=== PATIENT | female | born 1945 | race Caucasian/White ===

== ENCOUNTER → 2018-05-18 | Outpatient (CLI) | payer MEDICARE ==
--- NOTE | 2018-05-18 19:39 | CT ---
EXAMINATION TYPE: CT ChestAbdPelvis w con DATE OF EXAM: 05/18/2018 INDICATION: Colon cancer follow-up. COMPARISON: 02/26/2018, [facility] CT DLP: 665.1 mGycm CONTRAST: Performed with Oral Contrast and with IV Contrast, patient injected with 100 mL of Isovue M300. TECHNIQUE: Axial images at 5 mm thick sections. Reconstructed images in the coronal plane. Delayed images through the kidneys. FINDINGS: CT CHEST: Portion of the thyroid visualized is normal. No suspicious lung nodules or focal infiltrates are present. No enlarged mediastinal or hilar adenopathy is evident. The ascending aorta diameter at the level of the main pulmonary artery is 3.2 cm. The main pulmonary artery diameter at the bifurcation is 2.3 cm. Catheter is in the superior vena cava extending to the tip in the right atrium. CT ABDOMEN: Liver: Normal Spleen: Normal Pancreas: Normal Adrenal glands: The adrenal glands are normal. Gallbladder: Surgically absent. Kidneys: No masses are evident. No hydronephrosis is present. Left peripelvic cysts are present. D elayed images were obtained through the kidneys, which remain unremarkable. Aorta: Vascular calcification is within the aorta. Inferior vena cava: Normal. CT PELVIS: Loops of bowel within the abdomen and pelvis are normal. There are loops of bowel which are incom pletely distended or lack oral contrast limiting their evaluation. Scattered diverticuli are within t he sigmoid colon. Fecal debris is through the colon. Discrete underlying mass is not identified. Oral contrast extends to the distal descending colon region. Anastomosis from prior ascending marina-colect mae is evident. Appendix: Not evident Urinary bladder: Normal. Genitourinary structures: Uterus and ovaries are not identified. No free fluid is within the pelvis Osseous structures: No suspicious lytic or sclerotic lesions. Facet changes are present within the justyna mbar spine. Some degenerative disc changes are present. IMPRESSIONS: 1. No suspicious changes to suggest recurrent or metastatic colon cancer
== END | disposition home or self-care (01) ==
LOC: RADCTMAIN 10:13
PROVIDERS: ATTEND Internal Medicine Hematology & Oncology
DX: Z03.89 Encounter for observation for other suspected diseases and conditions ruled out (principal); C18.0 Malignant neoplasm of cecum
CPT/HCPCS: 82565; 84520; 71260; 74177; 36415; Q9967

== ENCOUNTER → 2018-06-15 | Outpatient (CLI) | payer MEDICARE ==
--- NOTE | 2018-06-15 13:35 | MM ---
Reason for exam: additional evaluation requested from prior study. Last mammogram was performed 9 years and 4 months ago. History: Patient is postmenopausal and has history of other cancer at age 72. Core biopsy of the left breast. 2 core biopsies of the right breast. Took estrogen for 12 years beginning at age 36. Took progesterone for 12 years beginning at age 36. Physical Findings: Nurse did not find any significant physical abnormalities on exam. MG 3D Diag Mammo W/Cad LT CC and MLO view(s) were taken of the left breast. Prior study comparison: April 10, 2018, mammogram. April 08, 2018, mammogram. There are scattered fibroglandular densities. Posterior upper outer quadrant group of calcifictions are unchanged from 3 months ago. Biopsy recommended. These results were verbally communicated with the patient and result sheet given to the patient on 06/15/18. ASSESSMENT: Suspicious, BI-RAD 4 RECOMMENDATION: Surgical consultation and stereotactic core biopsy of the left breast. Called with mammographic findings and has scheduled an appointment for the patient for 06/18/18 at 1:[address] Cobos. PRELIMINARY REPORT CALLED AND FAXED TO DR. COBOS ON 06/15/18.
== END | disposition home or self-care (01) ==
LOC: RADMAMWWP 09:59
PROVIDERS: ATTEND Internal Medicine Hematology & Oncology
DX: R92.8 Other abnormal and inconclusive findings on diagnostic imaging of breast (principal)
CPT/HCPCS: 77065; G0279; 77061

== ENCOUNTER → 2019-05-18 | Outpatient (CLI) | payer MEDICARE ==
--- NOTE | 2019-05-18 16:33 | CT ---
EXAMINATION TYPE: CT ChestAbdPelvis w con DATE OF EXAM: 05/18/2019 COMPARISON: 11/13/2018, 05/18/2018 HISTORY: 73-year-old female Follow up for colon cancer. TECHNIQUE: Contiguous axial scanning of the chest, abdomen, and pelvis performed with IV Contrast, pa tient injected with 100ml mL of Isovue 300. Delayed images through the kidneys were obtained. Coronal /sagittal reconstructions performed. CT DLP: 984.3 mGycm Automated exposure control for dose reduction was used. FINDINGS: CHEST: Heart upper limits of normal in size without pericardial effusion. Aorta normal caliber with conventional branching anatomy and mild arch calcifications. Right anterior chest wall injection port with catheter tip at the cavoatrial junction. No thoracic lymphadenopathy by CT size criteria. Mild hazy dependent atelectasis in the lungs. No consolidation or pleural effusion. ABDOMEN: Subcentimeter hypodensity peripheral right liver lobe is unchanged from 05/18/2018, probably represent ing a tiny cyst. Additional subcentimeter hypodensity medial aspect of the inferior right liver lobe is also unchanged. Portal venous system is patent. No biliary ductal dilatation. Cholecystectomy clips. Adrenal glands, right kidney, spleen, and pancreas appear within normal limits. Some surgical clips noted within the mesentery of the upper to mid abdomen. Parapelvic cyst left kidney unchanged. There is sigmoid diverticulosis without pericolonic inflammatory change. Evidence of prior right hemicolectomy with ileocolonic anastomosis at the level of the mid transverse colon. A 6 mm mesenteric lymph node in the right paramedian mid abdomen previously measured 8 mm on 9 and was not appreciable on 05/18/2018. Possible anterior mesenteric lymph node near the anastomosis measures 5 mm versus 1 cm, previously. Pelvis: Bladder partially distended. Uterus surgically absent. No abnormal fluid collection in the pelvis or pelvic lymphadenopathy. Some surgical clips along the right iliac chain. Bones: Hypertrophic facet arthropathy mid to lower lumbar spine with grade 1 anterolisthesis at L4-L5. Stabl e lucency within the L2 vertebral body probably represents a hemangioma. No osseous destructive proce ss seen. IMPRESSION: 1. STATUS POST RIGHT HEMICOLECTOMY WITH ILEOCOLONIC ANASTOMOSIS AT THE MID TRANSVERSE COLON. 2. A 6 MM RIGHT PARAMEDIAN MID ABDOMINAL MESENTERIC LYMPH NODE MEASURED 8 MM, PREVIOUSLY. AN ANTERIOR MESENTERIC LYMPH NODE NEAR THE ILEOCOLONIC ANASTOMOSIS MEASURES 5 MM VERSUS 1 CM, PREVIOUSLY. QUERY ANY INTERVAL TREATMENT. 3. NO NEW LYMPHADENOPATHY OR OTHER EVIDENCE FOR METASTATIC DISEASE.
== END | disposition home or self-care (01) ==
LOC: RADPROMAIN 13:46
PROVIDERS: ATTEND Internal Medicine Hematology & Oncology
DX: C18.4 Malignant neoplasm of transverse colon (principal)
CPT/HCPCS: 82565; 84520; 71260; 74177; 36415; J1642; Q9967

== ENCOUNTER → 2019-06-21 | Outpatient (CLI) | payer MEDICARE ==
--- NOTE | 2019-06-21 09:09 | MM ---
Reason for exam: additional evaluation requested from prior study. Last mammogram was performed 1 year ago. History: Patient is postmenopausal and has history of other cancer at age 72. Core biopsy of the left breast. 2 core biopsies of the right breast. Took estrogen for 12 years beginning at age 36. Took progesterone for 12 years beginning at age 36. Physical Findings: Nurse did not find any significant physical abnormalities on exam. MG 3D Diag Mammo W/Cad CIELO Bilateral CC and MLO view(s) were taken. Prior study comparison: June 15, 2018, left breast MG 3d diag mammo w/cad LT. April 10, 2018, mammogram. The breast tissue is heterogeneously dense. This may lower the sensitivity of mammography. Grouped calcifications with adjacent asymmetry unchanged for 1 yest. Additional 6 month follow up recommended. Otherwise, no significant change. These results were verbally communicated with the patient and result sheet given to the patient on 06/21/19. ASSESSMENT: Probably benign, BI-RAD 3 RECOMMENDATION: Follow-up diagnostic mammogram of the left breast in 6 months. (total 1.5 year follow up)
== END | disposition home or self-care (01) ==
LOC: RADMAMWWP 08:08
PROVIDERS: ATTEND Internal Medicine Hematology & Oncology
DX: R92.8 Other abnormal and inconclusive findings on diagnostic imaging of breast (principal)
CPT/HCPCS: 77066; G0279; 77062

== ENCOUNTER → 2020-06-16 | Outpatient (CLI) | payer MEDICARE ==
--- NOTE | 2020-06-16 14:53 | MM ---
Reason for exam: additional evaluation requested from prior study. Last mammogram was performed 1 year ago. History: Patient is postmenopausal and has history of other cancer at age 72. Core biopsy of the left breast. 2 core biopsies of the right breast. Took estrogen for 12 years beginning at age 36. Took progesterone for 12 years beginning at age 36. Physical Findings: Nurse did not find any significant physical abnormalities on exam. MG 3D Diag Mammo W/Cad LT CC, MLO, LM, CC with magnification, and LM with magnification view(s) were taken of the left breast. Prior study comparison: June 21, 2019, bilateral MG 3d diag mammo w/cad CIELO. June 15, 2018, left breast MG 3d diag mammo w/cad LT. There are scattered fibroglandular densities. This finding is changed when compared with previous exams. These results were verbally communicated with the patient and result sheet given to the patient on 06/16/20. ASSESSMENT: Suspicious, BI-RAD 4 RECOMMENDATION: Stereotactic core biopsy of the left breast. (2 sites) Called Dr. Cobos's office with mammographic findings. Patient will follow up with her physician in [place] and have the biopsy there. Patient is leaving for [place] and will not return until January 2021. PRELIMINARY REPORT CALLED AND FAXED TO DR. COBOS ON 06/16/20.
== END | disposition home or self-care (01) ==
LOC: RADMAMWWP 12:48
PROVIDERS: ATTEND Internal Medicine Hematology & Oncology
DX: R92.8 Other abnormal and inconclusive findings on diagnostic imaging of breast (principal)
CPT/HCPCS: 77065; G0279; 77061

== ENCOUNTER 2021-02-27 12:10 | Inpatient (IN) | payer MEDICARE ==
[2021-02-27 12:19] LABS: Glucose,Whole Blood 174 mg/dL (75-99)
[2021-02-27] MEDS ORDERED: SODIUM CHLORIDE 0.9% 1,000 ML IV STA (12:20)
[2021-02-27] MEDS ORDERED: ASPIRIN 81 MG PO STA (12:20)
[2021-02-27] MEDS ORDERED: TRIMETHOBENZAMIDE 100 MG/ML 2 ML VIAL IM STA (12:20)
[2021-02-27] MEDS ORDERED: AMIODARONE 360 MG in DEXTROSE 5% IN WATER 200 ML IV ONE ×2 (12:21)
--- NOTE | 2021-02-27 12:25 | ED ---
Arrhythmia/Palpitations HPI - General Stated Complaint: cardiac arrest Time Seen by Provider: 02/27/21 12:19 - History of Present Illness Initial Comments: This is a 75-year-old female with a history of CAD, congestive heart failure with like chest placement presents for department after ventricular arrhythmia and cardiac arrest. The patient recently had stents placed and the like us placed down in [place]. She states that she is planning to have a bypass however they're waiting for her heart function to improve. Prior to her undergoing surgery. She states that she was in her normal state of health and has been doing well when today she got lightheaded and then had a syncopal event. She states her life that shocked her and an ambulance was called. EMS states that the patient was awake and alert when they arrived however suddenly went unresponsive and appeared to go into ventricular tachycardia. [employer] again defibrillated her with results of sinus rhythm with multiple PVCs. She was loaded with 300 mg of amiodarone. The patient's mental status improved in route. Blood pressures ranged from 160 systolic to 60 systolic prior to ar rival. The patient follows with Dr. Nice as an outpatient for cardiology. She states that she recently had an appointment with him. She states over the last few days she's been having diarrhea after meals. No nausea or vomiting. No abdominal pain. No chest pain or shortness of breath or palpitations. She states that she did not have any chest pain, pressure, or shortness of breath today. No diaphoresis. She currently denies any of these things however does complain of feeling a little bit nauseated currently. Otherwise she feels generally weak however has no other Acute complaints. - Related Data Home Medications Medication Instructions Recorded Confirmed Aspirin EC [Ecotrin Low Dose] 81 mg PO DAILY 02/27/21 02/27/21 Bimatoprost [Lumigan .01% Ophth 1 drop LEFT EYE HS 02/27/21 02/27/21 Soln] Brimonidine Tartrate/Timolol 1 drop LEFT EYE BID 02/27/21 02/27/21 [Combigan 0.2%-0.5% Eye Drops] Loperamide [Imodium] 2 mg PO QID PRN 02/27/21 02/27/21 Loteprednol Etabonate [Inveltys] 1 drop RIGHT EYE DAILY 02/27/21 02/27/21 Melatonin 3 mg PO HS PRN 02/27/21 02/27/21 Metoprolol Succinate [Toprol XL] 25 mg PO DAILY 02/27/21 02/27/21 Pantoprazole Sodium [Protonix] 40 mg PO DAILY 02/27/21 02/27/21 Pravastatin Sodium [Pravachol] 80 mg PO HS 02/27/21 02/27/21 Ticagrelor [Brilinta] 90 mg PO BID 02/27/21 02/27/21 amLODIPine [Norvasc] 10 mg PO DAILY 02/27/21 02/27/21 lisinopriL 40 mg PO DAILY 02/27/21 02/27/21 Allergies Allergy/AdvReac Type Severity Reaction Status Date / Time morphine AdvReac Nausea & Verified 02/27/21 12:56 Vomiting Review of Systems ROS Statement: Those systems with pertinent positive or pertinent negative responses have been documented in the HPI. ROS Other: All systems not noted in ROS Statement are negative. General Exam - General Exam Comments Initial Comments: Constitutional: Awake alert patient is somewhat sleepy however will answer questions appropriately and give a history Head: Normocephalic atraumatic Eyes: no conjunctival injection No scleral icterus EOMI Neck: No JVD Supple Heart: Regular rate with multiple ectopic beats normal S1-S2 no murmurs Lungs: Clear to auscultation bilaterally No wheezing No rales Abdomen: Soft nondistended nontender Extremities: Non edematous DP pulses intact Radial pulses intact, the extremities are warm to touch Neuro: A&Ox3 No focal neurologic deficits Psych: Appropriate mood and affect Course Vital Signs 02/27/21 02/27/21 12:12 12:34 Temperature 97.9 F Pulse Rate 86 84 Respiratory 18 18 Rate Blood Pressure 131/49 126/60 O2 Sat by Pulse 96 96 Oximetry - Reevaluation(s) Reevaluation #1: Repeat EKG showing normal sinus rhythm with a rate of 81. There is no abnormal ST segment changes or T-wave inversions. QTC is 532 and QRS is 140. There is a right bundle-branch pathology present. Ectopy has resolved. 02/27/21 12:50 EKG Findings - EKG Comments: EKG Findings:: EKG is showing sinus rhythm with a rate of 94. There are multiple ectopic beats present. There is a right bundle-branch block pathology. QTC is 562. Other intervals appear normal. However QRS is slightly widened likely from the bundle-branch block. Medical Decision Making - Medical Decision Making Is a 75-year-old female who presents emergency department for ventricular tachycardia, sick being cardiac arrest. On arrival the patient was awake and al ert however complaining of generalized fatigue and nausea. Vital signs were stable on arrival. Her monitor and storage bin tender did reveal quite a bit of ectopy and some short runs of ventricular tachycardia. The patient was maintained on amiodarone drip. She is continued to be monitored. She was noted to have hypokalemia and hypomagnesemia and both of these were corrected with IV medications. Dr. Nice was able to evaluate the patient in the emergency department and plans on performing an echocardiogram and agrees with current management at this time. The patient will require ICU monitoring and Dr. Azul and Dr. helm were both updated and agree with plan of care at this time. - Lab Data Result diagrams: 02/27/21 12:23 02/27/21 12:23 Lab Results 02/27/21 02/27/21 02/27/21 Range/Units 12:17 12:23 12:23 WBC 10.8 H (3.8-10.6) k/uL RBC 3.89 (3.80-5.40) m/uL Hgb 11.5 (11.4-16.0) gm/dL Hct 35.2 (34.0-46.0) % MCV 90.5 (80.0-100.0) fL MCH 29.5 (25.0-35.0) pg MCHC 32.6 (31.0-37.0) g/dL RDW 15.3 (11.5-15.5) % Plt Count 381 (150-450) k/uL MPV 8.4 Neutrophils % 87 % Lymphocytes % 6 % Monocytes % 4 % Eosinophils % 1 % Basophils % 0 % Neutrophils # 9.4 H (1.3-7.7) k/uL Lymphocytes # 0.6 L (1.0-4.8) k/uL Monocytes # 0.5 (0-1.0) k/uL Eosinophils # 0.1 (0-0.7) k/uL Basophils # 0.0 (0-0.2) k/uL Sodium 139 (137-145) mmol/L Potassium 3.0 L (3.5-5.1) mmol/L Chloride 113 H (98-107) mmol/L Carbon Dioxide 17 L (22-30) mmol/L Anion Gap 9 mmol/L BUN 15 (7-17) mg/dL Creatinine 1.14 H (0.52-1.04) mg/dL Est GFR (CKD-EPI)AfAm 54 (>60 ml/min/1.73 sqM) Est GFR (CKD-EPI)NonAf 47 (>60 ml/min/1.73 sqM) Glucose 174 H (74-99) mg/dL POC Glucose (mg/dL) 174 H (75-99) mg/dL POC Glu Flight [employer] Scheduler ID Rhonda Branch Calcium 8.3 L (8.4-10.2) mg/dL Magnesium 1.5 L (1.6-2.3) mg/dL Total Bilirubin 0.7 (0.2-1.3) mg/dL AST 26 (14-36) U/L ALT 11 (4-34) U/L Alkaline Phosphatase 68 (38-126) U/L NT-Pro-B Natriuret Pep pg/mL Total Protein 5.7 L (6.3-8.2) g/dL Albumin 3.3 L (3.5-5.0) g/dL 02/27/21 Range/Units 12:23 WBC (3.8-10.6) k/uL RBC (3.80-5.40) m/uL Hgb (11.4-16.0) gm/dL Hct (34.0-46.0) % MCV (80.0-100.0) fL MCH (25.0-35.0) pg MCHC (31.0-37.0) g/dL RDW (11.5-15.5) % Plt Count (150-450) k/uL MPV Neutrophils % % Lymphocytes % % Monocytes % % Eosinophils % % Basophils % % Neutrophils # (1.3-7.7) k/uL Lymphocytes # (1.0-4.8) k/uL Monocytes # (0-1.0) k/uL Eosinophils # (0-0.7) k/uL Basophils # (0-0.2) k/uL Sodium (137-145) mmol/L Potassium (3.5-5.1) mmol/L Chloride (98-107) mmol/L Carbon Dioxide (22-30) mmol/L Anion Gap mmol/L BUN (7-17) mg/dL Creatinine (0.52-1.04) mg/dL Est GFR (CKD-EPI)AfAm (>60 ml/min/1.73 sqM) Est GFR (CKD-EPI)NonAf (>60 ml/min/1.73 sqM) Glucose (74-99) mg/dL POC Glucose (mg/dL) (75-99) mg/dL POC Glu Flight Crew Scheduler ID Calcium (8.4-10.2) mg/dL Magnesium (1.6-2.3) mg/dL Total Bilirubin (0.2-1.3) mg/dL AST (14-36) U/L ALT (4-34) U/L Alkaline Phosphatase (38-126) U/L NT-Pro-B Natriuret Pep 4950 pg/mL Total Protein (6.3-8.2) g/dL Albumin (3.5-5.0) g/dL Critical Care Time Critical Care Time: Yes (VTACH) Total Critical Care Time: 45 Critical Care Time: Ur care time was spent obtaining history from EMS, the patient, and family, exam ining the patient, ordering labs and radiographic studies, interpreting the studies, speaking with consultants. Patient had medications ordered and the patient was reevaluated multiple times. Disposition Clinical Impression: V-tach Disposition: ADMITTED IP TO THIS HOSP Condition: Critical Referrals: Nonstaff,Physician [REFERRING] - 1-2 days
[2021-02-27 12:46] LABS: Basophils % (A) 0 %; Eosinophils # (A) 0.1 k/uL (0-0.7); Eosinophils % (A) 1 %; HCT 35.2 % (34.0-46.0); HGB 11.5 gm/dL (11.4-16.0); Lymphocytes # (A) 0.6 k/uL (1.0-4.8); Lymphocytes % (A) 6 %; MCH 29.5 pg (25.0-35.0); MCHC 32.6 g/dL (31.0-37.0); MCV 90.5 fL (80.0-100.0); Mean Platelet Volume 8.4; Monocytes # (A) 0.5 k/uL (0-1.0); Monocytes % (A) 4 %; Neutrophils # (A) 9.4 k/uL (1.3-7.7); Neutrophils % (A) 87 %; Platelet Count 381 k/uL (150-450); RBC 3.89 m/uL (3.80-5.40); RDW 15.3 % (11.5-15.5); WBC 10.8 k/uL (3.8-10.6)
[2021-02-27 12:52] LABS: Albumin 3.3 g/dL (3.5-5.0); Calcium 8.3 mg/dL (8.4-10.2); Magnesium 1.5 mg/dL (1.6-2.3); Total Bilirubin 0.7 mg/dL (0.2-1.3); Total Protein 5.7 g/dL (6.3-8.2)
[2021-02-27] MEDS: MAGNESIUM SULFATE-D5W PMX 1 GM in DEXTROSE/WATER 1 100ML.BAG IVPB SCH ×2 (13:10→14:36)
[2021-02-27] MEDS: POTASSIUM CHLORIDE 10 MEQ in WATER FOR INJECTION 1 100ML.BAG IVPB SCH ×5 (13:10→21:32)
--- NOTE | 2021-02-27 13:19 | XR ---
EXAMINATION TYPE: XR chest 1V portable DATE OF EXAM: 02/27/2021 COMPARISON: None HISTORY: Chest pain TECHNIQUE: Single frontal view of the chest is obtained. FINDINGS: Mediport catheter seen near surgical clip involving the left lung apex. Heart size is mild ly prominent. No pleural effusion. No interstitial edema. Atherosclerotic change of the aorta. IMPRESSION: No acute process. Mild cardiomegaly.
[2021-02-27] MEDS ORDERED: NALOXONE 0.4 MG/ML 1 ML VIAL IV PRN (13:22)
[2021-02-27 14:57] LABS: INR 1.1 (<1.2); Partial Thromboplastin Time 23.4 sec (22.0-30.0); Prothrombin Time 11.7 sec (9.0-12.0)
[2021-02-27] MEDS: SPIRONOLACTONE 25 MG TAB PO SCH (15:05)
--- NOTE | 2021-02-27 17:28 | ECHOF ---
Referral Reason:cm MEASUREMENTS -------- HEIGHT: 152.4 cm WEIGHT: 65.8 kg BP: IVSd: 1.3 cm (0.6 - 1.1) LVIDd: 3.7 cm (3.9 - 5.3) LVPWd: 1.1 cm (0.6 - 1.1) IVSs: 1.2 cm LVIDs: 3.4 cm LVPWs: 2.0 cm LAESV Index (A-L): 32.81 ml/m Ao Diam: 3.2 cm (2.0 - 3.7) AV Cusp: 1.8 cm (1.5 - 2.6) LA Diam: 3.1 cm (2.7 - 3.8) MV EXCURSION: 12.842 mm (> 18.000) MV EF SLOPE: 66 mm/s (70 - 150) EPSS: 1.8 cm MV E Roel: 1.33 m/s MV DecT: 193 ms MV A Roel: 0.62 m/s MV E/A Ratio: 2.16 RAP: 5.00 mmHg RVSP: 9.79 mmHg FINDINGS -------- This was a technically adequate study. The left ventricular size is normal. There is mild concentric left ventricular hypertrophy. Overa ll left ventricular systolic function is severely impaired with, an EF between 25 - 30 %. Basal Seg ment Lv only. The right ventricle is normal in size. LA is midly dilated 29-33ml/m2. The right atrial size is normal. The aortic valve is trileaflet and appears structurally normal. The mitral valve is normal. Mild mitral regurgitation is present. The tricuspid valve appears structurally normal. Mild tricuspid regurgitation present. Right vent ricular systolic pressure is normal at < 35 mmHg. There is no pulmonic regurgitation present. The aortic root size is normal. There is no pericardial effusion. CONCLUSIONS -------- 1. The left ventricular size is normal. 2. There is mild concentric left ventricular hypertrophy. 3. Overall left ventricular systolic function is severely impaired with, an EF between 25 - 30 %. 4. Basal Segment Lv only. apex is akinetic 5. LA is midly dilated 29-33ml/m2. 6. Mild mitral regurgitation is present. 7. Mild tricuspid regurgitation present. 8. There is no pericardial effusion. MUD JACK NOZZLE WORKER: Margareth Flores RDCS
--- NOTE | 2021-02-27 17:31 | P.CNPUL ---
History of Present Illness Consult date: 02/27/21 Requesting physician: Ritu Walker Reason for consult: other (Recurrent episodes of ventricular tachycardia) Chief complaint: Syncopal episodes and ventricular tachycardia History of present illness: This is a 75-year-old female with history of coronary artery disease, previous [place], previous stent placement 2 in [place], patient had a life vest placed recently while in [place], and stent placement in [place], apparently the patient has history of severe LV dysfunction, and the plan was to decide in the future whether the patient would require AICD placement. This will depend on her LV function improvement if any. I am not certain whether the patient was also being considered for CABG. Patient has been experiencing since early this morning intermittent episodes of lightheadedness and had 1 syncopal event. Patient had 1 defibrillation done by her life vest earlier this morning, and since then she had at least 5 further episodes. EMS arrived to the scene after her initial defibrillation. Patient was almost going into a syncopal episode, and she was noted to have ventricular tachycardia. Patient had a witnessed defibrillation done by the life vest when they were at the scene. On the monitor the patient had ventricular tachycardia and later on had multiple PVCs. Patient was loaded with 300 mg of amiodarone, and arrangements were made for her to be brought into the ER. Patient normally sees Dr. Nice on outpatient basis. And he will be seeing the patient in the ER. During my evaluation, the patient had a bit of nausea but no palpitations, no chest pain, no shortness of breath. EKG in the ER showed normal sinus rhythm rate of 81, no acute ischemic changes noted. Labs in the ER showed normal CBC. Normal pro time and INR. Low potassium of 3.0 bicarb is 17 BUN of 15 creatinine 1.14, BNP level was 4950 troponin 0.024. PCR for COVID-19 was negative. Chest x-ray showed no evidence of infiltrate and no evidence of pulmonary edema considering the patient is having intermittent episodes of ventricular tachycardia, I was asked to see the patient for admission to the ICU. I will accept the patient to be admitted to the ICU, and cardiology to see the patient in consultation Review of Systems Constitutional: Weakness, no weight loss, no fever, no chills. HEENT: Negative. Pulmonary: Negative. Cardiac: As noted in HPI. GI: Intermittent episodes of nausea Genitourinary: Negative. Musculoskeletal: Negative Endocrine: Negative Hematologic: Negative Neurologic: Near syncopal episode. Psychiatric: Negative. Skin: Negative. Past Medical History Past Medical History: Cancer, Chest Pain / Angina Additional Past Medical History / Comment(s): Colon. History of Any Multi-Drug Resistant Organisms: None Reported Past Surgical History: Heart Catheterization, Heart Catheterization With Stent Past Psychological History: No Psychological Hx Reported Smoking Status: Never smoker Past Alcohol Use History: Occasional Past Drug Use History: None Reported Medications and Allergies Home Medications Medication Instructions Recorded Confirmed Type Aspirin EC [Ecotrin Low Dose] 81 mg PO DAILY 02/27/21 02/27/21 History Bimatoprost [Lumigan .01% Ophth 1 drop LEFT EYE HS 02/27/21 02/27/21 History Soln] Brimonidine Tartrate/Timolol 1 drop LEFT EYE BID 02/27/21 02/27/21 History [Combigan 0.2%-0.5% Eye Drops] Loperamide [Imodium] 2 mg PO QID PRN 02/27/21 02/27/21 History Loteprednol Etabonate [Inveltys] 1 drop RIGHT EYE DAILY 02/27/21 02/27/21 History Melatonin 3 mg PO HS PRN 02/27/21 02/27/21 History Metoprolol Succinate [Toprol XL] 25 mg PO DAILY 02/27/21 02/27/21 History Pantoprazole Sodium [Protonix] 40 mg PO DAILY 02/27/21 02/27/21 History Pravastatin Sodium [Pravachol] 80 mg PO HS 02/27/21 02/27/21 History Ticagrelor [Brilinta] 90 mg PO BID 02/27/21 02/27/21 History amLODIPine [Norvasc] 10 mg PO DAILY 02/27/21 02/27/21 History lisinopriL 40 mg PO DAILY 02/27/21 02/27/21 History Allergies Allergy/AdvReac Type Severity Reaction Status Date / Time morphine AdvReac Nausea & Verified 02/27/21 12:56 Vomiting Physical Exam Vitals: Vital Signs Temp Pulse Resp BP Pulse Ox 02/27/21 16:48 75 16 121/60 99 02/27/21 15:00 67 20 112/57 98 02/27/21 14:50 71 18 112/57 96 02/27/21 14:40 71 20 117/58 98 02/27/21 14:30 70 22 115/62 94 L 02/27/21 14:20 76 18 115/62 90 L 02/27/21 14:10 75 18 114/59 99 02/27/21 14:00 75 18 115/58 94 L 02/27/21 13:50 70 18 115/58 97 02/27/21 13:40 74 18 109/56 98 02/27/21 13:20 77 18 121/57 98 02/27/21 13:10 78 18 128/76 97 02/27/21 13:00 89 18 114/56 99 02/27/21 12:50 81 18 114/56 97 02/27/21 12:40 82 18 126/60 98 02/27/21 12:34 83 18 126/60 96 02/27/21 12:12 97.9 F 86 18 131/49 96 Intake and Output 02/27/21 02/27/21 02/27/21 06:59 14:59 22:59 Other: Weight 63.503 kg Physical Exam: Revealed a 75-year-old female in no distress, pleasant. Head: Atraumatic, normocephalic. HEENT:[Neck is supple.] [No neck masses.] [No thyromegaly.] [No JVD.] Chest: [Clear throughout, no crackles, no rhonchi, no wheezes.] Cardiac Exam: [Normal S1 and S2, no S3 gallop, no murmur.] Abdomen: [Soft, nontender, no megaly, no rebound, no guarding, normal bowel sounds.] Extremities: [No clubbing, no edema, no cyanosis.] Neurological Exam: [No focal neurologic deficit.] Alert and oriented 3. Psychiatric: Normal mood affect and normal mental status examination. Skin: No rashes. Results - Laboratory Findings CBC and BMP: 02/27/21 12:23 02/27/21 12:23 PT/INR, D-dimer PT 11.7 sec (9.0-12.0) 02/27/21 12:23 INR 1.1 (<1.2) 02/27/21 12:23 Abnormal lab findings: Abnormal Labs 02/27/21 02/27/21 02/27/21 12:17 12:23 12:23 WBC 10.8 H Neutrophils # 9.4 H Lymphocytes # 0.6 L Potassium 3.0 L Chloride 113 H Carbon Dioxide 17 L Creatinine 1.14 H Glucose 174 H POC Glucose (mg/dL) 174 H Calcium 8.3 L Magnesium 1.5 L Total Protein 5.7 L Albumin 3.3 L - Diagnostic Findings Chest x-ray: image reviewed (As noted in HPI) Additional studies: EKG: As noted in HPI Assessment and Plan Assessment: Impression: Recurrent ventricular tachycardia Recurrent activation of life vest secondary to ventricular tachycardia Hypokalemia and hypomagnesemia, being treated as per protocol. History of underlying coronary artery disease. Acute kidney injury secondary to ventricular tachycardia and LV dysfunction Ischemic cardiomyopathy and LV dysfunction Recommendation: Transfer patient to ICU Continue close monitoring Address electrolyte imbalance including hypokalemia and hypomagnesemia Continue amiodarone as per protocol. Cardiology to see on consultation. Patient may require AICD. We'll continue to follow while in ICU. Time with Patient: Greater than 30
[2021-02-27 19:25] LABS: Glucose,Whole Blood 130 mg/dL (75-99)
[2021-02-27] MEDS: AMIODARONE 450 MG in DEXTROSE 5% IN WATER 250 ML IV SCH ×2 (20:04)
[2021-02-27] MEDS: METOPROLOL SUCCINATE (ER) 25 MG TAB.ER.24H PO SCH (20:05)
[2021-02-27] MEDS: TICAGRELOR 90 MG TAB PO SCH (20:05)
[2021-02-27] MEDS ORDERED: ONDANSETRON 4 MG/2 ML VIAL IVP PRN (20:16)
[2021-02-27] MEDS ORDERED: Potassium Replacement Protocol 1 EACH MISC MISCELLANE PRN (20:20)
[2021-02-27] MEDS: PRAVASTATIN SODIUM 80 MG TAB PO SCH (20:39)
--- NOTE | 2021-02-27 20:53 | CONS ---
CONSULTATION ATTENDING PHYSICIAN: Dr. Cobos. Mrs. Contreras is a 75-year-old female with a history of colon cancer, followed by Dr. Cobos, who recently returned from [place]. In November of this year while in [place], had evidence of an acute anterior wall myocardial infarction and received two stents. She had evidence of cardiomyopathy and had a LifeVest. She was seen in out office for the first time last week and she was stable clinically. She had no symptoms of chest discomfort. Her breathing has been stable. She had no dizziness or palpitation. She had no significant peripheral edema. For the last three days she has been having nausea and vomiting and diarrhea and this morning had a syncopal episode and what appears a discharge from the Life vest and had another episode of discharge in the ambulance. In the emergency room she is in sinus mechanism with frequent single PVCs. The patient denies any chest pain. She is feeling weak and tired. She is still having some nausea. She did not feel the discharge from the device. Her coronary risk factors are remarkable for history of hypertension. She is a nonsmoker, nondiabetic. MEDICATION: Her medications at home include lisinopril 40 mg daily, amlodipine 10 mg daily, Brilinta 90 mg twice a day, pravastatin 80 mg daily, Protonix 40 mg daily, metoprolol succinate 25 mg daily, ( ), Imodium, aspirin, and the eyedrops. REVIEW OF SYSTEMS: RESPIRATORY SYSTEM: She had dyspnea on exertion. She has the fatigue. No recent cough or fever. GI SYSTEM: She had nausea, vomiting, diarrhea. No GI bleeding. SYSTEM: No dysuria or hematuria. NERVOUS SYSTEM: No stroke or seizure. PHYSICAL EXAMINATION: She is a 75-year-old female, alert, appears to be tired. Blood pressure 122/60 with a heart rate in the 80s. HEAD: Normocephalic. EYES: Sclerae anicteric, NECK: Good carotid upstroke. No bruit. LUNGS: Clear to auscultation. HEART: Regular rate and rhythm, S1, S2. No S3 with extra systole and a systolic murmur. No diastolic murmur, no rub. ABDOMEN: Soft, nontender. Positive bowel sounds. No organomegaly. EXTREMITIES: No edema. Chest x-ray revealed no acute changes. EKG revealed a sinus mechanism with right bundle branch block, evidence of anterior wall myocardial infarction and single PVCs with left axis deviation and evidence of inferior wall myocardial infarction consistent with anteroapical myocardial infarction. LAB DATA: Revealed potassium 3.0, BUN and creatinine 15 and 1.1, magnesium 1.5, hemoglobin of 11.5, white blood cell of 10.8. IMPRESSION: 1. Syncopal episode, probable ventricular tachycardia. Could be exacerbated by the hypokalemia and hypomagnesemia. 2. History of ischemic cardiomyopathy status post stenting of the LAD in a setting of an acute myocardial infarction in [place]. 3. Status post LifeVest for the ischemic cardiomyopathy. 4. Diarrhea and nausea, etiology unclear. 5. History of hypertension. 6. History of colon cancer, stable, followed by Dr. Cobos. RECOMMENDATION: Will replace her potassium and magnesium. I will restart her on a beta chris. Will continue IV amiodarone. Will continue on aspirin and Brilinta. I will obtain echocardiogram with Doppler. Follow her cardiac enzymes. We will download the data from the LifeVest and depending on her progress, further recommendations will be made. Thank you for this consult. We will follow with you. MMODL / IJN: [id number] /
[2021-02-27] MEDS ORDERED: TRIMETHOBENZAMIDE 100 MG/ML 2 ML VIAL IM PRN (20:58)
[2021-02-27] MEDS ORDERED: POTASSIUM CHLORIDE ER 20 MEQ TAB.ER PO ONE (22:30)
[2021-02-28 05:13] LABS: Basophils % (A) 0 %; Eosinophils % (A) 0 %; HCT 34.5 % (34.0-46.0); HGB 11.2 gm/dL (11.4-16.0); Lymphocytes # (A) 0.6 k/uL (1.0-4.8); Lymphocytes % (A) 5 %; MCH 29.5 pg (25.0-35.0); MCHC 32.3 g/dL (31.0-37.0); MCV 91.1 fL (80.0-100.0); Mean Platelet Volume 8.6; Monocytes # (A) 0.5 k/uL (0-1.0); Monocytes % (A) 5 %; Neutrophils # (A) 9.8 k/uL (1.3-7.7); Neutrophils % (A) 89 %; Platelet Count 275 k/uL (150-450); RBC 3.79 m/uL (3.80-5.40); RDW 15.3 % (11.5-15.5)
[2021-02-28 05:29] LABS: ALT 17 U/L (4-34); AST 32 U/L (14-36); African American GFR (CKD) >90 (>60 ml/min/1.73 sqM); Albumin 3.4 g/dL (3.5-5.0); Alkaline Phosphatase 82 U/L (38-126); Anion Gap 10 mmol/L; Blood Urea Nitrogen 8 mg/dL (7-17); Calcium 8.8 mg/dL (8.4-10.2); Carbon Dioxide 17 mmol/L (22-30); Chloride 113 mmol/L (98-107); Glucose 98 mg/dL (74-99); Non-African American GFR(CKD) 80 (>60 ml/min/1.73 sqM); Potassium 4.2 mmol/L (3.5-5.1); Sodium 140 mmol/L (137-145); Total Bilirubin 0.5 mg/dL (0.2-1.3); Total Protein 5.9 g/dL (6.3-8.2)
--- NOTE | 2021-02-28 08:53 | PN ---
PROGRESS NOTE Mrs. Contreras is a 75-year-old female with a known history of colon cancer, followed by sarai Palm, who has sustained an acute myocardial infarction in the anterior wall in [place], underwent stenting. At that time had severe ischemic cardiomyopathy, has been maintained on a LifeVest pending repeat evaluation of left ventricular systolic function. She presented yesterday to the hospital with symptoms of nausea and vomiting and diarrhea. Had syncope with probable discharge from the LifeVest. The rhythm strip from the LifeVest downloads are not available at this time. She is feeling better this morning. Her breathing is better. She still has mild nausea but no diarrhea. She has no further ventricular tachycardia. She was hypokalemic and hypomagnesemic on presentation that has been replaced. She had a repeat echocardiogram yesterday that revealed ejection fraction of 25% to 30% with mild mitral and tricuspid regurgitation. She continues to be at this time on IV amiodarone, aspirin once a day, lisinopril 20 mg daily, metoprolol succinate 25 mg twice a day, pravastatin 80 mg daily, spironolactone 25 mg daily, Brilinta 90 mg twice a day. PHYSICAL EXAMINATION: Blood pressure 125/60 with a heart rate in 70s. LUNGS: Clear. HEART: Regular rate and rhythm S1, S2. No S3. No rub. ABDOMEN: Soft and nontender. EXTREMITIES: No edema. LAB DATA: Revealed hemoglobin of 11.2 BUN and creatinine of 8 and 0.73. Her troponin 0.026 and 0.022. IMPRESSION: 1. Syncopal episode with probable ventricular tachycardia and discharge from the LifeVest. 2. Severe ischemic cardiomyopathy, unchanged with no significant improvement. 3. Status post stenting of the left anterior descending in [place] in November. 4. History of colon cancer, stable. 5. Hypokalemia and hypomagnesemia, treated. RECOMMENDATION: From the cardiac standpoint in view of the event, I will obtain consultation with Dr. Upton to proceed with an ICD implantation. I discussed with the patient those findings and recommendation and she has full understanding and agreement. MMODL / IJN: [id number] /
[2021-02-28] MEDS: TICAGRELOR 90 MG TAB PO SCH ×2 (09:59→22:46)
[2021-02-28] MEDS: lisinopriL 20 MG TAB PO SCH (09:59)
[2021-02-28] MEDS: METOPROLOL SUCCINATE (ER) 25 MG TAB.ER.24H PO SCH ×2 (09:59→19:37)
[2021-02-28] MEDS: ASPIRIN 81 MG PO SCH (09:59)
[2021-02-28] MEDS: SPIRONOLACTONE 25 MG TAB PO SCH (10:00)
--- NOTE | 2021-02-28 10:08 | P.HPIM ---
History of Present Illness H&P Date: 02/27/21 Valerie Contreras, he is a 75-year-old female who presented to [facility] after having a syncopal episode, patient has a known history of coronary artery disease she recently had cardiac catheterization with stent placement, she was told that she needs coronary artery bypass surgery, however surgeon was waiting for her cardiac function to improve. In the meanwhile patient had a life vest placed on. Patient stated that she felt lightheaded and then had a syncopal episode, apparently patient had a ventricular arrhythmia and her life vest shocked her, EMS were called patient initially was alert and oriented when EMS arrived however he had a second episode of unresponsiveness, and apparently her life vest shocked her again. Patient was brought in to [facility] emergency room, on arrival to emergency room she was alert and oriented 3 in no distress, she denied having any chest pain or shortness of breath, vital examination on presentation revealed a temperature of 97.9 pulse 86 respiration 18 blood pressure 131/49 pulse ox 96% on room air. Laboratory data revealed a white blood count of 10.8 hemoglobin 11.5 platelet count 381 sodium 139 potassium 3.0 chloride 113 CO2 17 BUN 15 creatinine 1.14 glucose 174 troponin level 0.0-4 BNP 4950 COVID-19 PCR was negative , chest x- ray done in the emergency room revealed no acute pulmonary process mild cardio megaly , first EKG done in the emergency room revealed undetermined rhythm with right bundle branch block and T-wave abnormalities , repeat EKG revealed normal sinus rhythm with right bundle branch block and T-wave abnormality in the anterior and lateral . she was admitted to intensive care unit for further evaluation and treatment. Past Medical History Past Medical History: Cancer, Chest Pain / Angina Additional Past Medical History / Comment(s): Colon. History of Any Multi-Drug Resistant Organisms: None Reported Past Surgical History: Heart Catheterization, Heart Catheterization With Stent Past Psychological History: No Psychological Hx Reported Smoking Status: Never smoker Past Alcohol Use History: Occasional Past Drug Use History: None Reported Medications and Allergies Home Medications Medication Instructions Recorded Confirmed Type Aspirin EC [Ecotrin Low Dose] 81 mg PO DAILY 02/27/21 02/27/21 History Bimatoprost [Lumigan .01% Ophth 1 drop LEFT EYE HS 02/27/21 02/27/21 History Soln] Brimonidine Tartrate/Timolol 1 drop LEFT EYE BID 02/27/21 02/27/21 History [Combigan 0.2%-0.5% Eye Drops] Loperamide [Imodium] 2 mg PO QID PRN 02/27/21 02/27/21 History Loteprednol Etabonate [Inveltys] 1 drop RIGHT EYE DAILY 02/27/21 02/27/21 History Melatonin 3 mg PO HS PRN 02/27/21 02/27/21 History Metoprolol Succinate [Toprol XL] 25 mg PO DAILY 02/27/21 02/27/21 History Pantoprazole Sodium [Protonix] 40 mg PO DAILY 02/27/21 02/27/21 History Pravastatin Sodium [Pravachol] 80 mg PO HS 02/27/21 02/27/21 History Ticagrelor [Brilinta] 90 mg PO BID 02/27/21 02/27/21 History amLODIPine [Norvasc] 10 mg PO DAILY 02/27/21 02/27/21 History lisinopriL 40 mg PO DAILY 02/27/21 02/27/21 History Allergies Allergy/AdvReac Type Severity Reaction Status Date / Time morphine AdvReac Nausea & Verified 02/27/21 12:56 Vomiting Physical Exam Vitals: Vital Signs Temp Pulse Resp BP Pulse Ox 02/27/21 18:03 72 20 139/66 100 02/27/21 16:48 75 16 121/60 99 02/27/21 15:00 67 20 112/57 98 02/27/21 14:50 71 18 112/57 96 02/27/21 14:40 71 20 117/58 98 02/27/21 14:30 70 22 115/62 94 L 02/27/21 14:20 76 18 115/62 90 L 02/27/21 14:10 75 18 114/59 99 02/27/21 14:00 75 18 115/58 94 L 02/27/21 13:50 70 18 115/58 97 02/27/21 13:40 74 18 109/56 98 02/27/21 13:20 77 18 121/57 98 02/27/21 13:10 78 18 128/76 97 02/27/21 13:00 89 18 114/56 99 02/27/21 12:50 81 18 114/56 97 02/27/21 12:40 82 18 126/60 98 02/27/21 12:34 83 18 126/60 96 02/27/21 12:12 97.9 F 86 18 131/49 96 Intake and Output 02/27/21 02/27/21 02/27/21 06:59 14:59 22:59 Other: Weight 63.503 kg In general patient is alert and oriented x3 in no distress HEENT head normocephalic and atraumatic Neck is supple no JVD no goiter no lymphadenopathy no carotid bruit Chest examination is clear to auscultation no crackles no wheezing Cardiac exam reveals regular heart sounds S1 and S2 no gallops no murmurs Abdomen is soft nontender no organomegaly with normal bowel sounds Extremity exam reveals no edema no cyanosis or clubbing Neurological examination reveals no gross focal deficits Results CBC & Chem 7: 02/27/21 12:23 02/27/21 12:23 Labs: Abnormal Lab Results - Last 24 Hours (Table) 02/27/21 02/27/21 02/27/21 Range/Units 12:17 12:23 12:23 WBC 10.8 H (3.8-10.6) k/uL Neutrophils # 9.4 H (1.3-7.7) k/uL Lymphocytes # 0.6 L (1.0-4.8) k/uL Potassium 3.0 L (3.5-5.1) mmol/L Chloride 113 H (98-107) mmol/L Carbon Dioxide 17 L (22-30) mmol/L Creatinine 1.14 H (0.52-1.04) mg/dL Glucose 174 H (74-99) mg/dL POC Glucose (mg/dL) 174 H (75-99) mg/dL Calcium 8.3 L (8.4-10.2) mg/dL Magnesium 1.5 L (1.6-2.3) mg/dL Total Protein 5.7 L (6.3-8.2) g/dL Albumin 3.3 L (3.5-5.0) g/dL 02/27/21 Range/Units 19:23 WBC (3.8-10.6) k/uL Neutrophils # (1.3-7.7) k/uL Lymphocytes # (1.0-4.8) k/uL Potassium (3.5-5.1) mmol/L Chloride (98-107) mmol/L Carbon Dioxide (22-30) mmol/L Creatinine (0.52-1.04) mg/dL Glucose (74-99) mg/dL POC Glucose (mg/dL) 130 H (75-99) mg/dL Calcium (8.4-10.2) mg/dL Magnesium (1.6-2.3) mg/dL Total Protein (6.3-8.2) g/dL Albumin (3.5-5.0) g/dL Assessment and Plan Plan: Episodes of ventricular tachycardia, with syncope and loss of consciousness Underlying history of ischemic cardiomyopathy Hypokalemia and hypomagnesemia Acute kidney injury Underlying history of hypertension Underlying history of hyperlipidemia Underlying history of coronary artery disease with recent angioplasty and stent placement Patient was started on IV amiodarone in the emergency room She was admitted to intensive care unit Echocardiogram ordered Cardiology consultation and pulmonary consultation is requested
--- NOTE | 2021-02-28 10:12 | P.PN ---
Subjective Progress Note Date: 02/28/21 Valerie Contreras, he is a 75-year-old female who presented to [facility] after having a syncopal episode, patient has a known history of coronary artery disease she recently had cardiac catheterization with stent placement, she was told that she needs coronary artery bypass surgery, however surgeon was waiting for her cardiac function to improve. In the meanwhile patient had a life vest placed on. Patient stated that she felt lightheaded and then had a syncopal episode, apparently patient had a ventricular arrhythmia and her life vest shocked her, EMS were called patient initially was alert and oriented when EMS arrived however he had a second episode of unresponsiveness, and apparently her life vest shocked her again. Patient was brought in to [facility] emergency room, on arrival to emergency room she was alert and oriented 3 in no distress, she denied having any chest pain or shortness of breath, vital examination on presentation revealed a temperature of 97.9 pulse 86 respiration 18 blood pressure 131/49 pulse ox 96% on room air. Laboratory data revealed a white blood count of 10.8 hemoglobin 11.5 platelet count 381 sodium 139 potassium 3.0 chloride 113 CO2 17 BUN 15 creatinine 1.14 glucose 174 troponin level 0.0-4 BNP 4950 COVID-19 PCR was negative , chest x- ray done in the emergency room revealed no acute pulmonary process mild cardiomegaly , first EKG done in the emergency room revealed undetermined rhythm with right bundle branch block and T-wave abnormalities , repeat EKG revealed normal sinus rhythm with right bundle branch block and T-wave abnormality in the anterior and lateral . she was admitted to intensive care unit for further evaluation and treatment. On 02/28/2021 patient alert and oriented 3. Patient currently resting in the intensive care unit. She remains on IV amiodarone. Per cardiology plans for ICD placement. Patient reports she has had diarrhea for the past 6 days which could contribute to her electrolyte imbalance. Patient reports occasional nausea and vomiting. Will order stool for C. diff and stool culture. Continue electrolyte replacement. At this time patient denies chest pain or shortness breath. Patient denies any urinary burning or frequency Objective - Vital Signs Vital signs: Vital Signs Temp 97.7 F 02/28/21 04:00 Pulse 72 02/28/21 07:00 Resp 16 02/28/21 07:00 BP 125/66 02/28/21 07:00 Pulse Ox 94 L 02/28/21 07:00 Intake & Output 02/27/21 02/28/21 02/28/21 18:59 06:59 18:59 Intake Total 1510 10 Output Total 1565 250 Balance -55 -240 Weight 63.503 kg 71.1 kg Intake: IV 1110 10 0.9 KVO 10 10 Potassium Chloride 10 meq 100 In Water For Injection 1 100ml.bag @ 100 mls/hr IVPB Q1HR SPRING Rx#: [id number] Sodium Chloride 0.9% 1, 1000 000 ml @ 100 mls/hr IV . Q10H STA Rx#:[id number] Oral 400 Output: Urine 1565 250 Other: Voiding Method Indwelling Catheter - Exam In general patient is alert and oriented x3 in no distress HEENT head normocephalic and atraumatic Neck is supple no JVD no goiter no lymphadenopathy no carotid bruit Chest examination is clear to auscultation no crackles no wheezing Cardiac exam reveals regular heart sounds S1 and S2 no gallops no murmurs Abdomen is soft nontender no organomegaly with normal bowel sounds Extremity exam reveals no edema no cyanosis or clubbing Neurological examination reveals no gross focal deficits - Labs CBC & Chem 7: 02/28/21 04:48 02/28/21 04:48 Labs: Abnormal Lab Results - Last 24 Hours (Table) 02/27/21 02/27/21 02/27/21 Range/Units 12:17 12:23 12:23 WBC 10.8 H (3.8-10.6) k/uL RBC (3.80-5.40) m/uL Hgb (11.4-16.0) gm/dL Neutrophils # 9.4 H (1.3-7.7) k/uL Lymphocytes # 0.6 L (1.0-4.8) k/uL Potassium 3.0 L (3.5-5.1) mmol/L Chloride 113 H (98-107) mmol/L Carbon Dioxide 17 L (22-30) mmol/L Creatinine 1.14 H (0.52-1.04) mg/dL Glucose 174 H (74-99) mg/dL POC Glucose (mg/dL) 174 H (75-99) mg/dL Calcium 8.3 L (8.4-10.2) mg/dL Magnesium 1.5 L (1.6-2.3) mg/dL Total Protein 5.7 L (6.3-8.2) g/dL Albumin 3.3 L (3.5-5.0) g/dL 02/27/21 02/28/21 02/28/21 Range/Units 19:23 04:48 04:48 WBC 11.0 H (3.8-10.6) k/uL RBC 3.79 L (3.80-5.40) m/uL Hgb 11.2 L (11.4-16.0) gm/dL Neutrophils # 9.8 H (1.3-7.7) k/uL Lymphocytes # 0.6 L (1.0-4.8) k/uL Potassium (3.5-5.1) mmol/L Chloride 113 H (98-107) mmol/L Carbon Dioxide 17 L (22-30) mmol/L Creatinine (0.52-1.04) mg/dL Glucose (74-99) mg/dL POC Glucose (mg/dL) 130 H (75-99) mg/dL Calcium (8.4-10.2) mg/dL Magnesium (1.6-2.3) mg/dL Total Protein 5.9 L (6.3-8.2) g/dL Albumin 3.4 L (3.5-5.0) g/dL Assessment and Plan Plan: Episodes of ventricular tachycardia, with syncope and loss of consciousness Underlying history of ischemic cardiomyopathy. 2-D echo completed showing an EF of 25-30% Hypokalemia and hypomagnesemia Acute kidney injury Underlying history of hypertension Underlying history of hyperlipidemia Underlying history of coronary artery disease with recent angioplasty and stent placement Diarrhea. Stool for C. diff and stool culture ordered She remains on IV amiodarone Cardiology and critical care service is following Per cardiology plans for AICD placement Stool for C. diff and stool cultures ordered replace electrolytes per protocol
--- NOTE | 2021-02-28 13:52 | P.PN ---
Subjective Progress Note Date: 02/28/21 Principal diagnosis: Recurrent ventricular tachycardia This is a 75-year-old female with history of coronary artery disease, previous [place], previous stent placement 2 in [place], patient had a life vest placed recently while in [place], and stent placement in [place], apparently the patient has history of severe LV dysfunction, and the plan was to decide in the future whether the patient would require AICD placement. This will depend on her LV function improvement if any. I am not certain whether the patient was also being considered for CABG. Patient has been experiencing since early this morning intermittent episodes of lightheadedness and had 1 syncopal event. Kimberly ent had 1 defibrillation done by her life vest earlier this morning, and since then she had at least 5 further episodes. EMS arrived to the scene after her initial defibrillation. Patient was almost going into a syncopal episode, and she was noted to have ventricular tachycardia. Patient had a witnessed defibrillation done by the life vest when they were at the scene. On the monitor the patient had ventricular tachycardia and later on had multiple PVCs. Patient was loaded with 300 mg of amiodarone, and arrangements were made for her to be brought into the ER. Patient normally sees Dr. Nice on outpatient basis. And he will be seeing the patient in the ER. During my evaluation, the patient had a bit of nausea but no palpitations, no chest pain, no shortness of breath. EKG in the ER showed normal sinus rhythm rate of 81, no acute ischemic changes noted. Labs in the ER showed normal CBC. Normal pro time and INR. Low potassium of 3.0 bicarb is 17 BUN of 15 creatinine 1.14, BNP level was 4950 troponin 0.024. PCR for COVID-19 was negative. Chest x-ray showed no evidence of infiltrate and no evidence of pulmonary edema considering the patient is having intermittent episodes of ventricular tachycardia, I was asked to see the patient for admission to the ICU. I will accept the patient to be admitted to the ICU, and cardiology to see the patient in consultation Age and was reevaluated today on 02/28/2021, patient remains in the ICU, I saw her yesterday on consultation, patient had a new life vest placed yesterday, no further episodes of ventricular tachycardia since she was admitted to the ICU. Repeat echocardiogram showed poor LV function with ejection fraction of 25-50%. Patient remains on amiodarone at 0.5 mg her minutes. Her IV fluid to KVO. Patient is on room air and over/is 93%. She is in sinus rhythm, evaluated by cardiology, and she will be seen by Dr. Flores for possible ICD placement. Labs today were basically unremarkable including normal CBC and normal electrolytes normal renal profile Objective - Vital Signs Vital signs: Vital Signs Temp 97.7 F 02/28/21 04:00 Pulse 90 02/28/21 13:00 Resp 22 02/28/21 13:00 BP 139/104 02/28/21 13:00 Pulse Ox 90 L 02/28/21 13:00 Intake & Output 02/27/21 02/28/21 02/28/21 18:59 06:59 18:59 Intake Total 1510 40 Output Total 1565 800 Balance -55 -760 Weight 63.503 kg 71.1 kg Intake: IV 1110 40 0.9 KVO 10 40 Potassium Chloride 10 meq 100 In Water For Injection 1 100ml.bag @ 100 mls/hr IVPB Q1HR [facility] Rx#: [id number] Sodium Chloride 0.9% 1, 1000 000 ml @ 100 mls/hr IV . Q10H [facility] Rx#:[id number] Oral 400 Output: Urine 1565 800 Other: Voiding Method Indwelling Catheter Indwelling Catheter - Exam Physical Exam: Revealed a 75-year-old female in no distress, pleasant. On room air. Head: Atraumatic, normocephalic. HEENT:[Neck is supple.] [No neck masses.] [No thyromegaly.] [No JVD.] Chest: [Clear throughout, no crackles, no rhonchi, no wheezes.] Cardiac Exam: [Normal S1 and S2, no S3 gallop, no murmur.] Abdomen: [Soft, nontender, no megaly, no rebound, no guarding, normal bowel sounds.] Extremities: [No clubbing, no edema, no cyanosis.] Neurological Exam: [No focal neurologic deficit.] Alert and oriented 3. Psychiatric: Normal mood affect and normal mental status examination. Skin: No rashes. - Labs CBC & Chem 7: 02/28/21 04:48 02/28/21 04:48 Labs: Abnormal Lab Results - Last 24 Hours (Table) 02/27/21 02/28/2102/28/21 Range/Units 19:23 04:48 04:48 WBC 11.0 H (3.8-10.6) k/uL RBC 3.79 L (3.80-5.40) m/uL Hgb 11.2 L (11.4-16.0) gm/dL Neutrophils # 9.8 H (1.3-7.7) k/uL Lymphocytes # 0.6 L (1.0-4.8) k/uL Chloride 113 H (98-107) mmol/L Carbon Dioxide 17 L (22-30) mmol/L POC Glucose (mg/dL) 130 H (75-99) mg/dL Total Protein 5.9 L (6.3-8.2) g/dL Albumin 3.4 L (3.5-5.0) g/dL Assessment and Plan Assessment: Impression: Ischemic cardiomyopathy and poor LV function. Recurrent ventricular tachycardia Hypokalemia and hypomagnesemia, being treated as per protocol. History of underlying coronary artery disease. Acute kidney injury secondary to ventricular tachycardia and LV dysfunction Ischemic cardiomyopathy and LV dysfunction Recommendation: Continue amiodarone. Continue to monitor in the ICU. Continue to monitor and adjust electrolytes accordingly. Patient will be seen by Dr. Flores and possibly plan ICD placement. We will continue to follow while in the ICU. Time with Patient: Less than 30
[2021-02-28] MEDS: AMIODARONE 450 MG in DEXTROSE 5% IN WATER 250 ML IV SCH ×2 (18:23)
[2021-02-28] MEDS ORDERED: METOPROLOL SUCCINATE (ER) 25 MG TAB.ER.24H PO STA (19:22)
[2021-02-28] MEDS ORDERED: DEXTROSE 5% IN WATER 100 ML with AMIODARONE 150 MG IV ONE (19:45)
[2021-02-28] MEDS ORDERED: AMIODARONE 360 MG in DEXTROSE 5% IN WATER 200 ML IV ONE ×2 (20:00)
[2021-02-28 20:16] LABS: Magnesium 1.5 mg/dL (1.6-2.3); Potassium 3.4 mmol/L (3.5-5.1)
[2021-02-28] MEDS ORDERED: Magnesium Replacement Protocol 1 EACH MISC MISCELLANE PRN (20:20)
[2021-02-28] MEDS ORDERED: LIDOCAINE-D5W PMX 2G/250ML 8 MG/ML IV ONE (20:26)
[2021-02-28] MEDS ORDERED: LIDOCAINE 2% SYG (PF) 100 MG/5 ML IV ONE (20:29)
[2021-02-28] MEDS: MAGNESIUM SULFATE-D5W PMX 1 GM in DEXTROSE/WATER 1 100ML.BAG IVPB SCH ×2 (20:46→21:59)
[2021-02-28] MEDS: POTASSIUM CHLORIDE 10 MEQ in WATER FOR INJECTION 1 100ML.BAG IVPB SCH ×4 (20:46→23:56)
[2021-02-28] MEDS: LIDOCAINE-D5W PMX 2G/250ML 2,000 MG in DEXTROSE/WATER 1 250ML.BAG IV SCH ×2 (20:47→23:57)
[2021-02-28] MEDS: [UNRECOGNIZED DRUG - OTHER] RIGHT EYE SCH (21:07)
[2021-02-28] MEDS: SODIUM CHLORIDE 5% BOTH EYES PRN (21:07)
[2021-02-28] MEDS: COMBIGAN LEFT EYE SCH (21:07)
[2021-02-28] MEDS: PRAVASTATIN SODIUM 80 MG TAB PO SCH (22:46)
[2021-02-28] MEDS ORDERED: FUROSEMIDE 10 MG/ML 4 ML VIAL ONE (23:29)
[2021-02-28] MEDS ORDERED: FUROSEMIDE 10 MG/ML 4 ML VIAL IV STA (23:38)
--- NOTE | 2021-02-28 23:56 | XR ---
EXAMINATION TYPE: XR chest 1V portable DATE OF EXAM: 02/28/2021 COMPARISON: NONE HISTORY: Short of breath TECHNIQUE: Single view FINDINGS: There is right central venous catheter with tip in the right atrium. Heart is slightly enla rged. There is pulmonary vascular congestion. There is airspace infiltrates in both upper lobes. No d efinite pleural effusion seen. IMPRESSION: New pulmonary infiltrates and pulmonary vascular congestion compared to yesterday and con sistent with acute heart failure and bilateral pneumonia.
[2021-03-01] MEDS ORDERED: SODIUM CHLORIDE 0.9% 1,000 ML IV SCH ×2
[2021-03-01] MEDS: AMIODARONE 450 MG in DEXTROSE 5% IN WATER 250 ML IV SCH ×4 (01:40→17:24)
[2021-03-01] MEDS ORDERED: FUROSEMIDE 10 MG/ML 2 ML VIAL IV ONE (06:00)
[2021-03-01] MEDS ORDERED: FUROSEMIDE 10 MG/ML 4 ML VIAL IV ONE (06:00)
[2021-03-01] MEDS ORDERED: ONDANSETRON 4 MG/2 ML VIAL ONE (07:35)
[2021-03-01] MEDS ORDERED: ETOMIDATE 2 MG/ML 10 ML VIAL ONE (07:35)
[2021-03-01] MEDS ORDERED: fentaNYL (PF) 50 MCG/ML 2 ML AMP ONE (07:35)
[2021-03-01] MEDS ORDERED: ePHEDrine SULFATE/0.9% NACL/PF 50 MG/5 ML SYRINGE IV ONE (07:35)
[2021-03-01] MEDS ORDERED: LIDOCAINE 1% INJ 10MG/ML (20 ML MDV) ONE ×3 (07:35→08:23)
[2021-03-01] MEDS ORDERED: SUCCINYLCHOLINE CHLORIDE 100 MG/5 ML SYR IV ONE (07:35)
[2021-03-01] MEDS ORDERED: ROCURONIUM 10 MG/ML (5 ML VIAL) IV ONE (07:35)
[2021-03-01] MEDS ORDERED: DEXAMETHASONE SOD PHOSPHATE 10 MG/ML 1 ML VIAL ONE (07:35)
[2021-03-01] MEDS ORDERED: SODIUM CHLORIDE 0.9% 500 ML 500 ML IV ONE ×2 (07:35→15:43)
[2021-03-01] MEDS ORDERED: GLYCOPYRROLATE 0.2 MG/ML 2 ML VIAL ONE (07:35)
[2021-03-01] MEDS ORDERED: NEOSTIGMINE 1 MG/ML 10 ML VIAL ONE (07:35)
[2021-03-01] MEDS: ceFAZolin 1 GM in SODIUM CHLORIDE 0.9% 250 ML IRRIGATION PRN ×3 (07:52→08:05)
[2021-03-01] MEDS ORDERED: IOPAMIDOL-370 50ML BTL INJ ONE (07:59)
[2021-03-01] MEDS ORDERED: LIDOCAINE 1% INJ 10MG/ML (20 ML MDV) SQ ONE (08:19)
--- NOTE | 2021-03-01 08:24 | XR ---
EXAMINATION TYPE: XR chest 1V portable DATE OF EXAM: 03/01/2021 COMPARISON: 02/28/2021 INDICATION: Short of breath TECHNIQUE: Single frontal view of the chest is obtained. FINDINGS: The heart size is normal. The pulmonary vasculature is normal. Some mild upper perihilar infiltrates may be present. Multiple electronic devices overlie the chest. IMPRESSION: 1. Improving perihilar infiltrates. Residual remains and continued follow-up is recommended.
[2021-03-01] MEDS ORDERED: ACETAMINOPHEN TAB 325 MG TAB PO PRN (08:49)
[2021-03-01] MEDS ORDERED: METOPROLOL SUCCINATE (ER) 50 MG TAB.ER.24H PO SCH (09:00)
--- NOTE | 2021-03-01 09:01 | P.CARDCATH ---
Date of Procedure: 03/01/21 Preoperative Diagnosis: Recurrent V. tach, V. fib, ischemic cardio myopathy Postoperative Diagnosis: The same Procedure(s) Performed: Axillary venography and ICD implantation Description of Procedure: HISTORY: This is a 75-year-old female with history of ischemic cardiomyopathy status post stent placement of the LAD who was admitted to the hospital with shock from her LifeVest. Patient was having diarrhea and also found to be slightly hypokalemic and hypomagnesemic. This was corrected but patient still having recurrent V. tach. She was treated with IV amiodarone lidocaine and beta blockers. She is also seemed to be in CHF. Received IV Lasix and seemed to be diuresing. An AICD implantation is requested. CONSENT:I have discussed the risks, benefits and alternative therapies for the above-mentioned procedure and for both sedation/analgesia as well as necessary blood product administration, if indicated, as they pertain to this patient. The patient has indicated understanding and acceptance of the risks and proc edures discussed. PROCEDURE: Patient was brought to the lab in a fasting state. Patient was prepped and draped in the usual fashion. Patient was given sedation and anesthesia by department of anesthesia. The skin below the left clavicle was infiltrated with lidocaine. An incision was made parallel to deltopectoral groove was deepened until the pectoral fascia was exposed. A pocket was created by blunt dissection and cautery. Axillary venography was performed to delineate the course of the axillary vein. A single venous stick was performed into extrathoracic portion of the axillary vein and a single sheath was advanced over the guidewires and left in subclavian vein. Conscious Sedation: As for anesthesia Duration 27 minutes LEADS: VENTRICULAR: This is manufactured by [employer]. The model number is [id number] and the serial number is [id number]. The ventricular lead is maneuvered l with help of a straight and curved stylets into the left ventricle apical region. Satisfactory position was obtained and threshold measurements were made. The atrial lead was then maneuvered into the right atrial appendage. And thresholds were obtained. THRESHOLDS: VENTRICLE: The minimal patient threshold is 0.75 V at a pulse width of 0.4 with impedance of 456 ohms. R-wave: 16.5 The leads and pulse generator remained in the pocket after it was washed with antibiotics. Pocket was closed in the usual fashion. The fasc ia was closed with 2-0 Prolene ,the subcutaneous tissue was closed with 3-0 Prolene and the skin was closed with 4-0 Prolene. PROGRAMMING: Bradycardia programming: MODE: VVI RATE: 40 OUTPUT: Ventricle: 3.5 Tachycardia Programming : VF zone was programmed to a rate of 2 15 bpm. Initial detect was programmed 30 out of 40 and the reader was programmed to 12-16. The VT zone is programmed to a rate of 171 with initial detect of 16 beats and a direct of 12. The monitor zone is programmed to 1 50 bpm. Therapy for V. fib is programmed to 35 J 6 with the 2 shocks with reversed polarity. The VT zone is programmed to burst pacing followed by cardioversion at 20 J followed by 30 J 3 FINAL IMPRESSION: #1. Axillary venography #2. Single-chamber AICD implantation #3. DFT testing is deferred at this time as patient is in CHF COMPLICATIONS:None PLAN: Continue current medical therapy with IV amiodarone and lidocaine. Correct hypokalemia and hypomagnesemia. Switched to by mouth medications. May consider cardiac cath to rule out any progression of ischemic heart disease. When patient is stable will consider DFT testing.
--- NOTE | 2021-03-01 09:40 | PN ---
PROGRESS NOTE Mrs. Contreras is a 75-year-old female who has a history of coronary disease, history of ischemic cardiomyopathy, status post stenting of the LAD in a setting of myocardial infarction in [place] in November, who had severe ischemic cardiomyopathy and a LifeVest. Had a discharge from the device. Was scheduled to undergo ICD implantation today. During the night, she had an episode of recurrent ventricular tachycardia requiring recurrent discharge from the LifeVest. She is in sinus mechanism at this time. She is on the BiPAP. She was started on lidocaine. She denies any chest discomfort at this time. Her breathing is stable. She denies any dizziness. She had no anginal pain. She continues on the IV amiodarone and IV lidocaine. She is on aspirin, she is on Zestril 20 mg daily, metoprolol succinate 25 mg twice a day, spironolactone 25 mg daily and Brilinta 90 mg twice a day. PHYSICAL EXAMINATION: Blood pressure 117/60 with a heart rate in the 70s. Lungs: Mild decrease in breath sounds at bases. No wheezes. Heart regular rate and rhythm, S1, S2. No S3. No rub appreciated. ABDOMEN: Soft, nontender. EXTREMITIES: No edema. LAB DATA: BUN and creatinine of 8 and 0.73, potassium 4.2. Hemoglobin is 11.2. The chest x-ray shows mild congestion. Her echocardiogram reveals severe cardiomyopathy. IMPRESSION: 1. Recurrent ventricular tachycardia in a patient with known history of ischemic cardiomyopathy, she is scheduled to undergo ICD implantation today. There is no evidence of acute ischemic event. First troponin has been negative. 2. Status post stenting of the LAD in November of this year in [place]. 3. Prior history of colon cancer, stable. 4. Hypertension. 5. Hyperlipidemia. RECOMMENDATION: 1. From the cardiac standpoint, we will continue the IV lidocaine, IV amiodarone. 2. For now, I will increase the dose of her beta chris. We will proceed with the ICD implantation. I will start her on oral dose of diuretics. Follow her renal function. 3. Depending on her progress, we will make a decision regarding the need to undergo repeat coronary angiography to re-evaluate the LAD territory. MMODL / IJN: [id number] /
[2021-03-01 10:17] LABS: ABG Base Excess -1.9 mmol/L; ABG HCO3 24 mmol/L (21-25); ABG Oxygen Saturation 93.2 % (94-97); ABG PCO2 44 mmHg (35-45); ABG PH 7.34 (7.35-7.45); ABG PO2 74 mmHg (83-108); ABG TCO2 25 mmol/L (19-24); Allen Test Performed? Yes
[2021-03-01] MEDS: FUROSEMIDE 10 MG/ML 4 ML VIAL IV SCH ×2 (12:50→16:23)
[2021-03-01 13:28] LABS: INR 1.1 (<1.2); Partial Thromboplastin Time 24.1 sec (22.0-30.0); Prothrombin Time 11.7 sec (9.0-12.0)
[2021-03-01 13:32] LABS: Albumin 3.1 g/dL (3.5-5.0); Calcium 8.1 mg/dL (8.4-10.2); Potassium 3.7 mmol/L (3.5-5.1); Total Bilirubin 0.3 mg/dL (0.2-1.3); Total Protein 5.6 g/dL (6.3-8.2)
[2021-03-01 13:38] LABS: Basophils % (A) 0 %; Eosinophils % (A) 0 %; HCT 34.4 % (34.0-46.0); HGB 11.3 gm/dL (11.4-16.0); Lymphocytes # (A) 0.3 k/uL (1.0-4.8); Lymphocytes % (A) 2 %; MCH 29.5 pg (25.0-35.0); MCHC 32.8 g/dL (31.0-37.0); MCV 89.8 fL (80.0-100.0); Mean Platelet Volume 8.2; Monocytes # (A) 0.3 k/uL (0-1.0); Monocytes % (A) 2 %; Neutrophils # (A) 14.8 k/uL (1.3-7.7); Neutrophils % (A) 96 %; Platelet Count 337 k/uL (150-450); RBC 3.83 m/uL (3.80-5.40); RDW 15.4 % (11.5-15.5); WBC 15.4 k/uL (3.8-10.6)
--- NOTE | 2021-03-01 13:48 | XR ---
EXAMINATION TYPE: XR chest 1V portable DATE OF EXAM: 03/01/2021 COMPARISON: 03/01/2021 INDICATION: OGT placement TECHNIQUE: Single frontal view of the chest is obtained. FINDINGS: The heart size is normal. The pulmonary vasculature is normal. There is a small left pleural effusion. Mild left and right perihilar infiltrates remain present. So me improvement may be present Endotracheal tube tip is above the dimitri. Pacemaker overlies the left chest. Nasogastric tube transv erses the thorax with the tip in the proximal left upper quadrant. This could be advanced slightly. R ight-sided port is present with the tip in the right atrium. No pneumothorax is evident. IMPRESSION: 1. Suprahilar infiltrates may have some improvement. 2. Lines and catheters discussed above. The nasogastric tube could be advanced approximately 4 cm. 3. Small left pleural effusion
[2021-03-01 13:58] VITALS: BMI 29.3
[2021-03-01] MEDS: lisinopriL 20 MG TAB PO SCH (14:38)
[2021-03-01] MEDS: COMBIGAN LEFT EYE SCH ×2 (14:38→22:14)
[2021-03-01] MEDS: [UNRECOGNIZED DRUG - OTHER] RIGHT EYE SCH ×2 (14:38→22:15)
--- NOTE | 2021-03-01 14:43 | P.PN ---
Subjective Progress Note Date: 03/01/21 Principal diagnosis: Acute hypoxic respiratory failure secondary to acute on chronic systolic congestive heart failure This is a 75-year-old female with history of coronary artery disease, previous [place], previous stent placement 2 in [place], patient had a life vest placed recently while in [place], and stent placement in [place], apparently the patient has history of severe LV dysfunction, and the plan was to decide in the future whether the patient would require AICD placement. This will depend on her LV function improvement if any. I am not certain whether the patient was also being considered for CABG. Patient has been experiencing since early this morning intermittent episodes of lightheadedness and had 1 syncopal event. Patient had 1 defibrillation done by her life vest earlier this morning, and since then she had at least 5 further episodes. EMS arrived to the scene after her initial defibrillation. Patient was almost going into a syncopal episode, and she was noted to have ventricular tachycardia. Patient had a witnessed defibrillation done by the life vest when they were at the scene. On the monitor the patient had ventricular tachycardia and later on had multiple PVCs. Patient was loaded with 300 mg of amiodarone, and arrangements were made for her to be brought into the ER. Patient normally sees Dr. Nice on outpatient basis. And he will be seeing the patient in the ER. During my evaluation, the patient had a bit of nausea but no palpitations, no chest pain, no shortness of breath. EKG in the ER showed normal sinus rhythm rate of 81, no acute ischemic changes noted. Labs in the ER showed normal CBC. Normal pro time and INR. Low potassium of 3.0 bicarb is 17 BUN of 15 creatinine 1.14, BNP level was 4950 troponin 0.024. PCR for COVID-19 was negative. Chest x-ray showed no evidence of infiltrate and no evidence of pulmonary edema considering the patient is having intermittent episodes of ventricular tachycardia, I was asked to see the patient for admission to the ICU. I will accept the patient to be admitted to the ICU, and cardiology to see the patient in consultation Age and was reevaluated today on 02/28/2021, patient remains in the ICU, I saw her yesterday on consultation, patient had a new life vest placed yesterday, no further episodes of ventricular tachycardia since she was admitted to the ICU. Repeat echocardiogram showed poor LV function with ejection fraction of 25-50%. Patient remains on amiodarone at 0.5 mg her minutes. Her IV fluid to KVO. Patient is on room air and over/is 93%. She is in sinus rhythm, evaluated by cardiology, and she will be seen by Dr. Flores for possible ICD placement. Labs today were basically unremarkable including normal CBC and normal electrolytes normal renal profile Patient was reevaluated today on 03/01/2021, patient underwent ICD placement today, however she came back from the lab support tech on mechanical ventilation. Apparently the patient went on to develop acute pulmonary edema worsening hypoxemia and required intubation while in the lab support tech, back to the ICU and I was asked to see her again after arrival to the ICU. Chest x-ray is clearly showing evidence of pulmonary edema. Hence Lasix was ordered, patient is hemodynamically stable, not requiring any inotropes or process, but she remains on amiodarone. Actually last night the patient's pulmonary status was deteriorating and she required Lasix at night. Presently the patient is on assist control rate of 14, volume 400 FiO2 100% PEEP of 5 and a increase it up to 8. ABG showed a pO2 of 74 pCO2 44 pH of 7.36. Patient is on lidocaine and amiodarone and propofol. This a.m., patient had ventricular tachycardia, and went on to develop pulmonary edema. Apparently she had also an episode of ventricular tachycardia last night when she was in the unit. And she was defibrillated 6 times. Labs today were reviewed, she had a relatively normal electrolytes and normal renal profile. Lips count is 15.4 hemoglobin is 11.3. PTT is 24.1. Potassium is 3.7 Objective - Vital Signs Vital signs: Vital Signs Temp 97 F L 03/01/21 12:00 Pulse 56 L 03/01/21 13:30 Resp 16 03/01/21 13:30 BP 99/59 03/01/21 10:00 Pulse Ox 99 03/01/21 13:30 Intake & Output 02/28/21 03/01/21 03/01/21 18:59 06:59 18:59 Intake Total 120 53.75 525 Output Total 1610 1210 980 Balance -1490 -1156.25 -455 Weight 68.1 kg 68.1 kg Intake: IV 120 30 525 0.9 KVO 120 30 Intake, IV Titration 23.75 Amount Lidocaine-D5w Pmx 2G/ 23.75 250Ml 2,000 mg In Dextrose/Water 1 250ml. bag @ 1 MG/MIN 7.5 mls/hr IV .Q24H [facility] Rx#: [id number] Output: Urine 1610 1210 980 Other: Voiding Method Indwelling Catheter Indwelling Catheter ABP, PAP, CO, CI - Last Documented Arterial Blood Pressure 89/47 - Exam Physical Exam: Revealed a 75-year-old female intubated, mechanically ventilated, on assist control mode of mechanical ventilation, and she is also on propofol. Head: Atraumatic, normocephalic. Endotracheal tube is intact. Orogastric tube is not placed HEENT:[Neck is supple.] [No neck masses.] [No thyromegaly.] [No JVD.] Chest: [Symmetrical chest expansion, crackles at the bases, no rhonchi and no wheezes. Cardiac Exam: [Distant S1 and S2, no S3 gallop, 2/6 systolic murmur thought the precordium..] Abdomen: [Soft, nontender, no megaly, no rebound, no guarding, normal bowel sounds.] Extremities: [No clubbing, no edema, no cyanosis.] Neurological Exam: Could not assess, patient is sedated. On propofol Psychiatric: Could not assess Skin: No rashes. - Labs CBC & Chem 7: 03/01/21 12:55 03/01/21 12:55 Labs: Abnormal Lab Results - Last 24 Hours (Table) 02/28/21 03/01/21 03/01/21 Range/Units 17:03 10:07 12:55 WBC 15.4 H (3.8-10.6) k/uL Hgb 11.3 L (11.4-16.0) gm/dL Neutrophils # 14.8 H (1.3-7.7) k/uL Lymphocytes # 0.3 L (1.0-4.8) k/uL ABG pH 7.34 L (7.35-7.45) ABG pO2 74 L (83-108) mmHg ABG Total CO2 25 H (19-24) mmol/L ABG O2 Saturation 93.2 L (94-97) % Sodium (137-145) mmol/L Potassium 3.4 L (3.5-5.1) mmol/L Glucose (74-99) mg/dL Calcium (8.4-10.2) mg/dL Magnesium 1.5 L (1.6-2.3) mg/dL Total Protein (6.3-8.2) g/dL Albumin (3.5-5.0) g/dL 03/01/21 Range/Units 12:55 WBC (3.8-10.6) k/uL Hgb (11.4-16.0) gm/dL Neutrophils # (1.3-7.7) k/uL Lymphocytes # (1.0-4.8) k/uL ABG pH (7.35-7.45) ABG pO2 (83-108) mmHg ABG Total CO2 (19-24) mmol/L ABG O2 Saturation (94-97) % Sodium 134 L (137-145) mmol/L Potassium (3.5-5.1) mmol/L Glucose 147 H (74-99) mg/dL Calcium 8.1 L (8.4-10.2) mg/dL Magnesium (1.6-2.3) mg/dL Total Protein 5.6 L (6.3-8.2) g/dL Albumin 3.1 L (3.5-5.0) g/dL Microbiology - Last 24 Hours (Table) 02/28/21 12:23 Stool Culture - Preliminary Stool Assessment and Plan Assessment: Impression: Acute hypoxic respiratory failure secondary to acute systolic congestive heart failure and chronic ischemic LV dysfunction requiring intubation and mechanical ventilation. Status post ICD placement for recurrent ventricular tachycardia Ischemic cardiomyopathy and poor LV function. Recurrent ventricular tachycardia Hypokalemia and hypomagnesemia, being treated as per protocol. History of underlying coronary artery disease. Acute kidney injury secondary to ventricular tachycardia and LV dysfunction, improving. Ischemic cardiomyopathy and LV dysfunction Recommendation: Presently on 100 percent FiO2, PEEP at at 8 tidal volume 400 assist control rate is 16. Continue ventilatory support. Adjust ventilatory settings based on the next ABG. Continue amiodarone. Continue lidocaine drip as per cardiology. Continue to monitor in the ICU. Nutritional support/enteral feeding. Arterial line placement for hemodynamic monitoring. Continue Lasix and assess oxygenation as well as response to diuretics. Continue to monitor and adjust electrolytes accordingly. Discussed her condition with her daughter and her at bedside. Made aware that her prognosis is guarded. We'll continue to follow. Critical care time is over 30 minutes. Not including time spent on procedures. Time with Patient: Greater than 30
[2021-03-01] MEDS: POTASSIUM CHLORIDE 10 MEQ in WATER FOR INJECTION 1 100ML.BAG IVPB SCH ×2 (15:06→16:22)
[2021-03-01] MEDS: SPIRONOLACTONE 25 MG TAB PO SCH (15:07)
[2021-03-01] MEDS: MAGNESIUM SULFATE-D5W PMX 1 GM in DEXTROSE/WATER 1 100ML.BAG IVPB SCH ×2 (15:07→16:23)
[2021-03-01] MEDS: TICAGRELOR 90 MG TAB PO SCH ×2 (17:23→22:16)
[2021-03-01] MEDS: NOREPINEPHRINE 4 MG in SODIUM CHLORIDE 0.9% 250 ML IV SCH ×2 (17:24→17:58)
[2021-03-01] MEDS: ASPIRIN 81 MG PO SCH (17:24)
[2021-03-01] MEDS ORDERED: FUROSEMIDE 20 MG TAB PO SCH (18:00)
[2021-03-01] MEDS: METOPROLOL TARTRATE 25 MG TAB PO SCH (22:07)
[2021-03-01] MEDS: SODIUM CHLORIDE 5% BOTH EYES PRN (22:14)
[2021-03-01] MEDS: PRAVASTATIN SODIUM 80 MG TAB PO SCH (22:17)
[2021-03-01 22:44] LABS: ABG Base Excess -2.3 mmol/L; ABG HCO3 22 mmol/L (21-25); ABG Oxygen Saturation 94.5 % (94-97); ABG PCO2 32 mmHg (35-45); ABG PH 7.44 (7.35-7.45); ABG PO2 72 mmHg (83-108); ABG TCO2 23 mmol/L (19-24)
[2021-03-01 23:00] LABS: Allen Test Performed? no
--- NOTE | 2021-03-01 23:33 | PCN ---
PROCEDURE NOTE PROCEDURE IN DETAIL: Placement of the left radial arterial line. PREOPERATIVE DIAGNOSIS: Acute hypoxic respiratory failure secondary to pulmonary edema. POSTOPERATIVE DIAGNOSIS: Acute hypoxic respiratory failure secondary to pulmonary edema. ANESTHESIA: Used none deployed. PROCEDURE: The left wrist was prepared in a sterile fashion. Drapes were applied. The left radial artery was palpated, cannulated easily and a guidewire was placed. A Cook catheter was inserted over the guidewire, and the guidewire was removed. Good blood flow, good waveform noted, line was secured using 3.0 silk sutures. Sterile dressing applied. No complications. MMODL / IJN: [id number] /
[2021-03-02] MEDS: FUROSEMIDE 10 MG/ML 4 ML VIAL IV SCH ×3 (01:14→23:28)
[2021-03-02] MEDS: CHLORHEXIDINE GLUCONATE 15 ML CUP MUCOUS MEM SCH ×2 (01:18→07:58)
[2021-03-02] MEDS: LIDOCAINE-D5W PMX 2G/250ML 2,000 MG in DEXTROSE/WATER 1 250ML.BAG IV SCH (02:08)
[2021-03-02 06:01] LABS: Basophils % (A) 0 %; Eosinophils # (A) 0.1 k/uL (0-0.7); Eosinophils % (A) 1 %; HCT 32.5 % (34.0-46.0); HGB 10.5 gm/dL (11.4-16.0); Lymphocytes # (A) 0.4 k/uL (1.0-4.8); Lymphocytes % (A) 3 %; MCH 29.1 pg (25.0-35.0); MCHC 32.4 g/dL (31.0-37.0); MCV 89.7 fL (80.0-100.0); Mean Platelet Volume 8.4; Monocytes # (A) 0.7 k/uL (0-1.0); Monocytes % (A) 4 %; Neutrophils # (A) 15.6 k/uL (1.3-7.7); Neutrophils % (A) 92 %; Platelet Count 372 k/uL (150-450); RBC 3.62 m/uL (3.80-5.40); RDW 15.5 % (11.5-15.5); WBC 16.9 k/uL (3.8-10.6)
[2021-03-02 06:13] LABS: Albumin 3.3 g/dL (3.5-5.0); Calcium 8.1 mg/dL (8.4-10.2); Magnesium 2.4 mg/dL (1.6-2.3); Potassium 3.6 mmol/L (3.5-5.1); Total Bilirubin 0.3 mg/dL (0.2-1.3)
[2021-03-02] MEDS ORDERED: POTASSIUM CHLORIDE ER 20 MEQ TAB.ER PO SCH ×2 (08:00→16:30)
[2021-03-02] MEDS: COMBIGAN LEFT EYE SCH ×2 (08:56→22:00)
--- NOTE | 2021-03-02 09:06 | PN ---
PROGRESS NOTE Mrs. Contreras is a 75-year-old female with known history of severe ischemic cardiomyopathy status post myocardial infarction in November and stenting of the LAD. She presented with nausea and diarrhea and subsequently had a discharge from her LifeVest and had recurrent discharges about 36 hours ago. She underwent placement of an ICD yesterday and was intubated electively prior to the procedure. She was extubated last night. She is awake, alert this morning. She continued on IV amiodarone and IV lidocaine. She is also on a low dose of norepinephrine. Her urine output is stable. She has no chest discomfort. She had no further episode of ventricular tachyarrhythmia. She continues to be on the IV amiodarone, aspirin once a day, furosemide 40 mg IV q.8 hours, Zestril 20 mg daily, metoprolol tartrate 25 mg twice a day, pravastatin 80 mg daily, Aldactone 25 mg daily, Brilinta 90 mg twice a day. PHYSICAL EXAMINATION: Blood pressure running in the one teens to 120s with a heart rate in 60s. Lungs no rales appreciated. HEART: Regular rate and rhythm S1, S2. No S3. No rub. ABDOMEN: Soft, nontender. EXTREMITIES: No edema. LAB DATA: Hemoglobin of 10.5, white blood cell of 16.9. Her BUN and creatinine are 16 and 1.2. IMPRESSION: 1. Recurrent ventricular tachycardia with shocks from her LifeVest with severe ischemic cardiomyopathy. 2. Status post ICD implantation. 3. Respiratory failure with fluid overload improved. 4. History of coronary artery disease. 5. History of colon CA, stable. 6. Hypokalemia, corrected. 7. Hypomagnesemia, corrected. RECOMMENDATION: From the cardiac standpoint, I will stop the IV amiodarone as well as the IV lidocaine. I will switch her to oral amiodarone. We will continue on her beta chris and MANN inhibitor. Follow her renal function. I will decrease her diuretic, increase her level of activity and depending her progress further recommendations will be made. MMODL / IJN: [id number] /
[2021-03-02] MEDS: lisinopriL 10 MG TAB PO SCH ×2 (09:20→22:00)
[2021-03-02] MEDS: SPIRONOLACTONE 25 MG TAB PO SCH (09:20)
[2021-03-02] MEDS: METOPROLOL TARTRATE 25 MG TAB PO SCH ×2 (09:21→22:00)
[2021-03-02] MEDS: ASPIRIN 81 MG PO SCH (09:21)
[2021-03-02] MEDS: TICAGRELOR 90 MG TAB PO SCH ×2 (09:22→22:00)
[2021-03-02] MEDS: AMIODARONE 200 MG TAB PO SCH ×2 (09:49→22:00)
--- NOTE | 2021-03-02 09:58 | XR ---
EXAMINATION TYPE: XR chest 1V portable DATE OF EXAM: 03/02/2021 CLINICAL HISTORY: Difficulty breathing progress study. TECHNIQUE: Single AP portable upright view of the chest is obtained. COMPARISON: Chest x-ray from one day earlier and older studies. FINDINGS: Interval extubation with removal of endotracheal and orogastric tubes. Stable right international exchange coordinator al jugular Mediport catheter. Persistent mild cardiomegaly with atherosclerotic aorta and single lead pacemaker/defibrillator. Mining Engineering Technologist catrina parenchymal changes redemonstrated. Persistent left basilar opacity. Improved aeration suprahilar region. Cholecystectomy clips are redemonstrated. Osseous structures are intact. Left supraclavicula r surgical clips again seen. IMPRESSION: Interval extubation. Continued improvement in suprahilar opacities. Persistent cardiomega ly with small left pleural effusion and associated left basilar compressive atelectasis.
--- NOTE | 2021-03-02 10:08 | P.PN ---
Subjective Progress Note Date: 03/01/21 Valerie Contreras, he is a 75-year-old female who presented to [facility] after having a syncopal episode, patient has a known history of coronary artery disease she recently had cardiac catheterization with stent placement, she was told that she needs coronary artery bypass surgery, however surgeon was waiting for her cardiac function to improve. In the meanwhile patient had a life vest placed on. Patient stated that she felt lightheaded and then had a syncopal episode, apparently patient had a ventricular arrhythmia and her life vest shocked her, EMS were called patient initially was alert and oriented when EMS arrived however he had a second episode of unresponsiveness, and apparently her life vest shocked her again. Patient was brought in to [facility] emergency room, on arrival to emergency room she was alert and oriented 3 in no distress, she denied having any chest pain or shortness of breath, vital examination on presentation revealed a temperature of 97.9 pulse 86 respiration 18 blood pressure 131/49 pulse ox 96% on room air. Laboratory data revealed a white blood count of 10.8 hemoglobin 11.5 platelet count 381 sodium 139 potassium 3.0 chloride 113 CO2 17 BUN 15 creatinine 1.14 glucose 174 troponin level 0.0-4 BNP 4950 COVID-19 PCR was negative , chest x- ray done in the emergency room revealed no acute pulmonary process mild cardiomegaly , first EKG done in the emergency room revealed undetermined rhythm with right bundle branch block and T-wave abnormalities , repeat EKG revealed normal sinus rhythm with right bundle branch block and T-wave abnormality in the anterior and lateral . she was admitted to intensive care unit for further evaluation and treatment. On 02/28/2021 patient alert and oriented 3. Patient currently resting in the intensive care unit. She remains on IV amiodarone. Per cardiology plans for ICD placement. Patient reports she has had diarrhea for the past 6 days which could contribute to her electrolyte imbalance. Patient reports occasional nausea and vomiting. Will order stool for C. diff and stool culture. Continue electrolyte replacement. At this time patient denies chest pain or shortness breath. Patient denies any urinary burning or frequency On 03/01/2021 status post AICD placement patient currently on mechanical ventilation resting comfortably in intensive care unit. Cardiology and pulmonary services following. Objective - Vital Signs Vital signs: Vital Signs Temp 97 F L 03/01/21 12:00 Pulse 54 L 03/01/21 19:00 Resp 16 03/01/21 19:00 BP 99/59 03/01/21 10:00 Pulse Ox 99 03/01/21 19:00 Intake & Output 03/01/21 03/01/21 03/02/21 06:59 18:59 06:59 Intake Total 53.75 1580.596 10 Output Total 1210 1140 30 Balance -1156.25 440.596 -20 Weight 68.1 kg 68.1 kg Intake: IV 30 1025 10 0.9 KVO 30 10 Sodium Chloride 0.9% 500 500 ml 500 ml @ 999 mls/hr IV .Q31M [facility] Rx#:[id number] Intake, IV Titration 23.75 555.596 Amount Amiodarone 450 mg In 250 Dextrose 5% in Water 250 ml @ 0.5 MG/MIN 16.667 mls/hr IV .Q15H [facility] Rx#: [id number] Lidocaine-D5w Pmx 2G/ 23.75 250Ml 2,000 mg In Dextrose/Water 1 250ml. bag @ 1 MG/MIN 7.5 mls/hr IV .Q24H [facility] Rx#: [id number] Magnesium Sulfate-D5w Pmx 100 1 gm In Dextrose/Water 1 100ml.bag @ 100 mls/hr IVPB Q1H [facility] Rx#: [id number] Norepinephrine 4 mg In 2.595 Sodium Chloride 0.9% 250 ml @ 0.05 MCG/KG/MIN 12. 973 mls/hr IV .[id number] [facility] Rx#:[id number] Potassium Chloride 10 meq 100 In Water For Injection 1 100ml.bag @ 100 mls/hr IVPB Q1H [facility] Rx#: [id number] propofoL 1,000 mg In 103.001 Empty Bag 1 bag @ Titrate IV .Q0M [facility] Rx#: [id number] Output: Urine 1210 1140 30 Other: Voiding Method Indwelling Catheter Indwelling Catheter ABP, PAP, CO, CI - Last Documented Arterial Blood Pressure 97/53 - Exam In general patient is alert and oriented x3 in no distress HEENT head normocephalic and atraumatic Neck is supple no JVD no goiter no lymphadenopathy no carotid bruit Chest examination is clear to auscultation no crackles no wheezing Cardiac exam reveals regular heart sounds S1 and S2 no gallops no murmurs Abdomen is soft nontender no organomegaly with normal bowel sounds Extremity exam reveals no edema no cyanosis or clubbing Neurological examination reveals no gross focal deficits - Labs CBC & Chem 7: 03/02/21 05:50 03/02/21 05:50 Labs: Abnormal Lab Results - Last 24 Hours (Table) 02/28/21 03/01/21 03/01/21 Range/Units 17:03 10:07 12:55 WBC 15.4 H (3.8-10.6) k/uL Hgb 11.3 L (11.4-16.0) gm/dL Neutrophils # 14.8 H (1.3-7.7) k/uL Lymphocytes # 0.3 L (1.0-4.8) k/uL ABG pH 7.34 L (7.35-7.45) ABG pO2 74 L (83-108) mmHg ABG Total CO2 25 H (19-24) mmol/L ABG O2 Saturation 93.2 L (94-97) % Sodium (137-145) mmol/L Potassium 3.4 L (3.5-5.1) mmol/L Glucose (74-99) mg/dL Calcium (8.4-10.2) mg/dL Magnesium 1.5 L (1.6-2.3) mg/dL Total Protein (6.3-8.2) g/dL Albumin (3.5-5.0) g/dL 03/01/21 Range/Units 12:55 WBC (3.8-10.6) k/uL Hgb (11.4-16.0) gm/dL Neutrophils # (1.3-7.7) k/uL Lymphocytes # (1.0-4.8) k/uL ABG pH (7.35-7.45) ABG pO2 (83-108) mmHg ABG Total CO2 (19-24) mmol/L ABG O2 Saturation (94-97) % Sodium 134 L (137-145) mmol/L Potassium (3.5-5.1) mmol/L Glucose 147 H (74-99) mg/dL Calcium 8.1 L (8.4-10.2) mg/dL Magnesium (1.6-2.3) mg/dL Total Protein 5.6 L (6.3-8.2) g/dL Albumin 3.1 L (3.5-5.0) g/dL Microbiology - Last 24 Hours (Table) 02/28/21 12:23 Stool Culture - Preliminary Stool Assessment and Plan Plan: Episodes of ventricular tachycardia, with syncope and loss of consciousness Underlying history of ischemic cardiomyopathy. 2-D echo completed showing an EF of 25-30% Hypokalemia and hypomagnesemia Acute kidney injury Underlying history of hypertension Underlying history of hyperlipidemia Underlying history of coronary artery disease with recent angioplasty and stent placement Diarrhea. Stool for C. diff and stool culture ordered She remains on IV amiodarone Cardiology and critical care service is following Per cardiology plans for AICD placement Stool for C. diff and stool cultures ordered replace electrolytes per protocol
--- NOTE | 2021-03-02 10:11 | P.PN ---
Subjective Progress Note Date: 03/02/21 Valerie Contreras, he is a 75-year-old female who presented to [facility] after having a syncopal episode, patient has a known history of coronary artery disease she recently had cardiac catheterization with stent placement, she was told that she needs coronary artery bypass surgery, however surgeon was waiting for her cardiac function to improve. In the meanwhile patient had a life vest placed on. Patient stated that she felt lightheaded and then had a syncopal episode, apparently patient had a ventricular arrhythmia and her life vest shocked her, EMS were called patient initially was alert and oriented when EMS arrived however he had a second episode of unresponsiveness, and apparently her life vest shocked her again. Patient was brought in to [facility] emergency room, on arrival to emergency room she was alert and oriented 3 in no distress, she denied having any chest pain or shortness of breath, vital examination on presentation revealed a temperature of 97.9 pulse 86 respiration 18 blood pressure 131/49 pulse ox 96% on room air. Laboratory data revealed a white blood count of 10.8 hemoglobin 11.5 platelet count 381 sodium 139 potassium 3.0 chloride 113 CO2 17 BUN 15 creatinine 1.14 glucose 174 troponin level 0.0-4 BNP 4950 COVID-19 PCR was negative , chest x- ray done in the emergency room revealed no acute pulmonary process mild cardiomegaly , first EKG done in the emergency room revealed undetermined rhythm with right bundle branch block and T-wave abnormalities , repeat EKG revealed normal sinus rhythm with right bundle branch block and T-wave abnormality in the anterior and lateral . she was admitted to intensive care unit for further evaluation and treatment. On 02/28/2021 patient alert and oriented 3. Patient currently resting in the intensive care unit. She remains on IV amiodarone. Per cardiology plans for ICD placement. Patient reports she has had diarrhea for the past 6 days which could contribute to her electrolyte imbalance. Patient reports occasional nausea and vomiting. Will order stool for C. diff and stool culture. Continue electrolyte replacement. At this time patient denies chest pain or shortness breath. Patient denies any urinary burning or frequency On 03/01/2021 status post AICD placement patient currently on mechanical ventilation resting comfortably in intensive care unit. Cardiology and pulmonary services following. On 03/02/2021 patient has been extubated to 4 L. GI services have been consulted due to diarrhea 1 week C. diff was negative. WBC elevated at 16.9 Will order UA chest x-ray and blood culture. At the time patient denies any chest pain or shortness of breath. Patient denies nausea vomiting or diarrhea. Patient denies any urinary burning or frequency. Objective - Vital Signs Vital signs: Vital Signs Temp 97.9 F 03/02/21 08:00 Pulse 74 03/02/21 09:00 Resp 8 L 03/02/21 09:00 BP 119/69 03/02/21 09:00 Pulse Ox 96 03/02/21 09:00 Intake & Output 03/01/21 03/02/21 03/02/21 18:59 06:59 18:59 Intake Total 1580.596 316.375 125.733 Output Total 1140 1200 415 Balance 440.596 -883.625 -289.267 Weight 68.1 kg Intake: IV 1025 120 20 0.9 KVO 120 20 Sodium Chloride 0.9% 500 500 ml 500 ml @ 999 mls/hr IV .Q31M [facility] Rx#:[id number] Intake, IV Titration 555.596 196.375 105.733 Amount Amiodarone 450 mg In 250 Dextrose 5% in Water 250 ml @ 0.5 MG/MIN 16.667 mls/hr IV .Q15H [facility] Rx#: [id number] Lidocaine-D5w Pmx 2G/ 196.375 250Ml 2,000 mg In Dextrose/Water 1 250ml. bag @ 1 MG/MIN 7.5 mls/hr IV .Q24H [facility] Rx#: [id number] Magnesium Sulfate-D5w Pmx 100 1 gm In Dextrose/Water 1 100ml.bag @ 100 mls/hr IVPB Q1H [facility] Rx#: [id number] Norepinephrine 4 mg In 2.595 105.733 Sodium Chloride 0.9% 250 ml @ 0.05 MCG/KG/MIN 12. 973 mls/hr IV .[id number] [facility] Rx#:[id number] Potassium Chloride 10 meq 100 In Water For Injection 1 100ml.bag @ 100 mls/hr IVPB Q1H [facility] Rx#: [id number] propofoL 1,000 mg In 103.001 Empty Bag 1 bag @ Titrate IV .Q0M [facility] Rx#: [id number] Output: Urine 1140 1200 415 Other: Voiding Method Indwelling Catheter Indwelling Catheter ABP, PAP, CO, CI - Last Documented Arterial Blood Pressure 118/52 - Exam In general patient is alert and oriented x3 in no distress HEENT head normocephalic and atraumatic Neck is supple no JVD no goiter no lymphadenopathy no carotid bruit Chest examination is clear to auscultation no crackles no wheezing Cardiac exam reveals regular heart sounds S1 and S2 no gallops no murmurs Abdomen is soft nontender no organomegaly with normal bowel sounds Extremity exam reveals no edema no cyanosis or clubbing Neurological examination reveals no gross focal deficits - Labs CBC & Chem 7: 03/02/21 05:50 03/02/21 05:50 Labs: Abnormal Lab Results - Last 24 Hours (Table) 03/01/21 03/01/21 03/01/21 Range/Units 10:07 12:55 12:55 WBC 15.4 H (3.8-10.6) k/uL RBC (3.80-5.40) m/uL Hgb 11.3 L (11.4-16.0) gm/dL Hct (34.0-46.0) % Neutrophils # 14.8 H (1.3-7.7) k/uL Lymphocytes # 0.3 L (1.0-4.8) k/uL ABG pH 7.34 L (7.35-7.45) ABG pCO2 (35-45) mmHg ABG pO2 74 L (83-108) mmHg ABG Total CO2 25 H (19-24) mmol/L ABG O2 Saturation 93.2 L (94-97) % Sodium 134 L (137-145) mmol/L Creatinine (0.52-1.04) mg/dL Glucose 147 H (74-99) mg/dL Calcium 8.1 L (8.4-10.2) mg/dL Magnesium (1.6-2.3) mg/dL Total Protein 5.6 L (6.3-8.2) g/dL Albumin 3.1 L (3.5-5.0) g/dL 03/01/21 03/02/21 03/02/21 Range/Units 22:43 05:50 05:50 WBC 16.9 H (3.8-10.6) k/uL RBC 3.62 L (3.80-5.40) m/uL Hgb 10.5 L (11.4-16.0) gm/dL Hct 32.5 L (34.0-46.0) % Neutrophils # 15.6 H (1.3-7.7) k/uL Lymphocytes # 0.4 L (1.0-4.8) k/uL ABG pH (7.35-7.45) ABG pCO2 32 L (35-45) mmHg ABG pO2 72 L (83-108) mmHg ABG Total CO2 (19-24) mmol/L ABG O2 Saturation (94-97) % Sodium 134 L (137-145) mmol/L Creatinine 1.20 H (0.52-1.04) mg/dL Glucose 127 H (74-99) mg/dL Calcium 8.1 L (8.4-10.2) mg/dL Magnesium 2.4 H (1.6-2.3) mg/dL Total Protein 6.0 L (6.3-8.2) g/dL Albumin 3.3 L (3.5-5.0) g/dL Assessment and Plan Plan: Episodes of ventricular tachycardia, with syncope and loss of consciousness. Status post AICD placement Underlying history of ischemic cardiomyopathy. 2-D echo completed showing an EF of 25-30% Hypokalemia and hypomagnesemia Acute kidney injury Underlying history of hypertension Underlying history of hyperlipidemia Underlying history of coronary artery disease with recent angioplasty and stent placement Diarrhea. Stool for C. diff and stool culture ordered. Stool culture negative. GI service is consulted Elevated white blood cell count. Chest x-ray, blood culture and urinary analysis ordered Cardiology and critical care service is following Status post AICD placement on 03/01/2021 Stool for C. diff and stool cultures ordered replace electrolytes per protocol
[2021-03-02 10:42] LABS: Appearance,Urine Clear (Clear); Bilirubin,Urine Negative (Negative); Blood,Urine Negative (Negative); Color,Urine Colorless; Glucose,Urine (UA) Negative (Negative); Ketones,Urine Negative (Negative); Leukocyte Esterase,Urine Negative (Negative); Nitrite,Urine Negative (Negative); Protein,Urine Negative (Negative); Specific Gravity,Urine 1.004 (1.001-1.035); Urobilinogen,Urine <2.0 mg/dL (<2.0)
--- NOTE | 2021-03-02 12:25 | P.PN ---
Subjective Progress Note Date: 03/02/21 Principal diagnosis: Acute hypoxic respiratory failure secondary to acute on chronic systolic congestive heart failure This is a 75-year-old female with history of coronary artery disease, previous DC, previous stent placement 2 in [place], patient had a life vest placed recently while in [place], and stent placement in [place], apparently the patient has history of severe LV dysfunction, and the plan was to decide in the future whether the patient would require AICD placement. This will depend on her LV function improvement if any. I am not certain whether the patient was also being considered for CABG. Patient has been experiencing since early this morning intermittent episodes of lightheadedness and had 1 syncopal event. Patient had 1 defibrillation done by her life vest earlier this morning, and since then she had at least 5 further episodes. EMS arrived to the scene after her initial defibrillation. Patient was almost going into a syncopal episode, and she was noted to have ventricular tachycardia. Patient had a witnessed defibrillation done by the life vest when they were at the scene. On the monitor the patient had ventricular tachycardia and later on had multiple PVCs. Patient was loaded with 300 mg of amiodarone, and arrangements were made for her to be brought into the ER. Patient normally sees Dr. Nice on outpatient basis. And he will be seeing the patient in the ER. During my evaluation, the patient had a bit of nausea but no palpitations, no chest pain, no shortness of breath. EKG in the ER showed normal sinus rhythm rate of 81, no acute ischemic changes noted. Labs in the ER showed normal CBC. Normal pro time and INR. Low potassium of 3.0 bicarb is 17 BUN of 15 creatinine 1.14, BNP level was 4950 troponin 0.024. PCR for COVID-19 was negative. Chest x-ray showed no evidence of infiltrate and no evidence of pulmonary edema considering the patient is having intermittent episodes of ventricular tachycardia, I was asked to see the patient for admission to the ICU. I will accept the patient to be admitted to the ICU, and cardiology to see the patient in consultation Age and was reevaluated today on 02/28/2021, patient remains in the ICU, I saw her yesterday on consultation, patient had a new life vest placed yesterday, no further episodes of ventricular tachycardia since she was admitted to the ICU. Repeat echocardiogram showed poor LV function with ejection fraction of 25-50%. Patient remains on amiodarone at 0.5 mg her minutes. Her IV fluid to KVO. Patient is on room air and over/is 93%. She is in sinus rhythm, evaluated by cardiology, and she will be seen by Dr. Flores for possible ICD placement. Labs today were basically unremarkable including normal CBC and normal electrolytes normal renal profile Patient was reevaluated today on 03/01/2021, patient underwent ICD placement today, however she came back from the blood bank laboratory technician on mechanical ventilation. Apparently the patient went on to develop acute pulmonary edema worsening hypoxemia and required intubation while in the blood bank laboratory technician, back to the ICU and I was asked to see her again after arrival to the ICU. Chest x-ray is clearly showing evidence of pulmonary edema. Hence Lasix was ordered, patient is hemodynamically stable, not requiring any inotropes or process, but she remains on amiodarone. Actually last night the patient's pulmonary status was deteriorating and she required Lasix at night. Presently the patient is on assist control rate of 14, volume 400 FiO2 100% PEEP of 5 and a increase it up to 8. ABG showed a pO2 of 74 pCO2 44 pH of 7.36. Patient is on lidocaine and amiodarone and propofol. This a.m., patient had ventricular tachycardia, and went on to develop pulmonary edema. Apparently she had also an episode of ventricular tachycardia last night when she was in the unit. And she was defibrillated 6 times. Labs today were reviewed, she had a relatively normal electrolytes and normal renal profile. Lips count is 15.4 hemoglobin is 11.3. PTT is 24.1. Potassium is 3.7 Patient was reevaluated today on 03/02/2021, patient remains in the ICU, she was intubated yesterday, last night her clinical condition showed significant improvement, hence the patient was taken off propofol, checked her weaning parameters, and she was weaned and extubated around midnight last night. Her chest x-ray this morning showed significant improvement in her pulmonary edema. Patient is not requiring any pressors or any inotropes. She is on 4 L nasal cannula and O2 saturations 96%. She is off IV lidocaine and off IV amiodarone, she will be placed on oral amiodarone as per cardiology. Chest x-ray again as noted above. Patient is developing a bit of a hematoma at the insertion site of her ICD in the left subclavian area, cardiology is aware. WBC count today 16.9 hemoglobin is 10.5. Electrolytes are normal slight worsening of the renal profile creatinine up to 1.20. BUN is 16. Objective - Vital Signs Vital signs: Vital Signs Temp 97.6 F 03/02/21 12:00 Pulse 70 03/02/21 12:00 Resp 12 03/02/21 12:00 BP 119/57 03/02/21 12:00 Pulse Ox 94 L 03/02/21 12:00 Intake & Output 03/01/21 03/02/21 03/02/21 18:59 06:59 18:59 Intake Total 1580.596 316.375 635.733 Output Total 1140 1200 1230 Balance 440.596 -883.625 -594.267 Weight 68.1 kg 68.1 kg Intake: IV 1025 120 50 0.9 KVO 120 50 Sodium Chloride 0.9% 500 500 ml 500 ml @ 999 mls/hr IV .Q31M [facility] Rx#:[id number] Intake, IV Titration 555.596 196.375 105.733 Amount Amiodarone 450 mg In 250 Dextrose 5% in Water 250 ml @ 0.5 MG/MIN 16.667 mls/hr IV .Q15H [facility] Rx#: [id number] Lidocaine-D5w Pmx 2G/ 196.375 250Ml 2,000 mg In Dextrose/Water 1 250ml. bag @ 1 MG/MIN 7.5 mls/hr IV .Q24H [facility] Rx#: [id number] Magnesium Sulfate-D5w Pmx 100 1 gm In Dextrose/Water 1 100ml.bag @ 100 mls/hr IVPB Q1H [facility] Rx#: [id number] Norepinephrine 4 mg In 2.595 105.733 Sodium Chloride 0.9% 250 ml @ 0.05 MCG/KG/MIN 12. 973 mls/hr IV .[id number] [facility] Rx#:[id number] Potassium Chloride 10 meq 100 In Water For Injection 1 100ml.bag @ 100 mls/hr IVPB Q1H [facility] Rx#: [id number] propofoL 1,000 mg In 103.001 Empty Bag 1 bag @ Titrate IV .Q0M [facility] Rx#: [id number] Oral 480 Output: Urine 1140 1200 1230 Other: Voiding Method Indwelling Catheter Indwelling Catheter Indwelling Catheter ABP, PAP, CO, CI - Last Documented Arterial Blood Pressure 122/52 - Exam Physical Exam: Revealed a 75-year-old female, in no distress on 4 L nasal cannula with O2 saturation of 96%. Head: Atraumatic, normocephalic. HEENT:[Neck is supple.] [No neck masses.] [No thyromegaly.] [No JVD.] Chest: [Symmetrical chest expansion, minimal crackles at the bases. Small hematoma noted at the site of insertion of the ICD in the left subclavian area. Cardiac Exam: [Distant S1 and S2, no S3 gallop, 2/6 systolic murmur thought the precordium..] Abdomen: [Soft, nontender, no megaly, no rebound, no guarding, normal bowel sounds.] Extremities: [No clubbing, trace of bipedal edema, no cyanosis.] Neurological Exam: Alert oriented 3 no gross focal deficits. Psychiatric: Normal mood, affect and normal mental status exam Skin: No rashes. - Labs CBC & Chem 7: 03/02/21 05:50 03/02/21 05:50 Labs: Abnormal Lab Results - Last 24 Hours (Table) 03/01/21 03/01/21 03/01/21 Range/Units 12:55 12:55 22:43 WBC 15.4 H (3.8-10.6) k/uL RBC (3.80-5.40) m/uL Hgb 11.3 L (11.4-16.0) gm/dL Hct (34.0-46.0) % Neutrophils # 14.8 H (1.3-7.7) k/uL Lymphocytes # 0.3 L (1.0-4.8) k/uL ABG pCO2 32 L (35-45) mmHg ABG pO2 72 L (83-108) mmHg Sodium 134 L (137-145) mmol/L Creatinine (0.52-1.04) mg/dL Glucose 147 H (74-99) mg/dL Calcium 8.1 L (8.4-10.2) mg/dL Magnesium (1.6-2.3) mg/dL Total Protein 5.6 L (6.3-8.2) g/dL Albumin 3.1 L (3.5-5.0) g/dL 03/02/21 03/02/21 Range/Units 05:50 05:50 WBC 16.9 H (3.8-10.6) k/uL RBC 3.62 L (3.80-5.40) m/uL Hgb 10.5 L (11.4-16.0) gm/dL Hct 32.5 L (34.0-46.0) % Neutrophils # 15.6 H (1.3-7.7) k/uL Lymphocytes # 0.4 L (1.0-4.8) k/uL ABG pCO2 (35-45) mmHg ABG pO2 (83-108) mmHg Sodium 134 L (137-145) mmol/L Creatinine 1.20 H (0.52-1.04) mg/dL Glucose 127 H (74-99) mg/dL Calcium 8.1 L (8.4-10.2) mg/dL Magnesium 2.4 H (1.6-2.3) mg/dL Total Protein 6.0 L (6.3-8.2) g/dL Albumin 3.3 L (3.5-5.0) g/dL Assessment and Plan Assessment: Impression: Acute hypoxic respiratory failure secondary to acute systolic congestive heart failure and chronic ischemic LV dysfunction requiring intubation and mechanical ventilation. Status post ICD placement for recurrent ventricular tachycardia Ischemic cardiomyopathy and poor LV function. Recurrent ventricular tachycardia Hypokalemia and hypomagnesemia, being treated as per protocol. History of underlying coronary artery disease. Acute kidney injury secondary to ventricular tachycardia and LV dysfunction, improving. Ischemic cardiomyopathy and LV dysfunction Chest wall hematoma, iatrogenic, related to ICD placement. Expected. Recommendation: Patient was successfully extubated last night. However will need to be monitored in the ICU. For at least the next 24 hours. Oral amiodarone instead of IV amiodarone and IV lidocaine. Continue to monitor in the ICU. Discontinue arterial line in the next 24 hours. Advanced diet as tolerated. Continue Lasix Follow-up chest x-ray this morning was reviewed. Continue to monitor and adjust electrolytes accordingly. We'll continue to follow while in the ICU. Time with Patient: Less than 30
[2021-03-02] MEDS ORDERED: Potassium Replacement Protocol 1 EACH MISC MISCELLANE PRN ×2 (15:05→15:12)
[2021-03-02] MEDS: POTASSIUM CHLORIDE 10 MEQ in WATER FOR INJECTION 1 100ML.BAG IVPB SCH ×2 (15:51→17:09)
--- NOTE | 2021-03-02 16:11 | P.CONS ---
History of Present Illness - Reason for Consult Consult date: 03/02/21 Diarrhea Requesting physician: Ritu Walker - Chief Complaint Palpitations, syncope - History of Present Illness 75-year-old female with a medical history significant for coronary artery disease, hypertension, reported history of colon cancer for which the patient underwent partial colectomy and subsequent chemotherapy which she reports last receiving in November who presented to the hospital due to complaints of palpitations and a syncopal episode. Patient has subsequently been treated in the intensive care unit and is being treated by the cardiology service and is st atus post AICD placement. Gastric neurology was called to see the patient regarding diarrhea. The patient reports possibly 1 week of frequent loose bowel movements. She reports bowel movements occurring after eating. No abdominal pain or cramping reported. No nausea vomiting reported. Testing for Clostridium difficile has been negative. Laboratory evaluation significant for WBC 16.9, hemoglobin 10.3, platelet count 373 cell thousand. Patient reports that she has had diarrhea in the past, in general this is been associated with her chemotherapy. She reports that she has a known history of colon cancer initially diagnosed on colonoscopy in 2016 the patient subsequently underwent surgical resection and has received chemotherapy since that time. She reports last receiving chemotherapy in 12/16. She reports that she has used antidiarrheals and Imodium for treatment of her diarrhea in the past but that occasionally this is caused constipation. She is also use Zofran for nausea. Review of Systems REVIEW OF SYSTEMS: CONSTITUTIONAL: Denies any fevers, chills, weight change or fatigue. CARDIOVASCULAR: Denies any chest pain, palpitations high or low blood pressures at this time but she did have syncope palpitations on presentation and is status post AICD placement. RESPIRATORY: Denies any shortness of breath, hemoptysis or cough. GENITOURINARY: No dysuria or hematuria. MUSCULOSKELETAL: No weakness reported. SKIN: Denies any new rashes or lesions, jaundice or pallor. PSYCHIATRIC: Denies any depression or anxiety. NEUROLOGY: Denies headache, denies any new focal deficits. EARS/NOSE/THROAT: No recent hearing change, congestion, nasal discharge or sore throat. EYES: No pain in eyes, discharge or change in vision. GASTROINTESTINAL: As per HPI. Past Medical History Past Medical History: Cancer, Chest Pain / Angina Additional Past Medical History / Comment(s): Colon. Last Myocardial Infarction Date:: 12/15/20 History of Any Multi-Drug Resistant Organisms: None Reported Past Surgical History: Heart Catheterization, Heart Catheterization With Stent Additional Past Surgical History / Comment(s): CHOLECYSTECTOMY 10/2016, GLAUCOMA, CATARACTS SURG RIGHT EYE 12/13/20 Past Anesthesia/Blood Transfusion Reactions: Postoperative Nausea & Vomiting (PONV) Date of Last Stent Placement:: 12/13/2020 2 STENTS PLACED "FRONT". Past Psychological History: No Psychological Hx Reported Smoking Status: Never smoker Past Alcohol Use History: Occasional Past Drug Use History: None Reported Additional History: Family history: Reviewed with the patient and noncontributory to current medical presentation. Medications and Allergies Home Medications Medication Instructions Recorded Confirmed Type Aspirin EC [Ecotrin Low Dose] 81 mg PO DAILY 02/27/21 02/27/21 History Bimatoprost [Lumigan .01% Ophth 1 drop LEFT EYE HS 02/27/21 02/27/21 History Soln] Brimonidine Tartrate/Timolol 1 drop LEFT EYE BID 02/27/21 02/27/21 History [Combigan 0.2%-0.5% Eye Drops] Loperamide [Imodium] 2 mg PO QID PRN 02/27/21 02/27/21 History Loteprednol Etabonate [Inveltys] 1 drop RIGHT EYE DAILY 02/27/21 02/27/21 History Melatonin 3 mg PO HS PRN 02/27/21 02/27/21 History Metoprolol Succinate [Toprol XL] 25 mg PO DAILY 02/27/21 02/27/21 History Pantoprazole Sodium [Protonix] 40 mg PO DAILY 02/27/21 02/27/21 History Pravastatin Sodium [Pravachol] 80 mg PO HS 02/27/21 02/27/21 History Ticagrelor [Brilinta] 90 mg PO BID 02/27/21 02/27/21 History amLODIPine [Norvasc] 10 mg PO DAILY 02/27/21 02/27/21 History lisinopriL 40 mg PO DAILY 02/27/21 02/27/21 History Allergies Allergy/AdvReac Type Severity Reaction Status Date / Time morphine AdvReac Nausea & Verified 02/27/21 12:56 Vomiting Physical Exam Vitals: Vital Signs Temp Pulse Resp BP Pulse Ox 03/02/21 13:00 69 17 106/60 94 L 03/02/21 12:00 97.6 F 70 12 119/57 94 L 03/02/21 11:00 68 16 118/67 97 03/02/21 10:00 67 12 113/62 97 03/02/21 09:00 74 14 119/69 96 03/02/21 08:00 97.9 F 70 13 113/62 96 03/02/21 07:00 71 17 124/69 98 03/02/21 06:00 69 16 113/65 96 03/02/21 05:00 62 16 117/79 95 03/02/21 04:00 65 17 119/74 96 03/02/21 03:00 62 18 107/65 93 L 03/02/21 02:00 63 17 122/80 93 L 03/02/21 01:00 64 18 110/69 93 L 03/02/21 00:10 97.8 F 72 21 109/68 94 L 03/02/21 00:00 98.2 F 66 17 117/78 94 L 03/01/21 23:00 78 13 122/73 95 03/01/21 22:00 76 20 102/79 97 03/01/21 21:00 64 17 117/71 95 03/01/21 20:00 98 F 66 17 113/76 94 L 03/01/21 19:00 54 L 16 99 03/01/21 18:30 55 L 16 99 03/01/21 18:00 54 L 16 99 03/01/21 17:30 57 L 16 99 03/01/21 17:00 56 L 16 99 03/01/21 16:30 58 L 16 98 03/01/21 16:00 57 L 16 99 03/01/21 15:30 56 L 16 99 03/01/21 15:00 56 L 16 100 03/01/21 14:30 61 22 98 03/01/21 14:00 56 L 16 99 Intake and Output 03/01/21 03/02/21 03/02/21 22:59 06:59 14:59 Intake Total 1095.596 839.297 3036.733 Output Total 225 1110 1580 Balance 870.596 -833.625 -454.267 Intake: IV 540 80 60 0.9 KVO 40 80 60 Sodium Chloride 0.9% 500 500 ml 500 ml @ 999 mls/hr IV .Q31M [facility] Rx#:[id number] Intake, IV Titration 555.596 196.375 105.733 Amount Amiodarone 450 mg In 250 Dextrose 5% in Water 250 ml @ 0.5 MG/MIN 16.667 mls/hr IV .Q15H [facility] Rx#: [id number] Lidocaine-D5w Pmx 2G/ 196.375 250Ml 2,000 mg In Dextrose/Water 1 250ml. bag @ 1 MG/MIN 7.5 mls/hr IV .Q24H [facility] Rx#: [id number] Magnesium Sulfate-D5w Pmx 100 1 gm In Dextrose/Water 1 100ml.bag @ 100 mls/hr IVPB Q1H [facility] Rx#: [id number] Norepinephrine 4 mg In 2.595 105.733 Sodium Chloride 0.9% 250 ml @ 0.05 MCG/KG/MIN 12. 973 mls/hr IV .[id number] [facility] Rx#:[id number] Potassium Chloride 10 meq 100 In Water For Injection 1 100ml.bag @ 100 mls/hr IVPB Q1H [facility] Rx#: [id number] propofoL 1,000 mg In 103.001 Empty Bag 1 bag @ Titrate IV .Q0M [facility] Rx#: [id number] Oral 960 Output: Urine 225 1110 1580 Other: Voiding Method Indwelling Catheter Indwelling Catheter Indwelling Catheter # Bowel Movements 1 Weight 68.1 kg ABP, PAP, CO, CI - Last 8 Hours Arterial Blood Pressure 130/65 Arterial Blood Pressure 122/52 Arterial Blood Pressure 129/60 Arterial Blood Pressure 145/74 Arterial Blood Pressure 118/52 Arterial Blood Pressure 121/52 Arterial Blood Pressure 122/52 Arterial Blood Pressure 121/52 On physical examination, patient appears comfortable in no apparent distress. HEAD: Normocephalic, atraumatic. EYES: No scleral icterus. No conjunctival injection. MOUTH: No lesions, tongue midline. NECK: Trachea midline, no gross abnormalities. CHEST: Clear to auscultation with no wheezing or rhonchi appreciated. HEART: S1-S2 appreciated. ABDOMEN: Soft, soft and nontender to palpation. Bowel sounds are positive. No organomegaly. No guarding or rigidity. EXTREMITIES: No pedal edema. SKIN: No rashes, no jaundice. NEUROLOGIC: Alert and oriented x3. No focal deficits. Results CBC & Chem 7: 06/04/21 05:50 03/02/21 14:21 Labs: Abnormal Lab Results - Last 24 Hours (Table) 03/01/21 03/01/21 03/02/21 Range/Units 12:55 22:43 05:50 WBC 15.4 H 16.9 H (3.8-10.6) k/uL RBC 3.62 L (3.80-5.40) m/uL Hgb 11.3 L 10.5 L (11.4-16.0) gm/dL Hct 32.5 L (34.0-46.0) % Neutrophils # 14.8 H 15.6 H (1.3-7.7) k/uL Lymphocytes # 0.3 L 0.4 L (1.0-4.8) k/uL ABG pCO2 32 L (35-45) mmHg ABG pO2 72 L (83-108) mmHg Sodium (137-145) mmol/L Creatinine (0.52-1.04) mg/dL Glucose (74-99) mg/dL Calcium (8.4-10.2) mg/dL Magnesium (1.6-2.3) mg/dL Total Protein (6.3-8.2) g/dL Albumin (3.5-5.0) g/dL 03/02/21 Range/Units 05:50 WBC (3.8-10.6) k/uL RBC (3.80-5.40) m/uL Hgb (11.4-16.0) gm/dL Hct (34.0-46.0) % Neutrophils # (1.3-7.7) k/uL Lymphocytes # (1.0-4.8) k/uL ABG pCO2 (35-45) mmHg ABG pO2 (83-108) mmHg Sodium 134 L (137-145) mmol/L Creatinine 1.20 H (0.52-1.04) mg/dL Glucose 127 H (74-99) mg/dL Calcium 8.1 L (8.4-10.2) mg/dL Magnesium 2.4 H (1.6-2.3) mg/dL Total Protein 6.0 L (6.3-8.2) g/dL Albumin 3.3 L (3.5-5.0) g/dL Chest x-ray: report reviewed Assessment and Plan (1) Acute diarrhea Narrative/Plan: 75-year-old female who presented to the hospital due to palpitations and syncope found to be in ventricular tachycardia status post AICD placement. Patient is currently being managed in the ICU in association with the cardiology service. Patient has had loose frequent bowel movements since presentation to the hospital. Testing for Clostridium difficile negative. General patient reports she is regular but does report that she has had diarrhea in association with chemotherapy in the past and has used Imodium as needed for treatment. Currently reporting frequent loose bowel movements worsened with eating. No abdominal pain or cramping. Unclear etiology, may be medication related to m ultiple medical medications, would recommend repeat stool testing to rule out infectious etiology, or other etiology. Current Visit: Yes Status: Acute Code(s): R19.7 - DIARRHEA, UNSPECIFIED SNOMED Code(s): 399028454 (2) History of colon cancer Narrative/Plan: Patient reports personal history of colon cancer diagnosed in 2017 status post surgical resection and is subsequently received chemotherapy last treated in 11/2020 as per reports by the patient and her daughter who is seated bedside. Current Visit: Yes Status: Acute Code(s): Z85.038 - PERSONAL HISTORY OF MALIGNANT NEOPLASM OF LARGE INTESTINE SNOMED Code(s): 727524158 Plan: Supportive care Okay for diet as tolerated, extensive discussion with the patient and her family and recommendations for low lactose, low fiber Clostridium difficile testing ordered an negative, would recommend repeat testing with PCR as well as stool studies including parasites, lactoferrin and culture, although given the acuity of symptoms suspicion is for diarrhea related to new medications Cholestyramine twice a day added for stool bulking, if stool testing is negative will add antidiarrheal either Imodium or Lomotil Continue to monitor stool output Continue other medical management as per primary team, cardiology and inspector of dredging service Thank you for allowing us to participate in the care of the patient
[2021-03-02] MEDS: CHOLESTYRAMINE (WITH SUGAR) 4 GM PACKET PO SCH (16:23)
[2021-03-02] MEDS: [UNRECOGNIZED DRUG - OTHER] RIGHT EYE SCH (22:00)
[2021-03-02] MEDS: SODIUM CHLORIDE 5% BOTH EYES PRN (22:00)
[2021-03-03] MEDS: CHLORHEXIDINE GLUCONATE 15 ML CUP MUCOUS MEM SCH ×2 (00:39→08:56)
[2021-03-03] MEDS: PRAVASTATIN SODIUM 80 MG TAB PO SCH (00:40)
[2021-03-03 05:22] LABS: Basophils % (A) 0 %; Eosinophils # (A) 0.3 k/uL (0-0.7); Eosinophils % (A) 2 %; HCT 28.7 % (34.0-46.0); HGB 10.1 gm/dL (11.4-16.0); Lymphocytes # (A) 0.5 k/uL (1.0-4.8); Lymphocytes % (A) 4 %; MCHC 35.1 g/dL (31.0-37.0); MCV 88.2 fL (80.0-100.0); Monocytes # (A) 0.5 k/uL (0-1.0); Monocytes % (A) 4 %; Neutrophils # (A) 10.2 k/uL (1.3-7.7); Neutrophils % (A) 89 %; Platelet Count 226 k/uL (150-450); RBC 3.25 m/uL (3.80-5.40); RDW 15.1 % (11.5-15.5); WBC 11.5 k/uL (3.8-10.6)
[2021-03-03 05:34] LABS: Albumin 3.2 g/dL (3.5-5.0); Calcium 8.5 mg/dL (8.4-10.2); Magnesium 1.8 mg/dL (1.6-2.3); Potassium 3.2 mmol/L (3.5-5.1); Total Bilirubin 0.4 mg/dL (0.2-1.3); Total Protein 5.8 g/dL (6.3-8.2)
--- NOTE | 2021-03-03 07:22 | XR ---
EXAMINATION TYPE: XR chest 1V portable DATE OF EXAM: 03/03/2021 COMPARISON: 03/02/2021 HISTORY: CHF TECHNIQUE: Single frontal view of the chest is obtained. FINDINGS: Mediport catheter tip in the SVC/RA junction unchanged in position. Single lead cardiac pa cemaker unchanged in position. The lungs are clear of consolidative, interstitial or masslike opacity. There is no pleural effusion or pneumothorax. Heart size is normal and the pulmonary vasculature is n ot congested. The osseous structures are intact. . IMPRESSION: No acute process. No interval change
[2021-03-03] MEDS ORDERED: Potassium Replacement Protocol 1 EACH MISC MISCELLANE PRN ×2 (07:35→14:54)
[2021-03-03] MEDS: POTASSIUM BICARBONATE/CIT AC 20 MEQ TABLET.EFF NG-TUBE SCH ×2 (08:54→11:11)
[2021-03-03] MEDS: CHOLESTYRAMINE (WITH SUGAR) 4 GM PACKET PO SCH (08:54)
[2021-03-03] MEDS: lisinopriL 10 MG TAB PO SCH (08:55)
[2021-03-03] MEDS: TICAGRELOR 90 MG TAB PO SCH (08:55)
[2021-03-03] MEDS: ASPIRIN 81 MG PO SCH (08:55)
[2021-03-03] MEDS: SPIRONOLACTONE 25 MG TAB PO SCH (08:55)
[2021-03-03] MEDS: AMIODARONE 200 MG TAB PO SCH (08:55)
[2021-03-03] MEDS: FUROSEMIDE 40 MG TAB PO SCH ×2 (08:56→14:52)
[2021-03-03] MEDS: NOREPINEPHRINE 4 MG in SODIUM CHLORIDE 0.9% 250 ML IV SCH (08:56)
[2021-03-03] MEDS: COMBIGAN LEFT EYE SCH (08:59)
[2021-03-03] MEDS ORDERED: POTASSIUM CHLORIDE ER 20 MEQ TAB.ER PO SCH (09:00)
[2021-03-03] MEDS ORDERED: METOPROLOL TARTRATE 50 MG TAB PO SCH (09:00)
[2021-03-03] MEDS ORDERED: DIPHENOX-ATROP 2.5-0.025 MG 1 EACH TAB PO PRN (11:41)
--- NOTE | 2021-03-03 12:13 | PN ---
PROGRESS NOTE Mrs. Contreras is a 75-year-old female with known history of severe ischemic cardiomyopathy status post myocardial infarction involving the left anterior descending artery in [place], presented with diarrhea and subsequent discharge with her LifeVest. With recurrent ventricular tachycardia, she underwent placement of an ICD. She had an episode of pulmonary edema that resolved. She is feeling well this morning. Her breathing is stable. She denies any chest pain. She denies any dizziness. No palpitation. She is sitting up in the bed in sinus mechanism. She continues to be on amiodarone 400 mg twice a day, aspirin once a day, furosemide 40 mg IV q.12 hours, lisinopril 10 mg twice a day, metoprolol tartrate 25 mg twice a day, Aldactone 25 mg daily, Brilinta 90 mg twice a day in addition to pravastatin 80 mg daily. PHYSICAL EXAMINATION: VITAL SIGNS: Blood pressure running in the 120s with a heart rate in 60s and 70s. LUNGS: Clear. HEART: Regular rate and rhythm, S1, S2. No S3. No rub appreciated with a systolic murmur. Pacemaker site has mild swelling but no erythema. ABDOMEN: Soft, nontender. EXTREMITIES: No edema. LAB DATA: Lab data revealed BUN and creatinine are 23 and 1.22. Potassium of 3.2, hemoglobin 10.5, white blood cell of 11.5. IMPRESSION: 1. Status post ICD implantation for recurrent ventricular tachycardia in the setting of severe ischemic cardiomyopathy. 2. Severe ischemic cardiomyopathy. 3. History of coronary artery disease status post stenting with no evidence to suggest stent occlusion. 4. Hypokalemia, being treated. 5. Diarrhea workup in progress. 6. History of lung cancer. RECOMMENDATION: I will increase the dose of beta chris, switch her to oral diuretics and her put on a supplementation of her potassium. Increase her level of activity gradually and depending on her progress, further recommendation will be made. MMODL / IJN: [id number] /
--- NOTE | 2021-03-03 12:20 | P.PN ---
Subjective Progress Note Date: 03/03/21 Principal diagnosis: Acute hypoxic respiratory failure secondary to acute on chronic systolic congestive heart failure This is a 75-year-old female with history of coronary artery disease, previous [place], previous stent placement 2 in [place], patient had a life vest placed recently while in [place], and stent placement in [place], apparently the patient has history of severe LV dysfunction, and the plan was to decide in the future whether the patient would require AICD placement. This will depend on her LV function improvement if any. I am not certain whether the patient was also being considered for CABG. Patient has been experiencing since early this morning intermittent episodes of lightheadedness and had 1 syncopal event. Patient had 1 defibrillation done by her life vest earlier this morning, and since then she had at least 5 further episodes. EMS arrived to the scene after her initial defibrillation. Patient was almost going into a syncopal episode, and she was noted to have ventricular tachycardia. Patient had a witnessed defibrillation done by the life vest when they were at the scene. On the monitor the patient had ventricular tachycardia and later on had multiple PVCs. Patient was loaded with 300 mg of amiodarone, and arrangements were made for her to be brought into the ER. Patient normally sees Dr. Nice on outpatient basis. And he will be seeing the patient in the ER. During my evaluation, the patient had a bit of nausea but no palpitations, no chest pain, no shortness of breath. EKG in the ER showed normal sinus rhythm rate of 81, no acute ischemic changes noted. Labs in the ER showed normal CBC. Normal pro time and INR. Low potassium of 3.0 bicarb is 17 BUN of 15 creatinine 1.14, BNP level was 4950 troponin 0.024. PCR for COVID-19 was negative. Chest x-ray showed no evidence of infiltrate and no evidence of pulmonary edema considering the patient is having intermittent episodes of ventricular tachycardia, I was asked to see the patient for admission to the ICU. I will accept the patient to be admitted to the ICU, and cardiology to see the patient in consultation Age and was reevaluated today on 02/28/2021, patient remains in the ICU, I saw her yesterday on consultation, patient had a new life vest placed yesterday, no further episodes of ventricular tachycardia since she was admitted to the ICU. Repeat echocardiogram showed poor LV function with ejection fraction of 25-50%. Patient remains on amiodarone at 0.5 mg her minutes. Her IV fluid to KVO. Patient is on room air and over/is 93%. She is in sinus rhythm, evaluated by cardiology, and she will be seen by Dr. Flores for possible ICD placement. Labs today were basically unremarkable including normal CBC and normal electrolytes normal renal profile Patient was reevaluated today on 03/01/2021, patient underwent ICD placement today, however she came back from the sleep lab technologist on mechanical ventilation. Apparently the patient went on to develop acute pulmonary edema worsening hypoxemia and required intubation while in the sleep lab technologist, back to the ICU and I was asked to see her again after arrival to the ICU. Chest x-ray is clearly showing evidence of pulmonary edema. Hence Lasix was ordered, patient is hemodynamically stable, not requiring any inotropes or process, but she remains on amiodarone. Actually last night the patient's pulmonary status was deteriorating and she required Lasix at night. Presently the patient is on assist control rate of 14, volume 400 FiO2 100% PEEP of 5 and a increase it up to 8. ABG showed a pO2 of 74 pCO2 44 pH of 7.36. Patient is on lidocaine and amiodarone and propofol. This a.m., patient had ventricular tachycardia, and went on to develop pulmonary edema. Apparently she had also an episode of ventricular tachycardia last night when she was in the unit. And she was defibrillated 6 times. Labs today were reviewed, she had a relatively normal electrolytes and normal renal profile. Lips count is 15.4 hemoglobin is 11.3. PTT is 24.1. Potassium is 3.7 Patient was reevaluated today on 03/02/2021, patient remains in the ICU, she was intubated yesterday, last night her clinical condition showed significant improvement, hence the patient was taken off propofol, checked her weaning parameters, and she was weaned and extubated around midnight last night. Her chest x-ray this morning showed significant improvement in her pulmonary edema. Patient is not requiring any pressors or any inotropes. She is on 4 L nasal cannula and O2 saturations 96%. She is off IV lidocaine and off IV amiodarone, she will be placed on oral amiodarone as per cardiology. Chest x-ray again as noted above. Patient is developing a bit of a hematoma at the insertion site of her ICD in the left subclavian area, cardiology is aware. WBC count today 16.9 hemoglobin is 10.5. Electrolytes are normal slight worsening of the renal profile creatinine up to 1.20. BUN is 16. Patient was reevaluated today on 03/03/2021, remains in the ICU, she tolerated the extubation well over the last 36 hours, patient has no active pulmonary symptoms, however she continues to have more GI symptoms and diarrhea, and she was seen by gastroenterology on consultation who is recommending other diagnostic studies including culture for parasites, lactoferrin which is positive, and mostly symptomatic treatment. Cardiac-davis, patient seems to be doing better, no further episodes of ventricular tachycardia. Chest x-ray s howed no acute process, and there is complete resolution of pulmonary edema. CBC today showed relatively normal CBC. WBC count is 11.5 hemoglobin is 10.1. Renal profile is slightly worse with creatinine of 1.2 to potassium is 3.2 being corrected as per protocol. Objective - Vital Signs Vital signs: Vital Signs Temp 98.4 F 03/03/21 08:00 Pulse 56 L 03/03/21 11:00 Resp 17 03/03/21 11:00 BP 108/60 03/03/21 11:00 Pulse Ox 99 03/03/21 09:00 Intake & Output 03/02/21 03/03/21 03/03/21 18:59 06:59 18:59 Intake Total 1525.733 30 50 Output Total 2675 1675 555 Balance -1149.267 -1645 -505 Weight 68.1 kg 68.8 kg Intake: IV 110 30 50 0.9 KVO 110 30 50 Intake, IV Titration 305.733 Amount Norepinephrine 4 mg In 105.733 Sodium Chloride 0.9% 250 ml @ 0.05 MCG/KG/MIN 12. 973 mls/hr IV .[id number] [facility] Rx#:[id number] Potassium Chloride 10 meq 200 In Water For Injection 1 100ml.bag @ 100 mls/hr IVPB Q1H [facility] Rx#: [id number] Oral 1110 Output: Urine 2675 1675 555 Other: Voiding Method Indwelling Catheter Indwelling Catheter Indwelling Catheter # Bowel Movements 1 ABP, PAP, CO, CI - Last Documented Arterial Blood Pressure 112/52 - Exam Physical Exam: Revealed a 75-year-old female, in no distress on 4 L nasal cannula , asymptomatic except for diarrhea. Head: Atraumatic, normocephalic. HEENT:[Neck is supple.] [No neck masses.] [No thyromegaly.] [No JVD.] Chest: [Symmetrical chest expansion, clear throughout no crackles or rhonchi or wheezes. Small hematoma noted at the site of insertion of the ICD in the left subclavian area. Still present. Cardiac Exam: [Distant S1 and S2, no S3 gallop, 2/6 systolic murmur thought the precordium..] Abdomen: [Soft, nontender, no megaly, no rebound, no guarding, normal bowel sounds.] Extremities: [No clubbing, trace of bipedal edema, no cyanosis.] Neurological Exam: Alert oriented 3 no gross focal deficits. Psychiatric: Normal mood, affect and normal mental status exam Skin: No rashes. - Labs CBC & Chem 7: 03/03/21 05:05 03/03/21 05:05 Labs: Abnormal Lab Results - Last 24 Hours (Table) 03/02/21 03/03/21 03/03/21 Range/Units 15:31 05:05 05:05 WBC 11.5 H (3.8-10.6) k/uL RBC 3.25 L (3.80-5.40) m/uL Hgb 10.1 L (11.4-16.0) gm/dL Hct 28.7 L (34.0-46.0) % Neutrophils # 10.2 H (1.3-7.7) k/uL Lymphocytes # 0.5 L (1.0-4.8) k/uL Sodium 134 L (137-145) mmol/L Potassium 3.2 L (3.5-5.1) mmol/L BUN 23 H (7-17) mg/dL Creatinine 1.22 H (0.52-1.04) mg/dL Glucose 100 H (74-99) mg/dL Total Protein 5.8 L (6.3-8.2) g/dL Albumin 3.2 L (3.5-5.0) g/dL Stool Lactoferrin POSITIVE A (NEGATIVE) Microbiology - Last 24 Hours (Table) 02/28/21 12:23 Stool Culture - Preliminary Stool Assessment and Plan Assessment: Impression: Acute hypoxic respiratory failure secondary to acute systolic congestive heart failure and chronic ischemic LV dysfunction requiring intubation and mechanical ventilation. Resolved. Status post ICD placement for recurrent ventricular tachycardia Ischemic cardiomyopathy and poor LV function. Recurrent ventricular tachycardia Hypokalemia and hypomagnesemia, being treated as per protocol. History of underlying coronary artery disease. Acute kidney injury secondary to ventricular tachycardia and LV dysfunction, improving. Ischemic cardiomyopathy and LV dysfunction Chest wall hematoma, iatrogenic, related to ICD placement. Expected. Chronic diarrhea. Being addressed by gastroenterology on the case Recommendation: Continue present supportive care measures. GI to address her chronic diarrhea. Continue to monitor in the ICU. We'll likely transfer out of the ICU in the next 24 hours. Advanced diet as tolerated. Continue Lasix however may consider cutting down on the dose. Or switched to oral. Follow-up chest x-ray this morning was reviewed. Continue to monitor and adjust electrolytes accordingly. Time with Patient: Less than 30
[2021-03-03 14:45] VITALS: TEMP 98.2
[2021-03-03 16:09] VITALS: BP 105/61; PULSE 58; RESP 12
[2021-03-03] MEDS ORDERED: RX INFO: IV CONTRAST WAS GIVEN 1 EACH MISC MISCELLANE PRN (16:46)
[2021-03-03 16:47] LABS: Glucose,Whole Blood 140 mg/dL (75-99)
[2021-03-03] MEDS ORDERED: EPINEPHrine 10 ML SYRINGE (0.1 MG/ML) ONE (16:49)
[2021-03-03 17:17] LABS: ABG Base Excess 4.9 mmol/L; ABG HCO3 28 mmol/L (21-25); ABG Oxygen Saturation 99.6 % (94-97); ABG PCO2 38 mmHg (35-45); ABG PH 7.49 (7.35-7.45); ABG PO2 188 mmHg (83-108); ABG TCO2 30 mmol/L (19-24); Allen Test Performed? Yes
--- NOTE | 2021-03-03 17:17 | CT ---
EXAMINATION TYPE: CT brain wo con for TPA DATE OF EXAM: 03/03/2021 COMPARISON: None HISTORY: Altered mental status. CT DLP: 1079.8 mGycm Automated exposure control for dose reduction was used. There is cerebral atrophy. There is no mass effect nor midline shift. There is no sign of intracrania l hemorrhage. The calvarium is intact. IMPRESSION: Mild atrophy. No acute intracranial abnormality.
[2021-03-03] MEDS ORDERED: ALTEPLASE BOLUS 6 MG in EMPTY SYRINGE 1 SYR IV STA (17:25)
[2021-03-03] MEDS ORDERED: ALTEPLASE 56 MG in EMPTY BAG 1 BAG IV STA (17:25)
[2021-03-03] MEDS ORDERED: Alteplase PER PHARMACY Stroke 1 EACH MISC MISCELLANE PRN (17:26)
--- NOTE | 2021-03-03 17:36 | CT ---
EXAMINATION TYPE: CODE STROKE: CTA head neck DATE OF EXAM: 03/03/2021 COMPARISON: None HISTORY: Altered mental status. CT DLP: mGycm Automated exposure control for dose reduction was used. CONTRAST: Performed with IV Contrast, patient injected with 65 mL of Isovue 370. There are 3-D post processed images. Images obtained from the aortic arch to the vertex of the brain with IV contrast. There is arterial flow in both subclavian arteries. There is normal branching pattern of the great ve ssels on the aortic arch. There is arterial flow in the common internal and external carotid arteries bilaterally. There is wide patency of the carotid artery bifurcations. There is minimal plaque at th e carotid artery bifurcations. There is arterial flow in both vertebral arteries. There is arterial flow in the vertebrobasilar aurelio ry system. There is no evidence of carotid or vertebral artery aneurysm or dissection. There is arterial flow in the anterior middle and posterior cerebral arteries. There is no mass effec t. There is decreased arterial flow in the right middle cerebral artery at the bifurcation. The Arter y appears to be occluded but there are branches in the sylvian fissure which are opacified with contr ast. I see no aneurysm or neovascularity. IMPRESSION: There is almost complete occlusion of the right middle cerebral artery at the bifurcation. No significant angiographic abnormality in the neck.
--- NOTE | 2021-03-03 17:44 | P.EN ---
A-Team: Code Stroke 1635: Patient was getting from bed to chair and became unresponsive. Vital signs were stable. She was noted to have decreased responsiveness and was noted to have left facial droop. Patient became more responsive and was protecting her airway. She was emergently taken to CT Neuro exam: Uvular deviation to the right, tondue deviation to the left, loss of nassal labial fold on the left, slurred speech, difficuly with word finding, Right PERRL tracking light, left eye with lateral gaze deviation and not responsive or tracking light. Upper extremity: Right: muscle streght 4/4 and pinpoint sensation intact distal and proximal Left: flaccid 0/5 muslce strength, pinpoint sensation not intact Lower extremity Right: no with drawal to pain, unable to lift from bed Left: stength 4/5 and able to localize pinpoint pain. Neglect on the left side. Alert to hospital and year CT head : Negative CTA head and neck: Reviewed with Dr. Burger and need thrombectomy Dr. Walker admitting service notified DX: acute ischemic CVA Transfer line contacted by myself, face sheet faxed TPA started per Interventional Neurology NIH: 34 ABG without abnormality HX V fib with AICD placed 03/01/21 Critical care time 65 minutes.
[2021-03-03] MEDS ORDERED: SODIUM CHLORIDE 0.9% 50 ML MINI-BAG IV ONE (18:25)
--- NOTE | 2021-03-04 09:21 | P.PN ---
Subjective Progress Note Date: 03/03/21 Principal diagnosis: Diarrhea Patient seen lying in bed still reporting some loose stool. Tolerating diet. No signs or symptoms of GI bleeding. Objective - Vital Signs Vital signs: Vital Signs Temp 98.4 F 03/03/21 08:00 Pulse 56 L 03/03/21 11:00 Resp 17 03/03/21 11:00 BP 108/60 03/03/21 11:00 Pulse Ox 99 03/03/21 09:00 Intake & Output 03/02/21 03/03/21 03/03/21 18:59 06:59 18:59 Intake Total 1525.733 30 50 Output Total 2675 1675 555 Balance -1149.267 -1645 -505 Weight 68.1 kg 68.8 kg Intake: IV 110 30 50 0.9 KVO 110 30 50 Intake, IV Titration 305.733 Amount Norepinephrine 4 mg In 105.733 Sodium Chloride 0.9% 250 ml @ 0.05 MCG/KG/MIN 12. 973 mls/hr IV .[id number] [facility] Rx#:[id number] Potassium Chloride 10 meq 200 In Water For Injection 1 100ml.bag @ 100 mls/hr IVPB Q1H [facility] Rx#: [id number] Oral 1110 Output: Urine 2674 8285 555 Other: Voiding Method Indwelling Catheter Indwelling Catheter Indwelling Catheter # Bowel Movements 1 ABP, PAP, CO, CI - Last Documented Arterial Blood Pressure 112/52 - Exam On physical examination, patient appears comfortable in no apparent distress. HEAD: Normocephalic, atraumatic. EYES: No scleral icterus. No conjunctival injection. MOUTH: No lesions, tongue midline. NECK: Trachea midline, no gross abnormalities. ABDOMEN: Soft, nontender to palpation. Bowel sounds are positive. No organomegaly. No guarding or rigidity. EXTREMITIES: No pedal edema. SKIN: No rashes, no jaundice. NEUROLOGIC: Alert and oriented x3. No focal deficits. - Labs CBC & Chem 7: 03/03/21 05:05 03/03/21 15:04 Labs: Abnormal Lab Results - Last 24 Hours (Table) 03/02/21 03/03/21 03/03/21 Range/Units 15:31 05:05 05:05 WBC 11.5 H (3.8-10.6) k/uL RBC 3.25 L (3.80-5.40) m/uL Hgb 10.1 L (11.4-16.0) gm/dL Hct 28.7 L (34.0-46.0) % Neutrophils # 10.2 H (1.3-7.7) k/uL Lymphocytes # 0.5 L (1.0-4.8) k/uL Sodium 134 L (137-145) mmol/L Potassium 3.2 L (3.5-5.1) mmol/L BUN 23 H (7-17) mg/dL Creatinine 1.22 H (0.52-1.04) mg/dL Glucose 100 H (74-99) mg/dL Total Protein 5.8 L (6.3-8.2) g/dL Albumin 3.2 L (3.5-5.0) g/dL Stool Lactoferrin POSITIVE A (NEGATIVE) Microbiology - Last 24 Hours (Table) 02/28/21 12:23 Stool Culture - Preliminary Stool Assessment and Plan (1) Acute diarrhea Narrative/Plan: 75-year-old female who presented to the hospital due to palpitations and syncope found to be in ventricular tachycardia status post AICD placement. Patient is currently being managed in the ICU in association with the cardiology service. Patient has had loose frequent bowel movements since presentation to the hospital. Testing for Clostridium difficile negative. General patient reports she is regular but does report that she has had diarrhea in association with chemotherapy in the past and has used Imodium as needed for treatment. Currently reporting frequent loose bowel movements worsened with eating. No abdominal pain or cramping. Unclear etiology, may be medication related to multiple medical medications, would recommend repeat stool testing to rule out infectious etiology, or other etiology. Repeat testing for C. diff was negative, lactoferrin positive. Status: Acute Code(s): R19.7 - DIARRHEA, UNSPECIFIED SNOMED Code(s): 4099 57097 (2) History of colon cancer Narrative/Plan: Patient reports personal history of colon cancer diagnosed in 2017 status post surgical resection and is subsequently received chemotherapy last treated in 11/2020 as per reports by the patient and her daughter who is seated bedside. Status: Acute Code(s): Z85.038 - PERSONAL HISTORY OF MALIGNANT NEOPLASM OF LARGE INTESTINE SNOMED Code(s): 285490598 Plan: Supportive care Okay for diet as tolerated, extensive discussion with the patient and her family and recommendations for low lactose, low fiber Cholestyramine twice a day added for stool bulking Lomotil 3 times a day as needed for diarrhea added with 1 dose requested Continue to monitor stool output Continue other medical management as per primary team, cardiology and windows server support technician service Thank you for allowing us to participate in the care of the patient
--- NOTE | 2021-03-04 14:56 | P.PN ---
Subjective Progress Note Date: 03/03/21 Valerie Contreras, he is a 75-year-old female who presented to [facility] after having a syncopal episode, patient has a known history of coronary artery disease she recently had cardiac catheterization with stent placement, she was told that she needs coronary artery bypass surgery, however surgeon was waiting for her cardiac function to improve. In the meanwhile patient had a life vest placed on. Patient stated that she felt lightheaded and then had a syncopal episode, apparently patient had a ventricular arrhythmia and her life vest shocked her, EMS were called patient initially was alert and oriented when EMS arrived however he had a second episode of unresponsiveness, and apparently her life vest shocked her again. Patient was brought in to [facility] emergency room, on arrival to emergency room she was alert and oriented 3 in no distress, she denied having any chest pain or shortness of breath, vital examination on presentation revealed a temperature of 97.9 pulse 86 respiration 18 blood pressure 131/49 pulse ox 96% on room air. Laboratory data revealed a white blood count of 10.8 hemoglobin 11.5 platelet count 381 sodium 139 potassium 3.0 chloride 113 CO2 17 BUN 15 creatinine 1.14 glucose 174 troponin level 0.0-4 BNP 4950 COVID-19 PCR was negative , chest x- ray done in the emergency room revealed no acute pulmonary process mild cardiomegaly , first EKG done in the emergency room revealed undetermined rhythm with right bundle branch block and T-wave abnormalities , repeat EKG revealed normal sinus rhythm with right bundle branch block and T-wave abnormality in the anterior and lateral . she was admitted to intensive care unit for further evaluation and treatment. On 02/28/2021 patient alert and oriented 3. Patient currently resting in the intensive care unit. She remains on IV amiodarone. Per cardiology plans for ICD placement. Patient reports she has had diarrhea for the past 6 days which could contribute to her electrolyte imbalance. Patient reports occasional nausea and vomiting. Will order stool for C. diff and stool culture. Continue electrolyte replacement. At this time patient denies chest pain or shortness breath. Patient denies any urinary burning or frequency On 03/01/2021 status post AICD placement patient currently on mechanical ventilation resting comfortably in intensive care unit. Cardiology and pulmonary services following. On 03/02/2021 patient has been extubated to 4 L. GI services have been consulted due to diarrhea 1 week C. diff was negative. WBC elevated at 16.9 Will order UA chest x-ray and blood culture. At the time patient denies any chest pain or shortness of breath. Patient denies nausea vomiting or diarrhea. Patient denies any urinary burning or frequency. On 03/03/2021 patient was seen and examined in the ICU she is alert responsive in no apparent distress she is complaining of abdominal discomfort , and diarrhea she was seen by gastroenterology in that regard stool studies are done, white blood count is 11.5 potassium 3.2 being corrected per protocol BUN 23 creatinine 1.22 , continue was current management will monitor pulmonary critical care are following in ICU Objective - Vital Signs Vital signs: Vital Signs Temp 98.4 F 03/03/21 08:00 Pulse 67 03/03/21 08:00 Resp 14 03/03/21 09:00 BP 120/56 03/03/21 09:00 Pulse Ox 99 03/03/21 09:00 Intake & Output 03/02/21 03/03/21 03/03/21 18:59 06:59 18:59 Intake Total 1525.733 30 30 Output Total 2675 1675 355 Balance -1149.267 -1645 -325 Weight 68.1 kg 68.8 kg Intake: IV 110 30 30 0.9 KVO 110 30 30 Intake, IV Titration 305.733 Amount Norepinephrine 4 mg In 105.733 Sodium Chloride 0.9% 250 ml @ 0.05 MCG/KG/MIN 12. 973 mls/hr IV .[id number] [facility] Rx#:[id number] Potassium Chloride 10 meq 200 In Water For Injection 1 100ml.bag @ 100 mls/hr IVPB Q1H [facility] Rx#: [id number] Oral 1110 Output: Urine 2675 1675 355 Other: Voiding Method Indwelling Catheter Indwelling Catheter Indwelling Catheter # Bowel Movements 1 ABP, PAP, CO, CI - Last Documented Arterial Blood Pressure 112/52 - Exam In general patient is alert and oriented x3 in no distress HEENT head normocephalic and atraumatic Neck is supple no JVD no goiter no lymphadenopathy no carotid bruit Chest examination is clear to auscultation no crackles no wheezing Cardiac exam reveals regular heart sounds S1 and S2 no gallops no murmurs Abdomen is soft nontender no organomegaly with normal bowel sounds Extremity exam reveals no edema no cyanosis or clubbing Neurological examination reveals no gross focal deficits - Labs CBC & Chem 7: 03/03/21 05:05 03/03/21 15:04 Labs: Abnormal Lab Results - Last 24 Hours (Table) 03/02/21 03/03/21 03/03/21 Range/Units 15:31 05:05 05:05 WBC 11.5 H (3.8-10.6) k/uL RBC 3.25 L (3.80-5.40) m/uL Hgb 10.1 L (11.4-16.0) gm/dL Hct 28.7 L (34.0-46.0) % Neutrophils # 10.2 H (1.3-7.7) k/uL Lymphocytes # 0.5 L (1.0-4.8) k/uL Sodium 134 L (137-145) mmol/L Potassium 3.2 L (3.5-5.1) mmol/L BUN 23 H (7-17) mg/dL Creatinine 1.22 H (0.52-1.04) mg/dL Glucose 100 H (74-99) mg/dL Total Protein 5.8 L (6.3-8.2) g/dL Albumin 3.2 L (3.5-5.0) g/dL Stool Lactoferrin POSITIVE A (NEGATIVE) Microbiology - Last 24 Hours (Table) 02/28/21 12:23 Stool Culture - Preliminary Stool Assessment and Plan Plan: Episodes of ventricular tachycardia, with syncope and loss of consciousness. Status post AICD placement Underlying history of ischemic cardiomyopathy. 2-D echo completed showing an EF of 25-30% Hypokalemia and hypomagnesemia Acute kidney injury Underlying history of hypertension Underlying history of hyperlipidemia Underlying history of coronary artery disease with recent angioplasty and stent placement Diarrhea. Stool for C. diff and stool culture ordered. Stool culture negative. GI service is consulted Elevated white blood cell count. Chest x-ray, blood culture and urinary analysis ordered Cardiology and critical care service is following Status post AICD placement on 03/01/2021 Stool for C. diff and stool cultures ordered replace electrolytes per protocol
--- NOTE | 2021-03-04 15:02 | P.DS ---
Providers Date of admission: 02/27/21 13:22 Expected date of discharge: 03/04/21 Attending physician: Ritu Walker Consults: 02/27/21 13:06 Consult Physician Stat Consulting Provider: Clary Nice Consult Reason/Comments: VTach Do you want consulting provider notified?: Already Contacted 02/27/21 13:22 Consult Physician Stat Consulting Provider: Suzie Azul Consult Reason/Comments: ICU management, VTach Do you want consulting provider notified?: Already Contacted 03/02/21 09:09 Consult Physician Routine Consulting Provider: Hyacinth Easton Consult Reason/Comments: lasting diarrhea X1 week, negative cdiff Do you want consulting provider notified?: Yes Primary care physician: Crystal [facility] Course: Diagnosis on discharge: Episodes of ventricular tachycardia, with syncope and loss of consciousness. Status post AICD placement Underlying history of ischemic cardiomyopathy. 2-D echo completed showing an EF of 25-30% Hypokalemia and hypomagnesemia Acute kidney injury Underlying history of hypertension Underlying history of hyperlipidemia Underlying history of coronary artery disease with recent angioplasty and stent placement Diarrhea. Stool for C. diff and stool culture ordered. Stool culture negative. GI service is consulted Elevated white blood cell count. Chest x-ray, blood culture and urinary analysis ordered Evidence of stroke on 03/03/2021 patient became and responsive, CT angiogram revealed almost complete occlusion of the right middle cerebral artery at the bifurcation, patient was transferred emergently to a tertiary care center Hospital course: Valerie Contreras, he is a 75-year-old female who presented to [facility] after having a syncopal episode, patient has a known history of coronary artery disease she recently had cardiac catheterization with stent placement, she was told that she needs coronary artery bypass surgery, however surgeon was waiting for her cardiac function to improve. In the meanwhile patient had a life vest placed on. Patient stated that she felt lightheaded and then had a syncopal episode, apparently patient had a ventricular arrhythmia and her life vest shocked her, EMS were called patient initially was alert and oriented when EMS arrived however he had a second episode of unresponsiveness, and apparently her life vest shocked her again. Patient was brought in to [facility] emergency room, on arrival to emergency room she was alert and oriented 3 in no distress, she denied having any chest pain or shortness of breath, vital examination on presentation revealed a temperature of 97.9 pulse 86 respiration 18 blood pressure 131/49 pulse ox 96% on room air. Laboratory data revealed a white blood count of 10.8 hemoglobin 11.5 platelet count 381 sodium 139 potassium 3.0 chloride 113 CO2 17 BUN 15 creatinine 1.14 glucose 174 troponin level 0.0-4 BNP 4950 COVID-19 PCR was negative , chest x- ray done in the emergency room revealed no acute pulmonary process mild cardiomegaly , first EKG done in the emergency room revealed undetermined rhythm with right bundle branch block and T-wave abnormalities , repeat EKG revealed normal sinus rhythm with right bundle branch block and T-wave abnormality in the anterior and lateral . she was admitted to intensive care unit for further evaluation and treatment. On 02/28/2021 patient alert and oriented 3. Patient currently resting in the intensive care unit. She remains on IV amiodarone. Per cardiology plans for ICD placement. Patient reports she has had diarrhea for the past 6 days which could contribute to her electrolyte imbalance. Patient reports occasional nausea and vomiting. Will order stool for C. diff and stool culture. Continue electrolyte replacement. At this time patient denies chest pain or shortness breath. Patient denies any urinary burning or frequency On 03/01/2021 status post AICD placement patient currently on mechanical ventilation resting comfortably in intensive care unit. Cardiology and pulmonary services following. On 03/02/2021 patient has been extubated to 4 L. GI services have been consulted due to diarrhea 1 week C. diff was negative. WBC elevated at 16.9 Will order UA chest x-ray and blood culture. At the time patient denies any chest pain or shortness of breath. Patient denies nausea vomiting or diarrhea. Patient denies any urinary burning or frequency. On 03/03/2021 patient was seen and examined in the ICU she is alert responsive in no apparent distress she is complaining of abdominal discomfort , and diarrhea she was seen by gastroenterology in that regard stool studies are done, white blood count is 11.5 potassium 3.2 being corrected per protocol BUN 23 creatinine 1.22 , continue was current management will monitor pulmonary critical care are following in ICU On 03/03/2021 patient was weaned transferred from her bed to her chair and became suddenly and responsive, code stroke was done at 16:35 CT angiogram of the brain revealed almost complete occlusion of the right middle cerebral artery patient was transferred immediately. Patient Condition at Discharge: Critical Plan - Discharge Summary New Discharge Prescriptions: No Action Loteprednol Etabonate [Inveltys] 1 drop RIGHT EYE DAILY Loperamide [Imodium] 2 mg PO QID PRN PRN Reason: Loose Stool Melatonin 3 mg PO HS PRN PRN Reason: Insomnia Brimonidine Tartrate/Timolol [Combigan 0.2%-0.5% Eye Drops] 1 drop LEFT EYE BID Bimatoprost [Lumigan .01% Ophth Soln] 1 drop LEFT EYE HS Ticagrelor [Brilinta] 90 mg PO BID amLODIPine [Norvasc] 10 mg PO DAILY Aspirin EC [Ecotrin Low Dose] 81 mg PO DAILY Pravastatin Sodium [Pravachol] 80 mg PO HS Pantoprazole Sodium [Protonix] 40 mg PO DAILY Metoprolol Succinate [Toprol XL] 25 mg PO DAILY lisinopriL 40 mg PO DAILY Discharge Medication List Aspirin EC [Ecotrin Low Dose] 81 mg PO DAILY 02/27/21 [History] Bimatoprost [Lumigan .01% Ophth Soln] 1 drop LEFT EYE HS 02/27/21 [History] Brimonidine Tartrate/Timolol [Combigan 0.2%-0.5% Eye Drops] 1 drop LEFT EYE BID 02/27/21 [History] Loperamide [Imodium] 2 mg PO QID PRN 02/27/21 [History] Loteprednol Etabonate [Inveltys] 1 drop RIGHT EYE DAILY 02/27/21 [History] Melatonin 3 mg PO HS PRN 02/27/21 [History] Metoprolol Succinate [Toprol XL] 25 mg PO DAILY 02/27/21 [History] Pantoprazole Sodium [Protonix] 40 mg PO DAILY 02/27/21 [History] Pravastatin Sodium [Pravachol] 80 mg PO HS 02/27/21 [History] Ticagrelor [Brilinta] 90 mg PO BID 02/27/21 [History] amLODIPine [Norvasc] 10 mg PO DAILY 02/27/21 [History] lisinopriL 40 mg PO DAILY 02/27/21 [History] Follow up Appointment(s)/Referral(s): [facility], [NON-STAFF] - (Contact home care agency after appointment with primary care physician so you can be seen.) Clary Nice MD [STAFF PHYSICIAN] - 2 Weeks Crystal Cifuentes MD [Primary Care Provider] - 1-2 Days
== END 2021-03-03 17:55 | disposition short-term general hospital (02) | DRG 226 ==
LOC: SUPCPDRO 12:10 → EC 12:10 → 2SICU 13:22
PROVIDERS: ADMIT Internal Medicine; ATTEND Internal Medicine
PROC: 02HL3KZ Insertion of Defibrillator Lead into Left Ventricle, Percutaneous Approach (ICD-10-PCS; 2021-03-01)
PROC: 03HY32Z Insertion of Monitoring Device into Upper Artery, Percutaneous Approach (ICD-10-PCS; 2021-03-01)
PROC: 4A133B1 Monitoring of Arterial Pressure, Peripheral, Percutaneous Approach (ICD-10-PCS; 2021-03-01)
PROC: 4A133J1 Monitoring of Arterial Pulse, Peripheral, Percutaneous Approach (ICD-10-PCS; 2021-03-01)
PROC: 3E033XZ Introduction of Vasopressor into Peripheral Vein, Percutaneous Approach (ICD-10-PCS; 2021-03-01)
PROC: 5A09357 Assistance with Respiratory Ventilation, Less than 24 Consecutive Hours, Continuous Positive Airway Pressure (ICD-10-PCS; 2021-03-01)
PROC: 5A0945A Assistance with Respiratory Ventilation, 24-96 Consecutive Hours, High Flow/Velocity Cannula (ICD-10-PCS; 2021-03-01)
PROC: 0JH609Z Insertion of Cardiac Resynchronization Defibrillator Pulse Generator into Chest Subcutaneous Tissue and Fascia, Open Approach (ICD-10-PCS; principal; 2021-03-01 07:30)
PROC: 3E03317 Introduction of Other Thrombolytic into Peripheral Vein, Percutaneous Approach (ICD-10-PCS; 2021-03-03)
DX: I47.2 Ventricular tachycardia (principal); I50.23 Acute on chronic systolic (congestive) heart failure; J96.01 Acute respiratory failure with hypoxia; I63.511 Cerebral infarction due to unspecified occlusion or stenosis of right middle cerebral artery; N17.9 Acute kidney failure, unspecified; R55 Syncope and collapse; I25.5 Ischemic cardiomyopathy; E83.42 Hypomagnesemia; E87.6 Hypokalemia; I25.10 Atherosclerotic heart disease of native coronary artery without angina pectoris; Z20.822 Contact with and (suspected) exposure to COVID-19; Z95.5 Presence of coronary angioplasty implant and graft; E78.5 Hyperlipidemia, unspecified; I11.0 Hypertensive heart disease with heart failure; R19.7 Diarrhea, unspecified; Z85.038 Personal history of other malignant neoplasm of large intestine; Z79.82 Long term (current) use of aspirin; I25.2 Old myocardial infarction; Z85.118 Personal history of other malignant neoplasm of bronchus and lung; Z90.49 Acquired absence of other specified parts of digestive tract; Z79.02 Long term (current) use of antithrombotics/antiplatelets; Z92.21 Personal history of antineoplastic chemotherapy; I49.3 Ventricular premature depolarization; Z79.899 Other long term (current) drug therapy; S20.219A Contusion of unspecified front wall of thorax, initial encounter; Y83.8 Other surgical procedures as the cause of abnormal reaction of the patient, or of later complication, without mention of misadventure at the time of the procedure; Y92.239 Unspecified place in hospital as the place of occurrence of the external cause; R29.734 NIHSS score 34
CPT/HCPCS: 33249; 36410; 36415; 36600; 70450; 70496; 70498; 71045; 76937; 80053; 81003; 82805; 83630; 83735; 83880; 84132; 84484; 85025; 85610; 85730; 87045; 87046; 87324; 87635; 93005; 93306; 94002; 94660; 96365; 96372; 96375; 99291

== ENCOUNTER 2021-04-03 00:55 | Inpatient (IN) | payer MEDICARE ==
--- NOTE | 2021-04-03 01:03 | ED ---
Weakness HPI - General Stated complaint: SOB Time Seen by Provider: 04/03/21 01:02 Source: RN notes reviewed, old records reviewed, Caregiver Mode of arrival: EMS Limitations: physical limitation - History of Present Illness Initial comments: This is a 75-year-old female DF for evaluation. Patient is safe for evaluation regarding severe shortness of breath no recent travel history or sick contacts. Patient has weakness. No recent hospitalizations. No fevers. Patient states she is not cannot catch her breath. No chest pain. MD Complaint: generalized weakness, lack of energy (SOB) -: hour(s) Location: generalized Severity: severe Severity scale (1-10): 10 Consistency: constant Improves with: none Worsens with: none Context: recent illness Associated Symptoms: shortness of breath - Related Data Home Medications Medication Instructions Recorded Confirmed Bimatoprost [Lumigan .01% Ophth 1 drop LEFT EYE HS 02/27/21 04/03/21 Soln] Brimonidine Tartrate/Timolol 1 drop LEFT EYE BID 02/27/21 04/03/21 [Combigan 0.2%-0.5% Eye Drops] Loperamide [Imodium] 2 mg PO QID PRN 02/27/21 04/03/21 Loteprednol Etabonate [Inveltys] 1 drop RIGHT EYE DAILY 02/27/21 04/03/21 Melatonin 3 mg PO HS PRN 02/27/21 04/03/21 Metoprolol Succinate [Toprol XL] 25 mg PO DAILY 02/27/21 04/03/21 Pantoprazole Sodium [Protonix] 40 mg PO DAILY 02/27/21 04/03/21 Pravastatin Sodium [Pravachol] 80 mg PO HS 02/27/21 04/03/21 Ticagrelor [Brilinta] 90 mg PO BID 02/27/21 04/03/21 Apixaban [Eliquis] 5 mg PO BID 04/03/21 04/03/21 lisinopriL [Zestril] 2.5 mg PO DAILY 04/03/21 04/03/21 Previous Rx's Medication Instructions Recorded Amiodarone [Cordarone] 200 mg PO Q12HR 30 Days #60 tab 04/04/21 Furosemide [Lasix] 40 mg PO DAILY 30 Days #30 tab 04/04/21 Allergies Allergy/AdvReac Type Severity Reaction Status Date / Time morphine AdvReac Nausea & Verified 04/03/21 06:58 Vomiting Review of Systems ROS Statement: Those systems with pertinent positive or pertinent negative responses have been documented in the HPI. ROS Other: All systems not noted in ROS Statement are negative. Past Medical History Past Medical History: Cancer, Chest Pain / Angina Additional Past Medical History / Comment(s): Colon. Last Myocardial Infarction Date:: 12/15/20 History of Any Multi-Drug Resistant Organisms: None Reported Past Surgical History: Heart Catheterization, Heart Catheterization With Stent Additional Past Surgical History / Comment(s): CHOLECYSTECTOMY 10/2016, GLAUCOMA, CATARACTS SURG RIGHT EYE 12/13/20 Past Anesthesia/Blood Transfusion Reactions: Postoperative Nausea & Vomiting (PONV) Date of Last Stent Placement:: 12/13/2020 2 STENTS PLACED "FRONT". Past Psychological History: No Psychological Hx Reported Smoking Status: Never smoker Past Alcohol Use History: Occasional Past Drug Use History: None Reported General Exam General appearance: alert, in no apparent distress, anxious, in distress Head exam: Present: atraumatic, normocephalic, normal inspection Eye exam: Present: normal appearance, PERRL, EOMI. Absent: scleral icterus, conjunctival injection, periorbital swelling ENT exam: Present: normal exam, mucous membranes moist Neck exam: Present: normal inspection. Absent: tenderness, meningismus, lymphadenopathy Respiratory exam: Present: respiratory distress, wheezes, rhonchi, decreased breath sounds, prolonged expiratory. Absent: rales, stridor Cardiovascular Exam: Present: regular rate, normal rhythm, normal heart sounds. Absent: systolic murmur, diastolic murmur, rubs, gallop, clicks GI/Abdominal exam: Present: soft, normal bowel sounds. Absent: distended, tenderness, guarding, rebound, rigid Extremities exam: Present: normal inspection, full ROM, normal capillary refill. Absent: tenderness, pedal edema, joint swelling, calf tenderness Back exam: Present: normal inspection Neurological exam: Present: alert, oriented X3, CN II-XII intact Psychiatric exam: Present: normal affect, normal mood Skin exam: Present: warm, dry, intact, normal color. Absent: rash Course Vital Signs 04/03/21 04/03/21 04/03/21 00:56 01:13 01:25 Temperature 97.8 F Pulse Rate 83 72 Respiratory 24 26 H Rate Blood Pressure 180/99 O2 Sat by Pulse 84 L Oximetry 04/03/21 04/03/21 04/03/21 01:49 02:05 04:20 Temperature Pulse Rate 73 64 78 Respiratory 24 18 18 Rate Blood Pressure 128/64 148/92 O2 Sat by Pulse 94 L 96 Oximetry 04/03/21 04/03/21 04/03/21 07:42 07:58 08:05 Temperature Pulse Rate 60 60 Respiratory Rate Blood Pressure O2 Sat by Pulse 100 Oximetry 04/03/21 04/03/21 04/03/21 11:00 12:17 12:26 Temperature 98.7 F 98.7 F Pulse Rate 70 70 60 Respiratory 20 20 Rate Blood Pressure 139/70 139/70 O2 Sat by Pulse 100 100 Oximetry 04/03/21 12:40 Temperature Pulse Rate 58 L Respiratory Rate Blood Pressure O2 Sat by Pulse Oximetry - Reevaluation(s) Reevaluation #1: Medical records reviewed Patient symptoms are improved significantly here in the ER Patient remains a mild rust for a stress Patient informed of results and questions answered EKG Findings - EKG Comments: EKG Findings:: EKG is sinus rhythm 74, [place] 200 QRS 162 QTC 506 Medical Decision Making - Medical Decision Making 75 female DF for evaluation. Patient has history of heart lung disease. Patient coming in for CHF COPD hypoxia. Patient be admitted for supportive care. - Lab Data Result diagrams: 04/04/21 07:13 04/04/21 07:13 Lab Results 04/03/21 04/03/21 04/03/21 Range/Units 01:46 01:46 01:46 WBC 14.8 H (3.8-10.6) k/uL RBC 4.33 (3.80-5.40) m/uL Hgb 13.1 D (11.4-16.0) gm/dL Hct 38.9 (34.0-46.0) % MCV 89.8 (80.0-100.0) fL MCH 30.3 (25.0-35.0) pg MCHC 33.7 (31.0-37.0) g/dL RDW 16.2 H (11.5-15.5) % Plt Count 319 (150-450) k/uL MPV 8.4 Neutrophils % 92 % Lymphocytes % 3 % Monocytes % 2 % Eosinophils % 2 % Basophils % 1 % Neutrophils # 13.6 H (1.3-7.7) k/uL Lymphocytes # 0.4 L (1.0-4.8) k/uL Monocytes # 0.3 (0-1.0) k/uL Eosinophils # 0.4 (0-0.7) k/uL Basophils # 0.1 (0-0.2) k/uL Anisocytosis Slight PT 13.6 H (9.0-12.0) sec INR 1.3 H (<1.2) APTT 26.2 (22.0-30.0) sec Sodium 138 (137-145) mmol/L Potassium 3.5 (3.5-5.1) mmol/L Chloride 107 (98-107) mmol/L Carbon Dioxide 21 L (22-30) mmol/L Anion Gap 10 mmol/L BUN 14 (7-17) mg/dL Creatinine 0.94 (0.52-1.04) mg/dL Est GFR (CKD-EPI)AfAm 68 (>60 ml/min/1.73 sqM) Est GFR (CKD-EPI)NonAf 59 (>60 ml/min/1.73 sqM) Glucose 153 H (74-99) mg/dL Calcium 9.5 (8.4-10.2) mg/dL Phosphorus 3.8 (2.5-4.5) mg/dL Magnesium 1.5 L (1.6-2.3) mg/dL Total Bilirubin 0.9 (0.2-1.3) mg/dL AST 28 (14-36) U/L ALT 19 (4-34) U/L Alkaline Phosphatase 79 (38-126) U/L Creatine Kinase 43 (30-135) U/L CK-MB (CK-2) (0.0-2.4) ng/mL Troponin I (0.000-0.034) ng/mL NT-Pro-B Natriuret Pep pg/mL Total Protein 6.7 (6.3-8.2) g/dL Albumin 4.2 (3.5-5.0) g/dL 04/03/21 04/03/21 Range/Units 01:46 01:46 WBC (3.8-10.6) k/uL RBC (3.80-5.40) m/uL Hgb (11.4-16.0) gm/dL Hct (34.0-46.0) % MCV (80.0-100.0) fL MCH (25.0-35.0) pg MCHC (31.0-37.0) g/dL RDW (11.5-15.5) % Plt Count (150-450) k/uL MPV Neutrophils % % Lymphocytes % % Monocytes % % Eosinophils % % Basophils % % Neutrophils # (1.3-7.7) k/uL Lymphocytes # (1.0-4.8) k/uL Monocytes # (0-1.0) k/uL Eosinophils # (0-0.7) k/uL Basophils # (0-0.2) k/uL Anisocytosis PT (9.0-12.0) sec INR (<1.2) APTT (22.0-30.0) sec Sodium (137-145) mmol/L Potassium (3.5-5.1) mmol/L Chloride (98-107) mmol/L Carbon Dioxide (22-30) mmol/L Anion Gap mmol/L BUN (7-17) mg/dL Creatinine (0.52-1.04) mg/dL Est GFR (CKD-EPI)AfAm (>60 ml/min/1.73 sqM) Est GFR (CKD-EPI)NonAf (>60 ml/min/1.73 sqM) Glucose (74-99) mg/dL Calcium (8.4-10.2) mg/dL Phosphorus (2.5-4.5) mg/dL Magnesium (1.6-2.3) mg/dL Total Bilirubin (0.2-1.3) mg/dL AST (14-36) U/L ALT (4-34) U/L Alkaline Phosphatase (38-126) U/L Creatine Kinase (30-135) U/L CK-MB (CK-2) 1.1 (0.0-2.4) ng/mL Troponin I 0.054 H* (0.000-0.034) ng/mL NT-Pro-B Natriuret Pep 9370 pg/mL Total Protein (6.3-8.2) g/dL Albumin (3.5-5.0) g/dL - Radiology Data Radiology results: report reviewed (Chest x-rays positive for pulmonary edema), image reviewed Critical Care Time Critical Care Time: Yes Total Critical Care Time: 31 Disposition Clinical Impression: Congestive heart failure, Acute pulmonary edema, Acute exacerbation of chronic obstructive pulmonary disease, Hypoxia Disposition: ADMITTED IP TO THIS HOSP Condition: Serious Is patient prescribed a controlled substance at d/c from ED?: No
[2021-04-03] MEDS ORDERED: ENALAPRILAT 1.25 MG/ML 1 ML VIAL IVP STA (01:09)
[2021-04-03] MEDS ORDERED: IPRATROPIUM-ALBUTEROL 3 ML NEB INHALATION STA (01:09)
--- NOTE | 2021-04-03 01:33 | XR ---
EXAMINATION TYPE: XR chest 1V portable DATE OF EXAM: 04/03/2021 COMPARISON: 03/03/2021 HISTORY: Short of breath TECHNIQUE: FINDINGS: There is pulmonary interstitial and airspace edema. There is left axillary pacemaker. Heart appears slightly enlarged. There is right central venous catheter with tip in the superior vena cava .. IMPRESSION: There is new pulmonary edema compared to old exam and consistent with acute heart failure .
[2021-04-03 02:03] LABS: Anisocytosis Slight; Basophils # (A) 0.1 k/uL (0-0.2); Basophils % (A) 1 %; Eosinophils # (A) 0.4 k/uL (0-0.7); Eosinophils % (A) 2 %; HCT 38.9 % (34.0-46.0); Lymphocytes # (A) 0.4 k/uL (1.0-4.8); Lymphocytes % (A) 3 %; MCH 30.3 pg (25.0-35.0); MCHC 33.7 g/dL (31.0-37.0); MCV 89.8 fL (80.0-100.0); Mean Platelet Volume 8.4; Monocytes # (A) 0.3 k/uL (0-1.0); Monocytes % (A) 2 %; Neutrophils # (A) 13.6 k/uL (1.3-7.7); Neutrophils % (A) 92 %; Platelet Count 319 k/uL (150-450); RBC 4.33 m/uL (3.80-5.40); RDW 16.2 % (11.5-15.5); WBC 14.8 k/uL (3.8-10.6)
[2021-04-03 02:09] LABS: HGB 13.1 gm/dL (11.4-16.0)
[2021-04-03 02:13] LABS: INR 1.3 (<1.2); Partial Thromboplastin Time 26.2 sec (22.0-30.0); Prothrombin Time 13.6 sec (9.0-12.0)
[2021-04-03 02:21] LABS: Albumin 4.2 g/dL (3.5-5.0); Calcium 9.5 mg/dL (8.4-10.2); Magnesium 1.5 mg/dL (1.6-2.3); Phosphorus 3.8 mg/dL (2.5-4.5); Potassium 3.5 mmol/L (3.5-5.1); Total Bilirubin 0.9 mg/dL (0.2-1.3); Total Protein 6.7 g/dL (6.3-8.2)
[2021-04-03 02:32] LABS: Creatine Kinase MB 1.1 ng/mL (0.0-2.4)
[2021-04-03 03:35] LABS: Troponin I 0.054 ng/mL (0.000-0.034)
[2021-04-03] MEDS: FUROSEMIDE 10 MG/ML 4 ML VIAL IV SCH ×3 (03:50→18:57)
[2021-04-03] MEDS: methylPREDNISolone SOD SUCCI 125 MG/2 ML VIAL IV SCH ×2 (06:30→11:58)
[2021-04-03] MEDS: ALBUTEROL NEBULIZED 2.5 MG/3 ML INHALATION SCH ×4 (07:38→19:01)
[2021-04-03] MEDS ORDERED: MELATONIN 3 MG TABLET PO PRN (12:11)
[2021-04-03] MEDS ORDERED: LOPERAMIDE 2 MG CAP PO PRN (12:11)
[2021-04-03] MEDS ORDERED: AMIODARONE 200 MG TAB PO SCH ×2 (12:15→16:00)
[2021-04-03] MEDS ORDERED: POTASSIUM CHLORIDE ER 20 MEQ TAB.ER PO STA (13:33)
--- NOTE | 2021-04-03 14:03 | P.CNPUL ---
History of Present Illness Consult date: 04/03/21 Reason for consult: dyspnea History of present illness: This is a 75-year-old female patient who is coming to the hospital after a recent hospitalization in early February where the patient was admitted for complications of heart disease, recurrent V. tach and acute kidney injury secondary to CHF and LV dysfunction and ischemic cardiomyopathy. The patient at that time was taken care of by our service in the intensive care unit. Electrolytes were adjusted. Patient was treated with amiodarone. Given a AICD and discharged home. She is known to have coronary artery disease, previous KS, previous coronary stenting 2, and during her stay in [place] she was given a LifeVest after undergoing a cardiac intervention stent placement. She is known to have severe LV dysfunction systolic heart failure. The echocardiogram back then that was done on 02/27/2021 showed a level is good ejection fraction of 25- 30%, no pericardial effusion, no significant valvular abnormalities. The patient had mild concentric LVH. My understanding is that the patient also needed coronary artery bypass surgery and she was being looked into the surgery after some further stabilization of her cardiac status. 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 She is able to move all extremities without any major difficulties. The patient came into the emergency department yesterday because of worsening shortness of breath. This happened around midnight yesterday. No reported chest pain. No syncope. No angina. No swelling in lower extremities. She came into the hospital and a chest x-ray was consistent with pulmonary edema. She was placed on BiPAP. She was placed on oxygen. She was given Lasix in the emergency department. Immediately following that her breathing improved. At the time of my evaluation, her cardiac rhythm is sinus. She is breathing normally. Her breathing is nonlabored. She has diuresed adequately. Her EKG showing a normal sinus rhythm and there is a bundle-branch block pattern on her EKG. Blood work showed troponin leak with elevation of the troponins in the order of 0.05 and 0.07 and 0.05 respectively 3. The proBNP level was 9317. Renal function was stable with a creatinine of 0.9. Coagulation profile was normal. White cell count was at 14.8. Review of Systems Constitutional: Denies chills, Denies fever Eyes: denies as per HPI, denies blurred vision, denies bulging eye, denies decreased vision, denies diplopia, denies discharge, denies dry eye, denies irritation, denies itching, denies pain, denies photophobia, denies loss of peripheral vision, denies loss of vision, denies tunnel vision/blind spots Ears: deny: decreased hearing, ear discharge, earache, tinnitus Ears, nose, mouth and throat: Reports as per HPI Breasts: absent: as per HPI, change in shape, gynecomastia, masses, nipple discharge, pain, skin changes, swelling Cardiovascular: Reports decreased exercise tolerance, Reports dyspnea on exertion, Reports shortness of breath Respiratory: Reports as per HPI, Reports dyspnea Gastrointestinal: Reports as per HPI Genitourinary: Reports as per HPI Menstruation: Reports as per HPI Musculoskeletal: Reports as per HPI Musculoskeletal: absent: ankle pain, ankle stiffness, ankle swelling Integumentary: Reports as per HPI Neurological: Reports as per HPI Psychiatric: Reports as per HPI Endocrine: Reports as per HPI Hematologic/Lymphatic: Reports as per HPI Allergic/Immunologic: Reports as per HPI Past Medical History Past Medical History: Coronary Artery Disease (CAD), Cancer Additional Past Medical History / Comment(s): Imaging cardiomyopathy with ejection fraction of 25-30%, hypertension, hyperlipidemia, coronary artery disease with previous coronary stenting, 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 Last Myocardial Infarction Date:: 12/15/20 History of Any Multi-Drug Resistant Organisms: None Reported Past Surgical History: Heart Catheterization, Heart Catheterization With Stent Additional Past Surgical History / Comment(s): CHOLECYSTECTOMY 10/2016, GLAUCOMA, CATARACTS SURG RIGHT EYE 12/13/20 Past Anesthesia/Blood Transfusion Reactions: Postoperative Nausea & Vomiting (PONV) Date of Last Stent Placement:: 12/13/2020 2 STENTS PLACED "FRONT". Past Psychological History: No Psychological Hx Reported Smoking Status: Never smoker Past Alcohol Use History: Occasional Past Drug Use History: None Reported Medications and Allergies Home Medications Medication Instructions Recorded Confirmed Type Bimatoprost [Lumigan .01% Ophth 1 drop LEFT EYE HS 02/27/21 04/03/21 History Soln] Brimonidine Tartrate/Timolol 1 drop LEFT EYE BID 02/27/21 04/03/21 History [Combigan 0.2%-0.5% Eye Drops] Loperamide [Imodium] 2 mg PO QID PRN 02/27/21 04/03/21 History Loteprednol Etabonate [Inveltys] 1 drop RIGHT EYE DAILY 02/27/21 04/03/21 History Melatonin 3 mg PO HS PRN 02/27/21 04/03/21 History Metoprolol Succinate [Toprol XL] 25 mg PO DAILY 02/27/21 04/03/21 History Pantoprazole Sodium [Protonix] 40 mg PO DAILY 02/27/21 04/03/21 History Pravastatin Sodium [Pravachol] 80 mg PO HS 02/27/21 04/03/21 History Ticagrelor [Brilinta] 90 mg PO BID 02/27/21 04/03/21 History Amiodarone [Cordarone] 400 mg PO Q12H 04/03/21 04/03/21 History Apixaban [Eliquis] 5 mg PO BID 04/03/21 04/03/21 History lisinopriL [Zestril] 2.5 mg PO DAILY 04/03/21 04/03/21 History Allergies Allergy/AdvReac Type Severity Reaction Status Date / Time morphine AdvReac Nausea & Verified 04/03/21 06:58 Vomiting Physical Exam Vitals: Vital Signs Temp Pulse Resp BP Pulse Ox 04/03/21 12:40 58 L 04/03/21 12:26 60 04/03/21 12:17 98.7 F 70 20 139/70 100 04/03/21 11:00 98.7 F 70 20 139/70 100 04/03/21 08:05 100 04/03/21 07:58 60 04/03/21 07:42 60 04/03/21 04:20 78 18 148/92 96 04/03/21 02:05 64 18 128/64 94 L 04/03/21 01:49 73 24 04/03/21 01:25 180/99 04/03/21 01:13 72 26 H 04/03/21 00:56 97.8 F 83 24 84 L Intake and Output 04/02/21 04/03/21 04/03/21 22:59 06:59 14:59 Other: Weight 61.689 kg Physical Exam: Revealed a 75-year-old female, in no distress on RA , eating is nonlabored and the patient is calm and comfortable. Head: Atraumatic, normocephalic. HEENT:[Neck is supple.] [No neck masses.] [No thyromegaly.] [No JVD.] Chest: [Symmetrical chest expansion, clear throughout no crackles or rhonchi or wheezes. Small hematoma noted at the site of insertion of the ICD in the left subclavian area. Still present. The patient has a pacemaker/defibrillator pocket over the left anterior chest area. Cardiac Exam: [Distant S1 and S2, no S3 gallop, 2/6 systolic murmur thought the precordium..] Abdomen: [Soft, nontender, no megaly, no rebound, no guarding, normal bowel sounds.] Extremities: [No clubbing, trace of bipedal edema, no cyanosis.] Neurological Exam: Alert oriented 3 no gross focal deficits. Psychiatric: Normal mood, affect and normal mental status exam Skin: No rashes. Results - Laboratory Findings CBC and BMP: 04/03/21 01:46 04/03/21 01:46 PT/INR, D-dimer PT 13.6 sec (9.0-12.0) H 04/03/21 01:46 INR 1.3 (<1.2) H 04/03/21 01:46 Abnormal lab findings: Abnormal Labs 04/03/21 04/03/21 04/03/21 01:46 01:46 01:46 WBC 14.8 H RDW 16.2 H Neutrophils # 13.6 H Lymphocytes # 0.4 L PT 13.6 H INR 1.3 H Carbon Dioxide 21 L Glucose 153 H Magnesium 1.5 L Troponin I 04/03/21 04/03/21 04/03/21 01:46 03:47 07:54 WBC RDW Neutrophils # Lymphocytes # PT INR Carbon Dioxide Glucose Magnesium Troponin I 0.054 H* 0.072 H* 0.058 H* - Diagnostic Findings Chest x-ray: image reviewed Assessment and Plan Plan: 1 acute pulmonary edema with secondary shortness of breath. The patient's presentation is typical with CHF and pulmonary edema and the proBNP is elevated and the patient responded nicely to diuretics and the patient is currently off the BiPAP and off oxygen currently on room air oxygen. 2 CHF with an underlying ischemic cardiomyopathy with an ejection fraction of 20-25% 3 coronary artery disease, please refer to previous cardiology evaluations in this regard. The patient undergone previous coronary stenting that was done in [place]. 4 history of ventricular tachycardia, episodic, post-AICD placement and cur rently she is on amiodarone 5 hypertension 6 hyperlipidemia 7 history of colon cancer post-colectomy and followed by systemic chemotherapy 8 history of CVA requiring immediate vascular intervention and removal of clot along the right MCA distribution without any neurologic deficits Plan Continue Lasix at a dose of 40 mg every 8 hours. Patient is responding. Monitor fluid balance. Monitor electrolytes. Oxidation is improved. Repeat chest x-ray in the morning. Resume home medications. Continue to coagulation with Eliquis 5 mg by mouth twice a day. Continue [place] top. Continue ami odarone 200 mg every 12 hours. Cardiology consultation. No need for systemic steroids and this will be discontinued. No need for BiPAP and this will be discontinued. We'll continue to follow.
--- NOTE | 2021-04-03 14:27 | P.CRDCN ---
History of Present Illness Consult date: 04/03/21 History of present illness: HISTORY OF PRESENT ILLNESS: This is a 75-year-old female with a past medical history significant for cardiomyopathy with recent AICD placement on 03/01/2021, recurrent ventricular tachycardia, CVA with TPA administration, and coronary artery disease with previous stenting. Patient follows in the office with Dr. Nice. We have been asked to see the patient in consultation for congestive heart failure. It is noted that the patient was recently admitted to the hospital secondary to diarrhea. Patient had subsequent discharge of her life vest in the hospital and had recurrent ventricular tachycardia and underwent AICD implantation. Patient then suffered a CVA and was transferred to [facility]. Patient examined at the bedside in the emergency room. Patient presented to the hospital secondary to shortness of breath. Patient was found to be in acute heart failure. She denies a history of heart failure. She was started on IV lasix. Patient was initially placed on a bipap but is currently on 3L NC. She states her breathing has improved since coming to the hospital. She denies chest pain or pressure. EKG reveals sinus mechanism. Right bundle branch block. Left axis deviation. Chest xray new pulmonary edema compared to old exam and consistent with acute heart failure Laboratory data: WBC 14.8. Hemoglobin 13.1. Platelet count 319. Sodium 138. Potassium 3.5. BUN 14. Creatinine 0.94. Magnesium 1.5. Troponin 0.054. 0.072. 0.058. BNP 9370. Current home cardiac medications include lisinopril 2.5 mg daily, Brilinta 90 mg twice a day, pravastatin 80 mg daily, metoprolol succinate 25 mg daily, Eliquis 5 mg twice a day, and amiodarone 400 mg every 12 hours Most recent echocardiogram obtained in February 2021 revealed ejection fraction 25- 30%, basal segment temo only. [place] is akinetic. Mild mitral regurgitation, mild tricuspid regurgitation. Cardiac catheterization history: November 2020 in [place] and had PCI to the mid LAD and proximal LAD REVIEW OF SYSTEMS: At the time of my exam: CONSTITUTIONAL: Denies fever or chills. HEENT: Denies blurred vision, vision changes, or eye pain. Denies hemoptysis CARDIOVASCULAR: Denies chest pain. Denies orthopnea. Denies PND. Denies palpitations RESPIRATORY: Denies shortness of breath. GASTROINTESTINAL: Denies abdominal pain. Denies nausea or vomiting. HEMATOLOGIC: Denies bleeding disorders. GENITOURINARY: Denies any blood in urine. SKIN: Denies pruitis. Denies rash. PHYSICAL EXAM: VITAL SIGNS: Reviewed. GENERAL: Well-developed in no acute distress. HEENT: Head is normocephalic. Pupils are equal, round. Sclerae anicteric. Mucous membranes of the mouth are moist. Neck supple. No JVD or thyromegaly LUNGS: Respirations even and unlabored. Lungs essentially clear to auscultation bilaterally. HEART: Regular rate and rhythm. S1 and S2 heard. ABDOMEN: Soft. Nondistended. Nontender. EXTREMITIES: Normal range of motion. No clubbing or cyanosis. Peripheral pulses intact. No lower extremity edema NEUROLOGIC: Awake and alert. Oriented x 3. ASSESSMENT: Acute systolic heart failure Coronary artery disease with previous PCI to LAD, most recently in November 2020 in [place] Abnormal troponins, likely secondary to CHF, not suggestive of ACS Ischemic cardiomyopathy Ventricular tachycardia, status post ICD in February 2021 History of CVA with thrombectomy Hypertension History of colon cancer Hypomagnesemia PLAN: No need to repeat echo Resume home cardiac medications Decrease amio to 200mg BID Continue IV lasix. Anticipate transitioning to oral Lasix tomorrow Monitor kidney function Supplement potassium Supplement magnesium Recheck electrolytes in a.m. Accurate I&O Further recommendations pending patient's course Nurse practitioner note has been reviewed by physician. Signing provider agrees with the documented findings, assessment, and plan of care. Past Medical History Past Medical History: Coronary Artery Disease (CAD), Cancer Additional Past Medical History / Comment(s): Imaging cardiomyopathy with ejection fraction of 25-30%, hypertension, hyperlipidemia, coronary artery disease with previous coronary stenting, history of CVA along the MCA distribution on the right, post emergent vascular intervention and removal of bl ood clots, history of ventricular tachycardia, history of STD placements, history of colon cancer post resection followed by chemotherapy back in 2016. Last Myocardial Infarction Date:: 12/15/20 History of Any Multi-Drug Resistant Organisms: None Reported Past Surgical History: Heart Catheterization, Heart Catheterization With Stent Additional Past Surgical History / Comment(s): CHOLECYSTECTOMY 10/2016, GLAUCOMA, CATARACTS SURG RIGHT EYE 12/13/20 Past Anesthesia/Blood Transfusion Reactions: Postoperative Nausea & Vomiting (PONV) Date of Last Stent Placement:: 12/13/2020 2 STENTS PLACED "FRONT". Past Psychological History: No Psychological Hx Reported Smoking Status: Never smoker Past Alcohol Use History: Occasional Past Drug Use History: None Reported Medications and Allergies Home Medications Medication Instructions Recorded Confirmed Type Bimatoprost [Lumigan .01% Ophth 1 drop LEFT EYE HS 02/27/21 04/03/21 History Soln] Brimonidine Tartrate/Timolol 1 drop LEFT EYE BID 02/27/21 04/03/21 History [Combigan 0.2%-0.5% Eye Drops] Loperamide [Imodium] 2 mg PO QID PRN 02/27/21 04/03/21 History Loteprednol Etabonate [Inveltys] 1 drop RIGHT EYE DAILY 02/27/21 04/03/21 History Melatonin 3 mg PO HS PRN 02/27/21 04/03/21 History Metoprolol Succinate [Toprol XL] 25 mg PO DAILY 02/27/21 04/03/21 History Pantoprazole Sodium [Protonix] 40 mg PO DAILY 02/27/21 04/03/21 History Pravastatin Sodium [Pravachol] 80 mg PO HS 02/27/21 04/03/21 History Ticagrelor [Brilinta] 90 mg PO BID 02/27/21 04/03/21 History Amiodarone [Cordarone] 400 mg PO Q12H 04/03/21 04/03/21 History Apixaban [Eliquis] 5 mg PO BID 04/03/21 04/03/21 History lisinopriL [Zestril] 2.5 mg PO DAILY 04/03/21 04/03/21 History Allergies Allergy/AdvReac Type Severity Reaction Status Date / Time morphine AdvReac Nausea & Verified 04/03/21 06:58 Vomiting Physical Exam Vitals: Vital Signs Temp Pulse Resp BP Pulse Ox 04/03/21 12:40 58 L 04/03/21 12:26 60 04/03/21 12:17 98.7 F 70 20 139/70 100 04/03/21 11:00 98.7 F 70 20 139/70 100 04/03/21 08:05 100 04/03/21 07:58 60 04/03/21 07:42 60 04/03/21 04:20 78 18 148/92 96 04/03/21 02:05 64 18 128/64 94 L 04/03/21 01:49 73 24 04/03/21 01:25 180/99 04/03/21 01:13 72 26 H 04/03/21 00:56 97.8 F 83 24 84 L Intake and Output 04/02/21 04/03/21 04/03/21 22:59 06:59 14:59 Other: Weight 61.689 kg Results 04/03/21 01:46 04/03/21 01:46 Cardiac Enzymes 04/03/21 04/03/21 04/03/21 Range/Units 01:46 01:46 03:47 AST 28 (14-36) U/L CK-MB (CK-2) 1.1 (0.0-2.4) ng/mL Troponin I 0.054 H* 0.072 H* (0.000-0.034) ng/mL 04/03/21 Range/Units 07:54 AST (14-36) U/L CK-MB (CK-2) (0.0-2.4) ng/mL Troponin I 0.058 H* (0.000-0.034) ng/mL Coagulation 04/03/21 Range/Units 01:46 PT 13.6 H (9.0-12.0) sec APTT 26.2 (22.0-30.0) sec CBC 04/03/21 Range/Units 01:46 WBC 14.8 H (3.8-10.6) k/uL RBC 4.33 (3.80-5.40) m/uL Hgb 13.1 D (11.4-16.0) gm/dL Hct 38.9 (34.0-46.0) % Plt Count 319 (150-450) k/uL Comprehensive Metabolic Panel 04/03/21 Range/Units 01:46 Sodium 138 (137-145) mmol/L Potassium 3.5 (3.5-5.1) mmol/L Chloride 107 (98-107) mmol/L Carbon Dioxide 21 L (22-30) mmol/L BUN 14 (7-17) mg/dL Creatinine 0.94 (0.52-1.04) mg/dL Glucose 153 H (74-99) mg/dL Calcium 9.5 (8.4-10.2) mg/dL AST 28 (14-36) U/L ALT 19 (4-34) U/L Alkaline Phosphatase 79 (38-126) U/L Total Protein 6.7 (6.3-8.2) g/dL Albumin 4.2 (3.5-5.0) g/dL Current Medications Generic Name Dose Route Start Last Admin Trade Name Freq PRN Reason Stop Dose Admin Albuterol Sulfate 5 mg 04/03/21 08:00 04/03/21 12:23 Albuterol Nebulized 2.5 Mg/3 Ml INHALATION 5 mg RT-QID [place] Administration Amiodarone HCl 200 mg 04/03/21 16:00 Amiodarone 200 Mg Tab PO Q12H [place] Apixaban 5 mg 04/03/21 21:00 Apixaban 5 Mg Tab PO BID [facility] Protocol Brimonidine Tartrate 1 drops 04/03/21 21:00 Brimonidine Tartrate 0.2% Drops 5 Ml Btl LEFT EYE BID [facility] Furosemide 40 mg 04/03/21 03:00 04/03/21 11:58 Furosemide 10 Mg/Ml 4 Ml Vial IV 40 mg Q8H [place] Administration Magnesium Sulfate/Dextrose 1 100 mls @ 100 mls/hr 04/03/21 14:00 gm/ IV Solution IVPB 04/03/21 15:59 Q1H [facility] Latanoprost 1 drops 04/03/21 21:00 Latanoprost 0.005% Ophth Drops 2.5 Ml Btl LEFT EYE HS [facility] Lisinopril 2.5 mg 04/04/21 09:00 Lisinopril 2.5 Mg Tab PO DAILY [facility] Loperamide HCl 2 mg 04/03/21 12:11 Loperamide 2 Mg Cap PO QID PRN Loose Stool Melatonin 3 mg 04/03/21 12:11 Melatonin 3 Mg Tablet PO HS PRN Insomnia Metoprolol Succinate 25 mg 04/04/21 09:00 Metoprolol Succinate (Er) 25 Mg Tab.Er.24h PO DAILY [facility] Non-Formulary Medication 1 drop 04/04/21 09:00 Loteprednol Etabonate [Inveltys] RIGHT EYE DAILY [facility] Pantoprazole Sodium 40 mg 04/04/21 07:30 Pantoprazole 40 Mg Tablet PO DAILY@0730 [facility] Pravastatin Sodium 80 mg 04/03/21 21:00 Pravastatin Sodium 80 Mg Tab PO HS [place] Ticagrelor 90 mg 04/03/21 21:00 Ticagrelor 90 Mg Tab PO BID [place] Timolol Maleate 1 drops 04/03/21 21:00 Timolol 0.5% Ophth Drops 5 Ml Btl LEFT EYE BID [place] Intake and Output 04/02/21 04/03/21 04/03/21 22:59 06:59 14:59 Other: Weight 61.689 kg 04/03/21 01:46 04/03/21 01:46
[2021-04-03] MEDS: MAGNESIUM SULFATE-D5W PMX 1 GM in DEXTROSE/WATER 1 100ML.BAG IVPB SCH ×2 (15:04→16:31)
--- NOTE | 2021-04-03 17:42 | P.HPIM ---
History of Present Illness H&P Date: 04/03/21 Hernan Contreras, is a 75-year-old female who presented to [facility] emergency room with a chief complaint of generalized weakness and shortness of breath He was evaluated in the emergency room vital examination on presentation revealed a temperature of 97.8 pulse 83 respiration 24 pulse ox 84% on 2 L nasal cannula Laboratory data reveals a white blood count of 14.8 hemoglobin 13.1 platelet count 319 sodium 138 potassium 3.5 chloride 107 CO2 21 BUN 14 creatinine 0.94 glucose 153 troponin 0.058 BNP was elevated at 9370 Testing in the emergency room revealed chest x-ray revealed evidence of pulmonary edema, EKG revealed evidence of normal sinus rhythm with right bundle branch block. Patient was admitted to medical floor for further evaluation and treatment Past medical history is significant for history of hypertension, history of hyperlipidemia, history of gastroesophageal reflux disease, history of coronary artery disease with history of angioplasty and stent placement in November 2020, history of ischemic cardiomyopathy, history of ventricular tachycardia patient is maintained on amiodarone she had a life vest and then an ICD placement in February 2021, history of stroke with history of thrombectomy, and history of colon cancer On review of systems patient is alert and oriented 3 she is complaining of generalized weakness and shortness of breath with activity otherwise she denies any complaints . There is no fever or chills no headache or dizziness no chest pain no shortness of breath at rest no palpitation no cough no nausea or vomiting no abdominal pain no diarrhea no blood in the stools no burning with urination no frequency or urgency and no hematuria, there is no weakness or numbness in any of the extremities no change in vision speech or gait. Past Medical History Past Medical History: Cancer, Chest Pain / Angina Additional Past Medical History / Comment(s): Colon. Last Myocardial Infarction Date:: 12/15/20 History of Any Multi-Drug Resistant Organisms: None Reported Past Surgical History: Heart Catheterization, Heart Catheterization With Stent Additional Past Surgical History / Comment(s): CHOLECYSTECTOMY 10/2016, GLAUCOMA, CATARACTS SURG RIGHT EYE 12/13/20 Past Anesthesia/Blood Transfusion Reactions: Postoperative Nausea & Vomiting (PONV) Date of Last Stent Placement:: 12/13/2020 2 STENTS PLACED "FRONT". Past Psychological History: No Psychological Hx Reported Smoking Status: Never smoker Past Alcohol Use History: Occasional Past Drug Use History: None Reported Medications and Allergies Home Medications Medication Instructions Recorded Confirmed Type Bimatoprost [Lumigan .01% Ophth 1 drop LEFT EYE HS 02/27/21 04/03/21 History Soln] Brimonidine Tartrate/Timolol 1 drop LEFT EYE BID 02/27/21 04/03/21 History [Combigan 0.2%-0.5% Eye Drops] Loperamide [Imodium] 2 mg PO QID PRN 02/27/21 04/03/21 History Loteprednol Etabonate [Inveltys] 1 drop RIGHT EYE DAILY 02/27/21 04/03/21 History Melatonin 3 mg PO HS PRN 02/27/21 04/03/21 History Metoprolol Succinate [Toprol XL] 25 mg PO DAILY 02/27/21 04/03/21 History Pantoprazole Sodium [Protonix] 40 mg PO DAILY 02/27/21 04/03/21 History Pravastatin Sodium [Pravachol] 80 mg PO HS 02/27/21 04/03/21 History Ticagrelor [Brilinta] 90 mg PO BID 02/27/21 04/03/21 History Amiodarone [Cordarone] 400 mg PO Q12H 04/03/21 04/03/21 History Apixaban [Eliquis] 5 mg PO BID 04/03/21 04/03/21 History lisinopriL [Zestril] 2.5 mg PO DAILY 04/03/21 04/03/21 History Allergies Allergy/AdvReac Type Severity Reaction Status Date / Time morphine AdvReac Nausea & Verified 04/03/21 06:58 Vomiting Physical Exam Vitals: Vital Signs Temp Pulse Resp BP Pulse Ox 04/03/21 11:00 98.7 F 70 20 139/70 100 04/03/21 08:05 100 04/03/21 07:58 60 04/03/21 07:42 60 04/03/21 04:20 78 18 148/92 96 04/03/21 02:05 64 18 128/64 94 L 04/03/21 01:49 73 24 04/03/21 01:25 180/99 04/03/21 01:13 72 26 H 04/03/21 00:56 97.8 F 83 24 84 L Intake and Output 04/02/21 04/03/2121 22:59 06:59 14:59 Other: Weight 61.689 kg In general patient is alert and oriented x 3 in no distress HEENT head normocephalic and atraumatic Neck is supple no JVD no goiter no lymphadenopathy no carotid bruit Chest examination is clear to auscultation no crackles no wheezing Cardiac exam reveals regular heart sounds S1 and S2 no gallops no murmurs Abdomen is soft nontender no organomegaly with normal bowel sounds Extremity exam reveals no edema no cyanosis or clubbing Neurological examination reveals no gross focal deficits Results CBC & Chem 7: 04/03/21 01:46 04/03/21 01:46 Labs: Abnormal Lab Results - Last 24 Hours (Table) 04/03/21 04/03/21 04/03/21 Range/Units 01:46 01:46 01:46 WBC 14.8 H (3.8-10.6) k/uL RDW 16.2 H (11.5-15.5) % Neutrophils # 13.6 H (1.3-7.7) k/uL Lymphocytes # 0.4 L (1.0-4.8) k/uL PT 13.6 H (9.0-12.0) sec INR 1.3 H (<1.2) Carbon Dioxide 21 L (22-30) mmol/L Glucose 153 H (74-99) mg/dL Magnesium 1.5 L (1.6-2.3) mg/dL Troponin I (0.000-0.034) ng/mL 04/03/21 04/03/21 04/03/21 Range/Units 01:46 03:47 07:54 WBC (3.8-10.6) k/uL RDW (11.5-15.5) % Neutrophils # (1.3-7.7) k/uL Lymphocytes # (1.0-4.8) k/uL PT (9.0-12.0) sec INR (<1.2) Carbon Dioxide (22-30) mmol/L Glucose (74-99) mg/dL Magnesium (1.6-2.3) mg/dL Troponin I 0.054 H* 0.072 H* 0.058 H* (0.000-0.034) ng/mL Assessment and Plan Plan: Acute systolic congestive heart failure exacerbation Underlying history of coronary artery disease with recent angioplasty and stent placement Underlying history of ventricular tachycardia maintained on amiodarone with recent history of ICD placement in February 2021 Mildly Elevated troponin level, cardiology consult requested Previous history of stroke Underlying history of hypertension Underlying history of hyperlipidemia Previous history of colon cancer At this time patient is admitted to telemetry floor, she was started on IV Lasix 40 mg every 8 hours Pulmonary consultation and cardiology consultation were requested Home medications reviewed and reordered will recheck labs in a.m.
[2021-04-03] MEDS: APIXABAN 5 MG TAB PO SCH (20:50)
[2021-04-03] MEDS: AMIODARONE 200 MG TAB PO SCH (20:50)
[2021-04-03] MEDS: PRAVASTATIN SODIUM 80 MG TAB PO SCH (20:50)
[2021-04-03] MEDS: MELATONIN 5 MG TABLET PO SCH (20:51)
[2021-04-03] MEDS: TICAGRELOR 90 MG TAB PO SCH (20:51)
[2021-04-03] MEDS: BRIMONIDINE TARTRATE 0.2% DROPS 5 ML BTL LEFT EYE SCH (20:52)
[2021-04-03] MEDS: TIMOLOL 0.5% OPHTH DROPS 5 ML BTL LEFT EYE SCH (20:53)
[2021-04-03] MEDS: LATANOPROST 0.005% OPHTH DROPS 2.5 ML BTL LEFT EYE SCH (20:53)
[2021-04-04] MEDS: FUROSEMIDE 10 MG/ML 4 ML VIAL IV SCH (03:18)
[2021-04-04] MEDS: PANTOPRAZOLE 40 MG TABLET PO SCH (06:14)
--- NOTE | 2021-04-04 07:37 | XR ---
EXAMINATION TYPE: XR chest 1V portable DATE OF EXAM: 04/04/2021 HISTORY: Shortness of breath. COMPARISON: 04/03/2021 TECHNIQUE: Single view of the chest is submitted. FINDINGS: Much improved appearance of the chest. Changes of pulmonary venous congestion and interstitial edema all. There is no evidence for focal infiltrate. The heart is stable. Hilar and mediastinal structures are within normal limits. Degenerative changes are seen of the dorsal spine. IMPRESSION: 1. Much improved appearance of the chest. Changes of pulmonary venous congestion and interstitial ed jacey all.
[2021-04-04] MEDS: ALBUTEROL NEBULIZED 2.5 MG/3 ML INHALATION SCH ×4 (07:52→19:11)
[2021-04-04 08:14] LABS: Anisocytosis Slight; Basophils % (A) 0 %; Eosinophils % (A) 0 %; HCT 37.1 % (34.0-46.0); HGB 12.6 gm/dL (11.4-16.0); Lymphocytes # (A) 0.3 k/uL (1.0-4.8); Lymphocytes % (A) 2 %; MCH 30.4 pg (25.0-35.0); MCV 89.3 fL (80.0-100.0); Mean Platelet Volume 8.7; Monocytes # (A) 0.5 k/uL (0-1.0); Monocytes % (A) 3 %; Neutrophils # (A) 16.7 k/uL (1.3-7.7); Neutrophils % (A) 95 %; Platelet Count 265 k/uL (150-450); RBC 4.15 m/uL (3.80-5.40); RDW 16.1 % (11.5-15.5); WBC 17.6 k/uL (3.8-10.6)
[2021-04-04] MEDS: APIXABAN 5 MG TAB PO SCH ×2 (08:26→21:05)
[2021-04-04] MEDS: METOPROLOL SUCCINATE (ER) 25 MG TAB.ER.24H PO SCH (08:26)
[2021-04-04] MEDS: TIMOLOL 0.5% OPHTH DROPS 5 ML BTL LEFT EYE SCH ×2 (08:26→21:06)
[2021-04-04] MEDS: AMIODARONE 200 MG TAB PO SCH ×2 (08:26→21:05)
[2021-04-04] MEDS: TICAGRELOR 90 MG TAB PO SCH ×2 (08:26→21:05)
[2021-04-04 08:43] LABS: Calcium 9.4 mg/dL (8.4-10.2); Magnesium 2.1 mg/dL (1.6-2.3); Total Bilirubin 0.9 mg/dL (0.2-1.3); Total Protein 6.5 g/dL (6.3-8.2)
[2021-04-04 09:01] LABS: Potassium 4.3 mmol/L (3.5-5.1)
[2021-04-04 11:25] VITALS: BMI 25.4
[2021-04-04] MEDS: FUROSEMIDE 40 MG TAB PO SCH (12:14)
[2021-04-04] MEDS: BRIMONIDINE TARTRATE 0.2% DROPS 5 ML BTL LEFT EYE SCH ×2 (12:17→21:06)
--- NOTE | 2021-04-04 12:25 | P.PN ---
Subjective Progress Note Date: 04/04/21 Hernan Contreras, is a 75-year-old female who presented to [facility] emergency room with a chief complaint of generalized weakness and shortness of breath He was evaluated in the emergency room vital examination on presentation revealed a temperature of 97.8 pulse 83 respiration 24 pulse ox 84% on 2 L nasal cannula Laboratory data reveals a white blood count of 14.8 hemoglobin 13.1 platelet count 319 sodium 138 potassium 3.5 chloride 107 CO2 21 BUN 14 creatinine 0.94 glucose 153 troponin 0.058 BNP was elevated at 9370 Testing in the emergency room revealed chest x-ray revealed evidence of pulmonary edema, EKG revealed evidence of normal sinus rhythm with right bundle branch block. Patient was admitted to medical floor for further evaluation and treatment Past medical history is significant for history of hypertension, history of hyperlipidemia, history of gastroesophageal reflux disease, history of coronary artery disease with history of angioplasty and stent placement in November 2020, history of ischemic cardiomyopathy, history of ventricular tachycardia patient is maintained on amiodarone she had a life vest and then an ICD placement in February 2021, history of stroke with history of thrombectomy, and history of colon cancer On review of systems patient is alert and oriented 3 she is complaining of generalized weakness and shortness of breath with activity otherwise she denies any complaints . There is no fever or chills no headache or dizziness no chest pain no shortness of breath at rest no palpitation no cough no nausea or vomiting no abdominal pain no diarrhea no blood in the stools no burning with urination no frequency or urgency and no hematuria, there is no weakness or numbness in any of the extremities no change in vision speech or gait. On 04/04/2021 patient's alert and oriented 3. Patient has been transitioned to oral Lasix. Patient has been cleared by cardiology services. Patient requesting to stay 1 more day. Will order repeat labs for a.m. to monitor kidney function. At this time patient denies chest pain or shortness of breath. Patient denies nausea vomiting or diarrhea. Patient denies any urinary burning or frequency. Per cardiology services patient to be discharged on decreased dose of amiodarone. Objective - Vital Signs Vital signs: Vital Signs Temp 98.2 F 04/04/21 08:25 Pulse 63 04/04/21 08:25 Resp 18 04/04/21 08:25 BP 118/64 04/04/21 08:25 Pulse Ox 99 04/04/21 08:25 Intake & Output 04/03/21 04/04/21 04/04/21 18:59 06:59 18:59 Intake Total 420 240 240 Output Total 375 575 Balance 45 -335 240 Weight 41 kg 59 kg Intake: Oral 420 240 240 Output: Urine 375 575 Other: Voiding Method Toilet Toilet Toilet # Voids 1 2 - Exam In general patient is alert and oriented x 3 in no distress HEENT head normocephalic and atraumatic Neck is supple no JVD no goiter no lymphadenopathy no carotid bruit Chest examination is clear to auscultation no crackles no wheezing Cardiac exam reveals regular heart sounds S1 and S2 no gallops no murmurs Abdomen is soft nontender no organomegaly with normal bowel sounds Extremity exam reveals no edema no cyanosis or clubbing Neurological examination reveals no gross focal deficits - Labs CBC & Chem 7: 04/04/21 07:13 04/04/21 07:13 Labs: Abnormal Lab Results - Last 24 Hours (Table) 04/04/21 04/04/21 Range/Units 07:13 07:13 WBC 17.6 H (3.8-10.6) k/uL RDW 16.1 H (11.5-15.5) % Neutrophils # 16.7 H (1.3-7.7) k/uL Lymphocytes # 0.3 L (1.0-4.8) k/uL BUN 25 H (7-17) mg/dL Creatinine 1.15 H (0.52-1.04) mg/dL Glucose 139 H (74-99) mg/dL Assessment and Plan Plan: Acute systolic congestive heart failure exacerbation Underlying history of coronary artery disease with recent angioplasty and stent placement Underlying history of ventricular tachycardia maintained on amiodarone with recent history of ICD placement in February 2021 Mildly Elevated troponin level, cardiology consult requested per cardiology this is likely due to CHF not suggestive ACS Previous history of stroke Underlying history of hypertension Underlying history of hyperlipidemia Previous history of colon cancer Patient has been transitioned to oral Lasix Repeat labs ordered for a.m. Anticipate discharge in the next 24-48 hours
--- NOTE | 2021-04-04 12:56 | P.PN ---
Subjective Progress Note Date: 04/04/21 HISTORY OF PRESENT ILLNESS: This is a 75-year-old female with a past medical history significant for cardiomyopathy with recent AICD placement on 03/01/2021, recurrent ventricular tachycardia, CVA with TPA administration, and coronary artery disease with previous stenting. Patient follows in the office with Dr. Nice. We have been asked to see the patient in consultation for congestive heart failure. It is noted that the patient was recently admitted to the hospital secondary to diarrhea. Patient had subsequent discharge of her life vest in the hospital and had recurrent ventricular tachycardia and underwent AICD implantation. Patient then suffered a CVA and was transferred to [facility]. Patient examined at the bedside in the emergency room. Patient presented to the hospital secondary to shortness of breath. Patient was found to be in acute heart failure. She de nies a history of heart failure. She was started on IV lasix. Patient was initially placed on a bipap but is currently on 3L NC. She states her breathing has improved since coming to the hospital. She denies chest pain or pressure. EKG reveals sinus mechanism. Right bundle branch block. Left axis deviation. Chest xray new pulmonary edema compared to old exam and consistent with acute heart failure Laboratory data: WBC 14.8. Hemoglobin 13.1. Platelet count 319. Sodium 138. Potassium 3.5. BUN 14. Creatinine 0.94. Magnesium 1.5. Troponin 0.054. 0.072. 0.058. BNP 9370. Current home cardiac medications include lisinopril 2.5 mg daily, Brilinta 90 mg twice a day, pravastatin 80 mg daily, metoprolol succinate 25 mg daily, Eliquis 5 mg twice a day, and amiodarone 400 mg every 12 hours Most recent echocardiogram obtained in February 2021 revealed ejection fraction 25- 30%, basal segment temo only. [place] is akinetic. Mild mitral regurgitation, mild tricuspid regurgitation. Cardiac catheterization history: November 2020 in [place] and had PCI to the mid LAD and proximal LAD 04/04/2021 Patient examined this morning at the bedside. Patient denies chest pain or pressure. She denies shortness of breath. Patient states she has been up and bleeding to the bathroom without dyspnea. Vital signs are stable. PHYSICAL EXAM: VITAL SIGNS: Reviewed. GENERAL: Well-developed in no acute distress. HEENT: Head is normocephalic. Pupils are equal, round. Sclerae anicteric. Mucous membranes of the mouth are moist. Neck supple. No JVD or thyromegaly LUNGS: Respirations even and unlabored. Lungs essentially clear to auscultation bilaterally. HEART: Regular rate and rhythm. S1 and S2 heard. ABDOMEN: Soft. Nondistended. Nontender. EXTREMITIES: Normal range of motion. No clubbing or cyanosis. Peripheral pulses intact. No lower extremity edema NEUROLOGIC: Awake and alert. Oriented x 3. ASSESSMENT: Acute systolic heart failure Coronary artery disease with previous PCI to LAD, most recently in November 2020 in [place] Abnormal troponins, likely secondary to CHF, not suggestive of ACS Ischemic cardiomyopathy Ventricular tachycardia, status post ICD in February 2021 History of CVA with thrombectomy Hypertension History of colon cancer Hypomagnesemia PLAN: Discontinue IV Lasix. Begin oral Lasix 40 mg daily Continue additional cardiac medications Patient may be discharged home today. She is to follow up on an outpatient basis. Nurse practitioner note has been reviewed by physician. Signing provider agrees with the documented findings, assessment, and plan of care. Objective - Vital Signs Vital signs: Vital Signs Temp 97.6 F 04/04/21 12:11 Pulse 55 L 04/04/21 12:11 Resp 16 04/04/21 12:11 BP 128/74 04/04/21 12:11 Pulse Ox 99 04/04/21 12:11 Intake & Output 04/03/21 04/04/21 04/04/21 18:59 06:59 18:59 Intake Total 420 240 240 Output Total 375 575 300 Balance 45 -335 -60 Weight 41 kg 59 kg Intake: Oral 420 240 240 Output: Urine 375 575 300 Other: Voiding Method Toilet Toilet Toilet # Voids 1 2 - Labs CBC & Chem 7: 04/04/21 07:13 04/04/21 07:13 Labs: Abnormal Lab Results - Last 24 Hours (Table) 04/04/21 04/04/21 Range/Units 07:13 07:13 WBC 17.6 H (3.8-10.6) k/uL RDW 16.1 H (11.5-15.5) % Neutrophils # 16.7 H (1.3-7.7) k/uL Lymphocytes # 0.3 L (1.0-4.8) k/uL BUN 25 H (7-17) mg/dL Creatinine 1.15 H (0.52-1.04) mg/dL Glucose 139 H (74-99) mg/dL
[2021-04-04] MEDS: NON FORMULARY DRUG (Loteprednol Etabonate [Inveltys] 2.8 ML Drops.Susp) RIGHT EYE SCH (13:52)
--- NOTE | 2021-04-04 14:32 | P.PN ---
Subjective Progress Note Date: 04/04/21 Principal diagnosis: Dyspnea This is a 75-year-old female patient who is coming to the hospital after a recent hospitalization in early February where the patient was admitted for com plications of heart disease, recurrent V. tach and acute kidney injury secondary to CHF and LV dysfunction and ischemic cardiomyopathy. The patient at that time was taken care of by our service in the intensive care unit. Electrolytes were adjusted. Patient was treated with amiodarone. Given a AICD and discharged home. She is known to have coronary artery disease, previous [place], previous coronary stenting 2, and during her stay in [place] she was given a LifeVest after undergoing a cardiac intervention stent placement. She is known to have severe LV dysfunction systolic heart failure. The echocardiogram back then that was done on 02/27/2021 showed a level is good ejection fraction of 25-30%, no pericardial effusion, no significant valvular abnormalities. The patient had mild concentric LVH. My understanding is that the patient also needed coronary artery bypass surgery and she was being looked into the surgery after some further stabilization of her cardiac status. 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 She is able to move all extremities without any major difficulties. The patient came into the emergency department yesterday because of worsening shortness of breath. This happened around midnight yesterday. No reported chest pain. No syncope. No angina. No swelling in lower extremities. She came into the hospital and a chest x-ray was consistent with pulmonary edema. She was placed on BiPAP. She was placed on oxygen. She was given Lasix in the emergency department. Immediately following that her breathing improved. At the time of my evaluation, her cardiac rhythm is sinus. She is breathing normally. Her breathing is nonlabored. She has diuresed adequately. Her EKG showing a normal sinus rhythm and there is a bundle-branch block pattern on her EKG. Blood work showed troponin leak with elevation of the troponins in the order of 0.05 and 0.07 and 0.05 respectively 3. The proBNP level was 9317. Renal function was stable with a creatinine of 0.9. Coagulation profile was normal. White cell count was at 14.8. On 04/04/2021 patient seen in follow-up on selective care unit, she is sitting up in the recliner, currently on room air, breathing quite comfortably, her O2 saturation is 99%, no complaints of chest pain, a lot of signs have been stable. Patient has been diuresed, her chest x-ray today shows much improved appearance of the chest, which changes of pulmonary venous congestion and interstitial edema. Lung sounds reveal minimal crackles. Patient is maintaining stable O2 saturations on room air, has not required BiPAP support in the last 24 hours. Patient is in sinus mechanism with a right bundle branch block. Patient has not had any episodes of arrhythmias this admission, she is currently on oral amiodarone 200 mg twice daily, she is on Toprol-XL 25 mg daily, and oral anticoagulation form of Eliquis. She has been transitioned to oral Lasix 40 mg once daily. She is on combination of high-dose statins in the form of Pravachol 80 mg at bedtime, she is on Brillinta and Lisinopril Objective - Vital Signs Vital signs: Vital Signs Temp 97.6 F 04/04/21 12:11 Pulse 55 L 04/04/21 12:11 Resp 16 04/04/21 12:11 BP 128/74 04/04/21 12:11 Pulse Ox 99 04/04/21 12:11 Intake & Output 04/03/21 04/04/21 04/04/21 18:59 06:59 18:59 Intake Total 420 240 240 Output Total 375 575 300 Balance 45 -335 -60 Weight 41 kg 59 kg Intake: Oral 420 240 240 Output: Urine 375 575 300 Other: Voiding Method Toilet Toilet Toilet # Voids 1 2 - Exam GENERAL EXAM: Alert, very pleasant, 75-year-old white female, on room air with pulse ox of 99%, comfortable in no apparent distress. HEAD: Normocephalic/atraumatic. EYES: Normal reaction of pupils, equal size. Conjunctiva pink, sclera white. NOSE: Clear with pink turbinates. THROAT: No erythema or exudates. NECK: No masses, no JVD, no thyroid enlargement, no adenopathy. CHEST: No chest wall deformity. Symmetrical expansion. LUNGS: Equal air entry with minimal crackles CVS: Regular rate and rhythm, normal S1 and S2, no gallops, no murmurs, no rubs ABDOMEN: Soft, nontender. No hepatosplenomegaly, normal bowel sounds, no guarding or rigidity. EXTREMITIES: No clubbing, no edema, no cyanosis, 2+ pulses and upper and lower extremities. MUSCULOSKELETAL: Muscle strength and tone normal. SPINE: No scoliosis or deformity SKIN: No rashes CENTRAL NERVOUS SYSTEM: Alert and oriented -3. No focal deficits, tone is normal in all 4 extremities. PSYCHIATRIC: Alert and oriented -3. Appropriate affect. Intact judgment and insight. - Labs CBC & Chem 7: 04/04/21 07:13 04/04/21 07:13 Labs: Abnormal Lab Results - Last 24 Hours (Table) 04/04/21 04/04/21 Range/Units 07:13 07:13 WBC 17.6 H (3.8-10.6) k/uL RDW 16.1 H (11.5-15.5) % Neutrophils # 16.7 H (1.3-7.7) k/uL Lymphocytes # 0.3 L (1.0-4.8) k/uL BUN 25 H (7-17) mg/dL Creatinine 1.15 H (0.52-1.04) mg/dL Glucose 139 H (74-99) mg/dL Assessment and Plan Plan: Assessment: 1 acute pulmonary edema with secondary shortness of breath. The patient's presentation is typical with CHF and pulmonary edema and the proBNP is elevated and the patient responded nicely to diuretics and the patient is currently off the BiPAP and off oxygen currently on room air oxygen. 2 CHF with an underlying ischemic cardiomyopathy with an ejection fraction of 20-25% 3 coronary artery disease, please refer to previous cardiology evaluations in this regard. The patient undergone previous coronary stenting that was done in [place]. 4 history of ventricular tachycardia, episodic, post-AICD placement and currently she is on amiodarone 5 hypertension 6 hyperlipidemia 7 history of colon cancer post-colectomy and followed by systemic chemotherapy 8 history of CVA requiring immediate vascular intervention and removal of clot along the right MCA distribution without any neurologic deficits Plan: Today's chest x-ray has been reviewed showing significant improvement in aeration Patient is maintaining stable O2 saturations on room air She has been transitioned to oral Lasix Vital signs have been stable No recurrence of arrhythmias Breathing comfortably Anticipate discharge home tomorrow Time with Patient: Less than 30
[2021-04-04] MEDS: LATANOPROST 0.005% OPHTH DROPS 2.5 ML BTL LEFT EYE SCH (21:05)
[2021-04-04] MEDS: PRAVASTATIN SODIUM 80 MG TAB PO SCH (21:05)
[2021-04-04] MEDS: MELATONIN 5 MG TABLET PO SCH (21:05)
[2021-04-05 01:19] VITALS: RESP 16
[2021-04-05] MEDS: PANTOPRAZOLE 40 MG TABLET PO SCH (06:28)
[2021-04-05] MEDS: ALBUTEROL NEBULIZED 2.5 MG/3 ML INHALATION SCH ×3 (08:36→15:17)
[2021-04-05] MEDS: METOPROLOL SUCCINATE (ER) 25 MG TAB.ER.24H PO SCH (09:32)
[2021-04-05] MEDS: AMIODARONE 200 MG TAB PO SCH (09:32)
[2021-04-05] MEDS: APIXABAN 5 MG TAB PO SCH (09:32)
[2021-04-05] MEDS: TICAGRELOR 90 MG TAB PO SCH (09:32)
[2021-04-05] MEDS: FUROSEMIDE 40 MG TAB PO SCH (09:32)
[2021-04-05] MEDS: BRIMONIDINE TARTRATE 0.2% DROPS 5 ML BTL LEFT EYE SCH (09:32)
[2021-04-05] MEDS: NON FORMULARY DRUG (Loteprednol Etabonate [Inveltys] 2.8 ML Drops.Susp) RIGHT EYE SCH (09:32)
[2021-04-05] MEDS: TIMOLOL 0.5% OPHTH DROPS 5 ML BTL LEFT EYE SCH (09:33)
[2021-04-05 10:54] VITALS: TEMP 97.6
--- NOTE | 2021-04-05 11:44 | P.PN ---
Subjective Progress Note Date: 04/05/21 HISTORY OF PRESENT ILLNESS: This is a 75-year-old female with a past medical history significant for cardiomyopathy with recent AICD placement on 03/01/2021, recurrent ventricular tachycardia, CVA with TPA administration, and coronary artery disease with previous stenting. Patient follows in the office with Dr. Nice. We have been asked to see the patient in consultation for congestive heart failure. It is noted that the patient was recently admitted to the hospital secondary to diarrhea. Patient had subsequent discharge of her life vest in the hospital and had recurrent ventricular tachycardia and underwent AICD implantation. Patient then suffered a CVA and was transferred to [facility]. Patient examined at the bedside in the emergency room. Patient presented to the hospital secondary to shortness of breath. Patient was found to be in acute heart failure. She de nies a history of heart failure. She was started on IV lasix. Patient was initially placed on a bipap but is currently on 3L NC. She states her breathing has improved since coming to the hospital. She denies chest pain or pressure. EKG reveals sinus mechanism. Right bundle branch block. Left axis deviation. Chest xray new pulmonary edema compared to old exam and consistent with acute heart failure Laboratory data: WBC 14.8. Hemoglobin 13.1. Platelet count 319. Sodium 138. Potassium 3.5. BUN 14. Creatinine 0.94. Magnesium 1.5. Troponin 0.054. 0.072. 0.058. BNP 9370. Current home cardiac medications include lisinopril 2.5 mg daily, Brilinta 90 mg twice a day, pravastatin 80 mg daily, metoprolol succinate 25 mg daily, Eliquis 5 mg twice a day, and amiodarone 400 mg every 12 hours Most recent echocardiogram obtained in February 2021 revealed ejection fraction 25- 30%, basal segment temo only. [place] is akinetic. Mild mitral regurgitation, mild tricuspid regurgitation. Cardiac catheterization history: November 2020 in [place] and had PCI to the mid LAD and proximal LAD 04/04/2021 Patient examined this morning at the bedside. Patient denies chest pain or pressure. She denies shortness of breath. Patient states she has been up and bleeding to the bathroom without dyspnea. Vital signs are stable. 04/05/2021 Patient examined this morning at the bedside. Patient denies chest pain or pressure. She denies shortness of breath. She remains on oral Lasix. Vital signs are stable. PHYSICAL EXAM: VITAL SIGNS: Reviewed. GENERAL: Well-developed in no acute distress. HEENT: Head is normocephalic. Pupils are equal, round. Sclerae anicteric. Mucous membranes of the mouth are moist. Neck supple. No JVD or thyromegaly LUNGS: Respirations even and unlabored. Lungs essentially clear to auscultation bilaterally. HEART: Regular rate and rhythm. S1 and S2 heard. ABDOMEN: Soft. Nondistended. Nontender. EXTREMITIES: Normal range of motion. No clubbing or cyanosis. Peripheral pulses intact. No lower extremity edema NEUROLOGIC: Awake and alert. Oriented x 3. ASSESSMENT: Acute systolic heart failure Coronary artery disease with previous PCI to LAD, most recently in November 2020 in [place] Abnormal troponins, likely secondary to CHF, not suggestive of ACS Ischemic cardiomyopathy Ventricular tachycardia, status post ICD in February 2021 History of CVA with thrombectomy Hypertension History of colon cancer Hypomagnesemia PLAN: Continue current cardiac medications Patient may be discharged home today. She is to follow up on an outpatient basis. We will sign off. Please reconsult if needed. Nurse practitioner note has been reviewed by physician. Signing provider agrees with the documented findings, assessment, and plan of care. Objective - Vital Signs Vital signs: Vital Signs Temp 97.6 F 04/05/21 08:00 Pulse 60 04/05/21 08:50 Resp 16 04/05/21 08:50 BP 149/74 04/05/21 08:00 Pulse Ox 99 04/05/21 08:37 Intake & Output 04/04/21 04/05/21 04/05/21 18:59 06:59 18:59 Intake Total 720 240 540 Output Total 300 100 Balance 420 140 540 Weight 59 kg 59.2 kg Intake: Oral 720 240 540 Output: Urine 300 100 Other: Voiding Method Toilet Toilet # Voids 1 - Labs CBC & Chem 7: 04/04/21 07:13 04/04/21 07:13
--- NOTE | 2021-04-05 12:17 | P.PN ---
Subjective Progress Note Date: 04/05/21 Principal diagnosis: Dyspnea This is a 75-year-old female patient who is coming to the hospital after a recent hospitalization in early February where the patient was admitted for com plications of heart disease, recurrent V. tach and acute kidney injury secondary to CHF and LV dysfunction and ischemic cardiomyopathy. The patient at that time was taken care of by our service in the intensive care unit. Electrolytes were adjusted. Patient was treated with amiodarone. Given a AICD and discharged home. She is known to have coronary artery disease, previous [place], previous coronary stenting 2, and during her stay in [place] she was given a LifeVest after undergoing a cardiac intervention stent placement. She is known to have severe LV dysfunction systolic heart failure. The echocardiogram back then that was done on 02/27/2021 showed a level is good ejection fraction of 25-30%, no pericardial effusion, no significant valvular abnormalities. The patient had mild concentric LVH. My understanding is that the patient also needed coronary artery bypass surgery and she was being looked into the surgery after some further stabilization of her cardiac status. 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 She is able to move all extremities without any major difficulties. The patient came into the emergency department yesterday because of worsening shortness of breath. This happened around midnight yesterday. No reported chest pain. No syncope. No angina. No swelling in lower extremities. She came into the hospital and a chest x-ray was consistent with pulmonary edema. She was placed on BiPAP. She was placed on oxygen. She was given Lasix in the emergency department. Immediately following that her breathing improved. At the time of my evaluation, her cardiac rhythm is sinus. She is breathing normally. Her breathing is nonlabored. She has diuresed adequately. Her EKG showing a normal sinus rhythm and there is a bundle-branch block pattern on her EKG. Blood work showed troponin leak with elevation of the troponins in the order of 0.05 and 0.07 and 0.05 respectively 3. The proBNP level was 9317. Renal function was stable with a creatinine of 0.9. Coagulation profile was normal. White cell count was at 14.8. On 04/04/2021 patient seen in follow-up on selective care unit, she is sitting up in the recliner, currently on room air, breathing quite comfortably, her O2 saturation is 99%, no complaints of chest pain, a lot of signs have been stable. Patient has been diuresed, her chest x-ray today shows much improved appearance of the chest, which changes of pulmonary venous congestion and interstitial edema. Lung sounds reveal minimal crackles. Patient is maintaining stable O2 saturations on room air, has not required BiPAP support in the last 24 hours. Patient is in sinus mechanism with a right bundle branch block. Patient has not had any episodes of arrhythmias this admission, she is currently on oral amiodarone 200 mg twice daily, she is on Toprol-XL 25 mg daily, and oral anticoagulation form of Eliquis. She has been transitioned to oral Lasix 40 mg once daily. She is on combination of high-dose statins in the form of Pravachol 80 mg at bedtime, she is on Brillinta and Lisinopril On 04/05/2021 patient seen in follow-up on selective care unit, she is awake alert, in no acute distress, breathing comfortably, lung sounds are essentially clear to auscultation, no chest pain, no episodes of arrhythmia overnight, vital signs are stable, patient is on room air, with a pulse ox of 99%. No acute events overnight, patient is anticipated to go home today, she has been transitioned to oral Lasix 40 mg once daily Objective - Vital Signs Vital signs: Vital Signs Temp 97.6 F 04/05/21 08:00 Pulse 60 04/05/21 08:50 Resp 16 04/05/21 08:50 BP 149/74 04/05/21 08:00 Pulse Ox 99 04/05/21 08:37 Intake & Output 04/04/21 04/05/21 04/05/21 18:59 06:59 18:59 Intake Total 720 240 540 Output Total 300 100 Balance 420 140 540 Weight 59 kg 59.2 kg Intake: Oral 720 240 540 Output: Urine 300 100 Other: Voiding Method Toilet Toilet # Voids 1 - Exam GENERAL EXAM: Alert, very pleasant, 75-year-old white female, on room air with pulse ox of 99%, comfortable in no apparent distress. HEAD: Normocephalic/atraumatic. EYES: Normal reaction of pupils, equal size. Conjunctiva pink, sclera white. NOSE: Clear with pink turbinates. THROAT: No erythema or exudates. NECK: No masses, no JVD, no thyroid enlargement, no adenopathy. CHEST: No chest wall deformity. Symmetrical expansion. LUNGS: Equal air entry with minimal crackles CVS: Regular rate and rhythm, normal S1 and S2, no gallops, no murmurs, no rubs ABDOMEN: Soft, nontender. No hepatosplenomegaly, normal bowel sounds, no guarding or rigidity. EXTREMITIES: No clubbing, no edema, no cyanosis, 2+ pulses and upper and lower extremities. MUSCULOSKELETAL: Muscle strength and tone normal. SPINE: No scoliosis or deformity SKIN: No rashes CENTRAL NERVOUS SYSTEM: Alert and oriented -3. No focal deficits, tone is normal in all 4 extremities. PSYCHIATRIC: Alert and oriented -3. Appropriate affect. Intact judgment and insight. - Labs CBC & Chem 7: 04/04/21 07:13 04/04/21 07:13 Assessment and Plan Plan: Assessment: 1 acute pulmonary edema with secondary shortness of breath. The patient's presentation is typical with CHF and pulmonary edema and the proBNP is elevated and the patient responded nicely to diuretics and the patient is currently off the BiPAP and off oxygen currently on room air oxygen. 2 CHF with an underlying ischemic cardiomyopathy with an ejection fraction of 20-25% 3 coronary artery disease, please refer to previous cardiology evaluations in this regard. The patient undergone previous coronary stenting that was done in [place]. 4 history of ventricular tachycardia, episodic, post-AICD placement and currently she is on amiodarone 5 hypertension 6 hyperlipidemia 7 history of colon cancer post-colectomy and followed by systemic chemotherapy 8 history of CVA requiring immediate vascular intervention and removal of clot along the right MCA distribution without any neurologic deficits Plan: Vital signs are stable, Patient is maintaining stable O2 saturations on room air She has been transitioned to oral Lasix No recurrence of arrhythmias Breathing comfortably Anticipate discharge home today I performed a history & physical examination of the patient and discussed their management with my nurse practitioner, Elizabeth Dial. I reviewed the nurse practitioner's note and agree with the documented findings and plan of care. Lung sounds are positive for diminished breath sounds. The findings and the impression was discussed with the patient. I attest to the documentation by the nurse practitioner. Time with Patient: Less than 30
[2021-04-05 13:00] VITALS: BP 130/81; PULSE 50
--- NOTE | 2021-04-11 11:37 | P.DS ---
Providers Date of admission: 04/03/21 02:23 Expected date of discharge: 04/05/21 Attending physician: Ritu Walker Consults: 04/03/21 02:23 Consult Physician Routine Consulting Provider: Suzie Azul Consult Reason/Comments: copd Do you want consulting provider notified?: Yes Consult Physician Routine Consulting Provider: Clary Nice Consult Reason/Comments: chf Do you want consulting provider notified?: Yes Primary care physician: Crystal Cifuentes Hospital Course: Diagnoses on discharge: Acute systolic congestive heart failure exacerbation Underlying history of coronary artery disease with recent angioplasty and stent placement Underlying history of ventricular tachycardia maintained on amiodarone with recent history of ICD placement in February 2021 Mildly Elevated troponin level, cardiology consult requested per cardiology this is likely due to CHF not suggestive ACS Previous history of stroke Underlying history of hypertension Underlying history of hyperlipidemia Previous history of colon cancer Hospital course: Hernan Contreras, is a 75-year-old female who presented to [facility] emergency room with a chief complaint of generalized weakness and shortness of breath He was evaluated in the emergency room vital examination on presentation revealed a temperature of 97.8 pulse 83 respiration 24 pulse ox 84% on 2 L nasal cannula Laboratory data reveals a white blood count of 14.8 hemoglobin 13.1 platelet count 319 sodium 138 potassium 3.5 chloride 107 CO2 21 BUN 14 creatinine 0.94 glucose 153 troponin 0.058 BNP was elevated at 9370 Testing in the emergency room revealed chest x-ray revealed evidence of pulmonary edema, EKG revealed evidence of normal sinus rhythm with right bundle branch block. Patient was admitted to medical floor for further evaluation and treatment Past medical history is significant for history of hypertension, history of hyperlipidemia, history of gastroesophageal reflux disease, history of coronary artery disease with history of angioplasty and stent placement in November 2020, history of ischemic cardiomyopathy, history of ventricular tachycardia patient is maintained on amiodarone she had a life vest and then an ICD placement in February 2021, history of stroke with history of thrombectomy, and history of colon cancer On review of systems patient is alert and oriented 3 she is complaining of generalized weakness and shortness of breath with activity otherwise she denies any complaints . There is no fever or chills no headache or dizziness no chest pain no shortness of breath at rest no palpitation no cough no nausea or vomiting no abdominal pain no diarrhea no blood in the stools no burning with urination no frequency or urgency and no hematuria, there is no weakness or numbness in any of the extremities no change in vision speech or gait. On 04/04/2021 patient's alert and oriented 3. Patient has been transitioned to oral Lasix. Patient has been cleared by cardiology services. Patient requesting to stay 1 more day. Will order repeat labs for a.m. to monitor kidney function. At this time patient denies chest pain or shortness of breath. Patient denies nausea vomiting or diarrhea. Patient denies any urinary burning or frequency. Per cardiology services patient to be discharged on decreased dose of amiodarone. On 04/05/2021 patient's alert and oriented 3. Patient has been cleared for discharge. Patient will be discharged on amiodarone and Lasix. At this time patient denies chest pain or shortness of breath. Patient denies nausea vomiting or diarrhea. Patient denies any urinary burning or frequency Patient Condition at Discharge: Serious Plan - Discharge Summary Discharge Rx Participant: Yes New Discharge Prescriptions: New Amiodarone [Cordarone] 200 mg PO Q12HR 30 Days #60 tab Furosemide [Lasix] 40 mg PO DAILY 30 Days #30 tab Continue Loteprednol Etabonate [Inveltys] 1 drop RIGHT EYE DAILY Loperamide [Imodium] 2 mg PO QID PRN PRN Reason: Loose Stool Melatonin 3 mg PO HS PRN PRN Reason: Insomnia Brimonidine Tartrate/Timolol [Combigan 0.2%-0.5% Eye Drops] 1 drop LEFT EYE BID Bimatoprost [Lumigan .01% Ophth Soln] 1 drop LEFT EYE HS Ticagrelor [Brilinta] 90 mg PO BID Apixaban [Eliquis] 5 mg PO BID Pravastatin Sodium [Pravachol] 80 mg PO HS Pantoprazole Sodium [Protonix] 40 mg PO DAILY Metoprolol Succinate [Toprol XL] 25 mg PO DAILY lisinopriL [Zestril] 2.5 mg PO DAILY Discontinued Amiodarone [Cordarone] 400 mg PO Q12H Discharge Medication List Bimatoprost [Lumigan .01% Ophth Soln] 1 drop LEFT EYE HS 02/27/21 [History] Brimonidine Tartrate/Timolol [Combigan 0.2%-0.5% Eye Drops] 1 drop LEFT EYE BID 02/27/21 [History] Loperamide [Imodium] 2 mg PO QID PRN 02/27/21 [History] Loteprednol Etabonate [Inveltys] 1 drop RIGHT EYE DAILY 02/27/21 [History] Melatonin 3 mg PO HS PRN 02/27/21 [History] Metoprolol Succinate [Toprol XL] 25 mg PO DAILY 02/27/21 [History] Pantoprazole Sodium [Protonix] 40 mg PO DAILY 02/27/21 [History] Pravastatin Sodium [Pravachol] 80 mg PO HS 02/27/21 [History] Ticagrelor [Brilinta] 90 mg PO BID 02/27/21 [History] Apixaban [Eliquis] 5 mg PO BID 04/03/21 [History] lisinopriL [Zestril] 2.5 mg PO DAILY 04/03/21 [History] Amiodarone [Cordarone] 200 mg PO Q12HR 30 Days #60 tab 04/04/21 [Rx] Furosemide [Lasix] 40 mg PO DAILY 30 Days #30 tab 04/04/21 [Rx] Follow up Appointment(s)/Referral(s): Clary Nice MD [STAFF PHYSICIAN] - 04/17/21 1:45 pm (Appointment with Lou LESLIE) Crystal Cifuentes MD [Primary Care Provider] - 04/09/21 2:30 pm [facility], [NON-STAFF] - Patient Instructions/Handouts: Heart Failure (DC) Discharge Disposition: HOME WITH HOME HEALTH SERVICES
== END 2021-04-05 15:35 | disposition home health service (06) | DRG 291 ==
LOC: EC 00:55 → 3SCARD 02:23
PROVIDERS: ADMIT Internal Medicine; ATTEND Internal Medicine
DX: I11.0 Hypertensive heart disease with heart failure (principal); I50.21 Acute systolic (congestive) heart failure; I47.2 Ventricular tachycardia; J44.1 Chronic obstructive pulmonary disease with (acute) exacerbation; N17.9 Acute kidney failure, unspecified; E78.5 Hyperlipidemia, unspecified; E83.42 Hypomagnesemia; I25.10 Atherosclerotic heart disease of native coronary artery without angina pectoris; I25.2 Old myocardial infarction; I25.5 Ischemic cardiomyopathy; I45.10 Unspecified right bundle-branch block; I66.01 Occlusion and stenosis of right middle cerebral artery; R09.02 Hypoxemia; Z79.01 Long term (current) use of anticoagulants; Z79.02 Long term (current) use of antithrombotics/antiplatelets; Z79.899 Other long term (current) drug therapy; Z85.038 Personal history of other malignant neoplasm of large intestine; Z86.73 Personal history of transient ischemic attack (TIA), and cerebral infarction without residual deficits; Z86.79 Personal history of other diseases of the circulatory system; Z95.1 Presence of aortocoronary bypass graft; Z95.5 Presence of coronary angioplasty implant and graft; Z95.810 Presence of automatic (implantable) cardiac defibrillator; K21.9 Gastro-esophageal reflux disease without esophagitis
CPT/HCPCS: 36415; 71045; 80053; 82550; 82553; 83735; 83880; 84100; 84484; 85025; 85610; 85730; 93005; 94640; 94660; 94760; 99291

== ENCOUNTER 2021-04-12 12:46 | Inpatient (IN) | payer MEDICARE ==
[2021-04-12] MEDS ORDERED: SODIUM CHLORIDE 0.9% 500 ML 500 ML IV STA (13:36)
--- NOTE | 2021-04-12 13:40 | ED ---
General Adult HPI - General Chief complaint: Dizziness Stated complaint: Dizziness Time Seen by Provider: 04/12/21 13:00 Source: patient, EMS, RN notes reviewed, old records reviewed Mode of arrival: EMS Limitations: no limitations - History of Present Illness Initial comments: This is a 75-year-old female with past medical history significant for heart attack with multiple stent placements as well as a pacer defibrillator and had a stroke which she states she is fully recovered from. Patient comes in because at 12:15 today she felt very lightheaded and thought she was given a passout. Patient states that symptoms continued and she vomited times one patient states she continues to be mildly nauseated and lightheaded. Patient states she was no t dizzy he did not feel off balance. Patient denies headache patient denies any numbness or focal weakness. Patient denies any chest pain difficulty breathing shortness of breath. Patient denies any palpitations. Patient denies any recent fever chills or cough. Patient states she has no abdominal pain though she vomited once. Patient denies any diarrhea. - Related Data Home Medications Medication Instructions Recorded Confirmed Bimatoprost [Lumigan .01% Ophth 1 drop LEFT EYE HS 02/27/21 04/12/21 Soln] Brimonidine Tartrate/Timolol 1 drop LEFT EYE BID 02/27/21 04/12/21 [Combigan 0.2%-0.5% Eye Drops] Loperamide [Imodium] 2 mg PO QID PRN 02/27/21 04/12/21 Loteprednol Etabonate [Inveltys] 1 drop RIGHT EYE DAILY 02/27/21 04/12/21 Melatonin 3 mg PO HS PRN 02/27/21 04/12/21 Metoprolol Succinate [Toprol XL] 25 mg PO DAILY 02/27/21 04/12/21 Pantoprazole Sodium [Protonix] 40 mg PO DAILY 02/27/21 04/12/21 Pravastatin Sodium [Pravachol] 80 mg PO HS 02/27/21 04/12/21 Ticagrelor [Brilinta] 90 mg PO BID 02/27/21 04/12/21 Apixaban [Eliquis] 5 mg PO BID 04/03/21 04/12/21 lisinopriL [Zestril] 2.5 mg PO DAILY 04/03/21 04/12/21 Previous Rx's Medication Instructions Recorded Amiodarone [Cordarone] 200 mg PO Q12HR 30 Days #60 tab 04/04/21 Furosemide [Lasix] 40 mg PO DAILY 30 Days #30 tab 04/04/21 Allergies Allergy/AdvReac Type Severity Reaction Status Date / Time morphine AdvReac Nausea & Verified 04/12/21 15:22 Vomiting Review of Systems ROS Statement: Those systems with pertinent positive or pertinent negative responses have been documented in the HPI. ROS Other: All systems not noted in ROS Statement are negative. Past Medical History Past Medical History: Cancer, Chest Pain / Angina Additional Past Medical History / Comment(s): Colon. Last Myocardial Infarction Date:: 12/15/20 History of Any Multi-Drug Resistant Organisms: None Reported Past Surgical History: Heart Catheterization, Heart Catheterization With Stent Additional Past Surgical History / Comment(s): CHOLECYSTECTOMY 10/2016, GLAUCOMA, CATARACTS SURG RIGHT EYE 12/13/20 Past Anesthesia/Blood Transfusion Reactions: Postoperative Nausea & Vomiting (PONV) Date of Last Stent Placement:: 12/13/2020 2 STENTS PLACED "FRONT". Past Psychological History: No Psychological Hx Reported Smoking Status: Never smoker Past Alcohol Use History: Occasional Past Drug Use History: None Reported General Exam - General Exam Comments Initial Comments: GENERAL: Patient is well-developed and well-nourished. Patient is nontoxic and well-hydrated and is in mild distress. ENT: Neck is soft and supple. No significant lymphadenopathy is noted. Oropharynx is clear. Moist mucous membranes. Neck has full range of motion without eliciting any pain. EYES: The sclera were anicteric and conjunctiva were pink and moist. Extraocular movements were intact and pupils were equal round and reactive to light. Eyelids were unremarkable. PULMONARY: Unlabored respirations. Good breath sounds bilaterally. No audible rales rhonchi or wheezing was noted. CARDIOVASCULAR: There is a regular rate and rhythm without any murmurs gallops or rubs. ABDOMEN: Soft and nontender with normal bowel sounds. SKIN: Skin is clear with no lesions or rashes and otherwise unremarkable. NEUROLOGIC: Patient is alert and oriented x3. Cranial nerves II through XII are grossly intact. Motor and sensory are also intact. Normal speech, volume and content. Symmetrical smile. MUSCULOSKELETAL: Normal extremities with adequate strength and full range of motion. No lower extremity swelling or edema. No calf tenderness. LYMPHATICS: No significant lymphadenopathy is noted PSYCHIATRIC: Normal psychiatric evaluation. Limitations: no limitations Course Vital Signs 04/12/21 04/12/21 13:03 15:20 Temperature 97.6 F Pulse Rate 58 L 58 L Respiratory 18 16 Rate Blood Pressure 158/62 177/68 O2 Sat by Pulse 99 100 Oximetry Medical Decision Making - Medical Decision Making EKG shows a normal sinus rhythm at 69 bpm OH interval is 170 QRS is 168 QT interval 440 QTC is 471. Patient's EKG shows a right bundle branch block. There is no ST segment elevation Patient was taken to x-ray she went unresponsive when I arrived she was having some agonal breathing 45/m and had no pulses. CPR was begun at that time and when we put her in the trauma to her defibrillator went off and her pulses returned and then she eventually and doesn't remember the event at all. I spoke with Dr. nesbitt at this point time and he wanted amiodarone started. I gave the patient 300 mg amiodarone bolus and then put the patient on a drip. I repeated an EKG showed sinus bradycardia 57 bpm OH interval is 210 QRS is 154 QT interval is 516 QTC is 502. Patient's EKG shows some inverted T waves in all precordial leads. No real changes compared to the earlier EKG. Chest x-ray shows no acute abnormality. I spoke with Dr. Walker he agreed to admit the patient admitted the patient spoke with Dr. Hanna to admit the patient to ICU. Patient continues on an amiodarone drip at this time - Lab Data Result diagrams: 04/12/21 13:47 04/12/21 13:47 Lab Results 04/12/21 04/12/21 04/12/21 Range/Units 13:47 13:47 13:47 WBC 9.5 (3.8-10.6) k/uL RBC 3.92 (3.80-5.40) m/uL Hgb 11.3 L (11.4-16.0) gm/dL Hct 34.7 (34.0-46.0) % MCV 88.5 (80.0-100.0) fL MCH 28.8 (25.0-35.0) pg MCHC 32.6 (31.0-37.0) g/dL RDW 15.8 H (11.5-15.5) % Plt Count 273 (150-450) k/uL MPV 8.3 Neutrophils % 89 % Lymphocytes % 5 % Monocytes % 4 % Eosinophils % 1 % Basophils % 0 % Neutrophils # 8.5 H (1.3-7.7) k/uL Lymphocytes # 0.4 L (1.0-4.8) k/uL Monocytes # 0.3 (0-1.0) k/uL Eosinophils # 0.1 (0-0.7) k/uL Basophils # 0.0 (0-0.2) k/uL PT 13.3 H (9.0-12.0) sec INR 1.3 H (<1.2) APTT 27.8 (22.0-30.0) sec Sodium 138 (137-145) mmol/L Potassium 2.7 L* (3.5-5.1) mmol/L Chloride 99 (98-107) mmol/L Carbon Dioxide 28 (22-30) mmol/L Anion Gap 11 mmol/L BUN 29 H (7-17) mg/dL Creatinine 2.13 H (0.52-1.04) mg/dL Est GFR (CKD-EPI)AfAm 25 (>60 ml/min/1.73 sqM) Est GFR (CKD-EPI)NonAf 22 (>60 ml/min/1.73 sqM) Glucose 124 H (74-99) mg/dL Calcium 9.1 (8.4-10.2) mg/dL Magnesium 1.8 (1.6-2.3) mg/dL Total Bilirubin 0.8 (0.2-1.3) mg/dL AST 37 H (14-36) U/L ALT 26 (4-34) U/L Alkaline Phosphatase 62 (38-126) U/L Troponin I (0.000-0.034) ng/mL Total Protein 6.4 (6.3-8.2) g/dL Albumin 4.0 (3.5-5.0) g/dL 04/12/21 Range/Units 13:47 WBC (3.8-10.6) k/uL RBC (3.80-5.40) m/uL Hgb (11.4-16.0) gm/dL Hct (34.0-46.0) % MCV (80.0-100.0) fL MCH (25.0-35.0) pg MCHC (31.0-37.0) g/dL RDW (11.5-15.5) % Plt Count (150-450) k/uL MPV Neutrophils % % Lymphocytes % % Monocytes % % Eosinophils % % Basophils % % Neutrophils # (1.3-7.7) k/uL Lymphocytes # (1.0-4.8) k/uL Monocytes # (0-1.0) k/uL Eosinophils # (0-0.7) k/uL Basophils # (0-0.2) k/uL PT (9.0-12.0) sec INR (<1.2) APTT (22.0-30.0) sec Sodium (137-145) mmol/L Potassium (3.5-5.1) mmol/L Chloride (98-107) mmol/L Carbon Dioxide (22-30) mmol/L Anion Gap mmol/L BUN (7-17) mg/dL Creatinine (0.52-1.04) mg/dL Est GFR (CKD-EPI)AfAm (>60 ml/min/1.73 sqM) Est GFR (CKD-EPI)NonAf (>60 ml/min/1.73 sqM) Glucose (74-99) mg/dL Calcium (8.4-10.2) mg/dL Magnesium (1.6-2.3) mg/dL Total Bilirubin (0.2-1.3) mg/dL AST (14-36) U/L ALT (4-34) U/L Alkaline Phosphatase (38-126) U/L Troponin I 0.048 H* (0.000-0.034) ng/mL Total Protein (6.3-8.2) g/dL Albumin (3.5-5.0) g/dL Critical Care Time Critical Care Time: Yes Total Critical Care Time: 45 Disposition Clinical Impression: Cardiac arrest, Hypokalemia, Near syncope, Renal insufficiency, Elevated t roponin Disposition: ADMITTED IP TO THIS [facility] Referrals: Crystal Cifuentes MD [Primary Care Provider] - 1-2 days Time of Disposition: 16:09
[2021-04-12 13:57] LABS: Basophils % (A) 0 %; Eosinophils # (A) 0.1 k/uL (0-0.7); Eosinophils % (A) 1 %; HCT 34.7 % (34.0-46.0); HGB 11.3 gm/dL (11.4-16.0); Lymphocytes # (A) 0.4 k/uL (1.0-4.8); Lymphocytes % (A) 5 %; MCH 28.8 pg (25.0-35.0); MCHC 32.6 g/dL (31.0-37.0); MCV 88.5 fL (80.0-100.0); Mean Platelet Volume 8.3; Monocytes # (A) 0.3 k/uL (0-1.0); Monocytes % (A) 4 %; Neutrophils # (A) 8.5 k/uL (1.3-7.7); Neutrophils % (A) 89 %; Platelet Count 273 k/uL (150-450); RBC 3.92 m/uL (3.80-5.40); RDW 15.8 % (11.5-15.5); WBC 9.5 k/uL (3.8-10.6)
[2021-04-12 14:13] LABS: INR 1.3 (<1.2); Partial Thromboplastin Time 27.8 sec (22.0-30.0); Prothrombin Time 13.3 sec (9.0-12.0)
[2021-04-12 14:29] LABS: Calcium 9.1 mg/dL (8.4-10.2); Magnesium 1.8 mg/dL (1.6-2.3); Total Bilirubin 0.8 mg/dL (0.2-1.3); Total Protein 6.4 g/dL (6.3-8.2)
[2021-04-12] MEDS ORDERED: DEXTROSE 5% IN WATER 100 ML with AMIODARONE 150 MG IV ONE (14:30)
--- NOTE | 2021-04-12 14:32 | XR ---
EXAMINATION TYPE: XR chest 1V portable DATE OF EXAM: 04/12/2021 COMPARISON: 04/04/2021 HISTORY: Chest pain TECHNIQUE: Single frontal view of the chest is obtained. FINDINGS: Right port is in unchanged position. Lungs are grossly clear. Cardiac silhouette is unchanged in size with a single lead AICD. IMPRESSION: No acute process.
[2021-04-12 14:36] LABS: Potassium 2.7 mmol/L (3.5-5.1)
[2021-04-12] MEDS ORDERED: DEXTROSE 5% IN WATER 250 ML with AMIODARONE 300 MG IV ONE ×4 (14:40)
[2021-04-12] MEDS ORDERED: POTASSIUM CHLORIDE ER 20 MEQ TAB.ER PO STA (14:46)
[2021-04-12] MEDS ORDERED: POTASSIUM CHLORIDE 20 MEQ in WATER FOR INJECTION 1 100ML.BAG IVPB STA (14:46)
[2021-04-12] MEDS ORDERED: METOCLOPRAMIDE 5 MG/ML 2 ML VIAL IVP STA (14:52)
[2021-04-12] MEDS ORDERED: AMIODARONE 360 MG in DEXTROSE 5% IN WATER 200 ML IV ONE ×4 (15:40→20:30)
[2021-04-12] MEDS ORDERED: NALOXONE 0.4 MG/ML 1 ML VIAL IV PRN (16:28)
[2021-04-12] MEDS: POTASSIUM CHLORIDE 10 MEQ in WATER FOR INJECTION 1 100ML.BAG IVPB SCH ×4 (18:49→23:04)
[2021-04-12] MEDS: AMIODARONE 360 MG in DEXTROSE 5% IN WATER 200 ML IV SCH ×2 (20:50)
[2021-04-13] MEDS: POTASSIUM CHLORIDE 10 MEQ in WATER FOR INJECTION 1 100ML.BAG IVPB SCH ×2 (00:25→01:42)
[2021-04-13] MEDS: AMIODARONE 360 MG in DEXTROSE 5% IN WATER 200 ML IV SCH ×4 (03:46→14:56)
[2021-04-13 09:18] LABS: Basophils # (A) 0.1 k/uL (0-0.2); Basophils % (A) 0 %; Eosinophils # (A) 0.1 k/uL (0-0.7); Eosinophils % (A) 1 %; HCT 34.5 % (34.0-46.0); HGB 11.5 gm/dL (11.4-16.0); Lymphocytes # (A) 0.7 k/uL (1.0-4.8); Lymphocytes % (A) 5 %; MCH 30.1 pg (25.0-35.0); MCHC 33.4 g/dL (31.0-37.0); MCV 90.1 fL (80.0-100.0); Mean Platelet Volume 8.5; Monocytes # (A) 0.6 k/uL (0-1.0); Monocytes % (A) 5 %; Neutrophils # (A) 10.4 k/uL (1.3-7.7); Neutrophils % (A) 86 %; Platelet Count 250 k/uL (150-450); RBC 3.83 m/uL (3.80-5.40); RDW 15.6 % (11.5-15.5)
[2021-04-13 09:29] LABS: Albumin 3.5 g/dL (3.5-5.0); Calcium 9.3 mg/dL (8.4-10.2); Potassium 3.8 mmol/L (3.5-5.1); Total Bilirubin 0.7 mg/dL (0.2-1.3)
[2021-04-13] MEDS: AMIODARONE 200 MG TAB PO SCH ×2 (10:13→20:49)
[2021-04-13] MEDS: APIXABAN 5 MG TAB PO SCH ×2 (10:13→20:49)
[2021-04-13] MEDS: MEXILETINE 150 MG CAP PO SCH ×2 (10:13→20:49)
[2021-04-13] MEDS: SPIRONOLACTONE 25 MG TAB PO SCH (10:14)
[2021-04-13] MEDS: TICAGRELOR 90 MG TAB PO SCH ×2 (10:14→20:49)
--- NOTE | 2021-04-13 10:53 | P.HPIM ---
History of Present Illness H&P Date: 04/13/21 Chief Complaint: Hypokalemia cardiac arrest This is a 75-year-old female patient of Dr. Cifuentes who initially presented to the ER with complaints of feeling lightheaded and feeling like she was going to pass out. Patient did report that she throughout once in route to ER. Upon arrival to the ER patient was sent to x-ray where she became unresponsive and pulseless. CPR was initiated and patient evaluated went off and pulses did return. Patient has past medical history of coronary artery disease with multiple stents, AICD and pacemaker placement and patient was recently hospitalized for CHF in which she was started on Lasix. Upon arrival patient was found to have a low potassium of 2.7. Creatinine also elevated 2.13 and bun 29. Troponins also mildly elevated 0.048 and 0.059. Patient was started on IV amiodarone and cardiology services have been consulted. Dr. Flores also consulted for AICD and pacemaker check. Patient is currently resting comfortably in bed heart rate remains in the 40s. Patient currently on IV amiodarone. Currently on room air sating 100%. Chest x-ray was performed showing no acute pulmonary process. Patient denies any recent illness. Patient denies nausea vomiting or diarrhea at home. Patient denies any urinary burning or frequency Review of Systems please refer to HPI otherwise unremarkable Past Medical History Past Medical History: Cancer, Chest Pain / Angina Additional Past Medical History / Comment(s): Colon. Last Myocardial Infarction Date:: 12/15/20 History of Any Multi-Drug Resistant Organisms: None Reported Past Surgical History: Heart Catheterization, Heart Catheterization With Stent Additional Past Surgical History / Comment(s): CHOLECYSTECTOMY 10/2016, GLAUCOMA, CATARACTS SURG RIGHT EYE 12/13/20 Past Anesthesia/Blood Transfusion Reactions: Postoperative Nausea & Vomiting (PONV) Date of Last Stent Placement:: 12/13/2020 2 STENTS PLACED "FRONT". Past Psychological History: No Psychological Hx Reported Smoking Status: Never smoker Past Alcohol Use History: Occasional Past Drug Use History: None Reported Medications and Allergies Home Medications Medication Instructions Recorded Confirmed Type Bimatoprost [Lumigan .01% Ophth 1 drop LEFT EYE HS 02/27/21 04/12/21 History Soln] Brimonidine Tartrate/Timolol 1 drop LEFT EYE BID 02/27/21 04/12/21 History [Combigan 0.2%-0.5% Eye Drops] Loperamide [Imodium] 2 mg PO QID PRN 02/27/21 04/12/21 History Loteprednol Etabonate [Inveltys] 1 drop RIGHT EYE DAILY 02/27/21 04/12/21 History Melatonin 3 mg PO HS PRN 02/27/21 04/12/21 History Metoprolol Succinate [Toprol XL] 25 mg PO DAILY 02/27/21 04/12/21 History Pantoprazole Sodium [Protonix] 40 mg PO DAILY 02/27/21 04/12/21 History Pravastatin Sodium [Pravachol] 80 mg PO HS 02/27/21 04/12/21 History Ticagrelor [Brilinta] 90 mg PO BID 02/27/21 04/12/21 History Apixaban [Eliquis] 5 mg PO BID 04/03/21 04/12/21 History lisinopriL [Zestril] 2.5 mg PO DAILY 04/03/21 04/12/21 History Amiodarone [Cordarone] 200 mg PO Q12HR 30 Days #60 tab 04/04/21 04/12/21 Rx Allergies Allergy/AdvReac Type Severity Reaction Status Date / Time morphine AdvReac Nausea & Verified 04/12/21 15:22 Vomiting Physical Exam Vitals: Vital Signs Temp Pulse Resp BP Pulse Ox 04/13/21 10:00 56 L 18 127/60 100 04/13/21 09:00 46 L 18 121/57 100 04/13/21 08:00 47 L 18 123/55 100 04/13/21 07:00 47 L 17 130/58 100 04/13/21 06:00 48 L 18 134/58 100 04/13/21 05:00 49 L 16 145/61 100 04/13/21 04:00 51 L 18 142/66 100 04/13/21 03:00 50 L 14 141/67 100 04/13/21 02:00 51 L 15 140/67 100 04/13/21 01:00 50 L 16 134/61 100 04/13/21 00:34 51 L 17 140/62 100 04/12/21 17:21 68 16 147/87 96 04/12/21 16:27 85 16 143/67 99 04/12/21 15:20 58 L 16 177/68 100 04/12/21 13:03 97.6 F 58 L 18 158/62 99 Intake and Output 04/12/21 04/13/21 04/13/21 22:59 06:59 14:59 Intake Total 200 Balance 200 Intake: Intake, IV Titration 200 Amount Amiodarone 360 mg In 200 Dextrose 5% in Water 200 ml @ 1 MG/MIN 33.333 mls/ hr IV .Q6H [facility] Rx#: [id number] Head normocephalic Neck supple Lungs clear to auscultation bilaterally no wheezing or crackles Heart regular rate and rhythm S1-S2, no rub or gallop Abdomen is soft nontender nondistended positive bowel sounds no hepatosplenomegaly Extremities no edema Neuro alert and orientated to 3 Results CBC & Chem 7: 04/13/21 07:37 04/13/21 07:37 Labs: Abnormal Lab Results - Last 24 Hours (Table) 04/12/21 04/12/21 04/12/21 Range/Units 13:47 13:47 13:47 WBC (3.8-10.6) k/uL Hgb 11.3 L (11.4-16.0) gm/dL RDW 15.8 H (11.5-15.5) % Neutrophils # 8.5 H (1.3-7.7) k/uL Lymphocytes # 0.4 L (1.0-4.8) k/uL PT 13.3 H (9.0-12.0) sec INR 1.3 H (<1.2) Potassium 2.7 L* (3.5-5.1) mmol/L BUN 29 H (7-17) mg/dL Creatinine 2.13 H (0.52-1.04) mg/dL Glucose 124 H (74-99) mg/dL AST 37 H (14-36) U/L ALT (4-34) U/L Troponin I (0.000-0.034) ng/mL Total Protein (6.3-8.2) g/dL 04/12/21 04/12/21 04/13/21 Range/Units 13:47 14:45 07:37 WBC (3.8-10.6) k/uL Hgb (11.4-16.0) gm/dL RDW (11.5-15.5) % Neutrophils # (1.3-7.7) k/uL Lymphocytes # (1.0-4.8) k/uL PT (9.0-12.0) sec INR (<1.2) Potassium (3.5-5.1) mmol/L BUN 20 H (7-17) mg/dL Creatinine 1.32 H (0.52-1.04) mg/dL Glucose 105 H (74-99) mg/dL AST 107 H (14-36) U/L ALT 102 H (4-34) U/L Troponin I 0.048 H* 0.059 H* (0.000-0.034) ng/mL Total Protein 6.0 L (6.3-8.2) g/dL 04/13/21 Range/Units 07:37 WBC 12.0 H (3.8-10.6) k/uL Hgb (11.4-16.0) gm/dL RDW 15.6 H (11.5-15.5) % Neutrophils # 10.4 H (1.3-7.7) k/uL Lymphocytes # 0.7 L (1.0-4.8) k/uL PT (9.0-12.0) sec INR (<1.2) Potassium (3.5-5.1) mmol/L BUN (7-17) mg/dL Creatinine (0.52-1.04) mg/dL Glucose (74-99) mg/dL AST (14-36) U/L ALT (4-34) U/L Troponin I (0.000-0.034) ng/mL Total Protein (6.3-8.2) g/dL Assessment and Plan Assessment: 1. Cardiac arrest secondary to arrhythmia. Defibrillator fired with pulses returning. Cardiology services consulted. Patient currently maintained on amiodarone 2. Hypokalemia likely secondary to initiation of Lasix. Replace per protocol repeat potassium 3.8 3. Recent hospitalization for acute systolic congestive heart failure. Patient was started on Lasix as has been adjusted to Aldactone per cardiology services to prevent hypokalemia 4. Underlying history of ventricular tachycardia. AICD placement in February 2021 5. Mildly elevated troponin level. Cardiology services have been consulted 6. Underlying history of coronary artery disease with recent angioplasty and stent placement. Patient maintained on Brilinta 7. History of stroke 8. History of essential hypertension 9. History of hyperlipidemia 10. History of colon cancer Cardiology services consulted Patient has been admitted to the intensive care unit awaiting bed Maintained on IV amiodarone Dr. Upton consulted for EP Repeat labs ordered
--- NOTE | 2021-04-13 11:55 | P.EPCON ---
Electrophysiology Consult - EP Consult Electrophysiology Consult: Summary note Please see full dictation is practitioner 75-year-old female who has known coronary artery disease history of [place] history of stenting in [place], ischemic cardio myopathy status post LifeVest She had VT or ventricular fibrillation and a shock from the LifeVest At that time she had diarrhea low magnesium and low potassium Subsequently a single chamber ICD was implanted by Dr. Thomas, [employer] She was readmitted with heart failure symptoms and was treated with oral Lasix and discharged home about a week back She came into the hospital to the ER with an episode of loss of consciousness and dizzy spells While in the radiology department she had an episode of VT/VF and received an ICD shock The patient had completely passed out Once again she has a low potassium She is currently on IV amiodarone Previously she was on oral amiodarone She is also started on oral mexiletine as well as Aldactone There is worsening of renal function and this time but last week her renal function was better, acute and chronic kidney disease Suggest Avoid overdiuresis This lady is quite sensitive to furosemide and her renal function is definitely worse since last week Agree with oral Aldactone, start oral magnesium, oral potassium as needed Agree with IV amiodarone for now and adding mexiletine to suppress her ventricular tachycardia ICD interrogation reveals very frequent runs of nonsustained ventricular tachycardia and nonsustained ventricular fibrillation mostly on April 12 likely worsened in the setting of hypokalemia although she does have a clear substrate for this She has sinus bradycardia. I would use carvedilol instead of metoprolol especially since he is had VF Hold lisinopril Once her renal function improves and approaches baseline out consider ENTRESTO to unload her left ventricle and hopefully her diuretic requirements but acutely for Lasix unless her on ENTRESTO This is best done as an inpatient since she is quite sensitive to diuretics, programmed to ventricular fibrillation with frequent nonsustained episodes final impression Ischemic cardio myopathy Q waves on twelve-lead EKG in the anterior leads Sinus bradycardia, right bundle branch block pattern Congestive heart failure with recent exacerbation Mild chronic kidney disease, worsened with IV diuretics Recurrent episodes of nonsustained fast VT and nonsustained ventricular fibrillation in the last 24-48 hours Syncope at home Syncope here in the radiology Department Documented fast VT with antitachycardia pacing on 2 occasions. Both failed but she spontaneously terminated to sinus rhythm In the radiology department she had an episode of ventricular fibrillation and required an ICD shock Hypokalemia first in the setting of diarrhea previously and now in the setting of average doses of Lasix While her episodes of ventricular fibrillation occurred in the setting of hypokalemia she has a clear substrate for VT VF 2 days after the ICD was implanted she had an episode of CVA with the middle cerebral artery occlusion which is clearly embolic. She is now on ELIIS To get records from [facility] to see what the exact diagnosis was. This is most likely paroxysmal atrial fibrillation but we would like to confirm this For now amiodarone plus mexiletine along with heart failure medications including carvedilol and ENTRESTO and Aldactone should be pursued as an inpatient
[2021-04-13] MEDS: carvediloL 6.25 MG TAB PO SCH ×2 (12:41→16:45)
--- NOTE | 2021-04-13 13:41 | P.CNPUL ---
History of Present Illness Consult date: 04/13/21 Requesting physician: Ritu Walker Reason for consult: dyspnea Chief complaint: Dizziness, syncope History of present illness: This is a very pleasant 75-year-old female patient with a known history of coronary artery disease with previous stent placement, ischemic cardiomyopathy status post ICD placement and 2 days following developed an embolic CVA involving the middle cerebral artery and transferred to [facility], currently on Eliquis, congestive heart failure and recent adjustment of diuretics. She presented here to the emergency room yesterday after developing a syncopal episode and subsequent shock from her device. She also became unresponsive while in the radiology department. Brief CPR and received ICD shock. She was found to be hypokalemic with a potassium of 2.7. She was initiated on amiodarone drip and the plan was for her to be admitted to the ICU. She is seen today in consultation in the emergency room. Currently sitting up in a stretcher. Awake and alert in no acute distress. Maintaining O2 saturation of 200% on 3 L/m per nasal cannula. Currently sinus bradycardia. Right bundle branch block. No further arrhythmias this morning. Chest x-ray reveals no acute pulmonary process. White count 12.0. Hemoglobin 11.5. Sodium 139. Potassium up to 3.8. Creatinine 1.32. AST 107. ALT 102. Magnesium 1.8. Troponin 0.048, 0.059. She was transitioned back to oral amiodarone. Initiated on mexiletine per EP services. Anticoagulated with Eliquis. Remains on Brilinta. Electrolytes being replaced. Review of Systems REVIEW OF SYSTEMS: CONSTITUTIONAL: Denies any recent significant weight loss or weight gain. EYES: Denies change in vision. EARS, NOSE, MOUTH, THROAT: Denies headaches, denies sore throat. CARDIOVASCULAR: Syncopal episode. VT/VF RESPIRATORY: Denies shortness of breath, cough, congestion or hemoptysis. GASTROINTESTINAL: Denies change in appetite, denies abdominal pain GENITOURINARY: Denies hematuria, denies infections. MUSKULOSKELETAL: Denies pain, denies swelling. INTEGUMENTARY: Denies rash, denies eczema. NEUROLOGICAL: Denies recent memory loss, no recent seizure activity. PSYCHIATRIC: Denies anxiety, denies depression. HEMATOLOGIC/LYMPHATIC: Denies anemia, denies enlarged lymph nodes. Past Medical History Past Medical History: Cancer, Chest Pain / Angina Additional Past Medical History / Comment(s): Colon. Last Myocardial Infarction Date:: 12/15/20 History of Any Multi-Drug Resistant Organisms: None Reported Past Surgical History: Heart Catheterization, Heart Catheterization With Stent Additional Past Surgical History / Comment(s): CHOLECYSTECTOMY 10/2016, GLAUCOMA, CATARACTS SURG RIGHT EYE 12/13/20 Past Anesthesia/Blood Transfusion Reactions: Postoperative Nausea & Vomiting (PONV) Date of Last Stent Placement:: 12/13/2020 2 STENTS PLACED "FRONT". Past Psychological History: No Psychological Hx Reported Smoking Status: Never smoker Past Alcohol Use History: Occasional Past Drug Use History: None Reported Medications and Allergies Home Medications Medication Instructions Recorded Confirmed Type Bimatoprost [Lumigan .01% Ophth 1 drop LEFT EYE HS 02/27/21 04/12/21 History Soln] Brimonidine Tartrate/Timolol 1 drop LEFT EYE BID 02/27/21 04/12/21 History [Combigan 0.2%-0.5% Eye Drops] Loperamide [Imodium] 2 mg PO QID PRN 02/27/21 04/12/21 History Loteprednol Etabonate [Inveltys] 1 drop RIGHT EYE DAILY 02/27/21 04/12/21 History Melatonin 3 mg PO HS PRN 02/27/21 04/12/21 History Metoprolol Succinate [Toprol XL] 25 mg PO DAILY 02/27/21 04/12/21 History Pantoprazole Sodium [Protonix] 40 mg PO DAILY 02/27/21 04/12/21 History Pravastatin Sodium [Pravachol] 80 mg PO HS 02/27/21 04/12/21 History Ticagrelor [Brilinta] 90 mg PO BID 02/27/21 04/12/21 History Apixaban [Eliquis] 5 mg PO BID 04/03/21 04/12/21 History lisinopriL [Zestril] 2.5 mg PO DAILY 04/03/21 04/12/21 History Amiodarone [Cordarone] 200 mg PO Q12HR 30 Days #60 tab 04/04/21 04/12/21 Rx Allergies Allergy/AdvReac Type Severity Reaction Status Date / Time morphine AdvReac Nausea & Verified 04/12/21 15:22 Vomiting Physical Exam Vitals: Vital Signs Pulse Resp BP Pulse Ox 04/13/21 12:00 47 L 18 119/53 100 04/13/21 11:00 53 L 18 119/53 100 04/13/21 10:00 56 L 18 127/60 100 04/13/21 09:00 46 L 18 121/57 100 04/13/21 08:00 47 L 18 123/55 100 04/13/21 07:00 47 L 17 130/58 100 04/13/21 06:00 48 L 18 134/58 100 04/13/21 05:00 49 L 16 145/61 100 04/13/21 04:00 51 L 18 142/66 100 04/13/21 03:00 50 L 14 141/67 100 04/13/21 02:00 51 L 15 140/67 100 04/13/21 01:00 50 L 16 134/61 100 04/13/21 00:34 51 L 17 140/62 100 04/12/21 17:21 68 16 147/87 96 04/12/21 16:27 85 16 143/67 99 04/12/21 15:20 58 L 16 177/68 100 Intake and Output 04/12/21 04/13/21 04/13/21 22:59 06:59 14:59 Intake Total 200 Balance 200 Intake: Intake, IV Titration 200 Amount Amiodarone 360 mg In 200 Dextrose 5% in Water 200 ml @ 1 MG/MIN 33.333 mls/ hr IV .Q6H [facility] Rx#: [id number] GENERAL EXAM: Alert, very pleasant 75-year-old female patient, and 3 L nasal cannula, O2 saturation 100%, fairly comfortable in no apparent distress. HEAD: Normocephalic. EYES: Normal reaction of pupils, equal size. NOSE: Clear with pink turbinates. THROAT: No erythema or exudates. NECK: No masses, no JVD. CHEST: No chest wall deformity. LUNGS: Equal air entry with no crackles, wheeze, rhonchi or dullness. CVS: S1 and S2 normal with no audible murmur, regular rhythm. ABDOMEN: No hepatosplenomegaly, normal bowel sounds, no guarding or rigidity. SPINE: No scoliosis or deformity SKIN: No rashes CENTRAL NERVOUS SYSTEM: No focal deficits, tone is normal in all 4 extremities. EXTREMITIES: There is no peripheral edema. No clubbing, no cyanosis. Peripheral pulses are intact. Results - Laboratory Findings CBC and BMP: 04/13/21 07:37 04/13/21 07:37 PT/INR, D-dimer PT 13.3 sec (9.0-12.0) H 04/12/21 13:47 INR 1.3 (<1.2) H 04/12/21 13:47 Abnormal lab findings: Abnormal Labs 04/12/21 04/12/21 04/12/21 13:47 13:47 13:47 WBC Hgb 11.3 L RDW 15.8 H Neutrophils # 8.5 H Lymphocytes # 0.4 L PT 13.3 H INR 1.3 H Potassium 2.7 L* BUN 29 H Creatinine 2.13 H Glucose 124 H AST 37 H ALT Troponin I Total Protein 04/12/21 04/12/21 04/13/21 13:47 14:45 07:37 WBC Hgb RDW Neutrophils # Lymphocytes # PT INR Potassium BUN 20 H Creatinine 1.32 H Glucose 105 H AST 107 H ALT 102 H Troponin I 0.048 H* 0.059 H* Total Protein 6.0 L 04/13/21 07:37 WBC 12.0 H Hgb RDW 15.6 H Neutrophils # 10.4 H Lymphocytes # 0.7 L PT INR Potassium BUN Creatinine Glucose AST ALT Troponin I Total Protein - Diagnostic Findings Chest x-ray: image reviewed Assessment and Plan Assessment: 1 Syncopal episode secondary to VT/VF requiring shock from AICD 2 Ischemic cardiomyopathy with severely impaired left ventricular systolic function ejection fraction 25-30%, status post AICD placement on 03/01/2021 3 Recent CVA, 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 Plan: The patient was seen and evaluated by Dr. Hanna She could be downgraded to the selective care unit Remains on oral amiodarone Initiated on mexiletine Electrolyte replacement Titrate the FiO2 down as tolerated We will continue to follow and make further recommendations based on her clinical status I, the cosigning physician, performed a history & physical examination of the patient. Lungs sounds are clear. Maintaining good O2 saturations in the 90s on 3 L/m per nasal cannula. I discussed the assessment and plan of care with my nurse practitioner, Ying Campa. I attest to the above consultation as dictated by her. Time with Patient: Greater than 30
--- NOTE | 2021-04-13 13:47 | P.CRDCN ---
History of Present Illness History of present illness: HISTORY OF PRESENTING ILLNESS This is a pleasant 75-year-old female past medical history significant for coronary artery disease status post PCI proximal LAD and mid LAD 11/2020, ischemic cardiomyopathy status post AICD placement in 02/2021, dyslipidemia, hypertension, CVA. She follows in the office with Dr. Nice. We have been asked to see in consultation for cardiac arrest near-syncope. Patient is seen and examined in the emergency department no acute distress. Patient presents to the emergency department with complaint lightheadedness and presyncope. She also was admitted with hypokalemia. Yesterday patient was taken to x-ray and she went unresponsive, she had agonal breathing, she had no pulse. CPR was begun at that time. Her ICD went off and her pulses returned. Patient does not remember this event. Patient was started on amiodarone drip. Reviewing her device check- She did have an Episode of VF/VT and received an ICD shock. Patient seen and examined at bedside, no acute distress. She does state chest pain, shortness of breath, lightheadedness dizziness at this time. She denies any diarrhea, nausea or vomiting. She was admitted in 02/2021 due to diarrhea was also discharged on LifeVest. She had recurrent ventricular tachycardia requiring shocks and subsequently received an ICD. On the following day patient had symptoms of CVA with the middle cerebral artery occlusion which is clearly embolic, received TPA and was transported [facility]. She started anticoagulation Eliquis and Brilinta. While she was inpatient at [facility] there is no documentations of atrial fibrillation during her hospital stay and her echocardiogram showed a severely impaired systolic function no evidence of apical thrombus. DIAGNOSTICS EKG reveals sinus rhythm, heart rate 69, left axis deviation, right bundle branch block with T wave inversions in precordial leads. Chest xray no acute cardiopulmonary process. ICD interrogation reveals epidsode of VF/VT with received ICD shock. She also has had frequent runs of nonsustained ventricular tachycardia and nonsustained ventricular fibrillation, mostly yesterday April 12. Laboratory reviewed, on admission sodium 1:30, potassium 2.7, BUN 29, serum creatinine 2.1, magnesium 1.8, troponin 0.04, 0.05. Current home cardiac medications includeamiodarone 200 mg twice daily, Eliquis 5 mg twice a day, metoprolol succinate 25 mg daily, pravastatin 80 mg daily, Brilinta 90 mg twice daily, lisinopril 2.5 mg daily Most recent echocardiogram 02/27/2021 revealed an EF 25-30%, mild MR REVIEW OF SYSTEMS At the time of my exam: CONSTITUTIONAL: Denies fever or chills. CARDIOVASCULAR: +syncope Denies chest pain, shortness of breath, orthopnea, PND or palpitations. RESPIRATORY: Denies cough. GASTROINTESTINAL: Denies abdominal pain, diarrhea, constipation, nausea or vomiting. MUSCULOSKELETAL: Denies myalgias. NEUROLOGIC: +dizziness, Denies numbness, tingling, headacbe or weakness. ENDOCRINE: Denies fatigue, weight change, polydipsia or polyurina. GENITOURINARY: Denies burning, hematuria or urgency with micturation. HEMATOLOGIC: Denies history of anemia or bleeding. PHYSICAL EXAMINATION Blood pressure 119/53 heart rate 47 afebrile and maintaining oxygen saturation 100% 3L nasal cannula CONSTITUTIONAL: No apparent distress. HEENT: Head is normocephalic. Pupils are equal, round. Sclerae anicteric. Mucous membranes of the mouth are moist. No JVD. No carotid bruit. CHEST EXAMINATION: Lungs are clear to auscultation. Her chest is sore HEART EXAMINATION: Regular rate and rhythm. S1, S2 heard. Systolic murmur ABDOMEN: Soft, nontender. Positive bowel sounds. EXTREMITIES: 2+ peripheral pulses, no lower extremity edema and no calf tenderness. NEUROLOGIC EXAMINATION: Patient is awake, alert and oriented x3. ASSESSMENT Dizziness, Lightheadedness Syncope Episode of Vfib/Vtach with ICD shock Hypokalemia Episodes of nonsustained fast VT and nonsustained ventricular fibrillation Sinus bradycardia, right bundle branch block pattern Ischemic cardiomyopathy Congestive systolic heart failure PLAN Replace potassium Start amiodarone 400mg BID, discontinue drip Continue Eliquis, Brilinta Start Mexiletine 150mg BID, Coreg 6.25mg BID Hold Lasix Start Spironolactone 25mg daily Monitor renal function and electrolytes Continue cardiac telemetry Limited Echo Dr. Upton, EP consulted to see patient Further recommendations based on clinical course Nurse Practitioner note has been reviewed, I agree with a documented findings and plan of care. Patient was seen and examined. Past Medical History Past Medical History: Cancer, Chest Pain / Angina Additional Past Medical History / Comment(s): Colon. Last Myocardial Infarction Date:: 12/15/20 History of Any Multi-Drug Resistant Organisms: None Reported Past Surgical History: Heart Catheterization, Heart Catheterization With Stent Additional Past Surgical History / Comment(s): CHOLECYSTECTOMY 10/2016, GLAUCOMA, CATARACTS SURG RIGHT EYE 12/13/20 Past Anesthesia/Blood Transfusion Reactions: Postoperative Nausea & Vomiting (PONV) Date of Last Stent Placement:: 12/13/2020 2 STENTS PLACED "FRONT". Past Psychological History: No Psychological Hx Reported Smoking Status: Never smoker Past Alcohol Use History: Occasional Past Drug Use History: None Reported Medications and Allergies Home Medications Medication Instructions Recorded Confirmed Type Bimatoprost [Lumigan .01% Ophth 1 drop LEFT EYE HS 02/27/21 04/12/21 History Soln] Brimonidine Tartrate/Timolol 1 drop LEFT EYE BID 02/27/21 04/12/21 History [Combigan 0.2%-0.5% Eye Drops] Loperamide [Imodium] 2 mg PO QID PRN 02/27/21 04/12/21 History Loteprednol Etabonate [Inveltys] 1 drop RIGHT EYE DAILY 02/27/21 04/12/21 History Melatonin 3 mg PO HS PRN 02/27/21 04/12/21 History Metoprolol Succinate [Toprol XL] 25 mg PO DAILY 02/27/21 04/12/21 History Pantoprazole Sodium [Protonix] 40 mg PO DAILY 02/27/21 04/12/21 History Pravastatin Sodium [Pravachol] 80 mg PO HS 02/27/21 04/12/21 History Ticagrelor [Brilinta] 90 mg PO BID 02/27/21 04/12/21 History Apixaban [Eliquis] 5 mg PO BID 04/03/21 04/12/21 History lisinopriL [Zestril] 2.5 mg PO DAILY 04/03/21 04/12/21 History Amiodarone [Cordarone] 200 mg PO Q12HR 30 Days #60 tab 04/04/21 04/12/21 Rx Allergies Allergy/AdvReac Type Severity Reaction Status Date / Time morphine AdvReac Nausea & Verified 04/12/21 15:22 Vomiting Physical Exam Vitals: Vital Signs Temp Pulse Resp BP Pulse Ox 04/13/21 07:00 47 L 17 130/58 100 04/13/21 06:00 48 L 18 134/58 100 04/13/21 05:00 49 L 16 145/61 100 04/13/21 04:00 51 L 18 142/66 100 04/13/21 03:00 50 L 14 141/67 100 04/13/21 02:00 51 L 15 140/67 100 04/13/21 01:00 50 L 16 134/61 100 04/13/21 00:34 51 L 17 140/62 100 04/12/21 17:21 68 16 147/87 96 04/12/21 16:27 85 16 143/67 99 04/12/21 15:20 58 L 16 177/68 100 04/12/21 13:03 97.6 F 58 L 18 158/62 99 Intake and Output 04/12/21 04/13/21 04/13/21 22:59 06:59 14:59 Intake Total 200 Balance 200 Intake: Intake, IV Titration 200 Amount Amiodarone 360 mg In 200 Dextrose 5% in Water 200 ml @ 1 MG/MIN 33.333 mls/ hr IV .Q6H [facility] Rx#: [id number] Results 04/13/21 07:37 04/13/21 07:37 Cardiac Enzymes 04/12/21 04/12/21 04/12/21 Range/Units 13:47 13:47 14:45 AST 37 H (14-36) U/L Troponin I 0.048 H* 0.059 H* (0.000-0.034) ng/mL Coagulation 04/12/21 Range/Units 13:47 PT 13.3 H (9.0-12.0) sec APTT 27.8 (22.0-30.0) sec CBC 04/12/21 Range/Units 13:47 WBC 9.5 (3.8-10.6) k/uL RBC 3.92 (3.80-5.40) m/uL Hgb 11.3 L (11.4-16.0) gm/dL Hct 34.7 (34.0-46.0) % Plt Count 273 (150-450) k/uL Comprehensive Metabolic Panel 04/12/21 Range/Units 13:47 Sodium 138 (137-145) mmol/L Potassium 2.7 L* (3.5-5.1) mmol/L Chloride 99 (98-107) mmol/L Carbon Dioxide 28 (22-30) mmol/L BUN 29 H (7-17) mg/dL Creatinine 2.13 H (0.52-1.04) mg/dL Glucose 124 H (74-99) mg/dL Calcium 9.1 (8.4-10.2) mg/dL AST 37 H (14-36) U/L ALT 26 (4-34) U/L Alkaline Phosphatase 62 (38-126) U/L Total Protein 6.4 (6.3-8.2) g/dL Albumin 4.0 (3.5-5.0) g/dL Current Medications Generic Name Dose Route Start Last Admin Trade Name Freq PRN Reason Stop Dose Admin Amiodarone HCl 360 mg/ 200 mls @ 33.333 mls/hr 04/12/21 20:30 04/13/21 03:46 Dextrose/Water IV 04/13/21 20:30 1 mg/min .Q6H [place] 33.333 mls/hr Administration Protocol 1 MG/MIN Naloxone HCl 0.2 mg 04/12/21 16:28 Naloxone 0.4 Mg/Ml 1 Ml Vial IV Q2M PRN Opioid Reversal Intake and Output 04/12/21 04/13/21 04/13/21 22:59 06:59 14:59 Intake Total 200 Balance 200 Intake: Intake, IV Titration 200 Amount Amiodarone 360 mg In 200 Dextrose 5% in Water 200 ml @ 1 MG/MIN 33.333 mls/ hr IV .Q6H [facility] Rx#: [id number] 04/12/21 13:47 04/12/21 13:47
[2021-04-13] MEDS: TIMOLOL 0.5% OPHTH DROPS 5 ML BTL LEFT EYE SCH (20:49)
[2021-04-13] MEDS: LATANOPROST 0.005% OPHTH DROPS 2.5 ML BTL LEFT EYE SCH (20:50)
[2021-04-13] MEDS: BRIMONIDINE TARTRATE 0.2% DROPS 5 ML BTL LEFT EYE SCH (20:50)
[2021-04-13] MEDS: PRAVASTATIN SODIUM 80 MG TAB PO SCH (20:50)
[2021-04-14] MEDS: carvediloL 6.25 MG TAB PO SCH ×2 (06:28→18:18)
[2021-04-14] MEDS: PANTOPRAZOLE 40 MG TABLET PO SCH (06:28)
[2021-04-14] MEDS: NON FORMULARY DRUG (Loteprednol Etabonate [Inveltys] 2.8 ML Drops.Susp) RIGHT EYE SCH (08:04)
[2021-04-14] MEDS: SPIRONOLACTONE 25 MG TAB PO SCH (08:10)
[2021-04-14] MEDS: APIXABAN 5 MG TAB PO SCH ×2 (08:10→20:06)
[2021-04-14] MEDS: AMIODARONE 200 MG TAB PO SCH ×2 (08:10→20:05)
[2021-04-14] MEDS: TICAGRELOR 90 MG TAB PO SCH ×2 (08:10→20:05)
[2021-04-14] MEDS: BRIMONIDINE TARTRATE 0.2% DROPS 5 ML BTL LEFT EYE SCH ×2 (08:11→20:05)
[2021-04-14] MEDS: TIMOLOL 0.5% OPHTH DROPS 5 ML BTL LEFT EYE SCH ×2 (08:11→20:05)
[2021-04-14] MEDS: MEXILETINE 150 MG CAP PO SCH ×2 (08:12→20:06)
[2021-04-14 08:29] LABS: Basophils % (A) 0 %; Eosinophils # (A) 0.2 k/uL (0-0.7); Eosinophils % (A) 1 %; HCT 39.3 % (34.0-46.0); HGB 12.2 gm/dL (11.4-16.0); Hypochromasia Slight; Lymphocytes # (A) 0.6 k/uL (1.0-4.8); Lymphocytes % (A) 5 %; MCH 28.4 pg (25.0-35.0); MCV 91.6 fL (80.0-100.0); Mean Platelet Volume 8.6; Monocytes # (A) 0.5 k/uL (0-1.0); Monocytes % (A) 4 %; Neutrophils # (A) 11.3 k/uL (1.3-7.7); Neutrophils % (A) 89 %; Platelet Count 245 k/uL (150-450); RDW 15.7 % (11.5-15.5); WBC 12.7 k/uL (3.8-10.6)
[2021-04-14 08:39] LABS: Calcium 9.6 mg/dL (8.4-10.2)
[2021-04-14 08:40] LABS: Magnesium 1.6 mg/dL (1.6-2.3); Potassium 3.8 mmol/L (3.5-5.1); Total Protein 6.6 g/dL (6.3-8.2)
[2021-04-14 08:41] LABS: Albumin 3.8 g/dL (3.5-5.0)
--- NOTE | 2021-04-14 09:10 | P.PN ---
Subjective Progress Note Date: 04/14/21 This is a 75-year-old female patient of Dr. Cifuentes who initially presented to the ER with complaints of feeling lightheaded and feeling like she was going to pass out. Patient did report that she throughout once in route to ER. Upon arrival to the ER patient was sent to x-ray where she became unresponsive and pulseless. CPR was initiated and patient evaluated went off and pulses did return. Patient has past medical history of coronary artery disease with multiple stents, AICD and pacemaker placement and patient was recently hospitalized for CHF in which she was started on Lasix. Upon arrival patient was found to have a low potassium of 2.7. Creatinine also elevated 2.13 and bun 29. Troponins also mildly elevated 0.048 and 0.059. Patient was started on IV amiodarone and cardiology services have been consulted. Dr. Flores also consulted for AICD and pacemaker check. Patient is currently resting comfortably in bed heart rate remains in the 40s. Patient currently on IV amiodarone. Currently on room air sating 100%. Chest x-ray was performed showing no acute pulmonary process. Patient denies any recent illness. Patient denies nausea vomiting or diarrhea at home. Patient denies any urinary burning or frequency On 04/14/2021 patient is alert and oriented 3. Patient reports she had an uneventful night was able to get some sleep. Medications were adjusted yesterday to Core, Mexiti,l and Aldactone. Heart rate remains in the 40s and 50s. Dr. Flores following for AICD and pacemaker. Pulmoary. services also consulted. We'll continue to monitor patient and replace electrolytes as needed. At this time patient denies chest pain or shortness of breath. Patient denies nausea vomiting or diarrhea. Patient denies any urinary burning or frequency Objective - Vital Signs Vital signs: Vital Signs Temp 97.9 F 04/14/21 08:00 Pulse 50 L 04/14/21 08:00 Resp 16 04/14/21 08:00 BP 120/60 04/14/21 08:00 Pulse Ox 100 04/14/21 08:00 Intake & Output 04/13/21 04/14/21 04/14/21 18:59 06:59 18:59 Intake Total 660 480 118 Output Total 300 Balance 360 480 118 Weight 58.287 kg 58.8 kg Intake: Oral 660 480 118 Output: Urine 300 Other: Voiding Method Toilet # Voids 1 - Exam Head normocephalic Neck supple Lungs clear to auscultation bilaterally no wheezing or crackles Heart regular rate and rhythm S1-S2, no rub or gallop Abdomen is soft nontender nondistended positive bowel sounds no hepatosplenome tyrell Extremities no edema Neuro alert and orientated to 3 - Labs CBC & Chem 7: 04/14/21 07:46 04/14/21 07:46 Labs: Abnormal Lab Results - Last 24 Hours (Table) 04/13/21 04/13/21 04/14/21 Range/Units 07:37 07:37 07:46 WBC 12.0 H (3.8-10.6) k/uL RDW 15.6 H (11.5-15.5) % Neutrophils # 10.4 H (1.3-7.7) k/uL Lymphocytes # 0.7 L (1.0-4.8) k/uL Sodium 136 L (137-145) mmol/L BUN 20 H 20 H (7-17) mg/dL Creatinine 1.32 H 1.15 H (0.52-1.04) mg/dL Glucose 105 H 119 H (74-99) mg/dL AST 107 H 86 H (14-36) U/L ALT 102 H 96 H (4-34) U/L Total Protein 6.0 L (6.3-8.2) g/dL 04/14/21 Range/Units 07:46 WBC 12.7 H (3.8-10.6) k/uL RDW 15.7 H (11.5-15.5) % Neutrophils # 11.3 H (1.3-7.7) k/uL Lymphocytes # 0.6 L (1.0-4.8) k/uL Sodium (137-145) mmol/L BUN (7-17) mg/dL Creatinine (0.52-1.04) mg/dL Glucose (74-99) mg/dL AST (14-36) U/L ALT (4-34) U/L Total Protein (6.3-8.2) g/dL Assessment and Plan Assessment: 1. Cardiac arrest secondary to arrhythmia. Defibrillator fired with pulses returning. Cardiology services consulted. Patient currently maintained on amiodarone. Mexitil added 2. Hypokalemia likely secondary to initiation of Lasix. Replace per protocol repeat potassium 3.8 3. Recent hospitalization for acute systolic congestive heart failure. Patient was started on Lasix as has been adjusted to Aldactone per cardiology services to prevent hypokalemia 4. Underlying history of ventricular tachycardia. AICD placement in February 2021 5. Mildly elevated troponin level. Cardiology services have been consulted 6. Underlying history of coronary artery disease with recent angioplasty and stent placement. Patient maintained on Brilinta 7. History of stroke 8. History of essential hypertension 9. History of hyperlipidemia 10. History of colon cancer Cardiology services following. Medications adjusted Repeat labs ordered
[2021-04-14 11:25] VITALS: BMI 25.3
--- NOTE | 2021-04-14 12:32 | P.PN ---
Subjective Progress Note Date: 04/14/21 HISTORY OF PRESENT ILLNESS: This is a pleasant 75-year-old female past medical history significant for coronary artery disease status post PCI proximal LAD and mid LAD 11/2020, isch emic cardiomyopathy status post AICD placement in 02/2021, dyslipidemia, hypertension, CVA. She follows in the office with Dr. Nice. We have been asked to see in consultation for cardiac arrest near-syncope. Patient is seen and examined in the emergency department no acute distress. Patient presents to the emergency department with complaint lightheadedness and presyncope. She also was admitted with hypokalemia. Yesterday patient was taken to x-ray and she went unresponsive, she had agonal breathing, she had no pulse. CPR was begun at that time. Her ICD went off and her pulses returned. Patient does not remember this event. Patient was started on amiodarone drip. Reviewing her device check- She did have an Episode of VF/VT and received an ICD shock. Patient seen and examined at bedside, no acute distress. She does state chest pain, shortness of breath, lightheadedness dizziness at this time. She denies any diarrhea, nausea or vomiting. She was admitted in 02/2021 due to diarrhea was also discharged on LifeVest. She had recurrent ventricular tachycardia requiring shocks and subsequently received an ICD. On the following day patient had symptoms of CVA with the middle cerebral artery occlusion which is clearly embolic, received TPA and was transported [facility]. She started anticoagulation Eliquis and Brilinta. While she was inpatient at [facility] there is no documentations of atrial fibrillation during her hospital stay and her echocardiogram showed a severely impaired systolic function no evidence of apical thrombus. DIAGNOSTICS EKG reveals sinus rhythm, heart rate 69, left axis deviation, right bundle branch block with T wave inversions in precordial leads. Chest xray no acute cardiopulmonary process. ICD interrogation reveals epidsode of VF/VT with received ICD shock. She also has had frequent runs of nonsustained ventricular tachycardia and nonsustained ventricular fibrillation, mostly yesterday April 12. Laboratory reviewed, on admission sodium 1:30, potassium 2.7, BUN 29, serum creatinine 2.1, magnesium 1.8, troponin 0.04, 0.05. Current home cardiac medications includeamiodarone 200 mg twice daily, Eliquis 5 mg twice a day, metoprolol succinate 25 mg daily, pravastatin 80 mg daily, Brilinta 90 mg twice daily, lisinopril 2.5 mg daily Most recent echocardiogram 02/27/2021 revealed an EF 25-30%, mild MR 04/14/2021 Patient examined this morning at the bedside. She reports her chest feels sore this morning. She denies chest pain or pressure. She reports feeling a little unsteady on her feet when ambulating. No further episodes of VT/VF. PHYSICAL EXAM: VITAL SIGNS: Reviewed. GENERAL: Well-developed in no acute distress. NECK: Supple. No JVD or thyromegaly LUNGS: Respirations even and unlabored. Lungs essentially clear to auscultation bilaterally. HEART: Regular rate and rhythm. S1 and S2 heard. Systolic murmur. EXTREMITIES: Normal range of motion. No clubbing or cyanosis. Peripheral pulses intact. No lower extremity edema ASSESSMENT: Dizziness, Lightheadedness Syncope Episode of Vfib/Vtach with ICD shock Hypokalemia Episodes of nonsustained fast VT and nonsustained ventricular fibrillation Sinus bradycardia, right bundle branch block pattern Ischemic cardiomyopathy Congestive systolic heart failure Acute on chronic kidney disease PLAN: Continue current cardiac medications including amiodarone 400 mg twice a day, Eliquis 5 mg twice a day, carvedilol 6.25 mg twice a day, mexiletine 150 mg every 12 hours, Pravachol 80 mg daily, Aldactone 25 mg daily, and Brilinta 90 mg twice a day Continue telemetry monitoring Further recommendations pending patient course Nurse practitioner note has been reviewed by physician. Signing provider agrees with the documented findings, assessment, and plan of care. Objective - Vital Signs Vital signs: Vital Signs Temp 97.9 F 04/14/21 08:00 Pulse 59 L 04/14/21 11:50 Resp 16 04/14/21 11:50 BP 128/58 04/14/21 11:50 Pulse Ox 97 04/14/21 11:50 Intake & Output 04/13/21 04/14/21 04/14/21 18:59 06:59 18:59 Intake Total 660 480 118 Output Total 300 Balance 360 480 118 Weight 58.287 kg 58.8 kg 58.8 kg Intake: Oral 660 480 118 Output: Urine 300 Other: Voiding Method Toilet Toilet # Voids 1 - Labs CBC & Chem 7: 04/14/21 07:46 04/14/21 07:46 Labs: Abnormal Lab Results - Last 24 Hours (Table) 04/14/21 04/14/21 Range/Units 07:46 07:46 WBC 12.7 H (3.8-10.6) k/uL RDW 15.7 H (11.5-15.5) % Neutrophils # 11.3 H (1.3-7.7) k/uL Lymphocytes # 0.6 L (1.0-4.8) k/uL Sodium 136 L (137-145) mmol/L BUN 20 H (7-17) mg/dL Creatinine 1.15 H (0.52-1.04) mg/dL Glucose 119 H (74-99) mg/dL AST 86 H (14-36) U/L ALT 96 H (4-34) U/L
[2021-04-14] MEDS: ACETAMINOPHEN TAB 325 MG TAB PO PRN (14:16)
[2021-04-14] MEDS: LATANOPROST 0.005% OPHTH DROPS 2.5 ML BTL LEFT EYE SCH (20:05)
[2021-04-14] MEDS: PRAVASTATIN SODIUM 80 MG TAB PO SCH (20:06)
[2021-04-15] MEDS: PANTOPRAZOLE 40 MG TABLET PO SCH (06:15)
[2021-04-15] MEDS: carvediloL 6.25 MG TAB PO SCH ×2 (06:15→17:01)
[2021-04-15 07:42] LABS: Basophils # (A) 0.1 k/uL (0-0.2); Basophils % (A) 0 %; Eosinophils # (A) 0.3 k/uL (0-0.7); Eosinophils % (A) 2 %; HCT 34.1 % (34.0-46.0); HGB 11.5 gm/dL (11.4-16.0); Lymphocytes # (A) 0.6 k/uL (1.0-4.8); Lymphocytes % (A) 4 %; MCH 29.8 pg (25.0-35.0); MCHC 33.6 g/dL (31.0-37.0); MCV 88.7 fL (80.0-100.0); Mean Platelet Volume 8.4; Monocytes # (A) 0.5 k/uL (0-1.0); Monocytes % (A) 3 %; Neutrophils # (A) 12.8 k/uL (1.3-7.7); Neutrophils % (A) 90 %; Platelet Count 289 k/uL (150-450); RBC 3.85 m/uL (3.80-5.40); RDW 15.5 % (11.5-15.5); WBC 14.3 k/uL (3.8-10.6)
[2021-04-15 08:05] LABS: Albumin 3.7 g/dL (3.5-5.0); Calcium 9.6 mg/dL (8.4-10.2); Total Bilirubin 0.6 mg/dL (0.2-1.3); Total Protein 6.3 g/dL (6.3-8.2)
[2021-04-15] MEDS: NON FORMULARY DRUG (Loteprednol Etabonate [Inveltys] 2.8 ML Drops.Susp) RIGHT EYE SCH (09:57)
[2021-04-15] MEDS ORDERED: Potassium Replacement Protocol 1 EACH MISC MISCELLANE PRN (10:01)
[2021-04-15] MEDS: APIXABAN 5 MG TAB PO SCH ×2 (10:11→20:27)
[2021-04-15] MEDS: SPIRONOLACTONE 25 MG TAB PO SCH (10:11)
[2021-04-15] MEDS: AMIODARONE 200 MG TAB PO SCH ×2 (10:11→20:26)
[2021-04-15] MEDS: MEXILETINE 150 MG CAP PO SCH ×2 (10:11→20:26)
[2021-04-15] MEDS: TICAGRELOR 90 MG TAB PO SCH ×2 (10:11→20:27)
[2021-04-15] MEDS: POTASSIUM CHLORIDE ER 20 MEQ TAB.ER PO SCH ×2 (10:11→13:06)
[2021-04-15] MEDS: TIMOLOL 0.5% OPHTH DROPS 5 ML BTL LEFT EYE SCH ×2 (10:12→20:27)
[2021-04-15] MEDS: BRIMONIDINE TARTRATE 0.2% DROPS 5 ML BTL LEFT EYE SCH ×2 (10:12→20:27)
--- NOTE | 2021-04-15 10:13 | P.PN ---
Subjective Progress Note Date: 04/15/21 HISTORY OF PRESENT ILLNESS: This is a pleasant 75-year-old female past medical history significant for coronary artery disease status post PCI proximal LAD and mid LAD 11/2020, isch emic cardiomyopathy status post AICD placement in 02/2021, dyslipidemia, hypertension, CVA. She follows in the office with Dr. Nice. We have been asked to see in consultation for cardiac arrest near-syncope. Patient is seen and examined in the emergency department no acute distress. Patient presents to the emergency department with complaint lightheadedness and presyncope. She also was admitted with hypokalemia. Yesterday patient was taken to x-ray and she went unresponsive, she had agonal breathing, she had no pulse. CPR was begun at that time. Her ICD went off and her pulses returned. Patient does not remember this event. Patient was started on amiodarone drip. Reviewing her device check- She did have an Episode of VF/VT and received an ICD shock. Patient seen and examined at bedside, no acute distress. She does state chest pain, shortness of breath, lightheadedness dizziness at this time. She denies any diarrhea, nausea or vomiting. She was admitted in 02/2021 due to diarrhea was also discharged on LifeVest. She had recurrent ventricular tachycardia requiring shocks and subsequently received an ICD. On the following day patient had symptoms of CVA with the middle cerebral artery occlusion which is clearly embolic, received TPA and was transported [facility]. She started anticoagulation Eliquis and Brilinta. While she was inpatient at [facility] there is no documentations of atrial fibrillation during her hospital stay and her echocardiogram showed a severely impaired systolic function no evidence of apical thrombus. DIAGNOSTICS EKG reveals sinus rhythm, heart rate 69, left axis deviation, right bundle branch block with T wave inversions in precordial leads. Chest xray no acute cardiopulmonary process. ICD interrogation reveals epidsode of VF/VT with received ICD shock. She also has had frequent runs of nonsustained ventricular tachycardia and nonsustained ventricular fibrillation, mostly yesterday April 12. Laboratory reviewed, on admission sodium 1:30, potassium 2.7, BUN 29, serum creatinine 2.1, magnesium 1.8, troponin 0.04, 0.05. Current home cardiac medications includeamiodarone 200 mg twice daily, Eliquis 5 mg twice a day, metoprolol succinate 25 mg daily, pravastatin 80 mg daily, Brilinta 90 mg twice daily, lisinopril 2.5 mg daily Most recent echocardiogram 02/27/2021 revealed an EF 25-30%, mild MR 04/14/2021 Patient examined this morning at the bedside. She reports her chest feels sore this morning. She denies chest pain or pressure. She reports feeling a little unsteady on her feet when ambulating. No further episodes of VT/VF. 04/15/2021 Patient examined this morning at the bedside. Patient denies chest pain or pressure. She denies shortness of breath. She states she is not as unsteady on her feet as she was yesterday. No further epiodes of VT/VF. Heart rate is in the 50s. Blood pressure 149/64. PHYSICAL EXAM: VITAL SIGNS: Reviewed. GENERAL: Well-developed in no acute distress. NECK: Supple. No JVD or thyromegaly LUNGS: Respirations even and unlabored. Lungs essentially clear to auscultation bilaterally. HEART: Regular rate and rhythm. S1 and S2 heard. Systolic murmur. EXTREMITIES: Normal range of motion. No clubbing or cyanosis. Peripheral pulses intact. No lower extremity edema ASSESSMENT: Dizziness, Lightheadedness Syncope Episode of Vfib/Vtach with ICD shock Hypokalemia Episodes of nonsustained fast VT and nonsustained ventricular fibrillation Sinus bradycardia, right bundle branch block pattern Ischemic cardiomyopathy Congestive systolic heart failure Acute on chronic kidney disease PLAN: Continue current cardiac medications including amiodarone 400 mg twice a day, Eliquis 5 mg twice a day, carvedilol 6.25 mg twice a day, mexiletine 150 mg every 12 hours, Pravachol 80 mg daily, Aldactone 25 mg daily, and Brilinta 90 mg twice a day Continue telemetry monitoring Further recommendations pending patient course Nurse practitioner note has been reviewed by physician. Signing provider agrees with the documented findings, assessment, and plan of care. Objective - Vital Signs Vital signs: Vital Signs Temp 98.0 F 04/15/21 09:55 Pulse 55 L 04/15/21 09:55 Resp 16 04/15/21 09:55 BP 149/64 04/15/21 09:55 Pulse Ox 98 04/15/21 09:55 Intake & Output 04/14/21 04/15/21 04/15/21 18:59 06:59 18:59 Intake Total 354 480 120 Balance 354 480 120 Weight 58.8 kg 59.1 kg Intake: Oral 354 480 120 Other: Voiding Method Toilet Toilet # Voids 2 1 1 # Bowel Movements 1 - Labs CBC & Chem 7: 04/15/21 07:28 04/15/21 07:28 Labs: Abnormal Lab Results - Last 24 Hours (Table) 04/15/21 04/15/21 Range/Units 07:28 07:28 WBC 14.3 H (3.8-10.6) k/uL Neutrophils # 12.8 H (1.3-7.7) k/uL Lymphocytes # 0.6 L (1.0-4.8) k/uL Potassium 3.0 L (3.5-5.1) mmol/L Creatinine 1.18 H (0.52-1.04) mg/dL Glucose 127 H (74-99) mg/dL AST 46 H (14-36) U/L ALT 66 H (4-34) U/L
--- NOTE | 2021-04-15 12:52 | ECHOF ---
Referral Reason:cardiac arrest MEASUREMENTS -------- HEIGHT: 154.9 cm WEIGHT: 58.1 kg BP: IVSd: 1.2 cm (0.6 - 1.1) LVIDd: 5.1 cm (3.9 - 5.3) LVPWd: 1.2 cm (0.6 - 1.1) IVSs: 1.5 cm LVIDs: 4.3 cm LVPWs: 1.1 cm FINDINGS -------- Limited Study The left ventricular size is normal. There is mild concentric left ventricular hypertrophy. Overa ll left ventricular systolic function is severely impaired with, an EF between 25 - 30 %. Basal Seg ment Lv only. Lumason used There is no pericardial effusion. CONCLUSIONS -------- 1. Limited Study 2. The left ventricular size is normal. 3. There is mild concentric left ventricular hypertrophy. 4. Overall left ventricular systolic function is severely impaired with, an EF between 25 - 30 %. 5. Basal Segment Lv only. 6. There is no pericardial effusion. CHILI MAKER: Margareth Flores [facility]
--- NOTE | 2021-04-15 13:10 | XR ---
EXAMINATION TYPE: XR chest 2V DATE OF EXAM: 04/15/2021 COMPARISON: 04/12/2021 INDICATION: Leukocytosis TECHNIQUE: Frontal and lateral views of the chest are obtained. FINDINGS: The heart size is normal. The pulmonary vasculature is normal. The lungs are clear. Pacemaker overlies left chest. Port is present on the right with the tip in the right atrium. IMPRESSION: 1. No acute pulmonary process.
--- NOTE | 2021-04-15 13:55 | P.PN ---
Subjective Progress Note Date: 04/15/21 This is a 75-year-old female patient of Dr. Cifuentes who initially presented to the ER with complaints of feeling lightheaded and feeling like she was going to pass out. Patient did report that she throughout once in route to ER. Upon arrival to the ER patient was sent to x-ray where she became unresponsive and pulseless. CPR was initiated and patient evaluated went off and pulses did return. Patient has past medical history of coronary artery disease with multiple stents, AICD and pacemaker placement and patient was recently hospitalized for CHF in which she was started on Lasix. Upon arrival patient was found to have a low potassium of 2.7. Creatinine also elevated 2.13 and bun 29. Troponins also mildly elevated 0.048 and 0.059. Patient was started on IV amiodarone and cardiology services have been consulted. Dr. Flores also consulted for AICD and pacemaker check. Patient is currently resting comfortably in bed heart rate remains in the 40s. Patient currently on IV amiodarone. Currently on room air sating 100%. Chest x-ray was performed showing no acute pulmonary process. Patient denies any recent illness. Patient denies nausea vomiting or diarrhea at home. Patient denies any urinary burning or frequency On 04/14/2021 patient is alert and oriented 3. Patient reports she had an uneventful night was able to get some sleep. Medications were adjusted yesterday to Core, Mexiti,l and Aldactone. Heart rate remains in the 40s and 50s. Dr. Flores following for AICD and pacemaker. Pulmoary. services also consulted. We'll continue to monitor patient and replace electrolytes as needed. At this time patient denies chest pain or shortness of breath. Patient denies nausea vomiting or diarrhea. Patient denies any urinary burning or frequency On 04/15/2021 Patient was seen and examined on the medical floor, she is alert and oriented x 3 in no distress, she denies any complaints there is no fever or chills no headache or dizziness no chest pain no shortness of breath no palpitation no cough no nausea or vomiting no abdominal pain no diarrhea no blood in the stools no burning with urination no frequency or urgency and no hematuria, there is no weakness or numbness in any of the extremities no change in vision speech or gait. White blood count continues to be elevated will check urine analysis and chest x-ray will continue to monitor closely Objective - Vital Signs Vital signs: Vital Signs Temp 98.3 F 04/14/21 20:00 Pulse 53 L 04/15/21 04:00 Resp 18 04/15/21 04:00 BP 147/74 04/15/21 04:00 Pulse Ox 97 04/15/21 04:00 Intake & Output 04/14/21 04/15/21 04/15/21 18:59 06:59 18:59 Intake Total 354 480 Balance 354 480 Weight 58.8 kg 59.1 kg Intake: Oral 354 480 Other: Voiding Method Toilet Toilet # Voids 2 1 - Exam Head normocephalic Neck supple Lungs clear to auscultation bilaterally no wheezing or crackles Heart regular rate and rhythm S1-S2, no rub or gallop Abdomen is soft nontender nondistended positive bowel sounds no hepatosplenomegaly Extremities no edema Neuro alert and orientated to 3 - Labs CBC & Chem 7: 04/15/21 07:28 04/15/21 07:28 Labs: Abnormal Lab Results - Last 24 Hours (Table) 04/14/21 04/14/21 04/15/21 Range/Units 07:46 07:46 07:28 WBC 12.7 H 14.3 H (3.8-10.6) k/uL RDW 15.7 H (11.5-15.5) % Neutrophils # 11.3 H 12.8 H (1.3-7.7) k/uL Lymphocytes # 0.6 L 0.6 L (1.0-4.8) k/uL Sodium 136 L (137-145) mmol/L Potassium (3.5-5.1) mmol/L BUN 20 H (7-17) mg/dL Creatinine 1.15 H (0.52-1.04) mg/dL Glucose 119 H (74-99) mg/dL AST 86 H (14-36) U/L ALT 96 H (4-34) U/L 04/15/21 Range/Units 07:28 WBC (3.8-10.6) k/uL RDW (11.5-15.5) % Neutrophils # (1.3-7.7) k/uL Lymphocytes # (1.0-4.8) k/uL Sodium (137-145) mmol/L Potassium 3.0 L (3.5-5.1) mmol/L BUN (7-17) mg/dL Creatinine 1.18 H (0.52-1.04) mg/dL Glucose 127 H (74-99) mg/dL AST 46 H (14-36) U/L ALT 66 H (4-34) U/L Assessment and Plan Assessment: 1. Cardiac arrest secondary to arrhythmia. Defibrillator fired with pulses returning. Cardiology services consulted. Patient currently maintained on amiodarone. Mexitil added 2. Hypokalemia likely secondary to initiation of Lasix. Replace per protocol repeat potassium 3.8 3. Recent hospitalization for acute systolic congestive heart failure. Patient was started on Lasix as has been adjusted to Aldactone per cardiology services to prevent hypokalemia 4. Underlying history of ventricular tachycardia. AICD placement in February 2021 5. Mildly elevated troponin level. Cardiology services have been consulted 6. Underlying history of coronary artery disease with recent angioplasty and stent placement. Patient maintained on Brilinta 7. History of stroke 8. History of essential hypertension 9. History of hyperlipidemia 10. History of colon cancer 11. Leukocytosis will check urine analysis and chest x-ray Cardiology services following. Medications adjusted Repeat labs ordered
[2021-04-15] MEDS: ACETAMINOPHEN TAB 325 MG TAB PO PRN ×2 (15:44→22:10)
[2021-04-15 15:55] LABS: Appearance,Urine Cloudy (Clear); Bacteria,Urine Moderate /hpf; Bilirubin,Urine Negative (Negative); Blood,Urine Negative (Negative); Color,Urine Yellow; Glucose,Urine (UA) Negative (Negative); Ketones,Urine Negative (Negative); Leukocyte Esterase,Urine Large (Negative); Mucus,Urine Rare /hpf; Nitrite,Urine Positive (Negative); Protein,Urine Trace (Negative); RBC,Urine 2 /hpf (0-5); Specific Gravity,Urine 1.009 (1.001-1.035); Squamous Epithelial Cell,Urine 3 /hpf (0-4); Urobilinogen,Urine <2.0 mg/dL (<2.0); WBC,Urine 60 /hpf (0-5)
[2021-04-15] MEDS: LATANOPROST 0.005% OPHTH DROPS 2.5 ML BTL LEFT EYE SCH (20:27)
[2021-04-15] MEDS: PRAVASTATIN SODIUM 80 MG TAB PO SCH (20:49)
[2021-04-16] MEDS: carvediloL 6.25 MG TAB PO SCH (06:39)
[2021-04-16] MEDS: PANTOPRAZOLE 40 MG TABLET PO SCH (06:39)
[2021-04-16 07:31] LABS: Basophils % (A) 0 %; Eosinophils # (A) 0.2 k/uL (0-0.7); Eosinophils % (A) 1 %; HGB 10.8 gm/dL (11.4-16.0); Lymphocytes # (A) 0.4 k/uL (1.0-4.8); Lymphocytes % (A) 3 %; MCH 29.6 pg (25.0-35.0); MCHC 33.7 g/dL (31.0-37.0); Mean Platelet Volume 8.5; Monocytes # (A) 0.4 k/uL (0-1.0); Monocytes % (A) 3 %; Neutrophils # (A) 12.9 k/uL (1.3-7.7); Neutrophils % (A) 93 %; Platelet Count 225 k/uL (150-450); RBC 3.63 m/uL (3.80-5.40); RDW 15.6 % (11.5-15.5); WBC 13.9 k/uL (3.8-10.6)
[2021-04-16 07:46] LABS: Albumin 3.2 g/dL (3.5-5.0); Calcium 9.3 mg/dL (8.4-10.2); Potassium 3.2 mmol/L (3.5-5.1); Total Bilirubin 0.6 mg/dL (0.2-1.3); Total Protein 5.7 g/dL (6.3-8.2)
[2021-04-16] MEDS: MEXILETINE 150 MG CAP PO SCH ×2 (08:41→19:55)
[2021-04-16] MEDS: AMIODARONE 200 MG TAB PO SCH ×2 (08:41→19:55)
[2021-04-16] MEDS: TICAGRELOR 90 MG TAB PO SCH ×2 (08:41→19:55)
[2021-04-16] MEDS: SPIRONOLACTONE 25 MG TAB PO SCH (08:41)
[2021-04-16] MEDS: APIXABAN 5 MG TAB PO SCH ×2 (08:42→19:55)
[2021-04-16] MEDS: POTASSIUM CHLORIDE ER 20 MEQ TAB.ER PO SCH ×2 (08:42→09:00)
[2021-04-16] MEDS: NON FORMULARY DRUG (Loteprednol Etabonate [Inveltys] 2.8 ML Drops.Susp) RIGHT EYE SCH (08:43)
[2021-04-16] MEDS: TIMOLOL 0.5% OPHTH DROPS 5 ML BTL LEFT EYE SCH ×2 (08:43→19:56)
[2021-04-16] MEDS: BRIMONIDINE TARTRATE 0.2% DROPS 5 ML BTL LEFT EYE SCH ×2 (08:43→19:55)
--- NOTE | 2021-04-16 11:04 | P.PN ---
Subjective This is a pleasant 75-year-old female past medical history significant for coronary artery disease status post PCI proximal LAD and mid LAD 11/2020, ischemic cardiomyopathy status post AICD placement in 02/2021, dyslipidemia, hypertension, CVA. She follows in the office with Dr. Nice. We have been asked to see in consultation for cardiac arrest near-syncope. Patient presents to the emergency department with complaint lightheadedness and presyncope. She also was admitted with hypokalemia. On 04/13 Patient was taken to x-ray and she went unresponsive, she had agonal breathing, she had no pulse. CPR was begun at that time. Her ICD went off and her pulses returned. Patient was started on amiodarone drip. Patient was transition to PO amiodarone, Mexiletine, Coreg spironolactone were added, Lasix was held. ICD interrogation reveals epidsode of VF/VT with received ICD shock. She also has had frequent runs of nonsustained ventricular tachycardia and nonsustained ventricular fibrillation, mostly yesterday April 12. 04/16/21 Patient seen and examined at bedside, no acute distress. Denies chest pain or shortness of breath. She does endorse nausea and an episode of emesis this morning. She does feel lightheaded when standing and walking to the bathroom and bending over. Limited Echocardiogram 04/13/21 revealed an EF 25-30% basal segm ents temo only. Previous Echocardiogram 02/27/21 revealed an EF 25-30%, mild MR. Laboratory data reviewed, reviewed WBC 13.9, hemoglobin 10.8, platelets 225, sodium 137, potassium 3.1, BUN 15, serum creatinine 1.06. Telemetry reviewed- patient in sinus mechanism HR 55-60s. PHYSICAL EXAMINATION Blood pressure 155/71 heart rate 67 afebrile and maintaining oxygen saturation on room air CONSTITUTIONAL: No apparent distress. HEENT: Head is normocephalic. No JVD. No carotid bruit. CHEST EXAMINATION: Lungs are clear to auscultation. Her chest is sore HEART EXAMINATION: Regular rate and rhythm. S1, S2 heard. Systolic murmur at apex ABDOMEN: Soft, nontender. Positive bowel sounds. EXTREMITIES: 2+ peripheral pulses, no lower extremity edema and no calf tenderness. NEUROLOGIC EXAMINATION: Patient is awake, alert and oriented x3. 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 Patient states she is possibly able to afford, will we re-address with patient. Increase Carvedilol 12.5mg BID Increase spironolactone 50mg daily Amiodarone 400mg BID (started 04/13/21) Continue Eliquis, Brilinta Continue Mexiletine 150mg BID Monitor renal function and electrolytes Continue cardiac telemetry Further recommendations based on clinical course Nurse Practitioner note has been reviewed, I agree with a documented findings and plan of care. Patient was seen and examined. Objective - Vital Signs Vital signs: Vital Signs Temp 97.8 F 04/16/21 08:00 Pulse 61 04/16/21 09:29 Resp 16 04/16/21 08:00 BP 160/57 04/16/21 09:29 Pulse Ox 98 04/16/21 08:00 Intake & Output 04/15/21 04/16/21 04/16/21 18:59 06:59 18:59 Intake Total 200 480 0 Output Total 0 Balance 200 480 0 Weight 59.1 kg Intake: Oral 200 480 0 Output: Urine 0 Stool 0 Other: Voiding Method Toilet Toilet Toilet # Voids 2 1 0 # Bowel Movements 1 0 - Labs CBC & Chem 7: 04/16/21 07:03 04/16/21 07:03 Labs: Abnormal Lab Results - Last 24 Hours (Table) 04/15/21 04/16/21 04/16/21 Range/Units 15:41 07:03 07:03 WBC 13.9 H (3.8-10.6) k/uL RBC 3.63 L (3.80-5.40) m/uL Hgb 10.8 L (11.4-16.0) gm/dL Hct 32.0 L (34.0-46.0) % RDW 15.6 H (11.5-15.5) % Neutrophils # 12.9 H (1.3-7.7) k/uL Lymphocytes # 0.4 L (1.0-4.8) k/uL Potassium 3.2 L (3.5-5.1) mmol/L Creatinine 1.06 H (0.52-1.04) mg/dL Glucose 111 H (74-99) mg/dL ALT 47 H (4-34) U/L Total Protein 5.7 L (6.3-8.2) g/dL Albumin 3.2 L (3.5-5.0) g/dL Urine Appearance Cloudy H (Clear) Urine Protein Trace H (Negative) Urine Nitrite Positive H (Negative) Ur Leukocyte Esterase Large H (Negative) Urine WBC 60 H (0-5) /hpf Urine Bacteria Moderate H (None) /hpf Urine Mucus Rare H (None) /hpf
[2021-04-16] MEDS: SACUBITRIL/VALSARTAN 24 MG-26 MG TABLET PO SCH ×2 (11:18→19:55)
[2021-04-16] MEDS: ACETAMINOPHEN TAB 325 MG TAB PO PRN ×2 (14:18→20:49)
--- NOTE | 2021-04-16 15:51 | CDI ---
Documentation Clarification Form Date: 04/16/2021 03:43:14 PM From: Stephie Agustin CCS, CCDS Admit Date: 04/12/2021 04:28:00 PM Patient Name: Valerie Contreras Visit Number: [id number] Discharge Date: ATTENTION: The Clinical Documentation Specialists (CDI) and [facility] Coding Staff appreciate your assistance in clarifying documentation. Please respond to the clarification below the line at the bottom and electronically sign. The CDI & [facility] Coding staff will review the response and follow-up if needed. Please note: Queries are made part of the Legal Health Record. If you have any questions, please contact the author of this message via ITS. Dr. Clary Nice: Unspecified CKD is documented in the 04/13 AICD Device Interrogation Study Note and the 04/14 & 04/15 Cardiology Progress Note without further clarification. Additional clarification regarding the stage of CKD is requested. History/Risk Factors per the 04/13 H/P: CAD with stents, Chronic Systolic CHF, Paroxysmal Atrial Fibrillation, Ventricular tachycardia with AICD in place, Colon Cancer, CVA, Hypertension, Hyperlipidemia. Clinical Indicators: Presented to the ED on 04/12 with Dizziness via EMS. ED Clinical Impression: Cardiac Arrest, Hypokalemia, Near Syncope, Renal Insufficiency, Elevated Troponin. 04/12 LAB: BUN: 29, Creatinine 2.13. GFR: 04/12: 22, 04/13: 39, 04/14: 46, 04/15: 45 Historical GFR: 07/01/2016: >60 Treatment: IV fl Na Cl 500 mls @ 999 mls/hr q31M, IV Dextrose/Water w/Amiodarone 256 mls @ 256 mls/hr q1Hr, IV Kcl, IV Reglan, IV KCL Nephrology is not consulted. Please clarify the stage of the CKD, if known: [ ] CKD Stage 2 (GFR 60-89) [ ] CKD Stage 3 (GFR 30-59) [ ] CKD Stage 3a (GFR 45-59) [ ] CKD Stage 3b (GFR 30-44) [ ] CKD Stage 4 (GFR 15-29) [ xxx] Other, please specify AKI , improved [ ] Unable to determine (Template Last revised: October 2020) MTDD
--- NOTE | 2021-04-16 17:20 | P.PN ---
Subjective Progress Note Date: 04/16/21 This is a 75-year-old female patient of Dr. Cifuentes who initially presented to the ER with complaints of feeling lightheaded and feeling like she was going to pass out. Patient did report that she throughout once in route to ER. Upon arrival to the ER patient was sent to x-ray where she became unresponsive and pulseless. CPR was initiated and patient evaluated went off and pulses did return. Patient has past medical history of coronary artery disease with multiple stents, AICD and pacemaker placement and patient was recently hospitalized for CHF in which she was started on Lasix. Upon arrival patient was found to have a low potassium of 2.7. Creatinine also elevated 2.13 and bun 29. Troponins also mildly elevated 0.048 and 0.059. Patient was started on IV amiodarone and cardiology services have been consulted. Dr. Flores also consulted for AICD and pacemaker check. Patient is currently resting comfortably in bed heart rate remains in the 40s. Patient currently on IV amiodarone. Currently on room air sating 100%. Chest x-ray was performed showing no acute pulmonary process. Patient denies any recent illness. Patient denies nausea vomiting or diarrhea at home. Patient denies any urinary burning or frequency On 04/14/2021 patient is alert and oriented 3. Patient reports she had an uneventful night was able to get some sleep. Medications were adjusted yesterday to Core, Mexiti,l and Aldactone. Heart rate remains in the 40s and 50s. Dr. Flores following for AICD and pacemaker. Pulmoary. services also consulted. We'll continue to monitor patient and replace electrolytes as needed. At this time patient denies chest pain or shortness of breath. Patient denies nausea vomiting or diarrhea. Patient denies any urinary burning or frequency On 04/15/2021 Patient was seen and examined on the medical floor, she is alert and oriented x 3 in no distress, she denies any complaints there is no fever or chills no headache or dizziness no chest pain no shortness of breath no palpitation no cough no nausea or vomiting no abdominal pain no diarrhea no blood in the stools no burning with urination no frequency or urgency and no hematuria, there is no weakness or numbness in any of the extremities no change in vision speech or gait. White blood count continues to be elevated will check urine analysis and chest x-ray will continue to monitor closely On 04/16/2021 Patient is alert and oriented x 3 in no distress, she denies any complaints there is no fever or chills no headache or dizziness no chest pain no shortness of breath no palpitation no cough no nausea or vomiting no abdominal pain no diarrhea no blood in the stools no burning with urination no frequency or urgency and no hematuria, there is no weakness or numbness in any of the extremities no change in vision speech or gait. patient has evidence of UTI, she was started on IV Rocephin. Urine culture requested. Cardiology started Entresto, will continue to monitor. Objective - Vital Signs Vital signs: Vital Signs Temp 97.8 F 04/16/21 10:01 Pulse 67 04/16/21 10:01 Resp 16 04/16/21 10:01 BP 155/71 04/16/21 10:01 Pulse Ox 98 04/16/21 10:01 Intake & Output 04/15/21 04/16/21 04/16/21 18:59 06:59 18:59 Intake Total 200 480 0 Output Total 0 Balance 200 480 0 Weight 59.1 kg Intake: Oral 200 480 0 Output: Urine 0 Stool 0 Other: Voiding Method Toilet Toilet Toilet # Voids 2 1 0 # Bowel Movements 1 0 - Exam Head normocephalic Neck supple Lungs clear to auscultation bilaterally no wheezing or crackles Heart regular rate and rhythm S1-S2, no rub or gallop Abdomen is soft nontender nondistended positive bowel sounds no hepatosplenomegaly Extremities no edema Neuro alert and orientated to 3 - Labs CBC & Chem 7: 04/16/21 07:03 04/16/21 07:03 Labs: Abnormal Lab Results - Last 24 Hours (Table) 04/15/21 04/16/21 04/16/21 Range/Units 15:41 07:03 07:03 WBC 13.9 H (3.8-10.6) k/uL RBC 3.63 L (3.80-5.40) m/uL Hgb 10.8 L (11.4-16.0) gm/dL Hct 32.0 L (34.0-46.0) % RDW 15.6 H (11.5-15.5) % Neutrophils # 12.9 H (1.3-7.7) k/uL Lymphocytes # 0.4 L (1.0-4.8) k/uL Potassium 3.2 L (3.5-5.1) mmol/L Creatinine 1.06 H (0.52-1.04) mg/dL Glucose 111 H (74-99) mg/dL Magnesium (1.6-2.3) mg/dL ALT 47 H (4-34) U/L Total Protein 5.7 L (6.3-8.2) g/dL Albumin 3.2 L (3.5-5.0) g/dL Urine Appearance Cloudy H (Clear) Urine Protein Trace H (Negative) Urine Nitrite Positive H (Negative) Ur Leukocyte Esterase Large H (Negative) Urine WBC 60 H (0-5) /hpf Urine Bacteria Moderate H (None) /hpf Urine Mucus Rare H (None) /hpf 04/16/21 Range/Units 07:03 WBC (3.8-10.6) k/uL RBC (3.80-5.40) m/uL Hgb (11.4-16.0) gm/dL Hct (34.0-46.0) % RDW (11.5-15.5) % Neutrophils # (1.3-7.7) k/uL Lymphocytes # (1.0-4.8) k/uL Potassium (3.5-5.1) mmol/L Creatinine (0.52-1.04) mg/dL Glucose (74-99) mg/dL Magnesium 1.4 L (1.6-2.3) mg/dL ALT (4-34) U/L Total Protein (6.3-8.2) g/dL Albumin (3.5-5.0) g/dL Urine Appearance (Clear) Urine Protein (Negative) Urine Nitrite (Negative) Ur Leukocyte Esterase (Negative) Urine WBC (0-5) /hpf Urine Bacteria (None) /hpf Urine Mucus (None) /hpf Assessment and Plan Assessment: 1. Cardiac arrest secondary to arrhythmia. Defibrillator fired with pulses returning. Cardiology services consulted. Patient currently maintained on amiodarone. Mexitil added 2. Hypokalemia likely secondary to initiation of Lasix. Replace per protocol repeat potassium 3.8 3. Recent hospitalization for acute systolic congestive heart failure. Patient was started on Lasix as has been adjusted to Aldactone per cardiology services to prevent hypokalemia 4. Underlying history of ventricular tachycardia. AICD placement in February 2021 5. Mildly elevated troponin level. Cardiology services have been consulted 6. Underlying history of coronary artery disease with recent angioplasty and stent placement. Patient maintained on Brilinta 7. History of stroke 8. History of essential hypertension 9. History of hyperlipidemia 10. History of colon cancer 11. Leukocytosis will check urine analysis and chest x-ray Cardiology services following. Medications adjusted Repeat labs ordered
[2021-04-16] MEDS: carvediloL 12.5 MG TAB PO SCH (17:33)
[2021-04-16] MEDS: PRAVASTATIN SODIUM 80 MG TAB PO SCH (19:55)
[2021-04-16] MEDS: LATANOPROST 0.005% OPHTH DROPS 2.5 ML BTL LEFT EYE SCH (19:56)
[2021-04-17] MEDS: carvediloL 12.5 MG TAB PO SCH ×2 (06:08→17:05)
[2021-04-17] MEDS: PANTOPRAZOLE 40 MG TABLET PO SCH (06:08)
[2021-04-17 07:41] LABS: Basophils # (A) 0.1 k/uL (0-0.2); Basophils % (A) 0 %; Eosinophils # (A) 0.2 k/uL (0-0.7); Eosinophils % (A) 1 %; HCT 39.2 % (34.0-46.0); HGB 12.8 gm/dL (11.4-16.0); Lymphocytes # (A) 0.6 k/uL (1.0-4.8); Lymphocytes % (A) 5 %; MCH 30.1 pg (25.0-35.0); MCHC 32.8 g/dL (31.0-37.0); MCV 91.8 fL (80.0-100.0); Mean Platelet Volume 9.1; Monocytes # (A) 0.4 k/uL (0-1.0); Monocytes % (A) 3 %; Neutrophils # (A) 11.1 k/uL (1.3-7.7); Neutrophils % (A) 90 %; Platelet Count 330 k/uL (150-450); RBC 4.27 m/uL (3.80-5.40); RDW 15.5 % (11.5-15.5); WBC 12.3 k/uL (3.8-10.6)
[2021-04-17 08:07] LABS: Albumin 3.6 g/dL (3.5-5.0); Calcium 9.7 mg/dL (8.4-10.2); Potassium 3.5 mmol/L (3.5-5.1); Total Bilirubin 0.6 mg/dL (0.2-1.3); Total Protein 6.3 g/dL (6.3-8.2)
[2021-04-17] MEDS: MEXILETINE 150 MG CAP PO SCH (09:15)
[2021-04-17] MEDS: SPIRONOLACTONE 25 MG TAB PO SCH (09:15)
[2021-04-17] MEDS: AMIODARONE 200 MG TAB PO SCH ×2 (09:16→21:17)
[2021-04-17] MEDS: APIXABAN 5 MG TAB PO SCH ×2 (09:16→21:18)
[2021-04-17] MEDS: TICAGRELOR 90 MG TAB PO SCH ×2 (09:16→21:18)
[2021-04-17] MEDS: BRIMONIDINE TARTRATE 0.2% DROPS 5 ML BTL LEFT EYE SCH ×2 (09:18→21:14)
[2021-04-17] MEDS: NON FORMULARY DRUG (Loteprednol Etabonate [Inveltys] 2.8 ML Drops.Susp) RIGHT EYE SCH (09:18)
[2021-04-17] MEDS: TIMOLOL 0.5% OPHTH DROPS 5 ML BTL LEFT EYE SCH ×2 (09:19→21:14)
[2021-04-17] MEDS: SACUBITRIL/VALSARTAN 24 MG-26 MG TABLET PO SCH ×2 (09:19→21:19)
[2021-04-17] MEDS ORDERED: Magnesium Replacement Protocol 1 EACH MISC MISCELLANE PRN (10:47)
--- NOTE | 2021-04-17 11:19 | P.PN ---
Subjective This is a pleasant 75-year-old female past medical history significant for coronary artery disease status post PCI proximal LAD and mid LAD 11/2020, ischemic cardiomyopathy status post AICD placement in 02/2021, dyslipidemia, hypertension, CVA. She follows in the office with Dr. Nice. We have been asked to see in consultation for cardiac arrest near-syncope. Patient presents to the emergency department with complaint lightheadedness and presyncope. She also was admitted with hypokalemia. On 04/13 Patient was taken to x-ray and she went unresponsive, she had agonal breathing, she had no pulse. CPR was begun at that time. Her ICD went off and her pulses returned. Patient was started on amiodarone drip. Patient was transition to PO amiodarone, Mexiletine, Coreg spironolactone were added, Lasix was held. Limited Echocardiogram 04/13/21 r evealed an EF 25-30% basal segments temo only. ICD interrogation reveals epidsode of VF/VT with received ICD shock. She also has had frequent runs of nonsustained ventricular tachycardia and nonsustained ventricular fibrillation, mostly April 12. 04/17/21 Patient seen and examined at bedside, no acute distress. Denies chest pain or shortness of breath. She continues to have nausea and 2 episodes of emesis this morning, at 1:00am and 6:00am. She is havin bowel movements, that are soft, last BM 04/16 night. She states her lightheaded and dizziness has improved. She is maintaining sinus mechanism with right bundle branch block. Laboratory data reviewed, reviewed WBC 12.3, hemoglobin 12.8, platelets 30, sodium 136, potassium 3.5, BUN 12, serum creatinine 0.86, magnesium 1.4. She is currently maintained on mexiletine 150 mg twice a day, Crestor 25 mg26 mg twice a day, carvedilol 12.5 mg twice day, spironolactone 50 mg daily, amiodarone 400 mg twice a day, Eliquis 5 mg twice daily, Brilinta 90 mg BID. PHYSICAL EXAMINATION Blood pressure 111/57 heart rate 63 afebrile and maintaining oxygen saturation on room air CONSTITUTIONAL: No apparent distress. HEENT: Head is normocephalic. No JVD. No carotid bruit. CHEST EXAMINATION: Lungs are clear to auscultation. Her chest is sore HEART EXAMINATION: Regular rate and rhythm. S1, S2 heard. Systolic murmur at apex ABDOMEN: Soft, nontender. Positive bowel sounds. EXTREMITIES: 2+ peripheral pulses, no lower extremity edema and no calf tenderness. NEUROLOGIC EXAMINATION: Patient is awake, alert and oriented x3. 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 Patient states she is possibly able to afford. Continue Carvedilol 12.5mg BID, spironolactone 50mg daily, and Amiodarone 400mg BID (started 04/13/21) Continue Eliquis and Brilinta Monitor renal function and electrolytes Continue cardiac telemetry Further recommendations based on clinical course Nurse Practitioner note has been reviewed, I agree with a documented findings and plan of care. Patient was seen and examined. Objective - Vital Signs Vital signs: Vital Signs Temp 98 F 04/17/21 09:06 Pulse 63 04/17/21 09:06 Resp 16 04/17/21 09:06 BP 111/57 04/17/21 09:06 Pulse Ox 98 04/17/21 09:06 Intake & Output 04/16/21 04/17/21 04/17/21 18:59 06:59 18:59 Intake Total 240 480 Output Total 0 Balance 240 480 Weight 59 kg Intake: Oral 240 480 Output: Urine 0 Stool 0 Other: Voiding Method Toilet Toilet Toilet # Voids 1 1 1 # Bowel Movements 1 1 1 - Labs CBC & Chem 7: 04/17/21 06:44 04/17/21 06:44 Labs: Abnormal Lab Results - Last 24 Hours (Table) 04/17/21 04/17/21 04/17/21 Range/Units 06:44 06:44 06:44 WBC 12.3 H (3.8-10.6) k/uL Neutrophils # 11.1 H (1.3-7.7) k/uL Lymphocytes # 0.6 L (1.0-4.8) k/uL Sodium 136 L (137-145) mmol/L Glucose 126 H (74-99) mg/dL Magnesium 1.4 L (1.6-2.3) mg/dL ALT 40 H (4-34) U/L Microbiology - Last 24 Hours (Table) 04/16/21 17:41 Urine Culture - Preliminary Urine,Voided
[2021-04-17] MEDS: MAGNESIUM SULFATE-D5W PMX 1 GM in DEXTROSE/WATER 1 100ML.BAG IVPB SCH ×3 (11:56→14:28)
[2021-04-17] MEDS: PROCHLORPERAZINE INJ 10 MG/2 ML VIAL IVP PRN (12:05)
--- NOTE | 2021-04-17 17:01 | P.PN ---
Subjective Progress Note Date: 04/17/21 This is a 75-year-old female patient of Dr. Cifuentes who initially presented to the ER with complaints of feeling lightheaded and feeling like she was going to pass out. Patient did report that she throughout once in route to ER. Upon arrival to the ER patient was sent to x-ray where she became unresponsive and pulseless. CPR was initiated and patient evaluated went off and pulses did return. Patient has past medical history of coronary artery disease with multiple stents, AICD and pacemaker placement and patient was recently hospitalized for CHF in which she was started on Lasix. Upon arrival patient was found to have a low potassium of 2.7. Creatinine also elevated 2.13 and bun 29. Troponins also mildly elevated 0.048 and 0.059. Patient was started on IV amiodarone and cardiology services have been consulted. Dr. Flores also consulted for AICD and pacemaker check. Patient is currently resting comfortably in bed heart rate remains in the 40s. Patient currently on IV amiodarone. Currently on room air sating 100%. Chest x-ray was performed showing no acute pulmonary process. Patient denies any recent illness. Patient denies nausea vomiting or diarrhea at home. Patient denies any urinary burning or frequency On 04/14/2021 patient is alert and oriented 3. Patient reports she had an uneventful night was able to get some sleep. Medications were adjusted yesterday to Core, Mexiti,l and Aldactone. Heart rate remains in the 40s and 50s. Dr. Flores following for AICD and pacemaker. Pulmoary. services also consulted. We'll continue to monitor patient and replace electrolytes as needed. At this time patient denies chest pain or shortness of breath. Patient denies nausea vomiting or diarrhea. Patient denies any urinary burning or frequency On 04/15/2021 Patient was seen and examined on the medical floor, she is alert and oriented x 3 in no distress, she denies any complaints there is no fever or chills no headache or dizziness no chest pain no shortness of breath no palpitation no cough no nausea or vomiting no abdominal pain no diarrhea no blood in the stools no burning with urination no frequency or urgency and no hematuria, there is no weakness or numbness in any of the extremities no change in vision speech or gait. White blood count continues to be elevated will check urine analysis and chest x-ray will continue to monitor closely On 04/16/2021 Patient is alert and oriented x 3 in no distress, she denies any complaints there is no fever or chills no headache or dizziness no chest pain no shortness of breath no palpitation no cough no nausea or vomiting no abdominal pain no diarrhea no blood in the stools no burning with urination no frequency or urgency and no hematuria, there is no weakness or numbness in any of the extremities no change in vision speech or gait. patient has evidence of UTI, she was started on IV Rocephin. Urine culture requested. Cardiology started Entresto, will continue to monitor. On 04/17/2021 Patient was seen and examined on the medical floor, he is alert and oriented x 3 in no distress, he denies any complaints there is no fever or chills no headache or dizziness no chest pain no shortness of breath no palpitation no cough no nausea or vomiting no abdominal pain no diarrhea no blood in the stools no burning with urination no frequency or urgency and no hematuria, there is no weakness or numbness in any of the extremities no change in vision speech or gait., Magnesium is low we are replacing today, medication reviewed continue current regimen with recheck in a.m. Objective - Vital Signs Vital signs: Vital Signs Temp 97.6 F 04/17/21 15:30 Pulse 55 L 04/17/21 15:30 Resp 18 04/17/21 15:30 BP 114/57 04/17/21 15:30 Pulse Ox 97 04/17/21 15:30 Intake & Output 04/16/21 04/17/21 04/17/21 18:59 06:59 18:59 Intake Total 240 480 200 Output Total 0 Balance 240 480 200 Weight 59 kg Intake: Oral 240 480 200 Output: Urine 0 Stool 0 Other: Voiding Method Toilet Toilet Toilet # Voids 1 1 1 # Bowel Movements 1 1 1 - Exam Head normocephalic Neck supple Lungs clear to auscultation bilaterally no wheezing or crackles Heart regular rate and rhythm S1-S2, no rub or gallop Abdomen is soft nontender nondistended positive bowel sounds no hepatosplenomegaly Extremities no edema Neuro alert and orientated to 3 - Labs CBC & Chem 7: 04/17/21 06:44 04/17/21 06:44 Labs: Abnormal Lab Results - Last 24 Hours (Table) 04/17/21 04/17/21 04/17/21 Range/Units 06:44 06:44 06:44 WBC 12.3 H (3.8-10.6) k/uL Neutrophils # 11.1 H (1.3-7.7) k/uL Lymphocytes # 0.6 L (1.0-4.8) k/uL Sodium 136 L (137-145) mmol/L Glucose 126 H (74-99) mg/dL Magnesium 1.4 L (1.6-2.3) mg/dL ALT 40 H (4-34) U/L Microbiology - Last 24 Hours (Table) 04/16/21 17:41 Urine Culture - Preliminary Urine,Voided Assessment and Plan Assessment: 1. Cardiac arrest secondary to arrhythmia. Defibrillator fired with pulses returning. Cardiology services consulted. Patient currently maintained on amiodarone. Mexitil added 2. Hypokalemia likely secondary to initiation of Lasix. Replace per protocol repeat potassium 3.8 3. Recent hospitalization for acute systolic congestive heart failure. Patient was started on Lasix as has been adjusted to Aldactone per cardiology services to prevent hypokalemia 4. Underlying history of ventricular tachycardia. AICD placement in February 2021 5. Mildly elevated troponin level. Cardiology services have been consulted 6. Underlying history of coronary artery disease with recent angioplasty and stent placement. Patient maintained on Brilinta 7. History of stroke 8. History of essential hypertension 9. History of hyperlipidemia 10. History of colon cancer 11. Leukocytosis will check urine analysis and chest x-ray Cardiology services following. Medications adjusted Repeat labs ordered
[2021-04-17] MEDS ORDERED: AMIODARONE 200 MG TAB PO SCH (21:00)
[2021-04-17] MEDS: LATANOPROST 0.005% OPHTH DROPS 2.5 ML BTL LEFT EYE SCH (21:13)
[2021-04-17] MEDS: PRAVASTATIN SODIUM 80 MG TAB PO SCH (21:19)
[2021-04-18] MEDS: MELATONIN 3 MG TABLET PO PRN ×2 (00:02→23:59)
[2021-04-18] MEDS: PANTOPRAZOLE 40 MG TABLET PO SCH (06:37)
[2021-04-18 07:08] LABS: Magnesium 2.1 mg/dL (1.6-2.3); Potassium 2.9 mmol/L (3.5-5.1)
[2021-04-18] MEDS ORDERED: Potassium Replacement Protocol 1 EACH MISC MISCELLANE PRN (08:42)
[2021-04-18] MEDS: AMIODARONE 200 MG TAB PO SCH ×2 (08:46→20:27)
[2021-04-18] MEDS: SPIRONOLACTONE 25 MG TAB PO SCH (08:46)
[2021-04-18] MEDS: APIXABAN 5 MG TAB PO SCH ×2 (08:46→20:27)
[2021-04-18] MEDS: carvediloL 12.5 MG TAB PO SCH ×2 (08:46→17:49)
[2021-04-18] MEDS: SACUBITRIL/VALSARTAN 24 MG-26 MG TABLET PO SCH ×2 (08:46→20:26)
[2021-04-18] MEDS: NON FORMULARY DRUG (Loteprednol Etabonate [Inveltys] 2.8 ML Drops.Susp) RIGHT EYE SCH (08:47)
[2021-04-18] MEDS: TICAGRELOR 90 MG TAB PO SCH ×2 (08:47→20:26)
[2021-04-18] MEDS: BRIMONIDINE TARTRATE 0.2% DROPS 5 ML BTL LEFT EYE SCH ×2 (08:48→20:28)
[2021-04-18] MEDS: POTASSIUM CHLORIDE ER 20 MEQ TAB.ER PO SCH ×4 (08:57→11:38)
[2021-04-18] MEDS: TIMOLOL 0.5% OPHTH DROPS 5 ML BTL LEFT EYE SCH ×2 (09:05→20:28)
[2021-04-18 09:28] LABS: Basophils % (A) 0 %; Eosinophils # (A) 0.2 k/uL (0-0.7); Eosinophils % (A) 2 %; HGB 10.3 gm/dL (11.4-16.0); Lymphocytes # (A) 0.6 k/uL (1.0-4.8); Lymphocytes % (A) 7 %; MCHC 33.1 g/dL (31.0-37.0); MCV 90.8 fL (80.0-100.0); Mean Platelet Volume 9.1; Monocytes # (A) 0.5 k/uL (0-1.0); Monocytes % (A) 6 %; Neutrophils # (A) 7.3 k/uL (1.3-7.7); Neutrophils % (A) 84 %; Platelet Count 244 k/uL (150-450); RBC 3.42 m/uL (3.80-5.40); RDW 15.5 % (11.5-15.5); WBC 8.7 k/uL (3.8-10.6)
--- NOTE | 2021-04-18 10:59 | P.PN ---
Subjective Progress Note Date: 04/18/21 This is a 75-year-old female patient of Dr. Cifuentes who initially presented to the ER with complaints of feeling lightheaded and feeling like she was going to pass out. Patient did report that she throughout once in route to ER. Upon arrival to the ER patient was sent to x-ray where she became unresponsive and pulseless. CPR was initiated and patient evaluated went off and pulses did return. Patient has past medical history of coronary artery disease with multiple stents, AICD and pacemaker placement and patient was recently hospitalized for CHF in which she was started on Lasix. Upon arrival patient was found to have a low potassium of 2.7. Creatinine also elevated 2.13 and bun 29. Troponins also mildly elevated 0.048 and 0.059. Patient was started on IV amiodarone and cardiology services have been consulted. Dr. Flores also consulted for AICD and pacemaker check. Patient is currently resting comfortably in bed heart rate remains in the 40s. Patient currently on IV amiodarone. Currently on room air sating 100%. Chest x-ray was performed showing no acute pulmonary process. Patient denies any recent illness. Patient denies nausea vomiting or diarrhea at home. Patient denies any urinary burning or frequency On 04/14/2021 patient is alert and oriented 3. Patient reports she had an uneventful night was able to get some sleep. Medications were adjusted yesterday to Core, Mexiti,l and Aldactone. Heart rate remains in the 40s and 50s. Dr. Flores following for AICD and pacemaker. Pulmoary. services also consulted. We'll continue to monitor patient and replace electrolytes as needed. At this time patient denies chest pain or shortness of breath. Patient denies nausea vomiting or diarrhea. Patient denies any urinary burning or frequency On 04/15/2021 Patient was seen and examined on the medical floor, she is alert and oriented x 3 in no distress, she denies any complaints there is no fever or chills no headache or dizziness no chest pain no shortness of breath no palpitation no cough no nausea or vomiting no abdominal pain no diarrhea no blood in the stools no burning with urination no frequency or urgency and no hematuria, there is no weakness or numbness in any of the extremities no change in vision speech or gait. White blood count continues to be elevated will check urine analysis and chest x-ray will continue to monitor closely On 04/16/2021 Patient is alert and oriented x 3 in no distress, she denies any complaints there is no fever or chills no headache or dizziness no chest pain no shortness of breath no palpitation no cough no nausea or vomiting no abdominal pain no diarrhea no blood in the stools no burning with urination no frequency or urgency and no hematuria, there is no weakness or numbness in any of the extremities no change in vision speech or gait. patient has evidence of UTI, she was started on IV Rocephin. Urine culture requested. Cardiology started Entresto, will continue to monitor. On 04/17/2021 Patient was seen and examined on the medical floor, he is alert and oriented x 3 in no distress, he denies any complaints there is no fever or chills no headache or dizziness no chest pain no shortness of breath no palpitation no cough no nausea or vomiting no abdominal pain no diarrhea no blood in the stools no burning with urination no frequency or urgency and no hematuria, there is no weakness or numbness in any of the extremities no change in vision speech or gait., Magnesium is low we are replacing today, medication reviewed continue current regimen with recheck in a.m. On 04/18/2021 patient alert and oriented 3. Potassium low at 2.9. Orders to replace per protocol. We'll also order patient to receive potassium daily 10 mEq and magnesium 400 daily. At this time patient denies chest pain or shortness of breath. Patient denies nausea vomiting or diarrhea. Patient denies any urinary burning or frequency. Per Cardiology mexiletine was DC'd due to increased nausea patient currently maintained on Entresto and Aldactone Objective - Vital Signs Vital signs: Vital Signs Temp 97 F L 04/18/21 08:43 Pulse 57 L 04/18/21 08:43 Resp 16 04/18/21 08:43 BP 116/59 04/18/21 08:43 Pulse Ox 97 04/18/21 08:43 Intake & Output 04/17/21 04/18/21 04/18/21 18:59 06:59 18:59 Intake Total 1460 50 Balance 1460 50 Weight 58.9 kg Intake: Intake, IV Titration 300 Amount Magnesium Sulfate-D5w Pmx 300 1 gm In Dextrose/Water 1 100ml.bag @ 100 mls/hr IVPB Q1H SPRING Rx#: [id number] Oral 1160 50 Other: Voiding Method Toilet Toilet # Voids 1 1 1 # Bowel Movements 1 1 - Exam Head normocephalic Neck supple Lungs clear to auscultation bilaterally no wheezing or crackles Heart regular rate and rhythm S1-S2, no rub or gallop Abdomen is soft nontender nondistended positive bowel sounds no hepa tosplenomegaly Extremities no edema Neuro alert and orientated to 3 - Labs CBC & Chem 7: 04/18/21 05:25 04/18/21 05:25 Labs: Abnormal Lab Results - Last 24 Hours (Table) 04/18/21 04/18/21 Range/Units 05:25 05:25 RBC 3.42 L (3.80-5.40) m/uL Hgb 10.3 L (11.4-16.0) gm/dL Hct 31.0 L (34.0-46.0) % Lymphocytes # 0.6 L (1.0-4.8) k/uL Sodium 134 L (137-145) mmol/L Potassium 2.9 L (3.5-5.1) mmol/L Glucose 103 H (74-99) mg/dL Microbiology - Last 24 Hours (Table) 04/16/21 17:41 Urine Culture - Final Urine,Voided Assessment and Plan Assessment: 1. Cardiac arrest secondary to arrhythmia. Defibrillator fired with pulses returning. Cardiology services consulted. Patient currently maintained on amiodarone. Mexitil added 2. Hypokalemia likely secondary to initiation of Lasix. Replace per protocol repeat potassium 3.8 3. Recent hospitalization for acute systolic congestive heart failure. Patient was started on Lasix as has been adjusted to Aldactone per cardiology services to prevent hypokalemia 4. Underlying history of ventricular tachycardia. AICD placement in February 2021 5. Mildly elevated troponin level. Cardiology services have been consulted 6. Underlying history of coronary artery disease with recent angioplasty and stent placement. Patient maintained on Brilinta 7. History of stroke 8. History of essential hypertension 9. History of hyperlipidemia 10. History of colon cancer 11. Leukocytosis will check urine analysis and chest x-ray. Patient's UA positive for urinary tract infection. Patient maintained on Rocephin. Urine culture pending Cardiology services following. Medications adjusted Repeat labs ordered Patient started on daily potassium and magnesium 04/18/2001 repeat potassium per protocol ordered Repeat labs in a.m.
--- NOTE | 2021-04-18 11:09 | PN ---
PROGRESS NOTE Ms. Contreras is a 75-year-old female with known history of severe ischemic cardiomyopathy status post percutaneous revascularization of her LAD in [place], status post ICD implant for recurrent ventricular tachycardia and ventricular fibrillation, history of recent stroke. She is feeling better today. Her nausea has resolved after stopping the mexiletine. She denying any chest pain. No dizziness. No palpitation. She has no nausea. She has been ambulating. She continued on amiodarone 400 mg twice a day, Eliquis 5 mg twice a day, Coreg 12.5 mg twice a day. She is on pravastatin 80 mg daily, Entresto 24/26 mg daily, Brilinta 90 mg twice a day and spironolactone 50 mg daily. PHYSICAL EXAMINATION: Blood pressure 116/60 with a heart rate in the 60s. LUNGS: Clear. HEART: Regular rhythm S1, S2. No S3. No rub. ABDOMEN: Soft and nontender. EXTREMITIES: No edema. LAB DATA: Lab data revealed a potassium down to 2.9 again, BUN and creatinine 11 and 0.82. Her hemoglobin is 10.3, white blood cell of 8.7. IMPRESSION: 1. Recurrent ventricular tachycardia in a patient with a history of severe ischemic cardiomyopathy status post myocardial infarction early this year in [place]. 2. Status post ICD implantation. 3. Recurrent episodes of hypokalemia. 4. Hypomagnesemia, resolved. 5. History of colon cancer. RECOMMENDATION: From the cardiac standpoint, I will start her on daily dose of potassium. I will add magnesium oxide to her regimen. We will follow her renal function and her potassium. If they remains stable, I am hopeful she may be able to be discharged home tomorrow with close followup with her potassium. It appears that whenever she is hypokalemic that is when she is getting into the increased risk of ventricle ectopic activity. Depending on her progress, further recommendation will be made. MMODL / IJN: [id number] /
[2021-04-18] MEDS: MAGNESIUM OXIDE 400 MG TAB PO SCH (11:38)
[2021-04-18] MEDS: LOPERAMIDE 2 MG CAP PO PRN (11:40)
[2021-04-18] MEDS ORDERED: POTASSIUM CHLORIDE ER 20 MEQ TAB.ER PO STA (16:58)
[2021-04-18] MEDS: PRAVASTATIN SODIUM 80 MG TAB PO SCH (20:27)
[2021-04-18] MEDS: LATANOPROST 0.005% OPHTH DROPS 2.5 ML BTL LEFT EYE SCH (20:28)
[2021-04-19] MEDS: LOPERAMIDE 2 MG CAP PO PRN (03:27)
[2021-04-19] MEDS: PROCHLORPERAZINE INJ 10 MG/2 ML VIAL IVP PRN ×2 (06:38→22:19)
[2021-04-19] MEDS: carvediloL 12.5 MG TAB PO SCH ×2 (06:39→17:11)
[2021-04-19] MEDS: PANTOPRAZOLE 40 MG TABLET PO SCH (06:39)
[2021-04-19] MEDS ORDERED: POTASSIUM CHLORIDE ER 10 MEQ TAB.ER.PRT PO SCH (09:00)
[2021-04-19] MEDS: TICAGRELOR 90 MG TAB PO SCH ×2 (09:05→19:52)
[2021-04-19] MEDS: POTASSIUM CHLORIDE ER 20 MEQ TAB.ER PO SCH (09:05)
[2021-04-19] MEDS: APIXABAN 5 MG TAB PO SCH ×2 (09:06→19:52)
[2021-04-19] MEDS: SPIRONOLACTONE 25 MG TAB PO SCH (09:06)
[2021-04-19] MEDS: AMIODARONE 200 MG TAB PO SCH ×2 (09:06→19:52)
[2021-04-19] MEDS: MAGNESIUM OXIDE 400 MG TAB PO SCH (09:06)
[2021-04-19] MEDS: SACUBITRIL/VALSARTAN 24 MG-26 MG TABLET PO SCH ×2 (09:06→19:52)
[2021-04-19] MEDS: TIMOLOL 0.5% OPHTH DROPS 5 ML BTL LEFT EYE SCH ×2 (09:09→19:53)
[2021-04-19] MEDS: BRIMONIDINE TARTRATE 0.2% DROPS 5 ML BTL LEFT EYE SCH ×3 (09:10→19:52)
[2021-04-19] MEDS: NON FORMULARY DRUG (Loteprednol Etabonate [Inveltys] 2.8 ML Drops.Susp) RIGHT EYE SCH (09:10)
[2021-04-19 09:45] LABS: Basophils % (A) 0 %; Eosinophils # (A) 0.3 k/uL (0-0.7); Eosinophils % (A) 3 %; HCT 33.8 % (34.0-46.0); HGB 10.9 gm/dL (11.4-16.0); Lymphocytes # (A) 0.8 k/uL (1.0-4.8); Lymphocytes % (A) 9 %; MCH 29.6 pg (25.0-35.0); MCHC 32.2 g/dL (31.0-37.0); MCV 91.9 fL (80.0-100.0); Mean Platelet Volume 8.7; Monocytes # (A) 0.5 k/uL (0-1.0); Monocytes % (A) 5 %; Neutrophils # (A) 7.3 k/uL (1.3-7.7); Neutrophils % (A) 81 %; Platelet Count 341 k/uL (150-450); RBC 3.68 m/uL (3.80-5.40); RDW 15.8 % (11.5-15.5)
[2021-04-19 10:04] LABS: Albumin 3.2 g/dL (3.5-5.0); Calcium 9.5 mg/dL (8.4-10.2); Potassium 4.2 mmol/L (3.5-5.1); Total Bilirubin 0.4 mg/dL (0.2-1.3); Total Protein 5.7 g/dL (6.3-8.2)
--- NOTE | 2021-04-19 13:17 | PN ---
PROGRESS NOTE Ms. Contreras is a 75-year-old female with known history of severe ischemic cardiomyopathy status post ICD implantation and discharges from the device, history of recent stroke, history of colon cancer. She is feeling better overall. Her diarrhea and nausea are improving. Her breathing is stable. She denies any chest pain. She denies any dizziness or palpitation. She ambulated yesterday and felt reasonably well. On the monitor, she is in sinus mechanism. She continues to be on amiodarone 400 mg twice a day, Eliquis 5 mg twice a day, carvedilol 12.5 mg twice a day, Entresto 24-26 mg daily Aldactone 50 mg daily, potassium 20 mEq daily, pravastatin 80 mg daily and Brilinta 90 mg twice a day. PHYSICAL EXAMINATION: Blood pressure running in the 110s to 120s with a heart rate in the 50s and 60s. LUNGS: Clear. HEART: Regular rate and rhythm. S1, S2. No S3. No rub. ABDOMEN: Soft, nontender. EXTREMITIES: No edema. LAB DATA: Potassium up to 4.2. BUN creatinine of 10 and 0.85. Her AST is 29, ALT 28. IMPRESSION: 1. Severe ischemic cardiomyopathy with no overt signs of failure at this time. 2. Status post ICD implantation with discharge from the device, stable. 3. Hypokalemia, resolving. 4. Hypomagnesemia, resolving. 5. Recent cerebrovascular accident, treated with tPA. 6. History of colon cancer. RECOMMENDATION: From the cardiac standpoint, will continue present therapy. She may be able to be discharged home today and she will have a renal function and magnesium evaluation in addition to potassium on Friday to further adjusted the treatment. We may need to stop her supplementation of potassium. It appears that every time she had diarrhea she gets the hypokalemia. Depending on her progress further recommendation will be made. She will be followed in the office after discharge. MMODL / IJN: [id number] /
--- NOTE | 2021-04-19 17:41 | P.PN ---
Subjective Progress Note Date: 04/19/21 This is a 75-year-old female patient of Dr. Cifuentes who initially presented to the ER with complaints of feeling lightheaded and feeling like she was going to pass out. Patient did report that she throughout once in route to ER. Upon arrival to the ER patient was sent to x-ray where she became unresponsive and pulseless. CPR was initiated and patient evaluated went off and pulses did return. Patient has past medical history of coronary artery disease with multiple stents, AICD and pacemaker placement and patient was recently hospitalized for CHF in which she was started on Lasix. Upon arrival patient was found to have a low potassium of 2.7. Creatinine also elevated 2.13 and bun 29. Troponins also mildly elevated 0.048 and 0.059. Patient was started on IV amiodarone and cardiology services have been consulted. Dr. Flores also consulted for AICD and pacemaker check. Patient is currently resting comfortably in bed heart rate remains in the 40s. Patient currently on IV amiodarone. Currently on room air sating 100%. Chest x-ray was performed showing no acute pulmonary process. Patient denies any recent illness. Patient denies nausea vomiting or diarrhea at home. Patient denies any urinary burning or frequency On 04/14/2021 patient is alert and oriented 3. Patient reports she had an uneventful night was able to get some sleep. Medications were adjusted yesterday to Core, Mexiti,l and Aldactone. Heart rate remains in the 40s and 50s. Dr. Flores following for AICD and pacemaker. Pulmoary. services also consulted. We'll continue to monitor patient and replace electrolytes as needed. At this time patient denies chest pain or shortness of breath. Patient denies nausea vomiting or diarrhea. Patient denies any urinary burning or frequency On 04/15/2021 Patient was seen and examined on the medical floor, she is alert and oriented x 3 in no distress, she denies any complaints there is no fever or chills no headache or dizziness no chest pain no shortness of breath no palpitation no cough no nausea or vomiting no abdominal pain no diarrhea no blood in the stools no burning with urination no frequency or urgency and no hematuria, there is no weakness or numbness in any of the extremities no change in vision speech or gait. White blood count continues to be elevated will check urine analysis and chest x-ray will continue to monitor closely On 04/16/2021 Patient is alert and oriented x 3 in no distress, she denies any complaints there is no fever or chills no headache or dizziness no chest pain no shortness of breath no palpitation no cough no nausea or vomiting no abdominal pain no diarrhea no blood in the stools no burning with urination no frequency or urgency and no hematuria, there is no weakness or numbness in any of the extremities no change in vision speech or gait. patient has evidence of UTI, she was started on IV Rocephin. Urine culture requested. Cardiology started Entresto, will continue to monitor. On 04/17/2021 Patient was seen and examined on the medical floor, he is alert and oriented x 3 in no distress, he denies any complaints there is no fever or chills no headache or dizziness no chest pain no shortness of breath no palpitation no cough no nausea or vomiting no abdominal pain no diarrhea no blood in the stools no burning with urination no frequency or urgency and no hematuria, there is no weakness or numbness in any of the extremities no change in vision speech or gait., Magnesium is low we are replacing today, medication reviewed continue current regimen with recheck in a.m. On 04/18/2021 patient alert and oriented 3. Potassium low at 2.9. Orders to replace per protocol. We'll also order patient to receive potassium daily 10 mEq and magnesium 400 daily. At this time patient denies chest pain or shortness of breath. Patient denies nausea vomiting or diarrhea. Patient denies any urinary burning or frequency. Per Cardiology mexiletine was DC'd due to increased nausea patient currently maintained on Entresto and Aldactone On 04/19/2021 Patient was seen and examined on the medical floor, he is alert and oriented x 3 in no distress, she was still having episodes of diarrhea last night and nausea as this morning she was very concerned about going home and having her potassium and magnesium go out of range again he denies any complaints there is no fever or chills no headache or dizziness no chest pain no shortness of breath no palpitation no cough no vomiting no abdominal pain no bl ood in the stools no burning with urination no frequency or urgency and no hematuria, there is no weakness or numbness in any of the extremities no change in vision speech or gait. Objective - Vital Signs Vital signs: Vital Signs Temp 96.7 F L 04/19/21 12:28 Pulse 59 L 04/19/21 12:28 Resp 16 04/19/21 12:28 BP 128/78 04/19/21 12:28 Pulse Ox 97 04/19/21 12:28 Intake & Output 04/18/21 04/19/21 04/19/21 18:59 06:59 18:59 Intake Total 1010 480 720 Output Total 0 Balance 1010 480 720 Weight 60.5 kg Intake: Oral 1010 480 720 Output: Stool 0 Other: Voiding Method Toilet # Voids 1 1 1 # Bowel Movements 1 1 - Exam Head normocephalic Neck supple Lungs clear to auscultation bilaterally no wheezing or crackles Heart regular rate and rhythm S1-S2, no rub or gallop Abdomen is soft nontender nondistended positive bowel sounds no hepatosplenomegaly Extremities no edema Neuro alert and orientated to 3 - Labs CBC & Chem 7: 04/19/21 08:27 04/19/21 08:27 Labs: Abnormal Lab Results - Last 24 Hours (Table) 04/19/21 04/19/21 Range/Units 08:27 08:27 RBC 3.68 L (3.80-5.40) m/uL Hgb 10.9 L (11.4-16.0) gm/dL Hct 33.8 L (34.0-46.0) % RDW 15.8 H (11.5-15.5) % Lymphocytes # 0.8 L (1.0-4.8) k/uL Sodium 136 L (137-145) mmol/L Chloride 109 H (98-107) mmol/L Carbon Dioxide 21 L (22-30) mmol/L Glucose 119 H (74-99) mg/dL Total Protein 5.7 L (6.3-8.2) g/dL Albumin 3.2 L (3.5-5.0) g/dL Assessment and Plan Assessment: 1. Cardiac arrest secondary to arrhythmia. Defibrillator fired with pulses returning. Cardiology services consulted. Patient currently maintained on amiodarone. Mexitil added 2. Hypokalemia likely secondary to initiation of Lasix. Replace per protocol repeat potassium 3.8 3. Recent hospitalization for acute systolic congestive heart failure. Patient was started on Lasix as has been adjusted to Aldactone per cardiology services to prevent hypokalemia 4. Underlying history of ventricular tachycardia. AICD placement in February 2021 5. Mildly elevated troponin level. Cardiology services have been consulted 6. Underlying history of coronary artery disease with recent angioplasty and stent placement. Patient maintained on Brilinta 7. History of stroke 8. History of essential hypertension 9. History of hyperlipidemia 10. History of colon cancer 11. Leukocytosis will check urine analysis and chest x-ray. Patient's UA positive for urinary tract infection. Patient maintained on Rocephin. Urine culture pending Cardiology services following. Medications adjusted Repeat labs ordered Patient started on daily potassium and magnesium 04/18/2001 repeat potassium per protocol ordered Repeat labs in a.m. Will continue with current management will recheck labs including potassium and magnesium in a.m. possible discharge to home tomorrow
[2021-04-19] MEDS: LATANOPROST 0.005% OPHTH DROPS 2.5 ML BTL LEFT EYE SCH (19:52)
[2021-04-19] MEDS: PRAVASTATIN SODIUM 80 MG TAB PO SCH (19:52)
[2021-04-20] MEDS: PANTOPRAZOLE 40 MG TABLET PO SCH (06:28)
[2021-04-20] MEDS: carvediloL 12.5 MG TAB PO SCH (06:28)
[2021-04-20 08:45] LABS: Basophils # (A) 0.1 k/uL (0-0.2); Basophils % (A) 1 %; Eosinophils # (A) 0.2 k/uL (0-0.7); Eosinophils % (A) 3 %; HCT 33.9 % (34.0-46.0); HGB 10.5 gm/dL (11.4-16.0); Hypochromasia Slight; Lymphocytes # (A) 0.7 k/uL (1.0-4.8); Lymphocytes % (A) 9 %; MCH 29.3 pg (25.0-35.0); MCHC 31.1 g/dL (31.0-37.0); MCV 94.3 fL (80.0-100.0); Mean Platelet Volume 8.5; Monocytes # (A) 0.3 k/uL (0-1.0); Monocytes % (A) 4 %; Neutrophils # (A) 6.2 k/uL (1.3-7.7); Neutrophils % (A) 82 %; Platelet Count 298 k/uL (150-450); RBC 3.59 m/uL (3.80-5.40); RDW 15.9 % (11.5-15.5); WBC 7.6 k/uL (3.8-10.6)
[2021-04-20 09:02] LABS: Calcium 9.5 mg/dL (8.4-10.2); Magnesium 1.7 mg/dL (1.6-2.3); Potassium 4.1 mmol/L (3.5-5.1); Total Bilirubin 0.4 mg/dL (0.2-1.3); Total Protein 5.6 g/dL (6.3-8.2)
[2021-04-20 09:13] VITALS: BP 122/58; PULSE 61; RESP 18; TEMP 98.2
[2021-04-20] MEDS: APIXABAN 5 MG TAB PO SCH (09:24)
[2021-04-20] MEDS: AMIODARONE 200 MG TAB PO SCH (09:24)
[2021-04-20] MEDS: MAGNESIUM OXIDE 400 MG TAB PO SCH (09:25)
[2021-04-20] MEDS: SACUBITRIL/VALSARTAN 24 MG-26 MG TABLET PO SCH (09:25)
[2021-04-20] MEDS: TICAGRELOR 90 MG TAB PO SCH (09:25)
[2021-04-20] MEDS: POTASSIUM CHLORIDE ER 20 MEQ TAB.ER PO SCH (09:25)
[2021-04-20] MEDS: SPIRONOLACTONE 25 MG TAB PO SCH (09:25)
[2021-04-20] MEDS: BRIMONIDINE TARTRATE 0.2% DROPS 5 ML BTL LEFT EYE SCH (09:30)
[2021-04-20] MEDS: TIMOLOL 0.5% OPHTH DROPS 5 ML BTL LEFT EYE SCH (09:32)
[2021-04-20] MEDS: NON FORMULARY DRUG (Loteprednol Etabonate [Inveltys] 2.8 ML Drops.Susp) RIGHT EYE SCH (09:32)
--- NOTE | 2021-04-20 10:30 | P.DS ---
Providers Date of admission: 04/12/21 16:28 Expected date of discharge: 04/20/21 Attending physician: Ritu Walker Consults: 04/12/21 16:28 Consult Physician Stat Consulting Provider: Richy Boyle Consult Reason/Comments: Cardiac arrest, near syncope Do you want consulting provider notified?: Yes 04/13/21 10:02 Consult Physician Routine Consulting Provider: Owen Upton Consult Reason/Comments: V fib and V tach with shock Do you want consulting provider notified?: Yes Primary care physician: Crystal Cifuentes [facility] Course: Discharge diagnosis 1. Cardiac arrest secondary to arrhythmia. Defibrillator fired with pulses returning. Cardiology services consulted. Patient currently maintained on amiodarone. 2. Hypokalemia likely secondary to initiation of Lasix. 3. Recent hospitalization for acute systolic congestive heart failure. Patient was started on Lasix as has been adjusted to Aldactone per cardiology services to prevent hypokalemia 4. Underlying history of ventricular tachycardia. AICD placement in February 2021 5. Mildly elevated troponin level. Cardiology services have been consulted 6. Underlying history of coronary artery disease with recent angioplasty and stent placement. Patient maintained on Brilinta 7. History of stroke 8. History of essential hypertension 9. History of hyperlipidemia 10. History of colon cancer 11. Leukocytosis will check urine analysis and chest x-ray. Patient's UA positive for urinary tract infection. Patient maintained on Rocephin. Urine culture pending. Patient completed antibiotic course no antibiotics upon discharge recommend Dr. Cifuentes check UA in office next week Hospital course This is a 75-year-old female patient of Dr. Cifuentes who initially presented to the ER with complaints of feeling lightheaded and feeling like she was going to pass out. Patient did report that she throughout once in route to ER. Upon arrival to the ER patient was sent to x-ray where she became unresponsive and pulseless. CPR was initiated and patient evaluated went off and pulses did return. Patient has past medical history of coronary artery disease with multiple stents, AICD and pacemaker placement and patient was recently hospitalized for CHF in which she was started on Lasix. Upon arrival patient was found to have a low potassium of 2.7. Creatinine also elevated 2.13 and bun 29. Troponins also mildly elevated 0.048 and 0.059. Patient was started on IV amiodarone and cardiology services have been consulted. Dr. Flores also consulted for AICD and pacemaker check. Patient is currently resting comfortably in bed heart rate remains in the 40s. Patient currently on IV amiodarone. Currently on room air sating 100%. Chest x-ray was performed showing no acute pulmonary process. Patient denies any recent illness. Patient denies nausea vomiting or diarrhea at home. Patient denies any urinary burning or frequency On 04/14/2021 patient is alert and oriented 3. Patient reports she had an uneventful night was able to get some sleep. Medications were adjusted yesterday to Core, Mex[place],l and Aldactone. Heart rate remains in the 40s and 50s. Dr. Flores following for AICD and pacemaker. Pulmoary. services also consulted. We'll continue to monitor patient and replace electrolytes as needed. At this time patient denies chest pain or shortness of breath. Patient denies nausea vomiting or diarrhea. Patient denies any urinary burning or frequency On 04/15/2021 Patient was seen and examined on the medical floor, she is alert and oriented x 3 in no distress, she denies any complaints there is no fever or chills no headache or dizziness no chest pain no shortness of breath no palpitation no cough no nausea or vomiting no abdominal pain no diarrhea no blood in the stools no burning with urination no frequency or urgency and no hematuria, there is no weakness or numbness in any of the extremities no change in vision speech or gait. White blood count continues to be elevated will check urine analysis and chest x-ray will continue to monitor closely On 04/16/2021 Patient is alert and oriented x 3 in no distress, she denies any complaints there is no fever or chills no headache or dizziness no chest pain no shortness of breath no palpitation no cough no nausea or vomiting no abdominal pain no diarrhea no blood in the stools no burning with urination no frequency or urgency and no hematuria, there is no weakness or numbness in any of the extremities no change in vision speech or gait. patient has evidence of UTI, she was started on IV Rocephin. Urine culture requested. Cardiology started Entresto, will continue to monitor. On 04/17/2021 Patient was seen and examined on the medical floor, he is alert and oriented x 3 in no distress, he denies any complaints there is no fever or chills no headache or dizziness no chest pain no shortness of breath no palpitation no cough no nausea or vomiting no abdominal pain no diarrhea no blood in the stools no burning with urination no frequency or urgency and no hematuria, there is no weakness or numbness in any of the extremities no change in vision speech or gait., Magnesium is low we are replacing today, medication reviewed continue current regimen with recheck in a.m. On 04/18/2021 patient alert and oriented 3. Potassium low at 2.9. Orders to replace per protocol. We'll also order patient to receive potassium daily 10 mEq and magnesium 400 daily. At this time patient denies chest pain or shortness of breath. Patient denies nausea vomiting or diarrhea. Patient denies any urinary burning or frequency. Per Cardiology mexiletine was DC'd due to increased nausea patient currently maintained on Entresto and Aldactone On 04/19/2021 Patient was seen and examined on the medical floor, he is alert and oriented x 3 in no distress, she was still having episodes of diarrhea last night and nausea as this morning she was very concerned about going home and having her potassium and magnesium go out of range again he denies any complaints there is no fever or chills no headache or dizziness no chest pain no shortness of breath no palpitation no cough no vomiting no abdominal pain no blood in the stools no burning with urination no frequency or urgency and no hematuria, there is no weakness or numbness in any of the extremities no change in vision speech or gait. On 04/20/2021 patient alert and oriented 3. Potassium 4.1 magnesium 1.7 this AM. Medication for discharge completed per cardiology. Patient will be disch arged on potassium replacement 20 mEq and magnesium 400 BID. Orders to have labs rechecked on Friday per cardiology. Patient to follow-up with PCP and recommend recheck of urinary analysis next week. Patient did complete course of IV antibiotics during admission. At this time patient is complaining of occasional nausea at night after medication. Will DC with Compazine. Patient denies chest pain or shortness of breath. Patient denies nausea vomiting or diarrhea. Patient denies any urinary burning or frequency at this time Patient Condition at Discharge: Stable Plan - Discharge Summary Discharge Rx Participant: No New Discharge Prescriptions: New Magnesium Oxide [Mag-Ox] 400 mg PO BID 30 Days #60 tablet Sacubitril/Valsartan [Entresto 24 mg-26 mg Tablet] 1 each PO BID 30 Days #60 tablet Spironolactone [Aldactone] 50 mg PO DAILY 30 Days #60 tab carvediloL [Coreg*] 12.5 mg PO BID-W/MEALS 30 Days #60 tab Potassium Chloride ER [K-Dur 20] 20 meq PO DAILY 20 Days #20 tab.er.prt Amiodarone [Cordarone] 400 mg PO BID #120 tab Prochlorperazine [Compazine] 5 mg PO Q6HR PRN 2 Days #8 tab PRN Reason: Nausea Continue Ticagrelor [Brilinta] 90 mg PO BID Apixaban [Eliquis] 5 mg PO BID Pravastatin Sodium [Pravachol] 80 mg PO HS Discontinued Metoprolol Succinate [Toprol XL] 25 mg PO DAILY lisinopriL [Zestril] 2.5 mg PO DAILY Amiodarone [Cordarone] 200 mg PO Q12HR 30 Days #60 tab Furosemide [Lasix] 40 mg PO DAILY 30 Days #30 tab No Action Loteprednol Etabonate [Inveltys] 1 drop RIGHT EYE DAILY Loperamide [Imodium] 2 mg PO QID PRN PRN Reason: Loose Stool Melatonin 3 mg PO HS PRN PRN Reason: Insomnia Brimonidine Tartrate/Timolol [Combigan 0.2%-0.5% Eye Drops] 1 drop LEFT EYE BID Bimatoprost [Lumigan .01% Ophth Soln] 1 drop LEFT EYE HS Pantoprazole Sodium [Protonix] 40 mg PO DAILY Discharge Medication List Bimatoprost [Lumigan .01% Ophth Soln] 1 drop LEFT EYE HS 02/27/21 [History] Brimonidine Tartrate/Timolol [Combigan 0.2%-0.5% Eye Drops] 1 drop LEFT EYE BID 02/27/21 [History] Loperamide [Imodium] 2 mg PO QID PRN 02/27/21 [History] Loteprednol Etabonate [Inveltys] 1 drop RIGHT EYE DAILY 02/27/21 [History] Melatonin 3 mg PO HS PRN 02/27/21 [History] Pantoprazole Sodium [Protonix] 40 mg PO DAILY 02/27/21 [History] Pravastatin Sodium [Pravachol] 80 mg PO HS 02/27/21 [History] Ticagrelor [Brilinta] 90 mg PO BID 02/27/21 [History] Apixaban [Eliquis] 5 mg PO BID 04/03/21 [History] Sacubitril/Valsartan [Entresto 24 mg-26 mg Tablet] 1 each PO BID 30 Days #60 tablet 04/16/21 [Rx] Amiodarone [Cordarone] 400 mg PO BID #120 tab 04/19/21 [Rx] Potassium Chloride ER [K-Dur 20] 20 meq PO DAILY 20 Days #20 tab.er.prt 04/19/21 [Rx] Spironolactone [Aldactone] 50 mg PO DAILY 30 Days #60 tab 04/19/21 [Rx] carvediloL [Coreg*] 12.5 mg PO BID-W/MEALS 30 Days #60 tab 04/19/21 [Rx] Magnesium Oxide [Mag-Ox] 400 mg PO BID 30 Days #60 tablet 04/20/21 [Rx] Prochlorperazine [Compazine] 5 mg PO Q6HR PRN 2 Days #8 tab 04/20/21 [Rx] Follow up Appointment(s)/Referral(s): Clary Nice MD [STAFF PHYSICIAN] - 04/26/21 10:30 am Crystal Cifuentes MD [Primary Care Provider] - 04/23/21 2:15 pm (Saúl Boland NP) [facility], [NON-STAFF] - Ambulatory/Diagnostic Orders: Basic Metabolic Panel [LAB.AMB] Location: None Selected Magnesium [LAB.AMB] Location: None Selected Patient Instructions/Handouts: Acute Kidney Injury (DC), Hypokalemia (DC), Acute Coronary Syndrome (DC)
--- NOTE | 2021-04-20 14:42 | PN ---
PROGRESS NOTE Mrs. Contreras is a 75-year-old female with known history of severe ischemic cardiomyopathy, history of ICD implantation, recent cerebrovascular accident, who presented with discharge from the device related to hypokalemia. She is complaining of nausea at night. Otherwise, her breathing is stable. She is ambulating without difficulty. She denies any dizziness or palpitation. She is in sinus mechanism. She continues to be at this time on amiodarone 400 mg twice a day, Eliquis 5 mg twice a day, Coreg 12.5 mg twice a day, pravastatin 80 mg daily, Entresto 24/26 mg twice a day and Aldactone 50 mg daily in addition to Brilinta 90 mg twice a day and potassium 20 mEq daily. PHYSICAL EXAMINATION: Blood pressure 122/58 with the heart rate in the 60s. LUNGS: Clear. HEART: Regular rhythm S1, S2. No S3 with systolic murmur, no diastolic murmur. ABDOMEN: Soft nontender. EXTREMITIES: No edema. LAB DATA: Lab data revealed hemoglobin 10.5. BUN creatinine of 9 and 0.82. Potassium 4.1. Her sodium is 136. IMPRESSION: 1. History of recent ventricular tachycardia with a history of severe ischemic cardiomyopathy exacerbated by hypokalemia. 2. Ischemic cardiomyopathy. 3. Status post ICD implantation. 4. Status post stenting of the LAD in [place] earlier this year. 5. Recent stroke. 6. Hyperlipidemia. RECOMMENDATION: From the cardiac standpoint, the patient should be able to be discharged home today. She will be followed next week. She will have an evaluation of her renal function and potassium next week and depending on her level, further recommendation will be made. MMODL / IJN: [id number] /
--- NOTE | 2021-04-23 14:12 | CDI ---
Documentation Clarification Form Date: 04/23/2021 02:02:46 PM From: Alonzo Mujica Admit Date: 04/12/2021 04:28:00 PM Patient Name: Valerie Contreras Visit Number: [id number] Discharge Date: 04/20/2021 03:19:00 PM ATTENTION: The Clinical Documentation Specialists (CDI) and [facility] Coding Staff appreciate your assistance in clarifying documentation. Please respond to the clarification below the line at the bottom and electronically sign. The CDI & [facility] Coding staff will review the response and follow-up if needed. Please note: Queries are made part of the Legal Health Record. If you have any questions, please contact the author of this message via ITS. Dr. Ritu Walker Your patient has the documented diagnosis of unspecified systolic CHF per cardiac consult. Additional information regarding the acuity of the CHF. History/Risk Factors: prior hospitalization for acute systolic CHF Clinical Indicators: cardiac consult: systolic CHF Chest X Ray: No acute abnormality Treatment: Aldactone In your professional opinion, can you please clarify the [acuity and type] of CHF if known? [ ] Acute Systolic Heart Failure (reduced EF) [ ] Chronic Systolic Heart Failure (reduced EF) [ ] Acute on Chronic Systolic Heart Failure (reduced EF) [ ] Acute Diastolic Heart Failure (preserved EF) [ ] Chronic Diastolic Heart Failure (preserved EF) [ ] Acute on Chronic Diastolic Heart Failure (preserved EF) [ ] Acute Systolic & Diastolic Heart Failure [ ] Chronic Systolic & Diastolic Heart Failure [ ] Acute on Chronic Heart Failure Systolic & Diastolic Heart Failure [ ] Other, please specify [ ] Unable to determine Acute on chronic systolic congestive heart failure MTDD
== END 2021-04-20 15:19 | disposition home health service (06) | DRG 308 ==
LOC: EC 12:46 → 2SICU 16:28 → 3SCARD 04-13 10:23
PROVIDERS: ADMIT Internal Medicine; ATTEND Internal Medicine
DX: I49.01 Ventricular fibrillation (principal); I50.23 Acute on chronic systolic (congestive) heart failure; N17.9 Acute kidney failure, unspecified; I13.0 Hypertensive heart and chronic kidney disease with heart failure and stage 1 through stage 4 chronic kidney disease, or unspecified chronic kidney disease; N39.0 Urinary tract infection, site not specified; I46.2 Cardiac arrest due to underlying cardiac condition; I47.2 Ventricular tachycardia; I25.2 Old myocardial infarction; Z95.5 Presence of coronary angioplasty implant and graft; E87.6 Hypokalemia; R77.8 Other specified abnormalities of plasma proteins; I25.10 Atherosclerotic heart disease of native coronary artery without angina pectoris; Z95.810 Presence of automatic (implantable) cardiac defibrillator; Z79.02 Long term (current) use of antithrombotics/antiplatelets; Z79.01 Long term (current) use of anticoagulants; Z86.73 Personal history of transient ischemic attack (TIA), and cerebral infarction without residual deficits; I45.10 Unspecified right bundle-branch block; Z85.038 Personal history of other malignant neoplasm of large intestine; Z90.49 Acquired absence of other specified parts of digestive tract; Z92.21 Personal history of antineoplastic chemotherapy; I25.5 Ischemic cardiomyopathy; E83.42 Hypomagnesemia; R19.7 Diarrhea, unspecified; E78.5 Hyperlipidemia, unspecified; N18.9 Chronic kidney disease, unspecified; Z79.899 Other long term (current) drug therapy; Z86.79 Personal history of other diseases of the circulatory system
CPT/HCPCS: 36415; 71045; 71046; 80048; 80053; 81001; 83735; 84132; 84484; 85025; 85610; 85730; 87086; 93005; 93308; 96361; 96365; 96366; 96368; 96375; 99291

== ENCOUNTER 2021-05-07 13:15 | Inpatient (IN) | payer MEDICARE ==
[2021-05-07] MEDS ORDERED: MECLIZINE 25 MG TAB PO STA (13:41)
--- NOTE | 2021-05-07 13:45 | ED ---
General Adult HPI - General Chief complaint: Syncope Stated complaint: Syncope Time Seen by Provider: 05/07/21 13:25 Source: patient, RN notes reviewed, old records reviewed Mode of arrival: EMS Limitations: no limitations - History of Present Illness Initial comments: This is a 75-year-old female presents emergency Department stating that she felt dizzy today. Patient states when she moved her head things seemed kind of floating in front of her visit she was on a ship. Patient states she became nauseated but did not vomit. Patient denies any headache patient denies any numbness or weakness. Patient any palpitations. Patient denies any chest pain difficulty breathing shortness of breath. Patient denies any recent fever chills or cough. Patient denies any change in her hearing or any ringing in the ears. Patient denies abdominal pain. Patient states she's never had anything like this before. Patient was recently in the hospital for cardiac arrest had a few medication changes and was sent home. - Related Data Home Medications Medication Instructions Recorded Confirmed Bimatoprost [Lumigan .01% Ophth 1 drop LEFT EYE HS 02/27/21 04/12/21 Soln] Brimonidine Tartrate/Timolol 1 drop LEFT EYE BID 02/27/21 04/12/21 [Combigan 0.2%-0.5% Eye Drops] Loperamide [Imodium] 2 mg PO QID PRN 02/27/21 04/12/21 Loteprednol Etabonate [Inveltys] 1 drop RIGHT EYE DAILY 02/27/21 04/12/21 Melatonin 3 mg PO HS PRN 02/27/21 04/12/21 Pantoprazole Sodium [Protonix] 40 mg PO DAILY 02/27/21 04/12/21 Pravastatin Sodium [Pravachol] 80 mg PO HS 02/27/21 04/12/21 Ticagrelor [Brilinta] 90 mg PO BID 02/27/21 04/12/21 Apixaban [Eliquis] 5 mg PO BID 04/03/21 04/12/21 Previous Rx's Medication Instructions Recorded Sacubitril/Valsartan [Entresto 24 1 each PO BID 30 Days #60 tablet 04/16/21 mg-26 mg Tablet] Amiodarone [Cordarone] 400 mg PO BID #120 tab 04/19/21 Potassium Chloride ER [K-Dur 20] 20 meq PO DAILY 20 Days #20 04/19/21 tab.er.prt Spironolactone [Aldactone] 50 mg PO DAILY 30 Days #60 tab 04/19/21 carvediloL [Coreg*] 12.5 mg PO BID-W/MEALS 30 Days #60 04/19/21 tab Magnesium Oxide [Mag-Ox] 400 mg PO BID 30 Days #60 tablet 04/20/21 Prochlorperazine [Compazine] 5 mg PO Q6HR PRN 2 Days #8 tab 04/20/21 Allergies Allergy/AdvReac Type Severity Reaction Status Date / Time morphine AdvReac Nausea & Verified 05/07/21 13:25 Vomiting Review of Systems ROS Statement: Those systems with pertinent positive or pertinent negative responses have been documented in the HPI. ROS Other: All systems not noted in ROS Statement are negative. Past Medical History Past Medical History: Atrial Fibrillation, Cancer, Chest Pain / Angina, Heart Failure, Myocardial Infarction (VT) Additional Past Medical History / Comment(s): heart cath with stents, Cardiomyopathy, Colon cancer. treatment stopped overa month ago, AICD/ pace maker placed in march 19, cva with clot in february, transferred to [facility] for clot retrieval, Last Myocardial Infarction Date:: 11/2020 History of Any Multi-Drug Resistant Organisms: None Reported Past Surgical History: Heart Catheterization, Heart Catheterization With Stent Additional Past Surgical History / Comment(s): CHOLECYSTECTOMY 10/2016, GLAUCOMA, CATARACTS SURG RIGHT EYE 12/13/20 Past Anesthesia/Blood Transfusion Reactions: Postoperative Nausea & Vomiting (PONV) Date of Last Stent Placement:: 12/13/2020 2 STENTS PLACED "FRONT". Past Psychological History: No Psychological Hx Reported Smoking Status: Never smoker Past Alcohol Use History: Occasional Past Drug Use History: None Reported General Exam - General Exam Comments Initial Comments: GENERAL: Patient is well-developed and well-nourished. Patient is nontoxic and well- hydrated and is in mild distress. ENT: Neck is soft and supple. No significant lymphadenopathy is noted. Oropharynx is clear. Moist mucous membranes. Neck has full range of motion without eliciting any pain. EYES: The sclera were anicteric and conjunctiva were pink and moist. Extraocular movements were intact and pupils were equal round and reactive to light. Eyelids were unremarkable. PULMONARY: Unlabored respirations. Good breath sounds bilaterally. No audible rales rhonchi or wheezing was noted. CARDIOVASCULAR: There is a regular rate and rhythm without any murmurs gallops or rubs. ABDOMEN: Soft and nontender with normal bowel sounds. SKIN: Skin is clear with no lesions or rashes and otherwise unremarkable. NEUROLOGIC: Patient is alert and oriented x3. Cranial nerves II through XII are grossly intact. Motor and sensory are also intact. Normal speech, volume and content. Symmetrical smile. Finger to nose testing is normal bilaterally MUSCULOSKELETAL: Normal extremities with adequate strength and full range of motion. LYMPHATICS: No significant lymphadenopathy is noted PSYCHIATRIC: Normal psychiatric evaluation. Limitations: no limitations Course Vital Signs 05/07/21 05/07/21 05/07/21 13:22 13:39 13:56 Temperature 98.6 F Pulse Rate 60 Pulse Rate [ 60 72 Structural Engineering Technician ] Respiratory 20 Rate Blood Pressure 119/52 Blood Pressure 125/71 [Sitting] Blood Pressure 125/60 [Supine] O2 Sat by Pulse 99 Oximetry 05/07/21 14:41 Temperature Pulse Rate 58 L Pulse Rate [ Structural Engineering Technician ] Respiratory 20 Rate Blood Pressure 108/53 Blood Pressure [Sitting] Blood Pressure [Supine] O2 Sat by Pulse 100 Oximetry Medical Decision Making - Medical Decision Making EKG shows sinus rhythm at 60 bpm CO interval is 214 QRS is 156 QT intervals 532 QTC is 532. Patient's EKG shows a right bundle akhil block. Patient's hemoglobin dropped from 10.5-8.0. Patient was given Antivert in the emergency department she stated that it did help her symptoms a little. I spoke with Dr. Walker he agreed to admit the patient admitted the patient I wrote admitting orders - Lab Data Result diagrams: 05/07/21 13:47 05/07/21 13:47 Lab Results 05/07/21 05/07/21 05/07/21 Range/Units 13:47 13:47 13:47 WBC 7.8 (3.8-10.6) k/uL RBC 2.69 L (3.80-5.40) m/uL Hgb 8.0 L D (11.4-16.0) gm/dL Hct 25.1 L (34.0-46.0) % MCV 93.2 (80.0-100.0) fL MCH 29.9 (25.0-35.0) pg MCHC 32.1 (31.0-37.0) g/dL RDW 16.7 H (11.5-15.5) % Plt Count 230 (150-450) k/uL MPV 8.5 Neutrophils % 88 % Lymphocytes % 6 % Monocytes % 4 % Eosinophils % 1 % Basophils % 0 % Neutrophils # 6.8 (1.3-7.7) k/uL Lymphocytes # 0.4 L (1.0-4.8) k/uL Monocytes # 0.3 (0-1.0) k/uL Eosinophils # 0.1 (0-0.7) k/uL Basophils # 0.0 (0-0.2) k/uL Anisocytosis Slight PT 12.4 H (9.0-12.0) sec INR 1.2 H (<1.2) APTT 22.5 (22.0-30.0) sec Sodium 132 L (137-145) mmol/L Potassium 4.4 (3.5-5.1) mmol/L Chloride 105 (98-107) mmol/L Carbon Dioxide 19 L (22-30) mmol/L Anion Gap 8 mmol/L BUN 21 H (7-17) mg/dL Creatinine 1.02 (0.52-1.04) mg/dL Est GFR (CKD-EPI)AfAm 62 (>60 ml/min/1.73 sqM) Est GFR (CKD-EPI)NonAf 54 (>60 ml/min/1.73 sqM) Glucose 117 H (74-99) mg/dL Calcium 8.8 (8.4-10.2) mg/dL Magnesium 2.1 (1.6-2.3) mg/dL Total Bilirubin 0.5 (0.2-1.3) mg/dL AST 29 (14-36) U/L ALT 18 (4-34) U/L Alkaline Phosphatase 50 (38-126) U/L Troponin I (0.000-0.034) ng/mL Total Protein 5.6 L (6.3-8.2) g/dL Albumin 3.2 L (3.5-5.0) g/dL 05/07/21 Range/Units 13:47 WBC (3.8-10.6) k/uL RBC (3.80-5.40) m/uL Hgb (11.4-16.0) gm/dL Hct (34.0-46.0) % MCV (80.0-100.0) fL MCH (25.0-35.0) pg MCHC (31.0-37.0) g/dL RDW (11.5-15.5) % Plt Count (150-450) k/uL MPV Neutrophils % % Lymphocytes % % Monocytes % % Eosinophils % % Basophils % % Neutrophils # (1.3-7.7) k/uL Lymphocytes # (1.0-4.8) k/uL Monocytes # (0-1.0) k/uL Eosinophils # (0-0.7) k/uL Basophils # (0-0.2) k/uL Anisocytosis PT (9.0-12.0) sec INR (<1.2) APTT (22.0-30.0) sec Sodium (137-145) mmol/L Potassium (3.5-5.1) mmol/L Chloride (98-107) mmol/L Carbon Dioxide (22-30) mmol/L Anion Gap mmol/L BUN (7-17) mg/dL Creatinine (0.52-1.04) mg/dL Est GFR (CKD-EPI)AfAm (>60 ml/min/1.73 sqM) Est GFR (CKD-EPI)NonAf (>60 ml/min/1.73 sqM) Glucose (74-99) mg/dL Calcium (8.4-10.2) mg/dL Magnesium (1.6-2.3) mg/dL Total Bilirubin (0.2-1.3) mg/dL AST (14-36) U/L ALT (4-34) U/L Alkaline Phosphatase (38-126) U/L Troponin I 0.024 (0.000-0.034) ng/mL Total Protein (6.3-8.2) g/dL Albumin (3.5-5.0) g/dL Disposition Clinical Impression: Anemia, Vertigo Disposition: ADMITTED IP TO THIS [facility] Referrals: Crystal Cifuentes MD [Primary Care Provider] - 1-2 days Time of Disposition: 15:33
[2021-05-07 14:09] LABS: INR 1.2 (<1.2); Partial Thromboplastin Time 22.5 sec (22.0-30.0); Prothrombin Time 12.4 sec (9.0-12.0)
[2021-05-07 14:11] LABS: Albumin 3.2 g/dL (3.5-5.0); Calcium 8.8 mg/dL (8.4-10.2); Magnesium 2.1 mg/dL (1.6-2.3); Potassium 4.4 mmol/L (3.5-5.1); Total Bilirubin 0.5 mg/dL (0.2-1.3); Total Protein 5.6 g/dL (6.3-8.2)
[2021-05-07 14:29] LABS: Anisocytosis Slight; Basophils % (A) 0 %; Eosinophils # (A) 0.1 k/uL (0-0.7); Eosinophils % (A) 1 %; HCT 25.1 % (34.0-46.0); Lymphocytes # (A) 0.4 k/uL (1.0-4.8); Lymphocytes % (A) 6 %; MCH 29.9 pg (25.0-35.0); MCHC 32.1 g/dL (31.0-37.0); MCV 93.2 fL (80.0-100.0); Mean Platelet Volume 8.5; Monocytes # (A) 0.3 k/uL (0-1.0); Monocytes % (A) 4 %; Neutrophils # (A) 6.8 k/uL (1.3-7.7); Neutrophils % (A) 88 %; Platelet Count 230 k/uL (150-450); RBC 2.69 m/uL (3.80-5.40); RDW 16.7 % (11.5-15.5); WBC 7.8 k/uL (3.8-10.6)
--- NOTE | 2021-05-07 14:46 | CT ---
EXAMINATION TYPE: CT brain wo con DATE OF EXAM: 05/07/2021 COMPARISON: 03/03/2021 HISTORY: dizzizness CT DLP: 1023.4 mGycm Automated exposure control for dose reduction was used. FINDINGS: Mild generalized degenerative change with low attenuation in the white matter which is nonspecific. N o evidence of midline shift or mass effect. No acute hemorrhage. Intracranial calcifications are noted. Atherosclerotic change is seen. Orbits are symmetric. Craniocervical junction maintained. Calvarium intact. Metallic density overlyin g the right orbit could be related to foreign body or possibly calcification correlate clinically. IMPRESSION: NO ACUTE HEMORRHAGE OR MASS EFFECT. DEGENERATIVE AND NONSPECIFIC WHITE MATTER CHANGES.
--- NOTE | 2021-05-07 14:54 | XR ---
EXAMINATION TYPE: XR chest 2V DATE OF EXAM: 05/07/2021 COMPARISON: 04/15/2021 HISTORY: 75-year-old female with chest pain TECHNIQUE: AP and lateral views FINDINGS: Left anterior chest wall AICD generator with right ventricular lead. Right anterior chest wall with c atheter tip in the upper right atrium. Heart upper limits of normal in size. Some surgical clips proj ect at the left apex. Focal eventration right hemidiaphragm redemonstrated. No consolidation or pleur al effusion. IMPRESSION: Stable exam. No acute process seen.
[2021-05-07] MEDS ORDERED: SODIUM CHLORIDE 0.9% 1,000 ML IV ONE (15:33)
[2021-05-07] MEDS ORDERED: MECLIZINE 25 MG TAB PO PRN (15:36)
[2021-05-07 16:13] LABS: Anisocytosis Slight; Basophils % (A) 0 %; Eosinophils # (A) 0.1 k/uL (0-0.7); Eosinophils % (A) 1 %; Lymphocytes # (A) 0.4 k/uL (1.0-4.8); Lymphocytes % (A) 5 %; MCH 30.8 pg (25.0-35.0); MCHC 33.5 g/dL (31.0-37.0); MCV 91.8 fL (80.0-100.0); Mean Platelet Volume 8.8; Monocytes # (A) 0.4 k/uL (0-1.0); Monocytes % (A) 5 %; Neutrophils # (A) 6.6 k/uL (1.3-7.7); Neutrophils % (A) 87 %; Platelet Count 221 k/uL (150-450); RBC 2.61 m/uL (3.80-5.40); RDW 16.7 % (11.5-15.5); WBC 7.6 k/uL (3.8-10.6)
[2021-05-07] MEDS: TICAGRELOR 90 MG TAB PO SCH (22:00)
[2021-05-07] MEDS: AMIODARONE 200 MG TAB PO SCH (22:00)
[2021-05-07] MEDS: SACUBITRIL/VALSARTAN 24 MG-26 MG TABLET PO SCH (22:01)
[2021-05-07] MEDS: PRAVASTATIN SODIUM 80 MG TAB PO SCH (22:01)
[2021-05-07] MEDS: prednisoLONE ACETATE 1% OPHTH DROPS 5 ML BTL RIGHT EYE SCH (22:03)
[2021-05-07] MEDS: LATANOPROST 0.005% OPHTH DROPS 2.5 ML BTL LEFT EYE SCH (22:03)
[2021-05-07] MEDS: BRIMONIDINE TARTRATE 0.2% DROPS 5 ML BTL LEFT EYE SCH (22:03)
[2021-05-07] MEDS: MAGNESIUM OXIDE 400 MG TAB PO SCH (22:24)
[2021-05-07] MEDS: APIXABAN 5 MG TAB PO SCH (22:24)
[2021-05-08] MEDS: carvediloL 12.5 MG TAB PO SCH ×2 (08:05→17:58)
[2021-05-08] MEDS: TICAGRELOR 90 MG TAB PO SCH ×2 (08:05→20:39)
[2021-05-08] MEDS: PANTOPRAZOLE 40 MG TABLET PO SCH (08:05)
[2021-05-08] MEDS: SPIRONOLACTONE 25 MG TAB PO SCH (08:05)
[2021-05-08] MEDS: SACUBITRIL/VALSARTAN 24 MG-26 MG TABLET PO SCH ×2 (08:05→20:39)
[2021-05-08] MEDS: AMIODARONE 200 MG TAB PO SCH ×2 (08:05→20:39)
[2021-05-08] MEDS: APIXABAN 5 MG TAB PO SCH ×2 (08:05→20:39)
[2021-05-08] MEDS: POTASSIUM CHLORIDE ER 20 MEQ TAB.ER PO SCH (08:06)
[2021-05-08] MEDS: MAGNESIUM OXIDE 400 MG TAB PO SCH ×2 (08:06→20:39)
[2021-05-08] MEDS: BRIMONIDINE TARTRATE 0.2% DROPS 5 ML BTL LEFT EYE SCH ×3 (08:12→20:49)
[2021-05-08] MEDS: TIMOLOL 0.5% OPHTH DROPS 5 ML BTL LEFT EYE SCH ×3 (08:12→20:48)
[2021-05-08] MEDS: prednisoLONE ACETATE 1% OPHTH DROPS 5 ML BTL RIGHT EYE SCH (08:12)
[2021-05-08 12:19] LABS: Reticulocyte % 3.6 % (0.5-2.0)
--- NOTE | 2021-05-08 12:56 | P.HPIM ---
History of Present Illness H&P Date: 05/08/21 Hernan Contreras, is a 75-year-old female presented to [facility] emergency room with a chief complaint of dizziness, patient stated that she went to have a blood test at Dr. Cifuentes's office when she returned home she was feeling very dizzy and she fell down to her knees, she was helped to a chair by her family, she continued to feel dizzy, she describes her head floating in front of her, she describes difficulty looking to the sides due to feeling dizzy and feeling nauseated . She was evaluated in the emergency room, vital examination on presentation revealed a temperature of 98.6 pulse 60 respiration 20 blood pressure 119/52 pulse ox 99% on room air. Laboratory data in the emergency room revealed a white blood count of 7.8 hemoglobin 8.0 and a platelet count of 2:30 sodium 132 potassium 4.4 chloride 105 CO2 19 BUN 21 creatinine 1.02 troponin level 0.024 testing in the emergency room included an EKG that revealed a sinus rhythm with first-degree AV block and right bundle branch block and T-wave abnormality in the inferior leads chest x-ray revealed no acute abnormality, computed tomography scan of the brain revealed no acute hemorrhage or mass affect. Patient was admitted to telemetry floor for further evaluation, carotid Doppler was ordered, cardiology consultation was requested, gastroenterology consultation was requested in regard to anemia. Patient was recently admitted to [facility] after having a cardiac arrest and having her defibrillator firing, at that time she was having hypokalemia, patient has a known history of acute systolic congestive heart failure with ejection fraction of 25-30% she has underlying history of ventricular tachycardia and had an AICD placed in February 2021, she has a history of coronary artery disease with recent angioplasty and stent placement, she has a history of hypertension, hyperlipidemia, and a previous history of colon cancer. Past Medical History Past Medical History: Atrial Fibrillation, Cancer, Chest Pain / Angina, Heart Failure, Myocardial Infarction ([place]) Additional Past Medical History / Comment(s): heart cath with stents, Cardiomyopathy, Colon cancer. treatment stopped overa month ago, AICD/ pace maker placed in march 19, cva with clot in february, transferred to [facility] for clot retrieval, Last Myocardial Infarction Date:: 11/2020 History of Any Multi-Drug Resistant Organisms: None Reported Past Surgical History: Heart Catheterization, Heart Catheterization With Stent Additional Past Surgical History / Comment(s): CHOLECYSTECTOMY 10/2016, GLAUCOMA, CATARACTS SURG RIGHT EYE 12/13/20 Past Anesthesia/Blood Transfusion Reactions: Postoperative Nausea & Vomiting (PONV) Date of Last Stent Placement:: 12/13/2020 2 STENTS PLACED "FRONT". Past Psychological History: No Psychological Hx Reported Smoking Status: Never smoker Past Alcohol Use History: Occasional Past Drug Use History: None Reported Medications and Allergies Home Medications Medication Instructions Recorded Confirmed Type Bimatoprost [Lumigan .01% Ophth 1 drop LEFT EYE HS 02/27/21 05/07/21 History Soln] Brimonidine Tartrate/Timolol 1 drop LEFT EYE BID 02/27/21 05/07/21 History [Combigan 0.2%-0.5% Eye Drops] Loteprednol Etabonate [Inveltys] 1 drop RIGHT EYE DAILY 02/27/21 05/07/21 History Pantoprazole Sodium [Protonix] 40 mg PO DAILY 02/27/21 05/07/21 History Pravastatin Sodium [Pravachol] 80 mg PO HS 02/27/21 05/07/21 History Ticagrelor [Brilinta] 90 mg PO BID 02/27/21 05/07/21 History Apixaban [Eliquis] 5 mg PO BID 04/03/21 05/07/21 History Potassium Chloride ER [K-Dur 20] 20 meq PO DAILY 20 Days #20 04/19/21 05/07/21 Rx tab.er.prt Spironolactone [Aldactone] 50 mg PO DAILY 30 Days #60 tab 04/19/21 05/07/21 Rx carvediloL [Coreg*] 12.5 mg PO BID-W/MEALS 30 Days #60 04/19/21 05/07/21 Rx tab Magnesium Oxide [Mag-Ox] 400 mg PO BID 30 Days #60 tablet 04/20/21 05/07/21 Rx Prochlorperazine [Compazine] 5 mg PO Q6HR PRN 2 Days #8 tab 04/20/21 05/07/21 Rx Sacubitril/Valsartan [Entresto 24 1 tab PO BID 05/07/21 05/07/21 History mg-26 mg Tablet] Amiodarone [Cordarone] 200 mg PO BID tab 05/08/21 Rx Allergies Allergy/AdvReac Type Severity Reaction Status Date / Time morphine AdvReac Nausea & Verified 05/07/21 16:05 Vomiting Physical Exam Vitals: Vital Signs Temp Pulse Pulse Pulse Pulse Pulse Resp 05/08/21 07:00 98.0 F 60 16 05/08/21 01:54 98.3 F 60 17 05/07/21 22:00 72 73 66 05/07/21 20:00 65 17 05/07/21 19:56 98.3 F 65 17 05/07/21 18:18 98.3 F 61 20 05/07/21 17:03 63 20 05/07/21 14:41 58 L 20 05/07/21 13:56 72 05/07/21 13:39 60 05/07/21 13:22 98.6 F 60 20 BP BP BP BP Pulse Ox 05/08/21 07:00 99/62 100 05/08/21 01:54 100/59 97 05/07/21 22:00 124/70 114/49 126/68 05/07/21 20:00 05/07/21 19:56 113/69 100 05/07/21 18:18 118/50 100 05/07/21 17:03 121/53 100 05/07/21 14:41 108/53 100 05/07/21 13:56 125/71 125/60 05/07/21 13:39 05/07/21 13:22 119/52 99 Intake and Output 05/07/21 05/08/21 05/08/21 22:59 06:59 14:59 Other: Voiding Method Bedside Commode # Voids 1 2 Weight 58.513 kg In general patient is alert and oriented x 3 in no distress HEENT head normocephalic and atraumatic Neck is supple no JVD no goiter no lymphadenopathy no carotid bruit Chest examination is clear to auscultation no crackles no wheezing Cardiac exam reveals regular heart sounds S1 and S2 no gallops no murmurs Abdomen is soft nontender no organomegaly with normal bowel sounds Extremity exam reveals no edema no cyanosis or clubbing Neurological examination reveals no gross focal deficits Results CBC & Chem 7: 05/07/21 16:05 05/07/21 13:47 Labs: Abnormal Lab Results - Last 24 Hours (Table) 05/07/21 05/07/21 05/07/21 Range/Units 13:47 13:47 13:47 RBC 2.69 L (3.80-5.40) m/uL Hgb 8.0 L D (11.4-16.0) gm/dL Hct 25.1 L (34.0-46.0) % RDW 16.7 H (11.5-15.5) % Lymphocytes # 0.4 L (1.0-4.8) k/uL PT 12.4 H (9.0-12.0) sec INR 1.2 H (<1.2) Sodium 132 L (137-145) mmol/L Carbon Dioxide 19 L (22-30) mmol/L BUN 21 H (7-17) mg/dL Glucose 117 H (74-99) mg/dL Total Protein 5.6 L (6.3-8.2) g/dL Albumin 3.2 L (3.5-5.0) g/dL 05/07/21 Range/Units 16:05 RBC 2.61 L (3.80-5.40) m/uL Hgb 8.0 L (11.4-16.0) gm/dL Hct 24.0 L (34.0-46.0) % RDW 16.7 H (11.5-15.5) % Lymphocytes # 0.4 L (1.0-4.8) k/uL PT (9.0-12.0) sec INR (<1.2) Sodium (137-145) mmol/L Carbon Dioxide (22-30) mmol/L BUN (7-17) mg/dL Glucose (74-99) mg/dL Total Protein (6.3-8.2) g/dL Albumin (3.5-5.0) g/dL Thrombosis Risk Factor Assmnt - Choose All That Apply Any of the Below Risk Factors Present?: No Other Risk Factors: Yes Each Risk Factor Represents 3 Points: Age 75 years or older Other congenital or acquired thrombophilia - If yes, enter type in comment: No Thrombosis Risk Factor Assessment Total Risk Factor Score: 3 Thrombosis Risk Factor Assessment Level: Moderate Risk Assessment and Plan Plan: 1. Dizziness and lightheadedness, cause is unclear could be related to inner ear vertigo, Antivert was ordered, will check carotid Doppler 2. Episode of presyncope with falling down to her knees at home prior to presentation 3. Anemia hemoglobin down to 8.0 her hemoglobin was 10.5 on 04/20/2021 patient is maintained on Eliquis and Brillinta, gastroenterology consultation was requested stool Hemoccult was ordered Will check iron profile, vitamin B12 and folate levels and replace if needed 4. Underlying history of coronary artery disease, EKG is abnormal and first troponin level is slightly elevated, will check troponin again, cardiology consult was requested 5. Underlying history of cardiomyopathy with ejection fraction of 25-30% 6. Hypotension which may be contributing to patient feeling of dizziness cardiology consultation was requested to reevaluate cardiac medications 7. Underlying history of hyperlipidemia maintained on Pravachol 80 mg once daily Home medications reviewed and reordered Cardiology and gastroenterology consultation requested Carotid Doppler were ordered Echocardiogram was done recently, no need to repeat at this time Will follow closely
--- NOTE | 2021-05-08 13:51 | P.CRDCN ---
History of Present Illness History of present illness: This is a pleasant 75-year-old female past medical history significant for coronary artery disease status post PCI proximal LAD and mid LAD 11/2020, ischemic cardiomyopathy status post AICD placement in 02/2021, dyslipidemia, hypertension, CVA. She follows in the office with Dr. Nice. We have been asked to see in consultation for dizziness. Patient states that over the past 4 days she has been having episodes of dizziness when she rotates her neck and terns her head from side to side. When she does this she states it looks "fuzzy" and she cant see clearly. She denies room spinning sensation. If she is looking straight ahead she has no symptoms. Yesterday in particular she had another episode of dizziness, felt lightheaded and did fall to her knees. She denies loss of consciousness. She recently followed up with Dr. Nice on 04/26 and her amiodarone was decreased to 200mg BID from 400mg and she was restarted on her spironolactone. She has been feeling fine since then. She denies any weakness, headache, chest pain, shortness of breath, palpitations, nausea, vomiting, diar [place], denies blood in urine or stool, denies dark bowel movements. She endorses having a decreased appetite. Patient was ecently admitted on 04/03/2021 with complaints of lightheadedness and presyncope. She was found to be hypokalemic. Cardiology was consulted due to cardiac arrest near-syncope. At that time patient was taken to x-ray and she went unresponsive, she had agonal breathing, she had no pulse. CPR was begun at that time. Her ICD went off and her pulses returned. Patient did not remember this event. Patient was started on amiodarone drip. Reviewing her device check- She did have an Episode of VF/VT and received an ICD shock. She also was having very frequent runs of nonsustained ventricular tachycardia and nonsustained ventricular fibrillation Patient's VF/VT was attributed to her severe hypokalemia. Dr. Upton evaluated the patient, and recommended aldactone, avoid overdiuresis, and mexiletine. However, patient could not tolerate mexiletine due to nausea and vomiting. Patient was also started on Entresto. She was also admitted in 02/2021 due to diarrhea and hypokalemia was also discharged on LifeVest. She had recurrent ventricular tachycardia requiring shocks and subsequently received an ICD. On the following day patient had symptoms of CVA with the middle cerebral artery occlusion which is clearly embolic, received TPA and was transported [facility]. She started anticoagulation Eliquis and Brilinta. While she was inpatient at [facility] there is no documentations of atrial fibrillation during her hospital stay and her echocardiogram showed a severely impaired systolic function no evidence of apical thrombus. She is unsure of her carotid ultrasound results. DIAGNOSTICS EKG reveals sinus rhythm, heart rate 60, left axis deviation, right bundle branch block with T wave inversions in precordial leads. Prior EKG appears similar Chest xray No acute cardiopulmonary process CT brain- no acute intracranial process Laboratory reviewed, WBC 7.8, hemoglobin 8.0, platelets 2:30, sodium 132, potassium 4.4, BUN 21, serum creatinine 1.02, magnesium 2.1, troponin negative 1 Current home cardiac medications include amiodarone 200 mg twice daily, Eliquis 5 mg twice daily, potassium chloride 20 mEq daily, and Entresto 24 mg-26 mg t wice a day, spironolactone 50 mg daily, Brilinta 90 mg twice a day, magnesium oxide 400 mg twice day, carvedilol 12.5 mg twice a day, pravastatin 80 mg daily Most recent limited echocardiogram 04/13/2021 revealed an EF 25-30%, mild MR REVIEW OF SYSTEMS At the time of my exam: CONSTITUTIONAL: Denies fever or chills. CARDIOVASCULAR: Denies chest pain, shortness of breath, orthopnea, PND or palpitations. RESPIRATORY: Denies cough. GASTROINTESTINAL: Denies abdominal pain, diarrhea, constipation, nausea or vomiting. MUSCULOSKELETAL: Denies myalgias. NEUROLOGIC: +dizziness, Denies numbness, tingling, headacbe or weakness. ENDOCRINE: Denies fatigue, weight change, polydipsia or polyurina. GENITOURINARY: Denies burning, hematuria or urgency with micturation. HEMATOLOGIC: Denies history of anemia or bleeding. PHYSICAL EXAMINATION Blood pressure 99/62 heart rate 60 afebrile and maintaining oxygen saturation 100% on room air CONSTITUTIONAL: No apparent distress. HEENT: Head is normocephalic. Pupils are equal, round. Sclerae anicteric. Mucous membranes of the mouth are moist. No JVD. No carotid bruit. CHEST EXAMINATION: Lungs are clear to auscultation. HEART EXAMINATION: Regular rate and rhythm. S1, S2 heard. Systolic murmur at apex ABDOMEN: Soft, nontender. Positive bowel sounds. EXTREMITIES: 2+ peripheral pulses, no lower extremity edema and no calf tenderness. NEUROLOGIC EXAMINATION: Patient is awake, alert and oriented x3. ASSESSMENT Dizziness, Lightheadedness Coronary artery disease status post PCI proximal LAD and mid LAD 11/2020 Ischemic cardiomyopathy status post single chamber AICD placement in 02/[address] Thomas History of nonsustained fast VT and nonsustained ventricular fibrillation with ICD shock in March 2021 Congestive systolic heart failure Dyslipidemia Hypertension CVA in February 2021 PLAN Patient's symptoms appear to be more vertigo in nature rather than a cardiac etiology Continue cardiac telemetry for additional 24 hours Orthostatic vital signs Continue home cardiac medications Carotid Doppler ordered by primary- which is pending Further recommendations pending clinical course Nurse Practitioner note has been reviewed, I agree with a documented findings and plan of care. Patient was seen and examined. Past Medical History Past Medical History: Atrial Fibrillation, Cancer, Chest Pain / Angina, Heart Failure, Myocardial Infarction ([place]) Additional Past Medical History / Comment(s): heart cath with stents, Cardiomyopathy, Colon cancer. treatment stopped overa month ago, AICD/ pace maker placed in march 19, cva with clot in february, transferred to [facility] clot retrieval, Last Myocardial Infarction Date:: 11/2020 History of Any Multi-Drug Resistant Organisms: None Reported Past Surgical History: Heart Catheterization, Heart Catheterization With Stent Additional Past Surgical History / Comment(s): CHOLECYSTECTOMY 10/2016, GLAUCOMA, CATARACTS SURG RIGHT EYE 12/13/20 Past Anesthesia/Blood Transfusion Reactions: Postoperative Nausea & Vomiting (PONV) Date of Last Stent Placement:: 12/13/2020 2 STENTS PLACED "FRONT". Past Psychological History: No Psychological Hx Reported Smoking Status: Never smoker Past Alcohol Use History: Occasional Past Drug Use History: None Reported Medications and Allergies Home Medications Medication Instructions Recorded Confirmed Type Bimatoprost [Lumigan .01% Ophth 1 drop LEFT EYE HS 02/27/21 05/07/21 History Soln] Brimonidine Tartrate/Timolol 1 drop LEFT EYE BID 02/27/21 05/07/21 History [Combigan 0.2%-0.5% Eye Drops] Loteprednol Etabonate [Inveltys] 1 drop RIGHT EYE DAILY 02/27/21 05/07/21 History Pantoprazole Sodium [Protonix] 40 mg PO DAILY 02/27/21 05/07/21 History Pravastatin Sodium [Pravachol] 80 mg PO HS 02/27/21 05/07/21 History Ticagrelor [Brilinta] 90 mg PO BID 02/27/21 05/07/21 History Apixaban [Eliquis] 5 mg PO BID 04/03/21 05/07/21 History Potassium Chloride ER [K-Dur 20] 20 meq PO DAILY 20 Days #20 04/19/21 05/07/21 Rx tab.er.prt Spironolactone [Aldactone] 50 mg PO DAILY 30 Days #60 tab 04/19/21 05/07/21 Rx carvediloL [Coreg*] 12.5 mg PO BID-W/MEALS 30 Days #60 04/19/21 05/07/21 Rx tab Magnesium Oxide [Mag-Ox] 400 mg PO BID 30 Days #60 tablet 04/20/21 05/07/21 Rx Prochlorperazine [Compazine] 5 mg PO Q6HR PRN 2 Days #8 tab 04/20/21 05/07/21 Rx Sacubitril/Valsartan [Entresto 24 1 tab PO BID 05/07/21 05/07/21 History mg-26 mg Tablet] Amiodarone [Cordarone] 200 mg PO BID tab 05/08/21 Rx Allergies Allergy/AdvReac Type Severity Reaction Status Date / Time morphine AdvReac Nausea & Verified 05/07/21 16:05 Vomiting Physical Exam Vitals: Vital Signs Temp Pulse Pulse Pulse Pulse Pulse Resp 05/08/21 07:00 98.0 F 60 16 05/08/21 01:54 98.3 F 60 17 05/07/21 22:00 72 73 66 05/07/21 20:00 65 17 05/07/21 19:56 98.3 F 65 17 05/07/21 18:18 98.3 F 61 20 05/07/21 17:03 63 20 05/07/21 14:41 58 L 20 05/07/21 13:56 72 05/07/21 13:39 60 05/07/21 13:22 98.6 F 60 20 BP BP BP BP Pulse Ox 05/08/21 07:00 99/62 100 05/08/21 01:54 100/59 97 05/07/21 22:00 124/70 114/49 126/68 05/07/21 20:00 05/07/21 19:56 113/69 100 05/07/21 18:18 118/50 100 05/07/21 17:03 121/53 100 05/07/21 14:41 108/53 100 05/07/21 13:56 125/71 125/60 05/07/21 13:39 05/07/21 13:22 119/52 99 Intake and Output 05/07/21 05/08/21 05/08/21 22:59 06:59 14:59 Other: Voiding Method Bedside Commode # Voids 1 2 Weight 58.513 kg Results 05/07/21 16:05 05/07/21 13:47 Cardiac Enzymes 05/07/21 05/07/21 Range/Units 13:47 13:47 AST 29 (14-36) U/L Troponin I 0.024 (0.000-0.034) ng/mL Coagulation 05/07/21 Range/Units 13:47 PT 12.4 H (9.0-12.0) sec APTT 22.5 (22.0-30.0) sec CBC 05/07/21 05/07/21 Range/Units 13:47 16:05 WBC 7.8 7.6 (3.8-10.6) k/uL RBC 2.69 L 2.61 L (3.80-5.40) m/uL Hgb 8.0 L D 8.0 L (11.4-16.0) gm/dL Hct 25.1 L 24.0 L (34.0-46.0) % Plt Count 230 221 (150-450) k/uL Comprehensive Metabolic Panel 05/07/21 Range/Units 13:47 Sodium 132 L (137-145) mmol/L Potassium 4.4 (3.5-5.1) mmol/L Chloride 105 (98-107) mmol/L Carbon Dioxide 19 L (22-30) mmol/L BUN 21 H (7-17) mg/dL Creatinine 1.02 (0.52-1.04) mg/dL Glucose 117 H (74-99) mg/dL Calcium 8.8 (8.4-10.2) mg/dL AST 29 (14-36) U/L ALT 18 (4-34) U/L Alkaline Phosphatase 50 (38-126) U/L Total Protein 5.6 L (6.3-8.2) g/dL Albumin 3.2 L (3.5-5.0) g/dL Current Medications Generic Name Dose Route Start Last Admin Trade Name Freq PRN Reason Stop Dose Admin Amiodarone HCl 400 mg 05/07/21 21:00 05/08/21 08:05 Amiodarone 200 Mg Tab PO 400 mg BID SPRING Administration Apixaban 5 mg 05/07/21 21:00 05/08/21 08:05 Apixaban 5 Mg Tab PO 5 mg BID [place] Administration Protocol Brimonidine Tartrate 1 drops 05/07/21 21:00 05/08/21 08:12 Brimonidine Tartrate 0.2% Drops 5 Ml Btl LEFT EYE 1 drops BID [place] Administration Carvedilol 12.5 mg 05/08/21 07:30 05/08/21 08:05 Carvedilol 12.5 Mg Tab PO 12.5 mg BID-W/MEALS [place] Administration Latanoprost 1 drops 05/07/21 21:00 05/07/21 22:03 Latanoprost 0.005% Ophth Drops 2.5 Ml Btl LEFT EYE Not Given HS SPRING Magnesium Oxide 400 mg 05/07/21 21:00 05/08/21 08:06 Magnesium Oxide 400 Mg Tab PO 400 mg BID [place] Administration Meclizine HCl 25 mg 05/07/21 15:36 05/07/21 16:54 Meclizine 25 Mg Tab PO 25 mg TID PRN Administration Vertigo Pantoprazole Sodium 40 mg 05/08/21 07:30 05/08/21 08:05 Pantoprazole 40 Mg Tablet PO 40 mg [id number] [place] Administration Potassium Chloride 20 meq 05/08/21 09:00 05/08/21 08:06 Potassium Chloride Er 20 Meq Tab.Er PO 20 meq DAILY [place] Administration Pravastatin Sodium 80 mg 05/07/21 21:00 05/07/21 22:01 Pravastatin Sodium 80 Mg Tab PO 80 mg HS [place] Administration Prednisolone Acetate 1 drops 05/07/21 21:00 05/08/21 08:12 Prednisolone Acetate 1% Ophth Drops 5 Ml Btl RIGHT EYE 1 drops DAILY [place] Administration Prochlorperazine Maleate 5 mg 05/07/21 21:00 Prochlorperazine 5 Mg Tab PO Q6HR PRN Nausea Sacubitril/Valsartan 1 each 05/07/21 21:00 05/08/21 08:05 Sacubitril/Valsartan 24 Mg-26 Mg Tablet PO 1 each BID [place] Administration Spironolactone 50 mg 05/08/21 09:00 05/08/21 08:05 Spironolactone 25 Mg Tab PO 50 mg DAILY [place] Administration Ticagrelor 90 mg 05/07/21 21:00 05/08/21 08:05 Ticagrelor 90 Mg Tab PO 90 mg BID [place] Administration Timolol Maleate 1 drops 05/08/21 09:00 05/08/21 08:12 Timolol 0.5% Ophth Drops 5 Ml Btl LEFT EYE 1 drops BID [place] Administration Intake and Output 05/07/21 05/08/21 05/08/21 22:59 06:59 14:59 Other: Voiding Method Bedside Commode # Voids 1 2 Weight 58.513 kg 05/07/21 16:05 05/07/21 13:47
--- NOTE | 2021-05-08 15:23 | US ---
EXAMINATION TYPE: US carotid duplex BILAT DATE OF EXAM: 05/08/2021 COMPARISON: CT Brain, CTA CLINICAL HISTORY: dizziness. post recent CVA EXAM MEASUREMENTS: RIGHT: Peak Systolic Velocity (PSV) cm/sec ----- Right CCA: 110.6 ----- Right ICA: 115.7 ----- Right ECA: 76.5 ICA/CCA ratio: 1.0 RIGHT: End Diastole cm/sec ----- Right CCA: 21.5 ----- Right ICA: 26.8 ----- Right ECA: 0.0 LEFT: Peak Systolic Velocity (PSV) cm/sec ----- Left CCA: 90.3 ----- Left ICA: 97.9 ----- Left ECA: 40.7 ICA/CCA ratio: 1.1 LEFT: End Diastole cm/sec ----- Left CCA: 14.6 ----- Left ICA: 15.9 ----- Left ECA: 0.0 VERTEBRALS (direction of flow): Right Vertebral: Antegrade Left Vertebral: Antegrade Rhythm: Normal Mild intimal wall changes seen at bilateral carotid bifurcation, but PSV is wnl bilaterally. This may be slightly greater on the right. IMPRESSION: Atheromatous plaquing without significant flow-limiting stenosis. NASCET criteria was used in interpretation of this exam? Criteria for Assigning % of Stenosis / Diameter reduction (Estimation based on the indirect measurements of the internal carotid artery velocities (ICA PSV). 1. Normal (no stenosis)=ICA PSV < 125 cm/s: ratio < 2.0: ICA EDV<40 cm/s. 2. Less than 50% stenosis=ICA PSV < 125 cm/s: ratio < 2.0: ICA EDV<40 cm/s. 3. 50 to 69% stenosis=ICA PSV of 125 to 230 cm/s: ration 2.0 ? 4.0: ICA EDV 40-100 cm/s. 4. Greater than 70% stenosis to near occlusion= ICA PSV > 230 cm/s: ratio > 4.0: ICA EDV > 100 cm/s. 5. Near occlusion= ICA PSV velocities may be low or undetectable: variable ratio and ICA EDV. 6. Total occlusion=unable to detect flow.
--- NOTE | 2021-05-08 17:08 | P.CONS ---
History of Present Illness - Reason for Consult Consult date: 05/08/21 Anemia Requesting physician: Ritu Walker - Chief Complaint Dizziness, nausea, weakness - History of Present Illness A 75-year-old white female with a significant history of coronary artery disease status post recent recent stents, pacemaker, atrial fibrillation, colon cancer, and CVA presented to the emergency department with complaints of dizziness, weakness, and passing out. On presentation to the emergency department she was noted to be anemic with a hemoglobin of 8.0. She had a recent hemoglobin on 04/20/2021 of 10.5. Today's repeat labs show WBC 7.6, hemoglobin 8, hematocrit 24, platelet count 221,000, INR 1.2, total bilirubin 0.5, alkaline phosphatase 50, AST 29, ALT 18. The patient denies any signs of GI bleed, she denies any black stool or blood in her stool. States her bowel movements are normal. She denies any use of NSAIDs, she is currently on Brilinta and Eliquis for recent AICD/pacemaker that was placed in February 2021 as well as recent stents around December of this year. The patient has a history of colon cancer which she states was diagnosed 5 years ago and underwent colon resection without any colostomy bag, she was also started on chemotherapy and her treatment was done in [place]. States she went into remission but recently cancer came back. She follows with Dr. Cobos and stopped her chemotherapy about 4 months ago due to her cardiac issues. States she has nausea with dizziness, occasional vomiting. States she has a decreased appetite but is eating okay. No recent weight loss. States her last colonoscopy was 5 years ago when they diagnosed her colon cancer. She has had no repeat colonoscopy since. No history of EGD. Review of Systems REVIEW OF SYSTEMS: CARDIOPULMONARY: No chest pain or shortness of breath. Gastrointestinal: No abdominal pain.. Nausea, no vomiting. No hematemesis, coffee-ground emesis. No rectal bleeding, or melena. GENITOURINARY: No dysuria or hematuria. MUSCULOSKELETAL: Reports normal range of motion., Joint pain. SKIN: No rashes. No jaundice. ENDOCRINE: No chills, fevers. No excessive weight gain or loss. No polydipsia or polyuria. PSYCHIATRIC: Unremarkable. NEUROLOGY: Dizziness, weakness. Syncopal episode. ENT: Vision unremarkable. CONSTITUTIONAL: No recent weight loss. No fever, chills, night sweats. Past Medical History Past Medical History: Atrial Fibrillation, Cancer, Chest Pain / Angina, Heart Failure, Myocardial Infarction (MA) Additional Past Medical History / Comment(s): heart cath with stents, Cardiomyopathy, Colon cancer. treatment stopped overa month ago, AICD/ pace maker placed in march 19, cva with clot in february, transferred to [facility] for clot retrieval, Last Myocardial Infarction Date:: 11/2020 History of Any Multi-Drug Resistant Organisms: None Reported Past Surgical History: Heart Catheterization, Heart Catheterization With Stent Additional Past Surgical History / Comment(s): CHOLECYSTECTOMY 10/2016, GLAUCOMA, CATARACTS SURG RIGHT EYE 12/13/20 Past Anesthesia/Blood Transfusion Reactions: Postoperative Nausea & Vomiting (PONV) Date of Last Stent Placement:: 12/13/2020 2 STENTS PLACED "FRONT". Past Psychological History: No Psychological Hx Reported Smoking Status: Never smoker Past Alcohol Use History: Occasional Past Drug Use History: None Reported Medications and Allergies Home Medications Medication Instructions Recorded Confirmed Type Bimatoprost [Lumigan .01% Ophth 1 drop LEFT EYE HS 02/27/21 05/07/21 History Soln] Brimonidine Tartrate/Timolol 1 drop LEFT EYE BID 02/27/21 05/07/21 History [Combigan 0.2%-0.5% Eye Drops] Loteprednol Etabonate [Inveltys] 1 drop RIGHT EYE DAILY 02/27/21 05/07/21 History Pantoprazole Sodium [Protonix] 40 mg PO DAILY 02/27/21 05/07/21 History Pravastatin Sodium [Pravachol] 80 mg PO HS 02/27/21 05/07/21 History Ticagrelor [Brilinta] 90 mg PO BID 02/27/21 05/07/21 History Apixaban [Eliquis] 5 mg PO BID 04/03/21 05/07/21 History Potassium Chloride ER [K-Dur 20] 20 meq PO DAILY 20 Days #20 04/19/21 05/07/21 Rx tab.er.prt Spironolactone [Aldactone] 50 mg PO DAILY 30 Days #60 tab 04/19/21 05/07/21 Rx carvediloL [Coreg*] 12.5 mg PO BID-W/MEALS 30 Days #60 04/19/21 05/07/21 Rx tab Magnesium Oxide [Mag-Ox] 400 mg PO BID 30 Days #60 tablet 04/20/21 05/07/21 Rx Prochlorperazine [Compazine] 5 mg PO Q6HR PRN 2 Days #8 tab 04/20/21 05/07/21 Rx Sacubitril/Valsartan [Entresto 24 1 tab PO BID 05/07/21 05/07/21 History mg-26 mg Tablet] Amiodarone [Cordarone] 200 mg PO BID tab 05/08/21 Rx Allergies Allergy/AdvReac Type Severity Reaction Status Date / Time morphine AdvReac Nausea & Verified 05/07/21 16:05 Vomiting Physical Exam Vitals: Vital Signs Temp Pulse Pulse Pulse Pulse Pulse Resp 05/08/21 15:00 98.1 F 57 L 16 05/08/21 07:00 98.0 F 60 16 05/08/21 01:54 98.3 F 60 17 05/07/21 22:00 72 73 66 05/07/21 20:00 65 17 05/07/21 19:56 98.3 F 65 17 05/07/21 18:18 98.3 F 61 20 05/07/21 17:03 63 20 BP BP BP BP Pulse Ox 05/08/21 15:00 91/60 100 05/08/21 07:00 99/62 100 05/08/21 01:54 100/59 97 05/07/21 22:00 124/70 114/49 126/68 05/07/21 20:00 05/07/21 19:56 113/69 100 05/07/21 18:18 118/50 100 05/07/21 17:03 121/53 100 Intake and Output 05/08/21 05/08/21 05/08/21 06:59 14:59 22:59 Other: # Voids 2 2 Results CBC & Chem 7: 05/07/21 16:05 05/07/21 13:47 Labs: Abnormal Lab Results - Last 24 Hours (Table) 05/07/21 05/07/21 05/08/21 Range/Units 11:25 16:05 12:30 RBC 2.61 L (3.80-5.40) m/uL Hgb 8.0 L (11.4-16.0) gm/dL Hct 24.0 L (34.0-46.0) % RDW 16.7 H (11.5-15.5) % Lymphocytes # 0.4 L (1.0-4.8) k/uL Retic Count 3.6 H (0.5-2.0) % Troponin I 0.039 H* (0.000-0.034) ng/mL CT Scan - head: report reviewed (No acute hemorrhage or mass effect. Degenerative and nonspecific white matter changes.) Assessment and Plan (1) Normochromic normocytic anemia Narrative/Plan: C 75-year-old female with multiple medical comorbidities including coronary artery disease with history of chronic atrial fibrillation and recent cardiac arrest. Patient recently had a AICD placed in February of this year as well as recent cardiac stent placements done earlier this year with a history of colon cancer diagnosed about 5 years ago in [place]. At that time the patient underwent bowel resection without colostomy and chemotherapy. Patient states that she went into remission however the cancer returned and she was restarted with chemotherapy. The chemotherapy was stopped approximately 4 months ago and follows with Dr. Cobos. She presented to the emergency department with complaints of dizziness, weakness, and syncope. Cardiology is following closely, she follows with a event operations manager out of [facility]. The patient denies any signs of GI bleed, no hematemesis or coffee-ground emesis, no black stools or blood in her stool. She denies abdominal pain. She states that she has nausea but no vomiting. No complaints of recent weight loss, appetite has been decreased but is eating. Her last colonoscopy was reported approximately 5 years ago prior to her diagnosis of colon cancer. She has not had a repeat colonoscopy since. She currently is taking Brilinta and Eliquis, she denies any NSAID use. She has no history of peptic ulcer disease and no previous EGD. Hematology will be consult that, we'll need to discuss with cardiology regarding possibility of stopping Eliquis and Brilinta and will need cardiac clearance for any endoscopic evaluation. Patient presents with a normochromic normocytic anemia, this may also be related to anemia of chronic disease. Iron studies will be ordered. Current Visit: Yes Status: Acute Code(s): D64.9 - ANEMIA, UNSPECIFIED SNOMED Code(s): 44603667 (2) History of colon cancer Current Visit: No Status: Acute Code(s): Z85.038 - PERSONAL HISTORY OF MALIGNANT NEOPLASM OF LARGE INTESTINE SNOMED Code(s): 762322446 (3) Coronary artery disease Current Visit: Yes Status: Acute Code(s): I25.10 - ATHSCL HEART DISEASE OF [place] CORONARY ARTERY W/O ANG PCTRS SNOMED Code(s): 15546767 (4) History of chronic atrial fibrillation Current Visit: Yes Status: Acute Code(s): Z86.79 - PERSONAL HISTORY OF OTHER DISEASES OF THE CIRCULATORY SYSTEM SNOMED Code(s): 582043839 (5) Elevated troponin Current Visit: No Status: Acute Code(s): R77.8 - OTHER SPECIFIED ABNORMALITIES OF PLASMA PROTEINS SNOMED Code(s): 659846556 Plan: 1. Continue symptomatic and supportive care 2. Diet as tolerated 3. Will discuss with cardiology regarding proceeding with possible endoscopic evaluation, will need cardiac clearance and clearance to hold Brilinta and Eliqu is 4. Anemia panel ordered 5. Hematology consulted, patient known to Dr. Cobos 6. Daily CBC, transfuse for hemoglobin less than 7 Thank you for this consultation, we will continue to follow. Dr. Sumner I agree with the dictator's note, documented as a scribe by Valerie Izaguirre.
[2021-05-08] MEDS: PRAVASTATIN SODIUM 80 MG TAB PO SCH (20:39)
[2021-05-08] MEDS: LATANOPROST 0.005% OPHTH DROPS 2.5 ML BTL LEFT EYE SCH ×2 (20:40→20:48)
[2021-05-08 20:57] LABS: % Iron Saturation 15.55 (12.00-45.00)
[2021-05-08 21:06] LABS: Ferritin 41.3 ng/mL (10.0-291.0)
[2021-05-09 04:05] LABS: Folate, Serum 11.7 ng/mL
[2021-05-09] MEDS: PANTOPRAZOLE 40 MG TABLET PO SCH (08:44)
[2021-05-09] MEDS: SPIRONOLACTONE 25 MG TAB PO SCH (08:44)
[2021-05-09] MEDS: carvediloL 12.5 MG TAB PO SCH (08:44)
[2021-05-09] MEDS: POTASSIUM CHLORIDE ER 20 MEQ TAB.ER PO SCH (08:44)
[2021-05-09] MEDS: APIXABAN 5 MG TAB PO SCH (08:44)
[2021-05-09] MEDS: MAGNESIUM OXIDE 400 MG TAB PO SCH ×2 (08:44→20:19)
[2021-05-09] MEDS: AMIODARONE 200 MG TAB PO SCH ×2 (08:48→20:19)
[2021-05-09] MEDS: SACUBITRIL/VALSARTAN 24 MG-26 MG TABLET PO SCH ×2 (08:48→20:19)
[2021-05-09] MEDS: TICAGRELOR 90 MG TAB PO SCH (08:49)
[2021-05-09] MEDS: BRIMONIDINE TARTRATE 0.2% DROPS 5 ML BTL LEFT EYE SCH ×2 (08:51→20:19)
[2021-05-09] MEDS: prednisoLONE ACETATE 1% OPHTH DROPS 5 ML BTL RIGHT EYE SCH (08:51)
[2021-05-09] MEDS: TIMOLOL 0.5% OPHTH DROPS 5 ML BTL LEFT EYE SCH ×2 (08:52→20:19)
[2021-05-09 10:11] LABS: Basophils # (A) 0.02 X 10*3/uL (0.00-0.10); Basophils % (A) 0.3 %; Eosinophils # (A) 0.09 X 10*3/uL (0.04-0.35); Eosinophils % (A) 1.5 %; HCT 18.7 % (37.2-46.3); HGB 5.9 g/dL (12.0-15.0); Lymphocytes # (A) 0.45 X 10*3/uL (0.90-5.00); Lymphocytes % (A) 7.4 %; MCH 30.6 pg (27.0-32.0); MCHC 31.6 g/dL (32.0-37.0); MCV 96.9 fL (80.0-97.0); Mean Platelet Volume 11.7 fL (9.5-12.2); Monocytes # (A) 0.35 X 10*3/uL (0.20-1.00); Monocytes % (A) 5.7 %; Neutrophils # (A) 5.16 X 10*3/uL (1.80-7.70); Neutrophils % (A) 84.6 %; Platelet Count 182 X 10*3/uL (140-440); RBC 1.93 X 10*6/uL (4.10-5.20); RDW 17.6 % (11.5-14.5)
[2021-05-09 10:25] LABS: African American GFR (CKD) 50.5 (60.0-200.0); Albumin 3.3 g/dL (3.80-4.90); Albumin/Globulin Ratio 1.94 (1.60-3.17); Anion Gap 6.1 mmol/L (4.00-12.00); BUN/Creat Ratio 17.5 Ratio (12.00-20.00); Calcium 8.6 mg/dL (8.7-10.3); Carbon Dioxide 24.9 mmol/L (21.6-31.8); Globulin 1.7 g/dL (1.6-3.3); Non-African American GFR(CKD) 43.6 (60.0-200.0); Potassium 4.5 mmol/L (3.5-5.5); Total Bilirubin 0.4 mg/dL (0.3-1.2)
[2021-05-09] MEDS ORDERED: Potassium Replacement Protocol 1 EACH MISC MISCELLANE PRN (11:11)
--- NOTE | 2021-05-09 11:15 | P.PN ---
Subjective This is a pleasant 75-year-old female past medical history significant for coronary artery disease status post PCI proximal LAD and mid LAD 11/2020, ischemic cardiomyopathy status post AICD placement in 02/2021, dyslipidemia, hypertension, CVA. History of colon cancer diagnosed about 5 years ago in [place]. At that time the patient underwent bowel resection without colostomy and chemotherapy. Patient states that she went into remission however the cancer returned and she was restarted with chemotherapy. The chemotherapy was stopped approximately 4 months ago. She follows in the office with Dr. Nice. We have been asked to see in consultation for dizziness. Patient states that over the past 4 days she has been having episodes of dizziness when she rotates her neck and turns her head from side to side. When she does this she states it looks "fuzzy" and she cant see clearly. She denies room spinning sensation. If she is looking straight ahead she has no symptoms. Yesterday in particular she had another episode of dizziness, felt lightheaded and did fall to her knees. She denies loss of consciousness. She recently followed up with Dr. Nice on 04/26 and her amiodarone was decreased to 200mg BID from 400mg and she was restarted on her spironolactone. She has been feeling fine since then. She denies any weakness, headache, chest pain, shortness of breath, palpitations, nausea, vomiting, diarrhea, denies blood in urine or stool, denies dark bowel movements. She endorses having a decreased appetite. Patient was recently admitted on 04/03/2021 with complaints of lightheadedness and presyncope. She was found to be hypokalemic. Cardiology was consulted due to cardiac arrest near-syncope. At that time patient was taken to x-ray and she went unresponsive, she had agonal breathing, she had no pulse. CPR was begun at that time. Her ICD went off and her pulses returned. Patient did not remember this event. Patient was started on amiodarone drip. Reviewing her device check- She did have an Episode of VF/VT and received an ICD shock. She also was having very frequent runs of nonsustained ventricular tachycardia and nonsustained ventricular fibrillation Patient's VF/VT was attributed to her severe hypokalemia. Dr. Upton evaluated the patient, and recommended aldactone, avoid overdiuresis, and mexiletine. However, patient could not tolerate mexiletine due to nausea and vomiting. Patient was also started on Entresto. She was also admitted in 02/2021 due to diarrhea and hypokalemia was also discharged on LifeVest. She had recurrent ventricular tachycardia requiring shocks and subsequently received an ICD. On the following day patient had symptoms of CVA with the middle cerebral artery occlusion which is clearly embolic, received TPA and was transported [facility]. She started anticoagulation Eliquis and Brilinta. While she was inpatient at [facility] there is no documentations of atrial fibrillation during her hospital stay and her echocardiogram showed a severely impaired systolic function no evidence of apical thrombus. Most recent limited echocardiogram 04/13/2021 revealed an EF 25-30%, mild MR 05/10/2021: Patient seen at bedside. This morning when patient was walking to and from the bathroom she became lightheaded and had associated dizziness. Her blood pressure per nursing was 78/40s.HR 60s. When patient sat down and rested BP returned to 102/67. Patient also endorses dark bowel movements. She states she does feel fatigued. Laboratory data review WBC 6.1, hemoglobin 5.9, platelets 182, sodium 136, potassium 4.5, BUN 21, serum creatinine 1.2. Patient currently maintained on amiodarone 20 mg twice a day, carvedilol to 0.5 mg twice daily, Eliquis 5 mg twice a day, Brilinta 90 mg twice a day, potassium chloride 20 mEq daily, pravastatin 80 mg nightly, and Entresto 24 mg26 mg twice a day, spironolactone 50 mg daily. Telemetry reviewed patient continues to be in sinus mechanism heart rate 55-60's. Carotid ultrasound revealed mild intimal wall changes seen in the bilateral carotid bifurcation. No significant flow-limiting stenosis. PHYSICAL EXAMINATION Blood pressure 112/67 heart rate 64 afebrile and maintaining oxygen saturation 100% on room air CONSTITUTIONAL: No apparent distress. HEENT: Neck Supple. No JVD. CHEST EXAMINATION: Lungs are clear to auscultation. HEART EXAMINATION: Regular rate and rhythm. S1, S2 heard. Systolic murmur at ape x ABDOMEN: Soft, nontender. Positive bowel sounds. EXTREMITIES: 2+ peripheral pulses, no lower extremity edema and no calf tenderness. NEUROLOGIC EXAMINATION: Patient is awake, alert and oriented x3. ASSESSMENT Dizziness, Lightheadedness Coronary artery disease status post PCI proximal LAD and mid LAD 11/2020 Ischemic cardiomyopathy status post single chamber AICD placement in 02/[address] Thomas History of nonsustained fast VT and nonsustained ventricular fibrillation with ICD shock in March 2021 Congestive systolic heart failure Dyslipidemia Hypertension CVA in February 2021 History of colon cancer s/p bowel resection without colostomy and chemotherapy Anemia- Hgb 5.6 this morning PLAN Hold Eliquis and Brilinta Reduce Carvedilol 6.25mg BID Will obtain records from [facility] in regards to why patient was started on Eliquis and if patient was diagnosed with atrial fibrillation Obtain Limited Echo Patient may need intermittent IV Lasix with blood transfusions Patient is sensitive with prep, will check electrolytes overnight after prep is started. From a cardiology perspective, the benefits of EGD/Colonoscopy outweigh the risks at this time. Patient does have history of congestive heart failure, history of ischemic heart disease, history of CVA. Patient may proceed with EGD/Colonoscopy with GI with no additional cardiac testing or procedures. Patient is currently hemodynamically stable. Recommend cautious fluid administration and optimal BP control. Continue cardiac telemetry Further recommendations pending clinical course Nurse Practitioner note has been reviewed, I agree with a documented findings and plan of care. Patient was seen and examined. Objective - Vital Signs Vital signs: Vital Signs Temp 97.9 F 05/09/21 07:00 Pulse 64 05/09/21 07:00 Resp 16 05/09/21 07:00 BP 112/67 05/09/21 07:00 Pulse Ox 98 05/09/21 07:00 Intake & Output 05/08/21 05/09/21 05/09/21 18:59 06:59 18:59 Other: Voiding Method Bedside Commode # Voids 2 2 # Bowel Movements 1 - Labs CBC & Chem 7: 05/09/21 04:45 05/09/21 04:45 Labs: Abnormal Lab Results - Last 24 Hours (Table) 05/07/21 05/07/21 05/08/21 Range/Units 11:25 11:25 12:30 RBC (4.10-5.20) X 10*6/uL Hgb (12.0-15.0) g/dL Hct (37.2-46.3) % MCHC (32.0-37.0) g/dL RDW (11.5-14.5) % Lymphocytes # (0.90-5.00) X 10*3/uL Retic Count 3.6 H (0.5-2.0) % Est GFR (CKD-EPI)AfAm (60.0-200.0) Est GFR (CKD-EPI)NonAf (60.0-200.0) Calcium (8.7-10.3) mg/dL Troponin I 0.039 H* (0.000-0.034) ng/mL Total Protein (6.2-8.2) g/dL Albumin (3.80-4.90) g/dL Vitamin B12 149.0 L (200.0-944.0) pg/mL 05/09/21 05/09/21 Range/Units 04:45 04:45 RBC 1.93 L (4.10-5.20) X 10*6/uL Hgb 5.9 L* (12.0-15.0) g/dL Hct 18.7 L* (37.2-46.3) % MCHC 31.6 L (32.0-37.0) g/dL RDW 17.6 H (11.5-14.5) % Lymphocytes # 0.45 L (0.90-5.00) X 10*3/uL Retic Count (0.5-2.0) % Est GFR (CKD-EPI)AfAm 50.5 L (60.0-200.0) Est GFR (CKD-EPI)NonAf 43.6 L (60.0-200.0) Calcium 8.6 L (8.7-10.3) mg/dL Troponin I (0.000-0.034) ng/mL Total Protein 5.0 L (6.2-8.2) g/dL Albumin 3.30 L (3.80-4.90) g/dL Vitamin B12 (200.0-944.0) pg/mL
--- NOTE | 2021-05-09 11:48 | P.PN ---
Subjective Progress Note Date: 05/09/21 Hernan Contreras, is a 75-year-old female presented to [facility] emergency room with a chief complaint of dizziness, patient stated that she went to have a blood test at Dr. Cifuentes's office when she returned home she was feeling very dizzy and she fell down to her knees, she was helped to a chair by her family, she continued to feel dizzy, she describes her head floating in front of her, she describes difficulty looking to the sides due to feeling dizzy and feeling nauseated . She was evaluated in the emergency room, vital examination on presentation revealed a temperature of 98.6 pulse 60 respiration 20 blood pressure 119/52 pulse ox 99% on room air. Laboratory data in the emergency room revealed a white blood count of 7.8 hemoglobin 8.0 and a platelet count of 2:30 sodium 132 potassium 4.4 chloride 105 CO2 19 BUN 21 creatinine 1.02 troponin level 0.024 testing in the emergency room included an EKG that revealed a sinus rhythm with first-degree AV block and right bundle branch block and T-wave abnormality in the inferior leads chest x-ray revealed no acute abnormality, computed tomography scan of the brain revealed no acute hemorrhage or mass affect. Patient was admitted to telemetry floor for further evaluation, carotid Doppler was ordered, cardiology consultation was requested, gastroenterology consultation was requested in regard to anemia. Patient was recently admitted to [facility] after having a cardiac arrest and having her defibrillator firing, at that time she was having hypokalemia, patient has a known history of acute systolic congestive heart failure with ejection fraction of 25-30% she has underlying history of ventricular tachycardia and had an AICD placed in February 2021, she has a history of coronary artery disease with recent angioplasty and stent placement, she has a history of hypertension, hyperlipidemia, and a previous history of colon cancer. On 05/09/2021 patient alert and oriented 3. Hemoglobin today 5.9. 1 unit of PRBCs ordered. GI services are following with possible plans of endoscopic exams. Cardiology services are also following 2-D echo has been ordered. Brilinta and eliquis on hold. Carotid ultrasound completed showing no significant flow-limiting stenosis.Patient denies any nausea or vomiting. Patient denies any dark stool. Patient denies any urinary burning or frequency. Patient received IV Lasix 20 mg after each unit Objective - Vital Signs Vital signs: Vital Signs Temp 97.9 F 05/09/21 07:00 Pulse 64 05/09/21 07:00 Resp 16 05/09/21 07:00 BP 112/67 05/09/21 07:00 Pulse Ox 98 05/09/21 07:00 Intake & Output 05/08/21 05/09/21 05/09/21 18:59 06:59 18:59 Other: Voiding Method Bedside Commode # Voids 2 2 # Bowel Movements 1 - Exam In general patient is alert and oriented x 3 in no distress HEENT head normocephalic and atraumatic Neck is supple no JVD no goiter no lymphadenopathy no carotid bruit Chest examination is clear to auscultation no crackles no wheezing Cardiac exam reveals regular heart sounds S1 and S2 no gallops no murmurs Abdomen is soft nontender no organomegaly with normal bowel sounds Extremity exam reveals no edema no cyanosis or clubbing Neurological examination reveals no gross focal deficits - Labs CBC & Chem 7: 05/09/21 04:45 05/09/21 04:45 Labs: Abnormal Lab Results - Last 24 Hours (Table) 05/07/21 05/07/21 05/08/21 Range/Units 11:25 11:25 12:30 RBC (4.10-5.20) X 10*6/uL Hgb (12.0-15.0) g/dL Hct (37.2-46.3) % MCHC (32.0-37.0) g/dL RDW (11.5-14.5) % Lymphocytes # (0.90-5.00) X 10*3/uL Retic Count 3.6 H (0.5-2.0) % Est GFR (CKD-EPI)AfAm (60.0-200.0) Est GFR (CKD-EPI)NonAf (60.0-200.0) Calcium (8.7-10.3) mg/dL Troponin I 0.039 H* (0.000-0.034) ng/mL Total Protein (6.2-8.2) g/dL Albumin (3.80-4.90) g/dL Vitamin B12 149.0 L (200.0-944.0) pg/mL 05/09/21 05/09/21 Range/Units 04:45 04:45 RBC 1.93 L (4.10-5.20) X 10*6/uL Hgb 5.9 L* (12.0-15.0) g/dL Hct 18.7 L* (37.2-46.3) % MCHC 31.6 L (32.0-37.0) g/dL RDW 17.6 H (11.5-14.5) % Lymphocytes # 0.45 L (0.90-5.00) X 10*3/uL Retic Count (0.5-2.0) % Est GFR (CKD-EPI)AfAm 50.5 L (60.0-200.0) Est GFR (CKD-EPI)NonAf 43.6 L (60.0-200.0) Calcium 8.6 L (8.7-10.3) mg/dL Troponin I (0.000-0.034) ng/mL Total Protein 5.0 L (6.2-8.2) g/dL Albumin 3.30 L (3.80-4.90) g/dL Vitamin B12 (200.0-944.0) pg/mL Assessment and Plan Plan: 1. Dizziness and lightheadedness, cause is unclear could be related to inner ear vertigo, Antivert was ordered, will check carotid Doppler 2. Episode of presyncope with falling down to her knees at home prior to presentation 3. Anemia hemoglobin down to 8.0 her hemoglobin was 10.5 on 04/20/2021 patient i s maintained on Eliquis and Brillinta, gastroenterology consultation was requested stool Hemoccult was ordered. Hemoglobin 5.9. 1 unit of PRBCs ordered Will check iron profile, vitamin B12 and folate levels and replace if needed 4. Underlying history of coronary artery disease, EKG is abnormal and first troponin level is slightly elevated, will check troponin again, cardiology consult was requested 5. Underlying history of cardiomyopathy with ejection fraction of 25-30% 6. Hypotension which may be contributing to patient feeling of dizziness cardiology consultation was requested to reevaluate cardiac medications 7. Underlying history of hyperlipidemia maintained on Pravachol 80 mg once daily Home medications reviewed and reordered Cardiology and gastroenterology consultation requested Carotid Doppler completed showing no flow-limiting stenosis Echocardiogram was done recently, no need to repeat at this time Blood transfusion ordered. Patient to receive IV Lasix after transfusion Possible endoscopic exam per GI services Will follow closely
[2021-05-09] MEDS ORDERED: FUROSEMIDE 10 MG/ML 2 ML VIAL IV ONE (13:00)
--- NOTE | 2021-05-09 13:39 | ECHOF ---
Referral Reason:repeat. rule out effusion MEASUREMENTS -------- HEIGHT: 152.4 cm WEIGHT: 58.5 kg BP: 112/67 IVSd: 0.9 cm (0.6 - 1.1) LVIDd: 4.9 cm (3.9 - 5.3) LVPWd: 1.2 cm (0.6 - 1.1) IVSs: 1.2 cm LVIDs: 4.2 cm LVPWs: 1.4 cm FINDINGS -------- Sinus rhythm. This was a technically adequate study. Limited Study The left ventricular size is normal. Left ventricular wall thickness is normal. Overall left vent ricular systolic function is moderate-severely impaired with, an EF between 30 - 35 %. Mid inferose ptal LV wall motion is akinetic. Mid anteroseptal LV wall motion is akinetic. Apical anterior L V wall motion is akinetic. Apical lateral LV wall motion is akinetic. Apical inferior LV wall m otion is akinetic. Apical septum LV wall motion is akinetic. Electronic pacemaker lead seen in the right atrial cavity. There is no pericardial effusion. CONCLUSIONS -------- 1. The left ventricular size is normal. 2. Left ventricular wall thickness is normal. 3. Overall left ventricular systolic function is moderate-severely impaired with, an EF between 30 - 35 %. 4. Mid inferoseptal LV wall motion is akinetic. 5. Mid anteroseptal LV wall motion is akinetic. 6. Apical anterior LV wall motion is akinetic. 7. Apical lateral LV wall motion is akinetic. 8. Apical inferior LV wall motion is akinetic. 9. Apical septum LV wall motion is akinetic. LOOPING INSPECTOR: Matilda De Jesus, [facility]
--- NOTE | 2021-05-09 15:23 | P.CONS ---
History of Present Illness - Reason for Consult Consult date: 05/09/21 History of colon cancer Requesting physician: Valerie Vargas - Chief Complaint Symptomatic Anemia - History of Present Illness Valerie is being evaluated in office today to resume Oncologic care of recently diagnosed metastatic Colon Cancer. She presented to PCP in [place] with bloating, abdominal discomfort and weight loss, she was found to have microcytic anemia and refered to Gi > Had EGD/Colonoscopy on 11/13/2017 revealing cicumfrential mass in transverse Colon, biopsy was C/W Adenocarcinoma. She had partial Hemicolectomt with intraperitoneal tumor biopsy and right salpingo- oophorectomy on 12/02/2017 revealing 7cm moderately differentiated Adenocarcinoma extending to Omentum with involvement of 04/17 Lymph nodes, pelvic and retroperitoneal mets were identified as well. She was seen by Dr Bal (Medical Oncology)> started on palliative Chemotherapy with FOLFOX/Avastin regimen > tolerated well to start, but she developed severe peripheral neuropathy including motor neuropathy in feet, severe numbness in hands and ptosis (MRI of brain negative) > Oxalplatinum stopped > Chemotherapy resumed with 5FU/Leucovorin/Avastin. Total of 7 cycles given, Avastin held cycle#7 (Given 04/14/18) due to possible L Breast Core needle biopsy after routine screening mammograms revealed mildly suspecious calcifications. She feels well, no abdominal pain, has intermitent constipation, no N/V. Has mild upper extremities hands sensory neuropathy. No further anorexia or weight l oss, remains fully active. She denies family history of Colon or breast Ca, a lifetime non smoker, denies ETOH use. She is being treated for Avastin-induced mild HTN. 05/21/18: Feels well, tolerating 5FU/Avastin well, fully active, no abdominal pain. 06/18/18: Feels Ok, completed Chemotherapy, had abnormal mammogram with Calcium deposits in UOQ L Breast. 02/10/19: Feels well, tolerating Avastin well (Y1ddtls) without any side effects, remains fully active. 03/23/19Toleraing Avastin well, had recent UTI > symptoms resolved. 05/25/19: Feels well, tolerating Avastin well. 03/31/20: Tolerating Avastin well (now 7.5mg /Kg IV Q 3 weeks), asymptomatic & fully active. 05/26/20: Tolerating maintenance Avastin well ( Occasional gums bleed), feels well, no abdominal pain, no constitutional symptoms of malignancy. 06/13/20: Feels well, tolerating Avastin well, no abdominal pain or changes in bowel habits. 02/16/21: Had AMI while in [place], had 2 stents placed, wearing event monitor. Avastin stopped after RI (Last dose early November 2020). Stated feeling well at present, C/O fatigue, no visceral or skeletal pain, no anorexia or weight loss. PET scan was scheduled last visit in JANUARY for 03/23/21, patient never had done. Therefore her follow-up visit was rescheduled as well as PET, although she did not show for this appointment either. This appears to be related to her recurrent admissions for cardiac problems resulting in cath, lifevest AICD. She now presents to [facility] with symptomatic severe anemia, hemoglobin 5.6 Review of Systems Poor HIstorian All systems: negative Constitutional: Reports as per HPI Past Medical History Past Medical History: Atrial Fibrillation, Cancer, Chest Pain / Angina, Heart Failure, Myocardial Infarction (RI) Additional Past Medical History / Comment(s): heart cath with stents, Cardiomyopathy, Colon cancer. treatment stopped overa month ago, AICD/ pace maker placed in march 19, cva with clot in february, transferred to [facility] clot retrieval, Last Myocardial Infarction Date:: 11/2020 History of Any Multi-Drug Resistant Organisms: None Reported Past Surgical History: Heart Catheterization, Heart Catheterization With Stent Additional Past Surgical History / Comment(s): CHOLECYSTECTOMY 10/2016, GLAUCOMA, CATARACTS SURG RIGHT EYE 12/13/20 Past Anesthesia/Blood Transfusion Reactions: Postoperative Nausea & Vomiting (PONV) Date of Last Stent Placement:: 12/13/2020 2 STENTS PLACED "FRONT". Past Psychological History: No Psychological Hx Reported Smoking Status: Never smoker Past Alcohol Use History: Occasional Past Drug Use History: None Reported Medications and Allergies Home Medications Medication Instructions Recorded Confirmed Type Bimatoprost [Lumigan .01% Ophth 1 drop LEFT EYE HS 02/27/21 05/07/21 History Soln] Brimonidine Tartrate/Timolol 1 drop LEFT EYE BID 02/27/21 05/07/21 History [Combigan 0.2%-0.5% Eye Drops] Loteprednol Etabonate [Inveltys] 1 drop RIGHT EYE DAILY 02/27/21 05/07/21 History Pantoprazole Sodium [Protonix] 40 mg PO DAILY 02/27/21 05/07/21 History Pravastatin Sodium [Pravachol] 80 mg PO HS 02/27/21 05/07/21 History Ticagrelor [Brilinta] 90 mg PO BID 02/27/21 05/07/21 History Apixaban [Eliquis] 5 mg PO BID 04/03/21 05/07/21 History Potassium Chloride ER [K-Dur 20] 20 meq PO DAILY 20 Days #20 04/19/21 05/07/21 Rx tab.er.prt Spironolactone [Aldactone] 50 mg PO DAILY 30 Days #60 tab 04/19/21 05/07/21 Rx carvediloL [Coreg*] 12.5 mg PO BID-W/MEALS 30 Days #60 04/19/21 05/07/21 Rx tab Magnesium Oxide [Mag-Ox] 400 mg PO BID 30 Days #60 tablet 04/20/21 05/07/21 Rx Prochlorperazine [Compazine] 5 mg PO Q6HR PRN 2 Days #8 tab 04/20/21 05/07/21 Rx Sacubitril/Valsartan [Entresto 24 1 tab PO BID 05/07/21 05/07/21 History mg-26 mg Tablet] Amiodarone [Cordarone] 200 mg PO BID tab 05/08/21 Rx Allergies Allergy/AdvReac Type Severity Reaction Status Date / Time morphine AdvReac Nausea & Verified 05/07/21 16:05 Vomiting Physical Exam Vitals: Vital Signs Temp Pulse Pulse Resp BP BP Pulse Ox 05/09/21 07:00 97.9 F 64 16 112/67 98 05/09/21 01:41 98.2 F 61 16 94/59 98 05/08/21 20:00 16 05/08/21 19:23 98.3 F 57 L 18 113/70 100 05/08/21 15:00 98.1 F 57 L 16 91/60 100 Intake and Output 05/08/21 05/09/21 05/09/21 22:59 06:59 14:59 Other: Voiding Method Bedside Commode # Voids 2 2 - Constitutional General appearance: cooperative, no acute distress - EENT Eyes: EOMI ENT: hard of hearing, NA/AT - Neck Neck: normal ROM - Respiratory Respiratory: bilateral: diminished - Cardiovascular Rhythm: irregularly irregular - Gastrointestinal General gastrointestinal: soft, tenderness - Integumentary Integumentary: pale - Musculoskeletal Musculoskeletal: generalized weakness - Psychiatric poor historian Psychiatric: A&O x's 3 Results CBC & Chem 7: 05/09/21 04:45 05/09/21 04:45 Labs: Abnormal Lab Results - Last 24 Hours (Table) 05/07/21 05/07/21 05/08/21 Range/Units 11:25 11:25 12:30 Retic Count 3.6 H (0.5-2.0) % Troponin I 0.039 H* (0.000-0.034) ng/mL Vitamin B12 149.0 L (200.0-944.0) pg/mL Assessment and Plan (1) Metastatic colorectal cancer Current Visit: Yes Status: Acute Code(s): C19 - MALIGNANT NEOPLASM OF RECTOSIGMOID JUNCTION SNOMED Code(s): 68367450 (2) Anemia Current Visit: Yes Status: Acute Code(s): D64.9 - ANEMIA, UNSPECIFIED SNOMED Code(s): 465298212 (3) Vertigo Current Visit: Yes Status: Acute Code(s): R42 - DIZZINESS AND GIDDINESS SNOMED Code(s): 015613089 Plan: Assessment and Recommendations: Symptomatic Anemia: - Need to assess for bleeding, recurrent or progressive cancer, hemolysis - GI Eval - Iron studies prior to transfusion - Repeat CBC in am Metastatic Colon Cancer: - Treatment interrupted and restaging interrupted with need for cardiac interventions over the past 2 months - Recheck CEA - Restaging PET at discharge (originally scheduled in February) Physician Attest: I have completed the fullhistory and physical and agree with above dictation, dictated as a scribe
--- NOTE | 2021-05-09 16:07 | P.PN ---
Subjective Progress Note Date: 05/09/21 Principal diagnosis: Anemia Patient seen and examined. She denies any signs or symptoms of GI bleed. She denies any abdominal pain, nausea, or vomiting. Dr. Cheema was at the bedside and would like gastroenterology to proceed with EGD and colonoscopy to rule out GI bleed, as patient did have iron studies are consistent with mild iron deficiency anemia. Also spoke with Dr. Zimmerman from cardiology who would like the patient to remain on her Brilinta due to recent cardiac stent placement within the last 3 months. Objective - Vital Signs Vital signs: Vital Signs Temp 97.9 F 05/09/21 07:00 Pulse 64 05/09/21 07:00 Resp 16 05/09/21 07:00 BP 112/67 05/09/21 07:00 Pulse Ox 98 05/09/21 07:00 Intake & Output 05/08/21 05/09/21 05/09/21 18:59 06:59 18:59 Other: Voiding Method Bedside Commode # Voids 2 2 # Bowel Movements 1 - Exam General appearance: The patient is alert, oriented, appears in no acute dis tress. HET: Head is normocephalic and atraumatic. Conjunctiva pink. Sclera anicteric. Neck: Supple without lymphadenopathy. Abdomen: Soft, nontender, nondistended with bowel sounds. No guarding or rigidity. Extremities: Normal skin color and turgor. No pedal edema Skin: No rashes, no jaundice Neurological: No focal deficits. Alert and oriented 3. - Labs CBC & Chem 7: 05/09/21 04:45 05/09/21 04:45 Labs: Abnormal Lab Results - Last 24 Hours (Table) 05/07/21 05/07/21 05/08/21 Range/Units 11:25 11:25 12:30 Retic Count 3.6 H (0.5-2.0) % Troponin I 0.039 H* (0.000-0.034) ng/mL Vitamin B12 149.0 L (200.0-944.0) pg/mL Assessment and Plan (1) Normochromic normocytic anemia Narrative/Plan: C 75-year-old female with multiple medical comorbidities including coronary artery disease with history of chronic atrial fibrillation and recent cardiac arrest. Patient recently had a AICD placed in February of this year as well as re cent cardiac stent placements done earlier this year with a history of colon cancer diagnosed about 5 years ago in [place]. At that time the patient underwent bowel resection without colostomy and chemotherapy. Patient states that she went into remission however the cancer returned and she was restarted with chemotherapy. The chemotherapy was stopped approximately 4 months ago and follows with Dr. Cobos. She presented to the emergency department with complaints of dizziness, weakness, and syncope. Cardiology is following closely, she follows with a digital media representative out of [facility]. The patient denies any signs of GI bleed, no hematemesis or coffee-ground emesis, no black stools or blood in her stool. She denies abdominal pain. She states that she has nausea but no vomiting. No complaints of recent weight loss, appetite has been decreased but is eating. Her last colonoscopy was reported approximately 5 years ago prior to her diagnosis of colon cancer. She has not had a repeat colonoscopy since. She currently is taking Brilinta and Eliquis, she denies any NSAID use. She has no history of peptic ulcer disease and no previous EGD. Hematology will be consult that, we'll need to discuss with cardiology regarding possibility of stopping Eliquis and Brilinta and will need cardiac clearance for any endoscopic evaluation. Patient presents with a normochromic normocytic anemia, this may also be related to anemia of chronic disease. Iron studies will be ordered. Current Visit: Yes Status: Acute Code(s): D64.9 - ANEMIA, UNSPECIFIED SNOMED Code(s): 77319330 (2) History of colon cancer Current Visit: No Status: Acute Code(s): Z85.038 - PERSONAL HISTORY OF MALIGNANT NEOPLASM OF LARGE INTESTINE SNOMED Code(s): 979387891 (3) Coronary artery disease Current Visit: Yes Status: Acute Code(s): I25.10 - ATHSCL HEART DISEASE OF [place] CORONARY ARTERY W/O ANG PCTRS SNOMED Code(s): 70149456 (4) History of chronic atrial fibrillation Current Visit: Yes Status: Acute Code(s): Z86.79 - PERSONAL HISTORY OF OTHER DISEASES OF THE CIRCULATORY SYSTEM SNOMED Code(s): 681680493 (5) Elevated troponin Current Visit: No Status: Acute Code(s): R77.8 - OTHER SPECIFIED ABNORMALITIES OF PLASMA PROTEINS SNOMED Code(s): 345771782 Plan: 1. Continue symptomatic and supportive care 2. Diet as tolerated, clear liquid diet starting in the morning 3. Discussed patient with oncology who would like estrogen neurology to proceed with upper and lower endoscopy. This was also discussed with cardiology who would like patient to remain on her [place] test, but okay to discontinue eliquis. 4. Anemia panel ordered and reviewed 5. Hematology on consult, appreciate the recommendations 6. Daily CBC, transfuse for hemoglobin less than 7 7. Discussed with patient and her recommendation is to proceed with EGD and colonoscopy to evaluate for possible GI source for anemia Friday. Continue to hold Eliquis. Patient may continue Brilinta, as no biopsies will be completed at this time. 8. Cardiology to clear patient for EGD and colonoscopy Thank you for this consultation, we will continue to follow. Dr. Sumner I agree with the dictator's note, documented as a scribe by Valerie zIaguirre.
[2021-05-09] MEDS: carvediloL 6.25 MG TAB PO SCH (17:36)
[2021-05-09] MEDS: LATANOPROST 0.005% OPHTH DROPS 2.5 ML BTL LEFT EYE SCH (20:18)
[2021-05-09] MEDS: PRAVASTATIN SODIUM 80 MG TAB PO SCH (20:19)
[2021-05-09 23:18] LABS: Reticulocyte % 3.59 % (0.10-1.80)
[2021-05-10 01:38] LABS: Anisocytosis Slight; Basophils % (A) 0 %; Eosinophils # (A) 0.1 k/uL (0-0.7); Eosinophils % (A) 1 %; HCT 27.6 % (34.0-46.0); HGB 9.4 gm/dL (11.4-16.0); Lymphocytes # (A) 0.6 k/uL (1.0-4.8); Lymphocytes % (A) 7 %; MCH 31.7 pg (25.0-35.0); MCHC 34.2 g/dL (31.0-37.0); MCV 92.6 fL (80.0-100.0); Mean Platelet Volume 8.8; Monocytes # (A) 0.4 k/uL (0-1.0); Monocytes % (A) 4 %; Neutrophils # (A) 7.2 k/uL (1.3-7.7); Neutrophils % (A) 86 %; Platelet Count 173 k/uL (150-450); Poikilocytosis Slight; RBC 2.98 m/uL (3.80-5.40); RDW 16.7 % (11.5-15.5); WBC 8.4 k/uL (3.8-10.6)
[2021-05-10] MEDS: carvediloL 6.25 MG TAB PO SCH ×2 (06:41→17:40)
[2021-05-10] MEDS: PANTOPRAZOLE 40 MG TABLET PO SCH (06:41)
[2021-05-10] MEDS ORDERED: bisacodyL 5 MG TABLET.DR PO STA (07:54)
[2021-05-10 08:12] LABS: Anisocytosis Slight; Basophils % (A) 0 %; Eosinophils # (A) 0.1 k/uL (0-0.7); Eosinophils % (A) 2 %; HCT 27.6 % (34.0-46.0); HGB 9.3 gm/dL (11.4-16.0); Lymphocytes # (A) 0.6 k/uL (1.0-4.8); Lymphocytes % (A) 7 %; MCH 31.3 pg (25.0-35.0); MCHC 33.7 g/dL (31.0-37.0); MCV 92.7 fL (80.0-100.0); Monocytes # (A) 0.4 k/uL (0-1.0); Monocytes % (A) 5 %; Neutrophils % (A) 85 %; Platelet Count 176 k/uL (150-450); Poikilocytosis Slight; RBC 2.98 m/uL (3.80-5.40); RDW 16.8 % (11.5-15.5); WBC 8.3 k/uL (3.8-10.6)
[2021-05-10 08:32] LABS: Albumin 2.9 g/dL (3.5-5.0); Calcium 8.8 mg/dL (8.4-10.2); Potassium 4.1 mmol/L (3.5-5.1); Total Protein 5.2 g/dL (6.3-8.2)
[2021-05-10] MEDS: SACUBITRIL/VALSARTAN 24 MG-26 MG TABLET PO SCH ×2 (09:19→21:16)
[2021-05-10] MEDS: POTASSIUM CHLORIDE ER 20 MEQ TAB.ER PO SCH (09:19)
[2021-05-10] MEDS: AMIODARONE 200 MG TAB PO SCH ×2 (09:19→21:16)
[2021-05-10] MEDS: SPIRONOLACTONE 25 MG TAB PO SCH (09:19)
[2021-05-10] MEDS: LATANOPROST 0.005% OPHTH DROPS 2.5 ML BTL LEFT EYE SCH (09:20)
[2021-05-10] MEDS: MAGNESIUM OXIDE 400 MG TAB PO SCH ×2 (09:20→21:16)
[2021-05-10] MEDS: BRIMONIDINE TARTRATE 0.2% DROPS 5 ML BTL LEFT EYE SCH ×2 (09:21→21:18)
[2021-05-10] MEDS: TIMOLOL 0.5% OPHTH DROPS 5 ML BTL LEFT EYE SCH ×2 (09:23→21:17)
[2021-05-10] MEDS: prednisoLONE ACETATE 1% OPHTH DROPS 5 ML BTL RIGHT EYE SCH (09:24)
[2021-05-10] MEDS ORDERED: ONDANSETRON 4 MG/2 ML VIAL IVP PRN (09:32)
[2021-05-10] MEDS: CYANOCOBALAMIN 1,000 MCG/ML 1 ML VIAL IM SCH (09:33)
--- NOTE | 2021-05-10 12:18 | P.PN ---
Subjective Progress Note Date: 05/10/21 Hernan Contreras, is a 75-year-old female presented to [facility] emergency room with a chief complaint of dizziness, patient stated that she went to have a blood test at Dr. Cifuentes's office when she returned home she was feeling very dizzy and she fell down to her knees, she was helped to a chair by her family, she continued to feel dizzy, she describes her head floating in front of her, she describes difficulty looking to the sides due to feeling dizzy and feeling nauseated . She was evaluated in the emergency room, vital examination on presentation revealed a temperature of 98.6 pulse 60 respiration 20 blood pressure 119/52 pulse ox 99% on room air. Laboratory data in the emergency room revealed a white blood count of 7.8 hemoglobin 8.0 and a platelet count of 2:30 sodium 132 potassium 4.4 chloride 105 CO2 19 BUN 21 creatinine 1.02 troponin level 0.024 testing in the emergency room included an EKG that revealed a sinus rhythm with first-degree AV block and right bundle branch block and T-wave abnormality in the inferior leads chest x-ray revealed no acute abnormality, computed tomography scan of the brain revealed no acute hemorrhage or mass affect. Patient was admitted to telemetry floor for further evaluation, carotid Doppler was ordered, cardiology consultation was requested, gastroenterology consultation was requested in regard to anemia. Patient was recently admitted to [facility] after having a cardiac arrest and having her defibrillator firing, at that time she was having hypokalemia, patient has a known history of acute systolic congestive heart failure with ejection fraction of 25-30% she has underlying history of ventricular tachycardia and had an AICD placed in February 2021, she has a history of coronary artery disease with recent angioplasty and stent placement, she has a history of hypertension, hyperlipidemia, and a previous history of colon cancer. On 05/09/2021 patient alert and oriented 3. Hemoglobin today 5.9. 1 unit of PRBCs ordered. GI services are following with possible plans of endoscopic exams. Cardiology services are also following 2-D echo has been ordered. Brilinta and eliquis on hold. Carotid ultrasound completed showing no significant flow-limiting stenosis.Patient denies any nausea or vomiting. Patient denies any dark stool. Patient denies any urinary burning or frequency. Patient received IV Lasix 20 mg after each unit On 05/10/2021 Patient was seen and examined on the medical floor, he is alert and oriented x 3 in no distress, he denies any complaints there is no fever or chills no headache or dizziness no chest pain no shortness of breath no palpitation no cough no nausea or vomiting no abdominal pain no diarrhea no blood in the stools no burning with urination no frequency or urgency and no hematuria, there is no weakness or numbness in any of the extremities no change in vision speech or gait. Hemoglobin is up to 9.3 after 2 units of red blood transfusion, EGD and colonos copy are scheduled for tomorrow to assess for any source of bleeding. Objective - Vital Signs Vital signs: Vital Signs Temp 97.9 F 05/10/21 08:00 Pulse 88 05/10/21 08:00 Resp 16 05/10/21 08:00 BP 124/59 05/10/21 08:00 Pulse Ox 98 05/10/21 08:00 Intake & Output 05/09/21 05/10/21 05/10/21 18:59 06:59 18:59 Intake Total 550 550 240 Output Total 980 200 Balance 550 -430 40 Weight 68.5 kg Intake: Oral 240 240 240 Blood Product 310 310 Rc As-1 Unit 310 [id number] Rc As-1 Unit 0 310 [id number] Output: Urine 580 200 Stool 400 Other: Voiding Method Bedside Commode External Catheter External Catheter # Voids 2 2 # Bowel Movements 1 1 - Exam In general patient is alert and oriented x 3 in no distress HEENT head normocephalic and atraumatic Neck is supple no JVD no goiter no lymphadenopathy no carotid bruit Chest examination is clear to auscultation no crackles no wheezing Cardiac exam reveals regular heart sounds S1 and S2 no gallops no murmurs Abdomen is soft nontender no organomegaly with normal bowel sounds Extremity exam reveals no edema no cyanosis or clubbing Neurological examination reveals no gross focal deficits - Labs CBC & Chem 7: 05/10/21 07:05 05/10/21 07:05 Labs: Abnormal Lab Results - Last 24 Hours (Table) 05/07/21 05/09/21 05/09/21 Range/Units 16:05 11:36 11:36 RBC (3.80-5.40) m/uL Hgb (11.4-16.0) gm/dL Hct (34.0-46.0) % RDW (11.5-15.5) % Lymphocytes # (1.0-4.8) k/uL Retic Count 3.6 H 3.59 H (0.5-2.0) % Sodium (137-145) mmol/L BUN (7-17) mg/dL Creatinine (0.52-1.04) mg/dL Glucose (74-99) mg/dL Total Protein (6.3-8.2) g/dL Albumin (3.5-5.0) g/dL Crossmatch See Detail 05/10/21 05/10/21 05/10/21 Range/Units 01:26 07:05 07:05 RBC 2.98 L 2.98 L (3.80-5.40) m/uL Hgb 9.4 L 9.3 L (11.4-16.0) gm/dL Hct 27.6 L 27.6 L (34.0-46.0) % RDW 16.7 H 16.8 H (11.5-15.5) % Lymphocytes # 0.6 L 0.6 L (1.0-4.8) k/uL Retic Count (0.5-2.0) % Sodium 132 L (137-145) mmol/L BUN 20 H (7-17) mg/dL Creatinine 1.06 H (0.52-1.04) mg/dL Glucose 109 H (74-99) mg/dL Total Protein 5.2 L (6.3-8.2) g/dL Albumin 2.9 L (3.5-5.0) g/dL Crossmatch Assessment and Plan Plan: 1. Dizziness and lightheadedness, cause is unclear could be related to inner ear vertigo, Antivert was ordered, will check carotid Doppler 2. Episode of presyncope with falling down to her knees at home prior to presentation 3. Anemia hemoglobin down to 8.0 her hemoglobin was 10.5 on 04/20/2021 patient is maintained on Eliquis and Brillinta, gastroenterology consultation was requ ested stool Hemoccult was ordered. Hemoglobin 5.9. 2 unit of PRBCs given yesterday, hemoglobin is up to 9.3 gastroenterology are following and planning for EGD and colonoscopy tomorrow, Brillinta is continued due to recent stent placement, Eliquis is on hold at this time. Will check iron profile, vitamin B12 and folate levels and replace if needed 4. Underlying history of coronary artery disease, EKG is abnormal and first troponin level is slightly elevated, will check troponin again, cardiology consult was requested 5. Underlying history of cardiomyopathy with ejection fraction of 25-30% 6. Hypotension which may be contributing to patient feeling of dizziness cardiology consultation was requested to reevaluate cardiac medications 7. Underlying history of hyperlipidemia maintained on Pravachol 80 mg once daily Home medications reviewed and reordered Cardiology and gastroenterology consultation requested Carotid Doppler completed showing no flow-limiting stenosis Echocardiogram was done recently, no need to repeat at this time Blood transfusion ordered. Patient to receive IV Lasix after transfusion Possible endoscopic exam per GI services Will follow closely
[2021-05-10] MEDS: ASPIRIN 81 MG PO SCH (12:30)
[2021-05-10] MEDS: TICAGRELOR 90 MG TAB PO SCH ×2 (12:30→21:16)
--- NOTE | 2021-05-10 12:48 | P.PN ---
Subjective Progress Note Date: 05/10/21 Principal diagnosis: Anemia The patient is seen and examined lying in bed. She is status post 1 unit of PRBC transfusion from yesterday and her repeat hemoglobin this morning was 9.1. Patient states she did have a bowel movement this morning but she was unsure if there was any blood or black stool. She denies any abdominal pain, nausea, or vomiting. Yesterday her Brilinta and Eliquis were put on hold due to her drop in hemoglobin. Plan is for EGD and colonoscopy tomorrow. Ear subsequently contacted gastroenterology and stated that patient had 2 bowel loose bowel move ments with multiple blood clots. Objective - Vital Signs Vital signs: Vital Signs Temp 98.4 F 05/10/21 03:37 Pulse 60 05/10/21 03:37 Resp 16 05/10/21 03:37 BP 106/67 05/10/21 03:37 Pulse Ox 96 05/10/21 03:37 Intake & Output 05/09/21 05/10/21 05/10/21 18:59 06:59 18:59 Intake Total 550 550 240 Output Total 980 200 Balance 550 -430 40 Weight 68.5 kg Intake: Oral 240 240 240 Blood Product 310 310 Rc As-1 Unit 310 [id number] Rc As-1 Unit 0 310 [id number] Output: Urine 580 200 Stool 400 Other: Voiding Method Bedside Commode External Catheter # Voids 2 2 # Bowel Movements 1 1 - Exam General appearance: The patient is alert, oriented, appears in no acute distress. HET: Head is normocephalic and atraumatic. Conjunctiva pink. Sclera anicteric. Neck: Supple without lymphadenopathy. Abdomen: Soft, nontender, nondistended with bowel sounds. No guarding or rigidity. Extremities: Normal skin color and turgor. No pedal edema Skin: No rashes, no jaundice Neurological: No focal deficits. Alert and oriented 3. - Labs CBC & Chem 7: 05/10/21 07:05 05/10/21 07:05 Labs: Abnormal Lab Results - Last 24 Hours (Table) 05/07/21 05/09/21 05/09/21 Range/Units 16:05 04:45 04:45 RBC 1.93 L (4.10-5.20) X 10*6/uL Hgb 5.9 L* (12.0-15.0) g/dL Hct 18.7 L* (37.2-46.3) % MCHC 31.6 L (32.0-37.0) g/dL RDW 17.6 H (11.5-14.5) % Lymphocytes # 0.45 L (0.90-5.00) X 10*3/uL Retic Count 3.6 H (0.5-2.0) % Sodium (137-145) mmol/L BUN (7-17) mg/dL Creatinine (0.52-1.04) mg/dL Est GFR (CKD-EPI)AfAm 50.5 L (60.0-200.0) Est GFR (CKD-EPI)NonAf 43.6 L (60.0-200.0) Glucose (74-99) mg/dL Calcium 8.6 L (8.7-10.3) mg/dL Total Protein 5.0 L (6.2-8.2) g/dL Albumin 3.30 L (3.80-4.90) g/dL Crossmatch 05/09/21 05/09/21 05/10/21 Range/Units 11:36 11:36 01:26 RBC 2.98 L (4.10-5.20) X 10*6/uL Hgb 9.4 L (12.0-15.0) g/dL Hct 27.6 L (37.2-46.3) % MCHC (32.0-37.0) g/dL RDW 16.7 H (11.5-14.5) % Lymphocytes # 0.6 L (0.90-5.00) X 10*3/uL Retic Count 3.59 H (0.5-2.0) % Sodium (137-145) mmol/L BUN (7-17) mg/dL Creatinine (0.52-1.04) mg/dL Est GFR (CKD-EPI)AfAm (60.0-200.0) Est GFR (CKD-EPI)NonAf (60.0-200.0) Glucose (74-99) mg/dL Calcium (8.7-10.3) mg/dL Total Protein (6.2-8.2) g/dL Albumin (3.80-4.90) g/dL Crossmatch See Detail 05/10/21 05/10/21 Range/Units 07:05 07:05 RBC 2.98 L (4.10-5.20) X 10*6/uL Hgb 9.3 L (12.0-15.0) g/dL Hct 27.6 L (37.2-46.3) % MCHC (32.0-37.0) g/dL RDW 16.8 H (11.5-14.5) % Lymphocytes # 0.6 L (0.90-5.00) X 10*3/uL Retic Count (0.5-2.0) % Sodium 132 L (137-145) mmol/L BUN 20 H (7-17) mg/dL Creatinine 1.06 H (0.52-1.04) mg/dL Est GFR (CKD-EPI)AfAm (60.0-200.0) Est GFR (CKD-EPI)NonAf (60.0-200.0) Glucose 109 H (74-99) mg/dL Calcium (8.7-10.3) mg/dL Total Protein 5.2 L (6.2-8.2) g/dL Albumin 2.9 L (3.80-4.90) g/dL Crossmatch Assessment and Plan (1) Normochromic normocytic anemia Narrative/Plan: C 75-year-old female with multiple medical comorbidities including coronary artery disease with history of chronic atrial fibrillation and recent cardiac arrest. Patient recently had a AICD placed in February of this year as well as recent cardiac stent placements done earlier this year with a history of colon cancer diagnosed about 5 years ago in [place]. At that time the patient underwent bowel resection without colostomy and chemotherapy. Patient states that she went into remission however the cancer returned and she was restarted with chemotherapy. The chemotherapy was stopped approximately 4 months ago and follows with Dr. Cobos. She presented to the emergency department with complaints of dizziness, weakness, and syncope. Cardiology is following closely, she follows with a womens health nurse practitioner out of [facility]. The patient denies any signs of GI bleed, no hematemesis or coffee-ground emesis, no black stools or blood in her stool. She denies abdominal pain. She states that she has nausea but no vomiting. No complaints of recent weight loss, appetite has been decreased but is eating. Her last colonoscopy was reported approximately 5 years ago prior to her diagnosis of colon cancer. She has not had a repeat colonoscopy since. She currently is taking Brilinta and Eliquis, she denies any NSAID use. She has no history of peptic ulcer disease and no previous EGD. Hematology will be consult that, we'll need to discuss with cardiology regarding possibility of stopping Eliquis and Brilinta and will need cardiac clearance for any endoscopic evaluation. Patient presents with a normochromic normocytic anemia, this may also be related to anemia of chronic disease. Iron studies will be ordered. Current Visit: Yes Status: Acute Code(s): D64.9 - ANEMIA, UNSPECIFIED SNOMED Code(s): 43323373 (2) History of colon cancer Current Visit: No Status: Acute Code(s): Z85.038 - PERSONAL HISTORY OF MALIGNANT NEOPLASM OF LARGE INTESTINE SNOMED Code(s): 242883840 (3) Coronary artery disease Current Visit: Yes Status: Acute Code(s): I25.10 - ATHSCL HEART DISEASE OF [place] CORONARY ARTERY W/O ANG PCTRS SNOMED Code(s): 69865300 (4) History of chronic atrial fibrillation Current Visit: Yes Status: Acute Code(s): Z86.79 - PERSONAL HISTORY OF OTHER DISEASES OF THE CIRCULATORY SYSTEM SNOMED Code(s): 559028148 (5) Elevated troponin Current Visit: No Status: Acute Code(s): R77.8 - OTHER SPECIFIED ABNORMALITIES OF PLASMA PROTEINS SNOMED Code(s): 594816553 Plan: 1. Continue symptomatic and supportive care 2. Clear liquid diet, nothing by mouth after midnight 3. Plan is for EGD and colonoscopy tomorrow. 4. Bowel prep this afternoon 5. Hematology on consult, appreciate the recommendations 6. Daily CBC, transfuse for hemoglobin less than 7 7. Repeat CBC at 1800 8. Discussed with patient and her recommendation is to proceed with EGD and colonoscopy to evaluate for possible GI source for anemia Friday. Continue to hold Eliquis. Patient may have aspirin or Brilinta if needed for recent stent placments, as no biopsies will be completed at this time. 9. Cardiology to clear patient for EGD and colonoscopy Thank you for this consultation, we will continue to follow. Dr. Sumner I agree with the dictator's note, documented as a scribe by Valerie Izaguirre.
[2021-05-10] MEDS ORDERED: PEG 3350-NA SULF,BICARB,CL/KCL 4,000 ML BOTTLE PO ONE (16:00)
--- NOTE | 2021-05-10 16:05 | PN ---
PROGRESS NOTE Mrs. Contreras is a 75-year-old female with known history of coronary artery disease status post myocardial infarction in November of this year, severe ischemic cardiomyopathy who had prior episode of recurrent ventricular tachycardia, and ICD implantation. She had a stroke. She presented to the hospital with symptoms of dizziness, weakness and had evidence of GI bleeding. She is feeling reasonably well this morning. She denies any dizziness, palpitation. She denies any nausea. She still feels dizzy sometime, but no arrhythmia on the monitor. She continues to be in sinus mechanism. There is no evidence of recurrent ventricular tachycardia. She had an echocardiogram that showed a severely impaired left ventricular systolic function with segmental wall motion abnormality that was documented in the past. She continues to be at this time on amiodarone 200 mg twice a day, carvedilol 6.25 mg twice a day, magnesium 400 mg twice a day, potassium 10 mEq daily and Entresto 24-26 mg twice a day and spironolactone 50 mg daily. PHYSICAL EXAMINATION: Blood pressure 124/59 with a heart rate in the 50s. Lungs: Clear. Heart regular rate and rhythm, S1, S2. No S3. No rub with a systolic murmur. No diastolic murmur. Abdomen: Soft nontender. Extremities: No edema. LAB DATA: Hemoglobin up to 9.3. Her BUN and creatinine 21 and 0.06. Her potassium is 4.1. Her magnesium was 2.1. IMPRESSION: 1. Gastrointestinal bleeding, her anticoagulation is on hold including Brilinta and the Eliquis. 2. History of severe ischemic cardiomyopathy status post ICD implantation with prior episode of ventricular tachycardia. 3. Status post stenting of the LAD in a setting of myocardial infarction in November of this year in [place]. 4. History of stroke. 5. Prior episode of hypokalemia. RECOMMENDATIONS: From the cardiac standpoint, we will await the input of the GI service regarding re- initiating treatment with anticoagulation at least aspirin and probably Plavix instead of the Brilinta. The patient was started on the Eliquis with the possibility that she may have had an apical thrombus that caused her stroke, although we have no documentation of that and there is no documentation of atrial fibrillation. Depending on her progress, further recommendations will be made. MMODL / IJN: [id number] /
[2021-05-10] MEDS ORDERED: RX INFO: IV CONTRAST WAS GIVEN 1 EACH MISC MISCELLANE PRN (16:18)
--- NOTE | 2021-05-10 16:18 | P.PN ---
Subjective Progress Note Date: 05/10/21 Principal diagnosis: Symptomatic Anemia COmponent of B12 deficiency, B12 140. Supplement added. Hemoglobin improved today after transfusions of PRBC. She is nauseated during evaluation states she has been nauseated, dizzy and unsteady for weeka. Objective - Vital Signs Vital signs: Vital Signs Temp 98.4 F 05/10/21 03:37 Pulse 60 05/10/21 03:37 Resp 16 05/10/21 03:37 BP 106/67 05/10/21 03:37 Pulse Ox 96 05/10/21 03:37 Intake & Output 05/09/21 05/10/21 05/10/21 18:59 06:59 18:59 Intake Total 550 550 240 Output Total 980 200 Balance 550 -430 40 Weight 68.5 kg Intake: Oral 240 240 240 Blood Product 310 310 Rc As-1 Unit 310 [id number] Rc As-1 Unit 0 310 [id number] Output: Urine 580 200 Stool 400 Other: Voiding Method Bedside Commode External Catheter # Voids 2 2 # Bowel Movements 1 1 - Exam - Constitutional General appearance: cooperative, no acute distress - EENT Eyes: EOMI ENT: hard of hearing, NA/AT - Neck Neck: normal ROM - Respiratory Respiratory: bilateral: diminished - Cardiovascular Rhythm: irregularly irregular - Gastrointestinal General gastrointestinal: soft, tenderness - Integumentary Integumentary: pale - Musculoskeletal Musculoskeletal: generalized weakness - Psychiatric poor historian - Labs CBC & Chem 7: 05/10/21 07:05 05/10/21 07:05 Labs: Abnormal Lab Results - Last 24 Hours (Table) 05/07/21 05/09/21 05/09/21 Range/Units 16:05 04:45 04:45 RBC 1.93 L (4.10-5.20) X 10*6/uL Hgb 5.9 L* (12.0-15.0) g/dL Hct 18.7 L* (37.2-46.3) % MCHC 31.6 L (32.0-37.0) g/dL RDW 17.6 H (11.5-14.5) % Lymphocytes # 0.45 L (0.90-5.00) X 10*3/uL Retic Count 3.6 H (0.5-2.0) % Sodium (137-145) mmol/L BUN (7-17) mg/dL Creatinine (0.52-1.04) mg/dL Est GFR (CKD-EPI)AfAm 50.5 L (60.0-200.0) Est GFR (CKD-EPI)NonAf 43.6 L (60.0-200.0) Glucose (74-99) mg/dL Calcium 8.6 L (8.7-10.3) mg/dL Total Protein 5.0 L (6.2-8.2) g/dL Albumin 3.30 L (3.80-4.90) g/dL Crossmatch 05/09/21 05/09/21 05/10/21 Range/Units 11:36 11:36 01:26 RBC 2.98 L (4.10-5.20) X 10*6/uL Hgb 9.4 L (12.0-15.0) g/dL Hct 27.6 L (37.2-46.3) % MCHC (32.0-37.0) g/dL RDW 16.7 H (11.5-14.5) % Lymphocytes # 0.6 L (0.90-5.00) X 10*3/uL Retic Count 3.59 H (0.5-2.0) % Sodium (137-145) mmol/L BUN (7-17) mg/dL Creatinine (0.52-1.04) mg/dL Est GFR (CKD-EPI)AfAm (60.0-200.0) Est GFR (CKD-EPI)NonAf (60.0-200.0) Glucose (74-99) mg/dL Calcium (8.7-10.3) mg/dL Total Protein (6.2-8.2) g/dL Albumin (3.80-4.90) g/dL Crossmatch See Detail 05/10/21 05/10/21 Range/Units 07:05 07:05 RBC 2.98 L (4.10-5.20) X 10*6/uL Hgb 9.3 L (12.0-15.0) g/dL Hct 27.6 L (37.2-46.3) % MCHC (32.0-37.0) g/dL RDW 16.8 H (11.5-14.5) % Lymphocytes # 0.6 L (0.90-5.00) X 10*3/uL Retic Count (0.5-2.0) % Sodium 132 L (137-145) mmol/L BUN 20 H (7-17) mg/dL Creatinine 1.06 H (0.52-1.04) mg/dL Est GFR (CKD-EPI)AfAm (60.0-200.0) Est GFR (CKD-EPI)NonAf (60.0-200.0) Glucose 109 H (74-99) mg/dL Calcium (8.7-10.3) mg/dL Total Protein 5.2 L (6.2-8.2) g/dL Albumin 2.9 L (3.80-4.90) g/dL Crossmatch Assessment and Plan (1) Metastatic colorectal cancer Current Visit: Yes Status: Acute Code(s): C19 - MALIGNANT NEOPLASM OF RECTOSIGMOID JUNCTION SNOMED Code(s): 04115998 (2) Anemia Current Visit: Yes Status: Acute Code(s): D64.9 - ANEMIA, UNSPECIFIED SNO MED Code(s): 272344303 (3) Vertigo Current Visit: Yes Status: Acute Code(s): R42 - DIZZINESS AND GIDDINESS SNOMED Code(s): 936004562 Plan: Assessment and Recommendations: Symptomatic Anemia: - Need to assess for bleeding, recurrent or progressive cancer, hemolysis - GI Eval - Iron studies prior to transfusion - Repeat CBC in am Metastatic Colon Cancer: - Treatment interrupted and restaging interrupted with need for cardiac interventions over the past 2 months - pENDING CEA - Restaging PET at discharge (originally scheduled in February) Plan: - Nausea and dizzy not improved after blood transfusion, she has had a delay in treatment and restaging - Check CT brAIN
--- NOTE | 2021-05-10 17:09 | CT ---
EXAMINATION TYPE: CT brain w con DATE OF EXAM: 05/10/2021 COMPARISON: 05/07/2021. HISTORY: Weakness, dizziness and headache CT DLP: 1099.4 mGycm Automated exposure control for dose reduction was used. CONTRAST: CT scan of the head is performed with IV Contrast, patient injected with 100 mL of Isovue 300. FINDINGS: There is no abnormal enhancing mass or midline shift identified. The ventricles and sulci are within normal limits in size. The globes are intact and the visualized sinuses are clear. IMPRESSION: Negative contrast enhanced head CT exam.
[2021-05-10 17:19] LABS: Folate, Serum 8.1 ng/mL
[2021-05-10 17:27] LABS: % Iron Saturation 8.92 (12.00-45.00)
[2021-05-10 17:28] LABS: Ferritin 78.3 ng/mL (10.0-291.0)
[2021-05-10 18:02] LABS: Anisocytosis Slight; HCT 31.5 % (34.0-46.0); HGB 10.8 gm/dL (11.4-16.0); MCHC 34.3 g/dL (31.0-37.0); MCV 93.4 fL (80.0-100.0); Mean Platelet Volume 8.9; Platelet Count 261 k/uL (150-450); Poikilocytosis Slight; RBC 3.37 m/uL (3.80-5.40); RDW 16.7 % (11.5-15.5); WBC 13.2 k/uL (3.8-10.6)
[2021-05-10] MEDS: PROCHLORPERAZINE 5 MG TAB PO PRN (21:04)
[2021-05-10] MEDS: PRAVASTATIN SODIUM 80 MG TAB PO SCH (21:17)
[2021-05-11] MEDS: PANTOPRAZOLE 40 MG TABLET PO SCH (06:44)
[2021-05-11] MEDS: carvediloL 6.25 MG TAB PO SCH ×2 (06:44→15:41)
[2021-05-11 08:06] LABS: Albumin 2.9 g/dL (3.5-5.0); Calcium 8.9 mg/dL (8.4-10.2); Potassium 4.3 mmol/L (3.5-5.1); Total Bilirubin 0.8 mg/dL (0.2-1.3); Total Protein 5.2 g/dL (6.3-8.2)
[2021-05-11 08:22] LABS: Anisocytosis Slight; Basophils % (A) 0 %; Eosinophils # (A) 0.1 k/uL (0-0.7); Eosinophils % (A) 2 %; HCT 24.7 % (34.0-46.0); Lymphocytes # (A) 0.6 k/uL (1.0-4.8); Lymphocytes % (A) 8 %; MCH 31.5 pg (25.0-35.0); MCHC 34.5 g/dL (31.0-37.0); MCV 91.4 fL (80.0-100.0); Mean Platelet Volume 8.5; Monocytes # (A) 0.4 k/uL (0-1.0); Monocytes % (A) 5 %; Neutrophils % (A) 84 %; Platelet Count 224 k/uL (150-450); Poikilocytosis Slight; RDW 17.2 % (11.5-15.5); WBC 7.1 k/uL (3.8-10.6)
[2021-05-11 08:28] LABS: HGB 8.5 gm/dL (11.4-16.0)
[2021-05-11] MEDS: BRIMONIDINE TARTRATE 0.2% DROPS 5 ML BTL LEFT EYE SCH ×2 (09:17→20:32)
[2021-05-11] MEDS: AMIODARONE 200 MG TAB PO SCH ×2 (09:17→20:32)
[2021-05-11] MEDS: SPIRONOLACTONE 25 MG TAB PO SCH (09:17)
[2021-05-11] MEDS: POTASSIUM CHLORIDE ER 20 MEQ TAB.ER PO SCH (09:17)
[2021-05-11] MEDS: MAGNESIUM OXIDE 400 MG TAB PO SCH ×2 (09:17→20:34)
[2021-05-11] MEDS: TIMOLOL 0.5% OPHTH DROPS 5 ML BTL LEFT EYE SCH ×2 (09:18→20:34)
[2021-05-11] MEDS: prednisoLONE ACETATE 1% OPHTH DROPS 5 ML BTL RIGHT EYE SCH (09:18)
[2021-05-11] MEDS: CYANOCOBALAMIN 1,000 MCG/ML 1 ML VIAL IM SCH (09:22)
[2021-05-11] MEDS: SACUBITRIL/VALSARTAN 24 MG-26 MG TABLET PO SCH ×2 (09:22→20:34)
--- NOTE | 2021-05-11 10:16 | P.PN ---
Subjective Progress Note Date: 05/11/21 Hernan Contreras, is a 75-year-old female presented to [facility] emergency room with a chief complaint of dizziness, patient stated that she went to have a blood test at Dr. Cifuentes's office when she returned home she was feeling very dizzy and she fell down to her knees, she was helped to a chair by her family, she continued to feel dizzy, she describes her head floating in front of her, she describes difficulty looking to the sides due to feeling dizzy and feeling nauseated . She was evaluated in the emergency room, vital examination on presentation revealed a temperature of 98.6 pulse 60 respiration 20 blood pressure 119/52 pulse ox 99% on room air. Laboratory data in the emergency room revealed a white blood count of 7.8 hemoglobin 8.0 and a platelet count of 2:30 sodium 132 potassium 4.4 chloride 105 CO2 19 BUN 21 creatinine 1.02 troponin level 0.024 testing in the emergency room included an EKG that revealed a sinus rhythm with first-degree AV block and right bundle branch block and T-wave abnormality in the inferior leads chest x-ray revealed no acute abnormality, computed tomography scan of the brain revealed no acute hemorrhage or mass affect. Patient was admitted to telemetry floor for further evaluation, carotid Doppler was ordered, cardiology consultation was requested, gastroenterology consultation was requested in regard to anemia. Patient was recently admitted to [facility] after having a cardiac arrest and having her defibrillator firing, at that time she was having hypokalemia, patient has a known history of acute systolic congestive heart failure with ejection fraction of 25-30% she has underlying history of ventricular tachycardia and had an AICD placed in February 2021, she has a history of coronary artery disease with recent angioplasty and stent placement, she has a history of hypertension, hyperlipidemia, and a previous history of colon cancer. On 05/09/2021 patient alert and oriented 3. Hemoglobin today 5.9. 1 unit of PRBCs ordered. GI services are following with possible plans of endoscopic exams. Cardiology services are also following 2-D echo has been ordered. Brilinta and eliquis on hold. Carotid ultrasound completed showing no significant flow-limiting stenosis.Patient denies any nausea or vomiting. Patient denies any dark stool. Patient denies any urinary burning or frequency. Patient received IV Lasix 20 mg after each unit On 05/10/2021 Patient was seen and examined on the medical floor, he is alert and oriented x 3 in no distress, he denies any complaints there is no fever or chills no headache or dizziness no chest pain no shortness of breath no palpitation no cough no nausea or vomiting no abdominal pain no diarrhea no blood in the stools no burning with urination no frequency or urgency and no hematuria, there is no weakness or numbness in any of the extremities no change in vision speech or gait. Hemoglobin is up to 9.3 after 2 units of red blood transfusion, EGD and colonos copy are scheduled for tomorrow to assess for any source of bleeding. On 05/11/2020 Patient is alert and oriented 3. Hemoglobin 8.5. Plans for EGD and colonoscopy today. Patient did report bleeding with prep for colonoscopy. Patient denies any abdominal discomfort. Patient denies any nausea or vomiting. Patient denies any burning with urination. Objective - Vital Signs Vital signs: Vital Signs Temp 97.7 F 05/11/21 09:15 Pulse 63 05/11/21 09:15 Resp 16 05/11/21 09:15 BP 104/54 05/11/21 09:15 Pulse Ox 100 05/11/21 09:15 Intake & Output 05/10/21 05/11/21 05/11/21 18:59 06:59 18:59 Intake Total 240 Output Total 850 3430 Balance -610 -3430 Weight 68.1 kg Intake: Oral 240 Output: Urine 200 450 Stool 650 2980 Other: Voiding Method External Catheter External Catheter # Voids 2 # Bowel Movements 1 1 - Exam In general patient is alert and oriented x 3 in no distress HEENT head normocephalic and atraumatic Neck is supple no JVD no goiter no lymphadenopathy no carotid bruit Chest examination is clear to auscultation no crackles no wheezing Cardiac exam reveals regular heart sounds S1 and S2 no gallops no murmurs Abdomen is soft nontender no organomegaly with normal bowel sounds Extremity exam reveals no edema no cyanosis or clubbing Neurological examination reveals no gross focal deficits - Labs CBC & Chem 7: 05/11/21 07:35 05/11/21 07:21 Labs: Abnormal Lab Results - Last 24 Hours (Table) 05/09/21 05/09/21 05/09/21 Range/Units 11:36 11:36 11:36 WBC (3.8-10.6) k/uL RBC (3.80-5.40) m/uL Hgb (11.4-16.0) gm/dL Hct (34.0-46.0) % RDW (11.5-15.5) % Lymphocytes # (1.0-4.8) k/uL Sodium (137-145) mmol/L Carbon Dioxide (22-30) mmol/L BUN (7-17) mg/dL Creatinine (0.52-1.04) mg/dL Iron 29 L (50-170) ug/dL % Saturation 8.92 L (12.00-45.00) Lactate Dehydrogenase 301 H (120-246) U/L Total Protein (6.3-8.2) g/dL Albumin (3.5-5.0) g/dL Carcinoembryonic Ag 17.5 H (0.0-4.9) ng/mL Vitamin B12 127.0 L (200.0-944.0) pg/mL Methylmalonic Acid 0.57 H (<0.40) umol/L 05/10/21 05/11/21 05/11/21 Range/Units 17:50 07:21 07:35 WBC 13.2 H (3.8-10.6) k/uL RBC 3.37 L 2.70 L (3.80-5.40) m/uL Hgb 10.8 L 8.5 L D (11.4-16.0) gm/dL Hct 31.5 L 24.7 L (34.0-46.0) % RDW 16.7 H 17.2 H (11.5-15.5) % Lymphocytes # 0.6 L (1.0-4.8) k/uL Sodium 131 L (137-145) mmol/L Carbon Dioxide 20 L (22-30) mmol/L BUN 19 H (7-17) mg/dL Creatinine 1.06 H (0.52-1.04) mg/dL Iron (50-170) ug/dL % Saturation (12.00-45.00) Lactate Dehydrogenase (120-246) U/L Total Protein 5.2 L (6.3-8.2) g/dL Albumin 2.9 L (3.5-5.0) g/dL Carcinoembryonic Ag (0.0-4.9) ng/mL Vitamin B12 (200.0-944.0) pg/mL Methylmalonic Acid (<0.40) umol/L Assessment and Plan Plan: 1. Dizziness and lightheadedness, cause is unclear could be related to inner ear vertigo, Antivert was ordered, will check carotid Doppler 2. Episode of presyncope with falling down to her knees at home prior to presentation 3. Anemia hemoglobin down to 8.0 her hemoglobin was 10.5 on 04/20/2021 patient is maintained on Eliquis and Brillinta, gastroenterology consultation was requested stool Hemoccult was ordered. Hemoglobin 5.9. 2 unit of PRBCs given yesterday, hemoglobin is up to 9.3 gastroenterology are following and planning for EGD and colonoscopy tomorrow, Brillinta is continued due to recent stent placement, Eliquis is on hold at this time. Will check iron profile, vitamin B12 and folate levels and replace if needed 4. Underlying history of coronary artery disease, EKG is abnormal and first troponin level is slightly elevated, will check troponin again, cardiology consult was requested 5. Underlying history of cardiomyopathy with ejection fraction of 25-30% 6. Hypotension which may be contributing to patient feeling of dizziness cardiology consultation was requested to reevaluate cardiac medications 7. Underlying history of hyperlipidemia maintained on Pravachol 80 mg once daily Home medications reviewed and reordered Cardiology and gastroenterology consultation requested Carotid Doppler completed showing no flow-limiting stenosis Echocardiogram was done recently, no need to repeat at this time Status post 2 units of PRBCs Plans for cough be an EGD today 05/11/2021 Will follow closely
[2021-05-11 12:04] LABS: Anisocytosis Slight; HCT 24.8 % (34.0-46.0); HGB 8.3 gm/dL (11.4-16.0); MCH 30.9 pg (25.0-35.0); MCHC 33.5 g/dL (31.0-37.0); MCV 92.3 fL (80.0-100.0); Mean Platelet Volume 8.5; Platelet Count 227 k/uL (150-450); RBC 2.69 m/uL (3.80-5.40); RDW 17.1 % (11.5-15.5); WBC 7.1 k/uL (3.8-10.6)
--- NOTE | 2021-05-11 12:11 | PN ---
PROGRESS NOTE Mrs. Contreras is a 75-year-old female who sustained an acute myocardial infarction in [place] in November, underwent stenting of the LAD, had severe cardiomyopathy and a subsequent episode of ventricular tachycardia. She underwent placement of an ICD. She had a CVA, treated with tPA with resolution of her symptoms. She was admitted with significant anemia and suggestion of GI bleeding. She is scheduled to undergo upper and lower endoscopy today. She is feeling well. Her dizziness is better. She is denying any chest pain. Her breathing is stable. She denies any dizziness or palpitation. She denies any nausea. She denies any cough or fever. On the monitor, she is in sinus mechanism. She continues to be on amiodarone 200 mg twice a day, aspirin 81 mg daily, carvedilol 6.25 mg twice a day, magnesium 400 mg twice a day, pravastatin 80 mg daily, Entresto 24-26 mg twice a day, Brilinta 90 mg twice a day, and spironolactone 50 mg daily. PHYSICAL EXAMINATION: Blood pressure 112/60 with a heart rate in the 60s. LUNGS: Clear. HEART: Regular rate and rhythm. S1, S2. No S3. No rub appreciated, with a systolic murmur at the base. No diastolic murmur. No rub. ABDOMEN: Soft, nontender. EXTREMITIES: No edema. LAB DATA: Lab data revealed a hemoglobin of 8.5, which dropped from 10.8 yesterday. Her BUN and creatinine were 19 and 1.06. IMPRESSION: 1. Severe anemia with possible gastrointestinal bleeding. Workup in progress. 2. History of severe ischemic cardiomyopathy. 3. Status post stenting of the LAD in November of this year. 4. Recurrent ventricular tachycardia with ICD implantation. 5. Recent stroke. 6. History of colorectal cancer. RECOMMENDATIONS: From the cardiac standpoint, we will await the results of her endoscopy. At this time we will continue her on aspirin and Brilinta. The patient had no documented history of atrial fibrillation, and the anticoagulation was started at [facility] for possible apical thrombus causing the stroke, although never visualized on her echocardiogram. Depending on her progress, further recommendations will be made. MMODL / IJN: [id number] /
[2021-05-11] MEDS: SODIUM FERRIC GLUCONAT-SUCROSE 125 MG in SODIUM CHLORIDE 0.9% 100 ML IVPB SCH (12:39)
[2021-05-11] MEDS ORDERED: LIDOCAINE 1% INJ 10MG/ML (20 ML MDV) ONE (14:41)
[2021-05-11] MEDS ORDERED: PHENYLEPHRINE-0.9% NACL SYG 1,000 MCG/10 ML SYRINGE ONE (14:41)
[2021-05-11] MEDS ORDERED: ePHEDrine SULFATE/0.9% NACL/PF 50 MG/5 ML SYRINGE IV ONE (14:41)
[2021-05-11] MEDS ORDERED: PROPOFOL 10 MG/ML 20 ML VIAL IV ONE (14:41)
[2021-05-11] MEDS ORDERED: IV FLUID CONTINUATION 1,000 ML IV ONE (15:11)
--- NOTE | 2021-05-11 15:27 | P.PCN ---
Date of Procedure: 05/11/21 Description of Procedure: Brief history: 75-year-old female with multiple medical comorbidities including coronary artery disease with history of chronic atrial fibrillation and recent cardiac arrest. Patient recently had a AICD placed in February of this year as well as recent cardiac stent placements done earlier this year with a history of colon cancer diagnosed about 5 years ago in [place]. At that time the patient underwent bowel resection without colostomy and chemotherapy. Patient states that she went into remission however the cancer returned and she was restarted with chemotherapy. The chemotherapy was stopped approximately 4 months ago and follows with Dr. Cobos. She presented to the emergency department with complaints of dizziness, weakness, and syncope. Cardiology is following closely, she follows with a manager of software out of [facility]. The patient denies any signs of GI bleed, no hematemesis or coffee-ground emesis, no black stools or blood in her stool. She denies abdominal pain. She states that she has nausea but no vomiting. No complaints of recent weight loss, appetite has been decreased but is eating. Her last colonoscopy was reported approximately 5 years ago prior to her diagnosis of colon cancer. She has not had a repeat colonoscopy since. She currently is taking Brilinta and Eliquis, she denies any NSAID use. She has no history of peptic ulcer disease and no previous EGD. Hematology will be consult that, we'll need to discuss with cardiology regarding possibility of stopping Eliquis and Brilinta and will need cardiac clearance for any endoscopic evaluation. Patient presents with a normochromic normocytic anemia, this may also be related to anemia of chronic disease. Iron studies will be ordered. Procedure performed: Esophagogastroduodenoscopy with biopsy Colonoscopy Estimated blood loss: Minimal. Preoperative diagnosis: Anemia, melena Anesthesia: [facility] [place] Procedure: After informed consent was obtained from the patient was brought into the endoscopy unit and IV sedation was administered by anesthesia under continuous monitoring. Initially upper endoscopy was done. The Olympus GF 190 video endoscope was inserted into the mouth and esophagus intubated without any difficulty and was gradually advanced into the stomach and duodenum and carefully examined. The bulb and second part of the duodenum appeared normal, with biopsies taken. The scope was then withdrawn into the stomach adequately insufflated with air and upon careful examination the antrum and body, cardia and fundus appeared normal, except for some mild scattered erythema suggestive of mild gastritis with biopsies taken. There are also a few diminutive fundic gland polyps. The scope was then withdrawn into the esophagus. The GE junction was located at 36 cm to the incisors. It appeared regular with no erythema erosions or ulcerations. Rest of the esophagus appeared normal. Patient tolerated the procedure well. At this time the patient continued to remain sedation. Initial digital rectal examination was normal. Olympus CF 190 video colonoscope was then inserted into the rectum and gradually advanced to the anastomotic site from prior right hemicolectomy. Careful examination was performed as the scope was gradually being withdrawn. The prep was excellent. The anastomotic site, transverse colon, descending colon, sigmoid colon and rectum appeared normal, with the scope passed into the small bowel which also appeared intact. There was dark hemolyzed blood throughout the small bowel which was visualized as well as the entire colon. The patient had moderate herr diverticulosis with multiple small and large mouth diverticula throughout the colon. Retroflexion was performed in the rectum and no lesions were noted, low-grade internal hemorrhoids. Patient tolerated the procedure well. Impression: 1. No active bleeding, old blood, or pathology to explain anemia on EGD. Mild gastritis. Biopsies of the duodenum, antrum and body. 2. Old hemolyzed blood throughout the entire visualized colon as well as into the small bowel past the anastomotic site. Prior partial colectomy/right hemicolectomy with intact anastomosis. Moderate pandiverticulosis. Internal hemorrhoids. Recommendations: Findings of this examination were discussed with the patient as well as her and daughter. At this time would recommend continuing to hold anticoagulation therapy for another 72 hours. Okay to continue Brilinta in the setting of recent stent placement. Continue to monitor stool output as well as hemoglobin and hematocrit and transfuse as needed. Unclear etiology of the bleed, may be secondary to small bowel bleed from angiectasia, metastatic disease or may be diverticular in nature. Recommendation is that if any further bleeding occurs patient be transferred to tertiary center for CT angiography and possible coiling.
[2021-05-11] MEDS: ASPIRIN 81 MG PO SCH (15:41)
[2021-05-11] MEDS: TICAGRELOR 90 MG TAB PO SCH ×2 (15:41→20:35)
[2021-05-11] MEDS: IOPAMIDOL CONTRAST (ORAL USE) VIAL PO PRN ×2 (16:45→17:45)
--- NOTE | 2021-05-11 20:25 | P.PN ---
Subjective Progress Note Date: 05/11/21 Principal diagnosis: Symptomatic Anemia CEA is increased, concerning for progression of Colon cancer. CT head negative. Iron and B12 decreased - Supplement ordered. GI is further evaluating today with EGD and COlonoscopy. Restaging CTs have been ordered. Objective - Vital Signs Vital signs: Vital Signs Temp 97.9 F 05/11/21 04:40 Pulse 60 05/11/21 06:44 Resp 16 05/11/21 04:40 BP 112/65 05/11/21 06:44 Pulse Ox 98 05/11/21 04:40 Intake & Output 05/10/21 05/11/21 05/11/21 18:59 06:59 18:59 Intake Total 240 Output Total 850 3430 Balance -610 -3430 Weight 68.1 kg Intake: Oral 240 Output: Urine 200 450 Stool 650 2980 Other: Voiding Method External Catheter External Catheter # Voids 2 # Bowel Movements 1 1 - Exam - Constitutional General appearance: cooperative, no acute distress - EENT Eyes: EOMI ENT: hard of hearing, NA/AT - Neck Neck: normal ROM - Respiratory Respiratory: bilateral: diminished - Cardiovascular Rhythm: irregularly irregular - Gastrointestinal General gastrointestinal: soft, tenderness - Integumentary Integumentary: pale - Musculoskeletal Musculoskeletal: generalized weakness - Psychiatric poor historian - Labs CBC & Chem 7: 05/11/21 11:39 05/11/21 07:21 Labs: Abnormal Lab Results - Last 24 Hours (Table) 05/09/21 05/09/21 05/10/21 Range/Units 11:36 11:36 07:05 WBC (3.8-10.6) k/uL RBC 2.98 L (3.80-5.40) m/uL Hgb 9.3 L (11.4-16.0) gm/dL Hct 27.6 L (34.0-46.0) % RDW 16.8 H (11.5-15.5) % Lymphocytes # 0.6 L (1.0-4.8) k/uL Sodium (137-145) mmol/L BUN (7-17) mg/dL Creatinine (0.52-1.04) mg/dL Glucose (74-99) mg/dL Iron 29 L (50-170) ug/dL % Saturation 8.92 L (12.00-45.00) Lactate Dehydrogenase 301 H (120-246) U/L Total Protein (6.3-8.2) g/dL Albumin (3.5-5.0) g/dL Carcinoembryonic Ag 17.5 H (0.0-4.9) ng/mL Vitamin B12 127.0 L (200.0-944.0) pg/mL 05/10/21 05/10/21 Range/Units 07:05 17:50 WBC 13.2 H (3.8-10.6) k/uL RBC 3.37 L (3.80-5.40) m/uL Hgb 10.8 L (11.4-16.0) gm/dL Hct 31.5 L (34.0-46.0) % RDW 16.7 H (11.5-15.5) % Lymphocytes # (1.0-4.8) k/uL Sodium 132 L (137-145) mmol/L BUN 20 H (7-17) mg/dL Creatinine 1.06 H (0.52-1.04) mg/dL Glucose 109 H (74-99) mg/dL Iron (50-170) ug/dL % Saturation (12.00-45.00) Lactate Dehydrogenase (120-246) U/L Total Protein 5.2 L (6.3-8.2) g/dL Albumin 2.9 L (3.5-5.0) g/dL Carcinoembryonic Ag (0.0-4.9) ng/mL Vitamin B12 (200.0-944.0) pg/mL Assessment and Plan (1) Metastatic colorectal cancer Current Visit: Yes Status: Acute Code(s): C19 - MALIGNANT NEOPLASM OF RECTOSIGMOID JUNCTION SNOMED Code(s): 00558191 (2) Anemia Current Visit: Yes Status: Acute Code(s): D64.9 - ANEMIA, UNSPECIFIED SNOMED Code(s): 283706679 (3) Vertigo Current Visit: Yes Status: Acute Code(s): R42 - DIZZINESS AND GIDDINESS SNOMED Code(s): 055292865 Plan: Assessment and Recommendations: Symptomatic Anemia: - Need to assess for bleeding, recurrent or progressive cancer, hemolysis - GI Eval - Iron studies prior to transfusion - Repeat CBC in am Metastatic Colon Cancer: - Treatment interrupted and restaging interrupted with need for cardiac interventions over the past 2 months - Increased CEA, concern for progression, Restage, Await GI evalu - Restaging PET at discharge (originally scheduled in February) Plan: CEA is increased, concerning for progression of Colon cancer. CT head negative. Iron and B12 decreased - Supplement ordered. GI is further evaluating today with EGD and COlonoscopy. Restaging CTs have been ordere
[2021-05-11] MEDS: LATANOPROST 0.005% OPHTH DROPS 2.5 ML BTL LEFT EYE SCH (20:33)
[2021-05-11] MEDS: PRAVASTATIN SODIUM 80 MG TAB PO SCH (20:34)
--- NOTE | 2021-05-11 22:54 | CT ---
EXAMINATION TYPE: CT ChestAbdPelvis w con DATE OF EXAM: 05/11/2021 COMPARISON: 05/18/2019 HISTORY: Increased CEA, blood loss, anemia. CT DLP: 859.2 mGycm Automated exposure control for dose reduction was used. CONTRAST: Performed with IV Contrast, patient injected with 80 mL of Isovue 300. Images obtained from the thoracic inlet to the floor the pelvis with IV contrast. There is some mild perihilar groundglass interstitial pulmonary infiltrate. Heart is slightly enlarge d. There is no pericardial effusion. There are no hilar masses. There is no mediastinal adenopathy. T here is small left pleural effusion and pleural thickening at the left lung base. There is minimal at electasis right posterior lung base. There is 6 mm rounded hypodensity in the lateral right lobe of the liver. There is similar 7 mm round ed hypodensity in the right lobe of the liver adjacent to the right kidney. There are clips from chol ecystectomy. The bile ducts are not dilated. The stomach is intact. Spleen is intact. The pancreas ap pears normal. Pancreatic duct appears normal. There is no adrenal mass. Kidneys show satisfactory contrast opacification. There are left side renal small parapelvic cysts. There is no hydronephrosis. Ureters are not dilated. Bladder distends smooth ly. There is no inguinal hernia. There is no free fluid in the pelvis. There are some sigmoid diverti cula. There are surgical clips in the pelvis. Large bowel is mostly on the left side. Appendix is not seen. There is no sign of thickened appendix. There are multiple enlarged retroperitoneal lymph nodes. The largest is measuring 4.7 X3.5 x 2.1 cm on the right side of the mid abdominal aorta. There are some enlarged mesenteric lymph nodes in the r ight mid abdomen. These measure up to 2.7 cm in greatest dimension. There is enlarged hepato pancreat ic lymph node measuring 3.3 x 2.3 cm. Thoracic and lumbar vertebra show no compression fracture. There is a mild degenerative first-degree L4-5 spondylolisthesis. The bony pelvis is intact. The hip joints are intact. There is no hip dysplas ia. There is no evidence of a rib fracture. Shoulder joints are intact. There is no evidence of a bow el obstruction. There is no mesenteric edema. There is no ascites. There is no evidence of free air. IMPRESSION: Compared to old exam there is development of significant retroperitoneal adenopathy and mesenteric ad enopathy consistent with recurrent tumor. Stable small rounded hypodensities in the liver. There is a new small left pleural effusion and minimal atelectasis at the lung bases.
[2021-05-12] MEDS: PROCHLORPERAZINE 5 MG TAB PO PRN (00:09)
[2021-05-12] MEDS: PANTOPRAZOLE 40 MG TABLET PO SCH (06:37)
[2021-05-12] MEDS: carvediloL 6.25 MG TAB PO SCH ×2 (06:37→17:23)
[2021-05-12 07:24] LABS: Anisocytosis Slight; Basophils % (A) 0 %; Eosinophils # (A) 0.1 k/uL (0-0.7); Eosinophils % (A) 2 %; HCT 24.9 % (34.0-46.0); HGB 8.5 gm/dL (11.4-16.0); Lymphocytes # (A) 0.3 k/uL (1.0-4.8); Lymphocytes % (A) 6 %; MCHC 34.2 g/dL (31.0-37.0); MCV 93.4 fL (80.0-100.0); Mean Platelet Volume 8.3; Monocytes # (A) 0.3 k/uL (0-1.0); Monocytes % (A) 5 %; Neutrophils # (A) 5.1 k/uL (1.3-7.7); Neutrophils % (A) 84 %; Platelet Count 227 k/uL (150-450); RBC 2.66 m/uL (3.80-5.40); RDW 17.3 % (11.5-15.5); WBC 6.1 k/uL (3.8-10.6)
[2021-05-12 07:39] LABS: Potassium 4.5 mmol/L (3.5-5.1); Total Bilirubin 0.6 mg/dL (0.2-1.3); Total Protein 5.3 g/dL (6.3-8.2)
[2021-05-12] MEDS: AMIODARONE 200 MG TAB PO SCH ×2 (08:21→20:43)
[2021-05-12] MEDS: ASPIRIN 81 MG PO SCH (08:21)
[2021-05-12] MEDS: MAGNESIUM OXIDE 400 MG TAB PO SCH ×2 (08:21→20:43)
[2021-05-12] MEDS: TICAGRELOR 90 MG TAB PO SCH ×2 (08:21→20:43)
[2021-05-12] MEDS: SPIRONOLACTONE 25 MG TAB PO SCH (08:21)
[2021-05-12] MEDS: POTASSIUM CHLORIDE ER 20 MEQ TAB.ER PO SCH (08:21)
[2021-05-12] MEDS: CYANOCOBALAMIN 1,000 MCG/ML 1 ML VIAL IM SCH (08:22)
[2021-05-12] MEDS: SACUBITRIL/VALSARTAN 24 MG-26 MG TABLET PO SCH ×2 (08:23→20:43)
[2021-05-12] MEDS: BRIMONIDINE TARTRATE 0.2% DROPS 5 ML BTL LEFT EYE SCH ×2 (08:24→20:43)
[2021-05-12] MEDS: prednisoLONE ACETATE 1% OPHTH DROPS 5 ML BTL RIGHT EYE SCH (08:24)
[2021-05-12] MEDS: TIMOLOL 0.5% OPHTH DROPS 5 ML BTL LEFT EYE SCH ×2 (08:25→20:44)
[2021-05-12] MEDS: SODIUM FERRIC GLUCONAT-SUCROSE 125 MG in SODIUM CHLORIDE 0.9% 100 ML IVPB SCH (08:46)
--- NOTE | 2021-05-12 18:41 | P.PN ---
Subjective Progress Note Date: 05/12/21 Hernan Contreras, is a 75-year-old female presented to [facility] emergency room with a chief complaint of dizziness, patient stated that she went to have a blood test at Dr. Cifuentes's office when she returned home she was feeling very dizzy and she fell down to her knees, she was helped to a chair by her family, she continued to feel dizzy, she describes her head floating in front of her, she describes difficulty looking to the sides due to feeling dizzy and feeling nauseated . She was evaluated in the emergency room, vital examination on presentation revealed a temperature of 98.6 pulse 60 respiration 20 blood pressure 119/52 pulse ox 99% on room air. Laboratory data in the emergency room revealed a white blood count of 7.8 hemoglobin 8.0 and a platelet count of 2:30 sodium 132 potassium 4.4 chloride 105 CO2 19 BUN 21 creatinine 1.02 troponin level 0.024 testing in the emergency room included an EKG that revealed a sinus rhythm with first-degree AV block and right bundle branch block and T-wave abnormality in the inferior leads chest x-ray revealed no acute abnormality, computed tomography scan of the brain revealed no acute hemorrhage or mass affect. Patient was admitted to telemetry floor for further evaluation, carotid Doppler was ordered, cardiology consultation was requested, gastroenterology consultation was requested in regard to anemia. Patient was recently admitted to [facility] after having a cardiac arrest and having her defibrillator firing, at that time she was having hypokalemia, patient has a known history of acute systolic congestive heart failure with ejection fraction of 25-30% she has underlying history of ventricular tachycardia and had an AICD placed in February 2021, she has a history of coronary artery disease with recent angioplasty and stent placement, she has a history of hypertension, hyperlipidemia, and a previous history of colon cancer. On 05/09/2021 patient alert and oriented 3. Hemoglobin today 5.9. 1 unit of PRBCs ordered. GI services are following with possible plans of endoscopic exams. Cardiology services are also following 2-D echo has been ordered. Brilinta and eliquis on hold. Carotid ultrasound completed showing no significant flow-limiting stenosis.Patient denies any nausea or vomiting. Patient denies any dark stool. Patient denies any urinary burning or frequency. Patient received IV Lasix 20 mg after each unit On 05/10/2021 Patient was seen and examined on the medical floor, he is alert and oriented x 3 in no distress, he denies any complaints there is no fever or chills no headache or dizziness no chest pain no shortness of breath no palpitation no cough no nausea or vomiting no abdominal pain no diarrhea no blood in the stools no burning with urination no frequency or urgency and no hematuria, there is no weakness or numbness in any of the extremities no change in vision speech or gait. Hemoglobin is up to 9.3 after 2 units of red blood transfusion, EGD and colonos copy are scheduled for tomorrow to assess for any source of bleeding. On 05/11/2020 Patient is alert and oriented 3. Hemoglobin 8.5. Plans for EGD and colonoscopy today. Patient did report bleeding with prep for colonoscopy. Patient denies any abdominal discomfort. Patient denies any nausea or vomiting. Patient denies any burning with urination. On 05/12/2021 Patient was seen and examined on the medical floor, he is alert and oriented x 3 in no distress, he denies any complaints there is no fever or chills no headache or dizziness no chest pain no shortness of breath no palpitation no cough no nausea or vomiting no abdominal pain no diarrhea no blood in the stools no burning with urination no frequency or urgency and no hematuria, there is no weakness or numbness in any of the extremities no change in vision speech or gait. EGD and colonoscopy results discussed with patient and family member at the bedside will continue to monitor hemoglobin closely will recheck labs in a.m. Objective - Vital Signs Vital signs: Vital Signs Temp 97.7 F 05/12/21 04:00 Pulse 64 05/12/21 08:00 Resp 20 05/12/21 08:00 BP 119/56 05/12/21 08:00 Pulse Ox 100 05/12/21 08:00 Intake & Output 05/11/21 05/12/21 05/12/21 18:59 06:59 18:59 Intake Total 320 240 Output Total 200 Balance 120 240 Weight 57.9 kg Intake: IV 200 Oral 120 240 Output: Urine 200 Other: # Voids 1 1 # Bowel Movements 1 1 - Exam In general patient is alert and oriented x 3 in no distress HEENT head normocephalic and atraumatic Neck is supple no JVD no goiter no lymphadenopathy no carotid bruit Chest examination is clear to auscultation no crackles no wheezing Cardiac exam reveals regular heart sounds S1 and S2 no gallops no murmurs Abdomen is soft nontender no organomegaly with normal bowel sounds Extremity exam reveals no edema no cyanosis or clubbing Neurological examination reveals no gross focal deficits - Labs CBC & Chem 7: 05/12/21 06:51 05/12/21 06:51 Labs: Abnormal Lab Results - Last 24 Hours (Table) 05/11/21 05/12/21 05/12/21 Range/Units 11:39 06:51 06:51 RBC 2.69 L 2.66 L (3.80-5.40) m/uL Hgb 8.3 L 8.5 L (11.4-16.0) gm/dL Hct 24.8 L 24.9 L (34.0-46.0) % RDW 17.1 H 17.3 H (11.5-15.5) % Lymphocytes # 0.3 L (1.0-4.8) k/uL Sodium 129 L (137-145) mmol/L Carbon Dioxide 20 L (22-30) mmol/L BUN 19 H (7-17) mg/dL AST 42 H (14-36) U/L ALT 36 H (4-34) U/L Total Protein 5.3 L (6.3-8.2) g/dL Albumin 3.0 L (3.5-5.0) g/dL Assessment and Plan Plan: 1. Dizziness and lightheadedness, cause is unclear could be related to inner ear vertigo, Antivert was ordered, will check carotid Doppler 2. Episode of presyncope with falling down to her knees at home prior to presentation 3. Anemia hemoglobin down to 8.0 her hemoglobin was 10.5 on 04/20/2021 patient is maintained on Eliquis and Brillinta, gastroenterology consultation was requested stool Hemoccult was ordered. Hemoglobin 5.9. 2 unit of PRBCs given yesterday, hemoglobin is up to 9.3 gastroenterology are following and planning for EGD and colonoscopy tomorrow, Brillinta is continued due to recent stent placement, Eliquis is on hold at this time. Will check iron profile, vitamin B12 and folate levels and replace if needed 4. Underlying history of coronary artery disease, EKG is abnormal and first troponin level is slightly elevated, will check troponin again, cardiology consult was requested 5. Underlying history of cardiomyopathy with ejection fraction of 25-30% 6. Hypotension which may be contributing to patient feeling of dizziness cardiology consultation was requested to reevaluate cardiac medications 7. Underlying history of hyperlipidemia maintained on Pravachol 80 mg once daily Home medications reviewed and reordered Cardiology and gastroenterology consultation requested Carotid Doppler completed showing no flow-limiting stenosis Echocardiogram was done recently, no need to repeat at this time Status post 2 units of PRBCs Plans for cough be an EGD today 05/11/2021 Will follow closely
--- NOTE | 2021-05-12 19:08 | P.PN ---
Subjective This is a pleasant 75-year-old female past medical history significant for coronary artery disease status post PCI proximal LAD and mid LAD 11/2020, ischemic cardiomyopathy status post AICD placement in 02/2021, dyslipidemia, hypertension, CVA. History of colon cancer diagnosed about 5 years ago in [place]. At that time the patient underwent bowel resection without colostomy and chemotherapy. Patient states that she went into remission however the cancer returned and she was restarted with chemotherapy. The chemotherapy was stopped approximately 4 months ago. She follows in the office with Dr. Nice. We have been asked to see in consultation for dizziness. Patient states that over the past 4 days she has been having episodes of dizziness when she rotates her neck and turns her head from side to side. When she does this she states it looks "fuzzy" and she cant see clearly. She denies room spinning sensation. If she is looking straight ahead she has no symptoms. Yesterday in particular she had another episode of dizziness, felt lightheaded and did fall to her knees. She denies loss of consciousness. She recently followed up with Dr. Nice on 04/26 and her amiodarone was decreased to 200mg BID from 400mg and she was restarted on her spironolactone. She has been feeling fine since then. She denies any weakness, headache, chest pain, shortness of breath, palpitations, nausea, vomiting, diarrhea, denies blood in urine or stool, denies dark bowel movements. She endorses having a decreased appetite. Patient was recently admitted on 04/03/2021 with complaints of lightheadedness and presyncope. She was found to be hypokalemic. Cardiology was consulted due to cardiac arrest near-syncope. At that time patient was taken to x-ray and she went unresponsive, she had agonal breathing, she had no pulse. CPR was begun at that time. Her ICD went off and her pulses returned. Patient did not remember this event. Patient was started on amiodarone drip. Reviewing her device check- She did have an Episode of VF/VT and received an ICD shock. She also was having very frequent runs of nonsustained ventricular tachycardia and nonsustained ventricular fibrillation Patient's VF/VT was attributed to her severe hypokalemia. Dr. Upton evaluated the patient, and recommended aldactone, avoid overdiuresis, and mexiletine. However, patient could not tolerate mexiletine due to nausea and vomiting. Patient was also started on Entresto. She was also admitted in 02/2021 due to diarrhea and hypokalemia was also discharged on LifeVest. She had recurrent ventricular tachycardia requiring shocks and subsequently received an ICD. On the following day patient had symptoms of CVA with the middle cerebral artery occlusion which is clearly embolic, received TPA and was transported [facility]. She started anticoagulation Eliquis and Brilinta. While she was inpatient at [facility] there is no documentations of atrial fibrillation during her hospital stay and her echocardiogram showed a severely impaired systolic function no evidence of apical thrombus. Most recent limited echocardiogram 04/13/2021 revealed an EF 25-30%, mild MR 05/10/2021: Patient seen at bedside. This morning when patient was walking to and from the bathroom she became lightheaded and had associated dizziness. Her blood pressure per nursing was 78/40s.HR 60s. When patient sat down and rested BP returned to 102/67. Patient also endorses dark bowel movements. She states she does feel fatigued. Laboratory data review WBC 6.1, hemoglobin 5.9, platelets 182, sodium 136, potassium 4.5, BUN 21, serum creatinine 1.2. Patient currently maintained on amiodarone 20 mg twice a day, carvedilol to 0.5 mg twice daily, Eliquis 5 mg twice a day, Brilinta 90 mg twice a day, potassium chloride 20 mEq daily, pravastatin 80 mg nightly, and Entresto 24 mg26 mg twice a day, spironolactone 50 mg daily. Telemetry reviewed patient continues to be in sinus mechanism heart rate 55-60's. Carotid ultrasound revealed mild intimal wall changes seen in the bilateral carotid bifurcation. No significant flow-limiting stenosis. 05/12 Sincerely examined. Patient was placed back on her aspirin Brilinta. She denies any further dark stools. She has been on only a clear liquid diet and has some hyponatremia. Potassium has been stable as she has had issues with ventricular tachycardia in the past with hypokalemia. She denies any shortness breath or chest pain. Prior scopes showed mild gastritis and diverticulosis however no active bleed with old dried blood. She is receiving IV iron infusion. She did have a CAT scan performed which showed concern of increased adenopathy. PHYSICAL EXAMINATION Vitals reviewed CONSTITUTIONAL: No apparent distress. HEENT: Neck Supple. No JVD. CHEST EXAMINATION: Lungs are clear to auscultation. HEART EXAMINATION: Regular rate and rhythm. S1, S2 heard. Systolic murmur at apex ABDOMEN: Soft, nontender. Positive bowel sounds. EXTREMITIES: 2+ peripheral pulses, no lower extremity edema and no calf tenderness. NEUROLOGIC EXAMINATION: Patient is awake, alert and oriented x3. ASSESSMENT Dizziness, Lightheadedness Coronary artery disease status post PCI proximal LAD and mid LAD 11/2020 Ischemic cardiomyopathy status post single chamber AICD placement in 02/[address] Thomas History of nonsustained fast VT and nonsustained ventricular fibrillation with ICD shock in March 2021 Congestive systolic heart failure Dyslipidemia Hypertension CVA in February 2021 History of colon cancer s/p bowel resection without colostomy and chemotherapy Anemia- concerning for GIB Increased adenopathy concerning for recurrent cancer PLAN Continue to monitor hemoglobin after she has been placed back on aspirin and Brilinta. We may consider changing Brilinta to Plavix for her dyspnea however dyspnea most likely related to her anemia. CT showing concern of possible increased adenopathy and recurrence of cancer. Objective - Vital Signs Vital signs: Vital Signs Temp 97 F L 05/12/21 16:49 Pulse 61 05/12/21 16:49 Resp 20 05/12/21 16:49 BP 119/58 05/12/21 16:49 Pulse Ox 98 05/12/21 16:49 Intake & Output 05/12/21 05/12/21 05/13/21 06:59 18:59 06:59 Intake Total 720 Balance 720 Weight 57.9 kg Intake: Oral 720 Other: # Voids 1 1 # Bowel Movements 1 1 - Labs CBC & Chem 7: 05/12/21 06:51 05/12/21 06:51 Labs: Abnormal Lab Results - Last 24 Hours (Table) 05/12/21 05/12/21 Range/Units 06:51 06:51 RBC 2.66 L (3.80-5.40) m/uL Hgb 8.5 L (11.4-16.0) gm/dL Hct 24.9 L (34.0-46.0) % RDW 17.3 H (11.5-15.5) % Lymphocytes # 0.3 L (1.0-4.8) k/uL Sodium 129 L (137-145) mmol/L Carbon Dioxide 20 L (22-30) mmol/L BUN 19 H (7-17) mg/dL AST 42 H (14-36) U/L ALT 36 H (4-34) U/L Total Protein 5.3 L (6.3-8.2) g/dL Albumin 3.0 L (3.5-5.0) g/dL
[2021-05-12] MEDS: PRAVASTATIN SODIUM 80 MG TAB PO SCH (20:43)
[2021-05-12] MEDS: LATANOPROST 0.005% OPHTH DROPS 2.5 ML BTL LEFT EYE SCH (20:43)
[2021-05-13] MEDS: PANTOPRAZOLE 40 MG TABLET PO SCH (06:41)
[2021-05-13] MEDS: carvediloL 6.25 MG TAB PO SCH ×2 (06:43→17:33)
[2021-05-13 07:38] LABS: Anisocytosis Slight; Basophils % (A) 0 %; Eosinophils # (A) 0.2 k/uL (0-0.7); Eosinophils % (A) 3 %; HCT 25.1 % (34.0-46.0); HGB 8.3 gm/dL (11.4-16.0); Hypochromasia Slight; Lymphocytes # (A) 0.3 k/uL (1.0-4.8); Lymphocytes % (A) 5 %; MCH 31.9 pg (25.0-35.0); MCHC 33.3 g/dL (31.0-37.0); MCV 95.9 fL (80.0-100.0); Macrocytosis Slight; Mean Platelet Volume 8.8; Monocytes # (A) 0.4 k/uL (0-1.0); Monocytes % (A) 6 %; Neutrophils # (A) 4.8 k/uL (1.3-7.7); Neutrophils % (A) 84 %; Platelet Count 228 k/uL (150-450); Poikilocytosis Slight; RBC 2.61 m/uL (3.80-5.40); RDW 17.7 % (11.5-15.5); WBC 5.7 k/uL (3.8-10.6)
[2021-05-13 08:04] LABS: Albumin 2.9 g/dL (3.5-5.0); Potassium 4.5 mmol/L (3.5-5.1); Total Bilirubin 0.5 mg/dL (0.2-1.3); Total Protein 5.1 g/dL (6.3-8.2)
[2021-05-13] MEDS: POTASSIUM CHLORIDE ER 20 MEQ TAB.ER PO SCH (08:54)
[2021-05-13] MEDS: SPIRONOLACTONE 25 MG TAB PO SCH (08:54)
[2021-05-13] MEDS: MAGNESIUM OXIDE 400 MG TAB PO SCH ×2 (08:54→21:18)
[2021-05-13] MEDS: TICAGRELOR 90 MG TAB PO SCH ×2 (08:54→21:18)
[2021-05-13] MEDS: AMIODARONE 200 MG TAB PO SCH ×2 (08:54→21:18)
[2021-05-13] MEDS: ASPIRIN 81 MG PO SCH (08:54)
[2021-05-13] MEDS: SACUBITRIL/VALSARTAN 24 MG-26 MG TABLET PO SCH ×2 (08:55→21:18)
[2021-05-13] MEDS: CYANOCOBALAMIN 1,000 MCG/ML 1 ML VIAL IM SCH (08:55)
[2021-05-13] MEDS: BRIMONIDINE TARTRATE 0.2% DROPS 5 ML BTL LEFT EYE SCH ×2 (08:56→21:18)
[2021-05-13] MEDS: TIMOLOL 0.5% OPHTH DROPS 5 ML BTL LEFT EYE SCH ×2 (08:56→21:20)
[2021-05-13] MEDS: prednisoLONE ACETATE 1% OPHTH DROPS 5 ML BTL RIGHT EYE SCH (08:56)
[2021-05-13] MEDS: SODIUM FERRIC GLUCONAT-SUCROSE 125 MG in SODIUM CHLORIDE 0.9% 100 ML IVPB SCH (09:26)
--- NOTE | 2021-05-13 10:51 | P.PN ---
Subjective Progress Note Date: 05/13/21 Hernan Contreras, is a 75-year-old female presented to [facility] emergency room with a chief complaint of dizziness, patient stated that she went to have a blood test at Dr. Cifuentes's office when she returned home she was feeling very dizzy and she fell down to her knees, she was helped to a chair by her family, she continued to feel dizzy, she describes her head floating in front of her, she describes difficulty looking to the sides due to feeling dizzy and feeling nauseated . She was evaluated in the emergency room, vital examination on presentation revealed a temperature of 98.6 pulse 60 respiration 20 blood pressure 119/52 pulse ox 99% on room air. Laboratory data in the emergency room revealed a white blood count of 7.8 hemoglobin 8.0 and a platelet count of 2:30 sodium 132 potassium 4.4 chloride 105 CO2 19 BUN 21 creatinine 1.02 troponin level 0.024 testing in the emergency room included an EKG that revealed a sinus rhythm with first-degree AV block and right bundle branch block and T-wave abnormality in the inferior leads chest x-ray revealed no acute abnormality, computed tomography scan of the brain revealed no acute hemorrhage or mass affect. Patient was admitted to telemetry floor for further evaluation, carotid Doppler was ordered, cardiology consultation was requested, gastroenterology consultation was requested in regard to anemia. Patient was recently admitted to [facility] after having a cardiac arrest and having her defibrillator firing, at that time she was having hypokalemia, patient has a known history of acute systolic congestive heart failure with ejection fraction of 25-30% she has underlying history of ventricular tachycardia and had an AICD placed in February 2021, she has a history of coronary artery disease with recent angioplasty and stent placement, she has a history of hypertension, hyperlipidemia, and a previous history of colon cancer. On 05/09/2021 patient alert and oriented 3. Hemoglobin today 5.9. 1 unit of PRBCs ordered. GI services are following with possible plans of endoscopic exams. Cardiology services are also following 2-D echo has been ordered. Brilinta and eliquis on hold. Carotid ultrasound completed showing no significant flow-limiting stenosis.Patient denies any nausea or vomiting. Patient denies any dark stool. Patient denies any urinary burning or frequency. Patient received IV Lasix 20 mg after each unit On 05/10/2021 Patient was seen and examined on the medical floor, he is alert and oriented x 3 in no distress, he denies any complaints there is no fever or chills no headache or dizziness no chest pain no shortness of breath no palpitation no cough no nausea or vomiting no abdominal pain no diarrhea no blood in the stools no burning with urination no frequency or urgency and no hematuria, there is no weakness or numbness in any of the extremities no change in vision speech or gait. Hemoglobin is up to 9.3 after 2 units of red blood transfusion, EGD and colonos copy are scheduled for tomorrow to assess for any source of bleeding. On 05/11/2020 Patient is alert and oriented 3. Hemoglobin 8.5. Plans for EGD and colonoscopy today. Patient did report bleeding with prep for colonoscopy. Patient denies any abdominal discomfort. Patient denies any nausea or vomiting. Patient denies any burning with urination. On 05/12/2021 Patient was seen and examined on the medical floor, he is alert and oriented x 3 in no distress, he denies any complaints there is no fever or chills no headache or dizziness no chest pain no shortness of breath no palpitation no cough no nausea or vomiting no abdominal pain no diarrhea no blood in the stools no burning with urination no frequency or urgency and no hematuria, there is no weakness or numbness in any of the extremities no change in vision speech or gait. EGD and colonoscopy results discussed with patient and family member at the bedside will continue to monitor hemoglobin closely will recheck labs in a.m. On 05/13/2021 patient is alert and oriented 3. Patient has been started back on her Brilinta and aspirin. No further episodes of bleeding. Patient is having some occasional nausea. Patient receiving IV iron. Computed tomography scan of abdomen and pelvis completed. Oncology services are following. Hemoglobin stable at 8.3. Repeat labs ordered. Patient denies chest pain. Patient denies nausea vomiting or diarrhea. Patient denies any urinary burning or frequency Objective - Vital Signs Vital signs: Vital Signs Temp 97.9 F 05/13/21 04:00 Pulse 62 05/13/21 08:24 Resp 20 05/13/21 08:24 BP 140/60 05/13/21 08:24 Pulse Ox 97 05/13/21 08:24 Intake & Output 08/05/13/21 05/13/21 18:59 06:59 18:59 Intake Total 720 480 Balance 720 480 Weight 58.4 kg Intake: Oral 720 480 Other: # Voids 1 1 # Bowel Movements 1 1 - Exam In general patient is alert and oriented x 3 in no distress HEENT head normocephalic and atraumatic Neck is supple no JVD no goiter no lymphadenopathy no carotid bruit Chest examination is clear to auscultation no crackles no wheezing Cardiac exam reveals regular heart sounds S1 and S2 no gallops no murmurs Abdomen is soft nontender no organomegaly with normal bowel sounds Extremity exam reveals no edema no cyanosis or clubbing Neurological examination reveals no gross focal deficits - Labs CBC & Chem 7: 05/13/21 07:05 05/13/21 07:05 Labs: Abnormal Lab Results - Last 24 Hours (Table) 05/13/21 05/13/21 Range/Units 07:05 07:05 RBC 2.61 L (3.80-5.40) m/uL Hgb 8.3 L (11.4-16.0) gm/dL Hct 25.1 L (34.0-46.0) % RDW 17.7 H (11.5-15.5) % Lymphocytes # 0.3 L (1.0-4.8) k/uL Sodium 131 L (137-145) mmol/L Creatinine 1.24 H (0.52-1.04) mg/dL Glucose 108 H (74-99) mg/dL AST 39 H (14-36) U/L Total Protein 5.1 L (6.3-8.2) g/dL Albumin 2.9 L (3.5-5.0) g/dL Assessment and Plan Plan: 1. Dizziness and lightheadedness, cause is unclear could be related to inner ear vertigo, Antivert was ordered, will check carotid Doppler 2. Episode of presyncope with falling down to her knees at home prior to presentation 3. Anemia hemoglobin down to 8.0 her hemoglobin was 10.5 on 04/20/2021 patient is maintained on Eliquis and Brillinta, status post 2 units of PRBCs. Status post colonoscopy and EGD findings below 4. Underlying history of coronary artery disease, EKG is abnormal and first troponin level is slightly elevated, will check troponin again, cardiology consult was requested 5. Underlying history of cardiomyopathy with ejection fraction of 25-30% 6. Hypotension which may be contributing to patient feeling of dizziness cardiology consultation was requested to reevaluate cardiac medications 7. Underlying history of hyperlipidemia maintained on Pravachol 80 mg once daily 8. History of colon cancer. 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 Stable small round hyperdensities in the liver there is new small left pleural effusion minimal atelectasis at the lung bases. Oncology services are following Home medications reviewed and reordered Cardiology and gastroenterology consultation requested Carotid Doppler completed showing no flow-limiting stenosis Echocardiogram was done recently, no need to repeat at this time Status post 2 units of PRBCs Status post EGD and colonoscopy on 05/11/2021 showing no active bleeding mild gastritis Will follow closely
--- NOTE | 2021-05-13 13:59 | P.PN ---
Subjective This is a pleasant 75-year-old female past medical history significant for coronary artery disease status post PCI proximal LAD and mid LAD 11/2020, ischemic cardiomyopathy status post AICD placement in 02/2021, dyslipidemia, hypertension, CVA. History of colon cancer diagnosed about 5 years ago in [place]. At that time the patient underwent bowel resection without colostomy and chemotherapy. Patient states that she went into remission however the cancer returned and she was restarted with chemotherapy. The chemotherapy was stopped approximately 4 months ago. She follows in the office with Dr. Nice. We have been asked to see in consultation for dizziness. Patient states that over the past 4 days she has been having episodes of dizziness when she rotates her neck and turns her head from side to side. When she does this she states it looks "fuzzy" and she cant see clearly. She denies room spinning sensation. If she is looking straight ahead she has no symptoms. Yesterday in particular she had another episode of dizziness, felt lightheaded and did fall to her knees. She denies loss of consciousness. She recently followed up with Dr. Nice on 04/26 and her amiodarone was decreased to 200mg BID from 400mg and she was restarted on her spironolactone. She has been feeling fine since then. She denies any weakness, headache, chest pain, shortness of breath, palpitations, nausea, vomiting, diarrhea, denies blood in urine or stool, denies dark bowel movements. She endorses having a decreased appetite. Patient was recently admitted on 04/03/2021 with complaints of lightheadedness and presyncope. She was found to be hypokalemic. Cardiology was consulted due to cardiac arrest near-syncope. At that time patient was taken to x-ray and she went unresponsive, she had agonal breathing, she had no pulse. CPR was begun at that time. Her ICD went off and her pulses returned. Patient did not remember this event. Patient was started on amiodarone drip. Reviewing her device check- She did have an Episode of VF/VT and received an ICD shock. She also was having very frequent runs of nonsustained ventricular tachycardia and nonsustained ventricular fibrillation Patient's VF/VT was attributed to her severe hypokalemia. Dr. Upton evaluated the patient, and recommended aldactone, avoid overdiuresis, and mexiletine. However, patient could not tolerate mexiletine due to nausea and vomiting. Patient was also started on Entresto. She was also admitted in 02/2021 due to diarrhea and hypokalemia was also discharged on LifeVest. She had recurrent ventricular tachycardia requiring shocks and subsequently received an ICD. On the following day patient had symptoms of CVA with the middle cerebral artery occlusion which is clearly embolic, received TPA and was transported [facility]. She started anticoagulation Eliquis and Brilinta. While she was inpatient at [facility] there is no documentations of atrial fibrillation during her hospital stay and her echocardiogram showed a severely impaired systolic function no evidence of apical thrombus. Most recent limited echocardiogram 04/13/2021 revealed an EF 25-30%, mild MR 05/10/2021: Patient seen at bedside. This morning when patient was walking to and from the bathroom she became lightheaded and had associated dizziness. Her blood pressure per nursing was 78/40s.HR 60s. When patient sat down and rested BP returned to 102/67. Patient also endorses dark bowel movements. She states she does feel fatigued. Laboratory data review WBC 6.1, hemoglobin 5.9, platelets 182, sodium 136, potassium 4.5, BUN 21, serum creatinine 1.2. Patient currently maintained on amiodarone 20 mg twice a day, carvedilol to 0.5 mg twice daily, Eliquis 5 mg twice a day, Brilinta 90 mg twice a day, potassium chloride 20 mEq daily, pravastatin 80 mg nightly, and Entresto 24 mg26 mg twice a day, spironolactone 50 mg daily. Telemetry reviewed patient continues to be in sinus mechanism heart rate 55-60's. Carotid ultrasound revealed mild intimal wall changes seen in the bilateral carotid bifurcation. No significant flow-limiting stenosis. 05/12 Sincerely examined. Patient was placed back on her aspirin Brilinta. She denies any further dark stools. She has been on only a clear liquid diet and has some hyponatremia. Potassium has been stable as she has had issues with ventricular tachycardia in the past with hypokalemia. She denies any shortness breath or chest pain. Prior scopes showed mild gastritis and diverticulosis however no active bleed with old dried blood. She is receiving IV iron infusion. She did have a CAT scan performed which showed concern of increased adenopathy. 05/13 Patient seen and examined. Patient remains on dual antiplatelets without any hematochezia or melena. She denies any chest pain, pressure or shortness jhon ath. She has been walking the halls without any difficulty. PHYSICAL EXAMINATION Vitals reviewed CONSTITUTIONAL: No apparent distress. HEENT: Neck Supple. No JVD. CHEST EXAMINATION: Lungs are clear to auscultation. HEART EXAMINATION: Regular rate and rhythm. S1, S2 heard. Systolic murmur at ape x ABDOMEN: Soft, nontender. Positive bowel sounds. EXTREMITIES: 2+ peripheral pulses, no lower extremity edema and no calf tenderness. NEUROLOGIC EXAMINATION: Patient is awake, alert and oriented x3. ASSESSMENT Dizziness, Lightheadedness Coronary artery disease status post PCI proximal LAD and mid LAD 11/2020 Ischemic cardiomyopathy status post single chamber AICD placement in 02/[address] Thomas History of nonsustained fast VT and nonsustained ventricular fibrillation with ICD shock in March 2021 Congestive systolic heart failure Dyslipidemia Hypertension CVA in February 2021 History of colon cancer s/p bowel resection without colostomy and chemotherapy Anemia- concerning for GIB Increased adenopathy concerning for recurrent cancer PLAN Continue to monitor hemoglobin after she has been placed back on aspirin and Brilinta. We may consider changing Brilinta to Plavix for her dyspnea however dyspnea most likely related to her anemia. CT showing concern of possible increased adenopathy and recurrence of cancer. Hold Eliquis which appears that then placed for presumed emboli for her stroke. May consider further event monitoring or loop recorder if possibility of A. fib is a strong consideration. Objective - Vital Signs Vital signs: Vital Signs Temp 97.9 F 05/13/21 12:09 Pulse 55 L 05/13/21 12:09 Resp 20 05/13/21 12:09 BP 107/53 05/13/21 12:09 Pulse Ox 98 05/13/21 12:09 Intake & Output 05/12/21 05/13/21 05/13/21 18:59 06:59 18:59 Intake Total 720 820 Balance 720 820 Weight 58.4 kg Intake: Intake, IV Titration 100 Amount Sodium Ferric Gluconat- 100 Sucrose 125 mg In Sodium Chloride 0.9% 100 ml @ 100 mls/hr IVPB DAILY [facility] Rx#:[id number] Oral 720 720 Other: # Voids 1 1 # Bowel Movements 1 1 - Labs CBC & Chem 7: 05/13/21 07:05 05/13/21 07:05 Labs: Abnormal Lab Results - Last 24 Hours (Table) 05/13/21 05/13/21 Range/Units 07:05 07:05 RBC 2.61 L (3.80-5.40) m/uL Hgb 8.3 L (11.4-16.0) gm/dL Hct 25.1 L (34.0-46.0) % RDW 17.7 H (11.5-15.5) % Lymphocytes # 0.3 L (1.0-4.8) k/uL Sodium 131 L (137-145) mmol/L Creatinine 1.24 H (0.52-1.04) mg/dL Glucose 108 H (74-99) mg/dL AST 39 H (14-36) U/L Total Protein 5.1 L (6.3-8.2) g/dL Albumin 2.9 L (3.5-5.0) g/dL
[2021-05-13] MEDS: PRAVASTATIN SODIUM 80 MG TAB PO SCH (21:18)
[2021-05-13] MEDS: LATANOPROST 0.005% OPHTH DROPS 2.5 ML BTL LEFT EYE SCH (21:19)
[2021-05-14] MEDS: PANTOPRAZOLE 40 MG TABLET PO SCH (06:37)
[2021-05-14] MEDS: carvediloL 6.25 MG TAB PO SCH ×2 (06:39→17:05)
[2021-05-14 08:21] LABS: Albumin 3.1 g/dL (3.5-5.0); Calcium 9.5 mg/dL (8.4-10.2); Potassium 5.4 mmol/L (3.5-5.1); Total Bilirubin 0.5 mg/dL (0.2-1.3); Total Protein 5.3 g/dL (6.3-8.2)
[2021-05-14 08:31] LABS: Anisocytosis Slight; Basophils % (A) 0 %; Eosinophils # (A) 0.1 k/uL (0-0.7); Eosinophils % (A) 3 %; HCT 25.6 % (34.0-46.0); HGB 8.4 gm/dL (11.4-16.0); Hypochromasia Slight; Lymphocytes # (A) 0.4 k/uL (1.0-4.8); Lymphocytes % (A) 7 %; MCH 31.4 pg (25.0-35.0); MCV 95.1 fL (80.0-100.0); Macrocytosis Slight; Monocytes # (A) 0.3 k/uL (0-1.0); Monocytes % (A) 5 %; Neutrophils # (A) 4.3 k/uL (1.3-7.7); Neutrophils % (A) 83 %; Platelet Count 278 k/uL (150-450); RBC 2.69 m/uL (3.80-5.40); RDW 17.8 % (11.5-15.5); WBC 5.1 k/uL (3.8-10.6)
[2021-05-14] MEDS: AMIODARONE 200 MG TAB PO SCH ×2 (08:47→21:09)
[2021-05-14] MEDS: MAGNESIUM OXIDE 400 MG TAB PO SCH ×2 (08:48→21:09)
[2021-05-14] MEDS: ASPIRIN 81 MG PO SCH (08:48)
[2021-05-14] MEDS: SPIRONOLACTONE 25 MG TAB PO SCH (08:48)
[2021-05-14] MEDS: TICAGRELOR 90 MG TAB PO SCH ×2 (08:48→21:09)
[2021-05-14] MEDS: SACUBITRIL/VALSARTAN 24 MG-26 MG TABLET PO SCH ×2 (08:48→21:09)
[2021-05-14] MEDS: BRIMONIDINE TARTRATE 0.2% DROPS 5 ML BTL LEFT EYE SCH ×2 (08:49→21:10)
[2021-05-14] MEDS: POTASSIUM CHLORIDE ER 20 MEQ TAB.ER PO SCH (08:49)
[2021-05-14] MEDS: prednisoLONE ACETATE 1% OPHTH DROPS 5 ML BTL RIGHT EYE SCH (08:50)
[2021-05-14] MEDS: CYANOCOBALAMIN 1,000 MCG/ML 1 ML VIAL IM SCH (08:56)
[2021-05-14] MEDS: TIMOLOL 0.5% OPHTH DROPS 5 ML BTL LEFT EYE SCH ×2 (08:56→21:09)
--- NOTE | 2021-05-14 12:16 | P.PN ---
Subjective Progress Note Date: 05/14/21 Principal diagnosis: Symptomatic Anemia BLoodwork stable today, renal function slowly increased. CT C.A.P is concerning for recurrent progressive cancer along with increased CEA. Awaiting Biopsy results remain currently pending. Objective - Vital Signs Vital signs: Vital Signs Temp 98.0 F 05/14/21 08:00 Pulse 87 05/14/21 08:00 Resp 16 05/14/21 08:00 BP 94/48 05/14/21 08:00 Pulse Ox 99 05/14/21 08:00 Intake & Output 05/13/21 05/14/21 05/14/21 18:59 06:59 18:59 Intake Total 1060 120 Output Total 2 Balance 1060 118 Weight 58 kg Intake: Intake, IV Titration 100 Amount Sodium Ferric Gluconat- 100 Sucrose 125 mg In Sodium Chloride 0.9% 100 ml @ 100 mls/hr IVPB DAILY [facility] Rx#:[id number] Oral 960 120 Output: Stool 2 Other: Voiding Method Bedside Commode Bedside Commode # Voids 1 1 1 # Bowel Movements 1 1 - Exam - Constitutional General appearance: cooperative, no acute distress - EENT Eyes: EOMI ENT: hard of hearing, NA/AT - Neck Neck: normal ROM - Respiratory Respiratory: bilateral: diminished - Cardiovascular Rhythm: irregularly irregular - Gastrointestinal General gastrointestinal: soft, tenderness - Integumentary Integumentary: pale - Musculoskeletal Musculoskeletal: generalized weakness - Psychiatric poor historian - Labs CBC & Chem 7: 05/14/21 07:39 05/14/21 07:39 Labs: Abnormal Lab Results - Last 24 Hours (Table) 05/14/21 05/14/21 Range/Units 07:39 07:39 RBC 2.69 L (3.80-5.40) m/uL Hgb 8.4 L (11.4-16.0) gm/dL Hct 25.6 L (34.0-46.0) % RDW 17.8 H (11.5-15.5) % Lymphocytes # 0.4 L (1.0-4.8) k/uL Sodium 133 L (137-145) mmol/L Potassium 5.4 H (3.5-5.1) mmol/L Creatinine 1.28 H (0.52-1.04) mg/dL Glucose 105 H (74-99) mg/dL AST 52 H (14-36) U/L ALT 43 H (4-34) U/L Total Protein 5.3 L (6.3-8.2) g/dL Albumin 3.1 L (3.5-5.0) g/dL Assessment and Plan (1) Metastatic colorectal cancer Current Visit: Yes Status: Acute Code(s): C19 - MALIGNANT NEOPLASM OF RECTOSIGMOID JUNCTION SNOMED Code(s): 69048202 (2) Anemia Current Visit: Yes Status: Acute Code(s): D64.9 - ANEMIA, UNSPECIFIED SNOMED Code(s): 016813035 (3) Vertigo Current Visit: Yes Status: Acute Code(s): R42 - DIZZINESS AND GIDDINESS SNOMED Code(s): 863485578 Plan: Assessment and Recommendations: Symptomatic Anemia: - Need to assess for bleeding, recurrent or progressive cancer, hemolysis - Status Post GI Eval with biopsy - Iron studies prior to transfusion - Repeat CBC in am Metastatic Colon Cancer: - Treatment interrupted and restaging interrupted with need for cardiac interventions over the past 2 months - Increased CEA, concern for progression, Restage, Await GI evalu - Restaging CT reviewed Plan: Restaging CTs concerning for recurrent, progressive metastatic cancer Status post scope with biopsy - results pending
--- NOTE | 2021-05-14 13:01 | P.PN ---
Subjective This is a pleasant 75-year-old female past medical history significant for coronary artery disease status post PCI proximal LAD and mid LAD 11/2020, ischemic cardiomyopathy status post AICD placement in 02/2021, dyslipidemia, hypertension, CVA. History of colon cancer diagnosed about 5 years ago in [place]. At that time the patient underwent bowel resection without colostomy and chemotherapy. Patient states that she went into remission however the cancer returned and she was restarted with chemotherapy. The chemotherapy was stopped approximately 4 months ago. She follows in the office with Dr. Nice. She is seen and examined sitting up in bed in no acute distress. She denies chest pain, shortness of breath, dizziness or palpitations. Blood pressure 94/48 heart rate 87 afebrile maintaining oxygen saturation on room air. Laboratory d martin reviewed, WBC 5.1, hemoglobin stable at 8.4, platelets 278, sodium 133, potassium 5.4 and creatinine 1.28. Limited echo on this admission reveals impaired LV systolic function with ejection fraction 30-35%. PHYSICAL EXAMINATION CONSTITUTIONAL: No apparent distress. HEENT: Neck Supple. No JVD. CHEST EXAMINATION: Lungs are clear to auscultation. HEART EXAMINATION: Regular rate and rhythm. S1, S2 heard. Systolic murmur at apex EXTREMITIES: 2+ peripheral pulses, no lower extremity edema and no calf tenderness. ASSESSMENT Dizziness, Lightheadedness Coronary artery disease status post PCI proximal LAD and mid LAD 11/2020 Ischemic cardiomyopathy status post single chamber AICD placement in 02/[address] Thomas History of nonsustained fast VT and nonsustained ventricular fibrillation with ICD shock in March 2021 Congestive systolic heart failure Dyslipidemia Hypertension CVA in February 2021 History of colon cancer s/p bowel resection without colostomy and chemotherapy Anemia- concerning for GIB Increased adenopathy concerning for recurrent cancer PLAN Hemoglobin stable on aspirin and Brilinta. Ongoing medical management and evaluation of anemia and possible adenopathy. No documentation of atrial fibrillation in the office or in the hospital thus far. Eliquis has been discontinued. Oncology following for likely progressive metastatic cancer, biopsy pending. We will follow along as needed, please call with further questions or concerns. Nurse Practitioner note has been reviewed, I agree with a documented findings and plan of care. Patient was seen and examined. Objective - Vital Signs Vital signs: Vital Signs Temp 98.0 F 05/14/21 08:00 Pulse 87 08/16/21 08:00 Resp 16 05/14/21 08:00 BP 94/48 05/14/21 08:00 Pulse Ox 99 05/14/21 08:00 Intake & Output 05/13/21 05/14/21 05/14/21 18:59 06:59 18:59 Intake Total 1060 120 Output Total 2 Balance 1060 118 Weight 58 kg Intake: Intake, IV Titration 100 Amount Sodium Ferric Gluconat- 100 Sucrose 125 mg In Sodium Chloride 0.9% 100 ml @ 100 mls/hr IVPB DAILY [facility] Rx#:[id number] Oral 960 120 Output: Stool 2 Other: Voiding Method Bedside Commode Bedside Commode # Voids 1 1 1 # Bowel Movements 1 1 - Labs CBC & Chem 7: 05/14/21 07:39 05/14/21 07:39 Labs: Abnormal Lab Results - Last 24 Hours (Table) 05/14/21 05/14/21 Range/Units 07:39 07:39 RBC 2.69 L (3.80-5.40) m/uL Hgb 8.4 L (11.4-16.0) gm/dL Hct 25.6 L (34.0-46.0) % RDW 17.8 H (11.5-15.5) % Lymphocytes # 0.4 L (1.0-4.8) k/uL Sodium 133 L (137-145) mmol/L Potassium 5.4 H (3.5-5.1) mmol/L Creatinine 1.28 H (0.52-1.04) mg/dL Glucose 105 H (74-99) mg/dL AST 52 H (14-36) U/L ALT 43 H (4-34) U/L Total Protein 5.3 L (6.3-8.2) g/dL Albumin 3.1 L (3.5-5.0) g/dL
--- NOTE | 2021-05-14 15:22 | P.PN ---
Subjective Progress Note Date: 05/14/21 Principal diagnosis: Anemia The patient is seen and examined lying in bed. She is status post EGD and colonoscopy by Dr. Sumner on 05/11/2021 with EGD findings of no active blee ding, old blood or pathology to explain anemia on EGD, Mild gastritis. Colonoscopy showed old hemolyzed blood throughout the entire visualized colon as well as into the small bowel past the anastomotic site. Prior partial colectomy/right colectomy with intact anastomosis. Moderate pandiverticulosis and internal hemorrhoids. The patient denies any abdominal pain, nausea, or vomiting. She states she is having loose brown stools. She was just started on a regular diet yesterday evening. She has been getting IV iron infusions. Hematology is following. Objective - Vital Signs Vital signs: Vital Signs Temp 98 F 05/14/21 04:40 Pulse 61 05/14/21 06:38 Resp 18 05/14/21 04:40 BP 107/65 05/14/21 04:40 Pulse Ox 97 05/14/21 04:40 Intake & Output 05/13/21 05/14/21 05/14/21 18:59 06:59 18:59 Intake Total 1060 120 Output Total 1 Balance 1060 119 Weight 58 kg Intake: Intake, IV Titration 100 Amount Sodium Ferric Gluconat- 100 Sucrose 125 mg In Sodium Chloride 0.9% 100 ml @ 100 mls/hr IVPB DAILY [facility] Rx#:[id number] Oral 960 120 Output: Stool 1 Other: Voiding Method Bedside Commode # Voids 1 1 1 # Bowel Movements 1 1 - Exam General appearance: The patient is alert, oriented, appears in no acute distress. HET: Head is normocephalic and atraumatic. Conjunctiva pink. Sclera anicteric. Neck: Supple without lymphadenopathy. Abdomen: Soft, nontender, nondistended with bowel sounds. No guarding or rigidity. Extremities: Normal skin color and turgor. No pedal edema Skin: No rashes, no jaundice Neurological: No focal deficits. Alert and oriented 3. - Labs CBC & Chem 7: 05/14/21 07:39 05/14/21 07:39 Labs: Abnormal Lab Results - Last 24 Hours (Table) 05/14/21 05/14/21 Range/Units 07:39 07:39 RBC 2.69 L (3.80-5.40) m/uL Hgb 8.4 L (11.4-16.0) gm/dL Hct 25.6 L (34.0-46.0) % RDW 17.8 H (11.5-15.5) % Lymphocytes # 0.4 L (1.0-4.8) k/uL Sodium 133 L (137-145) mmol/L Potassium 5.4 H (3.5-5.1) mmol/L Creatinine 1.28 H (0.52-1.04) mg/dL Glucose 105 H (74-99) mg/dL AST 52 H (14-36) U/L ALT 43 H (4-34) U/L Total Protein 5.3 L (6.3-8.2) g/dL Albumin 3.1 L (3.5-5.0) g/dL Assessment and Plan (1) Normochromic normocytic anemia Narrative/Plan: C 75-year-old female with multiple medical comorbidities including coronary artery disease with history of chronic atrial fibrillation and recent cardiac arrest. Patient recently had a AICD placed in February of this year as well as recent cardiac stent placements done earlier this year with a history of colon cancer diagnosed about 5 years ago in [place]. At that time the patient underwent bowel resection without colostomy and chemotherapy. Patient states that she went into remission however the cancer returned and she was restarted with chemotherapy. The chemotherapy was stopped approximately 4 months ago and follows with Dr. Cobos. She presented to the emergency department with complaints of dizziness, weakness, and syncope. Cardiology is following closely, she follows with a recording studio set up worker out of [facility]. The patient denies any signs of GI bleed, no hematemesis or coffee-ground emesis, no black stools or blood in her stool. She denies abdominal pain. She states that she has nausea but no vomiting. No complaints of recent weight loss, appetite has been decreased but is eating. Her last colonoscopy was reported harman harley 5 years ago prior to her diagnosis of colon cancer. She has not had a repeat colonoscopy since. She currently is taking Brilinta and Eliquis, she denies any NSAID use. She has no history of peptic ulcer disease and no previous EGD. Hematology will be consult that, we'll need to discuss with cardiology regarding possibility of stopping Eliquis and Brilinta and will need cardiac clearance for any endoscopic evaluation. Patient presents with a normochromic normocytic anemia, this may also be related to anemia of chronic disease. Iron studies will be ordered. Patient is status post EGD and colonoscopy. Current Visit: Yes Status: Acute Code(s): D64.9 - ANEMIA, UNSPECIFIED SNOMED Code(s): 94170466 (2) History of colon cancer Current Visit: No Status: Acute Code(s): Z85.038 - PERSONAL HISTORY OF MALIGNANT NEOPLASM OF LARGE INTESTINE SNOMED Code(s): 865925699 (3) Coronary artery disease Current Visit: Yes Status: Acute Code(s): I25.10 - ATHSCL HEART DISEASE OF [place] CORONARY ARTERY W/O ANG PCTRS SNOMED Code(s): 67324942 (4) History of chronic atrial fibrillation Current Visit: Yes Status: Acute Code(s): Z86.79 - PERSONAL HISTORY OF OTHER DISEASES OF THE CIRCULATORY SYSTEM SNOMED Code(s): 512194931 (5) Elevated troponin Current Visit: No Status: Acute Code(s): R77.8 - OTHER SPECIFIED ABNORMALITIES OF PLASMA PROTEINS SNOMED Code(s): 662592932 Plan: 1. Continue symptomatic and supportive care 2. Diet as tolerated 3. Patient is status post EGD and colonoscopy 4. Hematology on consult, following patient closely, awaiting bone marrow biop sy results 5. Patient is cleared for discharge from gastroenterology Thank you for this consultation, we will continue to follow. Dr. Connie Easton I agree with the dictator's note, documented as a scribe by Valerie Izaguirre.
[2021-05-14] MEDS: CYANOCOBALAMIN 500 MCG TAB PO SCH (15:43)
--- NOTE | 2021-05-14 19:37 | P.PN ---
Subjective Progress Note Date: 05/14/21 Hernan Contreras, is a 75-year-old female presented to [facility] emergency room with a chief complaint of dizziness, patient stated that she went to have a blood test at Dr. Cifuentes's office when she returned home she was feeling very dizzy and she fell down to her knees, she was helped to a chair by her family, she continued to feel dizzy, she describes her head floating in front of her, she describes difficulty looking to the sides due to feeling dizzy and feeling nauseated . She was evaluated in the emergency room, vital examination on presentation revealed a temperature of 98.6 pulse 60 respiration 20 blood pressure 119/52 pulse ox 99% on room air. Laboratory data in the emergency room revealed a white blood count of 7.8 hemoglobin 8.0 and a platelet count of 2:30 sodium 132 potassium 4.4 chloride 105 CO2 19 BUN 21 creatinine 1.02 troponin level 0.024 testing in the emergency room included an EKG that revealed a sinus rhythm with first-degree AV block and right bundle branch block and T-wave abnormality in the inferior leads chest x-ray revealed no acute abnormality, computed tomography scan of the brain revealed no acute hemorrhage or mass affect. Patient was admitted to telemetry floor for further evaluation, carotid Doppler was ordered, cardiology consultation was requested, gastroenterology consultation was requested in regard to anemia. Patient was recently admitted to [facility] after having a cardiac arrest and having her defibrillator firing, at that time she was having hypokalemia, patient has a known history of acute systolic congestive heart failure with ejection fraction of 25-30% she has underlying history of ventricular tachycardia and had an AICD placed in February 2021, she has a history of coronary artery disease with recent angioplasty and stent placement, she has a history of hypertension, hyperlipidemia, and a previous history of colon cancer. On 05/09/2021 patient alert and oriented 3. Hemoglobin today 5.9. 1 unit of PRBCs ordered. GI services are following with possible plans of endoscopic exams. Cardiology services are also following 2-D echo has been ordered. Brilinta and eliquis on hold. Carotid ultrasound completed showing no significant flow-limiting stenosis.Patient denies any nausea or vomiting. Patient denies any dark stool. Patient denies any urinary burning or frequency. Patient received IV Lasix 20 mg after each unit On 05/10/2021 Patient was seen and examined on the medical floor, he is alert and oriented x 3 in no distress, he denies any complaints there is no fever or chills no headache or dizziness no chest pain no shortness of breath no palpitation no cough no nausea or vomiting no abdominal pain no diarrhea no blood in the stools no burning with urination no frequency or urgency and no hematuria, there is no weakness or numbness in any of the extremities no change in vision speech or gait. Hemoglobin is up to 9.3 after 2 units of red blood transfusion, EGD and colonos copy are scheduled for tomorrow to assess for any source of bleeding. On 05/11/2020 Patient is alert and oriented 3. Hemoglobin 8.5. Plans for EGD and colonoscopy today. Patient did report bleeding with prep for colonoscopy. Patient denies any abdominal discomfort. Patient denies any nausea or vomiting. Patient denies any burning with urination. On 05/12/2021 Patient was seen and examined on the medical floor, he is alert and oriented x 3 in no distress, he denies any complaints there is no fever or chills no headache or dizziness no chest pain no shortness of breath no palpitation no cough no nausea or vomiting no abdominal pain no diarrhea no blood in the stools no burning with urination no frequency or urgency and no hematuria, there is no weakness or numbness in any of the extremities no change in vision speech or gait. EGD and colonoscopy results discussed with patient and family member at the bedside will continue to monitor hemoglobin closely will recheck labs in a.m. On 05/13/2021 patient is alert and oriented 3. Patient has been started back on her Brilinta and aspirin. No further episodes of bleeding. Patient is having some occasional nausea. Patient receiving IV iron. Computed tomography scan of abdomen and pelvis completed. Oncology services are following. Hemoglobin stable at 8.3. Repeat labs ordered. Patient denies chest pain. Patient denies nausea vomiting or diarrhea. Patient denies any urinary burning or frequency On 05/14/2021 Patient was seen and examined on the medical floor, he is alert and oriented x 3 in no distress, he denies any complaints there is no fever or chills no headache or dizziness no chest pain no shortness of breath no palpitation no cough no nausea or vomiting no abdominal pain no diarrhea no blood in the stools no burning with urination no frequency or urgency and no hematuria, there is no weakness or numbness in any of the extremities no change in vision speech or gait. Today his hemoglobin is 8.4 at this time we are awaiting further workup by oncology will follow closely Objective - Vital Signs Vital signs: Vital Signs Temp 98.0 F 05/14/21 12:00 Pulse 56 L 05/14/21 12:00 Resp 16 05/14/21 12:00 BP 109/52 05/14/21 12:00 Pulse Ox 99 05/14/21 12:00 Intake & Output 05/13/21 05/14/21 05/14/21 18:59 06:59 18:59 Intake Total 1060 120 Output Total 2 Balance 1060 118 Weight 58 kg Intake: Intake, IV Titration 100 Amount Sodium Ferric Gluconat- 100 Sucrose 125 mg In Sodium Chloride 0.9% 100 ml @ 100 mls/hr IVPB DAILY [facility] Rx#:[id number] Oral 960 120 Output: Stool 2 Other: Voiding Method Bedside Commode Bedside Commode # Voids 1 1 1 # Bowel Movements 1 1 - Exam In general patient is alert and oriented x 3 in no distress HEENT head normocephalic and atraumatic Neck is supple no JVD no goiter no lymphadenopathy no carotid bruit Chest examination is clear to auscultation no crackles no wheezing Cardiac exam reveals regular heart sounds S1 and S2 no gallops no murmurs Abdomen is soft nontender no organomegaly with normal bowel sounds Extremity exam reveals no edema no cyanosis or clubbing Neurological examination reveals no gross focal deficits - Labs CBC & Chem 7: 05/14/21 07:39 05/14/21 07:39 Labs: Abnormal Lab Results - Last 24 Hours (Table) 05/14/21 05/14/21 Range/Units 07:39 07:39 RBC 2.69 L (3.80-5.40) m/uL Hgb 8.4 L (11.4-16.0) gm/dL Hct 25.6 L (34.0-46.0) % RDW 17.8 H (11.5-15.5) % Lymphocytes # 0.4 L (1.0-4.8) k/uL Sodium 133 L (137-145) mmol/L Potassium 5.4 H (3.5-5.1) mmol/L Creatinine 1.28 H (0.52-1.04) mg/dL Glucose 105 H (74-99) mg/dL AST 52 H (14-36) U/L ALT 43 H (4-34) U/L Total Protein 5.3 L (6.3-8.2) g/dL Albumin 3.1 L (3.5-5.0) g/dL Assessment and Plan Plan: 1. Dizziness and lightheadedness, cause is unclear could be related to inner ear vertigo, Antivert was ordered, will check carotid Doppler 2. Episode of presyncope with falling down to her knees at home prior to presentation 3. Anemia hemoglobin down to 8.0 her hemoglobin was 10.5 on 04/20/2021 patient is maintained on Eliquis and Brillinta, status post 2 units of PRBCs. Status post colonoscopy and EGD findings below 4. Underlying history of coronary artery disease, EKG is abnormal and first troponin level is slightly elevated, will check troponin again, cardiology consult was requested 5. Underlying history of cardiomyopathy with ejection fraction of 25-30% 6. Hypotension which may be contributing to patient feeling of dizziness cardiology consultation was requested to reevaluate cardiac medications 7. Underlying history of hyperlipidemia maintained on Pravachol 80 mg once daily 8. History of colon cancer. 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 Stable small round hyperdensities in the liver there is new small left pleural effusion minimal atelectasis at the lung bases. Oncology services are following Home medications reviewed and reordered Cardiology and gastroenterology consultation requested Carotid Doppler completed showing no flow-limiting stenosis Echocardiogram was done recently, no need to repeat at this time Status post 2 units of PRBCs Status post EGD and colonoscopy on 05/11/2021 showing no active bleeding mild gastritis Will follow closely
[2021-05-14] MEDS: PRAVASTATIN SODIUM 80 MG TAB PO SCH (21:09)
[2021-05-14] MEDS: LATANOPROST 0.005% OPHTH DROPS 2.5 ML BTL LEFT EYE SCH (21:10)
[2021-05-15] MEDS: PANTOPRAZOLE 40 MG TABLET PO SCH (06:38)
[2021-05-15] MEDS: carvediloL 6.25 MG TAB PO SCH ×2 (06:38→16:20)
[2021-05-15] MEDS: SPIRONOLACTONE 25 MG TAB PO SCH (08:48)
[2021-05-15] MEDS: POTASSIUM CHLORIDE ER 20 MEQ TAB.ER PO SCH (08:48)
[2021-05-15] MEDS: ASPIRIN 81 MG PO SCH (08:48)
[2021-05-15] MEDS: MAGNESIUM OXIDE 400 MG TAB PO SCH ×2 (08:48→22:23)
[2021-05-15] MEDS: CYANOCOBALAMIN 500 MCG TAB PO SCH (08:48)
[2021-05-15] MEDS: TICAGRELOR 90 MG TAB PO SCH ×2 (08:48→22:24)
[2021-05-15] MEDS: AMIODARONE 200 MG TAB PO SCH ×2 (08:48→22:24)
[2021-05-15] MEDS: TIMOLOL 0.5% OPHTH DROPS 5 ML BTL LEFT EYE SCH ×2 (08:49→22:25)
[2021-05-15] MEDS: SACUBITRIL/VALSARTAN 24 MG-26 MG TABLET PO SCH ×2 (08:49→22:35)
[2021-05-15] MEDS: prednisoLONE ACETATE 1% OPHTH DROPS 5 ML BTL RIGHT EYE SCH (08:50)
[2021-05-15] MEDS: BRIMONIDINE TARTRATE 0.2% DROPS 5 ML BTL LEFT EYE SCH ×2 (08:50→22:25)
[2021-05-15 09:28] LABS: Anisocytosis Slight; Basophils % (A) 0 %; Eosinophils # (A) 0.1 k/uL (0-0.7); Eosinophils % (A) 2 %; HCT 27.5 % (34.0-46.0); Hypochromasia Slight; Lymphocytes # (A) 0.4 k/uL (1.0-4.8); Lymphocytes % (A) 6 %; MCH 32.1 pg (25.0-35.0); MCHC 32.7 g/dL (31.0-37.0); MCV 98.2 fL (80.0-100.0); Macrocytosis Slight; Mean Platelet Volume 8.6; Monocytes # (A) 0.3 k/uL (0-1.0); Monocytes % (A) 5 %; Neutrophils # (A) 5.3 k/uL (1.3-7.7); Neutrophils % (A) 85 %; Platelet Count 303 k/uL (150-450); RDW 17.7 % (11.5-15.5); WBC 6.2 k/uL (3.8-10.6)
[2021-05-15 09:44] LABS: Calcium 9.2 mg/dL (8.4-10.2); Potassium 4.8 mmol/L (3.5-5.1)
[2021-05-15 11:36] VITALS: BMI 24.6
--- NOTE | 2021-05-15 18:42 | P.PN ---
Subjective Progress Note Date: 05/15/21 Hernan Contreras, is a 75-year-old female presented to [facility] emergency room with a chief complaint of dizziness, patient stated that she went to have a blood test at Dr. Cifuentes's office when she returned home she was feeling very dizzy and she fell down to her knees, she was helped to a chair by her family, she continued to feel dizzy, she describes her head floating in front of her, she describes difficulty looking to the sides due to feeling dizzy and feeling nauseated . She was evaluated in the emergency room, vital examination on presentation revealed a temperature of 98.6 pulse 60 respiration 20 blood pressure 119/52 pulse ox 99% on room air. Laboratory data in the emergency room revealed a white blood count of 7.8 hemoglobin 8.0 and a platelet count of 2:30 sodium 132 potassium 4.4 chloride 105 CO2 19 BUN 21 creatinine 1.02 troponin level 0.024 testing in the emergency room included an EKG that revealed a sinus rhythm with first-degree AV block and right bundle branch block and T-wave abnormality in the inferior leads chest x-ray revealed no acute abnormality, computed tomography scan of the brain revealed no acute hemorrhage or mass affect. Patient was admitted to telemetry floor for further evaluation, carotid Doppler was ordered, cardiology consultation was requested, gastroenterology consultation was requested in regard to anemia. Patient was recently admitted to [facility] after having a cardiac arrest and having her defibrillator firing, at that time she was having hypokalemia, patient has a known history of acute systolic congestive heart failure with ejection fraction of 25-30% she has underlying history of ventricular tachycardia and had an AICD placed in February 2021, she has a history of coronary artery disease with recent angioplasty and stent placement, she has a history of hypertension, hyperlipidemia, and a previous history of colon cancer. On 05/09/2021 patient alert and oriented 3. Hemoglobin today 5.9. 1 unit of PRBCs ordered. GI services are following with possible plans of endoscopic exams. Cardiology services are also following 2-D echo has been ordered. Brilinta and eliquis on hold. Carotid ultrasound completed showing no significant flow-limiting stenosis.Patient denies any nausea or vomiting. Patient denies any dark stool. Patient denies any urinary burning or frequency. Patient received IV Lasix 20 mg after each unit On 05/10/2021 Patient was seen and examined on the medical floor, he is alert and oriented x 3 in no distress, he denies any complaints there is no fever or chills no headache or dizziness no chest pain no shortness of breath no palpitation no cough no nausea or vomiting no abdominal pain no diarrhea no blood in the stools no burning with urination no frequency or urgency and no hematuria, there is no weakness or numbness in any of the extremities no change in vision speech or gait. Hemoglobin is up to 9.3 after 2 units of red blood transfusion, EGD and colonos copy are scheduled for tomorrow to assess for any source of bleeding. On 05/11/2020 Patient is alert and oriented 3. Hemoglobin 8.5. Plans for EGD and colonoscopy today. Patient did report bleeding with prep for colonoscopy. Patient denies any abdominal discomfort. Patient denies any nausea or vomiting. Patient denies any burning with urination. On 05/12/2021 Patient was seen and examined on the medical floor, he is alert and oriented x 3 in no distress, he denies any complaints there is no fever or chills no headache or dizziness no chest pain no shortness of breath no palpitation no cough no nausea or vomiting no abdominal pain no diarrhea no blood in the stools no burning with urination no frequency or urgency and no hematuria, there is no weakness or numbness in any of the extremities no change in vision speech or gait. EGD and colonoscopy results discussed with patient and family member at the bedside will continue to monitor hemoglobin closely will recheck labs in a.m. On 05/13/2021 patient is alert and oriented 3. Patient has been started back on her Brilinta and aspirin. No further episodes of bleeding. Patient is having some occasional nausea. Patient receiving IV iron. Computed tomography scan of abdomen and pelvis completed. Oncology services are following. Hemoglobin stable at 8.3. Repeat labs ordered. Patient denies chest pain. Patient denies nausea vomiting or diarrhea. Patient denies any urinary burning or frequency On 05/14/2021 Patient was seen and examined on the medical floor, he is alert and oriented x 3 in no distress, he denies any complaints there is no fever or chills no headache or dizziness no chest pain no shortness of breath no palpitation no cough no nausea or vomiting no abdominal pain no diarrhea no blood in the stools no burning with urination no frequency or urgency and no hematuria, there is no weakness or numbness in any of the extremities no change in vision speech or gait. Today his hemoglobin is 8.4 at this time we are awaiting further workup by oncology will follow closely. On 05/15/2021 Patient was seen and examined on the medical floor, he is alert and oriented x 3 in no distress, he denies any complaints there is no fever or chills no headache or dizziness no chest pain no shortness of breath no palpitation no cough no nausea or vomiting no abdominal pain no diarrhea no blood in the stools no burning with urination no frequency or urgency and no hematuria, there is no weakness or numbness in any of the extremities no change in vision speech or gait. Patient is still feeling very tired, possible discharge to home tomorrow Objective - Vital Signs Vital signs: Vital Signs Temp 98.1 F 05/15/21 12:00 Pulse 55 L 05/15/21 12:00 Resp 18 05/15/21 12:00 BP 103/51 05/15/21 12:00 Pulse Ox 98 05/15/21 12:00 Intake & Output 05/14/21 05/15/21 05/15/21 18:59 06:59 18:59 Intake Total 1018 120 Output Total 503 Balance 515 120 Weight 57.3 kg 57.3 kg Intake: Oral 1018 120 Output: Urine 500 Stool 3 Other: Voiding Method Bedside Commode Bedside Commode # Voids 1 1 1 # Bowel Movements 1 1 - Exam In general patient is alert and oriented x 3 in no distress HEENT head normocephalic and atraumatic Neck is supple no JVD no goiter no lymphadenopathy no carotid bruit Chest examination is clear to auscultation no crackles no wheezing Cardiac exam reveals regular heart sounds S1 and S2 no gallops no murmurs Abdomen is soft nontender no organomegaly with normal bowel sounds Extremity exam reveals no edema no cyanosis or clubbing Neurological examination reveals no gross focal deficits - Labs CBC & Chem 7: 05/15/21 09:06 05/15/21 09:06 Labs: Abnormal Lab Results - Last 24 Hours (Table) 05/15/21 05/15/21 Range/Units 09:06 09:06 RBC 2.80 L (3.80-5.40) m/uL Hgb 9.0 L (11.4-16.0) gm/dL Hct 27.5 L (34.0-46.0) % RDW 17.7 H (11.5-15.5) % Lymphocytes # 0.4 L (1.0-4.8) k/uL Sodium 133 L (137-145) mmol/L Carbon Dioxide 20 L (22-30) mmol/L Creatinine 1.30 H (0.52-1.04) mg/dL Glucose 143 H (74-99) mg/dL Assessment and Plan Plan: 1. Dizziness and lightheadedness, cause is unclear could be related to inner ear vertigo, Antivert was ordered, will check carotid Doppler 2. Episode of presyncope with falling down to her knees at home prior to presentation 3. Anemia hemoglobin down to 8.0 her hemoglobin was 10.5 on 04/20/2021 patient i s maintained on Eliquis and Brillinta, status post 2 units of PRBCs. Status post colonoscopy and EGD findings below 4. Underlying history of coronary artery disease, EKG is abnormal and first troponin level is slightly elevated, will check troponin again, cardiology consult was requested 5. Underlying history of cardiomyopathy with ejection fraction of 25-30% 6. Hypotension which may be contributing to patient feeling of dizziness cardiology consultation was requested to reevaluate cardiac medications 7. Underlying history of hyperlipidemia maintained on Pravachol 80 mg once daily 8. History of colon cancer. 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 Stable small round hyperdensities in the liver there is new small left pleural effusion minimal atelectasis at the lung bases. Oncology services are following Home medications reviewed and reordered Cardiology and gastroenterology consultation requested Carotid Doppler completed showing no flow-limiting stenosis Echocardiogram was done recently, no need to repeat at this time Status post 2 units of PRBCs Status post EGD and colonoscopy on 05/11/2021 showing no active bleeding mild gastritis Will follow closely
[2021-05-15] MEDS: LATANOPROST 0.005% OPHTH DROPS 2.5 ML BTL LEFT EYE SCH (22:24)
[2021-05-15] MEDS: PRAVASTATIN SODIUM 80 MG TAB PO SCH (22:35)
[2021-05-16] MEDS: PANTOPRAZOLE 40 MG TABLET PO SCH (06:47)
[2021-05-16] MEDS: carvediloL 6.25 MG TAB PO SCH (06:47)
[2021-05-16 08:11] VITALS: BP 122/75; PULSE 64; RESP 18; TEMP 98.1
[2021-05-16] MEDS: SPIRONOLACTONE 25 MG TAB PO SCH (08:47)
[2021-05-16] MEDS: POTASSIUM CHLORIDE ER 20 MEQ TAB.ER PO SCH (08:47)
[2021-05-16] MEDS: AMIODARONE 200 MG TAB PO SCH (08:47)
[2021-05-16] MEDS: ASPIRIN 81 MG PO SCH (08:47)
[2021-05-16] MEDS: TICAGRELOR 90 MG TAB PO SCH (08:47)
[2021-05-16] MEDS: SACUBITRIL/VALSARTAN 24 MG-26 MG TABLET PO SCH (08:47)
[2021-05-16] MEDS: BRIMONIDINE TARTRATE 0.2% DROPS 5 ML BTL LEFT EYE SCH (08:48)
[2021-05-16] MEDS: CYANOCOBALAMIN 500 MCG TAB PO SCH (08:48)
[2021-05-16] MEDS: MAGNESIUM OXIDE 400 MG TAB PO SCH (08:48)
[2021-05-16] MEDS: TIMOLOL 0.5% OPHTH DROPS 5 ML BTL LEFT EYE SCH (08:48)
[2021-05-16] MEDS: prednisoLONE ACETATE 1% OPHTH DROPS 5 ML BTL RIGHT EYE SCH (08:49)
--- NOTE | 2021-05-16 11:14 | P.DS ---
Providers Date of admission: 05/09/21 11:51 Expected date of discharge: 05/16/21 Attending physician: Ritu Walker Consults: 05/08/21 10:53 Consult Physician Routine Consulting Provider: Clary Nice Consult Reason/Comments: dizziness Do you want consulting provider notified?: Yes 05/08/21 15:45 Consult Physician Routine Consulting Provider: Dutch Cobos Consult Reason/Comments: anemia, hx colon CA follows with Dr. Cobos Do you want consulting provider notified?: Yes Primary care physician: Crystal Cifuentes [facility] Course: Discharge diagnosis 1. Dizziness and lightheadedness, cause is unclear could be related to inner ear vertigo, Antivert was ordered, will check carotid Doppler 2. Episode of presyncope with falling down to her knees at home prior to presentation 3. Anemia hemoglobin down to 8.0 her hemoglobin was 10.5 on 04/20/2021 patient is maintained on Eliquis and Brillinta, status post 2 units of PRBCs. Status post colonoscopy and EGD findings below 4. Underlying history of coronary artery disease, EKG is abnormal and first troponin level is slightly elevated, will check troponin again, cardiology consult was requested 5. Underlying history of cardiomyopathy with ejection fraction of 25-30% 6. Hypotension which may be contributing to patient feeling of dizziness cardiology consultation was requested to reevaluate cardiac medications 7. Underlying history of hyperlipidemia maintained on Pravachol 80 mg once daily 8. History of colon cancer. 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 Stable small round hyperdensities in the liver there is new small left pleural effusion minimal atelectasis at the lung bases. Oncology services are following Home medications reviewed and reordered Cardiology and gastroenterology consultation requested Carotid Doppler completed showing no flow-limiting stenosis Echocardiogram was done recently, no need to repeat at this time Status post 2 units of PRBCs Status post EGD and colonoscopy on 05/11/2021 showing no active bleeding mild gastritis Will follow closely Hospital course Hernan Contreras, is a 75-year-old female presented to [facility] emergency room with a chief complaint of dizziness, patient stated that she went to have a blood test at Dr. Cifuentes's office when she returned home she was feeling very dizzy and she fell down to her knees, she was helped to a chair by her family, she continued to feel dizzy, she describes her head floating in front of her, she describes difficulty looking to the sides due to feeling dizzy and feeling nauseated . She was evaluated in the emergency room, vital examination on presentation revealed a temperature of 98.6 pulse 60 respiration 20 blood pressure 119/52 pulse ox 99% on room air. Laboratory data in the emergency room revealed a white blood count of 7.8 hemoglobin 8.0 and a platelet count of 2:30 sodium 132 potassium 4.4 chloride 105 CO2 19 BUN 21 creatinine 1.02 troponin level 0.024 testing in the emergency room included an EKG that revealed a sinus rhythm with first-degree AV block and right bundle branch block and T-wave abnormality in the inferior leads chest x-ray revealed no acute abnormality, computed tomography scan of the brain revealed no acute hemorrhage or mass affect. Patient was admitted to telemetry floor for further evaluation, carotid Doppler was ordered, cardiology consultation was requested, gastroenterology consultation was requested in regard to anemia. Patient was recently admitted to [facility] after having a cardiac arrest and having her defibrillator firing, at that time she was having hypokalemia, patient has a known history of acute systolic congestive heart failure with ejection fraction of 25-30% she has underlying history of ventricular tachycardia and had an AICD placed in February 2021, she has a history of coronary artery disease with recent angioplasty and stent placement, she has a history of hypertension, hyperlipidemia, and a previous history of colon cancer. On 05/09/2021 patient alert and oriented 3. Hemoglobin today 5.9. 1 unit of PRBCs ordered. GI services are following with possible plans of endoscopic exams. Cardiology services are also following 2-D echo has been ordered. Romy on hold. Carotid ultrasound completed showing no significant flow-limiting stenosis.Patient denies any nausea or vomiting. Patient denies any dark stool. Patient denies any urinary burning or frequency. Patient received IV Lasix 20 mg after each unit On 05/10/2021 Patient was seen and examined on the medical floor, he is alert and oriented x 3 in no distress, he denies any complaints there is no fever or chills no headache or dizziness no chest pain no shortness of breath no palpitation no cough no nausea or vomiting no abdominal pain no diarrhea no blood in the stools no burning with urination no frequency or urgency and no hematuria, there is no weakness or numbness in any of the extremities no change in vision speech or gait. Hemoglobin is up to 9.3 after 2 units of red blood transfusion, EGD and colonoscopy are scheduled for tomorrow to assess for any source of bleeding. On 05/11/2020 Patient is alert and oriented 3. Hemoglobin 8.5. Plans for EGD and colonoscopy today. Patient did report bleeding with prep for colonoscopy. Patient denies any abdominal discomfort. Patient denies any nausea or vomiting. Patient denies any burning with urination. On 05/12/2021 Patient was seen and examined on the medical floor, he is alert and oriented x 3 in no distress, he denies any complaints there is no fever or chills no headache or dizziness no chest pain no shortness of breath no palpitation no cough no nausea or vomiting no abdominal pain no diarrhea no blood in the stools no burning with urination no frequency or urgency and no hematuria, there is no weakness or numbness in any of the extremities no change in vision speech or gait. EGD and colonoscopy results discussed with patient and family member at the bedside will continue to monitor hemoglobin closely will recheck labs in a.m. On 05/13/2021 patient is alert and oriented 3. Patient has been started back on her Brilinta and aspirin. No further episodes of bleeding. Patient is having some occasional nausea. Patient receiving IV iron. Computed tomography scan of abdomen and pelvis completed. Oncology services are following. Hemoglobin stable at 8.3. Repeat labs ordered. Patient denies chest pain. Patient denies nausea vomiting or diarrhea. Patient denies any urinary burning or frequency On 05/14/2021 Patient was seen and examined on the medical floor, he is alert and oriented x 3 in no distress, he denies any complaints there is no fever or chills no headache or dizziness no chest pain no shortness of breath no palpitation no cough no nausea or vomiting no abdominal pain no diarrhea no blood in the stools no burning with urination no frequency or urgency and no hematuria, there is no weakness or numbness in any of the extremities no change in vision speech or gait. Today his hemoglobin is 8.4 at this time we are awaiting further workup by oncology will follow closely. On 05/15/2021 Patient was seen and examined on the medical floor, he is alert and oriented x 3 in no distress, he denies any complaints there is no fever or chills no headache or dizziness no chest pain no shortness of breath no palpitation no cough no nausea or vomiting no abdominal pain no diarrhea no blood in the stools no burning with urination no frequency or urgency and no hematuria, there is no weakness or numbness in any of the extremities no change in vision speech or gait. Patient is still feeling very tired, possible discharge to home tomorrow On 05/16/2021 patient is alert and oriented 3. Patient reports that she feels significantly improved and ready to be DC'd home. Patient educated reports the following up with PCP and consulting providers for further management chronic conditions. At this time patient denies chest pain or shortness breath. Patient denies nausea vomiting or diarrhea. Patient denies any urinary burning or frequency Patient Condition at Discharge: Stable Plan - Discharge Summary Discharge Rx Participant: Yes New Discharge Prescriptions: New Amiodarone [Cordarone] 200 mg PO BID tab Meclizine [Antivert] 25 mg PO TID PRN tab PRN Reason: Vertigo Cyanocobalamin [Vitamin B-12] 500 mcg PO DAILY tab Continue Loteprednol Etabonate [Inveltys] 1 drop RIGHT EYE DAILY Brimonidine Tartrate/Timolol [Combigan 0.2%-0.5% Eye Drops] 1 drop LEFT EYE BID Bimatoprost [Lumigan .01% Ophth Soln] 1 drop LEFT EYE HS Ticagrelor [Brilinta] 90 mg PO BID Magnesium Oxide [Mag-Ox] 400 mg PO BID 30 Days #60 tablet Pravastatin Sodium [Pravachol] 80 mg PO HS Pantoprazole Sodium [Protonix] 40 mg PO DAILY Spironolactone [Aldactone] 50 mg PO DAILY 30 Days #60 tab carvediloL [Coreg*] 12.5 mg PO BID-W/MEALS 30 Days #60 tab Potassium Chloride ER [K-Dur 20] 20 meq PO DAILY 20 Days #20 tab.er.prt Prochlorperazine [Compazine] 5 mg PO Q6HR PRN 2 Days #8 tab PRN Reason: Nausea Sacubitril/Valsartan [Entresto 24 mg-26 mg Tablet] 1 tab PO BID Discontinued Apixaban [Eliquis] 5 mg PO BID Amiodarone [Cordarone] 400 mg PO BID #120 tab Discharge Medication List Bimatoprost [Lumigan .01% Ophth Soln] 1 drop LEFT EYE HS 02/27/21 [History] Brimonidine Tartrate/Timolol [Combigan 0.2%-0.5% Eye Drops] 1 drop LEFT EYE BID 02/27/21 [History] Loteprednol Etabonate [Inveltys] 1 drop RIGHT EYE DAILY 02/27/21 [History] Pantoprazole Sodium [Protonix] 40 mg PO DAILY 02/27/21 [History] Pravastatin Sodium [Pravachol] 80 mg PO HS 02/27/21 [History] Ticagrelor [Brilinta] 90 mg PO BID 02/27/21 [History] Potassium Chloride ER [K-Dur 20] 20 meq PO DAILY 20 Days #20 tab.er.prt 04/19/21 [Rx] Spironolactone [Aldactone] 50 mg PO DAILY 30 Days #60 tab 04/19/21 [Rx] carvediloL [Coreg*] 12.5 mg PO BID-W/MEALS 30 Days #60 tab 04/19/21 [Rx] Magnesium Oxide [Mag-Ox] 400 mg PO BID 30 Days #60 tablet 04/20/21 [Rx] Prochlorperazine [Compazine] 5 mg PO Q6HR PRN 2 Days #8 tab 04/20/21 [Rx] Sacubitril/Valsartan [Entresto 24 mg-26 mg Tablet] 1 tab PO BID 05/07/21 [History] Amiodarone [Cordarone] 200 mg PO BID tab 05/08/21 [Rx] Cyanocobalamin [Vitamin B-12] 500 mcg PO DAILY tab 05/15/21 [Rx] Meclizine [Antivert] 25 mg PO TID PRN tab 05/15/21 [Rx] Follow up Appointment(s)/Referral(s): Marck Cheema MD [STAFF PHYSICIAN] - 1 Week (Office will call you with an appointment. ) Crystal Cifuentes MD [Primary Care Provider] - 1-2 days [facility], [NON-STAFF] - Discharge Disposition: HOME WITH HOME HEALTH SERVICES
--- NOTE | 2021-05-16 12:37 | P.PN ---
Subjective Progress Note Date: 05/16/21 Principal diagnosis: Anemia After discussion with Cardiology at this time and at discharge it is ok to hold brilinta given the evidenced blood found in the small bowel on endoscopy. We will see Mrs. Contreras in office next week to discuss her recent CT scan and concern of progression. Objective - Vital Signs Vital signs: Vital Signs Temp 98.1 F 05/16/21 08:00 Pulse 64 05/16/21 08:00 Resp 18 05/16/21 08:00 BP 122/75 05/16/21 08:00 Pulse Ox 98 05/16/21 08:00 Intake & Output 05/15/21 05/16/21 05/16/21 18:59 06:59 18:59 Intake Total 600 100 Balance 600 100 Weight 57.3 kg 58.1 kg Intake: Oral 600 100 Other: Voiding Method Bedside Commode # Voids 2 2 # Bowel Movements 1 - Labs CBC & Chem 7: 05/15/21 09:06 05/15/21 09:06 Assessment and Plan (1) Metastatic colorectal cancer Current Visit: Yes Status: Acute Code(s): C19 - MALIGNANT NEOPLASM OF RECTOSIGMOID JUNCTION SNOMED Code(s): 85518526 (2) Anemia Current Visit: Yes Status: Acute Code(s): D64.9 - ANEMIA, UNSPECIFIED SNOMED Code(s): 216842007 (3) Vertigo Current Visit: Yes Status: Acute Code(s): R42 - DIZZINESS AND GIDDINESS SNOMED Code(s): 468594431 Plan: Assessment and Recommendations: Symptomatic Anemia: - Need to assess for bleeding, recurrent or progressive cancer, hemolysis - Status Post GI Eval with biopsy - Iron studies prior to transfusion - Repeat CBC in am Metastatic Colon Cancer: - Treatment interrupted and restaging interrupted with need for cardiac interventions over the past 2 months - Increased CEA, concern for progression, - Restaging CT reviewed, Restaging CTs concerning for recurrent, progressive metastatic cancer Status post scope with biopsy - results pending Plan: After discussion with Cardiology at this time and at discharge it is ok to hold brilinta given the evidenced blood found in the small bowel on endoscopy. We will see Mrs. Contreras in office next week to discuss her recent CT scan and concern of progression. Spoke with nursing 05/15 to confirm our clearance for discharge and follow-up appt o be made.
== END 2021-05-16 12:48 | disposition home health service (06) | DRG 811 ==
LOC: EC 13:15 → 6NMEDSUR 15:51 → OBSVTOIN 05-09 11:51 → 3SCARD 05-09 16:53
PROVIDERS: ADMIT Internal Medicine; ATTEND Internal Medicine
PROC: 30233N1 Transfusion of Nonautologous Red Blood Cells into Peripheral Vein, Percutaneous Approach (ICD-10-PCS; 2021-05-09)
PROC: 0DB98ZX Excision of Duodenum, Via Natural or Artificial Opening Endoscopic, Diagnostic (ICD-10-PCS; 2021-05-11)
PROC: 0DB68ZX Excision of Stomach, Via Natural or Artificial Opening Endoscopic, Diagnostic (ICD-10-PCS; principal; 2021-05-11 13:30)
PROC: 0DJD8ZZ Inspection of Lower Intestinal Tract, Via Natural or Artificial Opening Endoscopic (ICD-10-PCS; 2021-05-11 13:30)
DX: D50.9 Iron deficiency anemia, unspecified (principal); I49.01 Ventricular fibrillation; C19 Malignant neoplasm of rectosigmoid junction; C79.9 Secondary malignant neoplasm of unspecified site; E87.1 Hypo-osmolality and hyponatremia; I50.22 Chronic systolic (congestive) heart failure; I47.2 Ventricular tachycardia; I48.20 Chronic atrial fibrillation, unspecified; E53.8 Deficiency of other specified B group vitamins; E78.5 Hyperlipidemia, unspecified; E87.6 Hypokalemia; Z86.79 Personal history of other diseases of the circulatory system; G62.9 Polyneuropathy, unspecified; I11.0 Hypertensive heart disease with heart failure; K29.70 Gastritis, unspecified, without bleeding; I25.10 Atherosclerotic heart disease of native coronary artery without angina pectoris; I25.2 Old myocardial infarction; I25.5 Ischemic cardiomyopathy; I44.0 Atrioventricular block, first degree; I45.10 Unspecified right bundle-branch block; I95.9 Hypotension, unspecified; R42 Dizziness and giddiness; R59.9 Enlarged lymph nodes, unspecified; R55 Syncope and collapse; K31.7 Polyp of stomach and duodenum; K57.30 Diverticulosis of large intestine without perforation or abscess without bleeding; K64.8 Other hemorrhoids; Z79.01 Long term (current) use of anticoagulants; Z79.02 Long term (current) use of antithrombotics/antiplatelets; Z79.82 Long term (current) use of aspirin; Z79.899 Other long term (current) drug therapy; Z86.73 Personal history of transient ischemic attack (TIA), and cerebral infarction without residual deficits; Z95.5 Presence of coronary angioplasty implant and graft; Z95.810 Presence of automatic (implantable) cardiac defibrillator; Z88.5 Allergy status to narcotic agent; Z85.048 Personal history of other malignant neoplasm of rectum, rectosigmoid junction, and anus; Z85.038 Personal history of other malignant neoplasm of large intestine; Z98.41 Cataract extraction status, right eye; Z90.49 Acquired absence of other specified parts of digestive tract; Z87.19 Personal history of other diseases of the digestive system
CPT/HCPCS: 36415; 43239; 45378; 70450; 70460; 71046; 71260; 74177; 80048; 80053; 82378; 82607; 82728; 82746; 83010; 83540; 83550; 83615; 83735; 83921; 84484; 85025; 85027; 85045; 85610; 85730; 86850; 86900; 86901; 86920; 88305; 93005; 93308; 93880; 99285

== ENCOUNTER 2021-05-24 06:25 | Inpatient (IN) | payer MEDICARE ==
[2021-05-24 07:06] LABS: Anisocytosis Slight; Basophils % (A) 1 %; Eosinophils # (A) 0.2 k/uL (0-0.7); Eosinophils % (A) 2 %; HCT 31.3 % (34.0-46.0); HGB 10.2 gm/dL (11.4-16.0); Hypochromasia Slight; Lymphocytes # (A) 0.4 k/uL (1.0-4.8); Lymphocytes % (A) 5 %; MCH 31.7 pg (25.0-35.0); MCHC 32.5 g/dL (31.0-37.0); MCV 97.6 fL (80.0-100.0); Macrocytosis Slight; Mean Platelet Volume 8.2; Monocytes # (A) 0.4 k/uL (0-1.0); Monocytes % (A) 4 %; Neutrophils # (A) 7.1 k/uL (1.3-7.7); Neutrophils % (A) 87 %; Platelet Count 402 k/uL (150-450); RDW 16.8 % (11.5-15.5); WBC 8.2 k/uL (3.8-10.6)
[2021-05-24 07:14] LABS: Albumin 3.6 g/dL (3.5-5.0); Magnesium 2.4 mg/dL (1.6-2.3); Total Bilirubin 0.6 mg/dL (0.2-1.3); Total Protein 6.4 g/dL (6.3-8.2)
[2021-05-24 07:24] LABS: Potassium 6.4 mmol/L (3.5-5.1)
[2021-05-24] MEDS ORDERED: ALBUTEROL NEB (CONC) 2.5 MG/0.5 ML INHALATION ONE (07:29)
[2021-05-24] MEDS ORDERED: INSULIN REGULAR 100 UNIT/ML VIAL (IV) IV ONE (07:34)
[2021-05-24] MEDS ORDERED: DEXTROSE 50% SYRINGE 50 ML IVP ONE (07:34)
[2021-05-24] MEDS ORDERED: SODIUM BICARB 8.4% 50 ML SYR (1 MEQ/ML) IV ONE (07:34)
[2021-05-24] MEDS ORDERED: SODIUM CHLORIDE 0.9% 1,000 ML IV STA (07:38)
[2021-05-24] MEDS ORDERED: CALCIUM GLUCONATE 1 GM in SODIUM CHLORIDE 0.9% 100 ML IVPB ONE (07:45)
[2021-05-24] MEDS ORDERED: ACETAMINOPHEN TAB 325 MG TAB PO PRN (07:52)
[2021-05-24] MEDS ORDERED: NALOXONE 0.4 MG/ML 1 ML VIAL IV PRN (07:52)
[2021-05-24] MEDS ORDERED: ONDANSETRON 4 MG/2 ML VIAL IVP PRN (07:52)
--- NOTE | 2021-05-24 07:56 | ED ---
Recheck HPI - General Chief Complaint: Recheck/Abnormal Lab/Rx Stated Complaint: high potassium sent by Time Seen by Provider: 05/24/21 06:35 Source: patient Mode of arrival: ambulatory Limitations: no limitations - History of Present Illness Initial Comments: Patient is a 75-year-old female with history of A. fib, heart failure, anemia, presenting to emergency Department with complaints of having an elevated potassium. She is currently undergoing treatment for colon cancer as well, her oncologist is Dr. Cobos. She had a blood work drawn yesterday by visiting nurse, they called her this morning stating her potassium was 6.8 and going to the ER. Patient has no specific complaints today. She states she has been doing well. She was recently admitted for anemia, had a blood transfusion. Is no current active bleeding. No chest pain or shortness of breath, no abdominal pain, no nausea or vomiting. She has no further complaints at this time. Upon arrival to the ER her vitals are stable. - Related Data Home Medications Medication Instructions Recorded Confirmed Bimatoprost [Lumigan .01% Ophth 1 drop LEFT EYE HS 02/27/21 05/07/21 Soln] Brimonidine Tartrate/Timolol 1 drop LEFT EYE BID 02/27/21 05/07/21 [Combigan 0.2%-0.5% Eye Drops] Loteprednol Etabonate [Inveltys] 1 drop RIGHT EYE DAILY 02/27/21 05/07/21 Pantoprazole Sodium [Protonix] 40 mg PO DAILY 02/27/21 05/07/21 Pravastatin Sodium [Pravachol] 80 mg PO HS 02/27/21 05/07/21 Sacubitril/Valsartan [Entresto 24 1 tab PO BID 05/07/21 05/07/21 mg-26 mg Tablet] Previous Rx's Medication Instructions Recorded Potassium Chloride ER [K-Dur 20] 20 meq PO DAILY 20 Days #20 04/19/21 tab.er.prt Spironolactone [Aldactone] 50 mg PO DAILY 30 Days #60 tab 04/19/21 carvediloL [Coreg*] 12.5 mg PO BID-W/MEALS 30 Days #60 04/19/21 tab Prochlorperazine [Compazine] 5 mg PO Q6HR PRN 2 Days #8 tab 04/20/21 Amiodarone [Cordarone] 200 mg PO BID tab 05/08/21 Cyanocobalamin [Vitamin B-12] 500 mcg PO DAILY tab 05/15/21 Meclizine [Antivert] 25 mg PO TID PRN tab 05/15/21 Magnesium Oxide [Mag-Ox] 400 mg PO BID 30 Days #60 tablet 05/16/21 Allergies Allergy/AdvReac Type Severity Reaction Status Date / Time morphine AdvReac Nausea & Verified 05/24/21 06:32 Vomiting Review of Systems ROS Statement: Those systems with pertinent positive or pertinent negative responses have been documented in the HPI. ROS Other: All systems not noted in ROS Statement are negative. Past Medical History Past Medical History: Atrial Fibrillation, Cancer, Chest Pain / Angina, Heart Failure, Myocardial Infarction ([place]) Additional Past Medical History / Comment(s): heart cath with stents, Cardiomyopathy, Colon cancer. treatment stopped overa month ago, AICD/ pace maker placed in march 19, cva with clot in february, transferred to [facility] for clot retrieval, Last Myocardial Infarction Date:: 11/2020 History of Any Multi-Drug Resistant Organisms: None Reported Past Surgical History: Heart Catheterization, Heart Catheterization With Stent Additional Past Surgical History / Comment(s): CHOLECYSTECTOMY 10/2016, GLAUCOMA, CATARACTS SURG RIGHT EYE 12/13/20 Past Anesthesia/Blood Transfusion Reactions: Postoperative Nausea & Vomiting (PONV) Date of Last Stent Placement:: 12/13/2020 2 STENTS PLACED "FRONT". Past Psychological History: No Psychological Hx Reported Smoking Status: Never smoker Past Alcohol Use History: Occasional Past Drug Use History: None Reported General Exam - General Exam Comments Initial Comments: GENERAL: Patient is well-developed and well-nourished. Patient is nontoxic and in no acute distress. HEAD: Atraumatic, normocephalic. EYES: Pupils equal round and reactive to light, extraocular movements intact, sclera a nicteric, conjunctiva are normal. Eyelids were unremarkable. ENT: Nares patent, oropharynx clear without exudates. Moist mucous membranes. NECK: Normal range of motion, supple without lymphadenopathy or JVD. LUNGS: Unlabored respirations. Breath sounds clear to auscultation bilaterally and e qual. No wheezes rales or rhonchi. HEART: Regular rate and rhythm without murmurs, rubs or gallops. ABDOMEN: Soft, nontender, normoactive bowel sounds. No guarding, no rebound. No masses appreciated. : Deferred MUSCULOSKELETAL: Normal extremities with adequate strength and normal range of motion, no pitting or edema. No clubbing or cyanosis. NEUROLOGICAL: Patient is alert and oriented x 3. Motor and sensory are also intact. Cranial nerves II through XII grossly intact. Symmetrical smile. Normal speech, normal gait. PSYCH: Normal mood, normal affect. SKIN: Warm, Dry, normal turgor, no rashes or lesions noted. Port present right upper chest Limitations: no limitations Course Vital Signs 05/24/21 05/24/21 06:26 06:45 Temperature 98.6 F Pulse Rate 87 60 Respiratory 22 18 Rate Blood Pressure 133/61 114/56 O2 Sat by Pulse 100 100 Oximetry Medical Decision Making - Medical Decision Making Patient is a 75-year-old female, currently undergoing treatment for colon cancer, history of heart failure, anemia, presenting for elevated potassium yesterday which was 6.8. We did recheck it today, 6.4, her creatinine is also bumped from baseline at 2.34. Patient has no specific complaints today, her vitals are stable, EKG is also showing no acute process. Patient will be admitted for hyperkalemia, JERICA. She'll be given hyperkalemia meds, fluids. Dr. Walker is accepting. Case discussed with Dr. Adams. - Lab Data Result diagrams: 05/24/21 06:56 05/24/21 06:56 Lab Results 05/24/21 05/24/21 Range/Units 06:56 06:56 WBC 8.2 (3.8-10.6) k/uL RBC 3.20 L (3.80-5.40) m/uL Hgb 10.2 L (11.4-16.0) gm/dL Hct 31.3 L (34.0-46.0) % MCV 97.6 (80.0-100.0) fL MCH 31.7 (25.0-35.0) pg MCHC 32.5 (31.0-37.0) g/dL RDW 16.8 H (11.5-15.5) % Plt Count 402 (150-450) k/uL MPV 8.2 Neutrophils % 87 % Lymphocytes % 5 % Monocytes % 4 % Eosinophils % 2 % Basophils % 1 % Neutrophils # 7.1 (1.3-7.7) k/uL Lymphocytes # 0.4 L (1.0-4.8) k/uL Monocytes # 0.4 (0-1.0) k/uL Eosinophils # 0.2 (0-0.7) k/uL Basophils # 0.0 (0-0.2) k/uL Hypochromasia Slight Anisocytosis Slight Macrocytosis Slight Sodium 135 L (137-145) mmol/L Potassium 6.4 H* (3.5-5.1) mmol/L Chloride 107 (98-107) mmol/L Carbon Dioxide 20 L (22-30) mmol/L Anion Gap 8 mmol/L BUN 26 H (7-17) mg/dL Creatinine 2.34 H (0.52-1.04) mg/dL Est GFR (CKD-EPI)AfAm 22 (>60 ml/min/1.73 sqM) Est GFR (CKD-EPI)NonAf 20 (>60 ml/min/1.73 sqM) Glucose 108 H (74-99) mg/dL Calcium 10.0 (8.4-10.2) mg/dL Magnesium 2.4 H (1.6-2.3) mg/dL Total Bilirubin 0.6 (0.2-1.3) mg/dL AST 41 H (14-36) U/L ALT 37 H (4-34) U/L Alkaline Phosphatase 68 (38-126) U/L Total Protein 6.4 (6.3-8.2) g/dL Albumin 3.6 (3.5-5.0) g/dL - EKG Data EKG Comments: Sinus bradycardia with first-degree AV block, left axis deviation, RBBB, septal infarct, age undetermined. No signs of acute ST segment elevation. This is similar to her previous on 05/07/2021. Ventricular rate 50, NM interval 216 8, QTC 504. Disposition Clinical Impression: Hyperkalemia, JERICA (acute kidney injury) Disposition: ADMITTED IP TO THIS [facility] Condition: Stable Referrals: Crystal Cifuentes MD [Primary Care Provider] - 1-2 days Decision Date: 05/24/21 Decision Time: 07:59
[2021-05-24] MEDS ORDERED: PROCHLORPERAZINE 5 MG TAB PO PRN (08:56)
[2021-05-24] MEDS ORDERED: MECLIZINE 25 MG TAB PO PRN (08:56)
[2021-05-24] MEDS ORDERED: PANTOPRAZOLE 40 MG TABLET PO SCH (09:00)
[2021-05-24] MEDS ORDERED: ALBUTEROL NEBULIZED 2.5 MG/3 ML INHALATION STA (09:31)
[2021-05-24 09:41] LABS: Appearance,Urine Clear (Clear); Bilirubin,Urine Negative (Negative); Blood,Urine Negative (Negative); Color,Urine Light Yellow; Glucose,Urine (UA) 1+ (Negative); Ketones,Urine Negative (Negative); Leukocyte Esterase,Urine Negative (Negative); Nitrite,Urine Negative (Negative); Protein,Urine Negative (Negative); Specific Gravity,Urine 1.006 (1.001-1.035); Urobilinogen,Urine <2.0 mg/dL (<2.0)
[2021-05-24] MEDS: AMIODARONE 200 MG TAB PO SCH ×2 (10:08→21:43)
[2021-05-24] MEDS: CYANOCOBALAMIN 500 MCG TAB PO SCH (10:08)
[2021-05-24] MEDS: PANTOPRAZOLE 40 MG/10 ML VIAL IV SCH (10:08)
[2021-05-24] MEDS: NON FORMULARY DRUG (Loteprednol Etabonate [Inveltys] 2.8 ML Drops.Susp) RIGHT EYE SCH (10:09)
[2021-05-24] MEDS: NON FORMULARY DRUG (Brimonidine Tartrate/Timolol [Combigan 0.2%-0.5% Eye Drops] 5 ML Drops LEFT EYE SCH ×2 (10:09→21:41)
[2021-05-24] MEDS: SODIUM CHLORIDE 0.9% 1,000 ML IV SCH ×2 (10:16→21:44)
[2021-05-24] MEDS: SACUBITRIL/VALSARTAN 24 MG-26 MG TABLET PO SCH ×2 (10:22→21:56)
[2021-05-24] MEDS: FERROUS SULFATE 325 MG TAB PO SCH (13:09)
[2021-05-24] MEDS: carvediloL 12.5 MG TAB PO SCH (18:25)
[2021-05-24] MEDS: BIMATOPROST LEFT EYE SCH (21:44)
[2021-05-24] MEDS: PRAVASTATIN SODIUM 80 MG TAB PO SCH (21:56)
[2021-05-25 05:40] LABS: Anisocytosis Slight; Basophils % (A) 0 %; Eosinophils # (A) 0.1 k/uL (0-0.7); Eosinophils % (A) 3 %; Hypochromasia Slight; Lymphocytes # (A) 0.3 k/uL (1.0-4.8); Lymphocytes % (A) 6 %; MCH 31.8 pg (25.0-35.0); MCV 99.4 fL (80.0-100.0); Macrocytosis Slight; Mean Platelet Volume 7.8; Monocytes # (A) 0.3 k/uL (0-1.0); Monocytes % (A) 6 %; Neutrophils # (A) 4.5 k/uL (1.3-7.7); Neutrophils % (A) 82 %; Platelet Count 222 k/uL (150-450); RBC 2.52 m/uL (3.80-5.40); RDW 16.3 % (11.5-15.5); WBC 5.4 k/uL (3.8-10.6)
[2021-05-25] MEDS: CYANOCOBALAMIN 500 MCG TAB PO SCH (08:41)
[2021-05-25] MEDS: AMIODARONE 200 MG TAB PO SCH ×2 (08:41→22:37)
[2021-05-25] MEDS: carvediloL 12.5 MG TAB PO SCH ×2 (08:41→22:21)
[2021-05-25] MEDS: PANTOPRAZOLE 40 MG/10 ML VIAL IV SCH (08:41)
[2021-05-25] MEDS: SODIUM CHLORIDE 0.9% 1,000 ML IV SCH ×2 (08:44→17:44)
--- NOTE | 2021-05-25 08:48 | P.HPIM ---
History of Present Illness H&P Date: 05/24/21 Valerie Contreras, is a 75-year-old female who presented to [facility] emergency room with a chief complaint of elevated potassium level patient had a blood test by her visiting nurse as outpatient and her potassium level was 6.8 she was told to go to emergency room. He was evaluated in the emergency room vital examination on presentation revealed A temperature of 98.6 pulse 87 respiration 22 blood pressure 133/61 pulse ox 100% on room air Laboratory data revealed a white blood count of 8.2 hemoglobin 10.2 platelet count 402 sodium 135 potassium 6.4 chloride 107 CO2 20 BUN 26 creatinine 2.34 AST was 41 ALT 37 Testing in the emergency room revealed EKG done in the emergency room revealed sinus bradycardia with first-degree AV block, right bundle branch block, T-wave abnormalities in the lateral leads . Patient was admitted to medical floor for further evaluation and treatment. Past medical history is significant for History of coronary artery disease, history of congestive heart failure with cardiomyopathy with ejection fraction of 25-30 % history of atrial fibrillation, history of colon cancer, previous admissions with hypokalemia, On review of systems Past Medical History Past Medical History: Atrial Fibrillation, Cancer, Chest Pain / Angina, Heart Failure, Myocardial Infarction ([place]) Additional Past Medical History / Comment(s): heart cath with stents, Cardiomyopathy, Colon cancer. treatment stopped overa month ago, AICD/ pace maker placed in march 19, cva with clot in february, transferred to [facility] for clot retrieval, Last Myocardial Infarction Date:: 11/2020 History of Any Multi-Drug Resistant Organisms: None Reported Past Surgical History: Heart Catheterization, Heart Catheterization With Stent Additional Past Surgical History / Comment(s): CHOLECYSTECTOMY 10/2016, GLAUCOMA, CATARACTS SURG RIGHT EYE 12/13/20 Past Anesthesia/Blood Transfusion Reactions: Postoperative Nausea & Vomiting (PONV) Date of Last Stent Placement:: 12/13/2020 2 STENTS PLACED "FRONT". Past Psychological History: No Psychological Hx Reported Smoking Status: Never smoker Past Alcohol Use History: Occasional Past Drug Use History: None Reported Medications and Allergies Home Medications Medication Instructions Recorded Confirmed Type Bimatoprost [Lumigan .01% Ophth 1 drop LEFT EYE HS 02/27/21 05/24/21 History Soln] Brimonidine Tartrate/Timolol 1 drop LEFT EYE BID 02/27/21 05/24/21 History [Combigan 0.2%-0.5% Eye Drops] Loteprednol Etabonate [Inveltys] 1 drop RIGHT EYE DAILY 02/27/21 05/24/21 History Pantoprazole Sodium [Protonix] 40 mg PO DAILY 02/27/21 05/24/21 History Pravastatin Sodium [Pravachol] 80 mg PO HS 02/27/21 05/24/21 History Spironolactone [Aldactone] 50 mg PO DAILY 30 Days #60 tab 04/19/21 05/24/21 Rx carvediloL [Coreg*] 12.5 mg PO BID-W/MEALS 30 Days #60 04/19/21 05/24/21 Rx tab Prochlorperazine [Compazine] 5 mg PO Q6HR PRN 2 Days #8 tab 04/20/21 05/24/21 Rx Sacubitril/Valsartan [Entresto 24 1 tab PO BID 05/07/21 05/24/21 History mg-26 mg Tablet] Amiodarone [Cordarone] 200 mg PO BID tab 05/08/21 05/24/21 Rx Cyanocobalamin [Vitamin B-12] 500 mcg PO DAILY tab 05/15/21 05/24/21 Rx Meclizine [Antivert] 25 mg PO TID PRN tab 05/15/21 05/24/21 Rx Magnesium Oxide [Mag-Ox] 400 mg PO BID 30 Days #60 tablet 05/16/21 05/24/21 Rx Ferrous Sulfate [Feosol] 325 mg PO W/LUNCH 05/24/21 05/24/21 History Allergies Allergy/AdvReac Type Severity Reaction Status Date / Time morphine AdvReac Nausea & Verified 05/24/21 08:04 Vomiting Physical Exam Vitals: Vital Signs Temp Pulse Resp BP Pulse Ox 05/24/21 06:45 60 18 114/56 100 05/24/21 06:26 98.6 F 87 22 133/61 100 Intake and Output 05/23/21 05/24/21 05/24/21 22:59 06:59 14:59 Other: Weight 56.699 kg In general patient is alert and oriented x 3 in no distress HEENT head normocephalic and atraumatic Neck is supple no JVD no goiter no lymphadenopathy no carotid bruit Chest examination is clear to auscultation no crackles no wheezing Cardiac exam reveals regular heart sounds S1 and S2 no gallops no murmurs Abdomen is soft nontender no organomegaly with normal bowel sounds Extremity exam reveals no edema no cyanosis or clubbing Neurological examination reveals no gross focal deficits Results CBC & Chem 7: 05/24/21 06:56 05/24/21 06:56 Labs: Abnormal Lab Results - Last 24 Hours (Table) 05/24/21 05/24/21 Range/Units 06:56 06:56 RBC 3.20 L (3.80-5.40) m/uL Hgb 10.2 L (11.4-16.0) gm/dL Hct 31.3 L (34.0-46.0) % RDW 16.8 H (11.5-15.5) % Lymphocytes # 0.4 L (1.0-4.8) k/uL Sodium 135 L (137-145) mmol/L Potassium 6.4 H* (3.5-5.1) mmol/L Carbon Dioxide 20 L (22-30) mmol/L BUN 26 H (7-17) mg/dL Creatinine 2.34 H (0.52-1.04) mg/dL Glucose 108 H (74-99) mg/dL Magnesium 2.4 H (1.6-2.3) mg/dL AST 41 H (14-36) U/L ALT 37 H (4-34) U/L Assessment and Plan Plan: Hyperkalemia, potassium 6.4 on presentation, magnesium level 2.4 on presentation Dehydration with acute kidney injury creatinine on presentation 2.34 baseline creatinine on 05/12/2021 1.01 Underlying history of atrial fibrillation Underlying history of coronary artery disease Underlying history of congestive heart failure with cardiomyopathy with ejection fraction of 25-30% maintained on Enpresse to Underlying history of colon cancer Underlying history of hypertension Underlying history of hyperlipidemia Recent admission with vertigo Underlying history of anemia At this time patient will be admitted to telemetry floor, at this time will hold all potassium and magnesium supplements, will hold Aldactone Continue home medications otherwise Start gentle hydration with normal saline Consult nephrology Will follow closely
[2021-05-25] MEDS: NON FORMULARY DRUG (Loteprednol Etabonate [Inveltys] 2.8 ML Drops.Susp) RIGHT EYE SCH (09:34)
[2021-05-25] MEDS: NON FORMULARY DRUG (Brimonidine Tartrate/Timolol [Combigan 0.2%-0.5% Eye Drops] 5 ML Drops LEFT EYE SCH ×2 (09:34→22:43)
[2021-05-25] MEDS: SACUBITRIL/VALSARTAN 24 MG-26 MG TABLET PO SCH (09:46)
[2021-05-25 10:23] LABS: Albumin/Globulin Ratio 1.67 (1.60-3.17); Anion Gap 7.1 mmol/L (4.00-12.00); Calcium 8.5 mg/dL (8.7-10.3); Carbon Dioxide 18.9 mmol/L (21.6-31.8); Globulin 1.8 g/dL (1.6-3.3); Potassium 5.4 mmol/L (3.5-5.5); Total Bilirubin 0.3 mg/dL (0.3-1.2); Total Protein 4.8 g/dL (6.2-8.2)
--- NOTE | 2021-05-25 10:42 | P.PN ---
Subjective Progress Note Date: 05/25/21 Valerie Contreras, is a 75-year-old female who presented to [facility] emergency room with a chief complaint of elevated potassium level patient had a blood test by her visiting nurse as outpatient and her potassium level was 6.8 she was told to go to emergency room. He was evaluated in the emergency room vital examination on presentation revealed A temperature of 98.6 pulse 87 respiration 22 blood pressure 133/61 pulse ox 100% on room air Laboratory data revealed a white blood count of 8.2 hemoglobin 10.2 platelet count 402 sodium 135 potassium 6.4 chloride 107 CO2 20 BUN 26 creatinine 2.34 AST was 41 ALT 37 Testing in the emergency room revealed EKG done in the emergency room revealed sinus bradycardia with first-degree AV block, right bundle branch block, T-wave abnormalities in the lateral leads . Patient was admitted to medical floor for further evaluation and treatment. Past medical history is significant for History of coronary artery disease, history of congestive heart failure with cardiomyopathy with ejection fraction of 25-30 % history of atrial fibrillation, history of colon cancer, previous admissions with hypokalemia, On 05/25/2021 patient alert and oriented times. Repeat potassium 5.4. Patient denies any chest pain or shortness breath. Patient denies nausea vomiting or diarrhea. Patient denies any urinary burning or frequency. Nephrology services have been consulted. Repeat labs ordered. Ultrasound of renal kidney and bladder ordered per nephrology Objective - Vital Signs Vital signs: Vital Signs Temp 98.1 F 05/25/21 04:58 Pulse 69 05/25/21 08:37 Resp 16 05/25/21 04:58 BP 149/83 05/25/21 08:37 Pulse Ox 98 05/25/21 08:37 Intake & Output 05/24/21 05/25/21 05/25/21 18:59 06:59 18:59 Intake Total 1200 100 Balance 1200 100 Weight 56.699 kg Intake: Intake, IV Titration 1200 Amount Sodium Chloride 0.9% 1, 1200 000 ml @ 100 mls/hr IV . Q10H [facility] Rx#:[id number] Oral 100 Other: Voiding Method Toilet Bedside Commode # Voids 1 2 1 # Bowel Movements 1 - Exam In general patient is alert and oriented x 3 in no distress HEENT head normocephalic and atraumatic Neck is supple no JVD no goiter no lymphadenopathy no carotid bruit Chest examination is clear to auscultation no crackles no wheezing Cardiac exam reveals regular heart sounds S1 and S2 no gallops no murmurs Abdomen is soft nontender no organomegaly with normal bowel sounds Extremity exam reveals no edema no cyanosis or clubbing Neurological examination reveals no gross focal deficits - Labs CBC & Chem 7: 05/25/21 05:06 05/25/21 05:06 Labs: Abnormal Lab Results - Last 24 Hours (Table) 05/24/21 05/25/21 05/25/21 Range/Units 10:31 05:06 05:06 RBC 2.52 L (3.80-5.40) m/uL Hgb 8.0 L D (11.4-16.0) gm/dL Hct 25.0 L (34.0-46.0) % RDW 16.3 H (11.5-15.5) % Lymphocytes # 0.3 L (1.0-4.8) k/uL Potassium 5.7 H (3.5-5.1) mmol/L Chloride 111 H (96-109) mmol/L Carbon Dioxide 18.9 L (21.6-31.8) mmol/L Creatinine 1.9 H (0.6-1.5) mg/dL Est GFR (CKD-EPI)AfAm 29.0 L (60.0-200.0) Est GFR (CKD-EPI)NonAf 25.0 L (60.0-200.0) BUN/Creatinine Ratio 10.00 L (12.00-20.00) Ratio Calcium 8.5 L (8.7-10.3) mg/dL Total Protein 4.8 L (6.2-8.2) g/dL Albumin 3.00 L (3.80-4.90) g/dL Assessment and Plan Plan: Hyperkalemia, potassium 6.4 on presentation, magnesium level 2.4 on presentation Dehydration with acute kidney injury creatinine on presentation 2.34 baseline creatinine on 05/12/2021 1.01 Underlying history of atrial fibrillation Underlying history of coronary artery disease Underlying history of congestive heart failure with cardiomyopathy with ejection fraction of 25-30% maintained on Enpresse to Underlying history of colon cancer Underlying history of hypertension Underlying history of hyperlipidemia Recent admission with vertigo Underlying history of anemia At this time patient will be admitted to telemetry floor, at this time will hold all potassium and magnesium supplements, will hold Aldactone Continue home medications otherwise Start gentle hydration with normal saline Consult nephrology Sound of renal bladder and kidneys ordered per nephrology Will follow closely
--- NOTE | 2021-05-25 10:49 | P.NPCON ---
History of Present Illness - Reason for Consult acute renal failure, hyperkalemia - History of Present Illness Reason for consultation: Acute kidney injury and hyperkalemia History of present illness: The patient is a 75-year-old female seen in consultation for acute kidney injury and hyperkalemia. Patient states she has history of colon cancer and had blood work done by her oncologist yesterday. She was advised to go to the hospital as a potassium level was high at 6.8. On admission her potassium level was 6.4 and was medically treated and this morning it is down to 5.4. Creatinine was 2.34 on admission and is down to 1.9 today. Patient states she was taking spironolactone as well as Entresto outpatient. Aldactone has been held but she did receive Entresto this morning. Admits to good urine output. No hematuria or dysuria. No vomiting or diarrhea. Oral intake is good. No history of diabetes. Denies family history of renal disease. Denies use of nonsteroidals. She does have history of systolic CHF with ejection fraction of 30-35%. Blood pressure is stable. Vital signs are stable. General: The patient appeared well nourished and normally developed. HEENT: Head exam is unremarkable. Neck is without jugular venous distension. LUNGS: Breath sounds decreased. HEART: Rate and Rhythm are regular. ABDOMEN: Soft, no distention. EXTREMITITES: No edema. Past Medical History Past Medical History: Atrial Fibrillation, Cancer, Chest Pain / Angina, Heart Failure, Myocardial Infarction ([place]) Additional Past Medical History / Comment(s): heart cath with stents, Cardiomyopathy, Colon cancer. treatment stopped overa month ago, AICD/ pace maker placed in march 19, cva with clot in february, transferred to [facility] for clot retrieval, Last Myocardial Infarction Date:: 11/2020 History of Any Multi-Drug Resistant Organisms: None Reported Past Surgical History: Heart Catheterization, Heart Catheterization With Stent Additional Past Surgical History / Comment(s): CHOLECYSTECTOMY 10/2016, GLAUCOMA, CATARACTS SURG RIGHT EYE 12/13/20 Past Anesthesia/Blood Transfusion Reactions: Postoperative Nausea & Vomiting (PONV) Date of Last Stent Placement:: 12/13/2020 2 STENTS PLACED "FRONT". Type of Cardiac Device: Permanent Pacemaker, AICD Device Placement Date:: 02/2021 Past Psychological History: No Psychological Hx Reported Smoking Status: Never smoker Past Alcohol Use History: Occasional Past Drug Use History: None Reported - Past Family History Father Family Medical History: Diabetes Mellitus Mother Family Medical History: COPD Medications and Allergies Home Medications Medication Instructions Recorded Confirmed Type Bimatoprost [Lumigan .01% Ophth 1 drop LEFT EYE HS 02/27/21 05/24/21 History Soln] Brimonidine Tartrate/Timolol 1 drop LEFT EYE BID 02/27/21 05/24/21 History [Combigan 0.2%-0.5% Eye Drops] Loteprednol Etabonate [Inveltys] 1 drop RIGHT EYE DAILY 02/27/21 05/24/21 History Pantoprazole Sodium [Protonix] 40 mg PO DAILY 02/27/21 05/24/21 History Pravastatin Sodium [Pravachol] 80 mg PO HS 02/27/21 05/24/21 History Spironolactone [Aldactone] 50 mg PO DAILY 30 Days #60 tab 04/19/21 05/24/21 Rx carvediloL [Coreg*] 12.5 mg PO BID-W/MEALS 30 Days #60 04/19/21 05/24/21 Rx tab Prochlorperazine [Compazine] 5 mg PO Q6HR PRN 2 Days #8 tab 04/20/21 05/24/21 Rx Sacubitril/Valsartan [Entresto 24 1 tab PO BID 05/07/21 05/24/21 History mg-26 mg Tablet] Amiodarone [Cordarone] 200 mg PO BID tab 05/08/21 05/24/21 Rx Cyanocobalamin [Vitamin B-12] 500 mcg PO DAILY tab 05/15/21 05/24/21 Rx Meclizine [Antivert] 25 mg PO TID PRN tab 05/15/21 05/24/21 Rx Magnesium Oxide [Mag-Ox] 400 mg PO BID 30 Days #60 tablet 05/16/21 05/24/21 Rx Ferrous Sulfate [Feosol] 325 mg PO W/LUNCH 05/24/21 05/24/21 History Allergies Allergy/AdvReac Type Severity Reaction Status Date / Time morphine AdvReac Nausea & Verified 05/24/21 08:04 Vomiting Physical Exam Vitals: Vital Signs Temp Pulse Pulse Resp BP Pulse Ox 05/25/21 08:37 69 149/83 98 05/25/21 04:58 98.1 F 58 L 16 126/57 92 L 05/24/21 21:30 98.5 F 72 20 115/69 95 05/24/21 13:19 97.0 F L 62 18 104/44 97 Intake and Output 05/24/21 05/25/21 05/25/21 22:59 06:59 14:59 Intake Total 1200 100 Balance 1200 100 Intake: Intake, IV Titration 1200 Amount Sodium Chloride 0.9% 1, 1200 000 ml @ 100 mls/hr IV . Q10H [facility] Rx#:[id number] Oral 100 Other: Voiding Method Toilet Bedside Commode # Voids 1 2 1 Results - Lab Results Most recent lab results Calcium 8.5 mg/dL (8.7-10.3) L 05/25/21 05:06 Magnesium 2.4 mg/dL (1.6-2.3) H 05/24/21 06:56 05/25/21 05:06 05/25/21 05:06 Assessment and Plan Plan: Assessment: 1. Acute kidney injury mostly prerenal improving with IV hydration. Creatinine was 2.34 on admission and is down to 1.9 today. Baseline creatinine near 1. UA benign. 2. Hyperkalemia secondary to acute kidney injury, metabolic acidosis and further worsened with the use of spironolactone and entresto. Improved with m edical management. 3. Metabolic acidosis secondary to acute kidney injury and IV fluids. 4. Chronic systolic CHF with ejection fraction of 30-35%. 5. Anemia. Rule out iron deficiency. No active bleeding. 6. Colon cancer. Plan: Decrease rate of normal saline to 70 mL an hour. Add oral bicarb. Hold spironolactone and entresto. Check renal ultrasound. Low potassium diet. Avoid nephrotoxins. Check iron studies. Repeat labs in the morning. Thank you for the consultation. I will continue to follow the patient with you during her hospital stay.
[2021-05-25] MEDS: FERROUS SULFATE 325 MG TAB PO SCH (11:50)
[2021-05-25] MEDS: SODIUM BICARBONATE TAB 650 MG TAB PO SCH ×3 (11:50→22:37)
--- NOTE | 2021-05-25 12:29 | US ---
EXAMINATION TYPE: US kidneys/renal and bladder DATE OF EXAM: 05/25/2021 COMPARISON: CT 05/11/2021 CLINICAL HISTORY: 75-year-old female with acute kidney injury TECHNIQUE: Multiple sonographic images of the kidneys and bladder are obtained. FINDINGS: Power [employer] Assistant notes: Exam done portable. EXAM MEASUREMENTS: Right Kidney: 9.8 x 4.4 x 4.2 cm Left Kidney: 9.5 x 4.8 x 4.4 cm No hydronephrosis on either side. Suspect some underlying parapelvic cysts on the left. Bladder: wnl Bilateral Jets seen: right jet seen, left jet not seen. IMPRESSION: No tiffanie hydronephrosis seen on either side. Suspect some underlying parapelvic cysts on the left.
[2021-05-25 15:29] LABS: % Iron Saturation 18.21 (12.00-45.00); Ferritin 355.6 ng/mL (10.0-291.0)
[2021-05-25] MEDS: PRAVASTATIN SODIUM 80 MG TAB PO SCH (22:37)
[2021-05-25] MEDS: BIMATOPROST LEFT EYE SCH (22:38)
[2021-05-26 06:34] LABS: African American GFR (CKD) 40 (>60 ml/min/1.73 sqM); Anion Gap 6 mmol/L; Blood Urea Nitrogen 14 mg/dL (7-17); Calcium 8.8 mg/dL (8.4-10.2); Carbon Dioxide 18 mmol/L (22-30); Chloride 111 mmol/L (98-107); Glucose 93 mg/dL (74-99); Magnesium 1.6 mg/dL (1.6-2.3); Non-African American GFR(CKD) 35 (>60 ml/min/1.73 sqM); Potassium 4.6 mmol/L (3.5-5.1); Sodium 135 mmol/L (137-145)
[2021-05-26] MEDS: carvediloL 12.5 MG TAB PO SCH (08:01)
[2021-05-26] MEDS ORDERED: SODIUM FERRIC GLUCONAT-SUCROSE 125 MG in SODIUM CHLORIDE 0.9% 100 ML IVPB ONE (08:56)
--- NOTE | 2021-05-26 08:57 | P.PN ---
Subjective Patient is seen in follow-up for acute kidney injury and hyperkalemia. Potassium level now normal. Renal function also improved. No chest pain or shortness of breath. Good urine output. Vital signs are stable. General: The patient appeared well nourished and normally developed. HEENT: Head exam is unremarkable. Neck is without jugular venous distension. LUNGS: Breath sounds decreased. HEART: Rate and Rhythm are regular. ABDOMEN: Soft, no distention. EXTREMITITES: No edema. Objective - Vital Signs Vital signs: Vital Signs Temp 98.5 F 05/26/21 04:36 Pulse 73 05/26/21 08:00 Resp 18 05/26/21 04:36 BP 134/68 05/26/21 08:00 Pulse Ox 94 L 05/26/21 04:36 Intake & Output 05/25/21 05/26/21 05/26/21 18:59 06:59 18:59 Intake Total 700 Balance 700 Intake: Intake, IV Titration 700 Amount Sodium Chloride 0.9% 1, 700 000 ml @ 70 mls/hr IV . [id number] [facility] Rx#:[id number] Other: Voiding Method Toilet Toilet Bedside Commode Bedside Commode # Voids 1 0 # Bowel Movements 0 - Labs CBC & Chem 7: 05/25/21 05:06 05/26/21 05:40 Labs: Abnormal Lab Results - Last 24 Hours (Table) 05/25/21 05/25/21 05/26/21 Range/Units 05:06 05:06 05:40 Sodium 135 L (137-145) mmol/L Chloride 111 H 111 H (96-109) mmol/L Carbon Dioxide 18.9 L 18 L (21.6-31.8) mmol/L Creatinine 1.9 H 1.46 H (0.6-1.5) mg/dL Est GFR (CKD-EPI)AfAm 29.0 L (60.0-200.0) Est GFR (CKD-EPI)NonAf 25.0 L (60.0-200.0) BUN/Creatinine Ratio 10.00 L (12.00-20.00) Ratio Calcium 8.5 L (8.7-10.3) mg/dL Ferritin 355.6 H (10.0-291.0) ng/mL Total Protein 4.8 L (6.2-8.2) g/dL Albumin 3.00 L (3.80-4.90) g/dL Assessment and Plan Plan: Assessment: 1. Acute kidney injury mostly prerenal improving with IV hydration. Creatinine was 2.34 on admission and is down to 1.46 today. Baseline creatinine near 1. UA benign. No hydronephrosis noted on kidney ultrasound. 2. Hyperkalemia secondary to acute kidney injury, metabolic acidosis and further worsened with the use of spironolactone and entresto. Improved with medical management. 3. Metabolic acidosis secondary to acute kidney injury and IV fluids. On oral bicarbonate. 4. Chronic systolic CHF with ejection fraction of 30-35%. 5. Anemia. Rule out iron deficiency. Iron deficiency noted. 6. Colon cancer. Plan: Hep-Lock IV fluids. Hold spironolactone for now. Resume entresto tomorrow. Low potassium diet. Avoid nephrotoxins. IV iron today. Stable for discharge from nephrology standpoint. Repeat BMP 2-3 days postdischarge. Depending on the potassium level, spironolactone and entresto will be adjusted. Patient states she will follow-up with her PCP next week. Also advised to follow-up in our office in one week. Case discussed with patient's over the phone as well.
[2021-05-26] MEDS ORDERED: MAGNESIUM OXIDE 400 MG TAB PO SCH (09:00)
[2021-05-26] MEDS: CYANOCOBALAMIN 500 MCG TAB PO SCH (09:46)
[2021-05-26] MEDS: SODIUM BICARBONATE TAB 650 MG TAB PO SCH ×2 (09:46→16:14)
[2021-05-26] MEDS: PANTOPRAZOLE 40 MG/10 ML VIAL IV SCH (09:46)
[2021-05-26] MEDS: AMIODARONE 200 MG TAB PO SCH (09:46)
[2021-05-26] MEDS: NON FORMULARY DRUG (Loteprednol Etabonate [Inveltys] 2.8 ML Drops.Susp) RIGHT EYE SCH (09:47)
[2021-05-26] MEDS: NON FORMULARY DRUG (Brimonidine Tartrate/Timolol [Combigan 0.2%-0.5% Eye Drops] 5 ML Drops LEFT EYE SCH (09:47)
[2021-05-26] MEDS: FERROUS SULFATE 325 MG TAB PO SCH (13:07)
[2021-05-26 13:08] VITALS: BP 102/67; PULSE 57; RESP 16; TEMP 98.2
[2021-05-26] MEDS: SODIUM CHLORIDE 0.9% 1,000 ML IV SCH (14:52)
--- NOTE | 2021-05-26 15:47 | P.DS ---
Providers Date of admission: 05/24/21 08:06 Expected date of discharge: 05/26/21 Attending physician: Ritu Walker Consults: 05/25/21 08:48 Consult Physician Routine Consulting Provider: Nicolasa Adams Consult Reason/Comments: JERICA, hyperkalemia Do you want consulting provider notified?: Yes Primary care physician: Crystal Cifuentes [facility] Course: Diagnoses on discharge: Hyperkalemia, potassium 6.4 on presentation, magnesium level 2.4 on presentation Dehydration with acute kidney injury creatinine on presentation 2.34 baseline creatinine on 05/12/2021 1.01 Underlying history of atrial fibrillation Underlying history of coronary artery disease Underlying history of congestive heart failure with cardiomyopathy with ejection fraction of 25-30% maintained on Enpresse to Underlying history of colon cancer Underlying history of hypertension Underlying history of hyperlipidemia Recent admission with vertigo Underlying history of anemia Hospital course: Valerie Contreras, is a 75-year-old female who presented to [facility] emergency room with a chief complaint of elevated potassium level patient had a blood test by her visiting nurse as outpatient and her potassium level was 6.8 she was told to go to emergency room. He was evaluated in the emergency room vital examination on presentation revealed A temperature of 98.6 pulse 87 respiration 22 blood pressure 133/61 pulse ox 100% on room air Laboratory data revealed a white blood count of 8.2 hemoglobin 10.2 platelet count 402 sodium 135 potassium 6.4 chloride 107 CO2 20 BUN 26 creatinine 2.34 AST was 41 ALT 37 Testing in the emergency room revealed EKG done in the emergency room revealed sinus bradycardia with first-degree AV block, right bundle branch block, T-wave abnormalities in the lateral leads . Patient was admitted to medical floor for further evaluation and treatment. Past medical history is significant for History of coronary artery disease, history of congestive heart failure with cardiomyopathy with ejection fraction of 25-30 % history of atrial fibrillation, history of colon cancer, previous adm issions with hypokalemia, On 05/25/2021 patient alert and oriented times. Repeat potassium 5.4. Patient denies any chest pain or shortness breath. Patient denies nausea vomiting or diarrhea. Patient denies any urinary burning or frequency. Nephrology services have been consulted. Repeat labs ordered. Ultrasound of renal kidney and bladder ordered per nephrology On 05/26/2021 patient was seen and examined on the medical floor, she is alert and oriented 3 in no apparent distress, she denies any symptoms at this time, potassium is down to normal value of 4.5, creatinine level has improved down to 1.46 patient will be discharged home today, nephrology has added sodium bicarb 650 mg 3 times daily to medication regimen, Aldactone is held at this time, and Enpresse to was held today and will be restarted tomorrow, patient should have a blood test on Friday, including CMP and magnesium, at that point further adjustment to her medication will be done, patient should follow with nephrology in 1 week, he would follow with her primary care physician in 2-3 days Patient Condition at Discharge: Stable Plan - Discharge Summary Discharge Rx Participant: No New Discharge Prescriptions: New Sodium Bicarbonate Tab 650 mg PO TID tab Continue Loteprednol Etabonate [Inveltys] 1 drop RIGHT EYE DAILY Brimonidine Tartrate/Timolol [Combigan 0.2%-0.5% Eye Drops] 1 drop LEFT EYE BID Bimatoprost [Lumigan .01% Ophth Soln] 1 drop LEFT EYE HS Magnesium Oxide [Mag-Ox] 400 mg PO BID 30 Days #60 tablet Sacubitril/Valsartan [Entresto 24 mg-26 mg Tablet] 1 tab PO BID #0 Pravastatin Sodium [Pravachol] 80 mg PO HS Pantoprazole Sodium [Protonix] 40 mg PO DAILY carvediloL [Coreg*] 12.5 mg PO BID-W/MEALS 30 Days #60 tab Prochlorperazine [Compazine] 5 mg PO Q6HR PRN 2 Days #8 tab PRN Reason: Nausea Amiodarone [Cordarone] 200 mg PO BID tab Meclizine [Antivert] 25 mg PO TID PRN tab PRN Reason: Vertigo Cyanocobalamin [Vitamin B-12] 500 mcg PO DAILY tab Ferrous Sulfate [Iron (65 MG Elemental)] 325 mg PO W/LUNCH Discontinued Spironolactone [Aldactone] 50 mg PO DAILY 30 Days #60 tab Discharge Medication List Bimatoprost [Lumigan .01% Ophth Soln] 1 drop LEFT EYE HS 02/27/21 [History] Brimonidine Tartrate/Timolol [Combigan 0.2%-0.5% Eye Drops] 1 drop LEFT EYE BID 02/27/21 [History] Loteprednol Etabonate [Inveltys] 1 drop RIGHT EYE DAILY 02/27/21 [History] Pantoprazole Sodium [Protonix] 40 mg PO DAILY 02/27/21 [History] Pravastatin Sodium [Pravachol] 80 mg PO HS 02/27/21 [History] carvediloL [Coreg*] 12.5 mg PO BID-W/MEALS 30 Days #60 tab 04/19/21 [Rx] Prochlorperazine [Compazine] 5 mg PO Q6HR PRN 2 Days #8 tab 04/20/21 [Rx] Amiodarone [Cordarone] 200 mg PO BID tab 05/08/21 [Rx] Cyanocobalamin [Vitamin B-12] 500 mcg PO DAILY tab 05/15/21 [Rx] Meclizine [Antivert] 25 mg PO TID PRN tab 05/15/21 [Rx] Magnesium Oxide [Mag-Ox] 400 mg PO BID 30 Days #60 tablet 05/16/21 [Rx] Ferrous Sulfate [Iron (65 MG Elemental)] 325 mg PO W/LUNCH 05/24/21 [History] Sacubitril/Valsartan [Entresto 24 mg-26 mg Tablet] 1 tab PO BID #0 05/26/21 [Rx] Sodium Bicarbonate Tab 650 mg PO TID tab 05/26/21 [Rx] Follow up Appointment(s)/Referral(s): Crystal Cifuentes MD [Primary Care Provider] - 1-2 days [facility], [NON-STAFF] - 1 Week Patient Instructions/Handouts: Hyperkalemia (DC)
== END 2021-05-26 16:47 | disposition home or self-care (01) | DRG 683 ==
LOC: EC 06:25 → 5NMEDONC 08:06
PROVIDERS: ADMIT Internal Medicine; ATTEND Internal Medicine
DX: N17.9 Acute kidney failure, unspecified (principal); E87.2 Acidosis; I42.9 Cardiomyopathy, unspecified; I50.22 Chronic systolic (congestive) heart failure; I44.0 Atrioventricular block, first degree; I11.0 Hypertensive heart disease with heart failure; I45.10 Unspecified right bundle-branch block; R00.1 Bradycardia, unspecified; E87.5 Hyperkalemia; I25.10 Atherosclerotic heart disease of native coronary artery without angina pectoris; D50.9 Iron deficiency anemia, unspecified; E78.5 Hyperlipidemia, unspecified; Z20.822 Contact with and (suspected) exposure to COVID-19; I25.2 Old myocardial infarction; Z79.899 Other long term (current) drug therapy; Z85.038 Personal history of other malignant neoplasm of large intestine; Z86.73 Personal history of transient ischemic attack (TIA), and cerebral infarction without residual deficits; Z88.5 Allergy status to narcotic agent; Z90.49 Acquired absence of other specified parts of digestive tract
CPT/HCPCS: 36415; 76770; 80048; 80053; 81003; 82728; 83540; 83550; 83735; 84132; 85025; 93005; 99285

== ENCOUNTER 2021-06-03 07:24 | Inpatient (IN) | payer MEDICARE ==
[2021-06-03] MEDS ORDERED: FUROSEMIDE 10 MG/ML 4 ML VIAL IV STA (07:41)
--- NOTE | 2021-06-03 07:43 | ED ---
General Adult HPI - General Chief complaint: Shortness of Breath Stated complaint: edema Time Seen by Provider: 06/03/21 07:25 Source: patient, RN notes reviewed, old records reviewed Mode of arrival: EMS Limitations: no limitations - History of Present Illness Initial comments: This is a 76-year-old female with past medical history significant for heart attacks with stenting and high blood pressure. Patient comes in today because she states since yesterday she's been a little short of breath but throughout the night she got much more short of breath. Patient states she was on a diuretic but was recently told to stop. Patient states she's currently on no diuretics. Patient denies any fever chills or cough. Patient denies any chest pain or palpitations. Patient states she does feel associated shortness of breath. Patient denies any abdominal pain patient denies nausea vomiting diarrhea. Patient denies headache patient denies numbness weakness per patient denies lightheadedness or dizziness. - Related Data Home Medications Medication Instructions Recorded Confirmed Bimatoprost [Lumigan .01% Ophth 1 drop LEFT EYE HS 02/27/21 06/03/21 Soln] Brimonidine Tartrate/Timolol 1 drop LEFT EYE BID 02/27/21 06/03/21 [Combigan 0.2%-0.5% Eye Drops] Loteprednol Etabonate [Inveltys] 1 drop RIGHT EYE DAILY 02/27/21 06/03/21 Pantoprazole Sodium [Protonix] 40 mg PO DAILY 02/27/21 06/03/21 Pravastatin Sodium [Pravachol] 80 mg PO HS 02/27/21 06/03/21 Ferrous Sulfate [Iron (65 MG 325 mg PO W/LUNCH 05/24/21 06/03/21 Elemental)] Previous Rx's Medication Instructions Recorded carvediloL [Coreg*] 12.5 mg PO BID-W/MEALS 30 Days #60 04/19/21 tab Prochlorperazine [Compazine] 5 mg PO Q6HR PRN 2 Days #8 tab 04/20/21 Amiodarone [Cordarone] 200 mg PO BID tab 05/08/21 Cyanocobalamin [Vitamin B-12] 500 mcg PO DAILY tab 05/15/21 Meclizine [Antivert] 25 mg PO TID PRN tab 08/17/21 Magnesium Oxide [Mag-Ox] 400 mg PO BID 30 Days #60 tablet 05/16/21 Sacubitril/Valsartan [Entresto 24 1 tab PO BID #0 05/26/21 mg-26 mg Tablet] Sodium Bicarbonate Tab 650 mg PO TID tab 05/26/21 Allergies Allergy/AdvReac Type Severity Reaction Status Date / Time morphine AdvReac Nausea & Verified 06/03/21 08:37 Vomiting Review of Systems ROS Statement: Those systems with pertinent positive or pertinent negative responses have been documented in the HPI. ROS Other: All systems not noted in ROS Statement are negative. Past Medical History Past Medical History: Atrial Fibrillation, Cancer, Chest Pain / Angina, Heart Failure, Myocardial Infarction ([place]) Additional Past Medical History / Comment(s): Cardiomyopathy, Colon cancer. cva with clot removal, Last Myocardial Infarction Date:: 11/2020 History of Any Multi-Drug Resistant Organisms: None Reported Past Surgical History: Heart Catheterization, Heart Catheterization With Stent, Pacemaker Additional Past Surgical History / Comment(s): CHOLECYSTECTOMY 10/2016, GLAUCOMA, CATARACTS SURG RIGHT EYE 12/13/20, brain clot removal Past Anesthesia/Blood Transfusion Reactions: Postoperative Nausea & Vomiting (PONV) Date of Last Stent Placement:: 12/13/2020 2 STENTS PLACED "FRONT". Type of Cardiac Device: Permanent Pacemaker, AICD Device Placement Date:: 02/2021 Past Psychological History: No Psychological Hx Reported Smoking Status: Never smoker Past Alcohol Use History: Occasional Past Drug Use History: None Reported - Past Family History Father Family Medical History: Diabetes Mellitus Mother Family Medical History: COPD General Exam - General Exam Comments Initial Comments: GENERAL: Patient is well-developed and well-nourished. Patient is nontoxic and well-hydrated and is in no acute distress. ENT: Neck is soft and supple. No significant lymphadenopathy is noted. Oropharynx is clear. Moist mucous membranes. Neck has full range of motion without eliciting any pain. There is no thyroid enlargement and no masses were felt. EYES: The sclera were anicteric and conjunctiva were pink and moist. Extraocular movements were intact and pupils were equal round and reactive to light. Eyelids were unremarkable. PULMONARY: Unlabored respirations. Patient is crackles bilateral bases CARDIOVASCULAR: There is a regular rate and rhythm without any murmurs gallops or rubs. ABDOMEN: Soft and nontender with normal bowel sounds. No palpable organomegaly was noted. There is no palpable pulsatile mass. SKIN: Skin is clear with no lesions or rashes and otherwise unremarkable. NEUROLOGIC: Patient is alert and oriented x3. Cranial nerves II through XII are grossly intact. Motor and sensory are also intact. Normal speech, volume and content. Symmetrical smile. MUSCULOSKELETAL: Normal extremities with adequate strength and full range of motion. Patient has 1+ edema LYMPHATICS: No significant lymphadenopathy is noted PSYCHIATRIC: Normal psychiatric evaluation. Limitations: no limitations Course Vital Signs 06/03/21 06/03/21 06/03/21 07:26 07:31 07:43 Temperature 98.3 F Pulse Rate 71 Respiratory 20 Rate Blood Pressure 139/56 O2 Sat by Pulse 99 94 L 88 L Oximetry 06/03/21 06/03/21 06/03/21 08:00 08:30 09:00 Temperature Pulse Rate 66 63 66 Respiratory 21 24 22 Rate Blood Pressure 139/56 126/48 116/49 O2 Sat by Pulse 95 98 97 Oximetry Medical Decision Making - Medical Decision Making EKG shows normal sinus rhythm at 60 bpm NV interval is 200 QRS is 146 Q-T intervals 48 QTC is 518 EKG shows right bundle branch block and patient has T- wave inversions in V1 through V4 which are seen on previous EKG. Patient was oxygenating 88% on room air at rest. Patient was given Lasix in the emergency department. And Nitropaste was also given emergency department. Patient's chest x-ray showed pulmonary edema. I spoke with Dr. Walker he agreed to admit the patient admitted the patient consult cardiology. - Lab Data Result diagrams: 06/03/21 07:48 06/03/21 07:48 Lab Results 06/03/21 06/03/21 06/03/21 Range/Units 07:45 07:45 07:48 WBC 10.2 (3.8-10.6) k/uL RBC 3.46 L (3.80-5.40) m/uL Hgb 10.8 L (11.4-16.0) gm/dL Hct 32.6 L (34.0-46.0) % MCV 94.2 D (80.0-100.0) fL MCH 31.3 (25.0-35.0) pg MCHC 33.2 (31.0-37.0) g/dL RDW 17.2 H (11.5-15.5) % Plt Count 363 (150-450) k/uL MPV 7.2 Neutrophils % 88 % Lymphocytes % 4 % Monocytes % 3 % Eosinophils % 3 % Basophils % 1 % Neutrophils # 9.0 H (1.3-7.7) k/uL Lymphocytes # 0.4 L (1.0-4.8) k/uL Monocytes # 0.3 (0-1.0) k/uL Eosinophils # 0.3 (0-0.7) k/uL Basophils # 0.1 (0-0.2) k/uL Poikilocytosis Slight Anisocytosis Slight PT (9.0-12.0) sec INR (<1.2) APTT (22.0-30.0) sec Sodium (137-145) mmol/L Potassium (3.5-5.1) mmol/L Chloride (98-107) mmol/L Carbon Dioxide (22-30) mmol/L Anion Gap mmol/L BUN (7-17) mg/dL Creatinine (0.52-1.04) mg/dL Est GFR (CKD-EPI)AfAm (>60 ml/min/1.73 sqM) Est GFR (CKD-EPI)NonAf (>60 ml/min/1.73 sqM) Glucose (74-99) mg/dL Plasma Lactic Acid Stephan (0.7-2.0) mmol/L Calcium (8.4-10.2) mg/dL Magnesium (1.6-2.3) mg/dL Total Bilirubin (0.2-1.3) mg/dL AST (14-36) U/L ALT (4-34) U/L Alkaline Phosphatase (38-126) U/L Troponin I 0.021 (0.000-0.034) ng/mL NT-Pro-B Natriuret Pep 4510 pg/mL Total Protein (6.3-8.2) g/dL Albumin (3.5-5.0) g/dL Coronavirus (PCR) (Not Detectd) 06/03/21 06/03/21 06/03/21 Range/Units 07:48 07:48 08:26 WBC (3.8-10.6) k/uL RBC (3.80-5.40) m/uL Hgb (11.4-16.0) gm/dL Hct (34.0-46.0) % MCV (80.0-100.0) fL MCH (25.0-35.0) pg MCHC (31.0-37.0) g/dL RDW (11.5-15.5) % Plt Count (150-450) k/uL MPV Neutrophils % % Lymphocytes % % Monocytes % % Eosinophils % % Basophils % % Neutrophils # (1.3-7.7) k/uL Lymphocytes # (1.0-4.8) k/uL Monocytes # (0-1.0) k/uL Eosinophils # (0-0.7) k/uL Basophils # (0-0.2) k/uL Poikilocytosis Anisocytosis PT 12.1 H (9.0-12.0) sec INR 1.2 H (<1.2) APTT 24.8 (22.0-30.0) sec Sodium 135 L (137-145) mmol/L Potassium 5.1 (3.5-5.1) mmol/L Chloride 107 (98-107) mmol/L Carbon Dioxide 20 L (22-30) mmol/L Anion Gap 8 mmol/L BUN 17 (7-17) mg/dL Creatinine 1.15 H (0.52-1.04) mg/dL Est GFR (CKD-EPI)AfAm 53 (>60 ml/min/1.73 sqM) Est GFR (CKD-EPI)NonAf 46 (>60 ml/min/1.73 sqM) Glucose 103 H (74-99) mg/dL Plasma Lactic Acid Stephan (0.7-2.0) mmol/L Calcium 8.9 (8.4-10.2) mg/dL Magnesium 2.2 (1.6-2.3) mg/dL Total Bilirubin 0.8 (0.2-1.3) mg/dL AST 55 H (14-36) U/L ALT 39 H (4-34) U/L Alkaline Phosphatase 74 (38-126) U/L Troponin I (0.000-0.034) ng/mL NT-Pro-B Natriuret Pep pg/mL Total Protein 5.7 L (6.3-8.2) g/dL Albumin 3.0 L (3.5-5.0) g/dL Coronavirus (PCR) Not Detected (Not Detectd) 06/03/21 Range/Units 08:26 WBC (3.8-10.6) k/uL RBC (3.80-5.40) m/uL Hgb (11.4-16.0) gm/dL Hct (34.0-46.0) % MCV (80.0-100.0) fL MCH (25.0-35.0) pg MCHC (31.0-37.0) g/dL RDW (11.5-15.5) % Plt Count (150-450) k/uL MPV Neutrophils % % Lymphocytes % % Monocytes % % Eosinophils % % Basophils % % Neutrophils # (1.3-7.7) k/uL Lymphocytes # (1.0-4.8) k/uL Monocytes # (0-1.0) k/uL Eosinophils # (0-0.7) k/uL Basophils # (0-0.2) k/uL Poikilocytosis Anisocytosis PT (9.0-12.0) sec INR (<1.2) APTT (22.0-30.0) sec Sodium (137-145) mmol/L Potassium (3.5-5.1) mmol/L Chloride (98-107) mmol/L Carbon Dioxide (22-30) mmol/L Anion Gap mmol/L BUN (7-17) mg/dL Creatinine (0.52-1.04) mg/dL Est GFR (CKD-EPI)AfAm (>60 ml/min/1.73 sqM) Est GFR (CKD-EPI)NonAf (>60 ml/min/1.73 sqM) Glucose (74-99) mg/dL Plasma Lactic Acid Stephan 1.1 (0.7-2.0) mmol/L Calcium (8.4-10.2) mg/dL Magnesium (1.6-2.3) mg/dL Total Bilirubin (0.2-1.3) mg/dL AST (14-36) U/L ALT (4-34) U/L Alkaline Phosphatase (38-126) U/L Troponin I (0.000-0.034) ng/mL NT-Pro-B Natriuret Pep pg/mL Total Protein (6.3-8.2) g/dL Albumin (3.5-5.0) g/dL Coronavirus (PCR) (Not Detectd) Critical Care Time Critical Care Time: Yes Total Critical Care Time: 35 Disposition Clinical Impression: Acute pulmonary edema Disposition: ADMITTED IP TO THIS HOSP Referrals: Crystal Cifuentes MD [Primary Care Provider] - 1-2 days Time of Disposition: 09:41
[2021-06-03 08:07] LABS: Calcium 8.9 mg/dL (8.4-10.2); Magnesium 2.2 mg/dL (1.6-2.3); Potassium 5.1 mmol/L (3.5-5.1); Total Bilirubin 0.8 mg/dL (0.2-1.3); Total Protein 5.7 g/dL (6.3-8.2)
[2021-06-03 08:09] LABS: Anisocytosis Slight; Basophils # (A) 0.1 k/uL (0-0.2); Basophils % (A) 1 %; Eosinophils # (A) 0.3 k/uL (0-0.7); Eosinophils % (A) 3 %; HCT 32.6 % (34.0-46.0); HGB 10.8 gm/dL (11.4-16.0); Lymphocytes # (A) 0.4 k/uL (1.0-4.8); Lymphocytes % (A) 4 %; MCH 31.3 pg (25.0-35.0); MCHC 33.2 g/dL (31.0-37.0); MCV 94.2 fL (80.0-100.0); Mean Platelet Volume 7.2; Monocytes # (A) 0.3 k/uL (0-1.0); Monocytes % (A) 3 %; Neutrophils % (A) 88 %; Platelet Count 363 k/uL (150-450); Poikilocytosis Slight; RBC 3.46 m/uL (3.80-5.40); RDW 17.2 % (11.5-15.5); WBC 10.2 k/uL (3.8-10.6)
--- NOTE | 2021-06-03 08:29 | XR ---
EXAMINATION TYPE: XR chest 2V DATE OF EXAM: 06/03/2021 COMPARISON: CT chest May 11, 2021 HISTORY: Difficulty breathing TECHNIQUE: Frontal and lateral views of the chest are obtained. FINDINGS: Left chest wall AICD with lead tips in the right atrium and right ventricle. Right chest w all medical infusion port with the catheter tip in the right atrium. Clips over the left apex. The heart is mildly enlarged, stable. Pulmonary vasculature is indistinct. Increased interstitial ret icular opacity bilaterally. No consolidation or large effusion. IMPRESSION: Cardiomegaly with increased interstitial/reticular opacity likely relating to edema. No sizable effusion.
[2021-06-03 08:44] LABS: INR 1.2 (<1.2); Partial Thromboplastin Time 24.8 sec (22.0-30.0); Prothrombin Time 12.1 sec (9.0-12.0)
[2021-06-03] MEDS: NITROGLYCERIN OINT 1 INCH/GM PACKET TOPICAL SCH ×3 (11:04→21:50)
[2021-06-03] MEDS ORDERED: MECLIZINE 25 MG TAB PO PRN (12:22)
[2021-06-03] MEDS ORDERED: PROCHLORPERAZINE 5 MG TAB PO PRN (12:22)
--- NOTE | 2021-06-03 12:30 | P.HPIM ---
History of Present Illness H&P Date: 06/03/21 Chief Complaint: CHF exacerbation this is a 76-year-old female patient well-known to my services who presented to the ER with concerns of shortness of breath and increased edema. Patient reports that over the past 24 hours symptoms have increased. Patient has had frequent admissions due to hypo-and hyperkalemia. Diuretics were recently stopped. Patient has a past medical history of A. fib, cancer, chest pain, heart failure, myocardial infarction and permanent pacemaker AICD placement. Chest x-ray was completed showing cardiomegaly with increased interstitial retic ular pacing likely related to edemapleural effusion. BNP 4510. Patient started on IV Lasix. Cardiology services consulted. Patient's family at bedside all questions answered. Patient reporting improvement already with 1 dose of IV Lasix. At this time patient denies chest pain. Patient denies nausea vomiting or diarrhea. Patient denies any urinary burning or frequency. Review of Systems please refer to HPI otherwise unremarkable Past Medical History Past Medical History: Atrial Fibrillation, Cancer, Chest Pain / Angina, Heart Failure, Myocardial Infarction ([place]) Additional Past Medical History / Comment(s): Cardiomyopathy, Colon cancer. cva with clot removal, Last Myocardial Infarction Date:: 11/2020 History of Any Multi-Drug Resistant Organisms: None Reported Past Surgical History: Heart Catheterization, Heart Catheterization With Stent, Pacemaker Additional Past Surgical History / Comment(s): CHOLECYSTECTOMY 10/2016, GLAUCOMA, CATARACTS SURG RIGHT EYE 12/13/20, brain clot removal Past Anesthesia/Blood Transfusion Reactions: Postoperative Nausea & Vomiting (PONV) Date of Last Stent Placement:: 12/13/2020 2 STENTS PLACED "FRONT". Type of Cardiac Device: Permanent Pacemaker, AICD Device Placement Date:: 02/2021 Past Psychological History: No Psychological Hx Reported Smoking Status: Never smoker Past Alcohol Use History: Occasional Past Drug Use History: None Reported - Past Family History Father Family Medical History: Diabetes Mellitus Mother Family Medical History: COPD Medications and Allergies Home Medications Medication Instructions Recorded Confirmed Type Bimatoprost [Lumigan .01% Ophth 1 drop LEFT EYE HS 02/27/21 06/03/21 History Soln] Brimonidine Tartrate/Timolol 1 drop LEFT EYE BID 02/27/21 06/03/21 History [Combigan 0.2%-0.5% Eye Drops] Loteprednol Etabonate [Inveltys] 1 drop RIGHT EYE DAILY 02/27/21 06/03/21 Hi story Pantoprazole Sodium [Protonix] 40 mg PO DAILY 02/27/21 06/03/21 History Pravastatin Sodium [Pravachol] 80 mg PO HS 02/27/21 06/03/21 History carvediloL [Coreg*] 12.5 mg PO BID-W/MEALS 30 Days #60 04/19/21 06/03/21 Rx tab Prochlorperazine [Compazine] 5 mg PO Q6HR PRN 2 Days #8 tab 04/20/21 06/03/21 Rx Amiodarone [Cordarone] 200 mg PO BID tab 05/08/21 06/03/21 Rx Cyanocobalamin [Vitamin B-12] 500 mcg PO DAILY tab 05/15/21 06/03/21 Rx Meclizine [Antivert] 25 mg PO TID PRN tab 05/15/21 06/03/21 Rx Magnesium Oxide [Mag-Ox] 400 mg PO BID 30 Days #60 tablet 05/16/21 06/03/21 Rx Ferrous Sulfate [Iron (65 MG 325 mg PO W/LUNCH 05/24/21 06/03/21 History Elemental)] Sacubitril/Valsartan [Entresto 24 1 tab PO BID #0 05/26/21 06/03/21 Rx mg-26 mg Tablet] Sodium Bicarbonate Tab 650 mg PO TID tab 05/26/21 06/03/21 Rx Allergies Allergy/AdvReac Type Severity Reaction Status Date / Time morphine AdvReac Nausea & Verified 06/03/21 08:37 Vomiting Physical Exam Vitals: Vital Signs Temp Pulse Resp BP Pulse Ox 06/03/21 11:30 61 25 H 101/48 97 06/03/21 11:00 60 22 102/51 97 06/03/21 10:30 61 22 96/45 97 06/03/21 10:17 96 06/03/21 10:16 86 L 06/03/21 10:00 60 22 107/47 96 06/03/21 09:30 63 21 118/52 98 06/03/21 09:00 66 22 116/49 97 06/03/21 08:30 63 24 126/48 98 06/03/21 08:00 66 21 139/56 95 09/05/21 07:43 88 L 06/03/21 07:31 94 L 06/03/21 07:26 98.3 F 71 20 139/56 99 Intake and Output 06/02/21 06/03/21 06/03/21 22:59 06:59 14:59 Other: Weight 60.328 kg Head normocephalic Neck supple Lungs diminished lung sounds bilaterally Heart irregular rate known atrial fibrillation Abdomen is soft nontender nondistended positive bowel sounds no hepatosplenomegaly Extremities no edema. +2 pitting edema Neuro alert and orientated to 3 Results CBC & Chem 7: 06/03/21 07:48 06/03/21 07:48 Labs: Abnormal Lab Results - Last 24 Hours (Table) 06/03/21 06/03/21 06/03/21 Range/Units 07:48 07:48 08:26 RBC 3.46 L (3.80-5.40) m/uL Hgb 10.8 L (11.4-16.0) gm/dL Hct 32.6 L (34.0-46.0) % RDW 17.2 H (11.5-15.5) % Neutrophils # 9.0 H (1.3-7.7) k/uL Lymphocytes # 0.4 L (1.0-4.8) k/uL PT 12.1 H (9.0-12.0) sec INR 1.2 H (<1.2) Sodium 135 L (137-145) mmol/L Carbon Dioxide 20 L (22-30) mmol/L Creatinine 1.15 H (0.52-1.04) mg/dL Glucose 103 H (74-99) mg/dL AST 55 H (14-36) U/L ALT 39 H (4-34) U/L Total Protein 5.7 L (6.3-8.2) g/dL Albumin 3.0 L (3.5-5.0) g/dL Assessment and Plan Assessment: 1. Shortness of breath secondary to acute on chronic systolic congestive heart failure 2. Underlining history of systolic congestive heart failure with cardiomyopathy with an EF of 25-30% 3. History of atrial fibrillation 4. AICD and pacemaker placement 5. Underlying history of coronary artery disease 6. Underlining history of colon cancer 7. Underlying history of hyperlipidemia 8. Underlying history of anemia. Patient follows with oncology service is Cardiology service is consulted Patient maintained on IV Lasix Time with Patient: Greater than 30 (Greater than 60% of the total time spent in counseling and coordination of care)
[2021-06-03] MEDS: FERROUS SULFATE 325 MG TAB PO SCH (12:45)
[2021-06-03] MEDS: carvediloL 12.5 MG TAB PO SCH (18:33)
[2021-06-03] MEDS: SODIUM BICARBONATE TAB 650 MG TAB PO SCH ×2 (18:34→21:49)
[2021-06-03] MEDS ORDERED: BRIMONIDINE TARTRATE 0.2% DROPS 5 ML BTL LEFT EYE SCH (21:00)
[2021-06-03] MEDS ORDERED: TIMOLOL 0.5% OPHTH DROPS 5 ML BTL LEFT EYE SCH (21:00)
[2021-06-03] MEDS ORDERED: LATANOPROST 0.005% OPHTH DROPS 2.5 ML BTL LEFT EYE SCH (21:00)
[2021-06-03] MEDS ORDERED: NON FORMULARY DRUG (Brimonidine Tartrate/Timolol [Combigan 0.2%-0.5% Eye Drops] 5 ML Drops LEFT EYE SCH (21:00)
[2021-06-03] MEDS: MAGNESIUM OXIDE 400 MG TAB PO SCH (21:49)
[2021-06-03] MEDS: FUROSEMIDE 10 MG/ML 4 ML VIAL IV SCH (21:49)
[2021-06-03] MEDS: AMIODARONE 200 MG TAB PO SCH (21:49)
[2021-06-03] MEDS: PRAVASTATIN SODIUM 80 MG TAB PO SCH (21:50)
[2021-06-03] MEDS: SACUBITRIL/VALSARTAN 24 MG-26 MG TABLET PO SCH (21:50)
[2021-06-03] MEDS: COMBIGAN LEFT EYE SCH (23:32)
[2021-06-03] MEDS: LUMIGAN 0.01% LEFT EYE SCH (23:32)
[2021-06-04] MEDS: carvediloL 12.5 MG TAB PO SCH (06:36)
[2021-06-04 07:39] LABS: Anisocytosis Slight; Basophils % (A) 0 %; Eosinophils # (A) 0.3 k/uL (0-0.7); Eosinophils % (A) 4 %; HCT 28.1 % (34.0-46.0); Hypochromasia Slight; Lymphocytes # (A) 0.4 k/uL (1.0-4.8); Lymphocytes % (A) 7 %; MCH 31.2 pg (25.0-35.0); MCHC 32.6 g/dL (31.0-37.0); MCV 95.7 fL (80.0-100.0); Mean Platelet Volume 7.4; Monocytes # (A) 0.2 k/uL (0-1.0); Monocytes % (A) 4 %; Neutrophils # (A) 5.7 k/uL (1.3-7.7); Neutrophils % (A) 85 %; Platelet Count 316 k/uL (150-450); Poikilocytosis Slight; RBC 2.94 m/uL (3.80-5.40); RDW 17.2 % (11.5-15.5); WBC 6.7 k/uL (3.8-10.6)
[2021-06-04 07:50] LABS: Albumin 2.5 g/dL (3.5-5.0); Calcium 8.2 mg/dL (8.4-10.2); Total Bilirubin 0.5 mg/dL (0.2-1.3); Total Protein 4.9 g/dL (6.3-8.2)
[2021-06-04 07:58] LABS: HGB 9.2 gm/dL (11.4-16.0)
[2021-06-04] MEDS: LOTEPREDNOL ETABONATE RIGHT EYE SCH (08:47)
[2021-06-04] MEDS: NITROGLYCERIN OINT 1 INCH/GM PACKET TOPICAL SCH (08:47)
[2021-06-04] MEDS: COMBIGAN LEFT EYE SCH ×2 (08:48→21:21)
[2021-06-04] MEDS: SODIUM BICARBONATE TAB 650 MG TAB PO SCH ×3 (08:54→21:20)
[2021-06-04] MEDS: MAGNESIUM OXIDE 400 MG TAB PO SCH ×2 (08:54→21:20)
[2021-06-04] MEDS: CYANOCOBALAMIN 500 MCG TAB PO SCH (08:54)
[2021-06-04] MEDS: PANTOPRAZOLE 40 MG TABLET PO SCH (08:54)
[2021-06-04] MEDS: FUROSEMIDE 10 MG/ML 4 ML VIAL IV SCH (09:00)
[2021-06-04] MEDS: AMIODARONE 200 MG TAB PO SCH ×2 (09:01→21:20)
--- NOTE | 2021-06-04 09:53 | P.CRDCN ---
History of Present Illness Consult date: 06/04/21 Chief complaint: Shortness of breath History of present illness: This is a pleasant 76-year-old female patient who follows with Dr. Tex chacon with a past medical history significant for coronary artery disease and prior stenting of the RCA and LAD in the past, severe ischemic cardiomyopathy and status post AICD, paroxysmal atrial fibrillation, was admitted to the hospital with increasing shortness of breath concerning for heart failure exacerbation. The patient stated that for the last 24 hours she has been experiencing increasing in her exertional dyspnea but no orthopnea. Beside that she noticed lower extremities edema. She did not gain any weight according to her. She denies any dizziness or lightheadedness or any presyncope or syncope. She denies any fever or chills. No cough or sputum production. The chest x-ray showed findings consistent with heart failure. The NT proBNP is around 5000. The hemoglobin is 9.2 this morning. The most recent echo from earlier this ear revealed an ejection fraction between 30-35%. She was diagnosed with heart failure and she was started on Lasix IV. She was seen this morning. She stated that she is feeling better indeterminable shortness of breath. Lower extremities edema has improved as well. Her pressure has been marginal and her systolic blood pressure is in the 90s. I decrease the dose of carvedilol from 12.5 mg by mouth twice a day to 6.25 milligrams twice a day. Also I decrease the dose of Lasix from 40 mg twice a day into 20 mg twice a day. If she contin ues to be hypotensive she might benefit from switching carvedilol to Toprol-XL. Past Medical History Past Medical History: Atrial Fibrillation, Cancer, Chest Pain / Angina, Heart Failure, Myocardial Infarction ([place]) Additional Past Medical History / Comment(s): Cardiomyopathy, Colon cancer. cva with clot removal, Last Myocardial Infarction Date:: 11/2020 History of Any Multi-Drug Resistant Organisms: None Reported Past Surgical History: AICD, Heart Catheterization, Heart Catheterization With Stent, Pacemaker Additional Past Surgical History / Comment(s): CHOLECYSTECTOMY 10/2016, GLAUCOMA, CATARACTS SURG RIGHT EYE 12/13/20, brain clot removal Past Anesthesia/Blood Transfusion Reactions: Postoperative Nausea & Vomiting (PONV) Date of Last Stent Placement:: 12/13/2020 2 STENTS PLACED "FRONT". Type of Cardiac Device: Permanent Pacemaker, AICD Device Placement Date:: 02/2021 Past Psychological History: No Psychological Hx Reported Smoking Status: Never smoker Past Alcohol Use History: Occasional Past Drug Use History: None Reported - Past Family History Father Family Medical History: Diabetes Mellitus Mother Family Medical History: COPD Medications and Allergies Home Medications Medication Instructions Recorded Confirmed Type Bimatoprost [Lumigan .01% Ophth 1 drop LEFT EYE HS 02/27/21 06/03/21 History Soln] Brimonidine Tartrate/Timolol 1 drop LEFT EYE BID 02/27/21 06/03/21 History [Combigan 0.2%-0.5% Eye Drops] Loteprednol Etabonate [Inveltys] 1 drop RIGHT EYE DAILY 02/27/21 06/03/21 History Pantoprazole Sodium [Protonix] 40 mg PO DAILY 02/27/21 06/03/21 History Pravastatin Sodium [Pravachol] 80 mg PO HS 02/27/21 06/03/21 History carvediloL [Coreg*] 12.5 mg PO BID-W/MEALS 30 Days #60 04/19/21 06/03/21 Rx tab Prochlorperazine [Compazine] 5 mg PO Q6HR PRN 2 Days #8 tab 04/20/21 06/03/21 Rx Amiodarone [Cordarone] 200 mg PO BID tab 05/08/21 06/03/21 Rx Cyanocobalamin [Vitamin B-12] 500 mcg PO DAILY tab 05/15/21 06/03/21 Rx Meclizine [Antivert] 25 mg PO TID PRN tab 05/15/21 06/03/21 Rx Magnesium Oxide [Mag-Ox] 400 mg PO BID 30 Days #60 tablet 05/16/21 06/03/21 Rx Ferrous Sulfate [Iron (65 MG 325 mg PO W/LUNCH 05/24/21 06/03/21 History Elemental)] Sacubitril/Valsartan [Entresto 24 1 tab PO BID #0 05/26/21 06/03/21 Rx mg-26 mg Tablet] Sodium Bicarbonate Tab 650 mg PO TID tab 05/26/21 06/03/21 Rx Allergies Allergy/AdvReac Type Severity Reaction Status Date / Time morphine AdvReac Nausea & Verified 06/03/21 08:37 Vomiting Physical Exam Vitals: Vital Signs Temp Pulse Pulse Resp BP BP BP 06/04/21 09:22 98.0 F 58 L 18 94/58 87/52 06/04/21 04:00 98.3 F 60 18 113/55 06/04/21 00:00 98.1 F 58 L 18 112/56 06/03/21 20:00 98.3 F 63 18 119/61 06/03/21 18:00 16 06/03/21 16:00 98.0 F 67 16 98/61 06/03/21 15:30 98.1 F 60 16 107/52 06/03/21 14:30 57 L 22 94/52 06/03/21 13:00 61 22 101/52 06/03/21 11:30 61 25 H 101/48 06/03/21 11:00 60 22 102/51 06/03/21 10:30 61 22 96/45 06/03/21 10:17 06/03/21 10:16 06/03/21 10:00 60 22 107/47 Pulse Ox 06/04/21 09:22 94 L 06/04/21 04:00 94 L 06/04/21 00:00 06/03/21 20:00 94 L 06/03/21 18:00 06/03/21 16:00 93 L 06/03/21 15:30 98 06/03/21 14:30 94 L 06/03/21 13:00 97 06/03/21 11:30 97 06/03/21 11:00 97 06/03/21 10:30 97 06/03/21 10:17 96 06/03/21 10:16 86 L 06/03/21 10:00 96 Intake and Output 06/03/21 06/04/21 06/04/21 22:59 06:59 14:59 Intake Total 120 0 Output Total 650 Balance 120 -650 0 Intake: Oral 120 0 Output: Urine 650 Other: Voiding Method External Catheter External Catheter External Catheter # Voids 1 # Bowel Movements 1 Weight 60.328 kg 61 kg - Constitutional General appearance: no acute distress - Respiratory Respiratory: bilateral: rales - Cardiovascular Rhythm: regular Heart sounds: normal: S1, S2 Abnormal Heart Sounds: systolic murmur Results 06/04/21 07:01 06/04/21 07:01 Cardiac Enzymes 06/04/21 Range/Units 07:01 AST 47 H (14-36) U/L CBC 06/04/21 Range/Units 07:01 WBC 6.7 (3.8-10.6) k/uL RBC 2.94 L (3.80-5.40) m/uL Hgb 9.2 L D (11.4-16.0) gm/dL Hct 28.1 L (34.0-46.0) % Plt Count 316 (150-450) k/uL Comprehensive Metabolic Panel 06/04/21 Range/Units 07:01 Sodium 133 L (137-145) mmol/L Potassium 4.0 (3.5-5.1) mmol/L Chloride 101 (98-107) mmol/L Carbon Dioxide 27 (22-30) mmol/L BUN 20 H (7-17) mg/dL Creatinine 1.35 H (0.52-1.04) mg/dL Glucose 100 H (74-99) mg/dL Calcium 8.2 L (8.4-10.2) mg/dL AST 47 H (14-36) U/L ALT 38 H (4-34) U/L Alkaline Phosphatase 75 (38-126) U/L Total Protein 4.9 L (6.3-8.2) g/dL Albumin 2.5 L (3.5-5.0) g/dL Current Medications Generic Name Dose Route Start Last Admin Trade Name Freq PRN Reason Stop Dose Admin Amiodarone HCl 200 mg 06/03/21 21:00 06/04/21 09:01 Amiodarone 200 Mg Tab PO 200 mg BID SPRING Administration Carvedilol 6.25 mg 06/04/21 17:30 Carvedilol 6.25 Mg Tab PO BID-W/MEALS SPRING Cyanocobalamin 500 mcg 06/04/21 09:00 06/04/21 08:54 Cyanocobalamin 500 Mcg Tab PO 500 mcg DAILY SPRING Administration Ferrous Sulfate 325 mg 06/03/21 12:30 06/03/21 12:45 Ferrous Sulfate 325 Mg Tab PO 325 mg W/LUNCH SPRING Administration Furosemide 20 mg 06/04/21 21:00 Furosemide 10 Mg/Ml 2 Ml Vial IV Q12HR SPRING Magnesium Oxide 400 mg 06/03/21 21:00 06/04/21 08:54 Magnesium Oxide 400 Mg Tab PO 400 mg BID SPRING Administration Meclizine HCl 25 mg 06/03/21 12:22 Meclizine 25 Mg Tab PO TID PRN Vertigo Nitroglycerin 0.5 inch 06/03/21 13:00 06/04/21 08:47 Nitroglycerin Oint 1 Inch/Gm Packet TOPICAL Not Given QID SPRING Loteprednol 1 drop 06/04/21 09:00 06/04/21 08:47 Etabonate [Inveltys] RIGHT EYE Not Given 2.8 Ml Drops.Susp DAILY SPRING Lumigan (Bimatoprost 1 each 06/03/21 21:00 06/03/21 23:32 ) 0.01% LEFT EYE 1 each HS SPRING Administration Combigan ( 1 each 06/03/21 21:00 06/04/21 08:48 Brimonidine/Timolol) LEFT EYE Not Given 0.2%/0.5% BID SPRING Pantoprazole Sodium 40 mg 06/04/21 09:00 06/04/21 08:54 Pantoprazole 40 Mg Tablet PO 40 mg DAILY SPRING Administration Pravastatin Sodium 80 mg 06/03/21 21:00 06/03/21 21:50 Pravastatin Sodium 80 Mg Tab PO 80 mg HS SPRING Administration Prochlorperazine Maleate 5 mg 06/03/21 12:22 Prochlorperazine 5 Mg Tab PO Q6HR PRN Nausea Sacubitril/Valsartan 1 each 06/03/21 21:00 06/03/21 21:50 Sacubitril/Valsartan 24 Mg-26 Mg Tablet PO 1 each BID SPRING Administration Sodium Bicarbonate 650 mg 06/03/21 16:00 06/04/21 08:54 Sodium Bicarbonate Tab 650 Mg Tab PO 650 mg TID SPRING Administration Intake and Output 06/03/21 06/04/21 06/04/21 22:59 06:59 14:59 Intake Total 120 0 Output Total 650 Balance 120 -650 0 Intake: Oral 120 0 Output: Urine 650 Other: Voiding Method External Catheter External Catheter External Catheter # Voids 1 # Bowel Movements 1 Weight 60.328 kg 61 kg 06/04/21 07:01 06/04/21 07:01 Assessment and Plan Assessment: Assessment #1 heart failure exacerbation related to heart failure with reduced ejection fraction #2 shortness of breath and lower extremities edema related to the above #3 hypotension #4 paroxysmal atrial fibrillation #5 coronary artery disease #6 ischemic cardiomyopathy Plan #1 decrease the dose of carvedilol. Consider switching the patient to Toprol-XL if she remains hypotensive #2 decrease the dose of Lasix as well #3 continue monitoring the kidney function and electrolytes as well as hemoglobin #4 follow-up with the patient
[2021-06-04] MEDS: SACUBITRIL/VALSARTAN 24 MG-26 MG TABLET PO SCH ×2 (10:07→21:20)
--- NOTE | 2021-06-04 12:03 | P.NPCON ---
History of Present Illness - Reason for Consult Consult date: 06/04/21 acute renal failure - Chief Complaint Acute kidney injury and congestive heart failure - History of Present Illness This is a 76-year-old female seen in consultation because of acute kidney injury, congestive heart failure She came in because of worsening edema and shortness of breath. Recently she had hyperkalemia. Her spironolactone was discontinued about 2 weeks ago. Not on any diuretics at the time of admission. Since admission she has been diuresis she is feeling much better is still on oxygen with a nasal cannula but feels much better. She complains of generalized weakness and is worried about her upcoming flight to [place]. She denies any dizziness. She uses a walker to walk. This is something new Past history significant for atrial fibrillation, coronary artery disease, heart catheterization with stenting pacemaker. Additionally she has had C of the colon with colectomy in 2016. Does not have any ostomy. More recent computed tomography scan on 05/29/2021 showed lymphadenopathy. Past Medical History Past Medical History: Atrial Fibrillation, Cancer, Chest Pain / Angina, Heart Failure, Myocardial Infarction ([place]) Additional Past Medical History / Comment(s): Cardiomyopathy, Colon cancer. cva with clot removal, Last Myocardial Infarction Date:: 11/2020 History of Any Multi-Drug Resistant Organisms: None Reported Past Surgical History: AICD, Heart Catheterization, Heart Catheterization With Stent, Pacemaker Additional Past Surgical History / Comment(s): CHOLECYSTECTOMY 10/2016, GLAUCOMA, CATARACTS SURG RIGHT EYE 12/13/20, brain clot removal Past Anesthesia/Blood Transfusion Reactions: Postoperative Nausea & Vomiting (PONV) Date of Last Stent Placement:: 12/13/2020 2 STENTS PLACED "FRONT". Type of Cardiac Device: Permanent Pacemaker, AICD Device Placement Date:: 02/2021 Past Psychological History: No Psychological Hx Reported Smoking Status: Never smoker Past Alcohol Use History: Occasional Past Drug Use History: None Reported - Past Family History Father Family Medical History: Diabetes Mellitus Mother Family Medical History: COPD Medications and Allergies Home Medications Medication Instructions Recorded Confirmed Type Bimatoprost [Lumigan .01% Ophth 1 drop LEFT EYE HS 02/27/21 06/03/21 History Soln] Brimonidine Tartrate/Timolol 1 drop LEFT EYE BID 02/27/21 06/03/21 History [Combigan 0.2%-0.5% Eye Drops] Loteprednol Etabonate [Inveltys] 1 drop RIGHT EYE DAILY 02/27/21 06/03/21 History Pantoprazole Sodium [Protonix] 40 mg PO DAILY 02/27/21 06/03/21 History Pravastatin Sodium [Pravachol] 80 mg PO HS 02/27/21 06/03/21 History carvediloL [Coreg*] 12.5 mg PO BID-W/MEALS 30 Days #60 04/19/21 06/03/21 Rx tab Prochlorperazine [Compazine] 5 mg PO Q6HR PRN 2 Days #8 tab 04/20/21 06/03/21 Rx Amiodarone [Cordarone] 200 mg PO BID tab 05/08/21 06/03/21 Rx Cyanocobalamin [Vitamin B-12] 500 mcg PO DAILY tab 05/15/21 06/03/21 Rx Meclizine [Antivert] 25 mg PO TID PRN tab 05/15/21 06/03/21 Rx Magnesium Oxide [Mag-Ox] 400 mg PO BID 30 Days #60 tablet 05/16/21 06/03/21 Rx Ferrous Sulfate [Iron (65 MG 325 mg PO W/LUNCH 05/24/21 06/03/21 History Elemental)] Sacubitril/Valsartan [Entresto 24 1 tab PO BID #0 05/26/21 06/03/21 Rx mg-26 mg Tablet] Sodium Bicarbonate Tab 650 mg PO TID tab 05/26/21 06/03/21 Rx Allergies Allergy/AdvReac Type Severity Reaction Status Date / Time morphine AdvReac Nausea & Verified 06/03/21 08:37 Vomiting Physical Exam Vitals: Vital Signs Temp Pulse Pulse Resp BP BP BP 06/04/21 09:22 98.0 F 58 L 18 94/58 87/52 06/04/21 04:00 98.3 F 60 18 113/55 06/04/21 00:00 98.1 F 58 L 18 112/56 06/03/21 20:00 98.3 F 63 18 119/61 06/03/21 18:00 16 06/03/21 16:00 98.0 F 67 16 98/61 06/03/21 15:30 98.1 F 60 16 107/52 06/03/21 14:30 57 L 22 94/52 06/03/21 13:00 61 22 101/52 Pulse Ox 06/04/21 09:22 94 L 06/04/21 04:00 94 L 06/04/21 00:00 06/03/21 20:00 94 L 06/03/21 18:00 06/03/21 16:00 93 L 06/03/21 15:30 98 06/03/21 14:30 94 L 06/03/21 13:00 97 Intake and Output 06/03/21 06/04/21 06/04/21 22:59 06:59 14:59 Intake Total 120 0 Output Total 650 350 Balance 120 -650 -350 Intake: Oral 120 0 Output: Urine 650 350 Other: Voiding Method External Catheter External Catheter External Catheter # Voids 1 3 # Bowel Movements 1 Weight 60.328 kg 61 kg On examination she is awake alert oriented comfortable She is on nasal cannula oxygen HEENT exam no JVP neck is supple no facial asymmetry Lungs are significant for an occasional coarse crackle at bases cleared by c ough. Good air entry bilaterally. Heart sounds unremarkable for any murmur rub gallop. She seems to be normal sinus rhythm. She does have history of atrial fibrillation. EKG does show normal sinus rhythm Abdomen soft nontender Extremity exam was trace edema Neurologically awake alert oriented Results - Lab Results Most recent lab results Calcium 8.2 mg/dL (8.4-10.2) L 06/04/21 07:01 Magnesium 2.2 mg/dL (1.6-2.3) 06/03/21 07:48 06/04/21 07:01 06/04/21 07:01 Assessment and Plan Assessment: Impression 1. Acute kidney injury, from congestive heart failure and cardiorenal syndrome. Creatinine was 2.34 on 05/18/1963, 1.46 on 05/26/2021 as an outpatient, came in with creatinine of 1.15 and slightly up to 1.35 this morning. This likely reflects her cardiorenal syndrome. Blood pressure is at times somewhat low in the 80 systolic. 2. Mild degree of non-gap acidosis with bicarb of 20 and gap of 8 from acute kidney injury. Bicarb is improved to 27 this morning 3. Chronic kidney disease, stage III secondary to nephrosclerosis, creatinine is 1 baseline and GFR is 35 mL per minute dated 05/26/2021 ultrasound showing 9.8 cm and 9.5 cm right and left kidney dated 05/25/2021. 4. History of CA: With MRSA colectomy 2017 and lymph node seen on computed tomography scan of abdomen recently 05/29/2021. Possible recurrence 5. Anemia of chronic illness hemoglobin is 9.2 down from 10.8 yesterday. Recommendation 1. Continue diuresis currently on 20 mg of IV Lasix twice a day. 2. Patient is on Eneteresto to combination of Sacubutril + valsartan will continue the same 3. Continue sodium bicarb 650 3 times a day. 4. As long the creatinine does not go up anymore, we will not change any medications. Thank you for this consultation will continue to follow
[2021-06-04] MEDS: FERROUS SULFATE 325 MG TAB PO SCH (12:21)
--- NOTE | 2021-06-04 12:57 | P.PN ---
Subjective Progress Note Date: 06/04/21 this is a 76-year-old female patient well-known to my services who presented to the ER with concerns of shortness of breath and increased edema. Patient reports that over the past 24 hours symptoms have increased. Patient has had frequent admissions due to hypo-and hyperkalemia. Diuretics were recently stopped. Patient has a past medical history of A. fib, cancer, chest pain, heart failure, myocardial infarction and permanent pacemaker AICD placement. Chest x-ray was completed showing cardiomegaly with increased interstitial reticular pacing likely related to edemapleural effusion. BNP 4510. Patient started on IV Lasix. Cardiology services consulted. Patient's family at bedside all questions answered. Patient reporting improvement already with 1 dose of IV Lasix. At this time patient denies chest pain. Patient denies nausea vomiting or diarrhea. Patient denies any urinary burning or frequency. On 06/04/2021 patient was seen and examined on the telemetry floor, she is alert and oriented 3 in no apparent distress, her shortness of breath has improved, and lower extremity swelling has improved, BUN and creatinine have increased since yesterday, cardiology and nephrology are following and adjusting patient medications, including the blood pressure medications and diuretics. At this time will continue to monitor will follow in a.m. Objective - Vital Signs Vital signs: Vital Signs Temp 98.3 F 06/04/21 04:00 Pulse 60 06/04/21 04:00 Resp 18 06/04/21 04:00 BP 113/55 06/04/21 04:00 Pulse Ox 94 L 06/04/21 04:00 Intake & Output 06/03/21 06/04/21 06/04/21 18:59 06:59 18:59 Intake Total 120 Output Total 650 Balance 120 -650 Weight 60.328 kg 61 kg Intake: Oral 120 Output: Urine 650 Other: Voiding Method External Catheter # Voids 1 # Bowel Movements 1 - Exam In general patient is alert and oriented 3 in no apparent distress Head normocephalic and atraumatic Neck supple no JVD no goiter no lymphadenopathy Lungs diminished lung sounds bilaterally Heart irregular rate known atrial fibrillation Abdomen is soft nontender nondistended positive bowel sounds no hepatosplenomegaly Extremities no edema. +1 pitting edema Neuro no gross focal neurological deficit - Labs CBC & Chem 7: 06/04/21 07:01 06/04/21 07:01 Labs: Abnormal Lab Results - Last 24 Hours (Table) 06/03/21 06/03/21 06/03/21 Range/Units 07:48 07:48 08:26 RBC 3.46 L (3.80-5.40) m/uL Hgb 10.8 L (11.4-16.0) gm/dL Hct 32.6 L (34.0-46.0) % RDW 17.2 H (11.5-15.5) % Neutrophils # 9.0 H (1.3-7.7) k/uL Lymphocytes # 0.4 L (1.0-4.8) k/uL PT 12.1 H (9.0-12.0) sec INR 1.2 H (<1.2) Sodium 135 L (137-145) mmol/L Carbon Dioxide 20 L (22-30) mmol/L BUN (7-17) mg/dL Creatinine 1.15 H (0.52-1.04) mg/dL Glucose 103 H (74-99) mg/dL Calcium (8.4-10.2) mg/dL AST 55 H (14-36) U/L ALT 39 H (4-34) U/L Total Protein 5.7 L (6.3-8.2) g/dL Albumin 3.0 L (3.5-5.0) g/dL 06/04/21 Range/Units 07:01 RBC (3.80-5.40) m/uL Hgb (11.4-16.0) gm/dL Hct (34.0-46.0) % RDW (11.5-15.5) % Neutrophils # (1.3-7.7) k/uL Lymphocytes # (1.0-4.8) k/uL PT (9.0-12.0) sec INR (<1.2) Sodium 133 L (137-145) mmol/L Carbon Dioxide (22-30) mmol/L BUN 20 H (7-17) mg/dL Creatinine 1.35 H (0.52-1.04) mg/dL Glucose 100 H (74-99) mg/dL Calcium 8.2 L (8.4-10.2) mg/dL AST 47 H (14-36) U/L ALT 38 H (4-34) U/L Total Protein 4.9 L (6.3-8.2) g/dL Albumin 2.5 L (3.5-5.0) g/dL Assessment and Plan Assessment: 1. Shortness of breath secondary to acute on chronic systolic congestive heart failure 2. Underlining history of systolic congestive heart failure with cardiomyopathy with an EF of 25-30% 3. History of atrial fibrillation 4. AICD and pacemaker placement 5. Underlying history of coronary artery disease 6. Underlining history of colon cancer 7. Underlying history of hyperlipidemia 8. Underlying history of anemia. Patient follows with oncology service is Cardiology service is consulted Patient maintained on IV Lasix
[2021-06-04 13:19] VITALS: BMI 26.2
[2021-06-04] MEDS: carvediloL 6.25 MG TAB PO SCH (16:43)
[2021-06-04] MEDS: LUMIGAN 0.01% LEFT EYE SCH (21:20)
[2021-06-04] MEDS: FUROSEMIDE 10 MG/ML 2 ML VIAL IV SCH (21:20)
[2021-06-04] MEDS: PRAVASTATIN SODIUM 80 MG TAB PO SCH (21:37)
[2021-06-05] MEDS: carvediloL 6.25 MG TAB PO SCH ×2 (06:21→16:24)
[2021-06-05] MEDS: LOTEPREDNOL ETABONATE RIGHT EYE SCH (09:21)
[2021-06-05] MEDS: COMBIGAN LEFT EYE SCH ×2 (09:21→20:38)
[2021-06-05] MEDS: SODIUM BICARBONATE TAB 650 MG TAB PO SCH (09:22)
[2021-06-05] MEDS: SACUBITRIL/VALSARTAN 24 MG-26 MG TABLET PO SCH ×2 (09:22→20:36)
[2021-06-05] MEDS: AMIODARONE 200 MG TAB PO SCH (09:22)
[2021-06-05] MEDS: MAGNESIUM OXIDE 400 MG TAB PO SCH ×2 (09:23→20:36)
[2021-06-05] MEDS: CYANOCOBALAMIN 500 MCG TAB PO SCH (09:23)
[2021-06-05] MEDS: PANTOPRAZOLE 40 MG TABLET PO SCH (09:23)
[2021-06-05 09:52] LABS: Anisocytosis Slight; Basophils % (A) 0 %; Eosinophils # (A) 0.3 k/uL (0-0.7); Eosinophils % (A) 4 %; HCT 29.2 % (34.0-46.0); HGB 9.5 gm/dL (11.4-16.0); Hypochromasia Slight; Lymphocytes # (A) 0.3 k/uL (1.0-4.8); Lymphocytes % (A) 4 %; MCH 31.4 pg (25.0-35.0); MCHC 32.5 g/dL (31.0-37.0); MCV 96.7 fL (80.0-100.0); Macrocytosis Slight; Mean Platelet Volume 7.3; Monocytes # (A) 0.2 k/uL (0-1.0); Monocytes % (A) 3 %; Neutrophils # (A) 6.4 k/uL (1.3-7.7); Neutrophils % (A) 88 %; Platelet Count 343 k/uL (150-450); Poikilocytosis Slight; RBC 3.02 m/uL (3.80-5.40); WBC 7.2 k/uL (3.8-10.6)
[2021-06-05 10:16] LABS: Albumin 2.5 g/dL (3.5-5.0); Calcium 8.4 mg/dL (8.4-10.2); Potassium 4.2 mmol/L (3.5-5.1); Total Bilirubin 0.4 mg/dL (0.2-1.3); Total Protein 5.1 g/dL (6.3-8.2)
--- NOTE | 2021-06-05 10:58 | PN ---
PROGRESS NOTE Ms. Contreras is a 76-year-old female with a known history of coronary artery disease status post anterior myocardial infarction in November and stenting in [place], history of colon cancer and subsequent ventricular tachycardia and discharged from [facility]. She subsequently underwent an ICD implantation and shortly after had a cerebrovascular accident. She was anticoagulated. The dye had to be stopped because of GI bleeding. She was admitted with symptoms of progressive dyspnea but no chest pain. No dizziness. No palpitation. She is feeling better. She denies any nausea or vomiting. She denies any cough. She feels tired. She continues to be on amiodarone 200 mg twice a day, Coreg 6.5 mg twice a day, Lasix 20 mg IV q.12 hours, magnesium, Protonix, pravastatin 80 mg daily, Entresto 24-26 mg twice a day and sodium bicarb. PHYSICAL EXAMINATION: Blood pressure running in the low 100s with a heart rate in 50s. LUNGS: Clear. HEART: Regular rhythm S1, S2. No S3 with systolic murmur. No diastolic murmur. ABDOMEN: Soft nontender. EXTREMITIES: No edema. LAB DATA: Lab data revealed BUN and creatinine 24 and 1.31. Her hemoglobin is 9.5. IMPRESSION: 1. Symptoms of congestive heart failure, improving. 2. Ischemic cardiomyopathy status post ICD implant. 3. Status post anterior myocardial infarction, stenting of the LAD in November. 4. History of cerebrovascular accident. 5. History of colon cancer. 6. Worsening renal function. RECOMMENDATIONS: I will switch her to oral diuretics. I will start her on oral diuretics and potassium supplement. I will cut down her amiodarone to 200 mg twice a day, follow the rest of her medication, increase her level activity and if she remains stable, I am hopeful that she will be able to be discharged home in the next 24 hours. MMODL / IJN: [id number] /
[2021-06-05] MEDS: FUROSEMIDE 10 MG/ML 2 ML VIAL IV SCH (11:44)
[2021-06-05] MEDS: FERROUS SULFATE 325 MG TAB PO SCH (11:50)
[2021-06-05] MEDS ORDERED: methylPREDNISolone SOD SUCCI 125 MG/2 ML VIAL IV STA (14:15)
--- NOTE | 2021-06-05 14:19 | PN ---
PROGRESS NOTE Patient is seen for followup for acute kidney injury, mostly cardiorenal. She is currently being diuresed. The patient was maintained on 20 mg of Lasix IV q.12 hours. She has had good urine output with a decrease in weight as well. A 24 hour output was about 1600 cc. Overall, patient states she is feeling much better. Her diuretics have already been switched to p.o. EXAMINATION: On examination today, blood pressure 94/53, heart rate 56 per minute, she is afebrile. Examination of the heart S1, S2. Examination of lungs: Decreased breath sounds at the bases. Abdomen is soft, nontender. Examination of lower extremities shows trace edema bilaterally. 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 LAB: Show sodium 133, potassium 4.2, BUN 24, creatinine 1.3, hemoglobin 9.5 g/dL. ASSESSMENT: 1. Acute kidney injury, cardiorenal, currently stable. Agree with switching to p.o. Lasix. 2. Chronic kidney disease stage 3 secondary to nephrosclerosis. Baseline creatinine about 1. 3. History of colon cancer, status post colectomy with lymph node noted on CT. 4. Anemia of chronic disease. 5. Non gap metabolic acidosis, currently improved. PLAN: Decrease oral sodium bicarb which will also help decrease some of the sodium load. Continue with bedrest. Continue with oral Lasix for now. MMODL / IJN: [id number] /
[2021-06-05] MEDS ORDERED: SODIUM FERRIC GLUCONAT-SUCROSE 125 MG in SODIUM CHLORIDE 0.9% 100 ML IVPB ONE (15:00)
[2021-06-05] MEDS: FUROSEMIDE 20 MG TAB PO SCH (15:15)
--- NOTE | 2021-06-05 19:10 | P.PN ---
Subjective Progress Note Date: 06/05/21 this is a 76-year-old female patient well-known to my services who presented to the ER with concerns of shortness of breath and increased edema. Patient reports that over the past 24 hours symptoms have increased. Patient has had frequent admissions due to hypo-and hyperkalemia. Diuretics were recently stopped. Patient has a past medical history of A. fib, cancer, chest pain, heart failure, myocardial infarction and permanent pacemaker AICD placement. Chest x-ray was completed showing cardiomegaly with increased interstitial reticular pacing likely related to edemapleural effusion. BNP 4510. Patient started on IV Lasix. Cardiology services consulted. Patient's family at bedside all questions answered. Patient reporting improvement already with 1 dose of IV Lasix. At this time patient denies chest pain. Patient denies nausea vomiting or diarrhea. Patient denies any urinary burning or frequency. On 06/04/2021 patient was seen and examined on the telemetry floor, she is alert and oriented 3 in no apparent distress, her shortness of breath has improved, and lower extremity swelling has improved, BUN and creatinine have increased since yesterday, cardiology and nephrology are following and adjusting patient medications, including the blood pressure medications and diuretics. At this time will continue to monitor will follow in a.m. Objective - Vital Signs Vital signs: Vital Signs Temp 98.1 F 06/05/21 11:55 Pulse 56 L 06/05/21 11:55 Resp 18 06/05/21 11:55 BP 94/53 06/05/21 11:55 Pulse Ox 96 06/05/21 11:55 Intake & Output 06/04/21 06/05/21 06/05/21 18:59 06:59 18:59 Intake Total 300 240 Output Total 700 900 350 Balance -400 -900 -110 Weight 61 kg 60.5 kg Intake: Oral 300 240 Output: Urine 700 900 350 Other: Voiding Method External Catheter External Catheter External Catheter # Voids 2 2 - Exam In general patient is alert and oriented 3 in no apparent distress Head normocephalic and atraumatic Neck supple no JVD no goiter no lymphadenopathy Lungs diminished lung sounds bilaterally Heart irregular rate known atrial fibrillation Abdomen is soft nontender nondistended positive bowel sounds no hepatosplenomegaly Extremities no edema. +1 pitting edema Neuro no gross focal neurological deficit - Labs CBC & Chem 7: 06/05/21 08:43 06/05/21 08:43 Labs: Abnormal Lab Results - Last 24 Hours (Table) 06/05/21 06/05/21 Range/Units 08:43 08:43 RBC 3.02 L (3.80-5.40) m/uL Hgb 9.5 L (11.4-16.0) gm/dL Hct 29.2 L (34.0-46.0) % RDW 17.0 H (11.5-15.5) % Lymphocytes # 0.3 L (1.0-4.8) k/uL Sodium 133 L (137-145) mmol/L BUN 24 H (7-17) mg/dL Creatinine 1.31 H (0.52-1.04) mg/dL Glucose 113 H (74-99) mg/dL AST 59 H (14-36) U/L ALT 41 H (4-34) U/L Total Protein 5.1 L (6.3-8.2) g/dL Albumin 2.5 L (3.5-5.0) g/dL Assessment and Plan Assessment: 1. Shortness of breath secondary to acute on chronic systolic congestive heart failure 2. Underlining history of systolic congestive heart failure with cardiomyopathy with an EF of 25-30% 3. History of atrial fibrillation 4. AICD and pacemaker placement 5. Underlying history of coronary artery disease 6. Underlining history of colon cancer 7. Underlying history of hyperlipidemia 8. Underlying history of anemia. Patient follows with oncology service is Cardiology service is consulted Patient maintained on IV Lasix
[2021-06-05] MEDS: PRAVASTATIN SODIUM 80 MG TAB PO SCH (20:36)
[2021-06-05] MEDS: LUMIGAN 0.01% LEFT EYE SCH (20:38)
[2021-06-06] MEDS: carvediloL 6.25 MG TAB PO SCH (07:01)
--- NOTE | 2021-06-06 08:33 | XR ---
EXAMINATION TYPE: XR chest 2V DATE OF EXAM: 06/06/2021 COMPARISON: 06/03/2021 INDICATION: Short of breath TECHNIQUE: Frontal and lateral views of the chest are obtained. FINDINGS: The heart size is normal. Pacemaker overlies left chest. The pulmonary vasculature is normal. Mild infiltrate in the left base. Correlate for atelectasis or pneumonia. Right-sided port is present with the tip in the right atrium. IMPRESSION: 1. Mild infiltrate the left base. Correlate for atelectasis or developing pneumonia
[2021-06-06] MEDS: FUROSEMIDE 20 MG TAB PO SCH (08:44)
[2021-06-06] MEDS: SACUBITRIL/VALSARTAN 24 MG-26 MG TABLET PO SCH ×2 (08:44→20:31)
[2021-06-06] MEDS: POTASSIUM CHLORIDE ER 20 MEQ TAB.ER PO SCH (08:44)
[2021-06-06] MEDS: MAGNESIUM OXIDE 400 MG TAB PO SCH ×2 (08:44→20:30)
[2021-06-06] MEDS: PANTOPRAZOLE 40 MG TABLET PO SCH (08:44)
[2021-06-06] MEDS: LOTEPREDNOL ETABONATE RIGHT EYE SCH (08:45)
[2021-06-06] MEDS: COMBIGAN LEFT EYE SCH ×2 (08:45→20:31)
[2021-06-06] MEDS: CYANOCOBALAMIN 500 MCG TAB PO SCH (08:45)
[2021-06-06] MEDS: AMIODARONE 200 MG TAB PO SCH (08:45)
[2021-06-06] MEDS: TICAGRELOR 90 MG TAB PO SCH ×2 (10:12→20:31)
[2021-06-06 11:13] LABS: Calcium 8.8 mg/dL (8.4-10.2)
--- NOTE | 2021-06-06 11:33 | P.PN ---
Subjective This is a pleasant 75-year-old female past medical history significant for coronary artery disease status post PCI proximal LAD and mid LAD 11/2020, ischemic cardiomyopathy status post AICD placement in 02/2021, dyslipidemia, hypertension. History of CVA shortly after ICD implantation, she was anticoagulated, however this was stopped due to recent GI bleed. History of colon cancer diagnosed about 5 years ago in [place]. At that time the patient underwent bowel resection without colostomy and chemotherapy. She follows in the office with Dr. Nice. We have been asked to see in consultation for congestive heart failure. Limited echo 05/09/2021 revealed an EF of 30-35%. Patient seen and examined at bedside, no acute distress. She states that she is feeling better and her breathing has improved. Denies any chest pain, lightheadedness, dizziness. Patient is currently maintained on amiodarone 200 mg daily, carvedilol 6.25 mg twice a day, Lasix by mouth 20 mg twice a day, pravastatin 80 mg nightly, and Entresto 24 mg/26 mg twice a day. Patient with 1.6 L urine output over the past 24 hours. Weight decreased to 59.5kg from 60kg. GENERAL: Well-appearing, well-nourished and in no acute distress. NECK: Supple without JVD or thyromegaly. LUNGS: Breath sounds clear to auscultation bilaterally. Respiration equal and unlabored. No wheezes, rales or rhonchi. HEART: Regular rate and rhythm Systolic murmur noted, No rubs or gallops. S1 and S2 heard. EXTREMITIES: Normal range of motion. trace bilateral lower extremity edema. No clubbing or cyanosis. Peripheral pulses intact. ASSESSMENT Acute on chronic systolic heart failure Coronary artery disease status post PCI proximal LAD and mid LAD 11/2020 Ischemic cardiomyopathy status post AICD placement in 02/2021 Dyslipidemia Hypertension History of CVA History of colon cancer diagnosed about 5-6 years ago in [place] PLAN Will restart Restart Brilinta and aspirin while inpatient Continue Lasix 20mg daily Continue amiodarone 200mg daily, Coreg 6.25mg BID Continue Entresto, statin Monitor renal function and electrolytes I/Os, daily weights Hopefully patient will be discharged home within 24 hours. Further recommendations based on clinical course Nurse Practitioner note has been reviewed, I agree with a documented findings and plan of care. Patient was seen and examined. Objective - Vital Signs Vital signs: Vital Signs Temp 98.1 F 06/06/21 08:56 Pulse 50 L 06/06/21 09:01 Resp 18 06/06/21 08:57 BP 101/51 06/06/21 08:56 Pulse Ox 97 06/06/21 09:01 Intake & Output 06/05/21 06/06/21 06/06/21 18:59 06:59 18:59 Intake Total 365 240 Output Total 350 350 Balance 15 -350 240 Weight 59.5 kg Intake: Oral 365 240 Output: Urine 350 350 Other: Voiding Method External Catheter External Catheter External Catheter # Voids 2 2 - Labs CBC & Chem 7: 06/05/21 08:43 06/06/21 10:42 Labs: Abnormal Lab Results - Last 24 Hours (Table) 06/05/21 06/05/21 Range/Units 08:43 08:43 RBC 3.02 L (3.80-5.40) m/uL Hgb 9.5 L (11.4-16.0) gm/dL Hct 29.2 L (34.0-46.0) % RDW 17.0 H (11.5-15.5) % Lymphocytes # 0.3 L (1.0-4.8) k/uL Sodium 133 L (137-145) mmol/L BUN 24 H (7-17) mg/dL Creatinine 1.31 H (0.52-1.04) mg/dL Glucose 113 H (74-99) mg/dL AST 59 H (14-36) U/L ALT 41 H (4-34) U/L Total Protein 5.1 L (6.3-8.2) g/dL Albumin 2.5 L (3.5-5.0) g/dL
[2021-06-06] MEDS: FERROUS SULFATE 325 MG TAB PO SCH (11:46)
[2021-06-06] MEDS: ASPIRIN 81 MG PO SCH (11:46)
[2021-06-06 12:53] LABS: Anisocytosis Slight; Basophils % (A) 0 %; Eosinophils % (A) 0 %; HCT 34.1 % (34.0-46.0); HGB 10.9 gm/dL (11.4-16.0); Hypochromasia Slight; Lymphocytes # (A) 0.3 k/uL (1.0-4.8); Lymphocytes % (A) 3 %; MCH 31.2 pg (25.0-35.0); MCHC 31.9 g/dL (31.0-37.0); MCV 97.7 fL (80.0-100.0); Macrocytosis Slight; Monocytes # (A) 0.3 k/uL (0-1.0); Monocytes % (A) 3 %; Neutrophils # (A) 10.8 k/uL (1.3-7.7); Neutrophils % (A) 95 %; Platelet Count 430 k/uL (150-450); Poikilocytosis Slight; RBC 3.49 m/uL (3.80-5.40); WBC 11.4 k/uL (3.8-10.6)
--- NOTE | 2021-06-06 13:46 | PN ---
PROGRESS NOTE Patient is seen for followup for acute kidney injury and volume overload. Patient is currently being diuresed. Serum creatinine did go up slightly to 1.5 mg/dL from 1.1 initially. Patient's Lasix has been decreased and now switched over to once a day from twice a day. She had initially been on IV and it was switched to p.o. yesterday. Overall, patient states she is feeling better. Her 24-hour output is not accurately charted since her external catheter was removed, but she had about 1600 mL prior to that for 24 hours. PHYSICAL EXAMINATION: On examination today, blood pressure 100/50, heart rate 55 per minute. She is afebrile. EXAMINATION OF THE HEART: S1 and S2. EXAMINATION OF LUNGS: Decreased breath sounds at the bases. ABDOMEN: Soft, nontender. LOWER EXTREMITIES: Examination of lower extremities shows no significant edema. 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 LABS: Sodium 132, potassium 4.0, chloride 97. CO2 is 26, BUN 33, creatinine 1.53. ASSESSMENT: 1. Acute kidney injury, cardiorenal. Agree with decreasing Lasix to once a day. Blood pressure is also on the lower side, adding to some degree of acute kidney injury. Patient is maintained on Entresto, which we can continue for now. 2. Chronic kidney disease, stage 3, secondary to nephrosclerosis. Baseline creatinine around 1. 3. History of colon cancer, status post colectomy with lymph node noted on CT scan. 4. Anemia of chronic disease. 5. Metabolic acidosis, currently improved. 6. Cardiomyopathy; ejection fraction 30% to 35%. PLAN: Agree with decreasing Lasix to 20 mg p.o. daily. May continue with the Entresto. Repeat labs in a.m. Monitor urine output. Decrease Coreg, since blood pressure is low. MMODL / IJN: [id number] /
[2021-06-06] MEDS: carvediloL 3.125 MG TAB PO SCH (16:41)
--- NOTE | 2021-06-06 16:44 | P.CNPUL ---
History of Present Illness Consult date: 06/06/21 Requesting physician: Ritu Walker Reason for consult: dyspnea, hypoxemia, abnormal CXR/CT Chief complaint: Shortness of breath, pulmonary edema History of present illness: This is a 76-year-old white female patient with extensive medical history including severe ischemic cardiomyopathy, EF of 30-35%, previous episodes of VT/VF, status post AICD placement, coronary artery disease with previous history of stenting of the RCA and LAD, proximal atrial fibrillation, recent history of a middle cerebral artery CVA requiring neurointervention with complete recovery afterwards, hypertension, hyperlipidemia, and history of colon cancer status post colectomy followed by systemic chemotherapy. We have seen the patient in the last several months during her previous admissions following her episodes of respiratory failure related to arrhythmia, requiring intubation and mechanical ventilator support, and also during during her hospitalization for acute CVA in March 2021. Patient has no history of smoking, and no chronic lung disease. On 06/03/2021 patient came into the emergency department for evaluation of swelling in bilateral feet and arms, and increased shortness of breath. She states that recently she was taken off her Lasix related to worsening of her renal function, and severe hypokalemia. She was placed on Aldactone by her fire information officer, however subsequently her serum potassium is high, and she was taken off the Aldactone as well. Most recently she has been off all maintenance diuretics. She denied any chest pain, no fever or chills, no cough, no phlegm production. She is normally not oxygen dependent at baseline. She states she was placed on supplemental oxygen in the EMS and she felt immediately much better. Her chest x-ray on admission showed cardiac megaly with increased interstitial and reticular opacity likely related to pulmonary edema, there was no sizable effusion. Her admission blood work showed normal white count of 10.2, hemoglobin is 10.8, sodium was 135, potassium is 5.1, CO2 is 20, BUN was 17 and creatinine is 1.15, proBNP is 4510. AST and ALT were mildly elevated at 55 and 39, alkaline phosphatase was within normal limits at 74. Patient was also checked for COVID-19 per PCR test then it was negative. Patient's O2 sat was 87% on room air in the emergency department, and she was placed on supplemental oxygen. Admission EKG showed normal sinus rhythm, with a right bundle branch block, and anteroseptal infarct of undetermined age. She was placed on IV diuretics. Lower extremity edema has improved as well as her shortness of breat h. She remains on carvedilol, she is on home dose amiodarone 200 mg daily, she is on Entresto, baby aspirin, and Brilinta. Today's chest x-ray shows mild infiltrate in the left base, possibly correlating for atelectasis or developing pneumonia, however patient is not acting as having pneumonia, denies any coughing, denies any phlegm production, no chest pain, no fever or chills. Has been diuresed, and her weight has improved and down by 1 kg in the last 24 hours. She is breathing comfortably, she is tolerating ambulation in the room, she states her shortness of breath has improved since admission her main complaint is fatigue with exertion. They just on 2 L of oxygen her pulse ox is 95%, blood pressure stable at 100/50, oh episodes of arrhythmias detected while in the hospital. She had no fever or chills. Lung sounds reveal some scattered rhonchi in the bases. The significant edema involving the bilateral lower extremities, nephrology is following, and monitoring her renal function, which has been worsening since admission, and today's creatinine is up to 1.53 compared to 1.15 on admission. Her BUN today's 33, potassium is 132, potassium is 4.0, chloride is 97, CO2 is 26. White cell count is 11.4, hemoglobin is 10.9. Review of Systems All systems: negative Constitutional: Denies chills, Denies fever Eyes: denies blurred vision, denies pain Ears, nose, mouth and throat: Denies headache, Denies sore throat Cardiovascular: Denies chest pain, Denies shortness of breath Respiratory: Reports dyspnea, Denies cough Gastrointestinal: Denies abdominal pain, Denies diarrhea, Denies nausea, Denies vomiting Genitourinary: Denies dysuria, Denies hematuria Musculoskeletal: Denies myalgias Integumentary: Denies pruritus, Denies rash Neurological: Denies numbness, Denies weakness Psychiatric: Denies anxiety, Denies depression Endocrine: Denies fatigue, Denies weight change Past Medical History Past Medical History: Atrial Fibrillation, Cancer, Chest Pain / Angina, Heart Failure, Myocardial Infarction ([place]) Additional Past Medical History / Comment(s): Cardiomyopathy, Colon cancer. cva with clot removal, Last Myocardial Infarction Date:: 11/2020 History of Any Multi-Drug Resistant Organisms: None Reported Past Surgical History: AICD, Heart Catheterization, Heart Catheterization With Stent, Pacemaker Additional Past Surgical History / Comment(s): CHOLECYSTECTOMY 10/2016, GLAUCOMA, CATARACTS SURG RIGHT EYE 12/13/20, brain clot removal Past Anesthesia/Blood Transfusion Reactions: Postoperative Nausea & Vomiting (PONV) Date of Last Stent Placement:: 12/13/2020 2 STENTS PLACED "FRONT". Type of Cardiac Device: Permanent Pacemaker, AICD Device Placement Date:: 02/2021 Past Psychological History: No Psychological Hx Reported Smoking Status: Never smoker Past Alcohol Use History: Occasional Past Drug Use History: None Reported - Past Family History Father Family Medical History: Diabetes Mellitus Mother Family Medical History: COPD Medications and Allergies Home Medications Medication Instructions Recorded Confirmed Type Bimatoprost [Lumigan .01% Ophth 1 drop LEFT EYE HS 02/27/21 06/03/21 History Soln] Brimonidine Tartrate/Timolol 1 drop LEFT EYE BID 02/27/21 06/03/21 History [Combigan 0.2%-0.5% Eye Drops] Loteprednol Etabonate [Inveltys] 1 drop RIGHT EYE DAILY 02/27/21 06/03/21 History Pantoprazole Sodium [Protonix] 40 mg PO DAILY 02/27/21 06/03/21 History Pravastatin Sodium [Pravachol] 80 mg PO HS 02/27/21 06/03/21 History carvediloL [Coreg*] 12.5 mg PO BID-W/MEALS 30 Days #60 04/19/21 06/03/21 Rx tab Prochlorperazine [Compazine] 5 mg PO Q6HR PRN 2 Days #8 tab 04/20/21 06/03/21 Rx Cyanocobalamin [Vitamin B-12] 500 mcg PO DAILY tab 05/15/21 06/03/21 Rx Meclizine [Antivert] 25 mg PO TID PRN tab 05/15/21 06/03/21 Rx Magnesium Oxide [Mag-Ox] 400 mg PO BID 30 Days #60 tablet 05/16/21 06/03/21 Rx Ferrous Sulfate [Iron (65 MG 325 mg PO W/LUNCH 05/24/21 06/03/21 History Elemental)] Sacubitril/Valsartan [Entresto 24 1 tab PO BID #0 05/26/21 06/03/21 Rx mg-26 mg Tablet] Sodium Bicarbonate Tab 650 mg PO TID tab 05/26/21 06/03/21 Rx Amiodarone [Cordarone] 200 mg PO DAILY tab 06/06/21 Rx Aspirin 81 mg PO DAILY 06/06/21 06/06/21 History Ticagrelor [Brilinta] 90 mg PO BID 06/06/21 06/06/21 History Allergies Allergy/AdvReac Type Severity Reaction Status Date / Time morphine AdvReac Nausea & Verified 06/03/21 08:37 Vomiting Physical Exam Vitals: Vital Signs Temp Pulse Pulse Pulse Resp BP BP 06/06/21 15:29 55 L 18 06/06/21 11:55 55 L 18 06/06/21 09:54 55 L 06/06/21 09:53 18 06/06/21 09:01 50 L 55 L 06/06/21 08:57 18 06/06/21 08:56 98.1 F 58 L 18 101/51 06/06/21 05:00 97.5 F L 60 17 06/06/21 00:45 55 L 16 95/55 06/05/21 20:34 98.2 F 56 L 16 113/53 BP Pulse Ox Pulse Ox Pulse Ox 06/06/21 15:29 06/06/21 11:55 100/50 95 06/06/21 09:54 87 L 06/06/21 09:53 87 L 06/06/21 09:01 97 94 L 06/06/21 08:57 97 06/06/21 08:56 90 L 06/06/21 05:00 129/59 94 L 06/06/21 00:45 92 L 06/05/21 20:34 93 L Intake and Output 06/06/21 06/06/21 06/06/21 06:59 14:59 22:59 Intake Total 420 Output Total 350 Balance -350 420 Intake: Oral 420 Output: Urine 350 Other: Voiding Method External Catheter External Catheter External Catheter # Voids 2 2 Weight 59.5 kg GENERAL EXAM: Alert, pleasant, 76-year-old white female, a 2 L of oxygen and the pulse ox of 95%, sitting up in the recliner, breathing comfortably, comf ortable in no apparent distress. HEAD: Normocephalic/atraumatic. EYES: Normal reaction of pupils, equal size. Conjunctiva pink, sclera white. NOSE: Clear with pink turbinates. THROAT: No erythema or exudates. NECK: No masses, no JVD, no thyroid enlargement, no adenopathy. CHEST: No chest wall deformity. Symmetrical expansion. Her chest AICD insertion site is clean dry and intact LUNGS: Equal air entry with scattered rhonchi over right lower base, and mild rhonchi over left lower base CVS: Regular rate and rhythm, normal S1 and S2, no gallops, no murmurs, no rubs ABDOMEN: Soft, nontender. No hepatosplenomegaly, normal bowel sounds, no guarding or rigidity. EXTREMITIES: No clubbing, no edema, no cyanosis, 2+ pulses and upper and lower extremities. MUSCULOSKELETAL: Muscle strength and tone normal. SPINE: No scoliosis or deformity SKIN: No rashes CENTRAL NERVOUS SYSTEM: Alert and oriented -3. No focal deficits, tone is normal in all 4 extremities. PSYCHIATRIC: Alert and oriented -3. Appropriate affect. Intact judgment and insight. Results - Laboratory Findings CBC and BMP: 06/06/21 10:42 06/06/21 10:42 PT/INR, D-dimer PT 12.1 sec (9.0-12.0) H 06/03/21 08:26 INR 1.2 (<1.2) H 06/03/21 08:26 Abnormal lab findings: Abnormal Labs 06/03/21 06/03/21 06/03/21 07:48 07:48 08:26 WBC RBC 3.46 L Hgb 10.8 L Hct 32.6 L RDW 17.2 H Neutrophils # 9.0 H Lymphocytes # 0.4 L PT 12.1 H INR 1.2 H Sodium 135 L Chloride Carbon Dioxide 20 L BUN Creatinine 1.15 H Glucose 103 H Calcium AST 55 H ALT 39 H Total Protein 5.7 L Albumin 3.0 L 06/04/21 06/04/21 06/05/21 07:01 07:01 08:43 WBC RBC 2.94 L 3.02 L Hgb 9.2 L D 9.5 L Hct 28.1 L 29.2 L RDW 17.2 H 17.0 H Neutrophils # Lymphocytes # 0.4 L 0.3 L PT INR Sodium 133 L Chloride Carbon Dioxide BUN 20 H Creatinine 1.35 H Glucose 100 H Calcium 8.2 L AST 47 H ALT 38 H Total Protein 4.9 L Albumin 2.5 L 06/05/21 06/06/21 06/06/21 08:43 10:42 10:42 WBC 11.4 H RBC 3.49 L Hgb 10.9 L Hct RDW 16.0 H Neutrophils # 10.8 H Lymphocytes # 0.3 L PT INR Sodium 133 L 132 L Chloride 97 L Carbon Dioxide BUN 24 H 33 H Creatinine 1.31 H 1.53 H Glucose 113 H 182 H Calcium AST 59 H ALT 41 H Total Protein 5.1 L Albumin 2.5 L - Diagnostic Findings Chest x-ray: report reviewed, image reviewed Additional studies: EKG reviewed Assessment and Plan Plan: Assessment: #1. Acute hypoxic respiratory failure related to acute exacerbation of systolic CHF. COVID-19 PCR was negative, pneumonia was considered to be less likely. Chest X-ray on admission showed cardiomegaly and interstitial edema, without significant pleural effusions #2. Acute kidney injury related to diuretic therapy, severe cardiomyopathy #3. Ischemic cardiomyopathy with EF of 30-35% status post AICD placement #4. Previous episodes of DVTs/V. fib, status post AICD placement #5. Coronary artery disease with previous stenting of the LAD and RCA #6. Recent history of a embolic stroke of the middle cerebral artery in March 2021 requiring neuro intervention with complete recovery, and the neuro interv ention was done at the [facility] #7. Hypertension #8. Previous episode of myocardial infarction #9. Practice monitor her ventilation #10. Never smoker, no history of chronic lung disease #11. History of colon cancer status post surgical resection and chemotherapy Plan: Today's chest x-ray has been reviewed showing possibility of left base atelectasis, or infiltrate. Pneumonia seems to be less likely Fluid volume status has improved, shortness of breath and edema have improved Diuretics per cardiology Monitor electrolytes and renal profile Currently patient is requiring just 2 L of oxygen, will continue to wean Increase activity as tolerated Continue to follow I performed a history & physical examination of the patient and discussed their management with my nurse practitioner, Elizabeth Dial. I reviewed the nurse practitioner's note and agree with the documented findings and plan of care. Lung sounds are positive for a few rhonchi throughout the lung cabrales. The findings and the impression was discussed with the patient. I attest to the documentation by the nurse practitioner. Time with Patient: Greater than 30
--- NOTE | 2021-06-06 17:38 | P.PN ---
Subjective Progress Note Date: 06/06/21 this is a 76-year-old female patient well-known to my services who presented to the ER with concerns of shortness of breath and increased edema. Patient reports that over the past 24 hours symptoms have increased. Patient has had frequent admissions due to hypo-and hyperkalemia. Diuretics were recently stopped. Patient has a past medical history of A. fib, cancer, chest pain, heart failure, myocardial infarction and permanent pacemaker AICD placement. Chest x-ray was completed showing cardiomegaly with increased interstitial reticular pacing likely related to edemapleural effusion. BNP 4510. Patient started on IV Lasix. Cardiology services consulted. Patient's family at bedside all questions answered. Patient reporting improvement already with 1 dose of IV Lasix. At this time patient denies chest pain. Patient denies nausea vomiting or diarrhea. Patient denies any urinary burning or frequency. On 06/04/2021 patient was seen and examined on the telemetry floor, she is alert and oriented 3 in no apparent distress, her shortness of breath has improved, and lower extremity swelling has improved, BUN and creatinine have increased since yesterday, cardiology and nephrology are following and adjusting patient medications, including the blood pressure medications and diuretics. At this time will continue to monitor will follow in a.m. On 06/05/2021 patient was seen and examined on the telemetry floor, she is alert and oriented 3 in no apparent distress, her shortness of breath he is improving and lower extremity swelling has improved, BUN and creatinine have increased since yesterday, cardiology and nephrology are following and adjusting patient medications, including the blood pressure medications and diuretics. At this time will continue to monitor will follow in a.m. On 06/06/2021 patient was seen and examined on the telemetry floor she is alert and oriented 3 in no apparent distress, she is still complaining of shortness of breath with activity otherwise she denies any complaints there is no fever or chills no headache or dizziness no chest pain no palpitation no cough no nausea or vomiting no abdominal pain no diarrhea no blood in the stools no burning with urination no frequency or urgency and no hematuria. At this time medications are being adjusted by cardiology and nephrology Coreg dose has been decreased to 3.125 mg twice daily aspirin and Brillinta has been restarted by cardiology and dose of Lasix has been decreased to 20 mg daily Will continue to monitor will recheck labs in a.m. patient received a dose of IV iron yesterday and hemoglobin today is up to 10.9 Objective - Vital Signs Vital signs: Vital Signs Temp 97.3 F L 06/06/21 16:38 Pulse 56 L 06/06/21 16:40 Resp 18 06/06/21 16:38 BP 116/56 06/06/21 16:38 Pulse Ox 97 06/06/21 16:40 Intake & Output 06/05/21 06/06/21 06/06/21 18:59 06:59 18:59 Intake Total 365 420 Output Total 350 350 Balance 15 -350 420 Weight 59.5 kg Intake: Oral 365 420 Output: Urine 350 350 Other: Voiding Method External Catheter External Catheter External Catheter # Voids 2 2 2 - Exam In general patient is alert and oriented 3 in no apparent distress Head normocephalic and atraumatic Neck supple no JVD no goiter no lymphadenopathy Lungs diminished lung sounds bilaterally Heart irregular rate known atrial fibrillation Abdomen is soft nontender nondistended positive bowel sounds no hepatosplenomegaly Extremities no edema. +1 pitting edema Neuro no gross focal neurological deficit - Labs CBC & Chem 7: 06/06/21 10:42 06/06/21 10:42 Labs: Abnormal Lab Results - Last 24 Hours (Table) 06/06/21 06/06/21 Range/Units 10:42 10:42 WBC 11.4 H (3.8-10.6) k/uL RBC 3.49 L (3.80-5.40) m/uL Hgb 10.9 L (11.4-16.0) gm/dL RDW 16.0 H (11.5-15.5) % Neutrophils # 10.8 H (1.3-7.7) k/uL Lymphocytes # 0.3 L (1.0-4.8) k/uL Sodium 132 L (137-145) mmol/L Chloride 97 L (98-107) mmol/L BUN 33 H (7-17) mg/dL Creatinine 1.53 H (0.52-1.04) mg/dL Glucose 182 H (74-99) mg/dL Assessment and Plan Assessment: 1. Shortness of breath secondary to acute on chronic systolic congestive heart failure 2. Underlining history of systolic congestive heart failure with cardiomyopathy with an EF of 25-30% 3. History of atrial fibrillation 4. AICD and pacemaker placement 5. Underlying history of coronary artery disease 6. Underlining history of colon cancer 7. Underlying history of hyperlipidemia 8. Underlying history of anemia. Patient follows with oncology service is Cardiology service is consulted Patient maintained on IV Lasix
[2021-06-06] MEDS: PRAVASTATIN SODIUM 80 MG TAB PO SCH (20:31)
[2021-06-06] MEDS: LUMIGAN 0.01% LEFT EYE SCH (20:31)
[2021-06-07] MEDS: carvediloL 3.125 MG TAB PO SCH ×2 (06:22→16:57)
[2021-06-07 08:55] LABS: Anisocytosis Slight; Basophils % (A) 0 %; Eosinophils # (A) 0.3 k/uL (0-0.7); Eosinophils % (A) 4 %; HCT 29.7 % (34.0-46.0); HGB 9.6 gm/dL (11.4-16.0); Hypochromasia Slight; Lymphocytes # (A) 0.4 k/uL (1.0-4.8); Lymphocytes % (A) 4 %; MCH 31.5 pg (25.0-35.0); MCHC 32.5 g/dL (31.0-37.0); MCV 97.1 fL (80.0-100.0); Mean Platelet Volume 7.8; Monocytes # (A) 0.4 k/uL (0-1.0); Monocytes % (A) 4 %; Neutrophils # (A) 8.2 k/uL (1.3-7.7); Neutrophils % (A) 88 %; Platelet Count 342 k/uL (150-450); RBC 3.06 m/uL (3.80-5.40); RDW 16.2 % (11.5-15.5); WBC 9.4 k/uL (3.8-10.6)
[2021-06-07] MEDS ORDERED: FUROSEMIDE 20 MG TAB PO SCH (09:00)
[2021-06-07] MEDS: ASPIRIN 81 MG PO SCH (09:12)
[2021-06-07] MEDS: CYANOCOBALAMIN 500 MCG TAB PO SCH (09:12)
[2021-06-07] MEDS: AMIODARONE 200 MG TAB PO SCH (09:12)
[2021-06-07] MEDS: SACUBITRIL/VALSARTAN 24 MG-26 MG TABLET PO SCH ×2 (09:13→20:31)
[2021-06-07] MEDS: PANTOPRAZOLE 40 MG TABLET PO SCH (09:13)
[2021-06-07] MEDS: MAGNESIUM OXIDE 400 MG TAB PO SCH ×2 (09:13→20:31)
[2021-06-07] MEDS: POTASSIUM CHLORIDE ER 20 MEQ TAB.ER PO SCH (09:13)
[2021-06-07] MEDS: TICAGRELOR 90 MG TAB PO SCH ×2 (09:14→20:31)
[2021-06-07] MEDS: LOTEPREDNOL ETABONATE RIGHT EYE SCH (09:15)
[2021-06-07] MEDS: COMBIGAN LEFT EYE SCH ×2 (09:15→20:31)
[2021-06-07 09:25] LABS: Albumin 2.4 g/dL (3.5-5.0); Calcium 8.4 mg/dL (8.4-10.2); Potassium 4.5 mmol/L (3.5-5.1); Total Bilirubin 0.3 mg/dL (0.2-1.3); Total Protein 4.9 g/dL (6.3-8.2)
--- NOTE | 2021-06-07 09:58 | P.PN ---
Subjective This is a pleasant 75-year-old female past medical history significant for coronary artery disease status post PCI proximal LAD and mid LAD 11/2020, ischemic cardiomyopathy status post AICD placement in 02/2021, dyslipidemia, hypertension. History of CVA shortly after ICD implantation, she was anticoagulated, however this was stopped due to recent GI bleed. History of colon cancer diagnosed about 5 years ago in [place]. At that time the patient underwent bowel resection without colostomy and chemotherapy. She follows in the office with Dr. Nice. We have been asked to see in consultation for congestive heart failure. Limited echo 05/09/2021 revealed an EF of 30-35%. Patient seen and examined at bedside, no acute distress. She states that she is feeling better and her breathing has improved. Denies any chest pain, lightheadedness, dizziness. Patient's coreg was decreased per nephrology to 3.25ng BID. Patient is currently maintained on amiodarone 200 mg daily, Lasix PO 20 mg twice a day, pravastatin 80 mg nightly, and Entresto 24 mg/26 mg twice a day. Patient with 700mL urine output over the past 24 hours. Weight decreased t o 58.7 kg from 59.5kg. G reviewed WBC 9.4, hemoglobin 9.6, platelets 342, sodium 132, potassium 4.5, BUN 43, serum creatinine 1.7 (1.53 yesterday). GENERAL: Well-appearing, well-nourished and in no acute distress. NECK: Supple without JVD or thyromegaly. LUNGS: Breath sounds clear to auscultation bilaterally. Respiration equal and unlabored. No wheezes, rales or rhonchi. HEART: Regular rate and rhythm Systolic murmur noted, No rubs or gallops. S1 and S2 heard. EXTREMITIES: Normal range of motion. trace bilateral lower extremity edema. No clubbing or cyanosis. Peripheral pulses intact. ASSESSMENT Acute on chronic systolic heart failure, NYHA class III Coronary artery disease status post PCI proximal LAD and mid LAD 11/2020 Ischemic cardiomyopathy status post AICD placement in 02/2021 Dyslipidemia History of Hypertension History of CVA History of colon cancer diagnosed about 5-6 years ago in [place] Acute on Chronic Kidney Disease PLAN Stop PO Lasix 20mg daily due to elevated creatinine Nephrology following, appreciate recommendations Continue Brilinta and aspirin Continue amiodarone and Coreg, Entresto, statin Monitor renal function and electrolytes I/Os, daily weights Hopefully patient will be discharged home within 24 to 48 hours. Further recommendations based on clinical course Nurse Practitioner note has been reviewed, I agree with a documented findings and plan of care. Patient was seen and examined. Objective - Vital Signs Vital signs: Vital Signs Temp 97.6 F 06/07/21 09:38 Pulse 50 L 06/07/21 09:38 Resp 18 06/07/21 09:38 BP 97/52 06/07/21 09:38 Pulse Ox 99 06/07/21 09:38 Intake & Output 06/06/21 06/07/21 06/07/21 18:59 06:59 18:59 Intake Total 642 236 Balance 642 236 Weight 58.7 kg Intake: Oral 642 236 Other: Voiding Method External Catheter External Catheter # Voids 2 1 - Labs CBC & Chem 7: 06/07/21 08:35 06/07/21 08:35 Labs: Abnormal Lab Results - Last 24 Hours (Table) 06/06/21 06/06/21 06/06/21 Range/Units 10:42 10:42 10:42 WBC 11.4 H (3.8-10.6) k/uL RBC 3.49 L (3.80-5.40) m/uL Hgb 10.9 L (11.4-16.0) gm/dL Hct (34.0-46.0) % RDW 16.0 H (11.5-15.5) % Neutrophils # 10.8 H (1.3-7.7) k/uL Lymphocytes # 0.3 L (1.0-4.8) k/uL Sodium 132 L (137-145) mmol/L Chloride 97 L (98-107) mmol/L BUN 33 H (7-17) mg/dL Creatinine 1.53 H (0.52-1.04) mg/dL Glucose 182 H (74-99) mg/dL AST (14-36) U/L ALT (4-34) U/L Total Protein (6.3-8.2) g/dL Albumin (3.5-5.0) g/dL Carcinoembryonic Ag 24.4 H (0.0-4.9) ng/mL 06/07/21 06/07/21 Range/Units 08:35 08:35 WBC (3.8-10.6) k/uL RBC 3.06 L (3.80-5.40) m/uL Hgb 9.6 L (11.4-16.0) gm/dL Hct 29.7 L (34.0-46.0) % RDW 16.2 H (11.5-15.5) % Neutrophils # 8.2 H (1.3-7.7) k/uL Lymphocytes # 0.4 L (1.0-4.8) k/uL Sodium 132 L (137-145) mmol/L Chloride (98-107) mmol/L BUN 43 H (7-17) mg/dL Creatinine 1.79 H (0.52-1.04) mg/dL Glucose 137 H (74-99) mg/dL AST 60 H (14-36) U/L ALT 51 H (4-34) U/L Total Protein 4.9 L (6.3-8.2) g/dL Albumin 2.4 L (3.5-5.0) g/dL Carcinoembryonic Ag (0.0-4.9) ng/mL
[2021-06-07] MEDS: FERROUS SULFATE 325 MG TAB PO SCH (12:25)
--- NOTE | 2021-06-07 13:11 | PN ---
PROGRESS NOTE Patient is seen for followup for acute kidney injury, mostly cardiorenal. Serum creatinine is up slightly at 1.79 from 1.5 yesterday. Patient's Lasix has changed to p.o. and it was decreased to once a day from twice a day yesterday. Overall, patient states she is feeling better. Her blood pressure has been running quite low with systolic 97-92 mmHg occasionally. The patient is maintained on Entresto. Dose of Coreg was decreased yesterday with parameters added to hold for systolic blood pressure of less than 110. EXAMINATION: On examination today, blood pressure 97/52, heart rate 50 per minute. She is afebrile. Examination of the heart S1, S2. Examination of the lungs, bilateral breath sounds are heard. Abdomen is soft, nontender. Examination of lower extremities show no evidence of edema. BUSINESS TRAINER exam grossly intact. LAB: Show sodium 132, potassium 4.5, chloride 100, BUN 43, creatinine 1.79. ASSESSMENT: 1. Acute kidney injury, cardiorenal, with renal function slightly worse, mostly associated with low blood pressure. Coreg has been held and patient remains on Entresto. I will hold off on midodrine given her congestive heart failure history and cardiomyopathy. 2. Chronic kidney disease stage 3 secondary to nephrosclerosis. Baseline creatinine around 1. 3. History of colon cancer, status post colectomy with lymph node noted on CT scan. 4. Anemia of chronic disease. 5. Metabolic acidosis currently improved. 6. Cardiomyopathy, ejection fraction 30 to 35%. PLAN: May continue with Entresto unless blood pressure remain significantly low. We may need to decrease the dose to half a tablet twice a day. Continue with parameters on the Coreg to hold for systolic blood pressure of less than 110 mmHg. Repeat labs in a.m. May need to hold Lasix if no improvement in renal function. MMODL / IJN: [id number] / MTDD
--- NOTE | 2021-06-07 14:52 | P.PN ---
Subjective Progress Note Date: 06/07/21 this is a 76-year-old female patient well-known to my services who presented to the ER with concerns of shortness of breath and increased edema. Patient reports that over the past 24 hours symptoms have increased. Patient has had frequent admissions due to hypo-and hyperkalemia. Diuretics were recently stopped. Patient has a past medical history of A. fib, cancer, chest pain, heart failure, myocardial infarction and permanent pacemaker AICD placement. Chest x-ray was completed showing cardiomegaly with increased interstitial reticular pacing likely related to edemapleural effusion. BNP 4510. Patient started on IV Lasix. Cardiology services consulted. Patient's family at bedside all questions answered. Patient reporting improvement already with 1 dose of IV Lasix. At this time patient denies chest pain. Patient denies nausea vomiting or diarrhea. Patient denies any urinary burning or frequency. On 06/04/2021 patient was seen and examined on the telemetry floor, she is alert and oriented 3 in no apparent distress, her shortness of breath has improved, and lower extremity swelling has improved, BUN and creatinine have increased since yesterday, cardiology and nephrology are following and adjusting patient medications, including the blood pressure medications and diuretics. At this time will continue to monitor will follow in a.m. On 06/05/2021 patient was seen and examined on the telemetry floor, she is alert and oriented 3 in no apparent distress, her shortness of breath he is improving and lower extremity swelling has improved, BUN and creatinine have increased since yesterday, cardiology and nephrology are following and adjusting patient medications, including the blood pressure medications and diuretics. At this time will continue to monitor will follow in a.m. On 06/06/2021 patient was seen and examined on the telemetry floor she is alert and oriented 3 in no apparent distress, she is still complaining of shortness of breath with activity otherwise she denies any complaints there is no fever or chills no headache or dizziness no chest pain no palpitation no cough no nausea or vomiting no abdominal pain no diarrhea no blood in the stools no burning with urination no frequency or urgency and no hematuria. At this time medications are being adjusted by cardiology and nephrology Coreg dose has been decreased to 3.125 mg twice daily aspirin and Brillinta has been restarted by cardiology and dose of Lasix has been decreased to 20 mg daily Will continue to monitor will recheck labs in a.m. patient received a dose of IV iron yesterday and hemoglobin today is up to 10.9 On 06/07/2021 patient was seen and examined on the telemetry floor, case was discussed with paint spraying machine operator helper Dr. Nice, today creatinine is more elevated at 1.79, pulse ox dropped at night to 87%, otherwise patient denies any complaints there is no fever or chills no headache or dizziness no chest pain no shortness of breath no palpitation no cough no nausea or vomiting no abdominal pain no diarrhea no blood in the stools no burning with urination no frequency or urgenc y and no hematuria, there is no weakness or numbness in any of the extremities no change in vision speech or gait. At this time Lasix is on hold, will recheck labs in a.m.. Objective - Vital Signs Vital signs: Vital Signs Temp 97.6 F 06/07/21 09:38 Pulse 50 L 06/07/21 09:38 Resp 18 06/07/21 09:38 BP 97/52 06/07/21 09:38 Pulse Ox 99 06/07/21 09:38 Intake & Output 06/06/21 06/07/21 06/07/21 18:59 06:59 18:59 Intake Total 642 236 Balance 642 236 Weight 58.7 kg Intake: Oral 642 236 Other: Voiding Method External Catheter External Catheter # Voids 2 1 - Exam In general patient is alert and oriented 3 in no apparent distress Head normocephalic and atraumatic Neck supple no JVD no goiter no lymphadenopathy Lungs diminished lung sounds bilaterally Heart irregular rate known atrial fibrillation Abdomen is soft nontender nondistended positive bowel sounds no hepatosplenomegaly Extremities no edema. +1 pitting edema Neuro no gross focal neurological deficit - Labs CBC & Chem 7: 06/07/21 08:35 06/07/21 08:35 Labs: Abnormal Lab Results - Last 24 Hours (Table) 06/06/21 06/06/21 06/06/21 Range/Units 10:42 10:42 10:42 WBC 11.4 H (3.8-10.6) k/uL RBC 3.49 L (3.80-5.40) m/uL Hgb 10.9 L (11.4-16.0) gm/dL Hct (34.0-46.0) % RDW 16.0 H (11.5-15.5) % Neutrophils # 10.8 H (1.3-7.7) k/uL Lymphocytes # 0.3 L (1.0-4.8) k/uL Sodium 132 L (137-145) mmol/L Chloride 97 L (98-107) mmol/L BUN 33 H (7-17) mg/dL Creatinine 1.53 H (0.52-1.04) mg/dL Glucose 182 H (74-99) mg/dL AST (14-36) U/L ALT (4-34) U/L Total Protein (6.3-8.2) g/dL Albumin (3.5-5.0) g/dL Carcinoembryonic Ag 24.4 H (0.0-4.9) ng/mL 06/07/21 06/07/21 Range/Units 08:35 08:35 WBC (3.8-10.6) k/uL RBC 3.06 L (3.80-5.40) m/uL Hgb 9.6 L (11.4-16.0) gm/dL Hct 29.7 L (34.0-46.0) % RDW 16.2 H (11.5-15.5) % Neutrophils # 8.2 H (1.3-7.7) k/uL Lymphocytes # 0.4 L (1.0-4.8) k/uL Sodium 132 L (137-145) mmol/L Chloride (98-107) mmol/L BUN 43 H (7-17) mg/dL Creatinine 1.79 H (0.52-1.04) mg/dL Glucose 137 H (74-99) mg/dL AST 60 H (14-36) U/L ALT 51 H (4-34) U/L Total Protein 4.9 L (6.3-8.2) g/dL Albumin 2.4 L (3.5-5.0) g/dL Carcinoembryonic Ag (0.0-4.9) ng/mL Assessment and Plan Assessment: 1. Shortness of breath secondary to acute on chronic systolic congestive heart failure 2. Underlining history of systolic congestive heart failure with cardiomyopathy with an EF of 25-30% 3. History of atrial fibrillation 4. AICD and pacemaker placement 5. Underlying history of coronary artery disease 6. Underlining history of colon cancer 7. Underlying history of hyperlipidemia 8. Underlying history of anemia. Patient follows with oncology service is Cardiology service is consulted Patient maintained on IV Lasix
--- NOTE | 2021-06-07 16:56 | P.PN ---
Subjective Progress Note Date: 06/07/21 Principal diagnosis: Shortness of breath, acute hypoxic respiratory failure This is a 76-year-old white female patient with extensive medical history including severe ischemic cardiomyopathy, EF of 30-35%, previous episodes of VT/VF, status post AICD placement, coronary artery disease with previous history of stenting of the RCA and LAD, proximal atrial fibrillation, recent history of a middle cerebral artery CVA requiring neurointervention with complete recovery afterwards, hypertension, hyperlipidemia, and history of colon cancer status post colectomy followed by systemic chemotherapy. We have seen the patient in the last several months during her previous admissions following her episodes of respiratory failure related to arrhythmia, requiring intubation and mechanical ventilator support, and also during during her hospitalization for acute CVA in March 2021. Patient has no history of smoking, and no chronic lung disease. On 06/03/2021 patient came into the emergency department for evaluation of swelling in bilateral feet and arms, and increased shortness of breath. She states that recently she was taken off her Lasix related to worsening of her renal function, and severe hypokalemia. She was placed on Aldactone by her manager labor delivery, however subsequently her serum potassium is high, and she was taken off the Aldactone as well. Most recently she has been off all maintenance diuretics. She denied any chest pain, no fever or chills, no cough, no phlegm production. She is normally not oxygen dependent at baseline. She states she was placed on supplemental oxygen in the EMS and she felt immediately much better. Her chest x-ray on admission showed cardiac megaly with increased interstitial and reticular opacity likely related to pulmonary edema, there was no sizable effusion. Her admission blood work showed normal white count of 10.2, hemogl obin is 10.8, sodium was 135, potassium is 5.1, CO2 is 20, BUN was 17 and creatinine is 1.15, proBNP is 4510. AST and ALT were mildly elevated at 55 and 39, alkaline phosphatase was within normal limits at 74. Patient was also checked for COVID-19 per PCR test then it was negative. Patient's O2 sat was 87% on room air in the emergency department, and she was placed on supplemental oxygen. Admission EKG showed normal sinus rhythm, with a right bundle branch block, and anteroseptal infarct of undetermined age. She was placed on IV diuretics. Lower extremity edema has improved as well as her shortness of breath. She remains on carvedilol, she is on home dose amiodarone 200 mg daily, she is on Entresto, baby aspirin, and Brilinta. Today's chest x-ray shows mild infiltrate in the left base, possibly correlating for atelectasis or developing pneumonia, however patient is not acting as having pneumonia, denies any coughing, denies any phlegm production, no chest pain, no fever or chills. Has been diuresed, and her weight has improved and down by 1 kg in the last 24 hours. She is breathing comfortably, she is tolerating ambulation in the room, she states her shortness of breath has improved since admission her main complaint is fatigue with exertion. They just on 2 L of oxygen her pulse ox is 95%, blood pressure stable at 100/50, oh episodes of arrhythmias detected while in the hospital. She had no fever or chills. Lung sounds reveal some scattered rhonchi in the bases. The significant edema involving the bilateral lower extremities, nephrology is following, and monitoring her renal function, which has been worsening since admission, and today's creatinine is up to 1.53 compared to 1.15 on admission. Her BUN today's 33, potassium is 132, potassium is 4.0, chloride is 97, CO2 is 26. White cell count is 11.4, hemoglobin is 10.9. On 06/07/2021 patient seen in follow-up on selective care unit, she is breathing easier today, she is currently on room air, with pulse ox of 92%, lung sounds are positive for minimal crackles, no rhonchi or wheezing, she's been afebrile, no complaints of cough or chest discomfort, no phlegm production. It appears that her diuretics are again on hold. Her creatinine was worsening steadily since admission, and on today's labs creatinine is up to 1.79, BUN was 43, sodium was 132, there is significant swelling within normal limits, she's had no fever or chills. No nausea vomiting or diarrhea, patient continues on Coreg, aspirin and Brilinta. Objective - Vital Signs Vital signs: Vital Signs Temp 98.5 F 06/07/21 12:13 Pulse 55 L 06/07/21 12:13 Resp 18 06/07/21 14:01 BP 97/50 06/07/21 12:13 Pulse Ox 92 L 06/07/21 14:01 Intake & Output 06/06/21 06/07/21 06/07/21 18:59 06:59 18:59 Intake Total 642 472 Output Total 600 Balance 642 -128 Weight 58.7 kg Intake: Oral 642 472 Output: Urine 600 Other: Voiding Method External Catheter External Catheter Toilet # Voids 2 1 - Exam GENERAL EXAM: Alert, pleasant, 76-year-old white female, on room air and the pulse ox of 95%, sitting up in the recliner, breathing comfortably, comfortable in no apparent distress. HEAD: Normocephalic/atraumatic. EYES: Normal reaction of pupils, equal size. Conjunctiva pink, sclera white. NOSE: Clear with pink turbinates. THROAT: No erythema or exudates. NECK: No masses, no JVD, no thyroid enlargement, no adenopathy. CHEST: No chest wall deformity. Symmetrical expansion. Her chest AICD insertion site is clean dry and intact LUNGS: Equal air entry with scattered rhonchi over right lower base, and mild rhonchi over left lower base CVS: Regular rate and rhythm, normal S1 and S2, no gallops, no murmurs, no rubs ABDOMEN: Soft, nontender. No hepatosplenomegaly, normal bowel sounds, no guarding or rigidity. EXTREMITIES: No clubbing, no edema, no cyanosis, 2+ pulses and upper and lower extremities. MUSCULOSKELETAL: Muscle strength and tone normal. SPINE: No scoliosis or deformity SKIN: No rashes CENTRAL NERVOUS SYSTEM: Alert and oriented -3. No focal deficits, tone is normal in all 4 extremities. PSYCHIATRIC: Alert and oriented -3. Appropriate affect. Intact judgment and insight. - Labs CBC & Chem 7: 06/07/21 08:35 06/07/21 08:35 Labs: Abnormal Lab Results - Last 24 Hours (Table) 06/06/21 06/07/21 06/07/21 Range/Units 10:42 08:35 08:35 RBC 3.06 L (3.80-5.40) m/uL Hgb 9.6 L (11.4-16.0) gm/dL Hct 29.7 L (34.0-46.0) % RDW 16.2 H (11.5-15.5) % Neutrophils # 8.2 H (1.3-7.7) k/uL Lymphocytes # 0.4 L (1.0-4.8) k/uL Sodium 132 L (137-145) mmol/L BUN 43 H (7-17) mg/dL Creatinine 1.79 H (0.52-1.04) mg/dL Glucose 137 H (74-99) mg/dL Magnesium (1.6-2.3) mg/dL AST 60 H (14-36) U/L ALT 51 H (4-34) U/L Total Protein 4.9 L (6.3-8.2) g/dL Albumin 2.4 L (3.5-5.0) g/dL Carcinoembryonic Ag 24.4 H (0.0-4.9) ng/mL 06/07/21 Range/Units 10:43 RBC (3.80-5.40) m/uL Hgb (11.4-16.0) gm/dL Hct (34.0-46.0) % RDW (11.5-15.5) % Neutrophils # (1.3-7.7) k/uL Lymphocytes # (1.0-4.8) k/uL Sodium (137-145) mmol/L BUN (7-17) mg/dL Creatinine (0.52-1.04) mg/dL Glucose (74-99) mg/dL Magnesium 2.6 H (1.6-2.3) mg/dL AST (14-36) U/L ALT (4-34) U/L Total Protein (6.3-8.2) g/dL Albumin (3.5-5.0) g/dL Carcinoembryonic Ag (0.0-4.9) ng/mL Assessment and Plan Plan: Assessment: #1. Acute hypoxic respiratory failure related to acute exacerbation of systolic CHF. COVID-19 PCR was negative, pneumonia was considered to be less likely. Chest X-ray on admission showed cardiomegaly and interstitial edema, without significant pleural effusions #2. Acute kidney injury related to diuretic therapy, severe cardiomyopathy #3. Ischemic cardiomyopathy with EF of 30-35% status post AICD placement #4. Previous episodes of DVTs/V. fib, status post AICD placement #5. Coronary artery disease with previous stenting of the LAD and RCA #6. Recent history of a embolic stroke of the middle cerebral artery in March 2021 requiring neuro intervention with complete recovery, and the neuro intervention was done at the [facility] #7. Hypertension #8. Previous episode of myocardial infarction #9. Practice monitor her ventilation #10. Never smoker, no history of chronic lung disease #11. History of colon cancer status post surgical resection and chemotherapy #12. History of anemia, and patient follows with oncology services Plan: Patient is on room air No worsening dyspnea, Diuretics are again on hold for worsening renal function No fever or chills, no cough or phlegm production Possibility of pneumonia seems to be less likely Lower extremity edema has improved, patient is tolerating ambulation CEA level came back elevated and patient will need further workup Oncology services are following Otherwise stable from pulmonary perspective and could be considered for discharge home when cleared by cardiology and medicine I performed a history & physical examination of the patient and discussed their management with my nurse practitioner, Elizabeth Dial. I reviewed the nurse practitioner's note and agree with the documented findings and plan of care. Lung sounds are positive for a few rhonchi throughout the lung cabrales. The findings and the impression was discussed with the patient. I attest to the documentation by the nurse practitioner. Time with Patient: Less than 30
[2021-06-07] MEDS: LUMIGAN 0.01% LEFT EYE SCH (20:31)
[2021-06-07] MEDS: PRAVASTATIN SODIUM 80 MG TAB PO SCH (20:31)
--- NOTE | 2021-06-07 23:15 | P.CONS ---
History of Present Illness - Reason for Consult Consult date: 06/07/21 Metastatic Colon Cancer and Anemia Requesting physician: Ritu Walker - History of Present Illness Valerie is being evaluated in office today to resume Oncologic care of recently diagnosed metastatic Colon Cancer. She presented to PCP in [place] with bloating, abdominal discomfort and weight loss, she was found to have microcytic anemia and refered to Gi > Had EGD/Colonoscopy on 11/13/2017 revealing cicumfrential mass in transverse Colon, biopsy was C/W Adenocarcinoma. She had partial Hemicolectomt with intraperitoneal tumor biopsy and right salpingo- oophorectomy on 12/02/2017 revealing 7cm moderately differentiated Adenocarcinoma extending to Omentum with involvement of 04/17 Lymph nodes, pelvic and retroperitoneal mets were identified as well. She was seen by Dr Bal (Medical Oncology)> started on palliative Chemotherapy with FOLFOX/Avastin regimen > tolerated well to start, but she developed severe peripheral neuropathy including motor neuropathy in feet, severe numbness in hands and ptosis (MRI of brain negative) > Oxalplatinum stopped > Chemotherapy resumed with 5FU/Leucovorin/Avastin. Total of 7 cycles given, Avastin held cycle#7 (Given 04/14/18) due to possible L Breast Core needle biopsy after routine screening mammograms revealed mildly suspecious calcifications. She feels well, no abdominal pain, has intermitent constipation, no N/V. Has mild upper extremities hands sensory neuropathy. No further anorexia or weight loss, remains fully active. She denies family history of Colon or breast Ca, a lifetime non smoker, denies ETOH use. She is being treated for Avastin-induced mild HTN. 05/21/18: Feels well, tolerating 5FU/Avastin well, fully active, no abdominal pain. 06/18/18: Feels Ok, completed Chemotherapy, had abnormal mammogram with Calcium deposits in UOQ L Breast. 02/10/19: Feels well, tolerating Avastin well ([id number]) without any side effects, remains fully active. 03/23/19Toleraing Avastin well, had recent UTI > symptoms resolved. 05/25/19: Feels well, tolerating Avastin well. 03/31/20: Tolerating Avastin well (now 7.5mg /Kg IV Q 3 weeks), asymptomatic & fully active. 05/26/20: Tolerating maintenance Avastin well ( Occasional gums bleed), feels well, no abdominal pain, no constitutional symptoms of malignancy. 06/13/20: Feels well, tolerating Avastin well, no abdominal pain or changes in bowel habits. 02/16/21: Had AMI while in [place], had 2 stents placed, wearing event monitor. Avastin stopped after [place] (Last dose early November 2020). Stated feeling well at p resent, C/O fatigue, no visceral or skeletal pain, no anorexia or weight loss. 05/22/21: Had multiple hospitalization for CAD, CVA, Cardiomyopathy and most recently severe anemia and suspected GI blood loss, Gi work up negative. CT Scan of abdomen & pelvis revealed mesenteric & retroperitoneal lymphadenopathy. EGD performed at recent hospitalization with negative biopsy and neg active bleeding. CEA trending up and plan was to move forward with RP lymph node biopsy through IR to reassess for treatment plan with suspected recurrence. Daughter has called office today to let us know she was hospitalized, she was scheduled to have follow-up today however due to hospitalization this was cancelled. They are curious to know the next steps regarding her oncologic care. Since her CEA has been increasing and apparently new retroperitoneal adenopathy we will set up for biopsy. I have asked our pffice to set this up and once a date is set then we will hold anticoagualtion (aspirin and brilinta) 5 or 7 (what department requires) prior. I have discussed this with patient and daughter keith. Review of Systems All systems: negative Constitutional: Reports as per HPI Past Medical History Past Medical History: Atrial Fibrillation, Cancer, Chest Pain / Angina, Heart Failure, Myocardial Infarction ([place]) Additional Past Medical History / Comment(s): Cardiomyopathy, Colon cancer. cva with clot removal, Last Myocardial Infarction Date:: 11/2020 History of Any Multi-Drug Resistant Organisms: None Reported Past Surgical History: AICD, Heart Catheterization, Heart Catheterization With Stent, Pacemaker Additional Past Surgical History / Comment(s): CHOLECYSTECTOMY 10/2016, GLAUCOMA, CATARACTS SURG RIGHT EYE 12/13/20, brain clot removal Past Anesthesia/Blood Transfusion Reactions: Postoperative Nausea & Vomiting (PONV) Date of Last Stent Placement:: 12/13/2020 2 STENTS PLACED "FRONT". Type of Cardiac Device: Permanent Pacemaker, AICD Device Placement Date:: 02/2021 Past Psychological History: No Psychological Hx Reported Smoking Status: Never smoker Past Alcohol Use History: Occasional Past Drug Use History: None Reported - Past Family History Father Family Medical History: Diabetes Mellitus Mother Family Medical History: COPD Medications and Allergies Home Medications Medication Instructions Recorded Confirmed Type Bimatoprost [Lumigan .01% Ophth 1 drop LEFT EYE HS 02/27/21 06/03/21 History Soln] Brimonidine Tartrate/Timolol 1 drop LEFT EYE BID 02/27/21 06/03/21 History [Combigan 0.2%-0.5% Eye Drops] Loteprednol Etabonate [Inveltys] 1 drop RIGHT EYE DAILY 02/27/21 06/03/21 History Pantoprazole Sodium [Protonix] 40 mg PO DAILY 02/27/21 06/03/21 History Pravastatin Sodium [Pravachol] 80 mg PO HS 02/27/21 06/03/21 History carvediloL [Coreg*] 12.5 mg PO BID-W/MEALS 30 Days #60 04/19/21 06/03/21 Rx tab Prochlorperazine [Compazine] 5 mg PO Q6HR PRN 2 Days #8 tab 04/20/21 06/03/21 Rx Cyanocobalamin [Vitamin B-12] 500 mcg PO DAILY tab 05/15/21 06/03/21 Rx Meclizine [Antivert] 25 mg PO TID PRN tab 05/15/21 06/03/21 Rx Magnesium Oxide [Mag-Ox] 400 mg PO BID 30 Days #60 tablet 05/16/21 06/03/21 Rx Ferrous Sulfate [Iron (65 MG 325 mg PO W/LUNCH 05/24/21 06/03/21 History Elemental)] Sacubitril/Valsartan [Entresto 24 1 tab PO BID #0 05/26/21 06/03/21 Rx mg-26 mg Tablet] Sodium Bicarbonate Tab 650 mg PO TID tab 05/26/21 06/03/21 Rx Amiodarone [Cordarone] 200 mg PO DAILY tab 06/06/21 Rx Aspirin 81 mg PO DAILY 06/06/21 06/06/21 History Ticagrelor [Brilinta] 90 mg PO BID 06/06/21 06/06/21 History Allergies Allergy/AdvReac Type Severity Reaction Status Date / Time morphine AdvReac Nausea & Verified 06/03/21 08:37 Vomiting Physical Exam Vitals: Vital Signs Temp Pulse Pulse Pulse Resp BP BP 06/06/21 11:55 55 L 18 06/06/21 09:54 55 L 06/06/21 09:53 18 06/06/21 09:01 50 L 55 L 06/06/21 08:57 18 06/06/21 08:56 98.1 F 58 L 18 101/51 06/06/21 05:00 97.5 F L 60 17 06/06/21 00:45 55 L 16 95/55 06/05/21 20:34 98.2 F 56 L 16 113/53 06/05/21 15:56 56 L 88 06/05/21 15:48 97.3 F L 54 L 18 91/57 BP Pulse Ox Pulse Ox Pulse Ox 06/06/21 11:55 100/50 95 06/06/21 09:54 87 L 06/06/21 09:53 87 L 06/06/21 09:01 97 94 L 06/06/21 08:57 97 06/06/21 08:56 90 L 06/06/21 05:00 129/59 94 L 06/06/21 00:45 92 L 06/05/21 20:34 93 L 06/05/21 15:56 94 L 55 L 06/05/21 15:48 84/47 97 Intake and Output 06/05/21 06/06/21 06/06/21 22:59 06:59 14:59 Intake Total 125 240 Output Total 350 Balance 125 -350 240 Intake: Oral 125 240 Output: Urine 350 Other: Voiding Method External Catheter External Catheter External Catheter # Voids 2 Weight 59.5 kg - Constitutional General appearance: cooperative, no acute distress - EENT Eyes: EOMI ENT: hard of hearing, NA/AT - Neck Neck: normal ROM - Respiratory Respiratory: bilateral: diminished - Cardiovascular Rhythm: irregularly irregular - Gastrointestinal General gastrointestinal: soft, tenderness - Integumentary Integumentary: pale - Musculoskeletal Musculoskeletal: generalized weakness - Psychiatric poor historian Results CBC & Chem 7: 06/07/21 08:35 06/07/21 08:35 Labs: Abnormal Lab Results - Last 24 Hours (Table) 06/06/21 Range/Units 10:42 Sodium 132 L (137-145) mmol/L Chloride 97 L (98-107) mmol/L BUN 33 H (7-17) mg/dL Creatinine 1.53 H (0.52-1.04) mg/dL Glucose 182 H (74-99) mg/dL Assessment and Plan Plan: Assessment and Plan (1) Metastatic colorectal cancer Current Visit: Yes Status: Acute Code(s): C19 - MALIGNANT NEOPLASM OF RECTOSIGMOID JUNCTION SNOMED Code(s): 56855189 (2) Anemia - Stable Current Visit: Yes Status: Acute Code(s): D64.9 - ANEMIA, UNSPECIFIED SNOMED Code(s): 181629059 (3) Pulmonary Edema Current Visit: Yes Status: Acute Code(s): R42 - DIZZINESS AND GIDDINESS SNOMED Code(s): 051444223 Since her CEA has been increasing and apparently new retroperitoneal adenopathy we will set up for biopsy. I have asked our pffice to set this up and once a date is set then we will hold anticoagualtion (aspirin and brilinta) 5 or 7 (what department requires) prior. I have discussed this with patient and daughter keith. Patient will follow up with Dr. Cobos after biopsy has resulted for treatment plan options In the interim continue care for acute hospitalization related to cardiopulmonary
[2021-06-08] MEDS: carvediloL 3.125 MG TAB PO SCH (06:30)
--- NOTE | 2021-06-08 08:48 | P.PN ---
Subjective Progress Note Date: 06/08/21 Principal diagnosis: This is a 76-year-old female seen in consultation because of acute kidney injury and is short failure cardiorenal syndrome and chronic kidney disease. Currently she is feeling better less short of breath. She says her edema is resolved. Her blood pressures have been better this morning but yesterday there is a 95/46 documentation. This morning blood pressure is 104/63. Her creatinine continues to go up. Creatinine has been slowly going up from 1.35-1.79 as of yesterday. Today's labs are pending She's not on any diuretics. But she is Entresto since 06/03/2021 She is known with atrial fibrillation coronary artery disease cardiac catheterization pacemaker history of colectomy in 2017 for CA colon. Objective - Vital Signs Vital signs: Vital Signs Temp 97.7 F 06/08/21 03:30 Pulse 64 06/08/21 03:30 Resp 16 06/08/21 03:30 BP 104/63 06/08/21 06:29 Pulse Ox 99 06/08/21 07:32 Intake & Output 06/07/21 06/08/21 06/08/21 18:59 06:59 18:59 Intake Total 592 300 Output Total 600 Balance -8 300 Weight 54.1 kg Intake: Oral 592 300 Output: Urine 600 Other: Voiding Method Toilet # Voids 2 Examination she is awake alert oriented comfortable. HEENT exam no JVP neck is supple no facial asymmetry Lungs are significant for bilateral basilar crackles more extensively on the right than on the left. Good air entry bilaterally Heart sounds are significant for atrial fibrillation Abdomen soft nontender Extremity exam was no edema Neurologically awake alert oriented. Patient claims that she is able to stand up but slowly because of the dizziness - Labs CBC & Chem 7: 06/07/21 08:35 06/07/21 08:35 Labs: Abnormal Lab Results - Last 24 Hours (Table) 06/07/21 06/07/21 06/07/21 Range/Units 08:35 08:35 10:43 RBC 3.06 L (3.80-5.40) m/uL Hgb 9.6 L (11.4-16.0) gm/dL Hct 29.7 L (34.0-46.0) % RDW 16.2 H (11.5-15.5) % Neutrophils # 8.2 H (1.3-7.7) k/uL Lymphocytes # 0.4 L (1.0-4.8) k/uL Sodium 132 L (137-145) mmol/L BUN 43 H (7-17) mg/dL Creatinine 1.79 H (0.52-1.04) mg/dL Glucose 137 H (74-99) mg/dL Magnesium 2.6 H (1.6-2.3) mg/dL AST 60 H (14-36) U/L ALT 51 H (4-34) U/L Total Protein 4.9 L (6.3-8.2) g/dL Albumin 2.4 L (3.5-5.0) g/dL Assessment and Plan Assessment: Impression 1. Acute kidney injury, from congestive heart failure and cardiorenal syndrome. Creatinine was 2.34 on 05/18/1963, 1.46 on 05/26/2021 as an outpatient, came in with creatinine of 1.15 and slightly up to 1.35 and continues to go up to 1.79. This may reflect the addition off Entesto on 06/03/2021 occasional blood pressures are low in the 90s which might add to her perfusion pressure being lower than optimal for her renal function 2. Chronic kidney disease, stage III secondary to nephrosclerosis, creatinine is 1 baseline and GFR is 35 mL per minute dated 05/26/2021 ultrasound showing 9.8 cm and 9.5 cm right and left kidney dated 05/25/2021. 4. History of CA: With MRSA colectomy 2017 and lymph node seen on computed tomography scan of abdomen recently 05/29/2021. Possible recurrence 5. Anemia of chronic illness hemoglobin is 9.2 down from 10.8 yesterday. Recommendation 1. Continue to hold dialysis. 2. If today's creatinine goes up we will discontinue Coreg in coordination with cardiology if there is agreeable . 2. Patient is on Eneteresto to combination of Sacubutril + valsartan will continue the same 3. Continue sodium bicarb 650 3 times a day. 4. check orthostatic changes 5. Obtain chest x-ray is she has extensive crackles on both sides
[2021-06-08] MEDS: SACUBITRIL/VALSARTAN 24 MG-26 MG TABLET PO SCH (09:27)
[2021-06-08] MEDS: AMIODARONE 200 MG TAB PO SCH (09:27)
[2021-06-08] MEDS: ASPIRIN 81 MG PO SCH (09:27)
[2021-06-08] MEDS: PANTOPRAZOLE 40 MG TABLET PO SCH (09:27)
[2021-06-08] MEDS: TICAGRELOR 90 MG TAB PO SCH (09:27)
[2021-06-08] MEDS: MAGNESIUM OXIDE 400 MG TAB PO SCH (09:28)
[2021-06-08] MEDS: COMBIGAN LEFT EYE SCH (09:28)
[2021-06-08] MEDS: LOTEPREDNOL ETABONATE RIGHT EYE SCH (09:28)
[2021-06-08] MEDS: CYANOCOBALAMIN 500 MCG TAB PO SCH (09:28)
[2021-06-08 09:48] LABS: Albumin 2.6 g/dL (3.5-5.0); Calcium 8.6 mg/dL (8.4-10.2); Potassium 4.7 mmol/L (3.5-5.1); Total Bilirubin 0.4 mg/dL (0.2-1.3); Total Protein 5.2 g/dL (6.3-8.2)
[2021-06-08 10:48] VITALS: RESP 18; TEMP 98.3
--- NOTE | 2021-06-08 10:54 | XR ---
EXAMINATION TYPE: XR chest 2V DATE OF EXAM: 06/08/2021 COMPARISON: 06/06/2021 HISTORY: 76-year-old female CHF TECHNIQUE: PA and lateral views FINDINGS: Left anterior chest wall ICD generator with right ventricular lead. Right anterior chest wall injecti on port with catheter tip in the right atrium. Heart upper limits of normal in size. Strandy areas of atelectasis in the lower lungs persist. Sound the patchy density at the left base has improved. Surg ical clips at the left apex. Trace effusions on the lateral view. IMPRESSION: Trace effusions on the lateral view appear new or increased. Given interstitial density, correlate to exclude mild pulmonary vascular congestion. Some of the patchy density at the left base has improved .
[2021-06-08] MEDS: FERROUS SULFATE 325 MG TAB PO SCH (12:21)
[2021-06-08 12:31] VITALS: BP 97/61; PULSE 59
--- NOTE | 2021-06-08 14:07 | P.PN ---
Subjective This is a pleasant 75-year-old female past medical history significant for coronary artery disease status post PCI proximal LAD and mid LAD 11/2020, ischemic cardiomyopathy status post AICD placement in 02/2021, dyslipidemia, hypertension. History of CVA shortly after ICD implantation, she was anticoagulated, however this was stopped due to recent GI bleed. History of colon cancer diagnosed about 5 years ago in [place]. At that time the patient underwent bowel resection without colostomy and chemotherapy. She follows in the office with Dr. Nice. We have been asked to see in consultation for congestive heart failure. Limited echo 05/09/2021 revealed an EF of 30-35%. Patient seen and examined at bedside, no acute distress. She states that she is feeling better and her breathing has improved. Denies any chest pain, lightheadedness, dizziness. Patient's coreg was decreased per nephrology to 3.25ng BID. Patient is currently maintained on amiodarone 200 mg daily, pravastatin 80 mg nightly, and Entresto 24 mg/26 mg twice a day. Patient with 700mL urine output over the past 24 hours. Weight decreased to 58.7 kg from 59.5kg. laboratory data reviewed, sodium 134, potassium 4.7, BUN 35, serum creatinine 1.43 (improving 1.79 yesterday). Lasix held yesterday due to elevated creatinine. CXR- trace efusion lateral view appear increased, strandy areas of atelectasis in the lower lung persists. urine output 600mL over the past 24 ho urs. Blood pressure 107/54, heart rate 63, afebrile, maintaining oxygen saturations 97% on 2 L nasal cannula GENERAL: Well-appearing, well-nourished and in no acute distress. NECK: Supple without JVD or thyromegaly. LUNGS: Breath sounds mild crackles to auscultation bilaterally. Respiration equal and unlabored. No wheezes, rales or rhonchi. HEART: Regular rate and rhythm Systolic murmur noted, No rubs or gallops. S1 and S2 heard. EXTREMITIES: Normal range of motion. trace bilateral lower extremity edema. No clubbing or cyanosis. Peripheral pulses intact. ASSESSMENT Acute on chronic systolic heart failure, NYHA class III Coronary artery disease status post PCI proximal LAD and mid LAD 11/2020 Ischemic cardiomyopathy status post AICD placement in 02/2021 Dyslipidemia History of Hypertension History of CVA History of colon cancer diagnosed about 5-6 years ago in [place] Acute on Chronic Kidney Disease PLAN From a cardiology perspective, patient is stable to be discharged home. Recommend Lasix PO 20mg every other day as outpatient. Follow up with Dr. Nice in the office in 1-2 weeks. Continue Brilinta and aspirin, amiodarone and Coreg, Entresto, statin Nurse Practitioner note has been reviewed, I agree with a documented findings and plan of care. Patient was seen and examined. Objective - Vital Signs Vital signs: Vital Signs Temp 98.3 F 06/08/21 08:00 Pulse 63 06/08/21 08:00 Resp 18 06/08/21 08:00 BP 107/54 06/08/21 10:48 Pulse Ox 97 06/08/21 08:00 Intake & Output 06/07/21 06/08/21 06/08/21 18:59 06:59 18:59 Intake Total 592 300 Output Total 600 Balance -8 300 Weight 54.1 kg Intake: Oral 592 300 Output: Urine 600 Other: Voiding Method Toilet # Voids 2 - Labs CBC & Chem 7: 06/07/21 08:35 06/08/21 07:53 Labs: Abnormal Lab Results - Last 24 Hours (Table) 06/07/21 06/08/21 Range/Units 10:43 07:53 Sodium 134 L (137-145) mmol/L BUN 35 H (7-17) mg/dL Creatinine 1.43 H (0.52-1.04) mg/dL Glucose 116 H (74-99) mg/dL Magnesium 2.6 H (1.6-2.3) mg/dL AST 54 H (14-36) U/L ALT 54 H (4-34) U/L Total Protein 5.2 L (6.3-8.2) g/dL Albumin 2.6 L (3.5-5.0) g/dL
--- NOTE | 2021-06-08 14:31 | P.DS ---
Providers Date of admission: 06/03/21 09:43 Expected date of discharge: 06/08/21 Attending physician: Ritu Walker Consults: 06/03/21 09:43 Consult Physician Routine Consulting Provider: Cardiology Awa Consult Reason/Comments: Acute pulmonary edema Do you want consulting provider notified?: Yes 06/05/21 17:46 Consult Physician Routine Consulting Provider: Suzie Azul Consult Reason/Comments: Pulmonary edema, newly requiring 02 Do you want consulting provider notified?: Yes 06/06/21 10:07 Consult Physician Routine Consulting Provider: Marck Cheema Consult Reason/Comments: known patient Do you want consulting provider notified?: Yes Primary care physician: Crystal Cifuentes Hospital Course: Diagnosis on discharge: 1. Shortness of breath secondary to acute on chronic systolic congestive heart failure 2. Underlining history of systolic congestive heart failure with cardiomyopathy with an EF of 25-30% 3. History of atrial fibrillation 4. AICD and pacemaker placement 5. Underlying history of coronary artery disease 6. Underlining history of colon cancer 7. Underlying history of hyperlipidemia 8. Underlying history of anemia. Patient follows with oncology service. Hospital course: this is a 76-year-old female patient well-known to my services who presented to the ER with concerns of shortness of breath and increased edema. Patient reports that over the past 24 hours symptoms have increased. Patient has had frequent admissions due to hypo-and hyperkalemia. Diuretics were recently stopped. Patient has a past medical history of A. fib, cancer, chest pain, heart failure, myocardial infarction and permanent pacemaker AICD placement. Chest x-ray was completed showing cardiomegaly with increased interstitial reticular pacing likely related to edemapleural effusion. BNP 4510. Patient started on IV Lasix. Cardiology services consulted. Patient's family at [facility] all questions answered. Patient reporting improvement already with 1 dose of IV Lasix. At this time patient denies chest pain. Patient denies nausea vomiting or diarrhea. Patient denies any urinary burning or frequency. On 06/04/2021 patient was seen and examined on the telemetry floor, she is alert and oriented 3 in no apparent distress, her shortness of breath has improved, and lower extremity swelling has improved, BUN and creatinine have increased since yesterday, cardiology and nephrology are following and adjusting patient medications, including the blood pressure medications and diuretics. At this time will continue to monitor will follow in a.m. On 06/05/2021 patient was seen and examined on the telemetry floor, she is alert and oriented 3 in no apparent distress, her shortness of breath he is improving and lower extremity swelling has improved, BUN and creatinine have increased since yesterday, cardiology and nephrology are following and adjusting patient medications, including the blood pressure medications and diuretics. At this time will continue to monitor will follow in a.m. On 06/06/2021 patient was seen and examined on the telemetry floor she is alert and oriented 3 in no apparent distress, she is still complaining of shortness of breath with activity otherwise she denies any complaints there is no fever or chills no headache or dizziness no chest pain no palpitation no cough no nausea or vomiting no abdominal pain no diarrhea no blood in the stools no burning with urination no frequency or urgency and no hematuria. At this time medications are being adjusted by cardiology and nephrology Coreg dose has been decreased to 3.125 mg twice daily aspirin and Brillinta has been restarted by cardiology and dose of Lasix has been decreased to 20 mg daily Will continue to monitor will recheck labs in a.m. patient received a dose of IV iron yesterday and hemoglobin today is up to 10.9 On 06/07/2021 patient was seen and examined on the telemetry floor, case was discussed with caisson worker Dr. Nice, today creatinine is more elevated at 1.79, pulse ox dropped at night to 87%, otherwise patient denies any complaints there is no fever or chills no headache or dizziness no chest pain no shortness of breath no palpitation no cough no nausea or vomiting no abdominal pain no diarrhea no blood in the stools no burning with urination no frequency or urgency and no hematuria, there is no weakness or numbness in any of the extremities no change in vision speech or gait. At this time Lasix is on hold, will recheck labs in a.m.. On 06/08/2021 patient was seen and examined on the telemetry floor case was discussed in details with Dr. Nice caisson worker at this time patient is stable to be discharged home she is very sensitive to changes in diuretics and potassium supplements. At this time she will be discharged home on Lasix 20 mg every other day and potassium chloride 10 mEq every other day, dose of Coreg was decreased to 3.125 mg twice daily during this admission, and dose of amiodarone was decreased to 200 mg by mouth once daily. Patient should have a BMP and magnesium level once weekly and should be followed very closely as outpatient. Follow-up with cardiology in 1-2 weeks, visiting nurse will follow at home, follow-up with primary care physician within one week, follow-up with hematology for anemia, patient received IV iron in the office periodically, follow-up with nephrology in 1-2 weeks. Plan - Discharge Summary Discharge Rx Participant: No New Discharge Prescriptions: New Amiodarone [Cordarone] 200 mg PO DAILY tab carvediloL [Coreg] 3.125 mg PO BID-W/MEALS tab Furosemide [Lasix] 20 mg PO DIRECTED 30 Days #15 tab Potassium Chloride ER [K-Dur 10] 10 meq PO DIRECTED 30 Days #15 tab Continue Loteprednol Etabonate [Inveltys] 1 drop RIGHT EYE DAILY Brimonidine Tartrate/Timolol [Combigan 0.2%-0.5% Eye Drops] 1 drop LEFT EYE BID Bimatoprost [Lumigan .01% Ophth Soln] 1 drop LEFT EYE HS Magnesium Oxide [Mag-Ox] 400 mg PO BID 30 Days #60 tablet Sacubitril/Valsartan [Entresto 24 mg-26 mg Tablet] 1 tab PO BID #0 Ticagrelor [Brilinta] 90 mg PO BID Pravastatin Sodium [Pravachol] 80 mg PO HS Pantoprazole Sodium [Protonix] 40 mg PO DAILY Prochlorperazine [Compazine] 5 mg PO Q6HR PRN 2 Days #8 tab PRN Reason: Nausea Meclizine [Antivert] 25 mg PO TID PRN tab PRN Reason: Vertigo Cyanocobalamin [Vitamin B-12] 500 mcg PO DAILY tab Ferrous Sulfate [Iron (65 MG Elemental)] 325 mg PO W/LUNCH Aspirin 81 mg PO DAILY Discontinued Sodium Bicarbonate Tab 650 mg PO TID tab carvediloL [Coreg*] 12.5 mg PO BID-W/MEALS 30 Days #60 tab Amiodarone [Cordarone] 200 mg PO BID tab Discharge Medication List Bimatoprost [Lumigan .01% Ophth Soln] 1 drop LEFT EYE HS 02/27/21 [History] Brimonidine Tartrate/Timolol [Combigan 0.2%-0.5% Eye Drops] 1 drop LEFT EYE BID 02/27/21 [History] Loteprednol Etabonate [Inveltys] 1 drop RIGHT EYE DAILY 02/27/21 [History] Pantoprazole Sodium [Protonix] 40 mg PO DAILY 02/27/21 [History] Pravastatin Sodium [Pravachol] 80 mg PO HS 02/27/21 [History] Prochlorperazine [Compazine] 5 mg PO Q6HR PRN 2 Days #8 tab 04/20/21 [Rx] Cyanocobalamin [Vitamin B-12] 500 mcg PO DAILY tab 05/15/21 [Rx] Meclizine [Antivert] 25 mg PO TID PRN tab 05/15/21 [Rx] Magnesium Oxide [Mag-Ox] 400 mg PO BID 30 Days #60 tablet 05/16/21 [Rx] Ferrous Sulfate [Iron (65 MG Elemental)] 325 mg PO W/LUNCH 05/24/21 [History] Sacubitril/Valsartan [Entresto 24 mg-26 mg Tablet] 1 tab PO BID #0 05/26/21 [Rx] Amiodarone [Cordarone] 200 mg PO DAILY tab 06/06/21 [Rx] Aspirin 81 mg PO DAILY 06/06/21 [History] Ticagrelor [Brilinta] 90 mg PO BID 06/06/21 [History] Furosemide [Lasix] 20 mg PO DIRECTED 30 Days #15 tab 06/08/21 [Rx] Potassium Chloride ER [K-Dur 10] 10 meq PO DIRECTED 30 Days #15 tab 06/08/21 [Rx] carvediloL [Coreg] 3.125 mg PO BID-W/MEALS tab 06/08/21 [Rx] Follow up Appointment(s)/Referral(s): Clary Nice MD [Family Provider] - 2 Weeks Crystal Cifuentes MD [Primary Care Provider] - 1-2 days [facility], [NON-STAFF] - Patient Instructions/Handouts: Pulmonary Edema (DC), Using Oxygen at Home (DC) Activity/Diet/Wound Care/Special Instructions: Patient requires home oxygen at discharge to manage CHF If patient needs home oxygen need to use [facility] - [phone]; if you still requires oxygen when you fly to [place] contact [employer] at least 2 weeks prior to flying to rent a portable concentrator and to coordinate pickup driver of old equipment and delivery of new equipment - [phone] Please make sure all blood draw scripts are sent with patient for homecare to draw labs at home
== END 2021-06-08 16:22 | disposition home health service (06) | DRG 291 ==
LOC: EC 07:24 → 3SCARD 09:43
PROVIDERS: ADMIT Internal Medicine; ATTEND Internal Medicine
DX: I13.0 Hypertensive heart and chronic kidney disease with heart failure and stage 1 through stage 4 chronic kidney disease, or unspecified chronic kidney disease (principal); I50.23 Acute on chronic systolic (congestive) heart failure; I49.01 Ventricular fibrillation; J96.01 Acute respiratory failure with hypoxia; E87.2 Acidosis; N17.9 Acute kidney failure, unspecified; I47.2 Ventricular tachycardia; C77.5 Secondary and unspecified malignant neoplasm of intrapelvic lymph nodes; C77.2 Secondary and unspecified malignant neoplasm of intra-abdominal lymph nodes; C78.6 Secondary malignant neoplasm of retroperitoneum and peritoneum; D63.1 Anemia in chronic kidney disease; G62.0 Drug-induced polyneuropathy; I48.0 Paroxysmal atrial fibrillation; N18.30 Chronic kidney disease, stage 3 unspecified; Z20.822 Contact with and (suspected) exposure to COVID-19; T45.1X5A Adverse effect of antineoplastic and immunosuppressive drugs, initial encounter; T50.2X5A Adverse effect of carbonic-anhydrase inhibitors, benzothiadiazides and other diuretics, initial encounter; I25.5 Ischemic cardiomyopathy; I25.10 Atherosclerotic heart disease of native coronary artery without angina pectoris; E78.5 Hyperlipidemia, unspecified; I45.10 Unspecified right bundle-branch block; H40.9 Unspecified glaucoma; H26.9 Unspecified cataract; H91.90 Unspecified hearing loss, unspecified ear; I25.2 Old myocardial infarction; Z79.02 Long term (current) use of antithrombotics/antiplatelets; Z79.82 Long term (current) use of aspirin; Z79.899 Other long term (current) drug therapy; Z95.5 Presence of coronary angioplasty implant and graft; Z95.810 Presence of automatic (implantable) cardiac defibrillator; Z85.038 Personal history of other malignant neoplasm of large intestine; Z90.49 Acquired absence of other specified parts of digestive tract; Z87.19 Personal history of other diseases of the digestive system; Z98.41 Cataract extraction status, right eye; Z86.73 Personal history of transient ischemic attack (TIA), and cerebral infarction without residual deficits; Z86.14 Personal history of Methicillin resistant Staphylococcus aureus infection; Z90.79 Acquired absence of other genital organ(s); Z90.721 Acquired absence of ovaries, unilateral; Z98.890 Other specified postprocedural states; Z88.5 Allergy status to narcotic agent; Z83.3 Family history of diabetes mellitus; Z82.5 Family history of asthma and other chronic lower respiratory diseases
CPT/HCPCS: 36415; 71046; 80048; 80053; 82378; 83605; 83735; 83880; 84484; 85025; 85610; 85730; 87635; 93005; 94760; 96374; 99291

== ENCOUNTER 2021-06-26 08:55 | Day surgery (SDC) | payer MEDICARE ==
[2021-06-26] MEDS ORDERED: ALPRAZolam 0.25 MG TAB PO PRN (09:03)
[2021-06-26 09:38] LABS: Mean Platelet Volume 7.3; Platelet Count 547 k/uL (150-450)
[2021-06-26 09:46] VITALS: TEMP 97.6
[2021-06-26 09:55] LABS: INR 1.1 (<1.2); Prothrombin Time 11.5 sec (9.0-12.0)
[2021-06-26] MEDS ORDERED: SODIUM CHLORIDE 0.9% 500 ML 500 ML IV ONE (11:56)
--- NOTE | 2021-06-26 12:48 | CT ---
EXAMINATION TYPE: CT biopsy lymph node DATE OF EXAM: 06/26/2021 HISTORY: Retroperitoneal adenopathy, colon cancer COMPARISON: CT 05/11/2021 Maximal barrier technique was utilized, hand hygiene obtained with soap and water. The skin overlyin g a suitable path to the lesion was localized using CT and the overlying skin was prepped and draped. Lidocaine used for local anesthesia. A skin yanique made with a scalpel. Using CT guidance, access w as gained to the retroperitoneal adenopathy with a 18-gauge core needle through a 17 ga guide. Core specimen submitted to cytology. 3pass(dinh) performed in all. Following the procedure no immediate co mplications. The patient is discharged in stable condition. Hemostasis achieved. IMPRESSION: SUCCESSFUL CT GUIDED CORE BIOPSY. PATHOLOGY PENDING. THIS PROCEDURE WAS PERFORMED BY THE [facility]
[2021-06-26 13:20] VITALS: BP 96/55; PULSE 60; RESP 14
== END 2021-06-26 13:40 | disposition home or self-care (01) ==
LOC: RADPROMAIN 08:55
PROVIDERS: ATTEND Internal Medicine Hematology & Oncology
DX: C77.2 Secondary and unspecified malignant neoplasm of intra-abdominal lymph nodes (principal)
CPT/HCPCS: 88305; 82565; 84520; 85049; 85610; 88342; 88341; 36415; 49180; 77012; J1642; 38505